=== PATIENT | female | born 1950 ===

== ENCOUNTER 2017-07-19 17:51 | Inpatient (IN) | payer MEDICAID, MEDICARE, OTHER ==
[2017-07-19 18:31] VITALS: BMI 41.1
--- NOTE | 2017-07-19 19:29 | ED PDOC ---
Addendum entered and electronically signed by Sami Cornell DO 01:00: ED Course And Treatment - Laboratory Results Result Diagrams: 07/19/17 19:00 07/19/17 19:00 O2 Sat by Pulse Oximetry: 97 Progress Note: NIH Stroke Scale: 9. Parameters were followed per work up and management advice: - Consulted Neurology. - tPA evaluation: Patient has had symptoms for 18 days, outside of the window for tPA intervention. - Further imaging was requested: CT Brain and MRI Brain. - Seizure activity was assessed - pt had no loss of bowel/bladder, no tongue biting, no post-ictal state, no history of seizure activity. Original Note: Arrival/HPI <Sami Cornell - Last Filed: 07/20/17 00:56> <Bruce Panchal - Last Filed: 07/20/17 19:34> - General Chief Complaint: Trauma Time Seen by Provider: 07/19/17 18:00 - History of Present Illness Narrative History of Present Illness (Text): 07/19/17 21:56 67 nepali speaking F with past medical history pertinent for HLD and uterine CA presents with 18 days of L sided weakness s/p 5 falls. Patient and her state that they noticed her getting progressively weaker over the past 18 days, and during that time span she has been falling out of her chair due to weakness in her left side. Patient denies hitting her head or loss of consciousness when she fell today. Patient further states that there is no aura before she falls and that she does not feel dizzy or light headed, just feels weak and feels like she is losing control of her left side. Patient does not remember when her last ECHO or her last Stress Test was, but admits to having a catheterization without stent placement recently. Patient denies f/ch/n/v/d/sob/cp. She further denies hematchezia, hematuria, hematemesis, urinary frequency, urinary retention, and loss of bowel/bladder. No further complaints. (Sami Cornell) Past Medical History - Provider Review Nursing Documentation Reviewed: Yes - Travel History Have you recently traveled outside [place] w/in the past 3 mons?: No - Infectious Disease Hx of Infectious Diseases: None - Reproductive Menopause: Yes - Cardiac Hx Hypertension: Yes - Endocrine/Metabolic Hx Diabetes Mellitus Type 1: Yes - Hematological/Oncological Hx Cancer: Yes Other/Comment: Uterus cancer- last cheml in february 2017 - Musculoskeletal/Rheumatological Hx Falls: Yes - Gastrointestinal Hx Gastrointestinal Disorders: No - Genitourinary/Gynecological Hx Genitourinary Disorders: No - Psychiatric Hx Psychophysiologic Disorder: No Hx Substance Use: No - Anesthesia Hx Anesthesia: No <Kraig,Sami Wilkinsremy - Last Filed: 07/20/17 00:56> Family/Social History - Physician Review Nursing Documentation Reviewed: Yes Family/Social History: No Known Family HX Smoking Status: Never Smoked Hx Alcohol Use: No Hx Substance Use: No <KraigSami diaz Frankyremy - Last Filed: 07/20/17 00:56> Allergies/Home Meds <Sami Cornell Frankyremy - Last Filed: 07/20/17 00:56> <Bruce Panchal - Last Filed: 07/20/17 19:34> Allergies/Adverse Reactions: Allergies Penicillins Allergy (Verified 07/19/17 18:41) ANGIOEDEMA Home Medications: Home Meds Medication Instructions Recorded Confirmed Aspirin [Aspirin Chewable] 81 mg PO DAILY 02/14/16 07/19/17 Atorvastatin Calcium [Lipitor] 40 mg PO DAILY 02/14/16 07/19/17 Gabapentin [Neurontin] 300 mg PO TID 02/14/16 07/19/17 Albuterol HFA [Ventolin HFA 90 2 puff IH Q6 PRN 07/19/17 07/19/17 mcg/actuation (8 g)] Cetirizine HCl [Zyrtec Allergy] 10 mg PO PRN 07/19/17 07/19/17 Cholecalciferol [Vitamin D] 50,000 iu PO QWK 07/19/17 07/19/17 Escitalopram [Lexapro] 10 mg PO DAILY 07/19/17 07/19/17 Fluticasone Nasal [Flonase] 2 spray ANNELISE DAILY 07/19/17 07/19/17 Glimepiride [amaRYL] 4 mg PO ACB 07/19/17 07/19/17 Icosapent Ethyl [Vascepa] 2 cap PO DAILY 07/19/17 07/19/17 Lisinopril [Prinivil] 5 mg PO DAILY 07/19/17 07/19/17 Omeprazole 40 mg PO DAILY 07/19/17 07/19/17 Ondansetron [Zofran] 4 mg PO PRN PRN 07/19/17 07/19/17 SITagliptin [Januvia] 100 mg PO DAILY 07/19/17 07/19/17 Review of Systems - Physician Review All systems were reviewed & negative as marked: Yes - Review of Systems Constitutional: Fatigue. absent: Weight Change, Fevers Eyes: Normal. absent: Vision Changes, Photophobia, Eye Pain ENT: Normal. absent: Hearing Changes, Tinnitus, Epistaxis Respiratory: Normal. absent: SOB, Cough, Sputum, Wheezing Cardiovascular: Normal. absent: Chest Pain, Palpitations, Calf Pain Gastrointestinal: Normal. absent: Abdominal Pain, Diarrhea, Nausea, Vomiting Genitourinary Female: Normal. absent: Dysuria, Frequency, Hematuria Musculoskeletal: Normal. absent: Arthralgias, Back Pain Skin: Normal. absent: Rash, Pruritis, Skin Lesions Neurological: Focal Weakness (See HPI). absent: Normal, Headache, Dizziness Endocrine: Normal. absent: Diaphoresis, Polyuria Hemo/Lymphatic: Normal. absent: Adenopathy, Easy Bleeding Psychiatric: Normal. absent: Anxiety, Depression, Suicidal Ideation <Sami Cornell - Last Filed: 07/20/17 00:56> Physical Exam Temperature: Afebrile Blood Pressure: Hypertensive Pulse: Regular Respiratory Rate: Normal Appearance: Positive for: Well-Appearing, Non-Toxic, Comfortable Pain Distress: None Mental Status: Positive for: Alert and Oriented X 3 Finger Stick Blood Glucose: 178 - Systems Exam Head: Present: Atraumatic, Normocephalic. No: Tenderness, Contusion, Swelling Pupils: Present: Other (L pupil sluggishly accomodating and sluggishly reactive to light) Extroacular Muscles: Present: Other (L eye has horizontal nystagmus when EOM tested. R eye EOMI) Conjunctiva: Present: Normal. No: Injected, Icteric Ears: Present: Normal. No: NORMAL TM, Erythema Mouth: Present: Moist Mucous Membranes. No: Dry, Drooling, Trismus Pharnyx: Present: Normal. No: ERYTHEMA, EXUDATE, TONSILS ENLARGED Nose (External): No: Atraumatic, Abrasion, Contusion Nose (Internal): Present: Normal Inspection. No: Engorged, Edematous Neck: Present: Normal Range of Motion. No: Meningeal Signs, MIDLINE TENDERNESS , Paraspinal Tenderness Respiratory/Chest: Present: Clear to Auscultation, Good Air Exchange. No: Respiratory Distress, Accessory Muscle Use Cardiovascular: Present: Regular Rate and Rhythm, Normal S1, S2. No: Murmurs, Rub Abdomen: Present: Normal Bowel Sounds. No: Tenderness, Distention, Peritoneal Signs, Rebound, Guarding Rectal: Present: Normal Rectal Tone. No: Occult Blood, Rectal Tenderness, Gross Blood, Melena, Hemorrhoids, Fissures, Nodule/Mass/Lesions Back: Present: Normal Inspection. No: CVA Tenderness, Midline Tenderness, Paraspinal Tenderness Upper Extremity: Present: Normal Inspection. No: Cyanosis, Edema, Normal ROM, Neurovascularly Intact (Patient's LUE has 3/5 muscle strength, loss of sensation more on UE than LE) Lower Extremity: Present: Normal Inspection, NORMAL PULSES. No: Edema, CALF TENDERNESS, Cyanosis, Normal ROM, Neurovascularly Intact (Pt's muscle strength in LLE is 2/5 and has almost complete loss of sensation.) Neurological: Present: GCS=15, CN II-XII Intact, Speech Normal, Normal 2Pt Descrimination. No: Motor Func Grossly Intact, Normal Sensory Function (See extremities exam), Normal Cerebellar Funct (Patient is not stable on her feet.) , Norm Deep Tendon Reflexes (1+ LUE and LLE) Skin: Present: Warm, Dry, Normal Color. No: Rashes, Laceration Lymphatic: No: Cervical Adenopathy, Axillary Adenopathy, Inguinal Adenopathy Psychiatric: Present: Alert, Oriented x 3, Normal Insight, Normal Concentration , Normal Affect, Normal Mood. No: Suicidal Ideation, Homicidal Ideation <Sami Cornell - Last Filed: 07/20/17 00:56> Medical Decision Making <Sami Cornell - Last Filed: 07/20/17 00:56> <Bruce Panchal - Last Filed: 07/20/17 19:34> ED Course and Treatment: Assessed: 07/19/17 19:20 Impression: 67 F PMHx of uterine ca with 18 days duration of L sided weakness. L sided facial droop and weakness on exam Plan: - CMP, CBC, Coags, UA U Cx, A1C - EKG - CT Head - Glucose FS Reassessed: 07/19/17 20:30 - CT shows old hemorrhagic stroke VS old stroke VS possible mass - CBC shows acute anemia, FOBT negative - ASA 325 - Dexamethasone - Order Brain MRI - Neuro/s C/s - Neuro C/s - Case d/w Dr. Stephens, who agrees to admission to Hospitalist service on Tele (Sami Cornell) Seen and examined with resident. 67 y/o F c PMHx uterine cancer p/w frequent falls x 1-2 weeks. On exam, L arm and leg motor weakness and L sided facial droop. (Bruce Panchal) - Lab Interpretations Lab Results: 07/19/17 19:00 07/19/17 19:00 Lab Results 07/19/17 19:30: Urine Color Yellow, Urine Appearance Clear, Urine pH 6.5, Ur Specific [place] 1.010, Urine Protein Negative, Urine Glucose (UA) Negative, Urine Ketones Negative, Urine Blood Negative, Urine Nitrate Negative, Urine Bilirubin Negative, Urine Urobilinogen 0.2, Ur Leukocyte Esterase Trace H, Urine RBC Negative, Urine WBC 2 - 5, Ur Epithelial Cells 3 - 4, Urine Bacteria Few 07/19/17 19:00: Hemoglobin A1c 6.8 H 07/19/17 19:00: Sodium 140, Potassium 3.8, Chloride 102, Carbon Dioxide 27, Anion Gap 15, BUN 20, Creatinine 0.9, Est GFR ( Amer) > 60, Est GFR (Non- Af Amer) > 60, Random Glucose 155 H, Calcium 9.5, Total Bilirubin 0.3, AST 28, ALT 39, Alkaline Phosphatase 88, Troponin I < 0.01, Total Protein 6.9, Albumin 3.9, Globulin 3.0, Albumin/Globulin Ratio 1.3, Triglycerides 415 H, Cholesterol 220 H, LDL Cholesterol Direct 123, HDL Cholesterol 38 07/19/17 19:00: PT 10.3, INR 0.95, APTT 27.0 07/19/17 19:00: WBC 5.9, RBC 2.93 L, Hgb 8.6 L, Hct 26.6 L, MCV 90.8, MCH 29.4, MCHC 32.3, RDW 13.3, Plt Count 216, MPV 9.0, Gran % 73.9 H, Lymph % (Auto) 16.9 L, [place] % (Auto) 6.6 H, Eos % (Auto) 2.4, Baso % (Auto) 0.2, Gran # 4.36, Lymph # 1.0 L, [place] # 0.4, Eos # 0.1, Baso # 0.01 - RAD Interpretation Radiology Orders: 07/19/17 19:13 CHEST PORTABLE [RAD] Stat 07/19/17 19:30 HEAD W/O CONTRAST [CT] Stat 07/20/17 05:00 BRAIN W & WO CONTRAST [MRI] Routine - Medication Orders Current Medication Orders: Albuterol/Ipratropium (Duoneb 3 Mg/0.5 Mg (3 Ml) Ud) 3 ml IH Q2H PRN PRN Reason: Shortness of Breath Atorvastatin Calcium (Lipitor) 40 mg PO DAILY [facility] Last Admin: 07/20/17 10:48 Dose: 40 mg Dexamethasone (Decadron Inj) 4 mg IVP Q6H [facility] Last Admin: 07/20/17 15:20 Dose: 4 mg Ergocalciferol (Drisdol 50,000 Intl Units Cap) 1 cap PO Q7D [facility] Escitalopram Oxalate (Lexapro) 10 mg PO DAILY [facility] Last Admin: 07/20/17 10:44 Dose: 10 mg Gabapentin (Neurontin) 300 mg PO TID [facility] PRN Reason: Protocol Last Admin: 07/20/17 17:47 Dose: 300 mg Insulin Human Lispro (Humalog Med) 0 units SC ACHS [facility] PRN Reason: Protocol Last Admin: 07/20/17 17:48 Dose: 5 units Lisinopril (Zestril) 5 mg PO DAILY [facility] Last Admin: 07/20/17 10:44 Dose: 5 mg Loratadine (Claritin) 10 mg PO DAILY PRN PRN Reason: ALLERGY SYMPTOMS Metoprolol Succinate (Toprol Xl) 25 mg PO BRK [facility] Last Admin: 07/20/17 10:47 Dose: 25 mg Non-Formulary Medication (Icosapent Ethyl [Vascepa]) 2 cap PO DAILY [facility] Last Admin: 07/20/17 10:48 Dose: Ondansetron HCl (Zofran Tab) 4 mg PO Q6 PRN PRN Reason: Nausea/Vomiting Pantoprazole Sodium (Protonix Ec Tab) 40 mg PO 0600,1600 [facility] Last Admin: 07/20/17 17:48 Dose: 40 mg Discontinued Medications Aspirin (Aspirin) 325 mg PO STAT STA Stop: 07/19/17 19:14 Last Admin: 07/19/17 20:44 Dose: 325 mg Gadodiamide (Omniscan No Safepak) Confirm Administered Dose 4,305 mg IV .STK- MED ONE Stop: 07/20/17 13:43 NIHSS Scale ([place]) Time Performed: 18:00 - How Severe is the Stoke Baseline Level of Consciousness: 0=Alert LOC to Questions: 0=Both comments correct LOC to commands: 0=Obeys both correctly Best Gaze: 0=Normal Visual: 0=No visual loss Facial: 2=Partial (lower face paralysis) Motor Arm - Left: 2=Falls before 10 sec Motor Arm - Right: 0=No drift Motor Leg - Left: 2=Falls before 5 sec Motor Leg - Right: 0=No drift Limb Ataxia: 0=Absent Sensory: 1=Mild to moderate loss Best Language: 0=No aphasia Dysarthia: 0=Normal articulation Extinction & Inattention (Neglect): 0=Normal, no object Score: 7 Risk Level: Mod Stroke Risk <Bruce Panchal - Last Filed: 07/20/17 19:34> rTPA Inclusion/Exclusion - Refusal of Treatment Patient Refused Treatment: No - Inclusion Criteria for Altepase Patient is 18 years or Older: Yes The Clinical Diagnosis of Ischemic Stroke That is Causing a Potentially Disabling Neurological Deficit: Yes Time of Onset is Well Established to be Less Than 270 Minute Before Treatment Would Begin: No Risk/Benefit Discussed With Patient/Family Member Present: Yes - Exclusion Criteria for Altepase History of: Intracranial hemorrhage, Brain Tumor <Bruce Panchal - Last Filed: 07/20/17 19:34> Disposition/Present on Arrival - Present on Arrival Any Indicators Present on Arrival: Yes History of DVT/PE: No History of Uncontrolled Diabetes: Yes Urinary Catheter: No History of Decub. Ulcer: No History Surgical Site Infection Following: None - Disposition Have Diagnosis and Disposition been Completed?: Yes Disposition Time: 21:45 Patient Plan: Admission <Sami Cornell - Last Filed: 07/20/17 00:56> <Imm,Bruce T - Last Filed: 07/20/17 19:34> - Disposition Diagnosis: CVA (cerebral vascular accident) Disposition: HOSPITALIZED Patient Problems: Current Active Problems Problem Status Onset CVA (cerebral vascular accident) Acute Condition: GUARDED
[2017-07-19 19:31] LABS: BASO # 0.01 K/mm3 (0.0-2.0); BASO % 0.2 % (0.0-3.0); EOS # 0.1 (0.0-0.7); EOS % 2.4 % (1.5-5.0); GRAN # 4.36 (1.4-6.5); GRAN % 73.9 % (50.0-68.0); HEMATOCRIT 26.6 % (36.0-48.0); LYMPH % 16.9 % (22.0-35.0); MEAN CELL VOLUME 90.8 fl (80.0-105.0); MEAN CORPUSCULAR HEMOGLOBIN 29.4 pg (25.0-35.0); MEAN CORPUSCULAR HGB CONC 32.3 g/dl (31.0-37.0); MONO # 0.4 (0.1-0.6); MONO % 6.6 % (1.0-6.0); RED CELL DISTRIBUTION WIDTH 13.3 % (11.5-14.5); WHITE BLOOD COUNT 5.9 10^3/ul (4.5-11.0)
[2017-07-19 19:40] LABS: PH,URINE 6.5 (4.7-8.0); URINE BILIRUBIN NEGATIVE (NEGATIVE); URINE BLOOD NEGATIVE (NEGATIVE); URINE GLUCOSE (UA) NEGATIVE (NEGATIVE); URINE KETONE NEGATIVE (NEGATIVE); URINE LEUKOCYTE ESTERASE TRACE Leu/uL (NEGATIVE); URINE PROTEIN NEGATIVE mg/dL (<30 mg/dL); URINE UROBILINOGEN 0.2 E.U./dL (<1 E.U./dL)
[2017-07-19 19:40] LABS: INR 0.95 (0.93-1.08)
[2017-07-19 19:42] LABS: URINE APPEARANCE CLEAR (CLEAR); URINE COLOR YELLOW (YELLOW)
[2017-07-19 19:45] LABS: ALB/GLOB RATIO 1.3 (1.1-1.8); ALKALINE PHOSPHATASE 88 U/L (38-126); ALT/SGPT 39 U/L (7-56); AST/SGOT 28 U/L (14-36); BILIRUBIN,TOTAL 0.3 mg/dL (0.2-1.3); BLOOD UREA NITROGEN 20 mg/dL (7-21); CALCIUM 9.5 mg/dL (8.4-10.5); CARBON DIOXIDE 27 mmol/L (21-33); CHLORIDE 102 mmol/L (98-107); CHOLESTEROL 220 mg/dL (130-200); GFR AFRICAN-AMERICAN > 60; GLUCOSE,RANDOM 155 mg/dL (70-110); POTASSIUM 3.8 mmol/L (3.6-5.0); SODIUM 140 mmol/L (132-148); TOTAL PROTEIN 6.9 g/dL (5.8-8.3)
[2017-07-19 19:59] LABS: URINE BACTERIA FEW (NEG); URINE RBC NEGATIVE /hpf (0-2)
[2017-07-19 20:04] LABS: TROPONIN I < 0.01 ng/mL
--- NOTE | 2017-07-19 20:48 | CT ---
EXAM: CT Head Without Intravenous Contrast EXAM DATE/TIME: 07/19/2017 7:30 PM CLINICAL HISTORY: The patient age is 67 years old and is female; Signs and symptoms; Other: [id number]; Additional info: R/O old CVA Facility exam id and description: Ct heads head w/o contrast TECHNIQUE: Axial computed tomography images of the head/brain without intravenous contrast. All CT scans at this facility use one or more dose reduction techniques, viz.: automated exposure control; ma/kV adjustment per patient size (including targeted exams where dose is matched to indication; i.e. head); or iterative reconstruction technique. COMPARISON: No relevant prior studies available. FINDINGS: Brain: Within the right parietal lobe, there is a hypodense fluid collection or mass measuring 5.1 x 3.5 cm. This causes mass effect upon the right lateral ventricle. Foci of high density are identified within this abnormality, consistent with calcification or hemorrhage. There is a surrounding zone of hypodense edema. There is effacement of the right parietal sulci overlying the mass. There is midline shift to the left of approximately 4 mm. There are scattered additional foci of hypodensity within the cerebral white matter, likely representing small vessel ischemic disease in a patient this age. The acuity of the white matter disease is indeterminate. The white-ariza differentiation is otherwise preserved demonstrating no acute territorial type infarct. Ventricles: See above. Bones/joints: The calvarium demonstrates no evidence for a depressed fracture. Soft tissues: No acute abnormality. Vasculature: There is atherosclerotic calcification of the cavernous internal carotid arteries and distal vertebral arteries. Sinuses: Unremarkable as visualized. No acute sinusitis. Mastoid air cells: No mastoid effusion. IMPRESSION: 1. Within the right parietal lobe, there is a hypodense fluid collection or mass measuring 5.1 x 3.5 cm. This causes mass effect upon the right lateral ventricle. Foci of high density are identified within this abnormality, consistent with calcification or hemorrhage. There is a surrounding zone of hypodense edema. Differential considerations include malignancy and abscess. MRI with/without contrast is recommended. 2. There is effacement of the right parietal sulci overlying the mass. There is midline shift to the left of approximately 4 mm. 3. There are scattered additional foci of hypodensity within the cerebral white matter, likely representing small vessel ischemic disease in a patient this age. 4. Incidental/non-acute findings are described above.
[2017-07-19] MEDS: Dexamethasone 4 mg/1 ml IVP SCH (21:30)
--- NOTE | 2017-07-19 23:18 | CP.PCM.HP ---
<JONE AIKEN - Last Filed: 07/20/17 02:26> History of Present Illness - History of Present Illness History of Present Illness: CC: left-sided weakness and falls Ms. Watson is a 67yo Armenian F with PMH Uterine CA (s/p hysterectomy, chemo and radiation), HTN, DM2, and HLD who presents c/o LUE and LLE weakness and falls that began 8 days ago. Translation was provided by an ED staff member as well as . Pt states on 06/29, she noticed that she was climbing 4 flights of stairs when she got unusually tired and felt like she was slurring her speech. Then, 8 days ago, she slipped and fell off her chair, and could not lift herself up for over 40mins. Over the span of the 8 days, the patient fell 5 times in total. Per , the patient has a walker but has not been able to use it due to the unilateral L-sided weakness that she's experienced. Pt also complaining of some back pain due to "hernia" in her back (not new), but denied losing bowel/urinary control. Pt denied LOC, head trauma, facial drooping , changes in vision or hearing, n/v/d/constipation, cp/palpitations, sob, dysuria, urinary frequency, fevers/chills, recent illness, recent travel or recent sick contacts. Pt states that she was diagnosed with CA 3 yrs ago but has not been able to see her oncologist since 3 months ago when she states she received last chemotherapy. 10-point ROS was reviewed and is pertinent as above , otherwise unremarkable. PMH: Uterine CA (s/p total abdominal hysterectomy w/ B/L salpingo-oophrectomy, radiation and chemotherapy), HTN, DM2, HLD, and ?herniated discs PSH: FITO w/ B/L salpingo-oophrectomy (3yrs ago), cholecystectomy Meds: as per [facility] Allergies: PCN (rash), and the cold SHx: denied tobacco/etoh/drug use FHx: Mom (breast CA) PMD: Dr. Edna Russell ([facility]) Onc: Dr. Sharon Gaona ([facility]) Present on Admission - Present on Admission Any Indicators Present on Admission: No History of DVT/PE: No History of Uncontrolled Diabetes: No Review of Systems - Review of Systems All systems: reviewed and no additional remarkable complaints except (as per HPI ) Past Patient History - Infectious Disease Hx of Infectious Diseases: None - Past Medical History & Family History Past Medical History?: Yes Pertinent Family History: Mother: Breast CA - Past Social History Smoking Status: Never Smoked Alcohol: None Drugs: Denies Home Situation {Lives}: With Family - CARDIAC Hx Cardiac Disorders: Yes Hx Atrial Fibrillation: No Hx Hypercholesterolemia: Yes Hx Hypertension: Yes - PULMONARY Hx Respiratory Disorders: No Hx Asthma: No (didn't mention) - NEUROLOGICAL Hx Neurological Disorder: No Hx Seizures: No Hx Syncope: No - HEENT Hx HEENT Problems: Yes Hx Cataracts: Yes - RENAL Hx Chronic Kidney Disease: No - ENDOCRINE/METABOLIC Hx Endocrine Disorders: Yes Hx Diabetes Mellitus Type 2: Yes - HEMATOLOGICAL/ONCOLOGICAL Hx Blood Disorders: Yes Hx Cancer: Yes (uterine ) Hx Chemotherapy: Yes Other/Comment: Uterus cancer- last cheml in february 2017 - INTEGUMENTARY Hx Dermatological Problems: No - MUSCULOSKELETAL/RHEUMATOLOGICAL Hx Musculoskeletal Disorders: Yes Hx Falls: Yes - GASTROINTESTINAL Hx Gastrointestinal Disorders: No - GENITOURINARY/GYNECOLOGICAL Hx Genitourinary Disorders: No - PSYCHIATRIC Hx Psychophysiologic Disorder: No Hx Substance Use: No - SURGICAL HISTORY Hx Surgeries: Yes Hx Cholecystectomy: Yes Hx Hysterectomy: Yes - ANESTHESIA Hx Anesthesia: Yes Hx Anesthesia Reactions: No Hx Malignant Hyperthermia: No Meds Allergies/Adverse Reactions: Allergies Allergy/AdvReac Type Severity Reaction Status Date / Time Penicillins Allergy ANGIOEDEMA Verified 07/19/17 18:41 Physical Exam - Constitutional Appears: Well, Non-toxic, No Acute Distress - Head Exam Head Exam: ATRAUMATIC, NORMAL INSPECTION, NORMOCEPHALIC - Eye Exam Eye Exam: EOMI, Nystagmus (w/ R lateral gaze), PERRL. absent: Conjunctival injection Pupil Exam: NORMAL ACCOMODATION - ENT Exam ENT Exam: Mucous Membranes Moist, Normal Exam - Neck Exam Neck exam: Positive for: Normal Inspection - Respiratory Exam Respiratory Exam: Wheezes, NORMAL BREATHING PATTERN. absent: Accessory Muscle Use, Chest Wall Tenderness, Rales, Rhonchi, Stridor - Cardiovascular Exam Cardiovascular Exam: RRR, +S1, +S2. absent: JVD - GI/Abdominal Exam GI & Abdominal Exam: Normal Bowel Sounds, Soft. absent: Distended, Guarding, Tenderness Additional comments: obese habitus - Extremities Exam Extremities exam: Negative for: calf tenderness, full ROM (limited LUE and LLE ROM ), pedal edema, tenderness - Back Exam Back exam: vertebral tenderness (lower thoracic spine). absent: CVA tenderness (L), CVA tenderness (R), paraspinal tenderness, rash noted Additional comments: not step-offs - Neurological Exam Neurological exam: Alert, Oriented x3 - Expanded Neurological Exam Expanded Patient oriented to: person, place, time Cranial nerves: EOM's Intact: Normal, Facial Palsey w/Forehead Movement: Normal , Facial Palsey w/o Forehead Movement: Normal, Facial Sensation: Normal, Nystagmus: Abnormal Right Cerebellar Function: Finger to Nose: Abnormal Left Upper motor neuron: Babinski Sign: Normal, Pronator Drift: Abnormal Left Sensory exam: Lower Extremity Light Touch: Normal, Upper Extremity Light Touch: Normal Neuro motor strength exam: Left Upper Extremity: 3, Right Upper Extremity: 4, Left Lower Extremity: 3, Right Lower Extremity: 4 - Psychiatric Exam Psychiatric exam: Normal Affect, Normal Mood - Skin Skin Exam: Normal Color, Warm - Additional Findings Additional findings: pt is obese L chest port in place Results - Vital Signs Recent Vital Signs: Last Vital Signs Temp 98.5 F 07/19/17 18:03 Pulse 86 07/19/17 22:58 Resp 18 07/19/17 22:58 BP 144/87 07/19/17 22:58 Pulse Ox 97 07/19/17 22:58 - Labs Result Diagrams: 07/19/17 19:00 07/19/17 19:00 Assessment & Plan - Assessment and Plan (Free Text) Assessment: 67 yo F with PMH Uterina CA s/p hysterectomy and chemo and radiation, DM2, HTN and HLD who p/w falls and L-sided weakness x8 days; CT head found have 5.1x3.5 cm fluid collection vs mass with L mass effect of 4mm. Plan: 1. Falls likely 2/2 sudden de-conditioning likely due to brain tumor w/ mass effect vs hemorrhagic vs ischemic CVA w/ hemorrhagic conversion - infectious causes ([employer] infection vs UTI) unlikely as pt is afebrile, with no leukocytosis or septic signs and due to history; will hold abx - high fall risk - L hip/L shoulder X-Ray to r/o fractures - bed side swallow eval - PT/OT eval - hold ASA due to uncertain nature of mass vs head bleed - Transfer to tele for monitoring; r/o AFib - anaya in due to high risk of falling 2. New brain mass vs fluid collection on Head CT - Decadron 4mg Q6H for cerebral edema - MRI Head AM, f/u results - seizure precaution - neur checks q3-4 - Neuro consult, recs appreciated - No Onc consult at this time; please consult after MRI if found to be a new mass 3. Wheezing on exam likely allergic cause vs asthma - Duonebs PRN 4. Hx uterine cancer - Contact Oncologist to find out dates of treatments 5. Hx HTN - cont home meds 6. DM - ISS - FS qACHS - A1C levle Full liquid diet (passed nurse swallow screen x2) SCDs/PTX Patient was seen, evaluated and d/w attending, Dr. Angelo Aiken PGY1 - Date & Time Date: 07/20/17 Time: 23:30 NIHSS Scale([place]) 2 Time Performed: 23:00 - How Severe is the Stoke 7-10 days Level of Consciousness: 0=Alert LOC to Questions: 0=Both comments correct LOC to commands: 0=Obeys both correctly Best Gaze: 0=Normal Visual: 0=No visual loss Facial: 0=Normal Motor Arm - Left: 2=Falls before 10 sec Motor Arm - Right: 0=No drift Motor Leg - Left: 3=No effort against gravity (falls immediately) Motor Leg - Right: 0=No drift Limb Ataxia: 0=Absent Sensory: 0=Normal Best Language: 0=No aphasia Dysarthia: 0=Normal articulation Extinction & Inattention (Neglect): 0=Normal, no object Score: 5 Risk Level: Mod Stroke Risk <Jovanny Stephens - Last Filed: 07/20/17 04:51> Results - Vital Signs Recent Vital Signs: Last Vital Signs Temp 98.0 F 07/20/17 00:25 Pulse 83 07/20/17 02:00 Resp 18 07/20/17 01:53 BP 156/77 H 07/20/17 01:53 Pulse Ox 97 07/20/17 01:00 - Labs Result Diagrams: 07/19/17 19:00 07/19/17 19:00 Attending/Attestation - Attestation I have personally seen and examined this patient.: Yes I have fully participated in the care of the patient.: Yes I have reviewed all pertinent clinical information: Yes
[2017-07-20] MEDS ORDERED: Albuterol-Ipratrop 3 mg / 0.5 (3 ml) UD IH PRN (01:20)
[2017-07-20] MEDS: Dexamethasone 4 mg/1 ml IVP SCH ×4 (03:44→20:47)
[2017-07-20] MEDS: Pantoprazole 40 mg EC Tab PO SCH ×2 (05:57→17:48)
[2017-07-20 06:27] LABS: HEMATOCRIT 26.7 % (36.0-48.0); MEAN CELL VOLUME 90.8 fl (80.0-105.0); MEAN CORPUSCULAR HEMOGLOBIN 29.3 pg (25.0-35.0); MEAN CORPUSCULAR HGB CONC 32.2 g/dl (31.0-37.0); RED CELL DISTRIBUTION WIDTH 13.2 % (11.5-14.5); WHITE BLOOD COUNT 7.1 10^3/ul (4.5-11.0)
[2017-07-20 06:39] LABS: ALB/GLOB RATIO 1.3 (1.1-1.8); ALKALINE PHOSPHATASE 97 U/L (38-126); ALT/SGPT 32 U/L (7-56); AST/SGOT 34 U/L (14-36); BILIRUBIN,TOTAL 0.5 mg/dL (0.2-1.3); BLOOD UREA NITROGEN 18 mg/dL (7-21); CALCIUM 9.4 mg/dL (8.4-10.5); CARBON DIOXIDE 30 mmol/L (21-33); CHLORIDE 102 mmol/L (98-107); GFR AFRICAN-AMERICAN > 60; GLUCOSE,RANDOM 183 mg/dL (70-110); SODIUM 142 mmol/L (132-148)
--- NOTE | 2017-07-20 07:54 | RAD ---
HISTORY: possible past cva COMPARISON: 02/14/2016 FINDINGS: LUNGS: No active pulmonary disease. PLEURA: No pleural effusion or pneumothorax. Nonspecific elevation of right hemidiaphragm. CARDIOVASCULAR: Central venous infusion port. Normal heart size. No congestive change. OSSEOUS STRUCTURES: No significant abnormalities. VISUALIZED UPPER ABDOMEN: Normal. OTHER FINDINGS: None. IMPRESSION: No active disease.
[2017-07-20] MEDS ORDERED: Ergocalciferol 50,000 Intl Units Cap PO SCH (10:00)
[2017-07-20] MEDS: Metoprolol Succinate 25 mg XL Tab PO SCH (10:47)
[2017-07-20] MEDS: ICOSAPENT ETHYL PO SCH (10:48)
[2017-07-20] MEDS: Insulin Lispro (humaLOG) MEDIUM Coverage SC SCH ×3 (10:48→17:48)
--- NOTE | 2017-07-20 13:02 | RAD ---
PROCEDURE: Radiographs of the Left Shoulder HISTORY: s/p fall COMPARISON: No prior. FINDINGS: BONES: Normal. No fracture. JOINTS: Normal. Glenohumeral and acromioclavicular joints preserved. No osteoarthritis. SOFT TISSUES: Normal. OTHER FINDINGS: None. IMPRESSION: Normal radiographs of the left shoulder.
--- NOTE | 2017-07-20 13:04 | RAD ---
PROCEDURE: Left Hip and pelvis X-ray Radiographs. HISTORY: s/p fall COMPARISON: None. FINDINGS: BONES: Normal. No fracture. JOINTS: The left hip is rotated making it difficult to exclude a subcapital or femoral neck fracture. There is no obvious displaced fracture seen. The right hip is unremarkable. The pelvis is unremarkable SOFT TISSUES: Normal. OTHER FINDINGS: None. IMPRESSION: The left hip is rotated making it difficult to exclude a subcapital or femoral neck fracture. There is no obvious displaced fracture seen. The right hip is unremarkable. The pelvis is unremarkable
[2017-07-20] MEDS ORDERED: Gadodiamide 287 MG/ML VIAL (15ML) IV ONE (13:42)
--- NOTE | 2017-07-20 13:49 | CARD ---
APPROVED REPORT EKG Measurement Heart [id number] <Conclusion> Sinus tachycardia Otherwise normal ECG
--- NOTE | 2017-07-20 14:40 | CT ---
PROCEDURE: CT left hip HISTORY: r/o fracture, s/p fall COMPARISON: Not available TECHNIQUE: 2.5 mm contiguous axial sections were acquired through the left hip. Sagittal and coronal images were reformatted from the axial scan. FINDINGS: There is no evidence fracture. There is no lytic or blastic osseous lesion. There is no dislocation. There is very mild superior osteoarthritis. There are no articular erosions. There is no soft tissue abnormality appreciated. There is no juxta-articular hematoma evident. Evaluation of the pelvic soft tissues demonstrates the patient to be status post hysterectomy. IMPRESSION: No acute fracture.
--- NOTE | 2017-07-20 14:54 | MRI ---
PROCEDURE: MRI BRAIN WITH AND WITHOUT CONTRAST HISTORY: brain mass, L sided weakness COMPARISON: CT of the head 07/19/2017. No prior MRI studies TECHNIQUE: Multiplanar, multisequence MR images of the brain were obtained with and without intravenous contrast enhancement. FINDINGS: HEMORRHAGE: On the gradient echo images there are some focal areas of hypo intensity consistent with chronic hemosiderin deposition at the margins of the mass. DWI: No evidence of an acute or early subacute infarction. BRAIN PARENCHYMA: There is a large cystic mass in the right parietal lobe measuring 5.7 cm AP x 3.7 cm wide by 5.7 cm height. This has an enhancing rim which is thicker medially and posteriorly. There is some diffusion abnormality in the thicker portions of the rim. The findings are most consistent with either a primary or solitary metastatic neoplastic lesion. The findings are not specific. There are no other lesions seen. There is some mass effect with effacement of the sulci. There is 6 mm of midline shift ENHANCEMENT: Enhancement in the rim of the mass VENTRICLES: Unremarkable. No hydrocephalus. CRANIUM: Unremarkable. ORBITS: Grossly unremarkable. PARANASAL SINUSES/MASTOIDS: Clear VASCULAR SYSTEM: Skull base flow voids intact. OTHER FINDINGS: None . IMPRESSION: Large cystic lesion with an enhancing rim in the right parietal lobe consistent with either a solitary cystic metastatic lesion or primary brain neoplasm.
--- NOTE | 2017-07-20 16:11 | CON ---
NEUROLOGY CONSULTATION REPORT REASON FOR CONSULTATION: Left-sided weakness. HISTORY OF PRESENT ILLNESS: The patient is a 67-year-old female who has been asked for evaluation of left-sided weakness. The patient was experiencing this left-sided weakness over the last 9 days. She was having difficulty with walking and was falling. The patient fell about 5 times over the last 9 days. She is also complaining of dizziness which is described as lightheaded feeling. She denies any loss of hearing or ringing in the ears. She has a history of uterine cancer and has been getting chemotherapy. REVIEW OF SYSTEMS: Denies any chest pain, shortness of breath, abdominal pain, constipation, diarrhea, dysuria, pyuria, cough, or sputum production. PAST MEDICAL HISTORY: Includes uterine cancer, status post total abdominal hysterectomy with bilateral salpingo-oophorectomy, radiation and chemotherapy; hypertension; diabetes mellitus; hypercholesteremia. MEDICATIONS AT HOME: Included Zofran, Vascepa, Zyrtec, Flonase, Januvia, Prinivil, Amaryl, vitamin D, omeprazole, Toprol XL, Neurontin, Lexapro, Lipitor and aspirin. ALLERGIES: TO PENICILLIN. SOCIAL HISTORY: The patient is a nonsmoker, nonalcoholic and does not use any illicit drugs. FAMILY HISTORY: Reviewed and noncontributory to the case. PHYSICAL EXAMINATION GENERAL: The patient is an middle age female, lying on the bed, in no acute distress. VITAL SIGNS: Her blood pressure is 142/81, heart rate is 88 per minute, breathing at a rate of 16, temperature is 98.1 degree Fahrenheit. HEENT EXAM: Head is normocephalic and atraumatic. NECK: Supple. There are no carotid bruits. LUNGS: Clear. CV EXAM: S1 and S2, audible. No murmurs. ABDOMEN: Soft and nontender. Bowel sounds are present. NEUROLOGY EXAMINATION: Mental status. The patient is awake, alert and oriented to time, place and person. Speech is fluent. Naming and repetition normal. Memory and cognition are intact. Cranial Nerve Examination: Pupils are 3 mm bilaterally, reactive to light. Visual carl are full. Extraocular movements are intact. There is decreased nasolabial fold on the left side. Palate is upgoing bilaterally and tongue is midline. Motor Examination: Tone is normal. There is left-sided hemiparesis with power on the left side about 3/5 and on the right side 5/5. Reflexes are absent. Plantars upgoing on the left side and downgoing on the right side. Gait is untestable at the moment because of the left hemiparesis. Sensory Examination: Intact to soft touch and pinprick bilaterally. LABORATORY DATA: Labs reviewed shows WBC of 7.1, hemoglobin 8.6, hematocrit of 26.7, and platelets of 192. Her sodium is 142, potassium 4, chloride 102, carbon dioxide 30, BUN of 18, creatinine of 0.9, and glucose of 183. She had a CT scan of the head done which showed right parietal lobe hypodensity fluid collection or mass measuring 5.1 x 3.5 cm. There is mass effect above the right lateral ventricle, foci of high density identified within the abnormal, consistent with calcification or hemorrhage. There is a effacement of the right parietal sulci overlying the mass. IMPRESSION: Right parietal mass causing the patient to have left-sided hemiparesis. This is possibly secondary to metastasis with her history of uterine cancer. RECOMMENDATION: 1. The patient will have MRI of the brain with and without contrast. 2. The patient is also to have an electrocochleogram. 3. The patient is to have neurosurgical evaluation. 4. The patient was started on dexamethasone which is to be continued. 5. If the patient's EEG shows any epileptogenic activity then consider starting antiseizure medications. 6. Please continue other treatment and supportive care. Thank you for the opportunity to participate in the care of this patient. Rachell Lambert MD
--- NOTE | 2017-07-20 16:20 | CON ---
SUBJECTIVE: This is a 67-year-old [place]inean-speaking woman who was interviewed today with her nurse, who speaks [place]inean, present. She has past medical history of uterine cancer, status post chemo, RT, and hysterectomy, hypertension, and diabetes. She presented with approximately 8-day history of weakness of the left upper and lower extremity. This occurred progressively and did not occur quickly. She has started to feel that she could not walk with her left leg, could not walk up stairs. She slipped and fell off her chair, and could not lift herself up. She had multiple falls over the last 8 days and she was unable to use a walker. She supposedly is in remission from her cancer which was diagnosed 3 years ago, but is questionable how long it has been since she has been worked up. OBJECTIVE: She currently is awake and alert, has 5/5 strength in the right upper and lower extremities, 4+/5 to 5 strength in the left upper extremity. She has approximately 2+ to 3- strength in the iliopsoas on the left, 4+ in the quad and EHL. In plantar flexion, I could not elicit any sensory deficit; however, she is lying in bed with her left leg externally rotated with the hip. On attempting to bring her leg back to initial position, she grimaces in pain, says it hurts upon elevating her left leg at the hip, she says her hip hurts. Pupils are equal. Her EOM's are full. It is impossible to determine whether or not she has full carl. Her tongue is midline. DIAGNOSTIC STUDIES: She presents with a CT of the head showing what appears to be a large fairly deep cystic mass with some evidence of hemorrhage into it. There was some mass effect and shift. She is scheduled for an MRI. ASSESSMENT AND PLAN: At this point, we need to evaluate the MRI. I also spoke to the [employer] Worker and asked them to get an x-ray of her left hip and pelvis to make certain that there is no pathologic fracture there which is causing her increased leg weakness and her hip pain. I also told them that it would be a good idea at this point to either find out when her last metastatic workup was and if was fairly recent, obtain the results, otherwise to repeat a CT of the chest, abdomen, and pelvis as well as a breast ultrasound or mammography whichever is most useful. I will see her after the MRI is done. We will need to decide in addition to whether or not she needs surgery as to whether we need to use the neuronavigation system. It is unfortunately is not available here and she would need to be transferred to another institution to have surgery done under [facility], but that decision will come after the MRI. If you have any further questions, do not hesitate to contact me. Errol Patino MD
[2017-07-21] MEDS: Insulin Lispro (humaLOG) MEDIUM Coverage SC SCH ×5 (00:48→22:28)
[2017-07-21] MEDS: Dexamethasone 4 mg/1 ml IVP SCH ×4 (02:27→22:39)
[2017-07-21] MEDS: Pantoprazole 40 mg EC Tab PO SCH ×2 (05:12→18:09)
[2017-07-21 05:53] LABS: MEAN CELL VOLUME 89.3 fl (80.0-105.0); MEAN CORPUSCULAR HEMOGLOBIN 29.6 pg (25.0-35.0); MEAN CORPUSCULAR HGB CONC 33.2 g/dl (31.0-37.0); MEAN PLATELET VOLUME 8.6 fl (7.0-11.0); WHITE BLOOD COUNT 7.1 10^3/ul (4.5-11.0)
[2017-07-21 06:03] LABS: ALB/GLOB RATIO 1.1 (1.1-1.8); ALKALINE PHOSPHATASE 78 U/L (38-126); ALT/SGPT 28 U/L (7-56); AST/SGOT 28 U/L (14-36); BILIRUBIN,TOTAL 0.6 mg/dL (0.2-1.3); BLOOD UREA NITROGEN 18 mg/dL (7-21); CALCIUM 8.4 mg/dL (8.4-10.5); CARBON DIOXIDE 26 mmol/L (21-33); CHLORIDE 106 mmol/L (95-110); GFR AFRICAN-AMERICAN > 60; GLUCOSE,RANDOM 204 mg/dL (70-110); POTASSIUM 3.4 mmol/L (3.6-5.0); SODIUM 140 mmol/L (132-148); TOTAL PROTEIN 6.2 g/dL (5.8-8.3)
[2017-07-21 06:07] LABS: HEMATOCRIT 22.6 % (36.0-48.0)
[2017-07-21 08:21] LABS: RETIC% 2.14 % (0.5-1.5)
[2017-07-21] MEDS: Metoprolol Succinate 25 mg XL Tab PO SCH (08:36)
[2017-07-21] MEDS: ICOSAPENT ETHYL PO SCH (12:54)
[2017-07-21 13:29] LABS: FOLATE > 20.0 ng/mL
--- NOTE | 2017-07-21 13:57 | PN ---
DATE: 07/21/2017 SUBJECTIVE: The patient is lying on the bed, in no acute distress. Denies having any headache or dizziness. PHYSICAL EXAMINATION: VITAL SIGNS: Her blood pressure is 133/78, heart rate is 98 per minute, breathing at a rate of 16 per minute, temperature is 98.2 degree Fahrenheit. HEENT: Head is normocephalic and atraumatic. NECK: Supple. There are no carotid bruits. LUNGS: Clear. CARDIOVASCULAR: S1 and S2, audible. No murmurs. ABDOMEN: Soft and nontender with bowel sounds are present. NEUROLOGY EXAMINATION: Mental status; the patient is awake, alert and oriented to time, place and person. Speech is fluent. She follows all simple commands. Cranial nerves; pupils are 3 mm bilaterally, reactive to light. Visual carl are full. Extraocular movements are intact. There is no facial asymmetry. She has left hemiparesis with power 3-4/5 and on the right side 5/5. Plantars downgoing on the right side and upgoing on the left side. LABORATORY DATA: Reviewed. MRI of the brain shows large cystic lesion with enhancing rim in the right parietal lobe consistent with either a solitary cystic metastatic lesion or primary brain neoplasm. IMPRESSION: Right parietal mass possible metastasis versus primary neoplasm. RECOMMENDATION: 1. The patient to be continued on Decadron. 2. The patient to have neurosurgical follow up for possible evacuation of the brain mass. 3. Please continue supportive care and other treatment. Thank you for the opportunity to participate in the care of this patient. Rachell Lambert MD
--- NOTE | 2017-07-21 15:56 | CP.PCM.PN ---
<VidalsallyKadedar - Last Filed: 07/21/17 15:55> Subjective - Date & Time of Evaluation Date of Evaluation: 07/21/17 Time of Evaluation: 07:00 - Subjective Subjective: Patient has been seen and examined. No overnight events reported. She still complains of right lateral head pain which resolved with Motrin administration. Patient still complains of left sided weakness. She denies any dizziness, changes in vision, new focal weakness or sensory loss, fever, chills, CP, SOB, N /V/D, constipation or changes in urination. Objective - Vital Signs/Intake and Output Vital Signs (last 24 hours): Temp Pulse Resp BP Pulse Ox 98.2 F 95 H 18 153/86 H 95 07/21/17 06:00 07/21/17 13:01 07/21/17 06:00 07/21/17 13:01 07/20/17 05:59 Intake and Output: 07/21/17 07/21/17 06:59 18:59 Intake Total 120 Output Total 650 Balance -530 - Medications Medications: Current Medications Albuterol/Ipratropium (Duoneb 3 Mg/0.5 Mg (3 Ml) Ud) 3 ml IH Q2H PRN PRN Reason: Shortness of Breath Atorvastatin Calcium (Lipitor) 40 mg PO DAILY [facility] Last Admin: 07/21/17 13:05 Dose: 40 mg Dexamethasone (Decadron Inj) 4 mg IVP Q6H [facility] Last Admin: 07/21/17 13:06 Dose: 4 mg Ergocalciferol (Drisdol 50,000 Intl Units Cap) 1 cap PO Q7D [facility] Escitalopram Oxalate (Lexapro) 10 mg PO DAILY [facility] Last Admin: 07/21/17 13:06 Dose: 10 mg Gabapentin (Neurontin) 300 mg PO TID [facility] PRN Reason: Protocol Last Admin: 07/21/17 13:08 Dose: 300 mg Ibuprofen (Motrin Tab) 400 mg PO Q6H PRN PRN Reason: Pain, moderate (4-7) Insulin Human Lispro (Humalog Med) 0 units SC ACHS [facility] PRN Reason: Protocol Last Admin: 07/21/17 13:07 Dose: 5 units Lisinopril (Zestril) 5 mg PO DAILY [facility] Last Admin: 07/21/17 13:01 Dose: 5 mg Loratadine (Claritin) 10 mg PO DAILY PRN PRN Reason: ALLERGY SYMPTOMS Metoprolol Succinate (Toprol Xl) 25 mg PO BRK [facility] Last Admin: 07/21/17 08:36 Dose: 25 mg Non-Formulary Medication (Icosapent Ethyl [Vascepa]) 2 cap PO DAILY [facility] Last Admin: 07/21/17 12:54 Dose: Not Given Ondansetron HCl (Zofran Tab) 4 mg PO Q6 PRN PRN Reason: Nausea/Vomiting Pantoprazole Sodium (Protonix Ec Tab) 40 mg PO 0600,1600 [facility] Last Admin: 07/21/17 05:12 Dose: 40 mg - Labs Labs: 07/21/17 05:40 07/21/17 05:40 PT 10.3 Seconds (9.9-11.8) 07/19/17 19:00 INR 0.95 (0.93-1.08) 07/19/17 19:00 APTT 27.0 Seconds (23.7-30.8) 07/19/17 19:00 Assessment and Plan - Assessment and Plan (Free Text) Assessment: 67 yo F with PMH Uterina CA s/p hysterectomy and chemo and radiation, DM2, HTN and HLD who p/w falls and L-sided weakness x8 days; CT head found have 5.1x3.5 cm fluid collection vs mass with L mass effect of 4mm. MRI revealed right sided parietal lobe lesion. Neurosurgery aware and will prepare patient for surgery next week Plan: 1. Falls likely 2/2 left sided weakness 2/2 right parietal lobe lesion. - High fall risk protocol - x-rays show no fractures - PT/OT eval - hold ASA due to uncertain nature of mass vs head bleed - EKG showed sinus tach. Otherwise normal EKG - EEG ordered - anaya in due to high risk of falling -Neuro consults, recs appreciated. -Decadron per Neuro. -MRI shows right parietal lobe lesion. Metastasis vs primary tumor. -Neurosurgery next week. F/U with Neurosurgery for plans and scheduling. 2. Wheezing on exam likely allergic cause vs asthma - Duonebs PRN 3. Hx HTN/HLD - cont home meds (lisonopril, Metoprolol) -Cont. Lipitor 4. DM - ISS -Continue GABApentin Full liquid diet (passed nurse swallow screen x2) SCDs/PTX Dispo: Further investigation reveals that patient suspended chemo 3 months ago due to insurance issues. We will continue home meds of Neurontin, Claritin, and Lexapro. Son of patient is Christian Akins Number is . Son will be updated about need for surgery. Patient was seen, evaluated and d/w attending, Everett Alva PGY1 <Marguerite Lambert - Last Filed: 07/21/17 16:57> Objective - Vital Signs/Intake and Output Vital Signs (last 24 hours): Temp Pulse Resp BP Pulse Ox 98.2 F 95 H 18 153/86 H 95 07/21/17 06:00 07/21/17 13:01 07/21/17 06:00 07/21/17 13:01 07/20/17 05:59 Intake and Output: 07/21/17 07/21/17 06:59 18:59 Intake Total 120 Output Total 650 Balance -530 - Medications Medications: Current Medications Albuterol/Ipratropium (Duoneb 3 Mg/0.5 Mg (3 Ml) Ud) 3 ml IH Q2H PRN PRN Reason: Shortness of Breath Atorvastatin Calcium (Lipitor) 40 mg PO DAILY [facility] Last Admin: 07/21/17 13:05 Dose: 40 mg Dexamethasone (Decadron Inj) 4 mg IVP Q6H [facility] Last Admin: 07/21/17 13:06 Dose: 4 mg Ergocalciferol (Drisdol 50,000 Intl Units Cap) 1 cap PO Q7D [facility] Escitalopram Oxalate (Lexapro) 10 mg PO DAILY [facility] Last Admin: 07/21/17 13:06 Dose: 10 mg Gabapentin (Neurontin) 300 mg PO TID [facility] PRN Reason: Protocol Last Admin: 07/21/17 13:08 Dose: 300 mg Ibuprofen (Motrin Tab) 400 mg PO Q6H PRN PRN Reason: Pain, moderate (4-7) Insulin Human Lispro (Humalog Med) 0 units SC ACHS [facility] PRN Reason: Protocol Last Admin: 07/21/17 13:07 Dose: 5 units Lisinopril (Zestril) 5 mg PO DAILY [facility] Last Admin: 07/21/17 13:01 Dose: 5 mg Loratadine (Claritin) 10 mg PO DAILY PRN PRN Reason: ALLERGY SYMPTOMS Metoprolol Succinate (Toprol Xl) 25 mg PO BRK [facility] Last Admin: 07/21/17 08:36 Dose: 25 mg Non-Formulary Medication (Icosapent Ethyl [Vascepa]) 2 cap PO DAILY [facility] Last Admin: 07/21/17 12:54 Dose: Not Given Ondansetron HCl (Zofran Tab) 4 mg PO Q6 PRN PRN Reason: Nausea/Vomiting Pantoprazole Sodium (Protonix Ec Tab) 40 mg PO 0600,1600 [facility] Last Admin: 07/21/17 05:12 Dose: 40 mg - Labs Labs: 07/21/17 05:40 07/21/17 05:40 PT 10.3 Seconds (9.9-11.8) 07/19/17 19:00 INR 0.95 (0.93-1.08) 07/19/17 19:00 APTT 27.0 Seconds (23.7-30.8) 07/19/17 19:00 Attending/Attestation - Attestation I have personally seen and examined this patient.: Yes I have fully participated in the care of the patient.: Yes I have reviewed all pertinent clinical information, including history, physical exam and plan: Yes Notes (Text): I have seen and examined the patient at bedside. Agree with the above note with the following additions/ exceptions: Briefly this is 67 year old female with history of uterine cancer s/p hysterectomy, chemotherapy, DM-2, HTN, dyslipidemia who presented s/p fall and found to have left sided weakness. MRI brain showed cystic mass which can be primary brain tumor vs metastatic. Neurologist and neurosurgeon on board. Continue decadron. EEG result is pending. I have discussed with Dr Lombardi who plans to do surgery early next week. Discussed in detail with the patient in [place] and also discussed with the patient's son. Will consult oncology as well. Patient reports that she stopped following the oncologist due to insurance reasons. Upon discharge patient will follow up with PMD Harinder Hercules. Dr Marguerite Lambert
[2017-07-21] MEDS: ICOSAPENT ETHYL 1 GM PO SCH (18:30)
--- NOTE | 2017-07-21 19:42 | CARD ---
APPROVED REPORT EXAM: Two-dimensional and M-mode echocardiogram with Doppler and color Doppler. INDICATION R/O CARDIOMYOPATHY 2D DIMENSIONS Left Atrium (2D)2.8 (1.6-4.0cm)IVSd1.1 (0.7-1.1cm) LVDd4.6 (3.9-5.9cm)PWd1.2 (0.7-1.1cm) LVDs3.3 (2.5-4.0cm)FS (%) 27.1 % LVEF (%)50.0 (>50%) M-Mode DIMENSIONS Aortic Root3.10 (2.2-3.7cm)Aortic Cusp Exc.1.90 (1.5-2.0cm) Aortic Valve AoV Peak Bjzplrpi268.0cm/Shahla Peak GR.10mmHg Mitral Valve MV E Tphxmitj24.7cm/sMV A Pewsczkf96.7cm/sE/A ratio1.1 TDI Lateral E' Peak V8.58cm/sMedial E' Peak V5.07cm/sE/Lateral E'11.5 E/Medial E'19.5 Pulmonary Valve PV Peak Rnlynarc450.0cm/sPV Peak Grad.5mmHg Tricuspid Valve TR Peak Kodsuzzs011ub/sRAP [id number] Peak Gr.43mmHg [id number] LEFT VENTRICLE The left ventricle is normal size. There is normal left ventricular wall thickness. Left ventricle systolic function is borderline. Mild Septal hypokinesis Transmitral Doppler flow pattern is Grade I-abnormal relaxation pattern. RIGHT VENTRICLE The right ventricle is normal size. There is normal right ventricular wall thickness. The right ventricular systolic function is normal. ATRIA The left atrium size is normal. The right atrium size is normal. AORTIC VALVE The aortic valve is not well visualized. No aortic regurgitation is present. There is no aortic valvular stenosis. MITRAL VALVE The mitral valve is mildly thickened. Mitral regurgitation is trace. TRICUSPID VALVE There is mild tricuspid regurgitation. There is mild to moderate pulmonary hypertension. GREAT VESSELS The aortic root is normal in size. PERICARDIAL EFFUSION There is a trace loculated anterior pericardial effusion. <Conclusion> The left ventricle is normal size. There is normal left ventricular wall thickness. Left ventricle systolic function is borderline. Mild Septal hypokinesis Transmitral Doppler flow pattern is Grade I-abnormal relaxation pattern. There is mild to moderate pulmonary hypertension.
--- NOTE | 2017-07-21 19:43 | CP.PCM.CON ---
History of Present Illness - History of Present Illness History of Present Illness: 67 year olf female with a history of uterine cancer, diagnosd 3 ears ago, s/p FITO-BSO, radiation and chemotherapy (last treated about 3 months ago), admitted with progressive left sided weakness, found to have a brain mass. She notes to progressive left sided weakness over 1 week which prompted her to come to the hospital. She notes to being on chemotherapy for at least 2 years. Per her last conversation with her oncologist, she believes she was doing well but may have had something in her lung. She is not clear if this was felt to be cancer related. Imagin done here, reveals a solitary near 6 cm right parietal mass. Past medical history: Uterine cancer Past surgical history: FITO-BSO Family history: Mother had breast cancer Social history: Denies tobacco, alcohol, and illicit drug use. Allergies: Penicillins Review of systems: All remaining review of systems including HEENT, cardiovascular, respiratory,gastrointestinal, genitourinary, musculoskeletal, dermatologic, neurologic, and psychiatric are negative unless mentioned in the HPI. Past Patient History - Infectious Disease Hx of Infectious Diseases: None - Past Medical History & Family History Past Medical History?: Yes - Past Social History Smoking Status: Never Smoked Alcohol: None Drugs: Denies Home Situation {Lives}: With Family - CARDIAC Hx Cardiac Disorders: Yes Hx Hypercholesterolemia: Yes Hx Hypertension: Yes - PULMONARY Hx Respiratory Disorders: No Hx Asthma: No (didn't mention) - NEUROLOGICAL Hx Neurological Disorder: No Hx Seizures: No Hx Syncope: No - HEENT Hx HEENT Problems: Yes Hx Cataracts: Yes - RENAL Hx Chronic Kidney Disease: No - ENDOCRINE/METABOLIC Hx Diabetes Mellitus Type 2: Yes - HEMATOLOGICAL/ONCOLOGICAL Hx Blood Disorders: Yes Hx Cancer: Yes (uterine ) Hx Chemotherapy: Yes Other/Comment: Uterus cancer- last cheml in february 2017 - INTEGUMENTARY Hx Dermatological Problems: No - MUSCULOSKELETAL/RHEUMATOLOGICAL Hx Musculoskeletal Disorders: Yes Hx Falls: Yes - GASTROINTESTINAL Hx Gastrointestinal Disorders: No - GENITOURINARY/GYNECOLOGICAL Hx Genitourinary Disorders: No - PSYCHIATRIC Hx Psychophysiologic Disorder: No Hx Substance Use: No - SURGICAL HISTORY Hx Surgeries: Yes Hx Cholecystectomy: Yes Hx Hysterectomy: Yes - ANESTHESIA Hx Anesthesia: Yes Hx Anesthesia Reactions: No Hx Malignant Hyperthermia: No Meds Allergies/Adverse Reactions: Allergies Allergy/AdvReac Type Severity Reaction Status Date / Time Penicillins Allergy ANGIOEDEMA Verified 07/19/17 18:41 - Medications Medications: Current Medications Albuterol/Ipratropium (Duoneb 3 Mg/0.5 Mg (3 Ml) Ud) 3 ml IH Q2H PRN PRN Reason: Shortness of Breath Atorvastatin Calcium (Lipitor) 40 mg PO DAILY [facility] Last Admin: 07/21/17 13:05 Dose: 40 mg Dexamethasone (Decadron Inj) 4 mg IVP Q6H [facility] Last Admin: 07/21/17 18:07 Dose: 4 mg Ergocalciferol (Drisdol 50,000 Intl Units Cap) 1 cap PO Q7D [facility] Escitalopram Oxalate (Lexapro) 10 mg PO DAILY [facility] Last Admin: 07/21/17 13:06 Dose: 10 mg Gabapentin (Neurontin) 300 mg PO TID [facility] PRN Reason: Protocol Last Admin: 07/21/17 18:09 Dose: 300 mg Home Med (Home Med) 2 unit PO DAILY [facility] Last Admin: 07/21/17 18:30 Dose: 2 unit Ibuprofen (Motrin Tab) 400 mg PO Q6H PRN PRN Reason: Pain, moderate (4-7) Last Admin: 07/21/17 18:07 Dose: 400 mg Insulin Human Lispro (Humalog Med) 0 units SC ACHS [facility] PRN Reason: Protocol Last Admin: 07/21/17 18:09 Dose: 3 units Lisinopril (Zestril) 5 mg PO DAILY [facility] Last Admin: 07/21/17 13:01 Dose: 5 mg Loratadine (Claritin) 10 mg PO DAILY [facility] PRN Reason: ALLERGY SYMPTOMS Metoprolol Succinate (Toprol Xl) 25 mg PO BRK [facility] Last Admin: 07/21/17 08:36 Dose: 25 mg Ondansetron HCl (Zofran Tab) 4 mg PO Q6 PRN PRN Reason: Nausea/Vomiting Pantoprazole Sodium (Protonix Ec Tab) 40 mg PO 0600,1600 [facility] Last Admin: 07/21/17 18:09 Dose: 40 mg Physical Exam - Head Exam Head Exam: ATRAUMATIC - Eye Exam Eye Exam: Normal appearance - ENT Exam ENT Exam: Mucous Membranes Dry - Respiratory Exam Respiratory Exam: NORMAL BREATHING PATTERN - Cardiovascular Exam Cardiovascular Exam: +S1, +S2 - GI/Abdominal Exam GI & Abdominal Exam: Normal Bowel Sounds - Extremities Exam Extremities exam: Positive for: normal inspection - Neurological Exam Neurological exam: Oriented x3 - Psychiatric Exam Psychiatric exam: Normal Affect, Normal Mood - Skin Skin Exam: Warm Results - Vital Signs Recent Vital Signs: Last Vital Signs Temp 97.6 F 07/21/17 17:38 Pulse 82 07/21/17 18:00 Resp 19 07/21/17 17:38 BP 127/61 07/21/17 17:38 Pulse Ox 95 07/20/17 05:59 - Labs Result Diagrams: 07/21/17 05:40 07/21/17 05:40 Labs: Laboratory Results - last 24 hr 07/20/17 07/20/17 07/20/17 11:44 16:30 21:19 WBC RBC Hgb Hct MCV MCH MCHC RDW Plt Count MPV Retic Count Sodium Potassium Chloride Carbon Dioxide Anion Gap BUN Creatinine Est GFR ( Amer) Est GFR (Non-Af Amer) POC Glucose (mg/dL) 316 H 268 H 218 H Random Glucose Calcium Ferritin Total Bilirubin AST ALT Alkaline Phosphatase Total Protein Albumin Globulin Albumin/Globulin Ratio Vitamin B12 Folate 07/21/17 07/21/17 07/21/17 05:30 05:40 05:40 WBC 7.1 RBC 2.53 L Hgb 7.5 L Hct 22.6 L MCV 89.3 MCH 29.6 MCHC 33.2 RDW 13.0 Plt Count 197 MPV 8.6 Retic Count 2.14 H Sodium 140 Potassium 3.4 L Chloride 106 Carbon Dioxide 26 Anion Gap 11 BUN 18 Creatinine 0.8 Est GFR ( Amer) > 60 Est GFR (Non-Af Amer) > 60 POC Glucose (mg/dL) Random Glucose 204 H Calcium 8.4 Ferritin Total Bilirubin 0.6 AST 28 ALT 28 Alkaline Phosphatase 78 Total Protein 6.2 Albumin 3.3 Globulin 2.9 Albumin/Globulin Ratio 1.1 Vitamin B12 Folate 07/21/17 07/21/17 07/21/17 05:40 07:26 12:54 WBC RBC Hgb Hct MCV MCH MCHC RDW Plt Count MPV Retic Count Sodium Potassium Chloride Carbon Dioxide Anion Gap BUN Creatinine Est GFR ( Amer) Est GFR (Non-Af Amer) POC Glucose (mg/dL) 245 H 266 H Random Glucose Calcium Ferritin 237.0 Total Bilirubin AST ALT Alkaline Phosphatase Total Protein Albumin Globulin Albumin/Globulin Ratio Vitamin B12 508 Folate > 20.0 Assessment & Plan (1) Brain mass Assessment and Plan: on steroids will check CT C/A/P uterine cancer does not commonly metastasize to the brain will add breast cancer tumor marker; last mammogram 4 years ago further treatment recommendations based on imaging Status: Acute (2) Anemia Assessment and Plan: will check ferritin, retic count, b12, folate, FOBT to further characterize transfusion support PRN Thank you for this interesting consult. Status: Acute
[2017-07-22] MEDS: Dexamethasone 4 mg/1 ml IVP SCH ×4 (00:24→21:29)
[2017-07-22] MEDS: Pantoprazole 40 mg EC Tab PO SCH ×2 (05:20→19:49)
[2017-07-22 07:26] LABS: HEMATOCRIT 28.8 % (36.0-48.0); MEAN CORPUSCULAR HEMOGLOBIN 28.8 pg (25.0-35.0); MEAN CORPUSCULAR HGB CONC 31.9 g/dl (31.0-37.0); MEAN PLATELET VOLUME 8.8 fl (7.0-11.0); RETIC% 2.59 % (0.5-1.5); WHITE BLOOD COUNT 8.2 10^3/ul (4.5-11.0)
[2017-07-22 07:52] LABS: IRON 106 ug/dL (45-180)
[2017-07-22 07:55] LABS: ALB/GLOB RATIO 1.3 (1.1-1.8); ALKALINE PHOSPHATASE 85 U/L (38-126); ALT/SGPT 40 U/L (7-56); AST/SGOT 26 U/L (14-36); BILIRUBIN,TOTAL 0.5 mg/dL (0.2-1.3); BLOOD UREA NITROGEN 28 mg/dL (7-21); CALCIUM 9.6 mg/dL (8.4-10.5); CARBON DIOXIDE 29 mmol/L (21-33); CHLORIDE 102 mmol/L (98-107); GFR AFRICAN-AMERICAN > 60; GLUCOSE,RANDOM 249 mg/dL (70-110); POTASSIUM 4.7 mmol/L (3.6-5.0); SODIUM 140 mmol/L (132-148); TOTAL PROTEIN 7.1 g/dL (5.8-8.3)
[2017-07-22] MEDS: Insulin Lispro (humaLOG) MEDIUM Coverage SC SCH ×4 (09:40→21:25)
[2017-07-22] MEDS: ICOSAPENT ETHYL 1 GM PO SCH (09:43)
[2017-07-22] MEDS: Metoprolol Succinate 25 mg XL Tab PO SCH (09:50)
--- NOTE | 2017-07-22 10:46 | CP.PCM.PN ---
Subjective - Date & Time of Evaluation Date of Evaluation: 07/22/17 Time of Evaluation: 09:30 - Subjective Subjective: Patient was seen and examined with medical sales associate. Patient is still c/o leg sided weakness, denies headache or dizzines. There is no chest pain or palpitation. Objective - Vital Signs/Intake and Output Vital Signs (last 24 hours): Temp Pulse Resp BP Pulse Ox 98.3 F 95 H 19 141/62 93 L 07/22/17 06:00 07/22/17 09:50 07/22/17 06:00 07/22/17 09:50 07/22/17 06:00 Intake and Output: 07/22/17 07/22/17 06:59 18:59 Intake Total 720 Output Total 0 Balance 720 - Medications Medications: Current Medications Albuterol/Ipratropium (Duoneb 3 Mg/0.5 Mg (3 Ml) Ud) 3 ml IH Q2H PRN PRN Reason: Shortness of Breath Atorvastatin Calcium (Lipitor) 40 mg PO DAILY [facility] Last Admin: 07/22/17 09:37 Dose: 40 mg Dexamethasone (Decadron Inj) 4 mg IVP Q6 [facility] Last Admin: 07/22/17 05:20 Dose: 4 mg Ergocalciferol (Drisdol 50,000 Intl Units Cap) 1 cap PO Q7D [facility] Escitalopram Oxalate (Lexapro) 10 mg PO DAILY [facility] Last Admin: 07/22/17 09:37 Dose: 10 mg Gabapentin (Neurontin) 300 mg PO TID [facility] PRN Reason: Protocol Last Admin: 07/22/17 09:37 Dose: 300 mg Home Med (Home Med) 2 unit PO DAILY [facility] Last Admin: 07/22/17 09:43 Dose: 2 unit Ibuprofen (Motrin Tab) 400 mg PO Q6H PRN PRN Reason: Pain, moderate (4-7) Last Admin: 07/21/17 18:07 Dose: 400 mg Insulin Human Lispro (Humalog Med) 0 units SC ACHS [facility] PRN Reason: Protocol Last Admin: 07/22/17 09:40 Dose: 5 units Lisinopril (Zestril) 5 mg PO DAILY [facility] Last Admin: 07/22/17 09:44 Dose: 5 mg Loratadine (Claritin) 10 mg PO DAILY [facility] PRN Reason: ALLERGY SYMPTOMS Metoprolol Succinate (Toprol Xl) 25 mg PO BRK [facility] Last Admin: 07/22/17 09:50 Dose: 25 mg Ondansetron HCl (Zofran Tab) 4 mg PO Q6 PRN PRN Reason: Nausea/Vomiting Pantoprazole Sodium (Protonix Ec Tab) 40 mg PO 0600,1600 [facility] Last Admin: 07/22/17 05:20 Dose: 40 mg - Labs Labs: 07/22/17 07:00 07/22/17 07:00 PT 10.3 Seconds (9.9-11.8) 07/19/17 19:00 INR 0.95 (0.93-1.08) 07/19/17 19:00 APTT 27.0 Seconds (23.7-30.8) 07/19/17 19:00 - Constitutional Appears: Non-toxic, No Acute Distress - Head Exam Head Exam: NORMOCEPHALIC - Eye Exam Pupil Exam: NORMAL ACCOMODATION - Respiratory Exam Respiratory Exam: Clear to Ausculation Bilateral - Cardiovascular Exam Cardiovascular Exam: REGULAR RHYTHM Additional comments: no rub or gallop - GI/Abdominal Exam GI & Abdominal Exam: Soft, Normal Bowel Sounds - Extremities Exam Additional comments: no edema, - Neurological Exam Neurological Exam: Alert, Awake, CN II-XII Intact, Oriented x3 Neuro motor strength exam: Left Upper Extremity: 3, Right Upper Extremity: 5, Left Lower Extremity: 3, Right Lower Extremity: 5 Additional comments: Plantar are non specific. Assessment and Plan - Assessment and Plan (Free Text) Plan: 67 F with PMH of uterine cancer s/p hysterectomy, chemotherapy, DM-2, HTN, dyslipidemia who presented s/p fall and found to have left sided weakness. MRI brain showed cystic mass which can be primary brain tumor vs metastatic. 1. 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 Monitor Neuro check Seizure precaution on IV Decadron as Per Neurology. Plan for surgery next week. Neurology, neuro surgery and Oncology evaluation is appreciated. 2.HTN Stable, on Lisinopril and Metoprolol will monitor blood pressure and adjust medications. 3. DM Blood sugars are running high, oral hypoglycemic are on hold, patient is on Decadron Continue sliding scale coverage will add low dose of Levemir will monitor blood sugars and adjust medications. 4.DVT Prophylaxis with SCD Management plan was discussed in detail with patient Education was provided.
--- NOTE | 2017-07-22 11:11 | EEG ---
DATE: INTRODUCTION: This is a digitally recorded EEG monitoring using standard EEG montages. BACKGROUND RHYTHM: The EEG shows a background activity of 9 Hertz alpha activity in parieto-occipital region. The EEG activity is bilaterally symmetrical and synchronous. There is attenuation of the background activity on eye opening. No sleep recording was noted. ABNORMAL POTENTIALS: No spike, sharp waves or focal slowing was seen. Photic stimulation and hyperventilation. Photic stimulation did not reveal any abnormality, hyperventilation was not performed. IMPRESSION: Normal EEG. No epileptiform activity seen in this EEG recording. Rachell Lambert MD
[2017-07-22 12:51] LABS: FOLATE > 20.0 ng/mL
--- NOTE | 2017-07-22 13:14 | PN ---
NEUROLOGY PROGRESS NOTE DATE: SUBJECTIVE: The patient is lying in the bed, in no acute distress. Denies having any headache or dizziness. Her left-sided weakness is better. PHYSICAL EXAMINATION: VITAL SIGNS: Blood pressure is 141/62, heart rate is 95 per minute, breathing at the rate of 16 per minute, and temperature is 98.3 degrees Fahrenheit. HEENT: Head is normocephalic and atraumatic. NECK: Supple. There are no carotid bruits. LUNGS: Clear. CARDIOVASCULAR: S1 and S2 audible. No murmurs. ABDOMEN: Soft and nontender with bowel sounds. NEUROLOGIC: Mental status; the patient is awake, alert, and oriented to place, person, and years. Speech is fluent. Naming and repetition is normal. Memory and cognition are intact. Cranial nerve examination: Pupils are 3 mm, bilaterally reactive to light. Visual carl are full. Extraocular movements are intact. There is no facial asymmetry. Motor Examination: Tone is normal. Power on the right side is 5/5 and power on the left side is 4/5. Plantars downgoing bilaterally. LABORATORY DATA: Reviewed. Electroencephalogram is normal. IMPRESSION: Right parietal mass, possible metastasis versus primary neoplasm. RECOMMENDATIONS: 1. The patient was evaluated by oncology yesterday and recommended some tumor markers. 2. We will decrease the dose of Decadron to 4 mg every 8 hours. 3. Please continue other treatment and supportive care as well as physical therapy. Thank you for the opportunity to participate in the care of this patient. Rachell Lambert MD
[2017-07-22] MEDS ORDERED: Iohexol 240 (50 ml) ONE (15:00)
[2017-07-22] MEDS ORDERED: Iohexol 350 MG/100 ML VIAL ONE (15:00)
--- NOTE | 2017-07-22 19:14 | CT ---
EXAM: CT Chest With Intravenous Contrast CLINICAL HISTORY: 67 years old, female; Condition or disease; Other: Brain mass, HX of uterine cancer ? new primary TECHNIQUE: Axial computed tomography images of the chest with intravenous contrast. All CT scans at this facility use one or more dose reduction techniques, viz.: automated exposure control; ma/kV adjustment per patient size (including targeted exams where dose is matched to indication; i.e. head); or iterative reconstruction technique. Coronal and sagittal reformatted images were created and reviewed. CONTRAST: 100 mL of administered intravenously. COMPARISON: CT - ANGIO CHEST PE PROTOCOL 02/14/2016 8:28:43 AM FINDINGS: Artifacts: Motion artifact degrades image quality. Tubes and catheters: There is a Port-A-Cath in the left chest wall. Catheter tip projects in the proximal superior vena cava. Lungs and pleural spaces: Trachea and main bronchi are patent. There is patchy right apical pleural thickening, unchanged. There is a calcified right upper lobe granuloma, unchanged. There is left apical pleural thickening slightly greater than on the prior study. There is subsegmental atelectasis in both lower lobes left greater than right. There is minimal patchy airspace disease in the right costophrenic sulcus. There are no effusions. Heart: The heart is enlarged. There are coronary calcifications. Aorta and main pulmonary artery are normal in caliber.There are vascular calcifications. Mediastinum: The esophagus is unremarkable. There is a small hiatal hernia. There are no pathologically enlarged mediastinal or hilar nodes. Thyroid: Thyroid is unremarkable Bones/joints: There are degenerative changes in the osseus structures. Soft tissues: unremarkable Upper abdomen: There is elevation of the right diaphragm Refer to following report for abdominal findings IMPRESSION: Subsegmental atelectasis/scarring at both lung bases; right upper lobe granuloma; cardiomegaly and atherosclerotic disease No CT findings to suggest metastatic or new malignant disease EXAM: CT Abdomen and Pelvis With Intravenous Contrast EXAM DATE/TIME: 07/21/2017 8:10 PM CLINICAL HISTORY: 67 years old, female; Condition or disease; Other: Brain mass, HX of uterine cancer ? new primary TECHNIQUE: Axial computed tomography images of the abdomen and pelvis with intravenous contrast. All CT scans at this facility use one or more dose reduction techniques, viz.: automated exposure control; ma/kV adjustment per patient size (including targeted exams where dose is matched to indication; i.e. head); or iterative reconstruction technique. Oral contrast was administered. Coronal and sagittal reformatted images were created and reviewed. CONTRAST: 100 mL of [id number] administered intravenously. COMPARISON: There are are no prior studies for comparison. FINDINGS: Artifacts: Motion artifact degrades image quality. Lower thorax: Refer to a report for chest findings There is elevation of right diaphragm. ABDOMEN: Liver: There is fatty infiltration of the liver. Gallbladder and bile ducts: Gallbladder is absent. Common duct is unremarkable. Pancreas: Pancreas is mildly atrophic. Spleen: unremarkable Adrenals: unremarkable Kidneys and ureters: There is a left renal Kidneys and ureters are otherwise unremarkable. Stomach and bowel: Stomach is almost completely empty. Rotation is normal. Small bowel is mildly distended. There is contrast fluid and air in the small bowel. Small bowel extends into a nonobstructing left lower quadrant spigelian hernia. Appendix and terminal ileum are unremarkable. Colon is incompletely distended which limits evaluation. Appendix: See above. PELVIS: Bladder: Urinary bladder is unremarkable. Reproductive: Uterus is absent. There are no adnexal masses. ABDOMEN and PELVIS: Intraperitoneal space: There is no free air or free fluid. Bones/joints: There are degenerative changes in the osseus structures. Soft tissues: There is a left lower quadrant spigelian hernia. Vasculature: There are vascular calcifications. Lymph nodes: There is no pathologic adenopathy. IMPRESSION: Fatty liver, no acute solid visceral abnormality, no bowel obstruction; nonobstructing left lower quadrant spigelian hernia containing small bowel; prior hysterectomy Additional findings as described above.
[2017-07-22] MEDS ORDERED: Insulin Detemir 100 units/ml Vial (Levemir) SC SCH (22:00)
[2017-07-23] MEDS: Dexamethasone 4 mg/1 ml IVP SCH ×3 (05:42→22:57)
[2017-07-23] MEDS: Pantoprazole 40 mg EC Tab PO SCH (05:42)
[2017-07-23 06:00] LABS: HEMATOCRIT 28.2 % (36.0-48.0); MEAN CELL VOLUME 89.2 fl (80.0-105.0); MEAN CORPUSCULAR HEMOGLOBIN 29.4 pg (25.0-35.0); MEAN PLATELET VOLUME 8.8 fl (7.0-11.0); RED CELL DISTRIBUTION WIDTH 12.7 % (11.5-14.5); WHITE BLOOD COUNT 7.9 10^3/ul (4.5-11.0)
[2017-07-23 06:21] LABS: ALB/GLOB RATIO 1.3 (1.1-1.8); ALKALINE PHOSPHATASE 79 U/L (38-126); ALT/SGPT 38 U/L (7-56); AST/SGOT 31 U/L (14-36); BILIRUBIN,TOTAL 0.6 mg/dL (0.2-1.3); BLOOD UREA NITROGEN 30 mg/dL (7-21); CALCIUM 9.2 mg/dL (8.4-10.5); CARBON DIOXIDE 30 mmol/L (21-33); CHLORIDE 102 mmol/L (98-107); GFR AFRICAN-AMERICAN > 60; GLUCOSE,RANDOM 223 mg/dL (70-110); POTASSIUM 4.3 mmol/L (3.6-5.0); SODIUM 140 mmol/L (132-148); TOTAL PROTEIN 6.8 g/dL (5.8-8.3)
[2017-07-23] MEDS: Insulin Lispro (humaLOG) MEDIUM Coverage SC SCH ×4 (08:43→23:00)
[2017-07-23] MEDS: Metoprolol Succinate 25 mg XL Tab PO SCH (08:43)
[2017-07-23] MEDS: Alum-Mag Hydrox-Simethicone Susp (30 mL) PO SCH ×3 (08:43→22:56)
[2017-07-23] MEDS: ICOSAPENT ETHYL 1 GM PO SCH (09:40)
--- NOTE | 2017-07-23 11:07 | CP.PCM.PN ---
<Mode Loera - Last Filed: 07/23/17 11:50> Subjective - Date & Time of Evaluation Date of Evaluation: 07/23/17 Time of Evaluation: 09:03 - Subjective Subjective: Patient was seen and examined at bedside. The patient reports a slight improvement in left sided weakness. Patient is also reporting a phlegm production. Patient denies any chest pain, shortness of breath, nausea, vomiting, lightheadedness, dizziness, changes in vision, bowel incontinence, urinary incontinence or any other complaints. Objective - Vital Signs/Intake and Output Vital Signs (last 24 hours): Temp Pulse Resp BP Pulse Ox 98.9 F 80 19 142/69 95 07/23/17 06:00 07/23/17 09:39 07/23/17 06:00 07/23/17 09:39 07/23/17 06:00 Intake and Output: 07/23/17 07/23/17 06:59 18:59 Intake Total 660 Output Total 1600 Balance -940 - Medications Medications: Current Medications Al Hydrox/Mg Hydrox/Simethicone (Maalox Plus 30 Ml) 30 ml PO Q8 [facility] Last Admin: 07/23/17 08:43 Dose: 30 ml Albuterol/Ipratropium (Duoneb 3 Mg/0.5 Mg (3 Ml) Ud) 3 ml IH Q2H PRN PRN Reason: Shortness of Breath Atorvastatin Calcium (Lipitor) 40 mg PO DAILY [facility] Last Admin: 07/23/17 09:39 Dose: 40 mg Dexamethasone (Decadron Inj) 4 mg IVP Q8 [facility] Last Admin: 07/23/17 05:42 Dose: 4 mg Ergocalciferol (Drisdol 50,000 Intl Units Cap) 1 cap PO Q7D [facility] Escitalopram Oxalate (Lexapro) 10 mg PO DAILY [facility] Last Admin: 07/23/17 09:39 Dose: 10 mg Gabapentin (Neurontin) 300 mg PO TID [facility] PRN Reason: Protocol Last Admin: 07/23/17 09:39 Dose: 300 mg Home Med (Home Med) 2 unit PO DAILY [facility] Last Admin: 07/23/17 09:40 Dose: 2 unit Ibuprofen (Motrin Tab) 400 mg PO Q6H PRN PRN Reason: Pain, moderate (4-7) Last Admin: 07/23/17 10:58 Dose: 400 mg Insulin Detemir (Levemir) 10 unit SC HS [facility] Insulin Human Lispro (Humalog Med) 0 units SC ACHS [facility] PRN Reason: Protocol Last Admin: 07/23/17 08:43 Dose: 3 units Lisinopril (Zestril) 5 mg PO DAILY [facility] Last Admin: 07/23/17 09:39 Dose: 5 mg Loratadine (Claritin) 10 mg PO DAILY PRN PRN Reason: ALLERGY SYMPTOMS Metoprolol Succinate (Toprol Xl) 25 mg PO BRK [facility] Last Admin: 07/23/17 08:43 Dose: 25 mg Ondansetron HCl (Zofran Tab) 4 mg PO Q6 PRN PRN Reason: Nausea/Vomiting Pantoprazole Sodium (Protonix Ec Tab) 40 mg PO 0600,1600 [facility] Last Admin: 07/23/17 05:42 Dose: 40 mg - Labs Labs: 07/23/17 05:46 07/23/17 05:46 PT 10.3 Seconds (9.9-11.8) 07/19/17 19:00 INR 0.95 (0.93-1.08) 07/19/17 19:00 APTT 27.0 Seconds (23.7-30.8) 07/19/17 19:00 - Head Exam Head Exam: ATRAUMATIC, NORMAL INSPECTION, NORMOCEPHALIC - Eye Exam Eye Exam: EOMI, Normal appearance, PERRL. absent: Periorbital tenderness Pupil Exam: NORMAL ACCOMODATION, PERRL. absent: Irregular, Unequal - ENT Exam ENT Exam: Mucous Membranes Moist - Neck Exam Neck Exam: Full ROM. absent: Thyromegaly - Respiratory Exam Respiratory Exam: Clear to Ausculation Bilateral, NORMAL BREATHING PATTERN. absent: Chest Wall Tenderness, Respiratory Distress - Cardiovascular Exam Cardiovascular Exam: REGULAR RHYTHM, RRR, +S1, +S2. absent: Gallop, Rubs - GI/Abdominal Exam GI & Abdominal Exam: Soft, Normal Bowel Sounds. absent: Guarding, Rigid, Tenderness - Extremities Exam Additional comments: Left sided muscle strength 4/5. Right side muscle strength 5/5 appreciated. - Back Exam Back Exam: NORMAL INSPECTION. absent: paraspinal tenderness - Neurological Exam Neurological Exam: Alert, Awake, CN II-XII Intact, Oriented x3 - Psychiatric Exam Psychiatric exam: Normal Affect, Normal Mood - Skin Skin Exam: Dry, Intact, Normal Color Assessment and Plan - Assessment and Plan (Free Text) Assessment: 67 F with PMH of uterine cancer s/p hysterectomy, chemotherapy, DM-2, HTN, dyslipidemia who presented s/p fall and found to have left sided weakness. MRI brain showed cystic mass which can be primary brain tumor vs metastatic. Plan: 1. 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 -Continue Neuro check -Continue seizure precautions -Continue IV Decadron as Per Neurology. -Plan for surgery next week( Proposed date 07/26). Neurology, Neuro-surgery and Oncology evaluation is appreciated. 2.HTN -BP 142/69 (down from 151/79) -Continue Lisinopril and Metoprolol -Will monitor blood pressure and adjust medications as needed. 3. DM -Blood sugars are trending down since yesterday (Currently Blood glucose-222) -Ordered Insulin Detemir 10 Units SC HS. Will continue to monitor blood glucose levels. -Patient is on Decadron -Continue sliding scale coverage -Will reassess blood glucose medications in the morning and modify accordingly. 4.DVT Prophylaxis -continue SCD's <Phyllis Jonas - Last Filed: 07/24/17 14:44> Objective - Vital Signs/Intake and Output Vital Signs (last 24 hours): Temp Pulse Resp BP Pulse Ox 97.5 F L 115 H 20 128/92 H 95 07/24/17 06:00 07/24/17 08:59 07/24/17 06:00 07/24/17 08:59 07/24/17 06:00 Intake and Output: 07/24/17 07/24/17 06:59 18:59 Intake Total 300 Output Total 650 Balance -350 - Medications Medications: Current Medications Al Hydrox/Mg Hydrox/Simethicone (Maalox Plus 30 Ml) 30 ml PO Q8 [facility] Last Admin: 07/24/17 13:35 Dose: 30 ml Albuterol/Ipratropium (Duoneb 3 Mg/0.5 Mg (3 Ml) Ud) 3 ml IH Q2H PRN PRN Reason: Shortness of Breath Atorvastatin Calcium (Lipitor) 40 mg PO DAILY [facility] Last Admin: 07/24/17 09:00 Dose: 40 mg Dexamethasone (Decadron Inj) 4 mg IVP Q8 [facility] Last Admin: 07/24/17 13:35 Dose: 4 mg Ergocalciferol (Drisdol 50,000 Intl Units Cap) 1 cap PO Q7D [facility] Escitalopram Oxalate (Lexapro) 10 mg PO DAILY [facility] Last Admin: 07/24/17 09:00 Dose: 10 mg Gabapentin (Neurontin) 300 mg PO TID [facility] PRN Reason: Protocol Last Admin: 07/24/17 10:20 Dose: 300 mg Home Med (Home Med) 2 unit PO DAILY [facility] Last Admin: 07/24/17 09:04 Dose: 2 unit Ibuprofen (Motrin Tab) 400 mg PO Q6H PRN PRN Reason: Pain, moderate (4-7) Last Admin: 07/24/17 09:01 Dose: 400 mg Insulin Detemir (Levemir) 10 unit SC HS [facility] Last Admin: 07/23/17 23:00 Dose: 10 unit Insulin Human Lispro (Humalog Med) 0 units SC ACHS [facility] PRN Reason: Protocol Last Admin: 07/24/17 12:53 Dose: 5 units Lactulose (Enulose) 10 gm PO Q6 [facility] Last Admin: 07/24/17 12:53 Dose: 10 gm Lisinopril (Zestril) 5 mg PO DAILY [facility] Last Admin: 07/24/17 08:59 Dose: 5 mg Loratadine (Claritin) 10 mg PO DAILY PRN PRN Reason: ALLERGY SYMPTOMS Metoprolol Succinate (Toprol Xl) 25 mg PO BRK [facility] Last Admin: 07/24/17 08:54 Dose: 25 mg Ondansetron HCl (Zofran Tab) 4 mg PO Q6 PRN PRN Reason: Nausea/Vomiting Pantoprazole Sodium (Protonix Inj) 40 mg IVP Q12 [facility] Last Admin: 07/24/17 09:03 Dose: 40 mg Polyethylene Glycol (Miralax) 17 gm PO DAILY [facility] Last Admin: 07/24/17 09:06 Dose: 17 gm - Labs Labs: 07/24/17 06:00 07/24/17 06:00 PT 10.3 Seconds (9.9-11.8) 07/19/17 19:00 INR 0.95 (0.93-1.08) 07/19/17 19:00 APTT 27.0 Seconds (23.7-30.8) 07/19/17 19:00 Attending/Attestation - Attestation I have personally seen and examined this patient.: Yes I have fully participated in the care of the patient.: Yes I have reviewed all pertinent clinical information, including history, physical exam and plan: Yes Notes (Text): 07/24/17 14:40 Attending note; Patient seen and examined with resident. Patient is a 67 year old female with history of uterine cancer s/p hysterectomy , chemotherapy, DM-2, HTN, dyslipidemia who presented s/p fall and found to have left sided weakness. MRI brain showed cystic mass which can be primary brain tumor vs metastatic. Neurologist and neurosurgeon evaluation appreciated. Continue IV decadron. EEG is normal. Plan for surgery next week. Case discussed with oncologist Dr. Chávez in detail. Anemia; stable. Monitor closely. We will do type and screen for surgery. Hypertension/diabetes; continue Levemir. Blood pressure is Acceptable. Abdominal discomfort; secondary to constipation. Started on Colace. Max citrate one dose given. Possible history of GERD; continue IV Protonix since the patient is on IV Decadron. GI evaluation appreciated. Patient's family is aware of the plan. Upon discharge patient will follow up with [facility]. Harinder Hercules. 07/24/17 14:44
[2017-07-23] MEDS ORDERED: Magnesium Citrate Oral SOL (300 ml) PO ONE (13:55)
[2017-07-23] MEDS: POLYETHYLENE GLYCOL 3350 17 GM/Dose PACKET PO SCH (15:01)
--- NOTE | 2017-07-23 15:19 | PN ---
DATE: 07/23/2017 SUBJECTIVE: The patient is lying in the bed in no acute distress. Denies having any headache or dizziness. Continues to have weakness on the left side. PHYSICAL EXAMINATION VITAL SIGNS: Her blood pressure is 142/69, heart rate is 80 per minute, breathing at the rate of 16 minute, temperature 98.9 degrees Fahrenheit. HEENT: Head is normocephalic and atraumatic. NECK: Supple. There are no carotid bruits. LUNGS: Clear. CARDIOVASCULAR: S1 and S2 audible. No murmurs. ABDOMEN: Soft and nontender. Bowel sounds are present. NEUROLOGIC: Mental Status: Patient is awake, alert, and oriented to time, place, and person. Speech is fluent. Naming and repetition is normal. Memory and cognition are intact. Cranial nerve examination; pupils are 3 mm bilaterally reactive to light. Visual carl are full. Extraocular movements are intact. There is no facial asymmetry. Motor examination: Tone is normal. There is left-sided hemiparesis. Power in the upper extremity is 3-4/5; power in the left lower extremity is 2-3/5. Plantar's downgoing bilaterally. IMPRESSION: Right parietal mass, possible metastasis versus primary neoplasm. RECOMMENDATIONS: 1. The patient to be continued on Decadron 4 mg every 8 hours. 2. The patient is primarily on liquid diet because of abdominal pain. The patient has been on Protonix and Maalox. They would consider obtain gastroenterology evaluation. 3. The patient is being followed up by oncology. 4. The patient to have physical therapy. 5. Please continue supportive care and the treatment. Thank you for the opportunity to participate in the care of this patient. Rachell Lambert MD
--- NOTE | 2017-07-23 21:14 | CP.PCM.PN ---
Subjective - Date & Time of Evaluation Date of Evaluation: 07/23/17 Time of Evaluation: 17:00 - Subjective Subjective: Left arm weakness improved Objective - Vital Signs/Intake and Output Vital Signs (last 24 hours): Temp Pulse Resp BP Pulse Ox 98.3 F 78 18 152/86 H 95 07/23/17 18:00 07/23/17 18:00 07/23/17 18:00 07/23/17 18:00 07/23/17 06:00 - Medications Medications: Current Medications Al Hydrox/Mg Hydrox/Simethicone (Maalox Plus 30 Ml) 30 ml PO Q8 [facility] Last Admin: 07/23/17 15:00 Dose: 30 ml Albuterol/Ipratropium (Duoneb 3 Mg/0.5 Mg (3 Ml) Ud) 3 ml IH Q2H PRN PRN Reason: Shortness of Breath Atorvastatin Calcium (Lipitor) 40 mg PO DAILY [facility] Last Admin: 07/23/17 09:39 Dose: 40 mg Dexamethasone (Decadron Inj) 4 mg IVP Q8 [facility] Last Admin: 07/23/17 15:00 Dose: 4 mg Ergocalciferol (Drisdol 50,000 Intl Units Cap) 1 cap PO Q7D [facility] Escitalopram Oxalate (Lexapro) 10 mg PO DAILY [facility] Last Admin: 07/23/17 09:39 Dose: 10 mg Gabapentin (Neurontin) 300 mg PO TID [facility] PRN Reason: Protocol Last Admin: 07/23/17 18:34 Dose: 300 mg Home Med (Home Med) 2 unit PO DAILY [facility] Last Admin: 07/23/17 09:40 Dose: 2 unit Ibuprofen (Motrin Tab) 400 mg PO Q6H PRN PRN Reason: Pain, moderate (4-7) Last Admin: 07/23/17 10:58 Dose: 400 mg Insulin Detemir (Levemir) 10 unit SC HS [facility] Insulin Human Lispro (Humalog Med) 0 units SC ACHS [facility] PRN Reason: Protocol Last Admin: 07/23/17 17:36 Dose: 3 units Lactulose (Enulose) 10 gm PO Q6 [facility] Last Admin: 07/23/17 18:34 Dose: 10 gm Lisinopril (Zestril) 5 mg PO DAILY [facility] Last Admin: 07/23/17 09:39 Dose: 5 mg Loratadine (Claritin) 10 mg PO DAILY PRN PRN Reason: ALLERGY SYMPTOMS Metoprolol Succinate (Toprol Xl) 25 mg PO BRK [facility] Last Admin: 07/23/17 08:43 Dose: 25 mg Ondansetron HCl (Zofran Tab) 4 mg PO Q6 PRN PRN Reason: Nausea/Vomiting Pantoprazole Sodium (Protonix Inj) 40 mg IVP Q12 [facility] Polyethylene Glycol (Miralax) 17 gm PO DAILY [facility] Last Admin: 07/23/17 15:01 Dose: 17 gm - Labs Labs: 07/23/17 05:46 07/23/17 05:46 PT 10.3 Seconds (9.9-11.8) 07/19/17 19:00 INR 0.95 (0.93-1.08) 07/19/17 19:00 APTT 27.0 Seconds (23.7-30.8) 07/19/17 19:00 - Head Exam Head Exam: ATRAUMATIC - Eye Exam Eye Exam: Normal appearance - ENT Exam ENT Exam: Mucous Membranes Dry - Respiratory Exam Respiratory Exam: NORMAL BREATHING PATTERN - Cardiovascular Exam Cardiovascular Exam: +S1, +S2 - GI/Abdominal Exam GI & Abdominal Exam: Normal Bowel Sounds - Extremities Exam Extremities Exam: Normal Inspection Assessment and Plan (1) Brain mass Assessment & Plan: CT C/A/P negative for primary or metastatic disease neurosurgical evaluation for resection ?primary brain malignancy Status: Acute (2) Anemia Assessment & Plan: anemia of chronic disease Status: Acute
[2017-07-23] MEDS: Insulin Detemir 100 units/ml Vial (Levemir) SC SCH (23:00)
--- NOTE | 2017-07-23 23:04 | CON ---
DATE: 07/23/2017 REASON FOR CONSULTATION: Constipation. HISTORY OF PRESENT ILLNESS: This 67-year-old patient with past medical history of uterine carcinoma status post radiation, chemo, and total hysterectomy noticed some left-sided weakness with history of fall noticed it about nearly more than two weeks prior to the admission. She was in the hospital. Upon admission, she was found to have cystic mass in the brain. Primary versus metastatic tumor. The patient is planned to have surgery. The patient mentioned no bowel movements since Monday. Consult was requested for that. No complaints of any abdominal pain. The patient did complain of some heartburn, occasional some difficulty in swallowing food going down. Presently on a liquid diet. The patient is also on steroid IV Decadron as per the neurology. No history of any bleeding per rectum. The patient is also found to be anemic. OTHER PAST MEDICAL HISTORY: Include hypertension, diabetes mellitus. The patient could not remember about the previous endoscopy or colonoscopy evaluation. FAMILY HISTORY: Mother had a breast cancer. SOCIAL HISTORY: Denies smoking. No alcohol. ALLERGIES: ALLERGIC TO PENICILLIN. REVIEW OF SYSTEMS: Positive as above. Other systems reviewed and negative. PHYSICAL EXAMINATION GENERAL: The patient is lying on the bed, not in acute distress. Obese lady. VITAL SIGNS: Temperature 98.9, blood pressure 151/79, pulse 68, respirations 19, O2 saturation 95%. HEENT: Atraumatic. Anicteric. NECK: Supple. HEART: S1 and S2, heard. LUNGS: Bilateral air entry present. ABDOMEN: Soft. There is a ventral hernia present. EXTREMITIES: No cyanosis, no clubbing. LABORATORY DATA: Hemoglobin 9.3, hematocrit 28.8, WBC 7.9, platelets 250. Chemistry is essentially unremarkable except blood glucose is 223. The CT scan of the abdomen and pelvis done on 07/21/2017, was reviewed, had a fatty liver, and a large ventral hernia. No obvious fecal impaction noticed. There are small to moderate amount of stool present in the colon. There is no obvious mass lesion otherwise noticed. IMPRESSION: 1. This 67-year-old patient with history of uterine cancer status post chemoradiation status post total hysterectomy, admitted with left-sided weakness and found to have a large brain mass. Primary versus secondary on IV Decadron. The patient complains of constipation. The CT scan reviewed has a moderate amount of stool present, no obvious fecal impaction or obstruction. 2. History of intermittent episodes of dysphagia, heartburn, and the patient is on high dose steroid and on clear liquid diet. 3. History of normocytic anemia. Details of the previous GI work was unclear. We will discuss with oncologist and get more details. 4. Brain mass. Planned to have the surgery done, on high dose steroid. 5. Other comorbidities include hypertension and dyslipidemia. RECOMMENDATIONS: 1. We will slowly advance the diet to puree diet. 2. We will request for the high dose PPI as the patient is already on steroid. 3. The patient has already received one dose of milk of magnesia. We will followup on that before ordering further laxative. 4. We will continue to closely follow up his care and suggest further management. 5. Close follow up of the hemoglobin, hematocrit, GI prophylaxis especially the patient is on steroid and anemia. We will add probably even Carafate in addition to the PPI for GI prophylaxis. Thank you very much for allowing us to participate in the care of the patient. We will continue closely follow up her care and suggest further management based on the clinical course. Irma Coto MD
[2017-07-24] MEDS: Insulin Lispro (humaLOG) MEDIUM Coverage SC SCH ×5 (00:09→21:49)
[2017-07-24] MEDS: Dexamethasone 4 mg/1 ml IVP SCH ×3 (05:46→21:50)
[2017-07-24] MEDS: Alum-Mag Hydrox-Simethicone Susp (30 mL) PO SCH ×3 (05:47→21:50)
[2017-07-24 06:27] LABS: HEMATOCRIT 29.3 % (36.0-48.0); MEAN CELL VOLUME 89.1 fl (80.0-105.0); MEAN CORPUSCULAR HEMOGLOBIN 29.2 pg (25.0-35.0); MEAN CORPUSCULAR HGB CONC 32.8 g/dl (31.0-37.0); MEAN PLATELET VOLUME 9.1 fl (7.0-11.0); RED CELL DISTRIBUTION WIDTH 12.7 % (11.5-14.5); WHITE BLOOD COUNT 7.8 10^3/ul (4.5-11.0)
[2017-07-24 06:43] LABS: ALB/GLOB RATIO 1.3 (1.1-1.8); ALKALINE PHOSPHATASE 84 U/L (38-126); ALT/SGPT 41 U/L (7-56); AST/SGOT 25 U/L (14-36); BILIRUBIN,TOTAL 0.5 mg/dL (0.2-1.3); BLOOD UREA NITROGEN 33 mg/dL (7-21); CARBON DIOXIDE 30 mmol/L (21-33); CHLORIDE 100 mmol/L (98-107); GFR AFRICAN-AMERICAN > 60; GLUCOSE,RANDOM 241 mg/dL (70-110); POTASSIUM 4.4 mmol/L (3.6-5.0); SODIUM 139 mmol/L (132-148); TOTAL PROTEIN 6.8 g/dL (5.8-8.3)
[2017-07-24] MEDS: Metoprolol Succinate 25 mg XL Tab PO SCH (08:54)
[2017-07-24] MEDS: ICOSAPENT ETHYL 1 GM PO SCH (09:04)
[2017-07-24] MEDS: POLYETHYLENE GLYCOL 3350 17 GM/Dose PACKET PO SCH (09:06)
--- NOTE | 2017-07-24 09:50 | PN ---
DATE: 07/21/2017 The patient's MRI basically showed one large cystic lesion in the right parietooccipital region. I had a long discussion with the patient's family including her and her son. Basically, delineating the recommendation for craniotomy and excisional biopsy of this lesion. The rationale behind this recommendation, nature of the surgery, potential risk and complication were discussed. They were agreeable, and we will schedule her hopefully in the beginning of the week or as soon as possible. Tyler Lombardi MD
--- NOTE | 2017-07-24 11:37 | CP.PCM.PN ---
Subjective - Date & Time of Evaluation Date of Evaluation: 07/24/17 Time of Evaluation: 11:36 - Subjective Subjective: spoke to pt via professional services manager about surgery st seems to have improved on steroids pt agreed to craniotomy exc of tumor will do it tomorrow Objective - Vital Signs/Intake and Output Vital Signs (last 24 hours): Temp Pulse Resp BP Pulse Ox 97.5 F L 115 H 20 128/92 H 95 07/24/17 06:00 07/24/17 08:59 07/24/17 06:00 07/24/17 08:59 07/24/17 06:00 Intake and Output: 07/24/17 07/24/17 06:59 18:59 Intake Total 300 Output Total 650 Balance -350 - Medications Medications: Current Medications Al Hydrox/Mg Hydrox/Simethicone (Maalox Plus 30 Ml) 30 ml PO Q8 [facility] Last Admin: 07/24/17 05:47 Dose: 30 ml Albuterol/Ipratropium (Duoneb 3 Mg/0.5 Mg (3 Ml) Ud) 3 ml IH Q2H PRN PRN Reason: Shortness of Breath Atorvastatin Calcium (Lipitor) 40 mg PO DAILY [facility] Last Admin: 07/24/17 09:00 Dose: 40 mg Dexamethasone (Decadron Inj) 4 mg IVP Q8 [facility] Last Admin: 07/24/17 05:46 Dose: 4 mg Ergocalciferol (Drisdol 50,000 Intl Units Cap) 1 cap PO Q7D [facility] Escitalopram Oxalate (Lexapro) 10 mg PO DAILY [facility] Last Admin: 07/24/17 09:00 Dose: 10 mg Gabapentin (Neurontin) 300 mg PO TID [facility] PRN Reason: Protocol Last Admin: 07/23/17 18:34 Dose: 300 mg Home Med (Home Med) 2 unit PO DAILY [facility] Last Admin: 07/24/17 09:04 Dose: 2 unit Ibuprofen (Motrin Tab) 400 mg PO Q6H PRN PRN Reason: Pain, moderate (4-7) Last Admin: 07/24/17 09:01 Dose: 400 mg Insulin Detemir (Levemir) 10 unit SC HS [facility] Last Admin: 07/23/17 23:00 Dose: 10 unit Insulin Human Lispro (Humalog Med) 0 units SC ACHS [facility] PRN Reason: Protocol Last Admin: 07/24/17 08:52 Dose: 5 units Lactulose (Enulose) 10 gm PO Q6 [facility] Last Admin: 07/24/17 05:47 Dose: 10 gm Lisinopril (Zestril) 5 mg PO DAILY [facility] Last Admin: 07/24/17 08:59 Dose: 5 mg Loratadine (Claritin) 10 mg PO DAILY PRN PRN Reason: ALLERGY SYMPTOMS Metoprolol Succinate (Toprol Xl) 25 mg PO BRK [facility] Last Admin: 07/24/17 08:54 Dose: 25 mg Ondansetron HCl (Zofran Tab) 4 mg PO Q6 PRN PRN Reason: Nausea/Vomiting Pantoprazole Sodium (Protonix Inj) 40 mg IVP Q12 [facility] Last Admin: 07/24/17 09:03 Dose: 40 mg Polyethylene Glycol (Miralax) 17 gm PO DAILY [facility] Last Admin: 07/24/17 09:06 Dose: 17 gm - Labs Labs: 07/24/17 06:00 07/24/17 06:00 PT 10.3 Seconds (9.9-11.8) 07/19/17 19:00 INR 0.95 (0.93-1.08) 07/19/17 19:00 APTT 27.0 Seconds (23.7-30.8) 07/19/17 19:00
--- NOTE | 2017-07-24 12:28 | CP.PCM.PN ---
<Caitlin Malhotra - Last Filed: 07/24/17 12:27> Subjective - Date & Time of Evaluation Date of Evaluation: 07/24/17 Time of Evaluation: 10:00 - Subjective Subjective: Seen and examined at the bedside earlier, at the bedside. Patient abdominal pain slightly better, no reports of acute overnight events. Patient had bowel movement, stool guaiac negative. Objective - Vital Signs/Intake and Output Vital Signs (last 24 hours): Temp Pulse Resp BP Pulse Ox 97.5 F L 115 H 20 128/92 H 95 07/24/17 06:00 07/24/17 08:59 07/24/17 06:00 07/24/17 08:59 07/24/17 06:00 Intake and Output: 07/24/17 07/24/17 06:59 18:59 Intake Total 300 Output Total 650 Balance -350 - Medications Medications: Current Medications Al Hydrox/Mg Hydrox/Simethicone (Maalox Plus 30 Ml) 30 ml PO Q8 [facility] Last Admin: 07/24/17 05:47 Dose: 30 ml Albuterol/Ipratropium (Duoneb 3 Mg/0.5 Mg (3 Ml) Ud) 3 ml IH Q2H PRN PRN Reason: Shortness of Breath Atorvastatin Calcium (Lipitor) 40 mg PO DAILY [facility] Last Admin: 07/24/17 09:00 Dose: 40 mg Dexamethasone (Decadron Inj) 4 mg IVP Q8 [facility] Last Admin: 07/24/17 05:46 Dose: 4 mg Ergocalciferol (Drisdol 50,000 Intl Units Cap) 1 cap PO Q7D [facility] Escitalopram Oxalate (Lexapro) 10 mg PO DAILY [facility] Last Admin: 07/24/17 09:00 Dose: 10 mg Gabapentin (Neurontin) 300 mg PO TID [facility] PRN Reason: Protocol Last Admin: 07/23/17 18:34 Dose: 300 mg Home Med (Home Med) 2 unit PO DAILY [facility] Last Admin: 07/24/17 09:04 Dose: 2 unit Ibuprofen (Motrin Tab) 400 mg PO Q6H PRN PRN Reason: Pain, moderate (4-7) Last Admin: 07/24/17 09:01 Dose: 400 mg Insulin Detemir (Levemir) 10 unit SC [facility] Last Admin: 07/23/17 23:00 Dose: 10 unit Insulin Human Lispro (Humalog Med) 0 units SC ACHS [facility] PRN Reason: Protocol Last Admin: 07/24/17 08:52 Dose: 5 units Lactulose (Enulose) 10 gm PO Q6 [facility] Last Admin: 07/24/17 05:47 Dose: 10 gm Lisinopril (Zestril) 5 mg PO DAILY [facility] Last Admin: 07/24/17 08:59 Dose: 5 mg Loratadine (Claritin) 10 mg PO DAILY PRN PRN Reason: ALLERGY SYMPTOMS Metoprolol Succinate (Toprol Xl) 25 mg PO BRK [facility] Last Admin: 07/24/17 08:54 Dose: 25 mg Ondansetron HCl (Zofran Tab) 4 mg PO Q6 PRN PRN Reason: Nausea/Vomiting Pantoprazole Sodium (Protonix Inj) 40 mg IVP Q12 [facility] Last Admin: 07/24/17 09:03 Dose: 40 mg Polyethylene Glycol (Miralax) 17 gm PO DAILY [facility] Last Admin: 07/24/17 09:06 Dose: 17 gm - Labs Labs: 07/24/17 06:00 07/24/17 06:00 PT 10.3 Seconds (9.9-11.8) 07/19/17 19:00 INR 0.95 (0.93-1.08) 07/19/17 19:00 APTT 27.0 Seconds (23.7-30.8) 07/19/17 19:00 - Constitutional Appears: No Acute Distress - Head Exam Head Exam: NORMOCEPHALIC - Eye Exam Eye Exam: Normal appearance. absent: Scleral icterus - ENT Exam ENT Exam: Mucous Membranes Moist - Neck Exam Neck Exam: Normal Inspection - Respiratory Exam Respiratory Exam: NORMAL BREATHING PATTERN. absent: Respiratory Distress - Cardiovascular Exam Cardiovascular Exam: +S1, +S2 - GI/Abdominal Exam GI & Abdominal Exam: Soft, Normal Bowel Sounds. absent: Guarding, Tenderness, Rebound - Extremities Exam Extremities Exam: Normal Capillary Refill. absent: Calf Tenderness - Neurological Exam Neurological Exam: Alert, Awake, Oriented x3 - Skin Skin Exam: Dry, Warm Assessment and Plan - Assessment and Plan (Free Text) Assessment: Assessment: 67-year-old female with history of uterine cancer status post chemoradiation and hysterectomy, admitted with left-sided weakness and found to have large brain mass Constipation Intermittent episodes of dysphagia, heartburn Anemia Hypertension Dyslipidemia Plan: Slowly advance diet to pure Continue PPI as patient is on steroids Spoke to patient and at bedside they state that the patient had a endoscopy recently at [facility], request copies of these recent study for review Monitor H&H on bowel regimen of MiraLAX and lactulose, monitor output Seen and discussed with Dr. Coto <Irma Coto V - Last Filed: 07/24/17 22:49> Objective - Vital Signs/Intake and Output Vital Signs (last 24 hours): Temp Pulse Resp BP Pulse Ox 98.2 F 77 18 144/83 95 07/24/17 18:00 07/24/17 18:00 07/24/17 18:00 07/24/17 18:00 07/24/17 06:00 - Medications Medications: Current Medications Al Hydrox/Mg Hydrox/Simethicone (Maalox Plus 30 Ml) 30 ml PO Q8 [facility] Last Admin: 07/24/17 21:50 Dose: 30 ml Albuterol/Ipratropium (Duoneb 3 Mg/0.5 Mg (3 Ml) Ud) 3 ml IH Q2H PRN PRN Reason: Shortness of Breath Atorvastatin Calcium (Lipitor) 40 mg PO DAILY [facility] Last Admin: 07/24/17 09:00 Dose: 40 mg Dexamethasone (Decadron Inj) 4 mg IVP Q8 [facility] Last Admin: 07/24/17 21:50 Dose: 4 mg Ergocalciferol (Drisdol 50,000 Intl Units Cap) 1 cap PO Q7D [facility] Escitalopram Oxalate (Lexapro) 10 mg PO DAILY [facility] Last Admin: 07/24/17 09:00 Dose: 10 mg Gabapentin (Neurontin) 300 mg PO TID [facility] PRN Reason: Protocol Last Admin: 07/24/17 19:02 Dose: 300 mg Home Med (Home Med) 2 unit PO DAILY [facility] Last Admin: 07/24/17 09:04 Dose: 2 unit Ibuprofen (Motrin Tab) 800 mg PO TID PRN PRN Reason: Pain, moderate (4-7) Last Admin: 07/24/17 19:02 Dose: 800 mg Insulin Detemir (Levemir) 10 unit SC HS [facility] Last Admin: 07/24/17 21:49 Dose: 10 unit Insulin Human Lispro (Humalog Med) 0 units SC ACHS [facility] PRN Reason: Protocol Last Admin: 07/24/17 21:49 Dose: 2 units Lisinopril (Zestril) 5 mg PO DAILY [facility] Last Admin: 07/24/17 08:59 Dose: 5 mg Loratadine (Claritin) 10 mg PO DAILY PRN PRN Reason: ALLERGY SYMPTOMS Metoprolol Succinate (Toprol Xl) 25 mg PO BRK [facility] Last Admin: 07/24/17 08:54 Dose: 25 mg Ondansetron HCl (Zofran Tab) 4 mg PO Q6 PRN PRN Reason: Nausea/Vomiting Pantoprazole Sodium (Protonix Inj) 40 mg IVP Q12 [facility] Last Admin: 07/24/17 21:50 Dose: 40 mg Polyethylene Glycol (Miralax) 17 gm PO DAILY [facility] Last Admin: 07/24/17 09:06 Dose: 17 gm - Labs Labs: 07/24/17 06:00 07/24/17 06:00 PT 10.3 Seconds (9.9-11.8) 07/19/17 19:00 INR 0.95 (0.93-1.08) 07/19/17 19:00 APTT 27.0 Seconds (23.7-30.8) 07/19/17 19:00 Attending/Attestation - Attestation I have personally seen and examined this patient.: Yes I have fully participated in the care of the patient.: Yes I have reviewed all pertinent clinical information, including history, physical exam and plan: Yes Notes (Text): This patient was seen and evaluated earlier this is an addendum to the GI progress report dictated by Caitlin Malhotra APN. Patient he is on MiraLAX. History of heartburn and intermittent dysphagia, anemia Patient is on Protonix 40 mg every 12 hourly Discussed with patient's he mentioned that patient did have endoscopy evaluation done in [facility]. We'll continue copy of the report for us to review. Patient is scheduled to have brain surgery on steroid. It's reasonable to continue empiric therapy with high-dose PPI in view of the history of anemia and dyspeptic symptoms 07/24/17 22:46
--- NOTE | 2017-07-24 15:18 | CP.PCM.PN ---
<Everett Alva - Last Filed: 07/24/17 15:27> Subjective - Date & Time of Evaluation Date of Evaluation: 07/24/17 Time of Evaluation: 15:17 - Subjective Subjective: Patient has been seen and examined at bedside. Reports decrease of upper extremity weakness. Denies any headache, changes in vision, SOB, CP, changes in urination, N/V/D or constipation. Objective - Vital Signs/Intake and Output Vital Signs (last 24 hours): Temp Pulse Resp BP Pulse Ox 97.5 F L 115 H 20 128/92 H 95 07/24/17 06:00 07/24/17 08:59 07/24/17 06:00 07/24/17 08:59 07/24/17 06:00 Intake and Output: 07/24/17 07/24/17 06:59 18:59 Intake Total 300 Output Total 650 Balance -350 - Medications Medications: Current Medications Al Hydrox/Mg Hydrox/Simethicone (Maalox Plus 30 Ml) 30 ml PO Q8 [facility] Last Admin: 07/24/17 13:35 Dose: 30 ml Albuterol/Ipratropium (Duoneb 3 Mg/0.5 Mg (3 Ml) Ud) 3 ml IH Q2H PRN PRN Reason: Shortness of Breath Atorvastatin Calcium (Lipitor) 40 mg PO DAILY [facility] Last Admin: 07/24/17 09:00 Dose: 40 mg Dexamethasone (Decadron Inj) 4 mg IVP Q8 [facility] Last Admin: 07/24/17 13:35 Dose: 4 mg Ergocalciferol (Drisdol 50,000 Intl Units Cap) 1 cap PO Q7D [facility] Escitalopram Oxalate (Lexapro) 10 mg PO DAILY [facility] Last Admin: 07/24/17 09:00 Dose: 10 mg Gabapentin (Neurontin) 300 mg PO TID [facility] PRN Reason: Protocol Last Admin: 07/24/17 10:20 Dose: 300 mg Home Med (Home Med) 2 unit PO DAILY [facility] Last Admin: 07/24/17 09:04 Dose: 2 unit Insulin Detemir (Levemir) 10 unit SC HS [facility] Last Admin: 07/23/17 23:00 Dose: 10 unit Insulin Human Lispro (Humalog Med) 0 units SC ACHS [facility] PRN Reason: Protocol Last Admin: 09/11/17 12:53 Dose: 5 units Lactulose (Enulose) 10 gm PO Q6 [facility] Last Admin: 07/24/17 12:53 Dose: 10 gm Lisinopril (Zestril) 5 mg PO DAILY [facility] Last Admin: 07/24/17 08:59 Dose: 5 mg Loratadine (Claritin) 10 mg PO DAILY PRN PRN Reason: ALLERGY SYMPTOMS Metoprolol Succinate (Toprol Xl) 25 mg PO BRK [facility] Last Admin: 07/24/17 08:54 Dose: 25 mg Ondansetron HCl (Zofran Tab) 4 mg PO Q6 PRN PRN Reason: Nausea/Vomiting Pantoprazole Sodium (Protonix Inj) 40 mg IVP Q12 [facility] Last Admin: 07/24/17 09:03 Dose: 40 mg Polyethylene Glycol (Miralax) 17 gm PO DAILY [facility] Last Admin: 07/24/17 09:06 Dose: 17 gm - Labs Labs: 07/24/17 06:00 07/24/17 06:00 PT 10.3 Seconds (9.9-11.8) 07/19/17 19:00 INR 0.95 (0.93-1.08) 07/19/17 19:00 APTT 27.0 Seconds (23.7-30.8) 07/19/17 19:00 - Constitutional Appears: No Acute Distress - Head Exam Head Exam: ATRAUMATIC, NORMAL INSPECTION, NORMOCEPHALIC - Eye Exam Eye Exam: EOMI, Normal appearance - ENT Exam ENT Exam: Mucous Membranes Moist - Respiratory Exam Respiratory Exam: Clear to Ausculation Bilateral, NORMAL BREATHING PATTERN. absent: Rales, Rhonchi, Wheezes - Cardiovascular Exam Cardiovascular Exam: RRR, +S1, +S2 - GI/Abdominal Exam GI & Abdominal Exam: Soft. absent: Tenderness, Organomegaly - Extremities Exam Extremities Exam: absent: Pedal Edema Additional comments: L Upper Extremity 4/5 Avg; Left lower extremity Avg. 3/5 strength - Neurological Exam Neurological Exam: Alert, Awake, Oriented x3 - Psychiatric Exam Psychiatric exam: Normal Affect, Normal Mood Assessment and Plan - Assessment and Plan (Free Text) Assessment: 67 F with PMH of uterine cancer s/p hysterectomy, chemotherapy (stopped due to insurance), DM-2, HTN, dyslipidemia who presented s/p fall and found to have left sided weakness. MRI brain showed cystic mass which can be primary brain tumor vs metastatic. Plan: 1. 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 -Continue Neuro check -Continue seizure precautions -Continue IV Decadron as Per Neurology. -Plan for surgery tomorrow afternoon (craniotomy/excisional biopsy) . Neurology, Neuro-surgery and Oncology evaluation is appreciated. 2.HTN -BP 142/69 (down from 151/79) -Continue Lisinopril and Metoprolol -Will monitor blood pressure and adjust medications as needed. 3. DM - Insulin Detemir 10 Units SC HS. Will continue to monitor blood glucose levels. -Patient is on Decadron -Continue sliding scale coverage -Will reassess blood glucose medications in the morning and modify accordingly. 4.DVT Prophylaxis -continue SCD's Patient seen, examined, and reviewed with Attending Everett Alva PGY-1 <Phyllis Jonas - Last Filed: 07/25/17 07:50> Objective - Vital Signs/Intake and Output Vital Signs (last 24 hours): Temp Pulse Resp BP Pulse Ox 98.0 F 68 19 163/80 H 95 07/25/17 06:00 07/25/17 06:00 07/25/17 06:00 07/25/17 06:00 07/25/17 06:00 Intake and Output: 07/25/17 07/25/17 06:59 18:59 Intake Total 0 Output Total 1000 Balance -1000 - Medications Medications: Current Medications Al Hydrox/Mg Hydrox/Simethicone (Maalox Plus 30 Ml) 30 ml PO Q8 [facility] Last Admin: 07/25/17 06:04 Dose: Not Given Albuterol/Ipratropium (Duoneb 3 Mg/0.5 Mg (3 Ml) Ud) 3 ml IH Q2H PRN PRN Reason: Shortness of Breath Atorvastatin Calcium (Lipitor) 40 mg PO DAILY [facility] Last Admin: 07/24/17 09:00 Dose: 40 mg Dexamethasone (Decadron Inj) 4 mg IVP Q8 [facility] Last Admin: 07/25/17 06:04 Dose: 4 mg Ergocalciferol (Drisdol 50,000 Intl Units Cap) 1 cap PO Q7D [facility] Escitalopram Oxalate (Lexapro) 10 mg PO DAILY [facility] Last Admin: 07/24/17 09:00 Dose: 10 mg Gabapentin (Neurontin) 300 mg PO TID [facility] PRN Reason: Protocol Last Admin: 07/24/17 19:02 Dose: 300 mg Home Med (Home Med) 2 unit PO DAILY [facility] Last Admin: 07/24/17 09:04 Dose: 2 unit Dextrose/Sodium Chloride (Dextrose 5%/0.9% Ns 1000 Ml) 1,000 mls @ 75 mls/hr IV .[id number] [facility] Ibuprofen (Motrin Tab) 800 mg PO TID PRN PRN Reason: Pain, moderate (4-7) Last Admin: 07/24/17 19:02 Dose: 800 mg Insulin Detemir (Levemir) 10 unit SC HS [facility] Last Admin: 07/24/17 21:49 Dose: 10 unit Insulin Human Lispro (Humalog Med) 0 units SC ACHS [facility] PRN Reason: Protocol Last Admin: 07/24/17 21:49 Dose: 2 units Lisinopril (Zestril) 5 mg PO DAILY [facility] Last Admin: 07/24/17 08:59 Dose: 5 mg Loratadine (Claritin) 10 mg PO DAILY PRN PRN Reason: ALLERGY SYMPTOMS Metoprolol Succinate (Toprol Xl) 25 mg PO BRK [facility] Last Admin: 07/24/17 08:54 Dose: 25 mg Ondansetron HCl (Zofran Tab) 4 mg PO Q6 PRN PRN Reason: Nausea/Vomiting Pantoprazole Sodium (Protonix Inj) 40 mg IVP Q12 [facility] Last Admin: 07/24/17 21:50 Dose: 40 mg Polyethylene Glycol (Miralax) 17 gm PO DAILY [facility] Last Admin: 07/24/17 09:06 Dose: 17 gm - Labs Labs: 07/24/17 06:00 07/25/17 06:19 PT 10.3 Seconds (9.9-11.8) 07/19/17 19:00 INR 0.95 (0.93-1.08) 07/19/17 19:00 APTT 27.0 Seconds (23.7-30.8) 07/19/17 19:00 Attending/Attestation - Attestation I have personally seen and examined this patient.: Yes I have fully participated in the care of the patient.: Yes I have reviewed all pertinent clinical information, including history, physical exam and plan: Yes Notes (Text): 07/25/17 07:48 Attending note; Patient seen and examined with resident. Patient is a 67 year old female with history of uterine cancer s/p hysterectomy , chemotherapy, DM-2, HTN, dyslipidemia who presented s/p fall and found to have left sided weakness. MRI brain showed cystic mass which can be primary brain tumor vs metastatic. Neurologist and neurosurgeon evaluation appreciated. Continue IV decadron. EEG is normal. Plan for surgery tomorrow. seen by Dr. Ruffin today. Anemia; stable. Monitor closely. We will do type and crossmatch for surgery. Hypertension/diabetes; continue Levemir. Blood pressure is Acceptable. Abdominal discomfort; secondary to constipation. Started on Colace. Max citrate one dose given. Possible history of GERD; continue IV Protonix since the patient is on IV Decadron. GI evaluation appreciated. Patient's family is aware of the plan. Upon discharge patient will follow up with PMD. Harinder Hercules.
--- NOTE | 2017-07-24 18:37 | PN ---
NEUROLOGY PROGRESS NOTE SUBJECTIVE: The patient is lying on the bed, in no acute distress. Denies having any headache or dizziness. PHYSICAL EXAMINATION VITAL SIGNS: Her blood pressure is 128/92, heart rate is 115 per minute, breathing at the rate of 16 per minute, temperature 97.5 degree Fahrenheit. HEENT: Normocephalic, atraumatic. NECK: Supple. There are no carotid bruits. LUNGS: Clear. CARDIOVASCULAR: S1, S2 audible. No murmurs. ABDOMEN: Soft and nontender. Bowel sounds are present. NEUROLOGICAL EXAMINATION: Mini Mental Status: The patient is awake, alert, and oriented to time, place, and person. Speech is fluent. Memory and cognition are intact. Cranial Nerve Examination: Pupils are 4 mm bilaterally, reactive to light. Visual carl are full. Extraocular movements are intact. There is no facial asymmetry. Motor Examination: Tone is normal. Power in the upper extremities on the right is 5/5, on the left is 4/5. Power in the right lower extremity is 5/5. Power in the left lower extremity is 2 to 3/5. Plantars equivocal bilaterally. Her gait is untestable. IMPRESSION: Brain mass, possible primary neoplasm versus metastasis causing left hemiparesis. RECOMMENDATIONS: 1. The patient to be continued on Decadron. 2. The patient to have reevaluation by neurosurgery for possible resection of her brain mass. 3. The patient to have physical therapy. 4. The patient is being evaluated by a gastroenterology for abdominal pain. 5. Please continue supportive care and other treatment. Thank you for the opportunity to participate in the care of this patient. Rachell Lambert MD
[2017-07-24] MEDS: Insulin Detemir 100 units/ml Vial (Levemir) SC SCH (21:49)
[2017-07-25] MEDS: Dexamethasone 4 mg/1 ml IVP SCH ×3 (06:04→21:20)
[2017-07-25] MEDS: Alum-Mag Hydrox-Simethicone Susp (30 mL) PO SCH ×3 (06:04→21:17)
[2017-07-25 06:44] LABS: ALB/GLOB RATIO 1.3 (1.1-1.8); ALKALINE PHOSPHATASE 83 U/L (38-126); ALT/SGPT 35 U/L (7-56); AST/SGOT 25 U/L (14-36); BILIRUBIN,TOTAL 0.7 mg/dL (0.2-1.3); BLOOD UREA NITROGEN 38 mg/dL (7-21); CALCIUM 9.3 mg/dL (8.4-10.5); CARBON DIOXIDE 30 mmol/L (21-33); CHLORIDE 97 mmol/L (95-110); GFR AFRICAN-AMERICAN > 60; GLUCOSE,RANDOM 241 mg/dL (70-110); POTASSIUM 4.5 mmol/L (3.6-5.0); SODIUM 136 mmol/L (132-148); TOTAL PROTEIN 6.9 g/dL (5.8-8.3)
[2017-07-25] MEDS: Insulin Lispro (humaLOG) MEDIUM Coverage SC SCH ×4 (08:16→22:51)
[2017-07-25] MEDS: Metoprolol Succinate 25 mg XL Tab PO SCH ×2 (08:16→09:47)
[2017-07-25] MEDS: Dextrose 5%/0.9% NS 1,000 ML IV SCH ×3 (08:25→20:44)
[2017-07-25] MEDS ORDERED: Metoprolol 1 mg/ml Inj IVP PRN (09:01)
[2017-07-25] MEDS: ICOSAPENT ETHYL 1 GM PO SCH (09:28)
[2017-07-25] MEDS: POLYETHYLENE GLYCOL 3350 17 GM/Dose PACKET PO SCH (09:29)
[2017-07-25 10:06] LABS: HEMATOCRIT 30.6 % (36.0-48.0); MEAN CELL VOLUME 89.7 fl (80.0-105.0); MEAN CORPUSCULAR HEMOGLOBIN 29.6 pg (25.0-35.0); MEAN PLATELET VOLUME 9.2 fl (7.0-11.0); RED CELL DISTRIBUTION WIDTH 12.4 % (11.5-14.5); WHITE BLOOD COUNT 8.9 10^3/ul (4.5-11.0)
[2017-07-25] MEDS ORDERED: Absorbable Gelatin Sponge Size 100 ONE ×2 (13:37→15:08)
[2017-07-25] MEDS ORDERED: Liquid Adhesive TOP ONE (13:37)
--- NOTE | 2017-07-25 13:37 | CP.PCM.PN ---
<Caitlin Malhotra - Last Filed: 07/25/17 13:35> Subjective - Date & Time of Evaluation Date of Evaluation: 07/25/17 Time of Evaluation: 08:30 - Subjective Subjective: Seen and examined at the bedside earlier today. Chart was reviewed. Patient is nothing by mouth for surgery today. Patient reported to have positive BM, it was liquid brown, no reports of bleeding. Denies nausea, vomiting, or abdominal pain. Objective - Vital Signs/Intake and Output Vital Signs (last 24 hours): Temp Pulse Resp BP Pulse Ox 98.0 F 68 19 163/80 H 95 07/25/17 06:00 07/25/17 06:00 07/25/17 06:00 07/25/17 06:00 07/25/17 06:00 Intake and Output: 07/25/17 07/25/17 06:59 18:59 Intake Total 0 Output Total 1000 Balance -1000 - Medications Medications: Current Medications Al Hydrox/Mg Hydrox/Simethicone (Maalox Plus 30 Ml) 30 ml PO Q8 [facility] Last Admin: 07/25/17 06:04 Dose: Not Given Albuterol/Ipratropium (Duoneb 3 Mg/0.5 Mg (3 Ml) Ud) 3 ml IH Q2H PRN PRN Reason: Shortness of Breath Atorvastatin Calcium (Lipitor) 40 mg PO DAILY [facility] Last Admin: 07/25/17 09:28 Dose: Not Given Dexamethasone (Decadron Inj) 4 mg IVP Q8 [facility] Last Admin: 07/25/17 06:04 Dose: 4 mg Ergocalciferol (Drisdol 50,000 Intl Units Cap) 1 cap PO Q7D [facility] Escitalopram Oxalate (Lexapro) 10 mg PO DAILY [facility] Last Admin: 07/25/17 09:47 Dose: 10 mg Gabapentin (Neurontin) 300 mg PO TID [facility] PRN Reason: Protocol Last Admin: 07/25/17 09:47 Dose: 300 mg Home Med (Home Med) 2 unit PO DAILY [facility] Last Admin: 07/25/17 09:28 Dose: Not Given Dextrose/Sodium Chloride (Dextrose 5%/0.9% Ns 1000 Ml) 1,000 mls @ 75 mls/hr IV .[id number] [facility] Last Admin: 07/25/17 08:25 Dose: 75 mls/hr Ibuprofen (Motrin Tab) 800 mg PO TID PRN PRN Reason: Pain, moderate (4-7) Last Admin: 07/24/17 19:02 Dose: 800 mg Insulin Detemir (Levemir) 10 unit SC HS [facility] Last Admin: 07/24/17 21:49 Dose: 10 unit Insulin Human Lispro (Humalog Med) 0 units SC ACHS [facility] PRN Reason: Protocol Last Admin: 07/25/17 12:00 Dose: Not Given Lisinopril (Zestril) 5 mg PO DAILY [facility] Last Admin: 07/25/17 09:47 Dose: 5 mg Loratadine (Claritin) 10 mg PO DAILY PRN PRN Reason: ALLERGY SYMPTOMS Metoprolol Succinate (Toprol Xl) 25 mg PO BRK [facility] Last Admin: 07/25/17 09:47 Dose: 25 mg Metoprolol Tartrate (Lopressor) 5 mg IVP Q6 PRN PRN Reason: Systolic Blood Pressure Ondansetron HCl (Zofran Tab) 4 mg PO Q6 PRN PRN Reason: Nausea/Vomiting Pantoprazole Sodium (Protonix Inj) 40 mg IVP Q12 [facility] Last Admin: 07/25/17 09:38 Dose: 40 mg Polyethylene Glycol (Miralax) 17 gm PO DAILY [facility] Last Admin: 07/25/17 09:29 Dose: Not Given - Labs Labs: 07/25/17 09:10 07/25/17 06:19 PT 10.3 Seconds (9.9-11.8) 07/19/17 19:00 INR 0.95 (0.93-1.08) 07/19/17 19:00 APTT 27.0 Seconds (23.7-30.8) 07/19/17 19:00 - Constitutional Appears: No Acute Distress - Eye Exam Eye Exam: Normal appearance. absent: Scleral icterus - ENT Exam ENT Exam: Mucous Membranes Moist - Neck Exam Neck Exam: Normal Inspection - Respiratory Exam Respiratory Exam: NORMAL BREATHING PATTERN. absent: Respiratory Distress - Cardiovascular Exam Cardiovascular Exam: +S1, +S2 - GI/Abdominal Exam GI & Abdominal Exam: Soft, Normal Bowel Sounds. absent: Guarding, Tenderness, Organomegaly, Rebound - Neurological Exam Neurological Exam: Alert, Awake, Oriented x3 - Skin Skin Exam: Dry, Warm Assessment and Plan - Assessment and Plan (Free Text) Assessment: Assessment: 67-year-old female with history of uterine cancer status post chemoradiation and hysterectomy, admitted with left-sided weakness and found to have large brain mass Constipation Intermittent episodes of dysphagia, heartburn Anemia Hypertension Dyslipidemia Plan: nothing by mouth at this time for brain surgery today Continue PPI as patient is on steroids Monitor H&H on bowel regimen of MiraLAX and lactulose, monitor output nursing staff yesterday attempted to get [place] reports [place] [facility] they do not have the patient on record, discussed with patient this morning and she insists that she had an endoscopy and colonoscopy at [facility]. Seen and discussed with Dr. Coto <Irma Coto V - Last Filed: 07/25/17 22:08> Objective - Vital Signs/Intake and Output Vital Signs (last 24 hours): Temp Pulse Resp BP Pulse Ox 98.1 F 95 H 21 185/98 H 99 07/25/17 16:45 07/25/17 18:00 07/25/17 16:45 07/25/17 16:45 07/25/17 16:45 Intake and Output: 07/25/17 07/26/17 18:59 06:59 Output Total 850 150 Balance -850 -150 - Medications Medications: Current Medications Al Hydrox/Mg Hydrox/Simethicone (Maalox Plus 30 Ml) 30 ml PO Q8 [facility] Last Admin: 07/25/17 21:17 Dose: 30 ml Albuterol/Ipratropium (Duoneb 3 Mg/0.5 Mg (3 Ml) Ud) 3 ml IH Q2H PRN PRN Reason: Shortness of Breath Atorvastatin Calcium (Lipitor) 40 mg PO DAILY [facility] Last Admin: 07/25/17 09:28 Dose: Not Given Dexamethasone (Decadron Inj) 4 mg IVP Q8 [facility] Last Admin: 07/25/17 21:20 Dose: 4 mg Escitalopram Oxalate (Lexapro) 10 mg PO DAILY [facility] Last Admin: 07/25/17 09:47 Dose: 10 mg Gabapentin (Neurontin) 300 mg PO TID [facility] PRN Reason: Protocol Last Admin: 07/25/17 18:47 Dose: 300 mg Dextrose/Sodium Chloride (Dextrose 5%/0.9% Ns 1000 Ml) 1,000 mls @ 75 mls/hr IV .[id number] [facility] Last Admin: 07/25/17 20:44 Dose: 75 mls/hr Insulin Detemir (Levemir) 10 unit SC HS [facility] Last Admin: 07/24/17 21:49 Dose: 10 unit Insulin Human Lispro (Humalog Med) 0 units SC ACHS [facility] PRN Reason: Protocol Last Admin: 07/25/17 18:50 Dose: 5 units Lisinopril (Zestril) 5 mg PO DAILY [facility] Last Admin: 07/25/17 09:47 Dose: 5 mg Metoclopramide HCl (Reglan) 10 mg IV ONCE PRN PRN Reason: Nausea/Vomiting Stop: 07/25/17 23:59 Metoprolol Succinate (Toprol Xl) 25 mg PO BRK [facility] Last Admin: 07/25/17 09:47 Dose: 25 mg Metoprolol Tartrate (Lopressor) 5 mg IVP Q6 PRN PRN Reason: Systolic Blood Pressure Morphine Sulfate (Morphine) 2 mg IVP Q15M PRN PRN Reason: Pain, moderate (4-7) Ondansetron HCl (Zofran Tab) 4 mg PO Q6 PRN PRN Reason: Nausea/Vomiting Ondansetron HCl (Zofran Inj) 4 mg IVP ONCE PRN PRN Reason: Nausea/Vomiting Stop: 07/25/17 23:59 Pantoprazole Sodium (Protonix Inj) 40 mg IVP Q12 [facility] Last Admin: 07/25/17 21:21 Dose: 40 mg Polyethylene Glycol (Miralax) 17 gm PO DAILY [facility] Last Admin: 07/25/17 09:29 Dose: Not Given - Labs Labs: 07/25/17 09:10 07/25/17 06:19 PT 10.3 Seconds (9.9-11.8) 07/19/17 19:00 INR 0.95 (0.93-1.08) 07/19/17 19:00 APTT 27.0 Seconds (23.7-30.8) 07/19/17 19:00 Attending/Attestation - Attestation I have personally seen and examined this patient.: Yes I have fully participated in the care of the patient.: Yes I have reviewed all pertinent clinical information, including history, physical exam and plan: Yes Notes (Text): this patient was seen and evaluated here earlier. Is an addendum to the G progress report dictated by Caitlin Malhotra APN. Hemoglobin stable on IV Protonix patient is on dexamethasone patient did have loose bowel movements We'll try to get the endo report from [facility] in [place] 07/25/17 22:08
[2017-07-25] MEDS ORDERED: LIDOCAIN/EPI 1-0.001% 10ML INJ SOL IJ ONE ×2 (13:38→13:48)
[2017-07-25] MEDS ORDERED: Thrombin Topical 20,000 Intl Units Spray Kit TOP ONE ×2 (13:38→13:59)
[2017-07-25] MEDS ORDERED: Propofol 10 mg/ml Inj (20 ML) ONE (13:46)
[2017-07-25] MEDS ORDERED: Midazolam 2 MG/2 ML VIAL ONE (13:47)
[2017-07-25] MEDS ORDERED: Etomidate 20 mg/10ml Inj IV ONE (13:49)
[2017-07-25] MEDS ORDERED: Rocuronium 10 mg/ml (5 ml) ONE ×2 (13:49→15:00)
[2017-07-25] MEDS ORDERED: Vancomycin 1 g Inj ONE (14:29)
[2017-07-25] MEDS ORDERED: ePHEDrine 50 mg/ml Inj ONE (14:48)
[2017-07-25] MEDS ORDERED: Morphine 2 mg/ml ISec IVP PRN (15:23)
[2017-07-25] MEDS ORDERED: Neostigmine Methylsulfate 3mg/3ml Syringe IV ONE (15:23)
[2017-07-25] MEDS ORDERED: Glycopyrrolate 0.2 mg/ml (2ml vial) ONE (15:23)
[2017-07-25] MEDS ORDERED: Lactated Ringer's 1,000 ML IV SCH (15:23)
[2017-07-25] MEDS ORDERED: Bacitracin Ointment 30 GM TUBE ONE (15:30)
--- NOTE | 2017-07-25 16:54 | CP.PCM.PN ---
Subjective - Date & Time of Evaluation Date of Evaluation: 07/25/17 Time of Evaluation: 16:36 - Subjective Subjective: CRITICAL CARE PROGRESS NOTE Patient is 67yo Female with PMH of uterine cancer s/p hysterectomy, chemotherapy (stopped due to insurance), DM-2, HTN, dyslipidemia who presented s /p fall and found to have left sided weakness. 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 Patient reports sore throat. Denies fever, chills , cough, chest pain, sob, palpitations, TY, dizziness. PMHx: as above PSHx: Hysterectomy Allergies: NKDA Meds: As per EMR Objective - Vital Signs/Intake and Output Vital Signs (last 24 hours): Temp Pulse Resp BP Pulse Ox 98.1 F 95 H 21 191/86 H 99 07/25/17 16:30 07/25/17 16:30 07/25/17 16:30 07/25/17 16:30 07/25/17 16:30 Intake and Output: 07/25/17 07/25/17 06:59 18:59 Intake Total 0 Output Total 1000 850 Balance -1000 -850 - Medications Medications: Current Medications Al Hydrox/Mg Hydrox/Simethicone (Maalox Plus 30 Ml) 30 ml PO Q8 [facility] Last Admin: 07/25/17 06:04 Dose: Not Given Albuterol/Ipratropium (Duoneb 3 Mg/0.5 Mg (3 Ml) Ud) 3 ml IH Q2H PRN PRN Reason: Shortness of Breath Atorvastatin Calcium (Lipitor) 40 mg PO DAILY [facility] Last Admin: 07/25/17 09:28 Dose: Not Given Dexamethasone (Decadron Inj) 4 mg IVP Q8 [facility] Last Admin: 07/25/17 06:04 Dose: 4 mg Ergocalciferol (Drisdol 50,000 Intl Units Cap) 1 cap PO Q7D [facility] Escitalopram Oxalate (Lexapro) 10 mg PO DAILY [facility] Last Admin: 07/25/17 09:47 Dose: 10 mg Gabapentin (Neurontin) 300 mg PO TID [facility] PRN Reason: Protocol Last Admin: 07/25/17 09:47 Dose: 300 mg Home Med (Home Med) 2 unit PO DAILY [facility] Last Admin: 07/25/17 09:28 Dose: Not Given Dextrose/Sodium Chloride (Dextrose 5%/0.9% Ns 1000 Ml) 1,000 mls @ 75 mls/hr IV .[id number] [facility] Last Admin: 07/25/17 08:25 Dose: 75 mls/hr Lactated Ringer's (Lactated Ringer's) 1,000 mls @ 75 mls/hr IV .[id number] [facility] Stop: 07/25/17 17:24 Ibuprofen (Motrin Tab) 800 mg PO TID PRN PRN Reason: Pain, moderate (4-7) Last Admin: 07/24/17 19:02 Dose: 800 mg Insulin Detemir (Levemir) 10 unit SC HS [facility] Last Admin: 07/24/17 21:49 Dose: 10 unit Insulin Human Lispro (Humalog Med) 0 units SC ACHS [facility] PRN Reason: Protocol Last Admin: 07/25/17 12:00 Dose: Not Given Lisinopril (Zestril) 5 mg PO DAILY [facility] Last Admin: 07/25/17 09:47 Dose: 5 mg Loratadine (Claritin) 10 mg PO DAILY PRN PRN Reason: ALLERGY SYMPTOMS Metoclopramide HCl (Reglan) 10 mg IV ONCE PRN PRN Reason: Nausea/Vomiting Metoprolol Succinate (Toprol Xl) 25 mg PO K [facility] Last Admin: 07/25/17 09:47 Dose: 25 mg Metoprolol Tartrate (Lopressor) 5 mg IVP Q6 PRN PRN Reason: Systolic Blood Pressure Morphine Sulfate (Morphine) 2 mg IVP Q15M PRN PRN Reason: Pain, moderate (4-7) Ondansetron HCl (Zofran Tab) 4 mg PO Q6 PRN PRN Reason: Nausea/Vomiting Ondansetron HCl (Zofran Inj) 4 mg IVP ONCE PRN PRN Reason: Nausea/Vomiting Pantoprazole Sodium (Protonix Inj) 40 mg IVP Q12 [facility] Last Admin: 07/25/17 09:38 Dose: 40 mg Polyethylene Glycol (Miralax) 17 gm PO DAILY [facility] Last Admin: 07/25/17 09:29 Dose: Not Given - Labs Labs: 07/25/17 09:10 07/25/17 06:19 PT 10.3 Seconds (9.9-11.8) 07/19/17 19:00 INR 0.95 (0.93-1.08) 07/19/17 19:00 APTT 27.0 Seconds (23.7-30.8) 07/19/17 19:00 - Constitutional Appears: Well, Non-toxic, No Acute Distress - Head Exam Additional comments: R parietal dressing - Eye Exam Eye Exam: EOMI - Neck Exam Neck Exam: Full ROM - Respiratory Exam Respiratory Exam: Clear to Ausculation Bilateral, NORMAL BREATHING PATTERN - Cardiovascular Exam Cardiovascular Exam: RRR, +S1, +S2 - GI/Abdominal Exam GI & Abdominal Exam: Soft, Normal Bowel Sounds - Extremities Exam Extremities Exam: Normal Inspection - Neurological Exam Neurological Exam: Alert, Awake, Oriented x3 Neuro motor strength exam: Left Upper Extremity: 3, Right Upper Extremity: 5, Left Lower Extremity: 3, Right Lower Extremity: 5 - Psychiatric Exam Psychiatric exam: Normal Affect - Skin Skin Exam: Warm Assessment and Plan - Assessment and Plan (Free Text) Assessment: 67 F with PMH of uterine cancer s/p hysterectomy, chemotherapy (stopped due to insurance), DM-2, HTN, dyslipidemia who presented s/p fall and found to have left sided weakness with R parietal mass s/p resection - currently afebrile, HD stable, comfortable on 2LNC, sat 100% - tolerated the procedure well - neuro exam unchanged Intracranial Mass s/p resection Left sided weakness HTN DM Recommend: - supp o2 via NC - no ID issues - cont with Lisinopril, Lopressor for BP control - q1hr neuro checks - seizure precautions - follow up Neurology regarding IV decadron - NSG follow up - monitor FS - hold Levemir while NPO - DVT ppx, SCDs - GI ppx, Pepcid - PT eval - monitor in MICU
--- NOTE | 2017-07-25 21:05 | CP.PCM.PN ---
<Everett Alva - Last Filed: 07/25/17 21:06> Subjective - Date & Time of Evaluation Date of Evaluation: 07/25/17 Time of Evaluation: 08:00 - Subjective Subjective: Patient has been seen and examined at bedside. Reports decrease of upper extremity weakness. Denies any headache, neck pain, changes in vision, SOB, CP, changes in urination, N/V/D or constipation. Objective - Vital Signs/Intake and Output Vital Signs (last 24 hours): Temp Pulse Resp BP Pulse Ox 98.1 F 95 H 21 185/98 H 99 07/25/17 16:45 07/25/17 18:00 07/25/17 16:45 07/25/17 16:45 07/25/17 16:45 Intake and Output: 07/25/17 07/26/17 18:59 06:59 Output Total 850 150 Balance -850 -150 - Medications Medications: Current Medications Al Hydrox/Mg Hydrox/Simethicone (Maalox Plus 30 Ml) 30 ml PO Q8 [facility] Last Admin: 07/25/17 17:13 Dose: Not Given Albuterol/Ipratropium (Duoneb 3 Mg/0.5 Mg (3 Ml) Ud) 3 ml IH Q2H PRN PRN Reason: Shortness of Breath Atorvastatin Calcium (Lipitor) 40 mg PO DAILY [facility] Last Admin: 07/25/17 09:28 Dose: Not Given Dexamethasone (Decadron Inj) 4 mg IVP Q8 [facility] Last Admin: 07/25/17 17:13 Dose: Not Given Escitalopram Oxalate (Lexapro) 10 mg PO DAILY [facility] Last Admin: 07/25/17 09:47 Dose: 10 mg Gabapentin (Neurontin) 300 mg PO TID [facility] PRN Reason: Protocol Last Admin: 07/25/17 18:47 Dose: 300 mg Dextrose/Sodium Chloride (Dextrose 5%/0.9% Ns 1000 Ml) 1,000 mls @ 75 mls/hr IV .[id number] [facility] Last Admin: 07/25/17 20:44 Dose: 75 mls/hr Insulin Detemir (Levemir) 10 unit SC HS [facility] Last Admin: 07/24/17 21:49 Dose: 10 unit Insulin Human Lispro (Humalog Med) 0 units SC ACHS [facility] PRN Reason: Protocol Last Admin: 07/25/17 18:50 Dose: 5 units Lisinopril (Zestril) 5 mg PO DAILY [facility] Last Admin: 07/25/17 09:47 Dose: 5 mg Metoclopramide HCl (Reglan) 10 mg IV ONCE PRN PRN Reason: Nausea/Vomiting Stop: 07/25/17 23:59 Metoprolol Succinate (Toprol Xl) 25 mg PO BRK [facility] Last Admin: 07/25/17 09:47 Dose: 25 mg Metoprolol Tartrate (Lopressor) 5 mg IVP Q6 PRN PRN Reason: Systolic Blood Pressure Morphine Sulfate (Morphine) 2 mg IVP Q15M PRN PRN Reason: Pain, moderate (4-7) Ondansetron HCl (Zofran Tab) 4 mg PO Q6 PRN PRN Reason: Nausea/Vomiting Ondansetron HCl (Zofran Inj) 4 mg IVP ONCE PRN PRN Reason: Nausea/Vomiting Stop: 07/25/17 23:59 Pantoprazole Sodium (Protonix Inj) 40 mg IVP Q12 [facility] Last Admin: 07/25/17 09:38 Dose: 40 mg Polyethylene Glycol (Miralax) 17 gm PO DAILY [facility] Last Admin: 07/25/17 09:29 Dose: Not Given - Labs Labs: 07/25/17 09:10 07/25/17 06:19 PT 10.3 Seconds (9.9-11.8) 07/19/17 19:00 INR 0.95 (0.93-1.08) 07/19/17 19:00 APTT 27.0 Seconds (23.7-30.8) 07/19/17 19:00 - Constitutional Appears: Well, No Acute Distress - Head Exam Head Exam: ATRAUMATIC, NORMAL INSPECTION, NORMOCEPHALIC - Eye Exam Eye Exam: Normal appearance - ENT Exam ENT Exam: Mucous Membranes Moist - Respiratory Exam Respiratory Exam: Clear to Ausculation Bilateral, Rales, Rhonchi - Cardiovascular Exam Cardiovascular Exam: RRR, +S1, +S2 - GI/Abdominal Exam GI & Abdominal Exam: Soft, Tenderness, Hypoactive Bowel Sounds - Neurological Exam Neurological Exam: Alert, Awake, Oriented x3 Additional comments: left sided hemiplegia, unchanged from yesterday - Psychiatric Exam Psychiatric exam: Normal Affect, Normal Mood Assessment and Plan - Assessment and Plan (Free Text) Assessment: 67 F with PMH of uterine cancer s/p hysterectomy, chemotherapy (stopped due to insurance), DM-2, HTN, dyslipidemia who presented s/p fall and found to have left sided weakness. MRI brain showed cystic mass which can be primary brain tumor vs metastatic. Plan: 1. 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 -Continue Neuro check -Continue seizure precautions -Continue IV Decadron as Per Neurology. -Surgery today (craniotomy/excisional biopsy) . Neurology, Neuro-surgery and Oncology evaluation is appreciated. 2.HTN -BP 142/69 (down from 151/79) -Continue Lisinopril and Metoprolol -Will monitor blood pressure and adjust medications as needed. 3. DM - Insulin Detemir 10 Units SC HS. Will continue to monitor blood glucose levels. -Patient is on Decadron -Continue sliding scale coverage -Will reassess blood glucose medications in the morning and modify accordingly. 4.DVT Prophylaxis -continue SCD's Dispo: Surgery today. Will follow up in CCU tomorrow morning. Patient seen, examined, and reviewed with Attending Everett Alva PGY-1 <Phyllis Jonas - Last Filed: 07/26/17 18:20> Objective - Vital Signs/Intake and Output Vital Signs (last 24 hours): Temp Pulse Resp BP Pulse Ox 97.5 F L 75 19 99/58 L 96 07/26/17 12:00 07/26/17 17:10 07/26/17 17:10 07/26/17 14:01 07/26/17 17:10 Intake and Output: 07/26/17 07/26/17 06:59 18:59 Intake Total 900 Output Total 1150 Balance -250 - Medications Medications: Current Medications Al Hydrox/Mg Hydrox/Simethicone (Maalox Plus 30 Ml) 30 ml PO Q8 [facility] Last Admin: 07/26/17 05:17 Dose: 30 ml Albuterol/Ipratropium (Duoneb 3 Mg/0.5 Mg (3 Ml) Ud) 3 ml IH Q2H PRN PRN Reason: Shortness of Breath Atorvastatin Calcium (Lipitor) 40 mg PO DAILY [facility] Last Admin: 07/26/17 10:45 Dose: 40 mg Benzocaine/Menthol (Cepacol Sore Throat) 1 ryann MT Q2H PRN PRN Reason: Sore Throat Dexamethasone (Decadron Inj) 4 mg IVP Q8 [facility] Last Admin: 07/26/17 15:54 Dose: 4 mg Escitalopram Oxalate (Lexapro) 10 mg PO DAILY [facility] Last Admin: 07/26/17 10:40 Dose: 10 mg Gabapentin (Neurontin) 300 mg PO TID [facility] PRN Reason: Protocol Last Admin: 07/26/17 10:15 Dose: 300 mg Dextrose/Sodium Chloride (Dextrose 5%/0.9% Ns 1000 Ml) 1,000 mls @ 75 mls/hr IV .[id number] [facility] Last Admin: 07/26/17 12:22 Dose: 75 mls/hr Acetaminophen (Ofirmev) 1,000 mg in 100 mls @ 400 mls/hr IVPB Q6H PRN PRN Reason: Pain, moderate (4-7) Stop: 07/28/17 09:16 Last Admin: 07/26/17 11:14 Dose: 400 mls/hr Insulin Detemir (Levemir) 10 unit SC HS [facility] Last Admin: 07/24/17 21:49 Dose: 10 unit Insulin Human Lispro (Humalog Med) 0 units SC ACHS [facility] PRN Reason: Protocol Last Admin: 07/26/17 12:25 Dose: 1 units Lisinopril (Zestril) 5 mg PO DAILY [facility] Last Admin: 07/26/17 11:16 Dose: 5 mg Metoprolol Succinate (Toprol Xl) 25 mg PO BRK [facility] Last Admin: 07/26/17 08:07 Dose: Not Given Metoprolol Tartrate (Lopressor) 5 mg IVP Q6 PRN PRN Reason: Systolic Blood Pressure Morphine Sulfate (Morphine) 2 mg IVP Q15M PRN PRN Reason: Pain, moderate (4-7) Nystatin (Nystop Topical Powder) 1 gm TOP Q8H [facility] Last Admin: 07/26/17 12:28 Dose: 1 mg Nystatin/Triamcinolone Acetonide (Nystatin/Triamcinolone Cream) 1 ea TOP BID [facility] Last Admin: 07/26/17 12:27 Dose: 1 mg Ondansetron HCl (Zofran Tab) 4 mg PO Q6 PRN PRN Reason: Nausea/Vomiting Pantoprazole Sodium (Protonix Inj) 40 mg IVP Q12 [facility] Last Admin: 07/26/17 10:40 Dose: 40 mg Polyethylene Glycol (Miralax) 17 gm PO DAILY [facility] Last Admin: 07/26/17 10:30 Dose: 17 gm - Labs Labs: 07/26/17 08:28 07/26/17 08:28 PT 10.3 Seconds (9.9-11.8) 07/19/17 19:00 INR 0.95 (0.93-1.08) 07/19/17 19:00 APTT 27.0 Seconds (23.7-30.8) 07/19/17 19:00 Attending/Attestation - Attestation I have personally seen and examined this patient.: Yes I have fully participated in the care of the patient.: Yes I have reviewed all pertinent clinical information, including history, physical exam and plan: Yes Notes (Text): 07/26/17 18:17 Attending note; Patient seen and examined with resident. Patient is a 67 year old female with history of uterine cancer s/p hysterectomy , chemotherapy, DM-2, HTN, dyslipidemia who presented s/p fall and found to have left sided weakness. MRI brain showed cystic mass which can be primary brain tumor vs metastatic. Neurologist and neurosurgeon evaluation appreciated. Continue IV decadron. EEG is normal. NPO for surgery today. Anemia; stable. Monitor closely. Hypertension/diabetes; continue Levemir. Blood pressure is Acceptable. Abdominal discomfort; resolved. Possible history of GERD; continue IV Protonix since the patient is on IV Decadron. GI evaluation appreciated. Patient's family is aware of the plan. Upon discharge patient will follow up with [facility]. Harinder Hercules. 07/26/17 18:19
[2017-07-26] MEDS: Alum-Mag Hydrox-Simethicone Susp (30 mL) PO SCH ×3 (02:54→22:00)
--- NOTE | 2017-07-26 03:51 | OP ---
PROCEDURE DATE: 07/25/2017 SURGEON: Errol Patino MD EDGING CATCHER: Tyler Lombardi MD PREOPERATIVE DIAGNOSIS: Right parietal cystic lesion, possible tumor. POSTOPERATIVE DIAGNOSIS: Right parietal cystic lesion, possible tumor. OPERATIVE PROCEDURE: Right parietal craniotomy and extension of cyst. DESCRIPTION OF PROCEDURE: The patient was brought to the operating room, intubated appropriately. Her head was turned to the left. The right parietal area hair was clipped and the area was prepped and draped in the usual manner. A lazy S incision was made out in the parietal region just above the parietal fossa, approximately 2 fingerbreadths off midline, this was instilled with lidocaine with epinephrine after draping, and this was incised sharply. As of note, the scalp was very fatty, the scalp was retracted back with 2 Gelpi and 2 iza holes were placed at the extents of the anterior and posterior aspects of the wound. They were connected with a craniotome and bone plate was removed. Underneath we saw the dura. The most cranial portion appeared normal in appearance; however, the inferior portion of the exposed dura was dark as though it was evident that there was cyst underlying that. The dura was then opened in a C-shaped manner and retracted back toward the midline, and at this point in the inferior aspect of the craniotomy site, a corticectomy was made using the bipolar cautery and with 0.5 cm deep, we came upon a cyst that had old bloody fluid in it, slightly xanthochromic, this was collected and sent for cytology. After evacuating and irrigating the wound, we took a close inspection of the cyst ware, the ware appeared normal throughout, there was no evidence of any abnormality or gliotic-like tissue in any of the aspects of the wound. We then took several specimens of the wall with the pituitary rongeur, obtained hemostasis using combination of bipolar cautery and hemostatic agents. We then irrigated the wound to make certain that hemostasis was meticulous and then, we reapproximated the dural floor with Nurolon, placed a piece of Gelfoam over the exposed dura and then replaced the cranial flap with two 16 mm RapidFix plates and then reapproximated the scalp using combination of 2-0 Vicryl subgaleal sutures and skin sahara. In the posterior aspect of the wound where the scalp was extremely fatty, we put in several simple 3-0 nylon sutures. Sterile dressing was applied. The patient was then woken up from the anesthesia, found to be moving all limbs in preop manner. All counts were correct. SPECIMEN: Cystic fluid and biopsy of the ware of the cyst. BLOOD LOSS: Approximately 50 to 75 mL, no transfusion was given. The patient was taken to recovery room in stable, hemodynamic condition. Errol Patino MD
[2017-07-26] MEDS: Dexamethasone 4 mg/1 ml IVP SCH ×3 (05:17→22:09)
--- NOTE | 2017-07-26 07:29 | CP.CCUPN ---
<Wendy Beck - Last Filed: 07/26/17 11:19> CCU Subjective - Physician Review Events Since Last Encounter (Free Text): 07/26/17 07:26 No acute events overnight Subjective (Free Text): 07/26/17 07:26 Critical care progress note for Dr. Davis-Wendy Beck, PGY-1 Pt S & E at bedside. Pt reports some pain over surgical site on right parietal area of head, is a little cold, hungry. Denies N/V/F, SOB, CP, ab pain. Critical Care Time Spent (in minutes): 35 CCU Objective - Vital Signs / Intake & Output Vital Signs (Last 4 hours): Vital Signs Temp Pulse Resp BP Pulse Ox 07/26/17 05:10 73 15 100 07/26/17 05:01 69 23 143/62 99 07/26/17 05:00 73 26 H 100 07/26/17 04:50 75 27 H 100 07/26/17 04:40 76 14 100 07/26/17 04:30 77 19 99 07/26/17 04:20 76 19 99 07/26/17 04:10 85 22 99 07/26/17 04:01 80 18 139/38 L 99 07/26/17 04:00 98 F 80 19 100 07/26/17 03:50 80 21 100 07/26/17 03:40 76 19 100 07/26/17 03:30 79 23 100 Intake and Output (Last 8hrs): Intake & Output 07/25/17 07/26/17 07/26/17 22:59 06:59 14:59 Intake Total 900 Output Total 1000 1000 Balance -1000 -100 Intake: IV 900 Left Distal Port 900 Output: Urine 1000 1000 Urethral (Huerta) 1000 Urine, Voided 1000 Other: # Voids Urine, Voided 1 # Bowel Movements 1 - Physical Exam Head: Positive for: Normocephalic, Other (Right parietal area with large dressing in place- C/D/I). Negative for: Atraumatic, Tenderness, Contusion, Swelling Pupils: Positive for: PERRL Extroacular Muscles: Positive for: EOMI Conjunctiva: Positive for: Normal. Negative for: Injected, Icteric Ears: Positive for: Normal. Negative for: NORMAL TM, Erythema Mouth: Positive for: Dry. Negative for: Moist Mucous Membranes, Drooling, Trismus, Normal Teeth (dentures - upper and lower) Pharnyx: Positive for: Normal. Negative for: ERYTHEMA, EXUDATE, TONSILS ENLARGED Nose (External): Negative for: Atraumatic, Abrasion, Contusion Nose (Internal): Positive for: Normal Inspection. Negative for: Engorged, Edematous Neck: Positive for: Normal Range of Motion. Negative for: Meningeal Signs, MIDLINE TENDERNESS, Paraspinal Tenderness Respiratory/Chest: Positive for: Clear to Auscultation, Good Air Exchange. Negative for: Respiratory Distress, Accessory Muscle Use Cardiovascular: Positive for: Regular Rate and Rhythm, Normal S1, S2. Negative for: Murmurs, Rub Abdomen: Positive for: Normal Bowel Sounds, Other (large pannus, moisture, foul smell, erythema with small amount of thick yellow plaques). Negative for: Tenderness, Distention (obese), Peritoneal Signs, Rebound, Guarding Upper Extremity: Positive for: Normal Inspection. Negative for: Cyanosis, Edema , Normal ROM Lower Extremity: Positive for: Normal Inspection, NORMAL PULSES. Negative for: Edema, CALF TENDERNESS, Cyanosis, Normal ROM, Neurovascularly Intact (Pt's muscle strength in LLE is 2/5 and has almost complete loss of sensation.) Neurological: Positive for: GCS=15, CN II-XII Intact, Speech Normal, Motor Func Grossly Intact (4/5 motor strength RUE, 3/5 motor strength LUE, 5/5 motor strength RLE, 3/5 motor strength LLE) Skin: Positive for: Warm, Dry, Normal Color. Negative for: Rashes, Laceration Psychiatric: Positive for: Alert, Oriented x 3, Normal Affect, Normal Mood - Medications Active Medications: Active Medications Generic Name Dose Route Start Last Admin Trade Name Freq PRN Reason Stop Dose Admin Al Hydrox/Mg Hydrox/Simethicone 30 ml 07/23/17 08:30 07/26/17 05:17 Maalox Plus 30 Ml PO 30 ml Q8 VANIA Administration Albuterol/Ipratropium 3 ml 07/20/17 01:20 Duoneb 3 Mg/0.5 Mg (3 Ml) Ud IH Q2H PRN Shortness of Breath Atorvastatin Calcium 40 mg 07/20/17 10:00 07/25/17 09:28 Lipitor PO Not Given DAILY VANIA Dexamethasone 4 mg 07/22/17 14:00 07/26/17 05:17 Decadron Inj IVP 4 mg Q8 VANIA Administration Escitalopram Oxalate 10 mg 07/20/17 10:00 07/25/17 09:47 Lexapro PO 10 mg DAILY VANIA Administration Gabapentin 300 mg 07/20/17 10:00 07/25/17 18:47 Neurontin PO 300 mg TID VANIA Administration Protocol Dextrose/Sodium Chloride 1,000 mls @ 75 mls/hr 07/25/17 07:00 07/25/17 20:44 Dextrose 5%/0.9% Ns 1000 Ml IV 75 mls/hr .[id number] VANIA Administration Insulin Detemir 10 unit 07/23/17 08:01 07/24/17 21:49 Levemir SC 10 unit HS VANIA Administration Insulin Human Lispro 0 units 07/20/17 07:30 07/25/17 22:51 Humalog Med SC Not Given ACHS [facility] Protocol Lisinopril 5 mg 07/20/17 10:00 07/25/17 09:47 Zestril PO 5 mg DAILY VANIA Administration Metoprolol Succinate 25 mg 07/20/17 08:00 07/25/17 09:47 Toprol Xl PO 25 mg BRK VANIA Administration Metoprolol Tartrate 5 mg 07/25/17 09:01 Lopressor IVP Q6 PRN Systolic Blood Pressure Morphine Sulfate 2 mg 07/25/17 15:23 Morphine IVP Q15M PRN Pain, moderate (4-7) Ondansetron HCl 4 mg 07/20/17 02:31 Zofran Tab PO Q6 PRN Nausea/Vomiting Pantoprazole Sodium 40 mg 07/23/17 22:00 07/25/17 21:21 Protonix Inj IVP 40 mg Q12 [facility]ANIA Administration Polyethylene Glycol 17 gm 07/23/17 14:00 07/25/17 09:29 Miralax PO Not Given DAILY VANIA - Patient Studies Lab Studies: Lab Studies 07/25/17 07/25/17 07/25/17 Range/Units 22:27 17:48 11:41 WBC (4.5-11.0) 10^3/ul RBC (3.5-6.1) 10^6/uL Hgb (12.0-16.0) g/dL Hct (36.0-48.0) % MCV (80.0-105.0) fl MCH (25.0-35.0) pg MCHC (31.0-37.0) g/dl RDW (11.5-14.5) % Plt Count (120.0-450.0) 10^3/uL MPV (7.0-11.0) fl POC Glucose (mg/dL) 258 H 273 H 274 H (65-110) mg/dL 07/25/17 Range/Units 09:10 WBC 8.9 (4.5-11.0) 10^3/ul RBC 3.41 L (3.5-6.1) 10^6/uL Hgb 10.1 L (12.0-16.0) g/dL Hct 30.6 L (36.0-48.0) % MCV 89.7 (80.0-105.0) fl MCH 29.6 (25.0-35.0) pg MCHC 33.0 (31.0-37.0) g/dl RDW 12.4 (11.5-14.5) % Plt Count 274 (120.0-450.0) 10^3/uL MPV 9.2 (7.0-11.0) fl POC Glucose (mg/dL) (65-110) mg/dL Laboratory Results - last 24 hr 07/25/17 07/25/17 07/25/17 09:10 11:41 17:48 WBC 8.9 RBC 3.41 L Hgb 10.1 L Hct 30.6 L MCV 89.7 MCH 29.6 MCHC 33.0 RDW 12.4 Plt Count 274 MPV 9.2 POC Glucose (mg/dL) 274 H 273 H 07/25/17 22:27 WBC RBC Hgb Hct MCV MCH MCHC RDW Plt Count MPV POC Glucose (mg/dL) 258 H Fingerstick Blood Sugar Results: 258 Review of Systems - Review of Systems All systems: reviewed and no additional remarkable complaints except - Constitutional Constitutional: absent: Fever, Chills - EENT Eyes: UNREMARKABLE Ears: UNREMARKABLE Nose/Mouth/Throat: Dry Mouth, Sore Throat - Cardiovascular Cardiovascular: UNREMARKABLE. absent: Chest Pain - Gastrointestinal Gastrointestinal: Constipation. absent: Abdominal Pain, Nausea, Vomiting - Genitourinary Genitourinary: UNREMARKABLE - Musculoskeletal Musculoskeletal: Back Pain - Integumentary Integumentary: Rash - Neurological Neurological: absent: Abnormal Speech Critical Care Progress Note - Extremities/Vascular Does the Patient have a Central Venous Catheter?: No Does the Patient need a Central Venous Catheter?: No Does the Patient have a Huerta Catheter?: No Does the Patient need a Huerta Catheter?: No - Prophylaxis GI Prophylaxis GI: PPI - Prophylaxis DVT Prophylaxis DVT: SCDs Assessment/Plan - Assessment and Plan (Free Text) Assessment: 67F POD#1 s/p craniotomy w/cystic lesion resection, stable overnight Plan: Neuro POD#1 s/p craniotomy excision of tumor AOx3 Pain in surgical site Tylenol PRN Decadron Stable FU EEG neuro check Q1H Seizure precautions Aspiration precautions Neurosurgery following Neuro following CVS HTN, HLD BP mostly WNL Normotensive Lipitor Lisinopril Lopressor PRN Toprol XL Monitor Pulm Stable on O2 via NC Duonebs PRN Monitor GI Cepacol PRN sore throat Maalox Zofran Miralax Diabetic diet Uterine CA s/p FITO w/B/L salpingo-oophrectomy s/p Radiation and chemo Huerta in place Monitor UOP Nephro Electroltyes WNL D5, 1/2 NS@75 Monitor ID Afebrile No leukocytosis Urine cx neg Monitor Endo DM Levemir ISS Accuchecks Diabetic diet Heme Hgb 9.7 from 10.1 Hct 29.0 from 30.6 No signs of bleeding Monitor MSK Possible candidiasis of pannus Nystatin cream Herniated discs Neurontin High risk fall protocol Monitor for skin break down PT OOBTC Psych Lexapro GI/DVT ppx Protonix SCDs Dispo Stable Transfer to tele OOB PT/OT DW attending Ebony, PGY-1 - Date & Time Date: 07/26/17 Time: 07:14 <Ramiro Davis - Last Filed: 07/26/17 15:23> CCU Objective - Vital Signs / Intake & Output Vital Signs (Last 4 hours): Vital Signs Temp Pulse Resp BP Pulse Ox 07/26/17 13:40 78 19 95 07/26/17 13:30 76 20 95 07/26/17 13:20 78 23 96 07/26/17 13:10 81 21 96 07/26/17 13:01 80 28 H 113/57 L 97 07/26/17 13:00 81 10 L 96 07/26/17 12:50 76 17 96 07/26/17 12:40 75 18 96 07/26/17 12:30 82 27 H 99 07/26/17 12:20 67 16 99 07/26/17 12:10 72 21 99 07/26/17 12:02 71 20 134/95 H 98 07/26/17 12:00 97.5 F L 70 18 99 07/26/17 11:50 75 23 98 07/26/17 11:40 72 98 07/26/17 11:30 69 17 98 Intake and Output (Last 8hrs): Intake & Output 07/26/17 07/26/17 07/26/17 06:59 14:59 22:59 Intake Total 900 Output Total 1000 Balance -100 Intake: IV 900 Left Distal Port 900 Output: Urine 1000 Urethral (Huerta) 1000 - Medications Active Medications: Active Medications Generic Name Dose Route Start Last Admin Trade Name Freq PRN Reason Stop Dose Admin Al Hydrox/Mg Hydrox/Simethicone 30 ml 07/23/17 08:30 07/26/17 05:17 Maalox Plus 30 Ml PO 30 ml Q8 VANIA Administration Albuterol/Ipratropium 3 ml 07/20/17 01:20 Duoneb 3 Mg/0.5 Mg (3 Ml) Ud IH Q2H PRN Shortness of Breath Atorvastatin Calcium 40 mg 07/20/17 10:00 07/26/17 10:45 Lipitor PO 40 mg DAILY VANIA Administration Benzocaine/Menthol 1 ryann 07/26/17 09:25 Cepacol Sore Throat MT Q2H PRN Sore Throat Dexamethasone 4 mg 07/22/17 14:00 07/26/17 05:17 Decadron Inj IVP 4 mg Q8 VANIA Administration Escitalopram Oxalate 10 mg 07/20/17 10:00 07/26/17 10:40 Lexapro PO 10 mg DAILY VANIA Administration Gabapentin 300 mg 07/20/17 10:00 07/26/17 10:15 Neurontin PO 300 mg TID VANIA Administration Protocol Dextrose/Sodium Chloride 1,000 mls @ 75 mls/hr 07/25/17 07:00 07/26/17 12:22 Dextrose 5%/0.9% Ns 1000 Ml IV 75 mls/hr .[id number] [facility]ANIA Administration Acetaminophen 1,000 mg in 100 mls @ 400 mls/hr 07/26/17 09:15 07/26/17 11:14 Ofirmev IVPB 07/28/17 09:16 400 mls/hr Q6H PRN Administration Pain, moderate (4-7) Insulin Detemir 10 unit 07/23/17 08:01 07/24/17 21:49 Levemir SC 10 unit HS VANIA Administration Insulin Human Lispro 0 units 07/20/17 07:30 07/26/17 12:25 Humalog Med SC 1 units ACHS [facility]ANIA Administration Protocol Lisinopril 5 mg 07/20/17 10:00 07/26/17 11:16 Zestril PO 5 mg DAILY VANIA Administration Metoprolol Succinate 25 mg 07/20/17 08:00 07/26/17 08:07 Toprol Xl PO Not Given BRK VANIA Metoprolol Tartrate 5 mg 07/25/17 09:01 Lopressor IVP Q6 PRN Systolic Blood Pressure Morphine Sulfate 2 mg 07/25/17 15:23 Morphine IVP Q15M PRN Pain, moderate (4-7) Nystatin 1 gm 07/26/17 11:30 07/26/17 12:28 Nystop Topical Powder TOP 1 mg Q8H VANIA Administration Nystatin/Triamcinolone Acetonide 1 ea 07/26/17 11:30 07/26/17 12:27 Nystatin/Triamcinolone Cream TOP 1 mg BID VANIA Administration Ondansetron HCl 4 mg 07/20/17 02:31 Zofran Tab PO Q6 PRN Nausea/Vomiting Pantoprazole Sodium 40 mg 07/23/17 22:00 07/26/17 10:40 Protonix Inj IVP 40 mg Q12 VANIA Administration Polyethylene Glycol 17 gm 07/23/17 14:00 07/26/17 10:30 Miralax PO 17 gm DAILY VANIA Administration - Patient Studies Lab Studies: Lab Studies 07/26/17 07/26/17 07/26/17 Range/Units 12:08 08:28 08:28 WBC 13.7 H D (4.5-11.0) 10^3/ul RBC 3.27 L (3.5-6.1) 10^6/uL Hgb 9.7 L (12.0-16.0) g/dL Hct 29.0 L (36.0-48.0) % MCV 88.7 (80.0-105.0) fl MCH 29.7 (25.0-35.0) pg MCHC 33.4 (31.0-37.0) g/dl RDW 12.8 (11.5-14.5) % Plt Count 229 (120.0-450.0) 10^3/uL MPV 8.8 (7.0-11.0) fl Gran % 92.4 H (50.0-68.0) % Lymph % (Auto) 3.6 L (22.0-35.0) % Monona % (Auto) 4.0 (1.0-6.0) % Eos % (Auto) 0.0 L (1.5-5.0) % Baso % (Auto) 0.0 (0.0-3.0) % Gran # 12.70 H (1.4-6.5) Lymph # 0.5 L (1.2-3.4) Monona # 0.6 (0.1-0.6) Eos # 0.0 (0.0-0.7) Baso # 0.00 (0.0-2.0) K/mm3 Neutrophils % (Manual) 93 H (50.0-70.0) % Lymphocytes % (Manual) 4 L (22.0-35.0) % Monocytes % (Manual) 3 (1.0-6.0) % Platelet Evaluation Normal (NORMAL) Polychromasia Slight Hypochromasia 1+ Anisocytosis (manual) 1+ Ovalocytes Slight Sodium 137 (132-148) mmol/L Potassium 4.8 (3.6-5.0) mmol/L Chloride 103 (98-107) mmol/L Carbon Dioxide 26 (21-33) mmol/L Anion Gap 13 (10-20) BUN 34 H (7-21) mg/dL Creatinine 1.0 (0.5-1.4) mg/dL Est GFR ( Amer) > 60 Est GFR (Non-Af Amer) 56 POC Glucose (mg/dL) 265 H (65-110) mg/dL Random Glucose 294 H (70-110) mg/dL Calcium 9.0 (8.4-10.5) mg/dL Phosphorus 4.4 (2.5-4.5) mg/dL Magnesium 2.3 H (1.7-2.2) mg/dL Total Bilirubin 0.5 (0.2-1.3) mg/dL AST 25 (14-36) U/L ALT 35 (7-56) U/L Alkaline Phosphatase 80 (38-126) U/L Total Protein 6.5 (5.8-8.3) g/dL Albumin 3.7 (3.0-4.8) g/dL Globulin 2.8 gm/dL Albumin/Globulin Ratio 1.3 (1.1-1.8) 07/26/17 07/25/17 07/25/17 Range/Units 08:20 22:27 17:48 WBC (4.5-11.0) 10^3/ul RBC (3.5-6.1) 10^6/uL Hgb (12.0-16.0) g/dL Hct (36.0-48.0) % MCV (80.0-105.0) fl MCH (25.0-35.0) pg MCHC (31.0-37.0) g/dl RDW (11.5-14.5) % Plt Count (120.0-450.0) 10^3/uL MPV (7.0-11.0) fl Gran % (50.0-68.0) % Lymph % (Auto) (22.0-35.0) % Mon[place] % (Auto) (1.0-6.0) % Eos % (Auto) (1.5-5.0) % Baso % (Auto) (0.0-3.0) % Gran # (1.4-6.5) Lymph # (1.2-3.4) Monona # (0.1-0.6) Eos # (0.0-0.7) Baso # (0.0-2.0) K/mm3 Neutrophils % (Manual) (50.0-70.0) % Lymphocytes % (Manual) (22.0-35.0) % Monocytes % (Manual) (1.0-6.0) % Platelet Evaluation (NORMAL) Polychromasia Hypochromasia Anisocytosis (manual) Ovalocytes Sodium (132-148) mmol/L Potassium (3.6-5.0) mmol/L Chloride (98-107) mmol/L Carbon Dioxide (21-33) mmol/L Anion Gap (10-20) BUN (7-21) mg/dL Creatinine (0.5-1.4) mg/dL Est GFR ( Amer) Est GFR (Non-Af Amer) POC Glucose (mg/dL) 353 H 258 H 273 H (65-110) mg/dL Random Glucose (70-110) mg/dL Calcium (8.4-10.5) mg/dL Phosphorus (2.5-4.5) mg/dL Magnesium (1.7-2.2) mg/dL Total Bilirubin (0.2-1.3) mg/dL AST (14-36) U/L ALT (7-56) U/L Alkaline Phosphatase (38-126) U/L Total Protein (5.8-8.3) g/dL Albumin (3.0-4.8) g/dL Globulin gm/dL Albumin/Globulin Ratio (1.1-1.8) Laboratory Results - last 24 hr 07/25/17 07/25/17 07/26/17 17:48 22:27 08:20 WBC RBC Hgb Hct MCV MCH MCHC RDW Plt Count MPV Gran % Lymph % (Auto) Monona % (Auto) Eos % (Auto) Baso % (Auto) Gran # Lymph # [place] # Eos # Baso # Neutrophils % (Manual) Lymphocytes % (Manual) Monocytes % (Manual) Platelet Evaluation Polychromasia Hypochromasia Anisocytosis (manual) Ovalocytes Sodium Potassium Chloride Carbon Dioxide Anion Gap BUN Creatinine Est GFR ( Amer) Est GFR (Non-Af Amer) POC Glucose (mg/dL) 273 H 258 H 353 H Random Glucose Calcium Phosphorus Magnesium Total Bilirubin AST ALT Alkaline Phosphatase Total Protein Albumin Globulin Albumin/Globulin Ratio 07/26/17 07/26/17 07/26/17 08:28 08:28 12:08 WBC 13.7 H D RBC 3.27 L Hgb 9.7 L Hct 29.0 L MCV 88.7 MCH 29.7 MCHC 33.4 RDW 12.8 Plt Count 229 MPV 8.8 Gran % 92.4 H Lymph % (Auto) 3.6 L [place] % (Auto) 4.0 Eos % (Auto) 0.0 L Baso % (Auto) 0.0 Gran # 12.70 H Lymph # 0.5 L Mon[place] # 0.6 Eos # 0.0 Baso # 0.00 Neutrophils % (Manual) 93 H Lymphocytes % (Manual) 4 L Monocytes % (Manual) 3 Platelet Evaluation Normal Polychromasia Slight Hypochromasia 1+ Anisocytosis (manual) 1+ Ovalocytes Slight Sodium 137 Potassium 4.8 Chloride 103 Carbon Dioxide 26 Anion Gap 13 BUN 34 H Creatinine 1.0 Est GFR ( Amer) > 60 Est GFR (Non-Af Amer) 56 POC Glucose (mg/dL) 265 H Random Glucose 294 H Calcium 9.0 Phosphorus 4.4 Magnesium 2.3 H Total Bilirubin 0.5 AST 25 ALT 35 Alkaline Phosphatase 80 Total Protein 6.5 Albumin 3.7 Globulin 2.8 Albumin/Globulin Ratio 1.3 Critical Care Progress Note - Nutrition Nutrition: Nutrition Category Date Time Status Diabetic [Consistent Carbohydrate] [DIET] Diets 07/26/17 Lunch Ordered Attending/Attestation - Attestation I have personally seen and examined this patient.: Yes I have fully participated in the care of the patient.: Yes I have reviewed all pertinent clinical information: Yes Notes (Text): 07/26/17 15:21 67 yo female in the ICU for overnight observation after neurosurgical scheduled intervention. Pain control, pulmonary toilet, OOB to chair, PT/OT, neuro and nsx follow up, IS, chest PT, dvt/gi prophylaxis ccm time 40 min
[2017-07-26] MEDS: Insulin Lispro (humaLOG) MEDIUM Coverage SC SCH ×4 (07:50→22:05)
[2017-07-26] MEDS: Metoprolol Succinate 25 mg XL Tab PO SCH (08:07)
[2017-07-26 08:36] LABS: GRAN % 92.4 % (50.0-68.0); LYMPH # 0.5 (1.2-3.4); LYMPH % 3.6 % (22.0-35.0); MEAN CELL VOLUME 88.7 fl (80.0-105.0); MEAN CORPUSCULAR HEMOGLOBIN 29.7 pg (25.0-35.0); MEAN CORPUSCULAR HGB CONC 33.4 g/dl (31.0-37.0); MEAN PLATELET VOLUME 8.8 fl (7.0-11.0); MONO # 0.6 (0.1-0.6); PLATELET COUNT 229 10^3/uL (120.0-450.0); RED CELL DISTRIBUTION WIDTH 12.8 % (11.5-14.5); WHITE BLOOD COUNT 13.7 10^3/ul (4.5-11.0)
[2017-07-26 08:48] LABS: ALB/GLOB RATIO 1.3 (1.1-1.8); ALKALINE PHOSPHATASE 80 U/L (38-126); ALT/SGPT 35 U/L (7-56); AST/SGOT 25 U/L (14-36); BILIRUBIN,TOTAL 0.5 mg/dL (0.2-1.3); BLOOD UREA NITROGEN 34 mg/dL (7-21); CARBON DIOXIDE 26 mmol/L (21-33); CHLORIDE 103 mmol/L (98-107); GFR AFRICAN-AMERICAN > 60; GLUCOSE,RANDOM 294 mg/dL (70-110); MAGNESIUM 2.3 mg/dL (1.7-2.2); PHOSPHOROUS 4.4 mg/dL (2.5-4.5); POTASSIUM 4.8 mmol/L (3.6-5.0); SODIUM 137 mmol/L (132-148); TOTAL PROTEIN 6.5 g/dL (5.8-8.3)
[2017-07-26 09:14] LABS: NEUTROPHIL 93 % (50.0-70.0)
[2017-07-26 09:15] LABS: ANISOCYTOSIS 1+; HYPOCHROMIA 1+; OVALOCYTES SLIGHT; PLATELET ESTIMATE NORMAL (NORMAL); POLYCHROMASIA SLIGHT
--- NOTE | 2017-07-26 09:22 | CP.PCM.PN ---
Subjective - Date & Time of Evaluation Date of Evaluation: 07/25/17 Time of Evaluation: 12:00 - Subjective Subjective: left upper extremity weakness improved Objective - Vital Signs/Intake and Output Vital Signs (last 24 hours): Temp Pulse Resp BP Pulse Ox 98 F 66 17 124/59 L 97 07/26/17 08:00 07/26/17 09:01 07/26/17 09:01 07/26/17 09:01 07/26/17 09:01 Intake and Output: 07/26/17 07/26/17 06:59 18:59 Intake Total 900 Output Total 1150 Balance -250 - Medications Medications: Current Medications Al Hydrox/Mg Hydrox/Simethicone (Maalox Plus 30 Ml) 30 ml PO Q8 [facility] Last Admin: 07/26/17 05:17 Dose: 30 ml Albuterol/Ipratropium (Duoneb 3 Mg/0.5 Mg (3 Ml) Ud) 3 ml IH Q2H PRN PRN Reason: Shortness of Breath Atorvastatin Calcium (Lipitor) 40 mg PO DAILY [facility] Last Admin: 07/25/17 09:28 Dose: Not Given Dexamethasone (Decadron Inj) 4 mg IVP Q8 [facility] Last Admin: 07/26/17 05:17 Dose: 4 mg Escitalopram Oxalate (Lexapro) 10 mg PO DAILY [facility] Last Admin: 07/25/17 09:47 Dose: 10 mg Gabapentin (Neurontin) 300 mg PO TID [facility]ANIA PRN Reason: Protocol Last Admin: 07/25/17 18:47 Dose: 300 mg Dextrose/Sodium Chloride (Dextrose 5%/0.9% Ns 1000 Ml) 1,000 mls @ 75 mls/hr IV .[id number] [facility] Last Admin: 07/25/17 20:44 Dose: 75 mls/hr Acetaminophen (Ofirmev) 1,000 mg in 100 mls @ 400 mls/hr IVPB Q6H PRN PRN Reason: Pain, moderate (4-7) Stop: 07/28/17 09:16 Insulin Detemir (Levemir) 10 unit SC HS [facility] Last Admin: 07/24/17 21:49 Dose: 10 unit Insulin Human Lispro (Humalog Med) 0 units SC ACHS [facility] PRN Reason: Protocol Last Admin: 07/26/17 07:50 Dose: 8 units Lisinopril (Zestril) 5 mg PO DAILY [facility] Last Admin: 07/25/17 09:47 Dose: 5 mg Metoprolol Succinate (Toprol Xl) 25 mg PO BRK [facility] Last Admin: 07/26/17 08:07 Dose: Not Given Metoprolol Tartrate (Lopressor) 5 mg IVP Q6 PRN PRN Reason: Systolic Blood Pressure Morphine Sulfate (Morphine) 2 mg IVP Q15M PRN PRN Reason: Pain, moderate (4-7) Ondansetron HCl (Zofran Tab) 4 mg PO Q6 PRN PRN Reason: Nausea/Vomiting Pantoprazole Sodium (Protonix Inj) 40 mg IVP Q12 [facility] Last Admin: 07/25/17 21:21 Dose: 40 mg Polyethylene Glycol (Miralax) 17 gm PO DAILY [facility] Last Admin: 07/25/17 09:29 Dose: Not Given - Labs Labs: 07/26/17 08:28 07/26/17 08:28 PT 10.3 Seconds (9.9-11.8) 07/19/17 19:00 INR 0.95 (0.93-1.08) 07/19/17 19:00 APTT 27.0 Seconds (23.7-30.8) 07/19/17 19:00 - Head Exam Head Exam: ATRAUMATIC - Eye Exam Eye Exam: Normal appearance - ENT Exam ENT Exam: Mucous Membranes Dry - Respiratory Exam Respiratory Exam: NORMAL BREATHING PATTERN - Cardiovascular Exam Cardiovascular Exam: +S1, +S2 - GI/Abdominal Exam GI & Abdominal Exam: Normal Bowel Sounds Assessment and Plan (1) Brain mass Assessment & Plan: for excisional biopsy ?malignancy hx of uterine cancer but no evidence of disease by CT C/A/P Status: Acute (2) Anemia Assessment & Plan: chronic disease Status: Acute
[2017-07-26] MEDS ORDERED: Benzocaine/Menthol (Cepacol) Lozenge MT PRN (09:25)
[2017-07-26] MEDS: POLYETHYLENE GLYCOL 3350 17 GM/Dose PACKET PO SCH (10:30)
--- NOTE | 2017-07-26 12:18 | CP.PCM.PN ---
Subjective - Date & Time of Evaluation Date of Evaluation: 07/26/17 Time of Evaluation: 12:16 - Subjective Subjective: POD 1 doing well a,a,o x 3 commands perrl eomi hendricks well dsg c and d plan t to floor OOB PT diet Objective - Vital Signs/Intake and Output Vital Signs (last 24 hours): Temp Pulse Resp BP Pulse Ox 98 F 70 17 108/65 97 07/26/17 08:00 07/26/17 12:00 07/26/17 09:01 07/26/17 11:16 07/26/17 09:01 Intake and Output: 07/26/17 07/26/17 06:59 18:59 Intake Total 900 Output Total 1150 Balance -250 - Medications Medications: Current Medications Al Hydrox/Mg Hydrox/Simethicone (Maalox Plus 30 Ml) 30 ml PO Q8 [facility] Last Admin: 07/26/17 05:17 Dose: 30 ml Albuterol/Ipratropium (Duoneb 3 Mg/0.5 Mg (3 Ml) Ud) 3 ml IH Q2H PRN PRN Reason: Shortness of Breath Atorvastatin Calcium (Lipitor) 40 mg PO DAILY [facility] Last Admin: 07/26/17 10:45 Dose: 40 mg Benzocaine/Menthol (Cepacol Sore Throat) 1 ryann MT Q2H PRN PRN Reason: Sore Throat Dexamethasone (Decadron Inj) 4 mg IVP Q8 [facility] Last Admin: 07/26/17 05:17 Dose: 4 mg Escitalopram Oxalate (Lexapro) 10 mg PO DAILY [facility] Last Admin: 07/26/17 10:40 Dose: 10 mg Gabapentin (Neurontin) 300 mg PO TID [facility] PRN Reason: Protocol Last Admin: 07/26/17 10:15 Dose: 300 mg Dextrose/Sodium Chloride (Dextrose 5%/0.9% Ns 1000 Ml) 1,000 mls @ 75 mls/hr IV .[id number] [facility] Last Admin: 07/25/17 20:44 Dose: 75 mls/hr Acetaminophen (Ofirmev) 1,000 mg in 100 mls @ 400 mls/hr IVPB Q6H PRN PRN Reason: Pain, moderate (4-7) Stop: 07/28/17 09:16 Last Admin: 07/26/17 11:14 Dose: 400 mls/hr Insulin Detemir (Levemir) 10 unit SC HS [facility] Last Admin: 07/24/17 21:49 Dose: 10 unit Insulin Human Lispro (Humalog Med) 0 units SC ACHS [facility] PRN Reason: Protocol Last Admin: 07/26/17 07:50 Dose: 8 units Lisinopril (Zestril) 5 mg PO DAILY [facility] Last Admin: 07/26/17 11:16 Dose: 5 mg Metoprolol Succinate (Toprol Xl) 25 mg PO BRK [facility] Last Admin: 07/26/17 08:07 Dose: Not Given Metoprolol Tartrate (Lopressor) 5 mg IVP Q6 PRN PRN Reason: Systolic Blood Pressure Morphine Sulfate (Morphine) 2 mg IVP Q15M PRN PRN Reason: Pain, moderate (4-7) Nystatin (Nystop Topical Powder) 1 gm TOP Q8H [facility] Nystatin/Triamcinolone Acetonide (Nystatin/Triamcinolone Cream) 1 ea TOP BID [facility] Ondansetron HCl (Zofran Tab) 4 mg PO Q6 PRN PRN Reason: Nausea/Vomiting Pantoprazole Sodium (Protonix Inj) 40 mg IVP Q12 [facility] Last Admin: 07/26/17 10:40 Dose: 40 mg Polyethylene Glycol (Miralax) 17 gm PO DAILY [facility] Last Admin: 07/26/17 10:30 Dose: 17 gm - Labs Labs: 07/26/17 08:28 07/26/17 08:28 PT 10.3 Seconds (9.9-11.8) 07/19/17 19:00 INR 0.95 (0.93-1.08) 07/19/17 19:00 APTT 27.0 Seconds (23.7-30.8) 07/19/17 19:00
[2017-07-26] MEDS: Dextrose 5%/0.9% NS 1,000 ML IV SCH (12:22)
[2017-07-26] MEDS: Nystatin-Triamcinolone Cream(30 gm) TOP SCH (12:27)
[2017-07-26] MEDS: Nystatin 100,000 Units/gm Topical Pow(15 gm) TOP SCH ×2 (12:28→19:30)
--- NOTE | 2017-07-26 13:12 | CP.PCM.PN ---
<Caitlin Malhotra - Last Filed: 07/26/17 13:11> Subjective - Date & Time of Evaluation Date of Evaluation: 07/26/17 Time of Evaluation: 09:35 - Subjective Subjective: Seen and examined at the bedside earlier today. The chart was reviewed. Patient denies nausea, vomiting, headache, fever or chills. No acute overnights events reported. Objective - Vital Signs/Intake and Output Vital Signs (last 24 hours): Temp Pulse Resp BP Pulse Ox 98 F 70 17 108/65 97 07/26/17 08:00 07/26/17 12:00 07/26/17 09:01 07/26/17 11:16 07/26/17 09:01 Intake and Output: 07/26/17 07/26/17 06:59 18:59 Intake Total 900 Output Total 1150 Balance -250 - Medications Medications: Current Medications Al Hydrox/Mg Hydrox/Simethicone (Maalox Plus 30 Ml) 30 ml PO Q8 [facility] Last Admin: 07/26/17 05:17 Dose: 30 ml Albuterol/Ipratropium (Duoneb 3 Mg/0.5 Mg (3 Ml) Ud) 3 ml IH Q2H PRN PRN Reason: Shortness of Breath Atorvastatin Calcium (Lipitor) 40 mg PO DAILY [facility] Last Admin: 07/26/17 10:45 Dose: 40 mg Benzocaine/Menthol (Cepacol Sore Throat) 1 ryann MT Q2H PRN PRN Reason: Sore Throat Dexamethasone (Decadron Inj) 4 mg IVP Q8 [facility] Last Admin: 07/26/17 05:17 Dose: 4 mg Escitalopram Oxalate (Lexapro) 10 mg PO DAILY [facility] Last Admin: 07/26/17 10:40 Dose: 10 mg Gabapentin (Neurontin) 300 mg PO TID [facility] PRN Reason: Protocol Last Admin: 07/26/17 10:15 Dose: 300 mg Dextrose/Sodium Chloride (Dextrose 5%/0.9% Ns 1000 Ml) 1,000 mls @ 75 mls/hr IV .[id number] [facility] Last Admin: 07/26/17 12:22 Dose: 75 mls/hr Acetaminophen (Ofirmev) 1,000 mg in 100 mls @ 400 mls/hr IVPB Q6H PRN PRN Reason: Pain, moderate (4-7) Stop: 07/28/17 09:16 Last Admin: 07/26/17 11:14 Dose: 400 mls/hr Insulin Detemir (Levemir) 10 unit SC HS [facility] Last Admin: 07/24/17 21:49 Dose: 10 unit Insulin Human Lispro (Humalog Med) 0 units SC ACHS [facility] PRN Reason: Protocol Last Admin: 07/26/17 12:25 Dose: 1 units Lisinopril (Zestril) 5 mg PO DAILY [facility] Last Admin: 07/26/17 11:16 Dose: 5 mg Metoprolol Succinate (Toprol Xl) 25 mg PO BRK [facility] Last Admin: 07/26/17 08:07 Dose: Not Given Metoprolol Tartrate (Lopressor) 5 mg IVP Q6 PRN PRN Reason: Systolic Blood Pressure Morphine Sulfate (Morphine) 2 mg IVP Q15M PRN PRN Reason: Pain, moderate (4-7) Nystatin (Nystop Topical Powder) 1 gm TOP Q8H [facility] Last Admin: 07/26/17 12:28 Dose: 1 mg Nystatin/Triamcinolone Acetonide (Nystatin/Triamcinolone Cream) 1 ea TOP BID [facility] Last Admin: 07/26/17 12:27 Dose: 1 mg Ondansetron HCl (Zofran Tab) 4 mg PO Q6 PRN PRN Reason: Nausea/Vomiting Pantoprazole Sodium (Protonix Inj) 40 mg IVP Q12 [facility] Last Admin: 07/26/17 10:40 Dose: 40 mg Polyethylene Glycol (Miralax) 17 gm PO DAILY [facility] Last Admin: 07/26/17 10:30 Dose: 17 gm - Labs Labs: 07/26/17 08:28 07/26/17 08:28 PT 10.3 Seconds (9.9-11.8) 07/19/17 19:00 INR 0.95 (0.93-1.08) 07/19/17 19:00 APTT 27.0 Seconds (23.7-30.8) 07/19/17 19:00 - Constitutional Appears: No Acute Distress - Head Exam Additional comments: S/P craniotomy, dressing dry and intact - Eye Exam Eye Exam: absent: Scleral icterus - ENT Exam ENT Exam: Mucous Membranes Moist - Respiratory Exam Respiratory Exam: NORMAL BREATHING PATTERN. absent: Respiratory Distress - Cardiovascular Exam Cardiovascular Exam: +S1, +S2 - GI/Abdominal Exam GI & Abdominal Exam: Soft, Normal Bowel Sounds. absent: Guarding, Tenderness, Rebound - Extremities Exam Extremities Exam: Normal Capillary Refill. absent: Calf Tenderness, Pedal Edema - Neurological Exam Neurological Exam: Alert, Awake, Oriented x3 Additional comments: left upper/lower extremity weakness - Psychiatric Exam Psychiatric exam: Normal Affect, Normal Mood - Skin Skin Exam: Dry, Warm Assessment and Plan - Assessment and Plan (Free Text) Assessment: Assessment: 67-year-old female with history of uterine cancer status post chemoradiation and hysterectomy, admitted with left-sided weakness and found to have large brain mass Status post craniotomy with evacuation of cystic mass Constipation Intermittent episodes of dysphagia, heartburn Anemia Hypertension Dyslipidemia Plan: NPO, diet as per surgery Continue PPI as patient is on steroids Monitor H&H on Decadron on bowel regimen of MiraLAX and lactulose, monitor output Seen and discussed with Dr. Coto <Irma Coto V - Last Filed: 07/26/17 23:13> Objective - Vital Signs/Intake and Output Vital Signs (last 24 hours): Temp Pulse Resp BP Pulse Ox 97.9 F 79 18 106/38 L 95 07/26/17 18:00 07/26/17 18:20 07/26/17 18:20 07/26/17 18:01 07/26/17 18:20 Intake and Output: 07/26/17 07/27/17 18:59 06:59 Intake Total 1500 Output Total 1200 Balance 300 - Medications Medications: Current Medications Al Hydrox/Mg Hydrox/Simethicone (Maalox Plus 30 Ml) 30 ml PO Q8 [facility] Last Admin: 07/26/17 22:00 Dose: 30 ml Albuterol/Ipratropium (Duoneb 3 Mg/0.5 Mg (3 Ml) Ud) 3 ml IH Q2H PRN PRN Reason: Shortness of Breath Atorvastatin Calcium (Lipitor) 40 mg PO DAILY [facility] Last Admin: 07/26/17 10:45 Dose: 40 mg Benzocaine/Menthol (Cepacol Sore Throat) 1 ryann MT Q2H PRN PRN Reason: Sore Throat Dexamethasone (Decadron Inj) 4 mg IVP Q12 [facility] Last Admin: 07/26/17 22:09 Dose: 4 mg Escitalopram Oxalate (Lexapro) 10 mg PO DAILY [facility] Last Admin: 07/26/17 10:40 Dose: 10 mg Gabapentin (Neurontin) 300 mg PO TID [facility] PRN Reason: Protocol Last Admin: 07/26/17 10:15 Dose: 300 mg Dextrose/Sodium Chloride (Dextrose 5%/0.9% Ns 1000 Ml) 1,000 mls @ 75 mls/hr IV .[id number] [facility] Last Admin: 07/26/17 12:22 Dose: 75 mls/hr Acetaminophen (Ofirmev) 1,000 mg in 100 mls @ 400 mls/hr IVPB Q6H PRN PRN Reason: Pain, moderate (4-7) Stop: 07/28/17 09:16 Last Admin: 07/26/17 22:07 Dose: 400 mls/hr Insulin Detemir (Levemir) 10 unit SC HS [facility] Last Admin: 07/26/17 22:01 Dose: 10 unit Insulin Human Lispro (Humalog Med) 0 units SC ACHS [facility] PRN Reason: Protocol Last Admin: 07/26/17 21:57 Dose: 3 units Lisinopril (Zestril) 5 mg PO DAILY [facility] Last Admin: 07/26/17 11:16 Dose: 5 mg Metoprolol Succinate (Toprol Xl) 25 mg PO BRK [facility] Last Admin: 07/26/17 08:07 Dose: Not Given Metoprolol Tartrate (Lopressor) 5 mg IVP Q6 PRN PRN Reason: Systolic Blood Pressure Morphine Sulfate (Morphine) 2 mg IVP Q15M PRN PRN Reason: Pain, moderate (4-7) Nystatin (Nystop Topical Powder) 1 gm TOP Q8H [facility] Last Admin: 07/26/17 19:30 Dose: 1 mg Nystatin/Triamcinolone Acetonide (Nystatin/Triamcinolone Cream) 1 ea TOP BID [facility] Last Admin: 07/26/17 12:27 Dose: 1 mg Ondansetron HCl (Zofran Tab) 4 mg PO Q6 PRN PRN Reason: Nausea/Vomiting Pantoprazole Sodium (Protonix Inj) 40 mg IVP Q12 [facility] Last Admin: 07/26/17 22:08 Dose: 40 mg Polyethylene Glycol (Miralax) 17 gm PO DAILY [facility] Last Admin: 07/26/17 10:30 Dose: 17 gm - Labs Labs: 07/26/17 08:28 07/26/17 08:28 PT 10.3 Seconds (9.9-11.8) 07/19/17 19:00 INR 0.95 (0.93-1.08) 07/19/17 19:00 APTT 27.0 Seconds (23.7-30.8) 07/19/17 19:00 Attending/Attestation - Attestation I have personally seen and examined this patient.: Yes I have fully participated in the care of the patient.: Yes I have reviewed all pertinent clinical information, including history, physical exam and plan: Yes Notes (Text): This patient was seen and evaluated here earlier. This is an addendum to the GE progress report dictated by Caitlin oleary examination abdomen soft there was no tenderness hemoglobin remained stable. On miralax on high-dose PPI and follow up on the hemoglobin and hematocrit
--- NOTE | 2017-07-26 13:54 | CP.PCM.PN ---
<BulmarojeanaEverett - Last Filed: 07/26/17 13:50> Subjective - Date & Time of Evaluation Date of Evaluation: 07/26/17 Time of Evaluation: 13:51 - Subjective Subjective: Patient has been seen and examined at bedside in CCU. She is status post craniotomy with excisional biopsy. Reports weakness is unchanged. Denies any headache, neck pain, changes in vision, SOB, CP, changes in urination, N/V/D. Complains of pain at surgical site. Objective - Vital Signs/Intake and Output Vital Signs (last 24 hours): Temp Pulse Resp BP Pulse Ox 97.5 F L 78 19 113/57 L 95 07/26/17 12:00 07/26/17 13:40 07/26/17 13:40 07/26/17 13:01 07/26/17 13:40 Intake and Output: 07/26/17 07/26/17 06:59 18:59 Intake Total 900 Output Total 1150 Balance -250 - Medications Medications: Current Medications Al Hydrox/Mg Hydrox/Simethicone (Maalox Plus 30 Ml) 30 ml PO Q8 [facility] Last Admin: 07/26/17 05:17 Dose: 30 ml Albuterol/Ipratropium (Duoneb 3 Mg/0.5 Mg (3 Ml) Ud) 3 ml IH Q2H PRN PRN Reason: Shortness of Breath Atorvastatin Calcium (Lipitor) 40 mg PO DAILY [facility] Last Admin: 07/26/17 10:45 Dose: 40 mg Benzocaine/Menthol (Cepacol Sore Throat) 1 ryann MT Q2H PRN PRN Reason: Sore Throat Dexamethasone (Decadron Inj) 4 mg IVP Q8 [facility] Last Admin: 07/26/17 05:17 Dose: 4 mg Escitalopram Oxalate (Lexapro) 10 mg PO DAILY [facility] Last Admin: 07/26/17 10:40 Dose: 10 mg Gabapentin (Neurontin) 300 mg PO TID [facility] PRN Reason: Protocol Last Admin: 07/26/17 10:15 Dose: 300 mg Dextrose/Sodium Chloride (Dextrose 5%/0.9% Ns 1000 Ml) 1,000 mls @ 75 mls/hr IV .[id number] [facility] Last Admin: 07/26/17 12:22 Dose: 75 mls/hr Acetaminophen (Ofirmev) 1,000 mg in 100 mls @ 400 mls/hr IVPB Q6H PRN PRN Reason: Pain, moderate (4-7) Stop: 07/28/17 09:16 Last Admin: 07/26/17 11:14 Dose: 400 mls/hr Insulin Detemir (Levemir) 10 unit SC HS [facility] Last Admin: 07/24/17 21:49 Dose: 10 unit Insulin Human Lispro (Humalog Med) 0 units SC ACHS [facility] PRN Reason: Protocol Last Admin: 07/26/17 12:25 Dose: 1 units Lisinopril (Zestril) 5 mg PO DAILY [facility] Last Admin: 07/26/17 11:16 Dose: 5 mg Metoprolol Succinate (Toprol Xl) 25 mg PO BRK [facility] Last Admin: 07/26/17 08:07 Dose: Not Given Metoprolol Tartrate (Lopressor) 5 mg IVP Q6 PRN PRN Reason: Systolic Blood Pressure Morphine Sulfate (Morphine) 2 mg IVP Q15M PRN PRN Reason: Pain, moderate (4-7) Nystatin (Nystop Topical Powder) 1 gm TOP Q8H [facility] Last Admin: 07/26/17 12:28 Dose: 1 mg Nystatin/Triamcinolone Acetonide (Nystatin/Triamcinolone Cream) 1 ea TOP BID [facility] Last Admin: 07/26/17 12:27 Dose: 1 mg Ondansetron HCl (Zofran Tab) 4 mg PO Q6 PRN PRN Reason: Nausea/Vomiting Pantoprazole Sodium (Protonix Inj) 40 mg IVP Q12 [facility] Last Admin: 07/26/17 10:40 Dose: 40 mg Polyethylene Glycol (Miralax) 17 gm PO DAILY [facility] Last Admin: 07/26/17 10:30 Dose: 17 gm - Labs Labs: 07/26/17 08:28 07/26/17 08:28 PT 10.3 Seconds (9.9-11.8) 07/19/17 19:00 INR 0.95 (0.93-1.08) 07/19/17 19:00 APTT 27.0 Seconds (23.7-30.8) 07/19/17 19:00 Assessment and Plan - Assessment and Plan (Free Text) Assessment: 67 F with PMH of uterine cancer s/p hysterectomy, chemotherapy (stopped due to insurance), DM-2, HTN, dyslipidemia who presented s/p fall and found to have left sided weakness. MRI brain showed cystic mass which can be primary brain tumor vs metastatic. 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 S/P craniotomy with excisional biopsy. -Continue Neuro check -Continue seizure precautions -Continue IV Decadron as Per Neurology. -Transfer to Tele per CCU -F/U on Neurosurgery recommendations. Neurology, Neuro-surgery and Oncology evaluation is appreciated. Leukocytosis. -likely 2/2 to steroids. Patient is afebrile -will cont. to monitor. Constipation -Miralax and Lactulose HTN -BP 108/65 -Continue Lisinopril and Metoprolol -Will monitor blood pressure and adjust medications as needed. DM - Insulin Detemir 10 Units SC HS. Will continue to monitor blood glucose levels. -Patient is on Decadron -Continue sliding scale coverage -Will reassess blood glucose medications in the morning and modify accordingly. DVT Prophylaxis -continue SCD's Dispo: Keep NPO per surgery. Will keep miralax and lactulose for constipation. Patient seen, examined, and reviewed with Attending Everett Alva PGY-1 <Phyllis Jonas - Last Filed: 07/26/17 18:22> Objective - Vital Signs/Intake and Output Vital Signs (last 24 hours): Temp Pulse Resp BP Pulse Ox 97.5 F L 75 19 99/58 L 96 07/26/17 12:00 07/26/17 17:10 07/26/17 17:10 07/26/17 14:01 07/26/17 17:10 Intake and Output: 07/26/17 07/26/17 06:59 18:59 Intake Total 900 Output Total 1150 Balance -250 - Medications Medications: Current Medications Al Hydrox/Mg Hydrox/Simethicone (Maalox Plus 30 Ml) 30 ml PO Q8 [facility] Last Admin: 07/26/17 05:17 Dose: 30 ml Albuterol/Ipratropium (Duoneb 3 Mg/0.5 Mg (3 Ml) Ud) 3 ml IH Q2H PRN PRN Reason: Shortness of Breath Atorvastatin Calcium (Lipitor) 40 mg PO DAILY [facility] Last Admin: 07/26/17 10:45 Dose: 40 mg Benzocaine/Menthol (Cepacol Sore Throat) 1 ryann MT Q2H PRN PRN Reason: Sore Throat Dexamethasone (Decadron Inj) 4 mg IVP Q8 [facility] Last Admin: 07/26/17 15:54 Dose: 4 mg Escitalopram Oxalate (Lexapro) 10 mg PO DAILY [facility] Last Admin: 07/26/17 10:40 Dose: 10 mg Gabapentin (Neurontin) 300 mg PO TID [facility] PRN Reason: Protocol Last Admin: 07/26/17 10:15 Dose: 300 mg Dextrose/Sodium Chloride (Dextrose 5%/0.9% Ns 1000 Ml) 1,000 mls @ 75 mls/hr IV .[id number] [facility] Last Admin: 07/26/17 12:22 Dose: 75 mls/hr Acetaminophen (Ofirmev) 1,000 mg in 100 mls @ 400 mls/hr IVPB Q6H PRN PRN Reason: Pain, moderate (4-7) Stop: 07/28/17 09:16 Last Admin: 07/26/17 11:14 Dose: 400 mls/hr Insulin Detemir (Levemir) 10 unit SC HS [facility] Last Admin: 07/24/17 21:49 Dose: 10 unit Insulin Human Lispro (Humalog Med) 0 units SC ACHS [facility] PRN Reason: Protocol Last Admin: 07/26/17 12:25 Dose: 1 units Lisinopril (Zestril) 5 mg PO DAILY [facility] Last Admin: 07/26/17 11:16 Dose: 5 mg Metoprolol Succinate (Toprol Xl) 25 mg PO BRK [facility] Last Admin: 07/26/17 08:07 Dose: Not Given Metoprolol Tartrate (Lopressor) 5 mg IVP Q6 PRN PRN Reason: Systolic Blood Pressure Morphine Sulfate (Morphine) 2 mg IVP Q15M PRN PRN Reason: Pain, moderate (4-7) Nystatin (Nystop Topical Powder) 1 gm TOP Q8H [facility] Last Admin: 07/26/17 12:28 Dose: 1 mg Nystatin/Triamcinolone Acetonide (Nystatin/Triamcinolone Cream) 1 ea TOP BID [facility] Last Admin: 07/26/17 12:27 Dose: 1 mg Ondansetron HCl (Zofran Tab) 4 mg PO Q6 PRN PRN Reason: Nausea/Vomiting Pantoprazole Sodium (Protonix Inj) 40 mg IVP Q12 [facility] Last Admin: 07/26/17 10:40 Dose: 40 mg Polyethylene Glycol (Miralax) 17 gm PO DAILY [facility] Last Admin: 07/26/17 10:30 Dose: 17 gm - Labs Labs: 07/26/17 08:28 07/26/17 08:28 PT 10.3 Seconds (9.9-11.8) 07/19/17 19:00 INR 0.95 (0.93-1.08) 07/19/17 19:00 APTT 27.0 Seconds (23.7-30.8) 07/19/17 19:00 Attending/Attestation - Attestation I have personally seen and examined this patient.: Yes I have fully participated in the care of the patient.: Yes I have reviewed all pertinent clinical information, including history, physical exam and plan: Yes Notes (Text): 07/26/17 18:20 Attending note; Patient seen and examined with resident in CCU. Patient is a 67 year old female with history of uterine cancer s/p hysterectomy , chemotherapy, DM-2, HTN, dyslipidemia who presented s/p fall and found to have left sided weakness. MRI brain showed cystic mass which can be primary brain tumor vs metastatic. Neurologist and neurosurgeon evaluation appreciated. Status post craniotomy and tumor removal; postop day #1. Neurologically stable. Will start regular diet. PT evaluation requested. Anemia; stable. Monitor closely. Hypertension/diabetes; continue Levemir. Blood pressure is Acceptable. Upon discharge patient will follow up with PMD. Harinder Hercules. Transfer out of ICU.
[2017-07-26] MEDS: Insulin Detemir 100 units/ml Vial (Levemir) SC SCH (22:01)
[2017-07-27] MEDS: Nystatin 100,000 Units/gm Topical Pow(15 gm) TOP SCH ×2 (04:22→18:34)
[2017-07-27 06:56] LABS: ALB/GLOB RATIO 1.3 (1.1-1.8); ALKALINE PHOSPHATASE 81 U/L (38-126); ALT/SGPT 40 U/L (7-56); AST/SGOT 17 U/L (14-36); BILIRUBIN,TOTAL 0.5 mg/dL (0.2-1.3); BLOOD UREA NITROGEN 33 mg/dL (7-21); CALCIUM 8.9 mg/dL (8.4-10.5); CARBON DIOXIDE 27 mmol/L (21-33); CHLORIDE 102 mmol/L (98-107); GFR AFRICAN-AMERICAN > 60; GLUCOSE,RANDOM 279 mg/dL (70-110); MAGNESIUM 2.3 mg/dL (1.7-2.2); PHOSPHOROUS 3.5 mg/dL (2.5-4.5); POTASSIUM 4.6 mmol/L (3.6-5.0); SODIUM 137 mmol/L (132-148); TOTAL PROTEIN 6.2 g/dL (5.8-8.3)
[2017-07-27 07:20] LABS: GRAN # 10.18 (1.4-6.5); HEMATOCRIT 27.8 % (36.0-48.0); LYMPH # 0.6 (1.2-3.4); MEAN CELL VOLUME 88.3 fl (80.0-105.0); MEAN CORPUSCULAR HEMOGLOBIN 29.2 pg (25.0-35.0); MEAN CORPUSCULAR HGB CONC 33.1 g/dl (31.0-37.0); MEAN PLATELET VOLUME 9.1 fl (7.0-11.0); MONO # 0.5 (0.1-0.6); RED CELL DISTRIBUTION WIDTH 13.1 % (11.5-14.5); WHITE BLOOD COUNT 11.2 10^3/ul (4.5-11.0)
[2017-07-27] MEDS: Insulin Lispro (humaLOG) MEDIUM Coverage SC SCH ×4 (09:24→22:27)
--- NOTE | 2017-07-27 09:50 | CP.PCM.PN ---
Subjective - Date & Time of Evaluation Date of Evaluation: 07/27/17 Time of Evaluation: 09:49 - Subjective Subjective: fully a a ox3 good strength in left arm and leg needs rehab awaiting path ok to transfer to floor the subacute at any time Objective - Vital Signs/Intake and Output Vital Signs (last 24 hours): Temp Pulse Resp BP Pulse Ox 99.2 F 70 18 138/66 94 L 07/26/17 22:00 07/27/17 01:00 07/27/17 01:00 07/27/17 01:00 07/26/17 20:30 Intake and Output: 07/27/17 07/27/17 06:59 18:59 Intake Total 900 Output Total 1000 Balance -100 - Medications Medications: Current Medications Al Hydrox/Mg Hydrox/Simethicone (Maalox Plus 30 Ml) 30 ml PO Q8 [facility] Last Admin: 07/26/17 22:00 Dose: 30 ml Albuterol/Ipratropium (Duoneb 3 Mg/0.5 Mg (3 Ml) Ud) 3 ml IH Q2H PRN PRN Reason: Shortness of Breath Atorvastatin Calcium (Lipitor) 40 mg PO DAILY [facility] Last Admin: 07/26/17 10:45 Dose: 40 mg Benzocaine/Menthol (Cepacol Sore Throat) 1 ryann MT Q2H PRN PRN Reason: Sore Throat Dexamethasone (Decadron Inj) 4 mg IVP Q12 [facility] Last Admin: 07/26/17 22:09 Dose: 4 mg Escitalopram Oxalate (Lexapro) 10 mg PO DAILY [facility] Last Admin: 07/26/17 10:40 Dose: 10 mg Gabapentin (Neurontin) 300 mg PO TID [facility] PRN Reason: Protocol Last Admin: 07/27/17 04:21 Dose: 300 mg Dextrose/Sodium Chloride (Dextrose 5%/0.9% Ns 1000 Ml) 1,000 mls @ 75 mls/hr IV .[id number] [facility] Last Admin: 07/26/17 12:22 Dose: 75 mls/hr Acetaminophen (Ofirmev) 1,000 mg in 100 mls @ 400 mls/hr IVPB Q6H PRN PRN Reason: Pain, moderate (4-7) Stop: 07/28/17 09:16 Last Admin: 07/26/17 22:07 Dose: 400 mls/hr Insulin Detemir (Levemir) 10 unit SC HS [facility] Last Admin: 07/26/17 22:01 Dose: 10 unit Insulin Human Lispro (Humalog Med) 0 units SC ACHS [facility] PRN Reason: Protocol Last Admin: 07/27/17 09:24 Dose: 7 units Lisinopril (Zestril) 5 mg PO DAILY [facility] Last Admin: 07/26/17 11:16 Dose: 5 mg Metoprolol Succinate (Toprol Xl) 25 mg PO BRK [facility] Last Admin: 07/26/17 08:07 Dose: Not Given Metoprolol Tartrate (Lopressor) 5 mg IVP Q6 PRN PRN Reason: Systolic Blood Pressure Morphine Sulfate (Morphine) 2 mg IVP Q15M PRN PRN Reason: Pain, moderate (4-7) Nystatin (Nystop Topical Powder) 1 gm TOP Q8H [facility] Last Admin: 07/27/17 04:22 Dose: 1 mg Nystatin/Triamcinolone Acetonide (Nystatin/Triamcinolone Cream) 1 ea TOP BID [facility] Last Admin: 07/26/17 12:27 Dose: 1 mg Ondansetron HCl (Zofran Tab) 4 mg PO Q6 PRN PRN Reason: Nausea/Vomiting Pantoprazole Sodium (Protonix Inj) 40 mg IVP Q12 [facility] Last Admin: 07/26/17 22:08 Dose: 40 mg Polyethylene Glycol (Miralax) 17 gm PO DAILY [facility] Last Admin: 07/26/17 10:30 Dose: 17 gm - Labs Labs: 07/27/17 06:15 07/27/17 06:15 PT 10.3 Seconds (9.9-11.8) 07/19/17 19:00 INR 0.95 (0.93-1.08) 07/19/17 19:00 APTT 27.0 Seconds (23.7-30.8) 07/19/17 19:00
[2017-07-27] MEDS: Metoprolol Succinate 25 mg XL Tab PO SCH (09:59)
[2017-07-27] MEDS: Dexamethasone 4 mg/1 ml IVP SCH ×2 (10:00→22:27)
[2017-07-27] MEDS: POLYETHYLENE GLYCOL 3350 17 GM/Dose PACKET PO SCH ×2 (10:03→17:55)
[2017-07-27] MEDS: Nystatin 100,000 Units/ml Oral Susp 5 ml UD PO SCH ×2 (14:13→17:55)
[2017-07-27] MEDS: Alum-Mag Hydrox-Simethicone Susp (30 mL) PO SCH ×2 (14:14→22:28)
--- NOTE | 2017-07-27 14:20 | PN ---
DATE: NEUROLOGY PROGRESS NOTE SUBJECTIVE: The patient is lying on the bed, in no acute distress. She is status post craniotomy for excision of the brain mass. The patient denies having any headaches. Denies any dizziness. PHYSICAL EXAMINATION VITAL SIGNS: Her blood pressure is 140/73, heart rate is 83 per minute, breathing at the rate of 16 per minute, and temperature is 99.2 degrees Fahrenheit. HEENT: Head is normocephalic and atraumatic. NECK: Supple. There are no carotid bruits. LUNGS: Clear. CARDIOVASCULAR: S1 and S2 audible. No murmurs. ABDOMEN: Soft, nontender. Bowel sounds present. NEUROLOGICAL: Mental status: The patient is awake, alert and oriented to time, place, and person. Speech is fluent. Naming and repetition is normal. Memory and cognition appears intact. Cranial nerve examination: Pupils are 4 mm bilaterally reactive to light. Visual carl are full. Extraocular movements are intact. There is slight decreased nasolabial fold on the left side. Motor examination: Tone is normal. Power in the right side is 5/5, power in the left upper extremity is 4/5, power in the left lower extremity is 3-4/5. Plantars are upgoing on the left side. Gait is deferred at the moment. LABORATORY DATA: Labs reviewed show a WBC of 11.2, hemoglobin of 9.2, hematocrit of 27.8, and platelets of . Sodium is 137, potassium 4.6, chloride 102, carbon dioxide content of 27, BUN of 33, creatinine 0.9, and glucose of . IMPRESSION: 1. Right parietal mass, status post craniotomy and resection. 2. Left-sided weakness secondary to above. RECOMMENDATIONS: 1. The patient to be continued on Decadron for a few more days. I have discussed with the attending physician yesterday and decreased the Decadron to 4 mg every 12 hours. 2. The patient to be continued on physical therapy. 3. Please continue other treatment and supportive care. Thank you for the opportunity to participate in the care of this patient. Rachell Lambert MD [facility] # [id number]
[2017-07-27] MEDS: Dextrose 5%/0.9% NS 1,000 ML IV SCH (15:20)
--- NOTE | 2017-07-27 16:14 | CP.PCM.PN ---
<Caitlin Malhotra - Last Filed: 07/27/17 16:13> Subjective - Date & Time of Evaluation Date of Evaluation: 07/27/17 Time of Evaluation: 10:50 - Subjective Subjective: Seen and examined earlier today, the chart is reviewed, denies nausea, vomiting , fever, chills. patient endorses epigastric discomfort, no acute distress. Patient with left-sided weakness. Status post craniotomy postop day #2 Objective - Vital Signs/Intake and Output Vital Signs (last 24 hours): Temp Pulse Resp BP Pulse Ox 97 F L 76 19 119/63 100 07/27/17 09:00 07/27/17 10:52 07/27/17 09:00 07/27/17 10:52 07/27/17 09:00 Intake and Output: 07/27/17 07/27/17 06:59 18:59 Intake Total 900 Output Total 1000 Balance -100 - Medications Medications: Current Medications Al Hydrox/Mg Hydrox/Simethicone (Maalox Plus 30 Ml) 30 ml PO Q8 [facility] Last Admin: 07/27/17 14:14 Dose: 30 ml Albuterol/Ipratropium (Duoneb 3 Mg/0.5 Mg (3 Ml) Ud) 3 ml IH Q2H PRN PRN Reason: Shortness of Breath Atorvastatin Calcium (Lipitor) 40 mg PO DAILY [facility] Last Admin: 07/26/17 10:45 Dose: 40 mg Benzocaine/Menthol (Cepacol Sore Throat) 1 rynan MT Q2H PRN PRN Reason: Sore Throat Dexamethasone (Decadron Inj) 4 mg IVP Q12 [facility] Last Admin: 07/27/17 10:00 Dose: 4 mg Escitalopram Oxalate (Lexapro) 10 mg PO DAILY [facility] Last Admin: 07/27/17 09:59 Dose: 10 mg Gabapentin (Neurontin) 300 mg PO TID [facility] PRN Reason: Protocol Last Admin: 07/27/17 14:12 Dose: 300 mg Dextrose/Sodium Chloride (Dextrose 5%/0.9% Ns 1000 Ml) 1,000 mls @ 75 mls/hr IV .[id number] [facility] Last Admin: 07/27/17 15:20 Dose: 75 mls/hr Acetaminophen (Ofirmev) 1,000 mg in 100 mls @ 400 mls/hr IVPB Q6H PRN PRN Reason: Pain, moderate (4-7) Stop: 07/28/17 09:16 Last Admin: 07/26/17 22:07 Dose: 400 mls/hr Insulin Detemir (Levemir) 10 unit SC HS [facility] Last Admin: 07/26/17 22:01 Dose: 10 unit Insulin Human Lispro (Humalog Med) 0 units SC ACHS [facility] PRN Reason: Protocol Last Admin: 07/27/17 12:25 Dose: 5 units Lisinopril (Zestril) 5 mg PO DAILY [facility] Last Admin: 07/27/17 09:58 Dose: 5 mg Metoprolol Succinate (Toprol Xl) 25 mg PO BRK [facility] Last Admin: 07/27/17 09:59 Dose: 25 mg Metoprolol Tartrate (Lopressor) 5 mg IVP Q6 PRN PRN Reason: Systolic Blood Pressure Morphine Sulfate (Morphine) 2 mg IVP Q15M PRN PRN Reason: Pain, moderate (4-7) Last Admin: 07/27/17 10:00 Dose: 2 mg Nystatin (Nystop Topical Powder) 1 gm TOP Q8H [facility] Last Admin: 07/27/17 04:22 Dose: 1 mg Nystatin (Nystatin Oral Susp) 5 ml PO TID [facility] Last Admin: 07/27/17 14:13 Dose: 5 ml Nystatin/Triamcinolone Acetonide (Nystatin/Triamcinolone Cream) 1 ea TOP BID [facility] Last Admin: 07/26/17 12:27 Dose: 1 mg Ondansetron HCl (Zofran Tab) 4 mg PO Q6 PRN PRN Reason: Nausea/Vomiting Pantoprazole Sodium (Protonix Ec Tab) 40 mg PO Q12 [facility] Polyethylene Glycol (Miralax) 17 gm PO BID [facility] - Labs Labs: 07/27/17 06:15 07/27/17 06:15 PT 10.3 Seconds (9.9-11.8) 07/19/17 19:00 INR 0.95 (0.93-1.08) 07/19/17 19:00 APTT 27.0 Seconds (23.7-30.8) 07/19/17 19:00 - Constitutional Appears: No Acute Distress - Head Exam Additional comments: craniotomy dressing dry and intact - Eye Exam Eye Exam: Normal appearance. absent: Scleral icterus - ENT Exam ENT Exam: Mucous Membranes Moist - Respiratory Exam Respiratory Exam: NORMAL BREATHING PATTERN. absent: Respiratory Distress - Cardiovascular Exam Cardiovascular Exam: +S1, +S2 - GI/Abdominal Exam GI & Abdominal Exam: Soft, Tenderness (epigastric), Normal Bowel Sounds. absent : Guarding, Organomegaly, Rebound - Extremities Exam Extremities Exam: Normal Capillary Refill. absent: Calf Tenderness, Pedal Edema - Neurological Exam Neurological Exam: Alert, Awake, Oriented x3 - Skin Skin Exam: Dry, Warm Assessment and Plan - Assessment and Plan (Free Text) Assessment: Assessment: 67-year-old female with history of uterine cancer status post chemoradiation and hysterectomy, admitted with left-sided weakness and found to have large brain mass Status post craniotomy with evacuation of cystic mass Constipation Intermittent episodes of dysphagia, heartburn, consider oral thrush Anemia Hypertension Dyslipidemia Plan: diet as tolerated Continue PPI as patient is on steroids Monitor H&H on Decadron on bowel regimen of MiraLAX and lactulose, monitor output start nystatin, spoke to medical team Seen and discussed with Dr. Coto <Irma Coto V - Last Filed: 07/27/17 22:45> Objective - Vital Signs/Intake and Output Vital Signs (last 24 hours): Temp Pulse Resp BP Pulse Ox 98 F 68 22 158/74 H 97 07/27/17 16:00 07/27/17 16:00 07/27/17 16:00 07/27/17 16:00 07/27/17 16:00 Intake and Output: 07/27/17 07/28/17 18:59 06:59 Intake Total 900 Output Total 1000 Balance -100 - Medications Medications: Current Medications Al Hydrox/Mg Hydrox/Simethicone (Maalox Plus 30 Ml) 30 ml PO Q8 [facility] Last Admin: 07/27/17 14:14 Dose: 30 ml Albuterol/Ipratropium (Duoneb 3 Mg/0.5 Mg (3 Ml) Ud) 3 ml IH Q2H PRN PRN Reason: Shortness of Breath Atorvastatin Calcium (Lipitor) 40 mg PO DAILY [facility] Last Admin: 07/26/17 10:45 Dose: 40 mg Benzocaine/Menthol (Cepacol Sore Throat) 1 ryann MT Q2H PRN PRN Reason: Sore Throat Dexamethasone (Decadron Inj) 4 mg IVP Q12 [facility] Last Admin: 07/27/17 10:00 Dose: 4 mg Escitalopram Oxalate (Lexapro) 10 mg PO DAILY [facility] Last Admin: 07/27/17 09:59 Dose: 10 mg Gabapentin (Neurontin) 300 mg PO TID [facility] PRN Reason: Protocol Last Admin: 07/27/17 17:57 Dose: 300 mg Dextrose/Sodium Chloride (Dextrose 5%/0.9% Ns 1000 Ml) 1,000 mls @ 75 mls/hr IV .[id number] [facility] Last Admin: 07/27/17 15:20 Dose: 75 mls/hr Acetaminophen (Ofirmev) 1,000 mg in 100 mls @ 400 mls/hr IVPB Q6H PRN PRN Reason: Pain, moderate (4-7) Stop: 07/28/17 09:16 Last Admin: 07/26/17 22:07 Dose: 400 mls/hr Insulin Detemir (Levemir) 10 unit SC HS [facility] Last Admin: 07/26/17 22:01 Dose: 10 unit Insulin Human Lispro (Humalog Med) 0 units SC ACHS [facility] PRN Reason: Protocol Last Admin: 07/27/17 17:13 Dose: 7 units Lisinopril (Zestril) 5 mg PO DAILY [facility] Last Admin: 07/27/17 09:58 Dose: 5 mg Metoprolol Succinate (Toprol Xl) 25 mg PO BRK [facility] Last Admin: 07/27/17 09:59 Dose: 25 mg Metoprolol Tartrate (Lopressor) 5 mg IVP Q6 PRN PRN Reason: Systolic Blood Pressure Morphine Sulfate (Morphine) 2 mg IVP Q15M PRN PRN Reason: Pain, moderate (4-7) Last Admin: 07/27/17 10:00 Dose: 2 mg Nystatin (Nystop Topical Powder) 1 gm TOP Q8H [facility] Last Admin: 07/27/17 18:34 Dose: 1 applic Nystatin (Nystatin Oral Susp) 5 ml PO TID [facility] Last Admin: 07/27/17 17:55 Dose: 5 ml Nystatin/Triamcinolone Acetonide (Nystatin/Triamcinolone Cream) 1 ea TOP BID [facility] Last Admin: 07/27/17 17:55 Dose: 1 applic Ondansetron HCl (Zofran Tab) 4 mg PO Q6 PRN PRN Reason: Nausea/Vomiting Pantoprazole Sodium (Protonix Ec Tab) 40 mg PO Q12 [facility] Polyethylene Glycol (Miralax) 17 gm PO BID [facility] Last Admin: 07/27/17 17:55 Dose: 17 gm - Labs Labs: 07/27/17 06:15 07/27/17 06:15 PT 10.3 Seconds (9.9-11.8) 07/19/17 19:00 INR 0.95 (0.93-1.08) 07/19/17 19:00 APTT 27.0 Seconds (23.7-30.8) 07/19/17 19:00 Attending/Attestation - Attestation I have personally seen and examined this patient.: Yes I have fully participated in the care of the patient.: Yes I have reviewed all pertinent clinical information, including history, physical exam and plan: Yes Notes (Text): This is an addendum to GI progress report dictated by Caitlin Malhotra APN.The patient was seen and examined earlier. Medical records, lab studies, imagings were reviewed. Last 24 hours events reviewed. Agreed with the above treatment plan as outlined in Caitlin Malhotra NP's notes the with the addition of the following abdomen soft no tenderness nno bowel movements for the last 2 days Increase MiraLAX to twice a day Continue high-dose PPI as the patient is on steroid history of anemia and dysphagia Follow-up hemoglobin and hematocrit 07/27/17 22:30
--- NOTE | 2017-07-27 16:15 | CP.PCM.PN ---
<Everett Alva - Last Filed: 07/27/17 16:12> Subjective - Date & Time of Evaluation Date of Evaluation: 07/27/17 Time of Evaluation: 10:00 - Subjective Subjective: Patient seen and examined. Complains of head pain at surgical site and constipation x 4 days. Denies fevers, chills, CP, SOB, or abdominal pain. Objective - Vital Signs/Intake and Output Vital Signs (last 24 hours): Temp Pulse Resp BP Pulse Ox 97 F L 76 19 119/63 100 07/27/17 09:00 07/27/17 10:52 07/27/17 09:00 07/27/17 10:52 07/27/17 09:00 Intake and Output: 07/27/17 07/27/17 06:59 18:59 Intake Total 900 Output Total 1000 Balance -100 - Medications Medications: Current Medications Al Hydrox/Mg Hydrox/Simethicone (Maalox Plus 30 Ml) 30 ml PO Q8 [facility] Last Admin: 07/27/17 14:14 Dose: 30 ml Albuterol/Ipratropium (Duoneb 3 Mg/0.5 Mg (3 Ml) Ud) 3 ml IH Q2H PRN PRN Reason: Shortness of Breath Atorvastatin Calcium (Lipitor) 40 mg PO DAILY [facility] Last Admin: 07/26/17 10:45 Dose: 40 mg Benzocaine/Menthol (Cepacol Sore Throat) 1 ryann MT Q2H PRN PRN Reason: Sore Throat Dexamethasone (Decadron Inj) 4 mg IVP Q12 [facility] Last Admin: 07/27/17 10:00 Dose: 4 mg Escitalopram Oxalate (Lexapro) 10 mg PO DAILY [facility] Last Admin: 07/27/17 09:59 Dose: 10 mg Gabapentin (Neurontin) 300 mg PO TID [facility] PRN Reason: Protocol Last Admin: 07/27/17 14:12 Dose: 300 mg Dextrose/Sodium Chloride (Dextrose 5%/0.9% Ns 1000 Ml) 1,000 mls @ 75 mls/hr IV .[id number] [facility] Last Admin: 07/27/17 15:20 Dose: 75 mls/hr Acetaminophen (Ofirmev) 1,000 mg in 100 mls @ 400 mls/hr IVPB Q6H PRN PRN Reason: Pain, moderate (4-7) Stop: 07/28/17 09:16 Last Admin: 07/26/17 22:07 Dose: 400 mls/hr Insulin Detemir (Levemir) 10 unit SC HS [facility] Last Admin: 07/26/17 22:01 Dose: 10 unit Insulin Human Lispro (Humalog Med) 0 units SC ACHS [facility] PRN Reason: Protocol Last Admin: 07/27/17 12:25 Dose: 5 units Lisinopril (Zestril) 5 mg PO DAILY [facility] Last Admin: 07/27/17 09:58 Dose: 5 mg Metoprolol Succinate (Toprol Xl) 25 mg PO BRK [facility] Last Admin: 07/27/17 09:59 Dose: 25 mg Metoprolol Tartrate (Lopressor) 5 mg IVP Q6 PRN PRN Reason: Systolic Blood Pressure Morphine Sulfate (Morphine) 2 mg IVP Q15M PRN PRN Reason: Pain, moderate (4-7) Last Admin: 07/27/17 10:00 Dose: 2 mg Nystatin (Nystop Topical Powder) 1 gm TOP Q8H [facility] Last Admin: 07/27/17 04:22 Dose: 1 mg Nystatin (Nystatin Oral Susp) 5 ml PO TID [facility] Last Admin: 07/27/17 14:13 Dose: 5 ml Nystatin/Triamcinolone Acetonide (Nystatin/Triamcinolone Cream) 1 ea TOP BID [facility] Last Admin: 07/26/17 12:27 Dose: 1 mg Ondansetron HCl (Zofran Tab) 4 mg PO Q6 PRN PRN Reason: Nausea/Vomiting Pantoprazole Sodium (Protonix Ec Tab) 40 mg PO Q12 [facility] Polyethylene Glycol (Miralax) 17 gm PO BID [facility] - Labs Labs: 07/27/17 06:15 07/27/17 06:15 PT 10.3 Seconds (9.9-11.8) 07/19/17 19:00 INR 0.95 (0.93-1.08) 07/19/17 19:00 APTT 27.0 Seconds (23.7-30.8) 07/19/17 19:00 - Constitutional Appears: Well, Non-toxic - Head Exam Head Exam: NORMOCEPHALIC Additional comments: S/p craniotomy, dressings C/D/I - ENT Exam ENT Exam: Mucous Membranes Moist - Respiratory Exam Respiratory Exam: Clear to Ausculation Bilateral. absent: Rales, Rhonchi, Wheezes, Stridor - Cardiovascular Exam Cardiovascular Exam: +S1, +S2 - GI/Abdominal Exam GI & Abdominal Exam: Soft, Normal Bowel Sounds. absent: Distended, Tenderness - Extremities Exam Extremities Exam: Normal Capillary Refill, Normal Inspection. absent: Full ROM , Pedal Edema - Neurological Exam Neurological Exam: Alert, Awake, Oriented x3 Neuro motor strength exam: Left Upper Extremity: 3, Right Upper Extremity: 5, Left Lower Extremity: 2/1, Right Lower Extremity: 5 - Psychiatric Exam Psychiatric exam: Normal Affect, Normal Mood Assessment and Plan - Assessment and Plan (Free Text) Assessment: 67F with PMHx of uterine cancer s/p hysterectomy, chemotherapy (stopped due to insurance), DM-2, HTN, dyslipidemia, who presented s/p fall and found to have left sided weakness. MRI showed cystic mass which can be primary tumor vs metastatic, which was resected by neurosurgical team. Plan: 1. 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 Leukocytosis, improved - 11.2 today, decreased from 13.7 yesterday - likely 2/2 steroids, patient remains afebrile - trend WBCs - Nystatin swish & swallow given for thrush prophylaxis 3. Constipation - Seen by GI team, requests increase in Miralax dosage, BID 4. H/O HTN - BP 140/73 - continue Lisinopril and Metoprolol - Will monitor BP and adjust medications as needed 5. H/O DM - POC glucose = 312 - Pt is on Insulin Detemir 10 units SC HS. Will continue to monitor blood glucose levels. - Patient is on decadron - Continue sliding scale coverage - Will reassess blood glucose medications in the morning and modify accordingly DVT and GI prophylaxis - continue SCD's - Protonix Dispo: Patient is pending transfer to medical floor. Patient will need to go to rehab following d/c. We will follow up up PT/OT recs. Patient seen, reviewed, and examined with Attending Everett Alva PGY-1 <Davon DIETRICH,Roly - Last Filed: 07/28/17 18:11> Objective - Vital Signs/Intake and Output Vital Signs (last 24 hours): Temp Pulse Resp BP Pulse Ox 98.9 F 72 18 131/65 98 07/28/17 16:00 07/28/17 16:00 07/28/17 16:00 07/28/17 16:00 07/28/17 16:00 Intake and Output: 07/28/17 07/28/17 06:59 18:59 Intake Total 945 725 Balance 945 725 - Medications Medications: Current Medications Al Hydrox/Mg Hydrox/Simethicone (Maalox Plus 30 Ml) 30 ml PO Q8 [facility] Last Admin: 07/28/17 14:20 Dose: 30 ml Albuterol/Ipratropium (Duoneb 3 Mg/0.5 Mg (3 Ml) Ud) 3 ml IH Q2H PRN PRN Reason: Shortness of Breath Atorvastatin Calcium (Lipitor) 40 mg PO DAILY [facility] Last Admin: 07/28/17 09:24 Dose: 40 mg Benzocaine/Menthol (Cepacol Sore Throat) 1 ryann MT Q2H PRN PRN Reason: Sore Throat Escitalopram Oxalate (Lexapro) 10 mg PO DAILY [facility] Last Admin: 07/28/17 09:23 Dose: 10 mg Gabapentin (Neurontin) 300 mg PO TID [facility] PRN Reason: Protocol Last Admin: 07/28/17 17:08 Dose: 300 mg Dextrose/Sodium Chloride (Dextrose 5%/0.9% Ns 1000 Ml) 1,000 mls @ 75 mls/hr IV .[id number] [facility] Last Admin: 07/28/17 17:03 Dose: 75 mls/hr Insulin Detemir (Levemir) 10 unit SC HS [facility] Last Admin: 07/27/17 22:29 Dose: 10 unit Insulin Human Lispro (Humalog Med) 0 units SC ACHS [facility] PRN Reason: Protocol Last Admin: 07/28/17 17:04 Dose: 5 units Lisinopril (Zestril) 5 mg PO DAILY [facility] Last Admin: 07/28/17 09:27 Dose: 5 mg Metoprolol Succinate (Toprol Xl) 25 mg PO BRK [facility] Last Admin: 07/28/17 09:27 Dose: 25 mg Metoprolol Tartrate (Lopressor) 5 mg IVP Q6 PRN PRN Reason: Systolic Blood Pressure Morphine Sulfate (Morphine) 2 mg IVP Q15M PRN PRN Reason: Pain, moderate (4-7) Last Admin: 07/27/17 10:00 Dose: 2 mg Nystatin (Nystop Topical Powder) 1 gm TOP Q8H [facility] Last Admin: 07/28/17 11:30 Dose: 1 applic Nystatin (Nystatin Oral Susp) 5 ml PO TID [facility] Last Admin: 07/28/17 17:09 Dose: 5 ml Nystatin/Triamcinolone Acetonide (Nystatin/Triamcinolone Cream) 1 ea TOP BID [facility] Last Admin: 07/28/17 17:09 Dose: 1 applic Ondansetron HCl (Zofran Tab) 4 mg PO Q6 PRN PRN Reason: Nausea/Vomiting Pantoprazole Sodium (Protonix Ec Tab) 40 mg PO Q12 [facility] Last Admin: 07/28/17 09:26 Dose: 40 mg Polyethylene Glycol (Miralax) 17 gm PO BID [facility] Last Admin: 07/28/17 17:08 Dose: 17 gm - Labs Labs: 07/28/17 08:49 07/28/17 08:49 PT 10.3 Seconds (9.9-11.8) 07/19/17 19:00 INR 0.95 (0.93-1.08) 07/19/17 19:00 APTT 27.0 Seconds (23.7-30.8) 07/19/17 19:00 Attending/Attestation - Attestation I have personally seen and examined this patient.: Yes I have fully participated in the care of the patient.: Yes I have reviewed all pertinent clinical information, including history, physical exam and plan: Yes Notes (Text): 07/28/17 18:09 Patient seen and examined with resident. 67 year old female with history of uterine cancer s/p hysterectomy, chemotherapy , DM-2, HTN, dyslipidemia who was admitted with fall and found to have left sided weakness. MRI brain showed cystic mass which can be primary brain tumor vs metastatic. Patient underwent surgery .She remain stable after surgery. Continue IV decadron. EEG is normal. Neurologist and neurosurgeon evaluation appreciated. We will get PT/OT evaluation. Anemia is stable. Upon discharge patient will follow up with PMMickey. Harinder Hercules.
[2017-07-27] MEDS: Nystatin-Triamcinolone Cream(30 gm) TOP SCH (17:55)
[2017-07-27] MEDS: Pantoprazole 40 mg EC Tab PO SCH (22:28)
[2017-07-27] MEDS: Insulin Detemir 100 units/ml Vial (Levemir) SC SCH (22:29)
--- NOTE | 2017-07-28 01:39 | CP.PCM.PN ---
Subjective - Date & Time of Evaluation Date of Evaluation: 07/27/17 Time of Evaluation: 17:00 - Subjective Subjective: Has mild headache post op Objective - Vital Signs/Intake and Output Vital Signs (last 24 hours): Temp Pulse Resp BP Pulse Ox 98 F 68 22 158/74 H 97 07/27/17 16:00 07/27/17 16:00 07/27/17 16:00 07/27/17 16:00 07/27/17 16:00 Intake and Output: 07/27/17 07/28/17 18:59 06:59 Intake Total 900 Output Total 1000 Balance -100 - Medications Medications: Current Medications Al Hydrox/Mg Hydrox/Simethicone (Maalox Plus 30 Ml) 30 ml PO Q8 [facility] Last Admin: 07/27/17 22:28 Dose: 30 ml Albuterol/Ipratropium (Duoneb 3 Mg/0.5 Mg (3 Ml) Ud) 3 ml IH Q2H PRN PRN Reason: Shortness of Breath Atorvastatin Calcium (Lipitor) 40 mg PO DAILY [facility] Last Admin: 07/26/17 10:45 Dose: 40 mg Benzocaine/Menthol (Cepacol Sore Throat) 1 ryann MT Q2H PRN PRN Reason: Sore Throat Dexamethasone (Decadron Inj) 4 mg IVP Q12 [facility] Last Admin: 07/27/17 22:27 Dose: 4 mg Escitalopram Oxalate (Lexapro) 10 mg PO DAILY [facility] Last Admin: 07/27/17 09:59 Dose: 10 mg Gabapentin (Neurontin) 300 mg PO TID [facility] PRN Reason: Protocol Last Admin: 07/27/17 17:57 Dose: 300 mg Dextrose/Sodium Chloride (Dextrose 5%/0.9% Ns 1000 Ml) 1,000 mls @ 75 mls/hr IV .[id number] [facility] Last Admin: 07/27/17 15:20 Dose: 75 mls/hr Acetaminophen (Ofirmev) 1,000 mg in 100 mls @ 400 mls/hr IVPB Q6H PRN PRN Reason: Pain, moderate (4-7) Stop: 07/28/17 09:16 Last Admin: 07/26/17 22:07 Dose: 400 mls/hr Insulin Detemir (Levemir) 10 unit SC HS [facility] Last Admin: 07/27/17 22:29 Dose: 10 unit Insulin Human Lispro (Humalog Med) 0 units SC ACHS [facility] PRN Reason: Protocol Last Admin: 07/27/17 22:27 Dose: Not Given Lisinopril (Zestril) 5 mg PO DAILY [facility] Last Admin: 07/27/17 09:58 Dose: 5 mg Metoprolol Succinate (Toprol Xl) 25 mg PO BRK [facility] Last Admin: 07/27/17 09:59 Dose: 25 mg Metoprolol Tartrate (Lopressor) 5 mg IVP Q6 PRN PRN Reason: Systolic Blood Pressure Morphine Sulfate (Morphine) 2 mg IVP Q15M PRN PRN Reason: Pain, moderate (4-7) Last Admin: 07/27/17 10:00 Dose: 2 mg Nystatin (Nystop Topical Powder) 1 gm TOP Q8H [facility] Last Admin: 07/27/17 18:34 Dose: 1 applic Nystatin (Nystatin Oral Susp) 5 ml PO TID [facility] Last Admin: 07/27/17 17:55 Dose: 5 ml Nystatin/Triamcinolone Acetonide (Nystatin/Triamcinolone Cream) 1 ea TOP BID [facility] Last Admin: 07/27/17 17:55 Dose: 1 applic Ondansetron HCl (Zofran Tab) 4 mg PO Q6 PRN PRN Reason: Nausea/Vomiting Pantoprazole Sodium (Protonix Ec Tab) 40 mg PO Q12 [facility] Last Admin: 07/27/17 22:28 Dose: 40 mg Polyethylene Glycol (Miralax) 17 gm PO BID [facility] Last Admin: 07/27/17 17:55 Dose: 17 gm - Labs Labs: 07/27/17 06:15 07/27/17 06:15 PT 10.3 Seconds (9.9-11.8) 07/19/17 19:00 INR 0.95 (0.93-1.08) 07/19/17 19:00 APTT 27.0 Seconds (23.7-30.8) 07/19/17 19:00 - Head Exam Head Exam: ATRAUMATIC - Eye Exam Eye Exam: Normal appearance - ENT Exam ENT Exam: Mucous Membranes Dry - Respiratory Exam Respiratory Exam: NORMAL BREATHING PATTERN - Cardiovascular Exam Cardiovascular Exam: +S1, +S2 - GI/Abdominal Exam GI & Abdominal Exam: Normal Bowel Sounds Assessment and Plan (1) Brain mass Assessment & Plan: s/p excision f/u path Status: Acute (2) Anemia Assessment & Plan: chronic disease Status: Acute
--- NOTE | 2017-07-28 01:41 | CP.PCM.PN ---
Subjective - Date & Time of Evaluation Date of Evaluation: 07/26/17 Time of Evaluation: 13:00 - Subjective Subjective: Has some post op pain. Objective - Vital Signs/Intake and Output Vital Signs (last 24 hours): Temp Pulse Resp BP Pulse Ox 98 F 68 22 158/74 H 97 07/27/17 16:00 07/27/17 16:00 07/27/17 16:00 07/27/17 16:00 07/27/17 16:00 Intake and Output: 07/27/17 07/28/17 18:59 06:59 Intake Total 900 Output Total 1000 Balance -100 - Medications Medications: Current Medications Al Hydrox/Mg Hydrox/Simethicone (Maalox Plus 30 Ml) 30 ml PO Q8 [facility] Last Admin: 07/27/17 22:28 Dose: 30 ml Albuterol/Ipratropium (Duoneb 3 Mg/0.5 Mg (3 Ml) Ud) 3 ml IH Q2H PRN PRN Reason: Shortness of Breath Atorvastatin Calcium (Lipitor) 40 mg PO DAILY [facility] Last Admin: 07/26/17 10:45 Dose: 40 mg Benzocaine/Menthol (Cepacol Sore Throat) 1 ryann MT Q2H PRN PRN Reason: Sore Throat Dexamethasone (Decadron Inj) 4 mg IVP Q12 [facility] Last Admin: 07/27/17 22:27 Dose: 4 mg Escitalopram Oxalate (Lexapro) 10 mg PO DAILY [facility] Last Admin: 07/27/17 09:59 Dose: 10 mg Gabapentin (Neurontin) 300 mg PO TID [facility] PRN Reason: Protocol Last Admin: 07/27/17 17:57 Dose: 300 mg Dextrose/Sodium Chloride (Dextrose 5%/0.9% Ns 1000 Ml) 1,000 mls @ 75 mls/hr IV .[id number] [facility] Last Admin: 07/27/17 15:20 Dose: 75 mls/hr Acetaminophen (Ofirmev) 1,000 mg in 100 mls @ 400 mls/hr IVPB Q6H PRN PRN Reason: Pain, moderate (4-7) Stop: 07/28/17 09:16 Last Admin: 07/26/17 22:07 Dose: 400 mls/hr Insulin Detemir (Levemir) 10 unit SC HS [facility] Last Admin: 07/27/17 22:29 Dose: 10 unit Insulin Human Lispro (Humalog Med) 0 units SC ACHS [facility] PRN Reason: Protocol Last Admin: 07/27/17 22:27 Dose: Not Given Lisinopril (Zestril) 5 mg PO DAILY [facility] Last Admin: 07/27/17 09:58 Dose: 5 mg Metoprolol Succinate (Toprol Xl) 25 mg PO BRK [facility] Last Admin: 07/27/17 09:59 Dose: 25 mg Metoprolol Tartrate (Lopressor) 5 mg IVP Q6 PRN PRN Reason: Systolic Blood Pressure Morphine Sulfate (Morphine) 2 mg IVP Q15M PRN PRN Reason: Pain, moderate (4-7) Last Admin: 07/27/17 10:00 Dose: 2 mg Nystatin (Nystop Topical Powder) 1 gm TOP Q8H [facility] Last Admin: 07/27/17 18:34 Dose: 1 applic Nystatin (Nystatin Oral Susp) 5 ml PO TID [facility] Last Admin: 07/27/17 17:55 Dose: 5 ml Nystatin/Triamcinolone Acetonide (Nystatin/Triamcinolone Cream) 1 ea TOP BID [facility] Last Admin: 07/27/17 17:55 Dose: 1 applic Ondansetron HCl (Zofran Tab) 4 mg PO Q6 PRN PRN Reason: Nausea/Vomiting Pantoprazole Sodium (Protonix Ec Tab) 40 mg PO Q12 [facility] Last Admin: 07/27/17 22:28 Dose: 40 mg Polyethylene Glycol (Miralax) 17 gm PO BID [facility] Last Admin: 07/27/17 17:55 Dose: 17 gm - Labs Labs: 07/27/17 06:15 07/27/17 06:15 PT 10.3 Seconds (9.9-11.8) 07/19/17 19:00 INR 0.95 (0.93-1.08) 07/19/17 19:00 APTT 27.0 Seconds (23.7-30.8) 07/19/17 19:00 - Eye Exam Eye Exam: Normal appearance - ENT Exam ENT Exam: Mucous Membranes Dry - Respiratory Exam Respiratory Exam: NORMAL BREATHING PATTERN - Cardiovascular Exam Cardiovascular Exam: +S1, +S2 - GI/Abdominal Exam GI & Abdominal Exam: Normal Bowel Sounds Assessment and Plan (1) Brain mass Assessment & Plan: s/p excision f/u path Status: Acute (2) Anemia Assessment & Plan: chronic disease Status: Acute
[2017-07-28] MEDS: Alum-Mag Hydrox-Simethicone Susp (30 mL) PO SCH ×3 (05:44→22:21)
[2017-07-28] MEDS: Dextrose 5%/0.9% NS 1,000 ML IV SCH ×2 (05:46→17:03)
[2017-07-28] MEDS: Insulin Lispro (humaLOG) MEDIUM Coverage SC SCH ×4 (07:47→22:00)
[2017-07-28 09:01] LABS: GRAN # 8.96 (1.4-6.5); GRAN % 89.7 % (50.0-68.0); HEMATOCRIT 27.8 % (36.0-48.0); LYMPH # 0.6 (1.2-3.4); LYMPH % 6.2 % (22.0-35.0); MEAN CORPUSCULAR HEMOGLOBIN 29.1 pg (25.0-35.0); MEAN CORPUSCULAR HGB CONC 33.1 g/dl (31.0-37.0); MEAN PLATELET VOLUME 8.9 fl (7.0-11.0); MONO # 0.4 (0.1-0.6); MONO % 4.1 % (1.0-6.0); RED CELL DISTRIBUTION WIDTH 12.7 % (11.5-14.5)
[2017-07-28 09:09] LABS: ALB/GLOB RATIO 1.2 (1.1-1.8); ALKALINE PHOSPHATASE 73 U/L (38-126); ALT/SGPT 35 U/L (7-56); AST/SGOT 19 U/L (14-36); BILIRUBIN,TOTAL 0.5 mg/dL (0.2-1.3); BLOOD UREA NITROGEN 32 mg/dL (7-21); CARBON DIOXIDE 28 mmol/L (21-33); CHLORIDE 101 mmol/L (98-107); GFR AFRICAN-AMERICAN > 60; GLUCOSE,RANDOM 260 mg/dL (70-110); PHOSPHOROUS 3.6 mg/dL (2.5-4.5); POTASSIUM 4.6 mmol/L (3.6-5.0); SODIUM 136 mmol/L (132-148); TOTAL PROTEIN 6.2 g/dL (5.8-8.3)
[2017-07-28] MEDS: Dexamethasone 4 mg/1 ml IVP SCH (09:21)
[2017-07-28] MEDS: POLYETHYLENE GLYCOL 3350 17 GM/Dose PACKET PO SCH ×2 (09:24→17:08)
[2017-07-28] MEDS: Nystatin 100,000 Units/ml Oral Susp 5 ml UD PO SCH ×3 (09:25→17:09)
[2017-07-28] MEDS: Pantoprazole 40 mg EC Tab PO SCH ×2 (09:26→22:21)
[2017-07-28] MEDS: Nystatin-Triamcinolone Cream(30 gm) TOP SCH ×2 (09:26→17:09)
[2017-07-28] MEDS: Metoprolol Succinate 25 mg XL Tab PO SCH (09:27)
[2017-07-28] MEDS: Nystatin 100,000 Units/gm Topical Pow(15 gm) TOP SCH ×2 (09:30→11:30)
--- NOTE | 2017-07-28 13:21 | PN ---
NEUROLOGY PROGRESS NOTE DATE: SUBJECTIVE: The patient is lying on the bed, in no acute distress. Denies having any headache or dizziness. PHYSICAL EXAMINATION: VITAL SIGNS: Her blood pressure is 152/78, heart rate is 63 per minute, breathing at the rate of 16 per minute, and temperature is 98 degrees Fahrenheit. HEENT: Normocephalic and atraumatic. NECK: Supple. There are no carotid bruits. LUNGS: Clear. CARDIOVASCULAR: S1 and S2 audible. No murmurs. ABDOMEN: Soft and nontender. Bowel sounds are present. NEUROLOGIC: Mental status; the patient is awake, alert, and oriented to time, place, and person. Speech is fluent. Naming and repetition normal. Memory and cognition are intact. Cranial nerve examination; pupils are 3 mm bilaterally reactive to light. Visual carl are full. Extraocular movements are intact. There is mild decrease nasolabial fold on the left side. Tongue is midline. Motor examination: Tone is normal. There is left-sided hemiparesis with power in the left upper extremity is 3-4/5, but in the lower extremity is 2-3/5. Plantars are upgoing on the left side and downgoing on the right side. Gait is deferred at the moment. LABORATORY DATA: Labs reviewed shows WBC of 10.0, hemoglobin 9.2, hematocrit 27.8, and platelets of 196. Sodium is 136, potassium 4.6, chloride of 101, carbon dioxide content of 28, BUN of 32, creatinine 0.8, and glucose of 260. IMPRESSION: 1. Right parietal mass, status post craniotomy resection. 2. Left-sided weakness secondary to above. RECOMMENDATIONS: 1. The patient to have Decadron this morning and after that the Decadron needs to be discontinued. 2. The patient to continue to have physical therapy. 3. The patient had craniotomy resection of the parietal mass done. Pathology is awaited. 4. Oncology is following the patient. 5. Please continue other treatment and supportive care. Thank you for the opportunity to participate in the care of this patient. Rachell Lambert MD
--- NOTE | 2017-07-28 16:03 | CP.PCM.PN ---
<Caitlin Malhotra - Last Filed: 07/28/17 16:01> Subjective - Date & Time of Evaluation Date of Evaluation: 07/28/17 Time of Evaluation: 10:45 - Subjective Subjective: Seen and examined at the bedside this morning, denies nausea, vomiting or overt GI bleed. Occasional epigastric discomfortNo BM 2 days. Patient tolerating oral intake, denies dysphagia. Objective - Vital Signs/Intake and Output Vital Signs (last 24 hours): Temp Pulse Resp BP Pulse Ox 98 F 63 20 152/78 H 100 07/28/17 08:24 07/28/17 09:27 07/28/17 08:24 07/28/17 09:27 07/28/17 08:24 Intake and Output: 07/28/17 07/28/17 06:59 18:59 Intake Total 945 725 Balance 945 725 - Medications Medications: Current Medications Al Hydrox/Mg Hydrox/Simethicone (Maalox Plus 30 Ml) 30 ml PO Q8 [facility] Last Admin: 07/28/17 14:20 Dose: 30 ml Albuterol/Ipratropium (Duoneb 3 Mg/0.5 Mg (3 Ml) Ud) 3 ml IH Q2H PRN PRN Reason: Shortness of Breath Atorvastatin Calcium (Lipitor) 40 mg PO DAILY [facility] Last Admin: 07/28/17 09:24 Dose: 40 mg Benzocaine/Menthol (Cepacol Sore Throat) 1 ryann MT Q2H PRN PRN Reason: Sore Throat Escitalopram Oxalate (Lexapro) 10 mg PO DAILY [facility] Last Admin: 07/28/17 09:23 Dose: 10 mg Gabapentin (Neurontin) 300 mg PO TID [facility] PRN Reason: Protocol Last Admin: 07/28/17 14:20 Dose: 300 mg Dextrose/Sodium Chloride (Dextrose 5%/0.9% Ns 1000 Ml) 1,000 mls @ 75 mls/hr IV .[id number] [facility] Last Admin: 07/28/17 05:46 Dose: 75 mls/hr Insulin Detemir (Levemir) 10 unit SC HS [facility] Last Admin: 07/27/17 22:29 Dose: 10 unit Insulin Human Lispro (Humalog Med) 0 units SC ACHS [facility] PRN Reason: Protocol Last Admin: 07/28/17 12:32 Dose: 5 units Lisinopril (Zestril) 5 mg PO DAILY [facility] Last Admin: 07/28/17 09:27 Dose: 5 mg Metoprolol Succinate (Toprol Xl) 25 mg PO BRK [facility] Last Admin: 07/28/17 09:27 Dose: 25 mg Metoprolol Tartrate (Lopressor) 5 mg IVP Q6 PRN PRN Reason: Systolic Blood Pressure Morphine Sulfate (Morphine) 2 mg IVP Q15M PRN PRN Reason: Pain, moderate (4-7) Last Admin: 07/27/17 10:00 Dose: 2 mg Nystatin (Nystop Topical Powder) 1 gm TOP Q8H [facility] Last Admin: 07/28/17 11:30 Dose: 1 applic Nystatin (Nystatin Oral Susp) 5 ml PO TID [facility] Last Admin: 07/28/17 14:20 Dose: 5 ml Nystatin/Triamcinolone Acetonide (Nystatin/Triamcinolone Cream) 1 ea TOP BID [facility] Last Admin: 07/28/17 09:26 Dose: 1 applic Ondansetron HCl (Zofran Tab) 4 mg PO Q6 PRN PRN Reason: Nausea/Vomiting Pantoprazole Sodium (Protonix Ec Tab) 40 mg PO Q12 [facility] Last Admin: 07/28/17 09:26 Dose: 40 mg Polyethylene Glycol (Miralax) 17 gm PO BID [facility] Last Admin: 07/28/17 09:24 Dose: 17 gm - Labs Labs: 07/28/17 08:49 07/28/17 08:49 PT 10.3 Seconds (9.9-11.8) 07/19/17 19:00 INR 0.95 (0.93-1.08) 07/19/17 19:00 APTT 27.0 Seconds (23.7-30.8) 07/19/17 19:00 - Constitutional Appears: No Acute Distress - Eye Exam Eye Exam: Normal appearance. absent: Scleral icterus - ENT Exam ENT Exam: Mucous Membranes Moist - Respiratory Exam Respiratory Exam: Clear to Ausculation Bilateral, NORMAL BREATHING PATTERN. absent: Respiratory Distress - Cardiovascular Exam Cardiovascular Exam: +S1, +S2 - GI/Abdominal Exam GI & Abdominal Exam: Soft, Normal Bowel Sounds. absent: Guarding, Tenderness, Rebound - Extremities Exam Extremities Exam: Normal Capillary Refill. absent: Calf Tenderness, Pedal Edema - Neurological Exam Neurological Exam: Alert, Awake, Oriented x3 Additional comments: left-sided weakness remains - Skin Skin Exam: Dry (ileum done), Warm Assessment and Plan - Assessment and Plan (Free Text) Assessment: Assessment: 67-year-old female with history of uterine cancer status post chemoradiation and hysterectomy, admitted with left-sided weakness and found to have large brain mass Status post craniotomy with evacuation of cystic mass Constipation Intermittent episodes of dysphagia, heartburn, consider oral thrush Anemia Hypertension Dyslipidemia Plan: diet as tolerated Continue PPI as patient is on steroids Monitor H&H on Decadron continue bowel regimen of MiraLAX and lactulose, monitor output continue nystatin Seen and discussed with Dr. Coto <Irma Coto V - Last Filed: 07/28/17 20:03> Objective - Vital Signs/Intake and Output Vital Signs (last 24 hours): Temp Pulse Resp BP Pulse Ox 98.9 F 72 18 131/65 98 07/28/17 16:00 07/28/17 16:00 07/28/17 16:00 07/28/17 16:00 07/28/17 16:00 Intake and Output: 07/28/17 07/29/17 18:59 06:59 Intake Total 725 Balance 725 - Medications Medications: Current Medications Al Hydrox/Mg Hydrox/Simethicone (Maalox Plus 30 Ml) 30 ml PO Q8 [facility] Last Admin: 07/28/17 14:20 Dose: 30 ml Albuterol/Ipratropium (Duoneb 3 Mg/0.5 Mg (3 Ml) Ud) 3 ml IH Q2H PRN PRN Reason: Shortness of Breath Atorvastatin Calcium (Lipitor) 40 mg PO DAILY [facility] Last Admin: 07/28/17 09:24 Dose: 40 mg Benzocaine/Menthol (Cepacol Sore Throat) 1 ryann MT Q2H PRN PRN Reason: Sore Throat Escitalopram Oxalate (Lexapro) 10 mg PO DAILY [facility] Last Admin: 07/28/17 09:23 Dose: 10 mg Gabapentin (Neurontin) 300 mg PO TID [facility] PRN Reason: Protocol Last Admin: 07/28/17 17:08 Dose: 300 mg Dextrose/Sodium Chloride (Dextrose 5%/0.9% Ns 1000 Ml) 1,000 mls @ 75 mls/hr IV .[id number] [facility] Last Admin: 07/28/17 17:03 Dose: 75 mls/hr Insulin Detemir (Levemir) 10 unit SC HS [facility] Last Admin: 07/27/17 22:29 Dose: 10 unit Insulin Human Lispro (Humalog Med) 0 units SC ACHS [facility] PRN Reason: Protocol Last Admin: 07/28/17 17:04 Dose: 5 units Lisinopril (Zestril) 5 mg PO DAILY [facility] Last Admin: 07/28/17 09:27 Dose: 5 mg Metoprolol Succinate (Toprol Xl) 25 mg PO BRK [facility] Last Admin: 07/28/17 09:27 Dose: 25 mg Metoprolol Tartrate (Lopressor) 5 mg IVP Q6 PRN PRN Reason: Systolic Blood Pressure Morphine Sulfate (Morphine) 2 mg IVP Q15M PRN PRN Reason: Pain, moderate (4-7) Last Admin: 07/27/17 10:00 Dose: 2 mg Nystatin (Nystop Topical Powder) 1 gm TOP Q8H [facility] Last Admin: 07/28/17 11:30 Dose: 1 applic Nystatin (Nystatin Oral Susp) 5 ml PO TID [facility] Last Admin: 07/28/17 17:09 Dose: 5 ml Nystatin/Triamcinolone Acetonide (Nystatin/Triamcinolone Cream) 1 ea TOP BID [facility] Last Admin: 07/28/17 17:09 Dose: 1 applic Ondansetron HCl (Zofran Tab) 4 mg PO Q6 PRN PRN Reason: Nausea/Vomiting Pantoprazole Sodium (Protonix Ec Tab) 40 mg PO Q12 [facility] Last Admin: 07/28/17 09:26 Dose: 40 mg Polyethylene Glycol (Miralax) 17 gm PO BID [facility] Last Admin: 07/28/17 17:08 Dose: 17 gm - Labs Labs: 07/28/17 08:49 07/28/17 08:49 PT 10.3 Seconds (9.9-11.8) 07/19/17 19:00 INR 0.95 (0.93-1.08) 07/19/17 19:00 APTT 27.0 Seconds (23.7-30.8) 07/19/17 19:00 Attending/Attestation - Attestation I have personally seen and examined this patient.: Yes I have fully participated in the care of the patient.: Yes I have reviewed all pertinent clinical information, including history, physical exam and plan: Yes Notes (Text): 07/28/17 20:03 p
--- NOTE | 2017-07-28 21:39 | CP.PCM.PN ---
<BulmarojeanaKadedar - Last Filed: 07/28/17 21:52> Subjective - Date & Time of Evaluation Date of Evaluation: 07/28/17 Time of Evaluation: 12:00 - Subjective Subjective: Patient has been seen and examined. No overnight events reported. She complains of constipation, itching, and pain at surgical site. Denies fever, cp , sob, n/v/d, and changes in urination. Objective - Vital Signs/Intake and Output Vital Signs (last 24 hours): Temp Pulse Resp BP Pulse Ox 98.9 F 72 18 131/65 98 07/28/17 16:00 07/28/17 16:00 07/28/17 16:00 07/28/17 16:00 07/28/17 16:00 Intake and Output: 07/28/17 07/29/17 18:59 06:59 Intake Total 725 Balance 725 - Medications Medications: Current Medications Al Hydrox/Mg Hydrox/Simethicone (Maalox Plus 30 Ml) 30 ml PO Q8 [facility] Last Admin: 07/28/17 14:20 Dose: 30 ml Albuterol/Ipratropium (Duoneb 3 Mg/0.5 Mg (3 Ml) Ud) 3 ml IH Q2H PRN PRN Reason: Shortness of Breath Atorvastatin Calcium (Lipitor) 40 mg PO DAILY [facility] Last Admin: 07/28/17 09:24 Dose: 40 mg Benzocaine/Menthol (Cepacol Sore Throat) 1 ryann MT Q2H PRN PRN Reason: Sore Throat Escitalopram Oxalate (Lexapro) 10 mg PO DAILY [facility] Last Admin: 07/28/17 09:23 Dose: 10 mg Gabapentin (Neurontin) 300 mg PO TID [facility] PRN Reason: Protocol Last Admin: 07/28/17 17:08 Dose: 300 mg Dextrose/Sodium Chloride (Dextrose 5%/0.9% Ns 1000 Ml) 1,000 mls @ 75 mls/hr IV .[id number] [facility] Last Admin: 07/28/17 17:03 Dose: 75 mls/hr Insulin Detemir (Levemir) 10 unit SC HS [facility] Last Admin: 07/27/17 22:29 Dose: 10 unit Insulin Human Lispro (Humalog Med) 0 units SC ACHS [facility] PRN Reason: Protocol Last Admin: 07/28/17 17:04 Dose: 5 units Lisinopril (Zestril) 5 mg PO DAILY [facility] Last Admin: 07/28/17 09:27 Dose: 5 mg Metoprolol Succinate (Toprol Xl) 25 mg PO BRK [facility] Last Admin: 07/28/17 09:27 Dose: 25 mg Metoprolol Tartrate (Lopressor) 5 mg IVP Q6 PRN PRN Reason: Systolic Blood Pressure Morphine Sulfate (Morphine) 2 mg IVP Q15M PRN PRN Reason: Pain, moderate (4-7) Last Admin: 07/27/17 10:00 Dose: 2 mg Nystatin (Nystop Topical Powder) 1 gm TOP Q8H [facility] Last Admin: 07/28/17 11:30 Dose: 1 applic Nystatin (Nystatin Oral Susp) 5 ml PO TID [facility] Last Admin: 07/28/17 17:09 Dose: 5 ml Nystatin/Triamcinolone Acetonide (Nystatin/Triamcinolone Cream) 1 ea TOP BID [facility] Last Admin: 07/28/17 17:09 Dose: 1 applic Ondansetron HCl (Zofran Tab) 4 mg PO Q6 PRN PRN Reason: Nausea/Vomiting Pantoprazole Sodium (Protonix Ec Tab) 40 mg PO Q12 [facility] Last Admin: 07/28/17 09:26 Dose: 40 mg Polyethylene Glycol (Miralax) 17 gm PO BID [facility] Last Admin: 07/28/17 17:08 Dose: 17 gm - Labs Labs: 07/28/17 08:49 07/28/17 08:49 PT 10.3 Seconds (9.9-11.8) 07/19/17 19:00 INR 0.95 (0.93-1.08) 07/19/17 19:00 APTT 27.0 Seconds (23.7-30.8) 07/19/17 19:00 - Constitutional Appears: No Acute Distress - Head Exam Head Exam: NORMAL INSPECTION, NORMOCEPHALIC. absent: ATRAUMATIC Additional comments: surgical site on right parietal region. Wound clean and dry. - Eye Exam Eye Exam: EOMI, Normal appearance - ENT Exam ENT Exam: Mucous Membranes Moist - Respiratory Exam Respiratory Exam: Clear to Ausculation Bilateral, Rhonchi - Cardiovascular Exam Cardiovascular Exam: RRR, +S1, +S2 - GI/Abdominal Exam GI & Abdominal Exam: Soft, Tenderness, Normal Bowel Sounds - Extremities Exam Extremities Exam: absent: Pedal Edema - Neurological Exam Neurological Exam: Alert, Awake, Oriented x3 - Psychiatric Exam Psychiatric exam: Normal Affect, Normal Mood - Skin Skin Exam: Dry, Intact, Normal Color, Warm Assessment and Plan - Assessment and Plan (Free Text) Assessment: 67F with PMHx of uterine cancer s/p hysterectomy, chemotherapy (stopped due to insurance), DM-2, HTN, dyslipidemia, who presented s/p fall and found to have left sided weakness. MRI showed cystic mass which can be primary tumor vs metastatic, which was resected by neurosurgical team. Plan: 1. Left hemiplegia due to right parietal lobe lesion s/p craniotomy with excisional biopsy - continue neuro check - continue seizure precautions - continue IV decadron today per neuro and d/c tomorrow Neurology, neuro-surgery, and oncology evaluation is appreciation 2. Leukocytosis (resolved) - likely 2/2 steroids, patient remains afebrile - trend WBCs - Nystatin swish & swallow given for thrush prophylaxis 3. Constipation - Miralax per GI 4. H/O HTN - BP 131/65 - continue Lisinopril and Metoprolol - Will monitor BP and adjust medications as needed 5. H/O DM - POC glucose = 260 - Pt is on Insulin Detemir 10 units SC HS. Will continue to monitor blood glucose levels. - Patient is on decadron - Continue sliding scale coverage - Will reassess blood glucose medications in the morning and modify accordingly DVT and GI prophylaxis - continue SCD's - Protonix Dispo: PT recommends rehab. Awaiting acute rehab placement. Patient seen, reviewed, and examined with Attending Everett Alva PGY-1 <Davon DIETRICH,[facility] - Last Filed: 07/31/17 16:05> Objective - Vital Signs/Intake and Output Vital Signs (last 24 hours): Temp Pulse Resp BP Pulse Ox 98.1 F 74 20 125/60 95 07/31/17 08:57 07/31/17 09:14 07/31/17 08:57 07/31/17 09:14 07/31/17 08:57 Intake and Output: 07/31/17 07/31/17 06:59 18:59 Intake Total 480 480 Output Total 1 600 Balance 479 -120 - Medications Medications: Current Medications Acetaminophen (Tylenol 325mg Tab) 650 mg PO Q4H PRN PRN Reason: Pain, moderate (4-7) Al Hydrox/Mg Hydrox/Simethicone (Maalox Plus 30 Ml) 30 ml PO Q8 [facility] Last Admin: 07/31/17 13:37 Dose: 30 ml Albuterol/Ipratropium (Duoneb 3 Mg/0.5 Mg (3 Ml) Ud) 3 ml IH Q2H PRN PRN Reason: Shortness of Breath Atorvastatin Calcium (Lipitor) 40 mg PO DAILY [facility] Last Admin: 07/31/17 09:13 Dose: 40 mg Benzocaine/Menthol (Cepacol Sore Throat) 1 ryann MT Q2H PRN PRN Reason: Sore Throat Diphenhydramine HCl (Benadryl) 25 mg PO Q6 PRN PRN Reason: Pruritis Last Admin: 07/30/17 14:15 Dose: 25 mg Escitalopram Oxalate (Lexapro) 10 mg PO DAILY [facility] Last Admin: 07/31/17 09:12 Dose: 10 mg Gabapentin (Neurontin) 300 mg PO TID [facility] PRN Reason: Protocol Last Admin: 07/31/17 13:37 Dose: 300 mg Dextrose/Sodium Chloride (Dextrose 5%/0.9% Ns 1000 Ml) 1,000 mls @ 75 mls/hr IV .[id number] [facility] Last Admin: 07/30/17 14:55 Dose: 75 mls/hr Insulin Detemir (Levemir) 10 unit SC HS [facility] Last Admin: 07/30/17 22:23 Dose: 10 unit Insulin Human Lispro (Humalog Med) 0 units SC ACHS [facility] PRN Reason: Protocol Last Admin: 07/31/17 11:50 Dose: 3 units Lisinopril (Zestril) 5 mg PO DAILY [facility] Last Admin: 07/31/17 09:14 Dose: 5 mg Metoprolol Succinate (Toprol Xl) 25 mg PO BRK [facility] Last Admin: 07/31/17 09:14 Dose: 25 mg Metoprolol Tartrate (Lopressor) 5 mg IVP Q6 PRN PRN Reason: Systolic Blood Pressure Nystatin (Nystop Topical Powder) 1 gm TOP Q8H [facility] Last Admin: 07/31/17 13:38 Dose: 1 applic Nystatin (Nystatin Oral Susp) 5 ml PO TID [facility] Last Admin: 07/31/17 13:37 Dose: 5 ml Nystatin/Triamcinolone Acetonide (Nystatin/Triamcinolone Cream) 1 ea TOP BID [facility] Last Admin: 07/31/17 09:13 Dose: 1 applic Ondansetron HCl (Zofran Tab) 4 mg PO Q6 PRN PRN Reason: Nausea/Vomiting Pantoprazole Sodium (Protonix Ec Tab) 40 mg PO Q12 [facility] Last Admin: 07/31/17 09:14 Dose: 40 mg Polyethylene Glycol (Miralax) 17 gm PO BID [facility] Last Admin: 07/31/17 09:13 Dose: 17 gm - Labs Labs: 07/31/17 06:55 07/31/17 06:55 PT 10.3 Seconds (9.9-11.8) 07/19/17 19:00 INR 0.95 (0.93-1.08) 07/19/17 19:00 APTT 27.0 Seconds (23.7-30.8) 07/19/17 19:00 Attending/Attestation - Attestation I have personally seen and examined this patient.: Yes I have fully participated in the care of the patient.: Yes I have reviewed all pertinent clinical information, including history, physical exam and plan: Yes Notes (Text): 07/31/17 16:02 Patient was seen and examined with medical sales representative. Agreed with resident assessment and plan. 67 yrs old female s/p craniotomy for right Parietal mass,still has left sided weakness improving, Pathology report is not back yet. Patient is off steroid, Physical therapy has recommended [facility], She is awaiting placement. Management plan was discussed in detail with patient Education was provided.
[2017-07-28] MEDS: Insulin Detemir 100 units/ml Vial (Levemir) SC SCH (22:21)
[2017-07-29 07:22] LABS: EOS # 0.2 (0.0-0.7); GRAN # 6.41 (1.4-6.5); GRAN % 80.2 % (50.0-68.0); HEMATOCRIT 28.3 % (36.0-48.0); LYMPH % 12.5 % (22.0-35.0); MEAN CORPUSCULAR HEMOGLOBIN 29.2 pg (25.0-35.0); MEAN CORPUSCULAR HGB CONC 32.9 g/dl (31.0-37.0); MEAN PLATELET VOLUME 8.8 fl (7.0-11.0); MONO # 0.4 (0.1-0.6); MONO % 5.3 % (1.0-6.0); RED CELL DISTRIBUTION WIDTH 12.9 % (11.5-14.5)
[2017-07-29 07:25] LABS: ALB/GLOB RATIO 1.1 (1.1-1.8); ALKALINE PHOSPHATASE 80 U/L (38-126); ALT/SGPT 39 U/L (7-56); AST/SGOT 22 U/L (14-36); BILIRUBIN,TOTAL 0.5 mg/dL (0.2-1.3); BLOOD UREA NITROGEN 27 mg/dL (7-21); CALCIUM 8.9 mg/dL (8.4-10.5); CARBON DIOXIDE 30 mmol/L (21-33); CHLORIDE 101 mmol/L (98-107); GFR AFRICAN-AMERICAN > 60; GLUCOSE,RANDOM 177 mg/dL (70-110); MAGNESIUM 1.9 mg/dL (1.7-2.2); PHOSPHOROUS 3.5 mg/dL (2.5-4.5); SODIUM 138 mmol/L (132-148)
[2017-07-29] MEDS: Insulin Lispro (humaLOG) MEDIUM Coverage SC SCH ×4 (08:37→22:02)
[2017-07-29] MEDS: Metoprolol Succinate 25 mg XL Tab PO SCH (08:42)
[2017-07-29] MEDS: Alum-Mag Hydrox-Simethicone Susp (30 mL) PO SCH ×4 (08:44→22:08)
[2017-07-29] MEDS: Pantoprazole 40 mg EC Tab PO SCH ×2 (10:07→22:08)
[2017-07-29] MEDS: POLYETHYLENE GLYCOL 3350 17 GM/Dose PACKET PO SCH ×2 (10:09→18:19)
[2017-07-29] MEDS: Nystatin-Triamcinolone Cream(30 gm) TOP SCH ×2 (10:09→18:19)
[2017-07-29] MEDS: Nystatin 100,000 Units/ml Oral Susp 5 ml UD PO SCH ×3 (10:09→18:19)
[2017-07-29] MEDS: Nystatin 100,000 Units/gm Topical Pow(15 gm) TOP SCH ×2 (11:41→19:30)
[2017-07-29] MEDS: Insulin Detemir 100 units/ml Vial (Levemir) SC SCH (22:03)
--- NOTE | 2017-07-29 23:12 | CP.PCM.PN ---
<Everett Alva - Last Filed: 07/29/17 23:09> Subjective - Date & Time of Evaluation Date of Evaluation: 07/29/17 Time of Evaluation: 23:09 - Subjective Subjective: Patient has been seen and examined. No overnight events reported. She complains of constipation, itching, and pain at surgical site. Denies fever, cp , sob, n/v/d, and changes in urination. Objective - Vital Signs/Intake and Output Vital Signs (last 24 hours): Temp Pulse Resp BP Pulse Ox 97.6 F 87 20 129/63 95 07/29/17 18:46 07/29/17 18:46 07/29/17 18:46 07/29/17 18:46 07/29/17 18:46 Intake and Output: 07/29/17 07/30/17 18:59 06:59 Intake Total 540 Balance 540 - Medications Medications: Current Medications Acetaminophen (Tylenol 325mg Tab) 650 mg PO Q4H PRN PRN Reason: Pain, moderate (4-7) Al Hydrox/Mg Hydrox/Simethicone (Maalox Plus 30 Ml) 30 ml PO Q8 [facility] Last Admin: 07/29/17 22:08 Dose: 30 ml Albuterol/Ipratropium (Duoneb 3 Mg/0.5 Mg (3 Ml) Ud) 3 ml IH Q2H PRN PRN Reason: Shortness of Breath Atorvastatin Calcium (Lipitor) 40 mg PO DAILY [facility] Last Admin: 07/29/17 10:07 Dose: 40 mg Benzocaine/Menthol (Cepacol Sore Throat) 1 ryann MT Q2H PRN PRN Reason: Sore Throat Diphenhydramine HCl (Benadryl) 25 mg PO Q6 PRN PRN Reason: Pruritis Last Admin: 07/29/17 14:40 Dose: 25 mg Escitalopram Oxalate (Lexapro) 10 mg PO DAILY [facility] Last Admin: 07/29/17 10:07 Dose: 10 mg Gabapentin (Neurontin) 300 mg PO TID [facility] PRN Reason: Protocol Last Admin: 07/29/17 18:19 Dose: 300 mg Dextrose/Sodium Chloride (Dextrose 5%/0.9% Ns 1000 Ml) 1,000 mls @ 75 mls/hr IV .[id number] [facility] Last Admin: 07/28/17 17:03 Dose: 75 mls/hr Insulin Detemir (Levemir) 10 unit SC HS [facility] Last Admin: 07/29/17 22:03 Dose: 10 unit Insulin Human Lispro (Humalog Med) 0 units SC ACHS [facility] PRN Reason: Protocol Last Admin: 07/29/17 22:02 Dose: 2 units Lisinopril (Zestril) 5 mg PO DAILY [facility] Last Admin: 07/29/17 10:07 Dose: 5 mg Metoprolol Succinate (Toprol Xl) 25 mg PO BRK [facility] Last Admin: 07/29/17 08:42 Dose: 25 mg Metoprolol Tartrate (Lopressor) 5 mg IVP Q6 PRN PRN Reason: Systolic Blood Pressure Nystatin (Nystop Topical Powder) 1 gm TOP Q8H [facility] Last Admin: 07/29/17 19:30 Dose: 1 applic Nystatin (Nystatin Oral Susp) 5 ml PO TID [facility] Last Admin: 07/29/17 18:19 Dose: 5 ml Nystatin/Triamcinolone Acetonide (Nystatin/Triamcinolone Cream) 1 ea TOP BID [facility] Last Admin: 07/29/17 18:19 Dose: 1 applic Ondansetron HCl (Zofran Tab) 4 mg PO Q6 PRN PRN Reason: Nausea/Vomiting Pantoprazole Sodium (Protonix Ec Tab) 40 mg PO Q12 [facility] Last Admin: 07/29/17 22:08 Dose: 40 mg Polyethylene Glycol (Miralax) 17 gm PO BID [facility] Last Admin: 07/29/17 18:19 Dose: 17 gm - Labs Labs: 07/29/17 06:58 07/29/17 06:58 PT 10.3 Seconds (9.9-11.8) 07/19/17 19:00 INR 0.95 (0.93-1.08) 07/19/17 19:00 APTT 27.0 Seconds (23.7-30.8) 07/19/17 19:00 - Constitutional Appears: Well, No Acute Distress - Head Exam Head Exam: NORMOCEPHALIC Additional comments: surgical wound at right parietal region of head. Clean, dry with dressing on it. - Eye Exam Eye Exam: EOMI, Normal appearance - ENT Exam ENT Exam: Mucous Membranes Moist - Respiratory Exam Respiratory Exam: absent: Clear to Ausculation Bilateral, Rhonchi, Wheezes - Cardiovascular Exam Cardiovascular Exam: RRR, +S1, +S2. absent: +S4 - GI/Abdominal Exam GI & Abdominal Exam: Soft, Normal Bowel Sounds. absent: Tenderness, Organomegaly - Extremities Exam Extremities Exam: absent: Pedal Edema - Neurological Exam Neurological Exam: Alert, Awake, Oriented x3 Neuro motor strength exam: Left Upper Extremity: 3, Right Upper Extremity: 5, Left Lower Extremity: 3, Right Lower Extremity: 5 - Psychiatric Exam Psychiatric exam: Normal Affect, Normal Mood - Skin Skin Exam: Dry, Warm Assessment and Plan - Assessment and Plan (Free Text) Assessment: 67F with PMHx of uterine cancer s/p hysterectomy, chemotherapy (stopped due to insurance), DM-2, HTN, dyslipidemia, who presented s/p fall and found to have left sided weakness. MRI showed cystic mass which can be primary tumor vs metastatic, which was resected by neurosurgical team. Plan: 1. Left hemiplegia due to right parietal lobe lesion s/p craniotomy with excisional biopsy - continue neuro check - continue seizure precautions - decadron DCd Neurology, neuro-surgery, and oncology evaluation is appreciation -Tylenol 2. Leukocytosis (resolved) - likely 2/2 steroids, patient remains afebrile - trend WBCs - Nystatin swish & swallow given for thrush prophylaxis 3. Constipation - Miralax per GI 4. H/O HTN - BP 129/63 - continue Lisinopril and Metoprolol - Will monitor BP and adjust medications as needed 5. H/O DM - POC glucose = 303 - Pt is on Insulin Detemir 10 units SC HS. Will continue to monitor blood glucose levels. - Continue sliding scale coverage - Will reassess blood glucose medications in the morning and modify accordingly DVT and GI prophylaxis - continue SCD's - Protonix Dispo: PT recommends rehab. Awaiting acute rehab placement. Added Benadryl for pruritic Patient seen, reviewed, and examined with Attending Everett Alva PGY-1 <Nik Nichols - Last Filed: 07/30/17 07:09> Objective - Vital Signs/Intake and Output Vital Signs (last 24 hours): Temp Pulse Resp BP Pulse Ox 97.6 F 87 20 129/63 95 07/29/17 18:46 07/29/17 18:46 07/29/17 18:46 07/29/17 18:46 07/29/17 18:46 Intake and Output: 07/30/17 07/30/17 06:59 18:59 Intake Total 600 Balance 600 - Medications Medications: Current Medications Acetaminophen (Tylenol 325mg Tab) 650 mg PO Q4H PRN PRN Reason: Pain, moderate (4-7) Al Hydrox/Mg Hydrox/Simethicone (Maalox Plus 30 Ml) 30 ml PO Q8 [facility] Last Admin: 07/29/17 22:08 Dose: 30 ml Albuterol/Ipratropium (Duoneb 3 Mg/0.5 Mg (3 Ml) Ud) 3 ml IH Q2H PRN PRN Reason: Shortness of Breath Atorvastatin Calcium (Lipitor) 40 mg PO DAILY [facility] Last Admin: 07/29/17 10:07 Dose: 40 mg Benzocaine/Menthol (Cepacol Sore Throat) 1 ryann MT Q2H PRN PRN Reason: Sore Throat Diphenhydramine HCl (Benadryl) 25 mg PO Q6 PRN PRN Reason: Pruritis Last Admin: 07/30/17 01:56 Dose: 25 mg Escitalopram Oxalate (Lexapro) 10 mg PO DAILY [facility] Last Admin: 07/29/17 10:07 Dose: 10 mg Gabapentin (Neurontin) 300 mg PO TID [facility] PRN Reason: Protocol Last Admin: 07/29/17 18:19 Dose: 300 mg Dextrose/Sodium Chloride (Dextrose 5%/0.9% Ns 1000 Ml) 1,000 mls @ 75 mls/hr IV .[id number] [facility] Last Admin: 07/28/17 17:03 Dose: 75 mls/hr Insulin Detemir (Levemir) 10 unit SC HS [facility] Last Admin: 07/29/17 22:03 Dose: 10 unit Insulin Human Lispro (Humalog Med) 0 units SC ACHS [facility] PRN Reason: Protocol Last Admin: 07/29/17 22:02 Dose: 2 units Lisinopril (Zestril) 5 mg PO DAILY [facility] Last Admin: 07/29/17 10:07 Dose: 5 mg Metoprolol Succinate (Toprol Xl) 25 mg PO BRK [facility] Last Admin: 07/29/17 08:42 Dose: 25 mg Metoprolol Tartrate (Lopressor) 5 mg IVP Q6 PRN PRN Reason: Systolic Blood Pressure Nystatin (Nystop Topical Powder) 1 gm TOP Q8H [facility] Last Admin: 07/29/17 19:30 Dose: 1 applic Nystatin (Nystatin Oral Susp) 5 ml PO TID [facility] Last Admin: 07/29/17 18:19 Dose: 5 ml Nystatin/Triamcinolone Acetonide (Nystatin/Triamcinolone Cream) 1 ea TOP BID [facility] Last Admin: 07/29/17 18:19 Dose: 1 applic Ondansetron HCl (Zofran Tab) 4 mg PO Q6 PRN PRN Reason: Nausea/Vomiting Pantoprazole Sodium (Protonix Ec Tab) 40 mg PO Q12 [facility] Last Admin: 07/29/17 22:08 Dose: 40 mg Polyethylene Glycol (Miralax) 17 gm PO BID [facility] Last Admin: 07/29/17 18:19 Dose: 17 gm - Labs Labs: 07/30/17 06:00 07/30/17 06:00 PT 10.3 Seconds (9.9-11.8) 07/19/17 19:00 INR 0.95 (0.93-1.08) 07/19/17 19:00 APTT 27.0 Seconds (23.7-30.8) 07/19/17 19:00 Attending/Attestation - Attestation I have personally seen and examined this patient.: Yes I have fully participated in the care of the patient.: Yes I have reviewed all pertinent clinical information, including history, physical exam and plan: Yes Notes (Text): 07/29/17 67 year old female with past medical history of uterine cancer s/p hysterectomy and chemotherapy, diabetes, hypertension and dyslipidemia who presented s/p fall with left sided weakness. MRI showed cystic mass. She was seen by neurology and neurosurgery. She is s/p craniotomy with excisional biopsy. Her decadron has been discontinued. She is on lisinopril and metoprolol for diabetes. She is on levemir for diabetes and statin for dyslipidemia. She is pending placement to rehab. Nik Nichols MD Hospitalist.
[2017-07-30 06:25] LABS: ALB/GLOB RATIO 1.1 (1.1-1.8); ALKALINE PHOSPHATASE 81 U/L (38-126); ALT/SGPT 34 U/L (7-56); AST/SGOT 22 U/L (14-36); BILIRUBIN,TOTAL 0.7 mg/dL (0.2-1.3); BLOOD UREA NITROGEN 23 mg/dL (7-21); CALCIUM 8.7 mg/dL (8.4-10.5); CARBON DIOXIDE 30 mmol/L (21-33); CHLORIDE 101 mmol/L (95-110); GFR AFRICAN-AMERICAN > 60; GLUCOSE,RANDOM 205 mg/dL (70-110); MAGNESIUM 1.8 mg/dL (1.7-2.2); PHOSPHOROUS 3.5 mg/dL (2.5-4.5); POTASSIUM 4.3 mmol/L (3.6-5.0); SODIUM 137 mmol/L (132-148); TOTAL PROTEIN 5.9 g/dL (5.8-8.3)
[2017-07-30 06:30] LABS: EOS # 0.2 (0.0-0.7); EOS % 1.9 % (1.5-5.0); GRAN # 6.54 (1.4-6.5); GRAN % 80.9 % (50.0-68.0); HEMATOCRIT 28.3 % (36.0-48.0); LYMPH # 1.1 (1.2-3.4); LYMPH % 13.1 % (22.0-35.0); MEAN CELL VOLUME 89.6 fl (80.0-105.0); MEAN CORPUSCULAR HEMOGLOBIN 29.1 pg (25.0-35.0); MEAN CORPUSCULAR HGB CONC 32.5 g/dl (31.0-37.0); MEAN PLATELET VOLUME 9.1 fl (7.0-11.0); MONO # 0.3 (0.1-0.6); MONO % 4.1 % (1.0-6.0); WHITE BLOOD COUNT 8.1 10^3/ul (4.5-11.0)
[2017-07-30] MEDS: Insulin Lispro (humaLOG) MEDIUM Coverage SC SCH ×4 (08:30→22:22)
[2017-07-30] MEDS: Metoprolol Succinate 25 mg XL Tab PO SCH (09:21)
[2017-07-30] MEDS: POLYETHYLENE GLYCOL 3350 17 GM/Dose PACKET PO SCH ×2 (09:21→17:49)
[2017-07-30] MEDS: Pantoprazole 40 mg EC Tab PO SCH ×2 (09:21→22:25)
[2017-07-30] MEDS: Nystatin 100,000 Units/ml Oral Susp 5 ml UD PO SCH ×3 (09:21→17:49)
[2017-07-30] MEDS: Nystatin-Triamcinolone Cream(30 gm) TOP SCH (09:22)
--- NOTE | 2017-07-30 10:49 | CP.PCM.PN ---
Subjective - Date & Time of Evaluation Date of Evaluation: 07/30/17 Time of Evaluation: 08:45 - Subjective Subjective: Patient seen and examined at bedside. No acute events reported overnight. No acute events reported overnight. Appears comfortable this morning without any new complaints. Review of Systems - Review of Systems All systems: reviewed and no additional remarkable complaints except - Constitutional Constitutional: Weakness (left side; improved) - EENT Eyes: absent: Blurred Vision Ears: absent: Dizziness - Cardiovascular Cardiovascular: absent: Chest Pain, Dyspnea - Respiratory Respiratory: absent: Cough, Dyspnea - Gastrointestinal Gastrointestinal: absent: Abdominal Pain, Nausea, Vomiting - Genitourinary Genitourinary: absent: Dysuria - Musculoskeletal Musculoskeletal: As Par HPI - Neurological Neurological: As Per HPI - Psychiatric Psychiatric: absent: Anxiety Objective - Vital Signs/Intake and Output Vital Signs (last 24 hours): Temp Pulse Resp BP Pulse Ox 97.6 F 87 20 129/62 95 07/29/17 18:46 07/29/17 18:46 07/29/17 18:46 07/30/17 09:21 07/29/17 18:46 Intake and Output: 07/30/17 07/30/17 06:59 18:59 Intake Total 600 Balance 600 - Medications Medications: Current Medications Acetaminophen (Tylenol 325mg Tab) 650 mg PO Q4H PRN PRN Reason: Pain, moderate (4-7) Al Hydrox/Mg Hydrox/Simethicone (Maalox Plus 30 Ml) 30 ml PO Q8 [facility] Last Admin: 07/29/17 22:08 Dose: 30 ml Albuterol/Ipratropium (Duoneb 3 Mg/0.5 Mg (3 Ml) Ud) 3 ml IH Q2H PRN PRN Reason: Shortness of Breath Atorvastatin Calcium (Lipitor) 40 mg PO DAILY [facility] Last Admin: 07/30/17 09:20 Dose: 40 mg Benzocaine/Menthol (Cepacol Sore Throat) 1 ryann MT Q2H PRN PRN Reason: Sore Throat Diphenhydramine HCl (Benadryl) 25 mg PO Q6 PRN PRN Reason: Pruritis Last Admin: 07/30/17 01:56 Dose: 25 mg Escitalopram Oxalate (Lexapro) 10 mg PO DAILY [facility] Last Admin: 07/30/17 09:21 Dose: 10 mg Gabapentin (Neurontin) 300 mg PO TID [facility] PRN Reason: Protocol Last Admin: 07/30/17 09:20 Dose: 300 mg Dextrose/Sodium Chloride (Dextrose 5%/0.9% Ns 1000 Ml) 1,000 mls @ 75 mls/hr IV .[id number] [facility] Last Admin: 07/28/17 17:03 Dose: 75 mls/hr Insulin Detemir (Levemir) 10 unit SC HS [facility] Last Admin: 07/29/17 22:03 Dose: 10 unit Insulin Human Lispro (Humalog Med) 0 units SC ACHS [facility] PRN Reason: Protocol Last Admin: 07/30/17 08:30 Dose: 1 units Lisinopril (Zestril) 5 mg PO DAILY [facility] Last Admin: 07/30/17 09:21 Dose: 5 mg Metoprolol Succinate (Toprol Xl) 25 mg PO BRK [facility] Last Admin: 07/30/17 09:21 Dose: 25 mg Metoprolol Tartrate (Lopressor) 5 mg IVP Q6 PRN PRN Reason: Systolic Blood Pressure Nystatin (Nystop Topical Powder) 1 gm TOP Q8H [facility] Last Admin: 07/29/17 19:30 Dose: 1 applic Nystatin (Nystatin Oral Susp) 5 ml PO TID [facility] Last Admin: 07/30/17 09:21 Dose: 5 ml Nystatin/Triamcinolone Acetonide (Nystatin/Triamcinolone Cream) 1 ea TOP BID [facility] Last Admin: 07/30/17 09:22 Dose: 1 applic Ondansetron HCl (Zofran Tab) 4 mg PO Q6 PRN PRN Reason: Nausea/Vomiting Pantoprazole Sodium (Protonix Ec Tab) 40 mg PO Q12 [facility] Last Admin: 07/30/17 09:21 Dose: 40 mg Polyethylene Glycol (Miralax) 17 gm PO BID [facility] Last Admin: 07/30/17 09:21 Dose: 17 gm - Labs Labs: 07/30/17 06:00 07/30/17 06:00 PT 10.3 Seconds (9.9-11.8) 07/19/17 19:00 INR 0.95 (0.93-1.08) 07/19/17 19:00 APTT 27.0 Seconds (23.7-30.8) 07/19/17 19:00 - Constitutional Appears: Well, No Acute Distress - Head Exam Additional comments: left sided parietal scalp dressing - Eye Exam Eye Exam: EOMI - ENT Exam ENT Exam: Normal Exam - Respiratory Exam Respiratory Exam: Clear to Ausculation Bilateral. absent: Rales, Wheezes - Cardiovascular Exam Cardiovascular Exam: REGULAR RHYTHM, +S1, +S2 - GI/Abdominal Exam GI & Abdominal Exam: Soft, Normal Bowel Sounds. absent: Tenderness, Organomegaly - Extremities Exam Extremities Exam: Normal Inspection - Neurological Exam Neurological Exam: Alert, Awake, Oriented x3 Neuro motor strength exam: Left Upper Extremity: 3, Right Upper Extremity: 5, Left Lower Extremity: 3, Right Lower Extremity: 5 - Psychiatric Exam Psychiatric exam: Normal Affect, Normal Mood Assessment and Plan - Assessment and Plan (Free Text) Plan: This is a 67 year old female with past medical history of uterine cancer s/p hysterectomy and chemotherapy, diabetes, hypertension and dyslipidemia who presented s/p fall with left sided weakness. MRI showed cystic mass which was resected by neurosurgery. 1. Left hemiplegia secondary to right parietal lobe lesion - S/p craniotomy with excisional biopsy. She was followed by neurology, neurosurgery and oncology. Continue with physical therapy. She is now off decadron. 2. Hypertension - Continue with lisinopril and metoprolol. 3. Diabetes - Continue with levemir and insulin ss. 4. Dyslipidemia - Continue with statin. Continue with protonix for GI prophylaxis and SCDs for DVT prophylaxis. Continue with physical therapy. Patient is currently pending rehab placement.
[2017-07-30] MEDS: Nystatin 100,000 Units/gm Topical Pow(15 gm) TOP SCH ×2 (11:53→22:25)
[2017-07-30] MEDS: Alum-Mag Hydrox-Simethicone Susp (30 mL) PO SCH ×2 (14:16→22:24)
[2017-07-30] MEDS: Dextrose 5%/0.9% NS 1,000 ML IV SCH (14:55)
[2017-07-30] MEDS: Insulin Detemir 100 units/ml Vial (Levemir) SC SCH (22:23)
--- NOTE | 2017-07-31 01:31 | CP.PCM.PN ---
Subjective - Date & Time of Evaluation Date of Evaluation: 07/28/17 Time of Evaluation: 19:00 - Subjective Subjective: Has mild post op scalp pain. Objective - Vital Signs/Intake and Output Vital Signs (last 24 hours): Temp Pulse Resp BP Pulse Ox 98.6 F 75 20 131/67 95 07/30/17 17:14 07/30/17 17:14 07/30/17 17:14 07/30/17 17:14 07/30/17 17:14 Intake and Output: 07/30/17 07/31/17 18:59 06:59 Intake Total 420 Output Total 1 Balance 419 - Medications Medications: Current Medications Acetaminophen (Tylenol 325mg Tab) 650 mg PO Q4H PRN PRN Reason: Pain, moderate (4-7) Al Hydrox/Mg Hydrox/Simethicone (Maalox Plus 30 Ml) 30 ml PO Q8 [facility] Last Admin: 07/30/17 22:24 Dose: 30 ml Albuterol/Ipratropium (Duoneb 3 Mg/0.5 Mg (3 Ml) Ud) 3 ml IH Q2H PRN PRN Reason: Shortness of Breath Atorvastatin Calcium (Lipitor) 40 mg PO DAILY [facility] Last Admin: 07/30/17 09:20 Dose: 40 mg Benzocaine/Menthol (Cepacol Sore Throat) 1 ryann MT Q2H PRN PRN Reason: Sore Throat Diphenhydramine HCl (Benadryl) 25 mg PO Q6 PRN PRN Reason: Pruritis Last Admin: 07/30/17 14:15 Dose: 25 mg Escitalopram Oxalate (Lexapro) 10 mg PO DAILY [facility] Last Admin: 07/30/17 09:21 Dose: 10 mg Gabapentin (Neurontin) 300 mg PO TID [facility] PRN Reason: Protocol Last Admin: 07/30/17 17:49 Dose: 300 mg Dextrose/Sodium Chloride (Dextrose 5%/0.9% Ns 1000 Ml) 1,000 mls @ 75 mls/hr IV .[id number] [facility] Last Admin: 07/30/17 14:55 Dose: 75 mls/hr Insulin Detemir (Levemir) 10 unit SC HS [facility] Last Admin: 07/30/17 22:23 Dose: 10 unit Insulin Human Lispro (Humalog Med) 0 units SC ACHS [facility] PRN Reason: Protocol Last Admin: 07/30/17 22:22 Dose: 3 units Lisinopril (Zestril) 5 mg PO DAILY [facility] Last Admin: 07/30/17 09:21 Dose: 5 mg Metoprolol Succinate (Toprol Xl) 25 mg PO BRK [facility] Last Admin: 07/30/17 09:21 Dose: 25 mg Metoprolol Tartrate (Lopressor) 5 mg IVP Q6 PRN PRN Reason: Systolic Blood Pressure Nystatin (Nystop Topical Powder) 1 gm TOP Q8H [facility] Last Admin: 07/30/17 22:25 Dose: 1 applic Nystatin (Nystatin Oral Susp) 5 ml PO TID [facility] Last Admin: 07/30/17 17:49 Dose: 5 ml Nystatin/Triamcinolone Acetonide (Nystatin/Triamcinolone Cream) 1 ea TOP BID [facility] Last Admin: 07/30/17 09:22 Dose: 1 applic Ondansetron HCl (Zofran Tab) 4 mg PO Q6 PRN PRN Reason: Nausea/Vomiting Pantoprazole Sodium (Protonix Ec Tab) 40 mg PO Q12 [facility] Last Admin: 07/30/17 22:25 Dose: 40 mg Polyethylene Glycol (Miralax) 17 gm PO BID [facility] Last Admin: 07/30/17 17:49 Dose: 17 gm - Labs Labs: 07/30/17 06:00 07/30/17 06:00 PT 10.3 Seconds (9.9-11.8) 07/19/17 19:00 INR 0.95 (0.93-1.08) 07/19/17 19:00 APTT 27.0 Seconds (23.7-30.8) 07/19/17 19:00 - Eye Exam Eye Exam: Normal appearance - ENT Exam ENT Exam: Mucous Membranes Dry - Respiratory Exam Respiratory Exam: NORMAL BREATHING PATTERN - Cardiovascular Exam Cardiovascular Exam: +S1, +S2 - GI/Abdominal Exam GI & Abdominal Exam: Normal Bowel Sounds - Extremities Exam Extremities Exam: Pedal Edema Assessment and Plan (1) Brain mass Assessment & Plan: s/p excisional biopsy f/u path Status: Acute (2) Anemia Status: Acute
[2017-07-31] MEDS: Alum-Mag Hydrox-Simethicone Susp (30 mL) PO SCH ×2 (05:50→13:37)
[2017-07-31] MEDS: Nystatin 100,000 Units/gm Topical Pow(15 gm) TOP SCH ×2 (05:51→13:38)
[2017-07-31 07:05] LABS: EOS # 0.1 (0.0-0.7); EOS % 1.6 % (1.5-5.0); GRAN # 6.44 (1.4-6.5); GRAN % 81.2 % (50.0-68.0); HEMATOCRIT 27.3 % (36.0-48.0); LYMPH % 12.9 % (22.0-35.0); MEAN CELL VOLUME 90.1 fl (80.0-105.0); MEAN CORPUSCULAR HEMOGLOBIN 28.7 pg (25.0-35.0); MEAN CORPUSCULAR HGB CONC 31.9 g/dl (31.0-37.0); MEAN PLATELET VOLUME 8.9 fl (7.0-11.0); MONO # 0.3 (0.1-0.6); MONO % 4.3 % (1.0-6.0); RED CELL DISTRIBUTION WIDTH 13.3 % (11.5-14.5); WHITE BLOOD COUNT 7.9 10^3/ul (4.5-11.0)
[2017-07-31 07:37] LABS: ALB/GLOB RATIO 1.1 (1.1-1.8); ALKALINE PHOSPHATASE 81 U/L (38-126); ALT/SGPT 34 U/L (7-56); AST/SGOT 25 U/L (14-36); BILIRUBIN,TOTAL 0.5 mg/dL (0.2-1.3); BLOOD UREA NITROGEN 22 mg/dL (7-21); CALCIUM 8.8 mg/dL (8.4-10.5); CARBON DIOXIDE 30 mmol/L (21-33); CHLORIDE 103 mmol/L (98-107); GFR AFRICAN-AMERICAN > 60; GLUCOSE,RANDOM 203 mg/dL (70-110); MAGNESIUM 1.7 mg/dL (1.7-2.2); PHOSPHOROUS 3.4 mg/dL (2.5-4.5); POTASSIUM 4.2 mmol/L (3.6-5.0); SODIUM 139 mmol/L (132-148); TOTAL PROTEIN 5.7 g/dL (5.8-8.3)
[2017-07-31] MEDS: Insulin Lispro (humaLOG) MEDIUM Coverage SC SCH ×3 (07:51→16:53)
[2017-07-31] MEDS: POLYETHYLENE GLYCOL 3350 17 GM/Dose PACKET PO SCH (09:13)
[2017-07-31] MEDS: Nystatin-Triamcinolone Cream(30 gm) TOP SCH (09:13)
[2017-07-31] MEDS: Nystatin 100,000 Units/ml Oral Susp 5 ml UD PO SCH ×2 (09:13→13:37)
[2017-07-31] MEDS: Pantoprazole 40 mg EC Tab PO SCH (09:14)
[2017-07-31] MEDS: Metoprolol Succinate 25 mg XL Tab PO SCH (09:14)
--- NOTE | 2017-07-31 11:17 | PN ---
SUBJECTIVE: This patient was seen and evaluated earlier today. The patient has been tolerating the diet, moving her bowel movements okay. No complaints of any abdominal pain. PHYSICAL EXAMINATION VITAL SIGNS: Temperature 98.6, pulse 75, blood pressure 131/67, and respirations 20. O2 saturation 95%. HEENT: The patient has a craniotomy wound present. NECK: Supple. HEART: S1, S2 heard. LUNGS: Bilateral air entry present. ABDOMEN: Soft. LABORATORY DATA: Hemoglobin is stable 9.2. 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 The patient is anemic. Hemoglobin has been stable. On PPI, continue. Constipation has improved. The patient does have dysphagia, improving, on pureed diet. Irma Coto MD
--- NOTE | 2017-07-31 12:32 | CP.PCM.PN ---
<Caitlin Ayon - Last Filed: 07/31/17 12:30> Subjective - Date & Time of Evaluation Date of Evaluation: 07/31/17 Time of Evaluation: 10:30 - Subjective Subjective: S&E at bedside, chart reviewed, Reports no BM X3 days. No c/o N/V or abdominal pain. Tolerating oral intake,no acute overnight events. Objective - Vital Signs/Intake and Output Vital Signs (last 24 hours): Temp Pulse Resp BP Pulse Ox 98.1 F 74 20 125/60 95 07/31/17 08:57 07/31/17 09:14 07/31/17 08:57 07/31/17 09:14 07/31/17 08:57 Intake and Output: 07/31/17 07/31/17 06:59 18:59 Intake Total 480 Output Total 1 Balance 479 - Medications Medications: Current Medications Acetaminophen (Tylenol 325mg Tab) 650 mg PO Q4H PRN PRN Reason: Pain, moderate (4-7) Al Hydrox/Mg Hydrox/Simethicone (Maalox Plus 30 Ml) 30 ml PO Q8 [facility] Last Admin: 07/31/17 05:50 Dose: 30 ml Albuterol/Ipratropium (Duoneb 3 Mg/0.5 Mg (3 Ml) Ud) 3 ml IH Q2H PRN PRN Reason: Shortness of Breath Atorvastatin Calcium (Lipitor) 40 mg PO DAILY [facility] Last Admin: 07/31/17 09:13 Dose: 40 mg Benzocaine/Menthol (Cepacol Sore Throat) 1 ryann MT Q2H PRN PRN Reason: Sore Throat Diphenhydramine HCl (Benadryl) 25 mg PO Q6 PRN PRN Reason: Pruritis Last Admin: 07/30/17 14:15 Dose: 25 mg Escitalopram Oxalate (Lexapro) 10 mg PO DAILY [facility] Last Admin: 07/31/17 09:12 Dose: 10 mg Gabapentin (Neurontin) 300 mg PO TID [facility] PRN Reason: Protocol Last Admin: 07/31/17 09:13 Dose: 300 mg Dextrose/Sodium Chloride (Dextrose 5%/0.9% Ns 1000 Ml) 1,000 mls @ 75 mls/hr IV .[id number] [facility] Last Admin: 07/30/17 14:55 Dose: 75 mls/hr Insulin Detemir (Levemir) 10 unit SC HS [facility] Last Admin: 07/30/17 22:23 Dose: 10 unit Insulin Human Lispro (Humalog Med) 0 units SC ACHS [facility] PRN Reason: Protocol Last Admin: 07/31/17 11:50 Dose: 3 units Lisinopril (Zestril) 5 mg PO DAILY [facility] Last Admin: 07/31/17 09:14 Dose: 5 mg Metoprolol Succinate (Toprol Xl) 25 mg PO BRK [facility] Last Admin: 07/31/17 09:14 Dose: 25 mg Metoprolol Tartrate (Lopressor) 5 mg IVP Q6 PRN PRN Reason: Systolic Blood Pressure Nystatin (Nystop Topical Powder) 1 gm TOP Q8H [facility] Last Admin: 07/31/17 05:51 Dose: 1 applic Nystatin (Nystatin Oral Susp) 5 ml PO TID [facility] Last Admin: 07/31/17 09:13 Dose: 5 ml Nystatin/Triamcinolone Acetonide (Nystatin/Triamcinolone Cream) 1 ea TOP BID [facility] Last Admin: 07/31/17 09:13 Dose: 1 applic Ondansetron HCl (Zofran Tab) 4 mg PO Q6 PRN PRN Reason: Nausea/Vomiting Pantoprazole Sodium (Protonix Ec Tab) 40 mg PO Q12 [facility] Last Admin: 07/31/17 09:14 Dose: 40 mg Polyethylene Glycol (Miralax) 17 gm PO BID [facility] Last Admin: 07/31/17 09:13 Dose: 17 gm - Labs Labs: 07/31/17 06:55 07/31/17 06:55 PT 10.3 Seconds (9.9-11.8) 07/19/17 19:00 INR 0.95 (0.93-1.08) 07/19/17 19:00 APTT 27.0 Seconds (23.7-30.8) 07/19/17 19:00 - Constitutional Appears: No Acute Distress - Head Exam Head Exam: NORMOCEPHALIC Additional comments: head dressing D&I - Eye Exam Eye Exam: Normal appearance. absent: Scleral icterus - ENT Exam ENT Exam: Mucous Membranes Moist - Neck Exam Neck Exam: Normal Inspection - Respiratory Exam Respiratory Exam: NORMAL BREATHING PATTERN. absent: Respiratory Distress - Cardiovascular Exam Cardiovascular Exam: +S1, +S2 - GI/Abdominal Exam GI & Abdominal Exam: Soft, Normal Bowel Sounds. absent: Guarding, Tenderness, Rebound - Extremities Exam Extremities Exam: Normal Capillary Refill. absent: Calf Tenderness, Pedal Edema - Neurological Exam Neurological Exam: Alert, Awake, Oriented x3 - Skin Skin Exam: Dry, Warm Assessment and Plan - Assessment and Plan (Free Text) Assessment: Assessment: 67-year-old female with history of uterine cancer status post chemoradiation and hysterectomy, admitted with left-sided weakness and found to have large brain mass Status post craniotomy with evacuation of cystic mass Constipation Intermittent episodes of dysphagia, heartburn, consider oral thrush Anemia Hypertension Dyslipidemia Plan: diet as tolerated Continue PPI as patient is on steroids Monitor H&H on Decadron continue bowel regimen of MiraLAX give dulcolax supp X1 today continue nystatin Seen and discussed with Dr. Coto <Irma Coto V - Last Filed: 07/31/17 23:35> Objective - Vital Signs/Intake and Output Vital Signs (last 24 hours): Temp Pulse Resp BP Pulse Ox 99.9 F H 75 22 126/61 96 07/31/17 16:00 07/31/17 16:00 07/31/17 16:00 07/31/17 16:00 07/31/17 16:00 Intake and Output: 07/31/17 08/01/17 18:59 06:59 Intake Total 480 Output Total 600 Balance -120 - Labs Labs: 07/31/17 06:55 07/31/17 06:55 PT 10.3 Seconds (9.9-11.8) 07/19/17 19:00 INR 0.95 (0.93-1.08) 07/19/17 19:00 APTT 27.0 Seconds (23.7-30.8) 07/19/17 19:00 Attending/Attestation - Attestation I have personally seen and examined this patient.: Yes I have fully participated in the care of the patient.: Yes I have reviewed all pertinent clinical information, including history, physical exam and plan: Yes Notes (Text): 07/31/17 23:31 The patient was seen and evaluated earlier. This is an addendum to GI progress report dicted by Caitlin ayon APN. o/e Abdomen soft . no tenderness Hct stable. tolerating diet. continue PPI followup hb/hct continue stool softners Thanks
[2017-07-31 17:23] VITALS: BP 126/61; PULSE 75; RESP 22; TEMP 99.9; O2SAT 96
--- NOTE | 2017-07-31 19:28 | CP.PCM.DIS ---
<Everett Alva - Last Filed: 07/31/17 19:25> Provider - Provider Date of Admission: 07/19/17 21:31 Attending physician: Nik Nichols MD Primary care physician: Edna Shaffer MD Consults: Neuro: Fausto Neurosurg: Sukumar GI: Nnamdi Onc: Saira Time Spent in preparation of Discharge (in minutes): 60 Diagnosis - Discharge Diagnosis (1) Brain mass Status: Acute Hospital Course - Lab Results Lab Results: Micro Results 07/25/17 23:00 Nose MRSA Culture (Admit) - Final MRSA NOT DETECTED Most Recent Lab Values WBC 7.9 10^3/ul (4.5-11.0) 07/31/17 06:55 RBC 3.03 10^6/uL (3.5-6.1) L 07/31/17 06:55 Hgb 8.7 g/dL (12.0-16.0) L 07/31/17 06:55 Hct 27.3 % (36.0-48.0) L 07/31/17 06:55 MCV 90.1 fl (80.0-105.0) 07/31/17 06:55 MCH 28.7 pg (25.0-35.0) 07/31/17 06:55 MCHC 31.9 g/dl (31.0-37.0) 07/31/17 06:55 RDW 13.3 % (11.5-14.5) 07/31/17 06:55 Plt Count 167 10^3/uL (120.0-450.0) 07/31/17 06:55 MPV 8.9 fl (7.0-11.0) 07/31/17 06:55 Gran % 81.2 % (50.0-68.0) H 07/31/17 06:55 Lymph % (Auto) 12.9 % (22.0-35.0) L 07/31/17 06:55 Barren % (Auto) 4.3 % (1.0-6.0) 07/31/17 06:55 Eos % (Auto) 1.6 % (1.5-5.0) 07/31/17 06:55 Baso % (Auto) 0.0 % (0.0-3.0) 07/31/17 06:55 Gran # 6.44 (1.4-6.5) 07/31/17 06:55 Lymph # 1.0 (1.2-3.4) L 07/31/17 06:55 Barren # 0.3 (0.1-0.6) 07/31/17 06:55 Eos # 0.1 (0.0-0.7) 07/31/17 06:55 Baso # 0.00 K/mm3 (0.0-2.0) 07/31/17 06:55 Neutrophils % (Manual) 93 % (50.0-70.0) H 07/26/17 08:28 Lymphocytes % (Manual) 4 % (22.0-35.0) L 07/26/17 08:28 Monocytes % (Manual) 3 % (1.0-6.0) 07/26/17 08:28 Platelet Evaluation Normal (NORMAL) 07/26/17 08:28 Polychromasia Slight 07/26/17 08:28 Hypochromasia 1+ 07/26/17 08:28 Anisocytosis (manual) 1+ 07/26/17 08:28 Ovalocytes Slight 07/26/17 08:28 Retic Count 2.59 % (0.5-1.5) H 07/22/17 07:00 PT 10.3 Seconds (9.9-11.8) 07/19/17 19:00 INR 0.95 (0.93-1.08) 07/19/17 19:00 APTT 27.0 Seconds (23.7-30.8) 07/19/17 19:00 Sodium 139 mmol/L (132-148) 07/31/17 06:55 Potassium 4.2 mmol/L (3.6-5.0) 07/31/17 06:55 Chloride 103 mmol/L (98-107) 07/31/17 06:55 Carbon Dioxide 30 mmol/L (21-33) 07/31/17 06:55 Anion Gap 10 (10-20) 07/31/17 06:55 BUN 22 mg/dL (7-21) H 07/31/17 06:55 Creatinine 0.8 mg/dL (0.5-1.4) 07/31/17 06:55 Est GFR ( Amer) > 60 07/31/17 06:55 Est GFR (Non-Af Amer) > 60 07/31/17 06:55 POC Glucose (mg/dL) 238 mg/dL (65-110) H 07/31/17 16:14 Random Glucose 203 mg/dL (70-110) H 07/31/17 06:55 Hemoglobin A1c 6.8 % (4.2-6.5) H 07/22/17 08:20 Calcium 8.8 mg/dL (8.4-10.5) 07/31/17 06:55 Phosphorus 3.4 mg/dL (2.5-4.5) 07/31/17 06:55 Magnesium 1.7 mg/dL (1.7-2.2) 07/31/17 06:55 Iron 106 ug/dL (45-180) 07/22/17 07:00 TIBC 288 ug/dL (265-497) 07/22/17 07:00 % Saturation 37 % (20-55) 07/22/17 07:00 Ferritin 350.0 ng/mL 07/22/17 07:00 Total Bilirubin 0.5 mg/dL (0.2-1.3) 07/31/17 06:55 AST 25 U/L (14-36) 07/31/17 06:55 ALT 34 U/L (7-56) 07/31/17 06:55 Alkaline Phosphatase 81 U/L (38-126) 07/31/17 06:55 Troponin I < 0.01 ng/mL 07/19/17 19:00 Total Protein 5.7 g/dL (5.8-8.3) L 07/31/17 06:55 Albumin 3.0 g/dL (3.0-4.8) 07/31/17 06:55 Globulin 2.7 gm/dL 07/31/17 06:55 Albumin/Globulin Ratio 1.1 (1.1-1.8) 07/31/17 06:55 Triglycerides 415 mg/dL (35-160) H 07/19/17 19:00 Cholesterol 220 mg/dL (130-200) H 07/19/17 19:00 LDL Cholesterol Direct 123 mg/dL (0-129) 07/19/17 19:00 HDL Cholesterol 38 mg/dL (29-60) 07/19/17 19:00 Vitamin B12 666 pg/mL (239-931) 07/22/17 07:00 Folate > 20.0 ng/mL 07/22/17 07:00 Urine Color Yellow (YELLOW) 07/19/17 19:30 Urine Appearance Clear (CLEAR) 07/19/17 19:30 Urine pH 6.5 (4.7-8.0) 07/19/17 19:30 Ur Specific Hardaway 1.010 (1.005-1.035) 07/19/17 19:30 Urine Protein Negative mg/dL (<30 mg/dL) 07/19/17 19:30 Urine Glucose (UA) Negative mg/dL (NEGATIVE) 07/19/17 19:30 Urine Ketones Negative mg/dL (NEGATIVE) 07/19/17 19:30 Urine Blood Negative (NEGATIVE) 07/19/17 19:30 Urine Nitrate Negative (NEGATIVE) 07/19/17 19:30 Urine Bilirubin Negative (NEGATIVE) 07/19/17 19:30 Urine Urobilinogen 0.2 E.U./dL (<1 E.U./dL) 07/19/17 19:30 Ur Leukocyte Esterase Trace Pavel/uL (NEGATIVE) H 07/19/17 19:30 Urine RBC Negative /hpf (0-2) 07/19/17 19:30 Urine WBC 2 - 5 /hpf (0-6) 07/19/17 19:30 Ur Epithelial Cells 3 - 4 /hpf (0-5) 07/19/17 19:30 Urine Bacteria Few (NEG) 07/19/17 19:30 Stool Occult Blood Negative (NEGATIVE) 07/23/17 19:00 Blood Type O POSITIVE 07/24/17 19:29 Blood Type Confirm O POSITIVE 07/24/17 21:33 Antibody Screen Negative 07/24/17 19:29 Crossmatch See Detail 07/24/17 19:29 BBK History Checked No verified bt 07/24/17 19:29 - Hospital Course Hospital Course: 67 yo F with 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 Of note, pt last received chemo 3 months ago for uternine CA but stopped due to insurance reasons. CXR (-) Neuro consulted on the case. Patient was placed on decadron. Weakness slightly improved. 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 Hip CT (-). Neurosurgery(Sukumar) consult was placed. Patient went for craniotomy w/ excisional biopsy. Path results are pending. Patient ill follow up with Onc for results. Strength slight improved post procedure. PT/OT recommend rehab. Patient will be transferred to [facility] for rehabilitation. Patient will follow up with PMD or Onc for path results. She will follow up neuro and neurosurgery within 1 week. Hospital course complicated by constipation. Patient put on bowel regiment per GI. Patient agreeable to plan. Relevant studies below. Retic=2.14, Ferritin 237, VitB12 508, Folate>20. Hip/Pelvis CT and X-ray negative. Shoulder x-ray negative. CT Abd/Pelvis only positive for LLQ non-obstructing spigellian hernia and fatty liver Patient seen, examined, and discussed with Attending. Everett Alva PGY-1 - Date & Time of H&P Date of H&P: 07/31/17 Time of H&P: 19:26 Discharge Exam - Head Exam Head Exam: NORMAL INSPECTION, NORMOCEPHALIC Additional comments: surgical wound on R parietal region. Dressed. No drainage. - Eye Exam Eye Exam: EOMI, Normal appearance - ENT Exam ENT Exam: Mucous Membranes Moist - Respiratory Exam Respiratory Exam: Clear to PA & Lateral - Cardiovascular Exam Cardiovascular Exam: RRR, +S1, +S2 - GI/Abdominal Exam GI & Abdominal Exam: Normal Bowel Sounds, Unremarkable. absent: Tenderness - Extremities Exam Extremities exam: normal inspection - Neurological Exam Neurological exam: Alert, Oriented x3 Additional comments: 3-4/5 muscle strength in upper ext. 2-3/5 in iliopsoas flexion. Dorsi/Plantar flexion is 5/5. Left sided Values - Psychiatric Exam Psychiatric exam: Normal Affect, Normal Mood - Skin Skin Exam: Normal Color, Warm Discharge Plan - Follow Up Plan Condition: GUARDED Disposition: REHAB FACILITY/REHAB UNIT Instructions: Craniotomy for Tumor Resection (DC), Fall Prevention (DC) Additional Instructions: follow up with Primary care doctor in 3-5 day for pathology report. follow up with [facility]/onc, Dr. Chávez, in 1 week follow up with neurosurgery, Dr. Ruffin, in 1 week follow up with neurology in 1 week FOLLOW FACILITY PROTOCOL IN REHAB. STAFF TO FOLLOW. CONTINUE WITH MEDICATION INSTRUCTED el seguimiento con el mdico de atencin primaria en 3-5 coburn para el informe de patologa. seguimiento con heme / onc, Dr. Chávez, en 1 semana seguimiento con neurociruga, Dr. Ruffin, en 1 semana seguimiento con neurologa en 1 semana SEGUIR EL PROTOCOLO FACILITY EN REHAB. PERSONAL A SEGUIR. CONTINE CON EL MEDICAMENTO SEGN LO INDICADO Referrals: Jessee Chávez MD [Staff Provider] - Errol Patino MD [Staff Provider] - Rachell Lambert MD [Staff Provider] - Edna Shaffer MD [Primary Care Provider] - Follow up with primary <Davon DIETRICH,[facility] - Last Filed: 08/02/17 13:55> Provider - Provider Date of Admission: 07/19/17 21:31 Attending physician: Nik Nichols MD Primary care physician: Edna Shaffer MD Hospital Course - Lab Results Lab Results: Micro Results 07/25/17 23:00 Nose MRSA Culture (Admit) - Final MRSA NOT DETECTED Most Recent Lab Values WBC 7.9 10^3/ul (4.5-11.0) 07/31/17 06:55 RBC 3.03 10^6/uL (3.5-6.1) L 07/31/17 06:55 Hgb 8.7 g/dL (12.0-16.0) L 07/31/17 06:55 Hct 27.3 % (36.0-48.0) L 07/31/17 06:55 MCV 90.1 fl (80.0-105.0) 07/31/17 06:55 MCH 28.7 pg (25.0-35.0) 07/31/17 06:55 MCHC 31.9 g/dl (31.0-37.0) 07/31/17 06:55 RDW 13.3 % (11.5-14.5) 07/31/17 06:55 Plt Count 167 10^3/uL (120.0-450.0) 07/31/17 06:55 MPV 8.9 fl (7.0-11.0) 07/31/17 06:55 Gran % 81.2 % (50.0-68.0) H 07/31/17 06:55 Lymph % (Auto) 12.9 % (22.0-35.0) L 07/31/17 06:55 Barren % (Auto) 4.3 % (1.0-6.0) 07/31/17 06:55 Eos % (Auto) 1.6 % (1.5-5.0) 07/31/17 06:55 Baso % (Auto) 0.0 % (0.0-3.0) 07/31/17 06:55 Gran # 6.44 (1.4-6.5) 07/31/17 06:55 Lymph # 1.0 (1.2-3.4) L 07/31/17 06:55 Barren # 0.3 (0.1-0.6) 07/31/17 06:55 Eos # 0.1 (0.0-0.7) 07/31/17 06:55 Baso # 0.00 K/mm3 (0.0-2.0) 07/31/17 06:55 Neutrophils % (Manual) 93 % (50.0-70.0) H 07/26/17 08:28 Lymphocytes % (Manual) 4 % (22.0-35.0) L 07/26/17 08:28 Monocytes % (Manual) 3 % (1.0-6.0) 07/26/17 08:28 Platelet Evaluation Normal (NORMAL) 07/26/17 08:28 Polychromasia Slight 07/26/17 08:28 Hypochromasia 1+ 07/26/17 08:28 Anisocytosis (manual) 1+ 07/26/17 08:28 Ovalocytes Slight 07/26/17 08:28 Retic Count 2.59 % (0.5-1.5) H 07/22/17 07:00 PT 10.3 Seconds (9.9-11.8) 07/19/17 19:00 INR 0.95 (0.93-1.08) 07/19/17 19:00 APTT 27.0 Seconds (23.7-30.8) 07/19/17 19:00 Sodium 139 mmol/L (132-148) 07/31/17 06:55 Potassium 4.2 mmol/L (3.6-5.0) 07/31/17 06:55 Chloride 103 mmol/L (98-107) 07/31/17 06:55 Carbon Dioxide 30 mmol/L (21-33) 07/31/17 06:55 Anion Gap 10 (10-20) 07/31/17 06:55 BUN 22 mg/dL (7-21) H 07/31/17 06:55 Creatinine 0.8 mg/dL (0.5-1.4) 07/31/17 06:55 Est GFR ( Amer) > 60 07/31/17 06:55 Est GFR (Non-Af Amer) > 60 07/31/17 06:55 POC Glucose (mg/dL) 238 mg/dL (65-110) H 07/31/17 16:14 Random Glucose 203 mg/dL (70-110) H 07/31/17 06:55 Hemoglobin A1c 6.8 % (4.2-6.5) H 07/22/17 08:20 Calcium 8.8 mg/dL (8.4-10.5) 07/31/17 06:55 Phosphorus 3.4 mg/dL (2.5-4.5) 07/31/17 06:55 Magnesium 1.7 mg/dL (1.7-2.2) 07/31/17 06:55 Iron 106 ug/dL (45-180) 07/22/17 07:00 TIBC 288 ug/dL (265-497) 07/22/17 07:00 % Saturation 37 % (20-55) 07/22/17 07:00 Ferritin 350.0 ng/mL 07/22/17 07:00 Total Bilirubin 0.5 mg/dL (0.2-1.3) 07/31/17 06:55 AST 25 U/L (14-36) 07/31/17 06:55 ALT 34 U/L (7-56) 07/31/17 06:55 Alkaline Phosphatase 81 U/L (38-126) 07/31/17 06:55 Troponin I < 0.01 ng/mL 07/19/17 19:00 Total Protein 5.7 g/dL (5.8-8.3) L 07/31/17 06:55 Albumin 3.0 g/dL (3.0-4.8) 07/31/17 06:55 Globulin 2.7 gm/dL 07/31/17 06:55 Albumin/Globulin Ratio 1.1 (1.1-1.8) 07/31/17 06:55 Triglycerides 415 mg/dL (35-160) H 07/19/17 19:00 Cholesterol 220 mg/dL (130-200) H 07/19/17 19:00 LDL Cholesterol Direct 123 mg/dL (0-129) 07/19/17 19:00 HDL Cholesterol 38 mg/dL (29-60) 07/19/17 19:00 Vitamin B12 666 pg/mL (239-931) 07/22/17 07:00 Folate > 20.0 ng/mL 07/22/17 07:00 Urine Color Yellow (YELLOW) 07/19/17 19:30 Urine Appearance Clear (CLEAR) 07/19/17 19:30 Urine pH 6.5 (4.7-8.0) 07/19/17 19:30 Ur Specific Hardaway 1.010 (1.005-1.035) 07/19/17 19:30 Urine Protein Negative mg/dL (<30 mg/dL) 07/19/17 19:30 Urine Glucose (UA) Negative mg/dL (NEGATIVE) 07/19/17 19:30 Urine Ketones Negative mg/dL (NEGATIVE) 07/19/17 19:30 Urine Blood Negative (NEGATIVE) 07/19/17 19:30 Urine Nitrate Negative (NEGATIVE) 07/19/17 19:30 Urine Bilirubin Negative (NEGATIVE) 07/19/17 19:30 Urine Urobilinogen 0.2 E.U./dL (<1 E.U./dL) 07/19/17 19:30 Ur Leukocyte Esterase Trace Pavel/uL (NEGATIVE) H 07/19/17 19:30 Urine RBC Negative /hpf (0-2) 07/19/17 19:30 Urine WBC 2 - 5 /hpf (0-6) 07/19/17 19:30 Ur Epithelial Cells 3 - 4 /hpf (0-5) 07/19/17 19:30 Urine Bacteria Few (NEG) 07/19/17 19:30 Stool Occult Blood Negative (NEGATIVE) 07/23/17 19:00 Blood Type O POSITIVE 07/24/17 19:29 Blood Type Confirm O POSITIVE 07/24/17 21:33 Antibody Screen Negative 07/24/17 19:29 Crossmatch See Detail 07/24/17 19:29 BBK History Checked No verified bt 07/24/17 19:29 Attending/Attestation - Attestation I have personally seen and examined this patient.: Yes I have fully participated in the care of the patient.: Yes I have reviewed all pertinent clinical information, including history, physical exam and plan: Yes Notes (Text): 08/02/17 13:51 Patient was seen and examined with regional medical director. Agreed with resident assessment and plan. 67 yrs old female s/p craniotomy for right Parietal mass,still has left sided weakness improving,she has 4/5 power in left upper and 3/5 in left leg.She is alert and awake and tolerating food. Patient is off steroid, Physical therapy has recommended [facility], Pathology report is not back yet. Patient will be discharged to [facility] and will follow up pathology results with Neuro surgery and her Oncologist.This was discussed in detail with her Management plan was discussed in detail with patient Education was provided.
== END 2017-07-31 18:21 | DRG 26 ==
LOC: ED 17:51 → ERH 21:31 → 2RNO 07-20 00:56 → CCU 07-25 17:44 → 3RSO 07-27 12:31
PROVIDERS: ADMIT Internal Medicine; ATTEND Internal Medicine
PROC: 00B70ZX Excision of Cerebral Hemisphere, Open Approach, Diagnostic (ICD-10-PCS; principal; 2017-07-25 14:00)
DX: C79.31 Secondary malignant neoplasm of brain (principal); G81.94 Hemiplegia, unspecified affecting left nondominant side; R13.10 Dysphagia, unspecified; I10 Essential (primary) hypertension; E11.9 Type 2 diabetes mellitus without complications; D64.9 Anemia, unspecified; E78.5 Hyperlipidemia, unspecified; E78.00 Pure hypercholesterolemia, unspecified; R29.6 Repeated falls; K59.00 Constipation, unspecified; K21.9 Gastro-esophageal reflux disease without esophagitis; J02.9 Acute pharyngitis, unspecified; Z85.42 Personal history of malignant neoplasm of other parts of uterus; Z90.710 Acquired absence of both cervix and uterus; Z90.722 Acquired absence of ovaries, bilateral; Z92.21 Personal history of antineoplastic chemotherapy; Z92.3 Personal history of irradiation; Z90.49 Acquired absence of other specified parts of digestive tract

== ENCOUNTER 2017-08-01 05:27 | Inpatient (IN) | payer MEDICARE, OTHER ==
--- NOTE | 2017-08-01 06:52 | ED PDOC ---
Arrival/HPI - General Time Seen by Provider: 08/01/17 06:46 Historian: Patient - History of Present Illness Narrative History of Present Illness (Text): 08/01/17 06:52 A 67 year old female, whose past medical history includes hypertension, diabetes , and uterine CA, was transferred from [facility] to the emergency department for head CT. Patient reported to [facility] this evening s/p craniotomy. Patient is complaining of headache, nausea and vomiting. Patient is less responsive and unable to obtain more history. Symptom Onset: Sudden Symptom Course: Unchanged Activities at Onset: Rest Modifying Factors (Text): none Past Medical History - Provider Review Nursing Documentation Reviewed: Yes - Infectious Disease Hx of Infectious Diseases: None - Cardiac Hx Cardiac Disorders: Yes Hx Hypertension: Yes - Pulmonary Hx Respiratory Disorders: No Hx Asthma: No (didn't mention) - Neurological Hx Neurological Disorder: No Hx Seizures: No Hx Syncope: No - HEENT Hx HEENT Disorder: Yes Hx Cataracts: Yes - Renal Hx Renal Disorder: No - Endocrine/Metabolic Hx Diabetes Mellitus Type 2: Yes - Hematological/Oncological Hx Blood Disorders: Yes Hx Cancer: Yes (uterine ) Hx Chemotherapy: Yes Other/Comment: Uterus cancer- last cheml in february 2017 - Integumentary Hx Dermatological Disorder: No - Musculoskeletal/Rheumatological Hx Musculoskeletal Disorders: Yes Hx Falls: Yes - Gastrointestinal Hx Gastrointestinal Disorders: No - Genitourinary/Gynecological Hx Genitourinary Disorders: No - Psychiatric Hx Psychophysiologic Disorder: No Hx Substance Use: No - Surgical History Hx Cholecystectomy: Yes Hx Hysterectomy: Yes - Anesthesia Hx Anesthesia: Yes Hx Anesthesia Reactions: No Hx Malignant Hyperthermia: No Family/Social History - Physician Review Nursing Documentation Reviewed: Yes Family/Social History: No Known Family HX Smoking Status: Never Smoked Hx Alcohol Use: No Hx Substance Use: No Allergies/Home Meds Allergies/Adverse Reactions: Allergies Penicillins Allergy (Verified 07/19/17 18:41) ANGIOEDEMA Home Medications: Home Meds Medication Instructions Recorded Confirmed Aspirin [Aspirin Chewable] 81 mg PO DAILY 02/14/16 07/19/17 Atorvastatin Calcium [Lipitor] 40 mg PO DAILY 02/14/16 07/19/17 Gabapentin [Neurontin] 300 mg PO TID 02/14/16 07/19/17 Albuterol HFA [Ventolin HFA 90 2 puff IH Q6 PRN 07/19/17 07/19/17 mcg/actuation (8 g)] Cetirizine HCl [Zyrtec] 10 mg PO PRN 07/19/17 07/19/17 Cholecalciferol [Vitamin D 1000 IU] 50,000 iu PO QWK 07/19/17 07/19/17 Escitalopram [Lexapro] 10 mg PO DAILY 07/19/17 07/19/17 Fluticasone Nasal [Flonase] 2 spray ANNELISE DAILY 07/19/17 07/19/17 Glimepiride [amaRYL] 4 mg PO ACB 07/19/17 07/19/17 Icosapent Ethyl [Vascepa] 2 cap PO DAILY 07/19/17 07/19/17 Lisinopril [Prinivil] 5 mg PO DAILY 07/19/17 07/19/17 Ondansetron [Zofran Tab] 4 mg PO PRN PRN 07/19/17 07/19/17 SITagliptin [Januvia] 100 mg PO DAILY 07/19/17 07/19/17 Review of Systems - Physician Review All systems were reviewed & negative as marked: Yes - Review of Systems Gastrointestinal: Nausea, Vomiting Neurological: Headache Physical Exam Vital Signs Reviewed: Yes Vital Signs Pulse Resp BP Pulse Ox 08/01/17 07:10 90 15 155/61 H 100 Appearance: Positive for: Well-Appearing, Non-Toxic, Comfortable Pain Distress: None Mental Status: Positive for: Alert and Oriented X 3 - Systems Exam Head: Present: Other (sahara to R hemicranium with subcu edema) Pupils: Present: PERRL Extroacular Muscles: Present: EOMI Conjunctiva: Present: Normal Mouth: Present: Moist Mucous Membranes Neck: Present: Normal Range of Motion Respiratory/Chest: Present: Clear to Auscultation, Good Air Exchange. No: Respiratory Distress, Accessory Muscle Use Cardiovascular: Present: Regular Rate and Rhythm, Normal S1, S2. No: Murmurs Abdomen: Present: Normal Bowel Sounds. No: Tenderness, Distention, Peritoneal Signs Back: Present: Normal Inspection Upper Extremity: Present: Normal Inspection. No: Cyanosis, Edema Lower Extremity: Present: Normal Inspection. No: Edema Neurological: Present: GCS=15, CN II-XII Intact, Speech Normal Skin: Present: Warm, Dry, Normal Color. No: Rashes Psychiatric: Present: Alert, Oriented x 3, Normal Insight, Normal Concentration Medical Decision Making ED Course and Treatment: 08/01/17 06:49 Impression: A 67 year old female with headache, nausea and vomiting. Plan: -- EKG -- labs -- Reassess and disposition Prior Visits: Notes and results from previous visits were reviewed. Patient last reported to the emergency department on 07/19/17 for evaluation of left sided weakness s/p multiple falls. Patient was admitted to Hospitalist service on Tele. Patient was discharged on 07/31/17. Progress Notes: EKG: Ordered, reviewed, and independently interpreted the EKG. Rate : 85 BPM Rhythm : NSR Interpretation : Nonspecific ST segment changes, normal intervals, normal axis Dr. Patino called, who advised patient transfer to [facility] and to be admitted to ICU. case d./w dr reyes will accept to icu 08/03/17 08:32 - Lab Interpretations Lab Results: 08/01/17 05:50 08/01/17 05:50 Lab Results 08/01/17 05:50: pO2 41, VBG pH 7.43, VBG pCO2 44.0, VBG HCO3 29.2 H, VBG Total CO2 30.6 H, VBG O2 Sat (Calc) 84.2 H, VBG Base Excess 4.3 H, VBG Potassium 4.6, Sodium 133.0, Chloride 98.0, Glucose 350 H, Lactate 1.9, FiO2 21, Venous Blood Potassium 4.6 08/01/17 05:50: PT 10.2, INR 0.94, APTT 24.9 08/01/17 05:50: Sodium 134, Chloride 95 L, Potassium 4.8, Carbon Dioxide 30, Anion Gap 14, BUN 19, Creatinine 0.9, Est GFR ( Amer) > 60, Est GFR (Non- Af Amer) > 60, Random Glucose 324 H* D, Calcium 9.5, Total Bilirubin 0.9, AST 35 , ALT 41, Alkaline Phosphatase 125, Troponin I 0.04 D, Total Protein 7.2, Albumin 3.8, Globulin 1.1, Albumin/Globulin Ratio 3.5 H 08/01/17 05:50: WBC 19.5 H D, RBC 3.53, Hgb 10.4 L, Hct 31.2 L, MCV 88.4, MCH 29.5, MCHC 33.3, RDW 13.1, Plt Count 187, MPV 9.3 I have reviewed the lab results: Yes - EKG Interpretation Interpreted by ED Physician: Yes Type: 12 lead EKG - Medication Orders Current Medication Orders: Dexamethasone (Decadron Inj) 10 mg IVP Q6 VANIA Last Admin: 08/03/17 05:18 Dose: 10 mg IVP Administration Document 08/03/17 05:18 CHRIS (Rec: 08/03/17 05:19 CHRIS [id number]) Charges for Administration # of IVP Administrations 1 Levetiracetam (Keppra 500mg Ivpb) 500 mg in 100 mls @ 460 mls/hr IVPB Q12 VANIA Last Admin: 08/02/17 21:33 Dose: 460 mls/hr eMAR Start Stop Document 08/02/17 21:33 CHRIS (Rec: 08/02/17 21:34 CHRIS [id number]) Intravenous Solution Start Date 08/02/17 Start Time 21:34 End Date 08/02/17 End time 22:30 Total Infusion Time 56 Insulin Human Regular 100 (units/ Sodium Chloride) 100 mls @ 5 mls/hr IV .Q20H PRN; Protocol; 5 UNITS/HR PRN Reason: TITRATE PER MD ORDER Last Titration: 08/03/17 07:00 Dose: 7 units/hr, 7 mls/hr Titration Intervention Document 08/03/17 07:00 CHRIS (Rec: 08/03/17 07:38 CHRIS [id number]) Titration Intake Titration Intake 1.5 Cumulative Intake 20 Cumulative Intake (Rx) 320 Waste Amount 0 Container Volume 80 Titration Dosing Titration Dose 7 IV Rate 7 Intake/Decrease Increased Cumulative Dose 320 Propofol (Diprivan) 1,000 mg in 100 mls @ 3.239 mls/hr IV .Q24H PRN; Protocol; 5 MCG/KG/MIN PRN Reason: Agitation Last Admin: 08/03/17 01:11 Dose: 9.3 mcg/kg/min, 6.024 mls/hr eMAR Start Stop Document 08/03/17 01:11 CHRIS (Rec: 08/03/17 01:12 CHRIS [id number]) Intravenous Solution Start Date 08/03/17 Start Time 01:11 End Date 09/21/17 Titration Intervention Document 08/03/17 01:11 CHRIS (Rec: 08/03/17 01:12 CHRIS [id number]) Titration Intake Cumulative Intake (Rx) 200 Waste Amount 0 Container Volume 100 Titration Dosing Titration Dose 9.3 IV Rate 6.024 Intake/Decrease Started/Running Cumulative Dose 2000 Sodium Chloride (Hypertonic Saline 3%) 500 mls @ 50 mls/hr IV .Q10H VANIA Last Admin: 08/03/17 01:56 Dose: 50 mls/hr eMAR Start Stop Document 08/03/17 01:56 CHRIS (Rec: 08/03/17 01:57 CHRIS [id number]) Intravenous Solution Start Date 08/03/17 Start Time 01:57 End Date 08/03/17 End time 00:00 Total Infusion Time -117 Vancomycin HCl (Vancomycin 1gm) 1 gm in 250 mls @ 167 mls/hr IVPB Q12H VANIA PRN Reason: Protocol Last Admin: 08/03/17 00:00 Dose: 167 mls/hr eMAR Start Stop Document 08/03/17 00:00 CHRIS (Rec: 08/03/17 01:10 CHRIS [id number]) Intravenous Solution Start Date 08/03/17 Start Time 00:00 End Date 08/03/17 End time 01:35 Total Infusion Time 95 Aztreonam (Azactam 1 Gm) 100 mls @ 100 mls/hr IVPB Q8 VANIA PRN Reason: Protocol Last Admin: 08/03/17 05:17 Dose: 100 mls/hr eMAR Start Stop Document 08/03/17 05:17 CHRIS (Rec: 08/03/17 05:17 CHRIS [id number]) Intravenous Solution Start Date 08/03/17 Start Time 05:17 End Date 08/03/17 End time 06:10 Total Infusion Time 53 Insulin Human Regular (Humulin R Med) 0 units SC Q4H VANIA PRN Reason: Protocol Last Admin: 08/01/17 09:33 Dose: 8 units MAR Blood Glucose Document 08/01/17 09:33 MMA (Rec: 08/01/17 09:33 MMA [id number]) Blood Glucose Finger Stick Blood Glucose (70-120) 354 Subcutaneous Administrations Document 08/01/17 09:33 MMA (Rec: 08/01/17 09:33 MMA [id number]) Injection Site MAR Injection Site Left Abdomen Charges for Administration # of Subcutaneous Administrations 1 Nystatin/Triamcinolone Acetonide (Nystatin/Triamcinolone Cream) 1 ea TOP BID PRN PRN Reason: Excoriation Pantoprazole Sodium (Protonix Inj) 40 mg IVP DAILY [facility] Last Admin: 08/02/17 09:36 Dose: 40 mg IVP Administration Document 08/02/17 09:36 MMA (Rec: 08/02/17 09:37 MMA [id number]) Charges for Administration # of IVP Administrations 1 Discontinued Medications Vancomycin HCl (Vancomycin 1gm) 1 gm in 250 mls @ 166.667 mls/hr IVPB ONCE STA Stop: 08/01/17 09:27 Last Admin: 08/01/17 09:16 Dose: Aztreonam (Azactam 1 Gm) 100 mls @ 100 mls/hr IVPB ONCE ONE Stop: 08/01/17 09:14 Last Admin: 08/01/17 09:22 Dose: Sodium Chloride (Sodium Chloride 0.9%) 1,000 mls @ 100 mls/hr IV .Q10H [facility] Last Admin: 08/01/17 09:45 Dose: 100 mls/hr eMAR Start Stop Document 08/01/17 09:45 MMA (Rec: 08/01/17 09:45 MMA [id number]) Intravenous Solution Start Date 08/01/17 Start Time 09:45 End Date 08/01/17 Acetaminophen (Ofirmev) 1,000 mg in 100 mls @ 400 mls/hr IVPB Q6H PRN PRN Reason: T>99.8 Stop: 08/03/17 08:06 Sodium Chloride (Hypertonic Saline 3%) 500 mls @ 100 mls/hr IV .Q5H VANIA Stop: 08/01/17 11:59 Last Admin: 08/01/17 11:11 Dose: 100 mls/hr eMAR Start Stop Document 08/01/17 11:11 MMA (Rec: 08/01/17 11:12 MMA [id number]) Intravenous Solution Start Date 08/01/17 Start Time 11:11 End Date 08/01/17 End time 16:15 Total Infusion Time 304 - Scribe Statement The provider has reviewed the documentation as recorded by the Evelyne Rehman Provider Scribe Attestation: All medical record entries made by the Jieibjeana were at my direction and personally dictated by me. I have reviewed the chart and agree that the record accurately reflects my personal performance of the history, physical exam, medical decision making, and the department course for this patient. I have also personally directed, reviewed, and agree with the discharge instructions and disposition. Disposition/Present on Arrival - Present on Arrival Any Indicators Present on Arrival: No History of DVT/PE: No History of Uncontrolled Diabetes: No Urinary Catheter: No History Surgical Site Infection Following: None - Disposition Have Diagnosis and Disposition been Completed?: Yes Diagnosis: CVA (cerebral vascular accident), Brain mass Disposition: HOSPITALIZED Disposition Time: 07:15 Condition: CRITICAL
[2017-08-01] MEDS ORDERED: Vancomycin 1gm in NS 250ml 1 GM/250 ML BAG IVPB STA (07:58)
[2017-08-01] MEDS ORDERED: Insulin Reg-MEDIUM-Coverage SC SCH (08:00)
[2017-08-01] MEDS ORDERED: Nicardipine 20 MG/200 ML 20 MG/200 ML BAG IV ONE (08:00)
[2017-08-01] MEDS ORDERED: Sodium Chloride 0.9% 1,000 ML IV SCH (08:15)
[2017-08-01] MEDS ORDERED: Aztreonam 1 Gm in NS 100mL 100 ML IVPB ONE (08:15)
[2017-08-01 08:29] LABS: GRAN % 95.8 % (50.0-68.0); HEMATOCRIT 29.1 % (36.0-48.0); LYMPH # 0.6 (1.2-3.4); LYMPH % 3.1 % (22.0-35.0); MEAN CELL VOLUME 87.9 fl (80.0-105.0); MEAN CORPUSCULAR HEMOGLOBIN 29.6 pg (25.0-35.0); MEAN CORPUSCULAR HGB CONC 33.7 g/dl (31.0-37.0); MONO # 0.2 (0.1-0.6); MONO % 1.1 % (1.0-6.0); PLATELET COUNT 179 10^3/uL (120.0-450.0); RED CELL DISTRIBUTION WIDTH 12.8 % (11.5-14.5); WHITE BLOOD COUNT 17.9 10^3/ul (4.5-11.0)
[2017-08-01 08:30] LABS: VENOUS BLOOD PH 7.42 (7.32-7.43)
[2017-08-01 08:40] LABS: INR 0.97 (0.93-1.08); PARTIAL THROMBOPLASTIN TIME 27.3 Seconds (23.7-30.8)
[2017-08-01 08:41] LABS: ALB/GLOB RATIO 1.2 (1.1-1.8); ALKALINE PHOSPHATASE 124 U/L (38-126); ALT/SGPT 46 U/L (7-56); AST/SGOT 26 U/L (14-36); BILIRUBIN,TOTAL 0.8 mg/dL (0.2-1.3); BLOOD UREA NITROGEN 18 mg/dL (7-21); CALCIUM 9.4 mg/dL (8.4-10.5); CARBON DIOXIDE 27 mmol/L (21-33); CHLORIDE 97 mmol/L (98-107); GFR AFRICAN-AMERICAN > 60; POTASSIUM 4.1 mmol/L (3.6-5.0); SODIUM 136 mmol/L (132-148); TOTAL PROTEIN 6.9 g/dL (5.8-8.3)
[2017-08-01 08:48] LABS: NEUTROPHIL 95 % (50.0-70.0)
[2017-08-01 08:49] LABS: ANISOCYTOSIS SLIGHT; HYPOCHROMIA SLIGHT; PLATELET ESTIMATE NORMAL (NORMAL)
[2017-08-01 08:54] LABS: GLUCOSE,RANDOM 384 mg/dL (70-110)
[2017-08-01 09:32] LABS: ARTERIAL BLOOD GAS PH 7.48 (7.35-7.45); ATERIAL BLOOD GAS PEEP 5
--- NOTE | 2017-08-01 09:37 | CT ---
CT scan of the brain dated 08/01/2017 HISTORY: COMPARISON: No prior studies available comparison TECHNIQUE: Contiguous helical/transaxial computed tomography images were obtained through the head/brain without intravenous contrast. Radiation dose: Total exam DLP = 770.52 mGy-cm. This CT exam was performed using one or more of the following dose reduction techniques: Automated exposure control, adjustment of the mA and/or kV according to patient size, and/or use of iterative reconstruction technique. . FINDINGS: HEMORRHAGE: Large somewhat elliptical shaped hematoma in the right parasagittal posterior frontoparietal deep white matter measuring approximately 6.4 x 0.4 cm in AP and transverse dimensions. Additionally, there appears multi focal areas of hemorrhage more posterolaterally located in the subcortical white matter of the right posterior frontoparietal region. . This hemorrhage is surrounded by a wide margin of edema. . In addition, there are appears to be a discrete area of low attenuation that could represent some combination of post biopsy air and packing material subjacent to a right posterior parietal craniotomy defect. Five there is significant mass effect with compression of the overlying sulci as well as anterolateral compression of the right lateral ventricle which is shifted across midline. Septum pellucidum is shifted from right to left buttock approximately 12.4 mm. Underlying tumor to be at excluded. . There is mild dilatation of the left lateral ventricle possibly due to compressive effects at the level of the foramen of Monro. IMPRESSION: Large elliptical shaped hemorrhage within the right posterior frontoparietal lobe with surrounding edema and significant mass effect. . Rule out underlying tumor. Right posterior parietal craniotomy defect. Clinic correlation with surgical history the pathology recommended. . There may be some post biopsy sequela (small amount of air and packing material) along the right posterolateral of peripheral margin of the main body of the hemorrhage
[2017-08-01] MEDS: levETIRAcetam 500mg IVPB 500 MG/100 ML BAG IVPB SCH ×2 (09:41→21:56)
[2017-08-01] MEDS ORDERED: Nicardipine 20 MG/200 ML 20 MG/200 ML BAG IV PRN (09:46)
--- NOTE | 2017-08-01 09:52 | CP.PCM.CON ---
History of Present Illness - History of Present Illness History of Present Illness: dictated R posterior MCA hemorrhagic infarct no indication for surgical intervention mgmt per Dr Giang (consider wean/extubation am) Past Patient History - Infectious Disease Hx of Infectious Diseases: None - Past Medical History & Family History Past Medical History?: Yes - Past Social History Smoking Status: Never Smoked - CARDIAC Hx Cardiac Disorders: Yes Hx Hypertension: Yes - PULMONARY Hx Respiratory Disorders: No Hx Asthma: No (didn't mention) - NEUROLOGICAL Hx Neurological Disorder: No Hx Seizures: No Hx Syncope: No - HEENT Hx HEENT Problems: Yes Hx Cataracts: Yes - RENAL Hx Chronic Kidney Disease: No - ENDOCRINE/METABOLIC Hx Diabetes Mellitus Type 2: Yes - HEMATOLOGICAL/ONCOLOGICAL Hx Blood Disorders: Yes Hx Cancer: Yes (uterine ) Hx Chemotherapy: Yes Other/Comment: Uterus cancer- last cheml in february 2017 - INTEGUMENTARY Hx Dermatological Problems: No - MUSCULOSKELETAL/RHEUMATOLOGICAL Hx Musculoskeletal Disorders: Yes Hx Falls: Yes - GASTROINTESTINAL Hx Gastrointestinal Disorders: No - GENITOURINARY/GYNECOLOGICAL Hx Genitourinary Disorders: No - PSYCHIATRIC Hx Psychophysiologic Disorder: No Hx Substance Use: No - SURGICAL HISTORY Hx Cholecystectomy: Yes Hx Hysterectomy: Yes - ANESTHESIA Hx Anesthesia: Yes Hx Anesthesia Reactions: No Hx Malignant Hyperthermia: No Meds Allergies/Adverse Reactions: Allergies Allergy/AdvReac Type Severity Reaction Status Date / Time Penicillins Allergy ANGIOEDEMA Verified 07/19/17 18:41 - Medications Medications: Current Medications Sodium Chloride (Sodium Chloride 0.9%) 1,000 mls @ 100 mls/hr IV .Q10H VANIA Acetaminophen (Ofirmev) 1,000 mg in 100 mls @ 400 mls/hr IVPB Q6H PRN PRN Reason: T>99.8 Stop: 08/03/17 08:06 Levetiracetam (Keppra 500mg Ivpb) 500 mg in 100 mls @ 460 mls/hr IVPB Q12 VANIA Insulin Human Regular 100 (units/ Sodium Chloride) 100 mls @ 5 mls/hr IV .Q20H PRN; Protocol; 5 UNITS/HR PRN Reason: TITRATE PER MD ORDER Insulin Human Regular (Humulin R Med) 0 units SC Q4H VANIA PRN Reason: Protocol Last Admin: 08/01/17 09:33 Dose: 8 units Pantoprazole Sodium (Protonix Inj) 40 mg IVP DAILY [facility] Last Admin: 08/01/17 09:34 Dose: 40 mg Sodium Chloride (Hypertonic Saline 3%) 100 ml IV ONCE ONE Stop: 08/01/17 09:46 Results - Vital Signs Recent Vital Signs: Last Vital Signs Temp 100.6 F H 08/01/17 08:34 Pulse 84 08/01/17 08:34 Resp 15 08/01/17 07:10 BP 155/61 H 08/01/17 07:10 Pulse Ox 100 08/01/17 07:10 - Labs Result Diagrams: 08/01/17 08:20 08/01/17 08:20 Labs: Laboratory Results - last 24 hr 08/01/17 08/01/17 08/01/17 08:20 08:20 08:20 WBC 17.9 H D RBC 3.31 L Hgb 9.8 L Hct 29.1 L MCV 87.9 MCH 29.6 MCHC 33.7 RDW 12.8 Plt Count 179 MPV 9.0 Gran % 95.8 H Lymph % (Auto) 3.1 L [place] % (Auto) 1.1 Eos % (Auto) 0.0 L Baso % (Auto) 0.0 Gran # 17.20 H Lymph # 0.6 L [place] # 0.2 Eos # 0.0 Baso # 0.00 Neutrophils % (Manual) 95 H Lymphocytes % (Manual) 4 L Monocytes % (Manual) 1 Platelet Evaluation Normal Hypochromasia Slight Anisocytosis (manual) Slight PT 10.5 INR 0.97 APTT 27.3 pO2 VBG pH VBG pCO2 VBG HCO3 VBG Total CO2 VBG O2 Sat (Calc) VBG Base Excess VBG Potassium Sodium 136 Chloride 97 L Glucose Lactate FiO2 Potassium 4.1 Carbon Dioxide 27 Anion Gap 16 BUN 18 Creatinine 0.9 Est GFR ( Amer) > 60 Est GFR (Non-Af Amer) > 60 POC Glucose (mg/dL) Random Glucose 384 H* D Calcium 9.4 Total Bilirubin 0.8 AST 26 ALT 46 Alkaline Phosphatase 124 Total Protein 6.9 Albumin 3.8 Globulin 3.1 Albumin/Globulin Ratio 1.2 Venous Blood Potassium 08/01/17 08/01/17 08:20 09:07 WBC RBC Hgb Hct MCV MCH MCHC RDW Plt Count MPV Gran % Lymph % (Auto) [place] % (Auto) Eos % (Auto) Baso % (Auto) Gran # Lymph # [place] # Eos # Baso # Neutrophils % (Manual) Lymphocytes % (Manual) Monocytes % (Manual) Platelet Evaluation Hypochromasia Anisocytosis (manual) PT INR APTT pO2 42 VBG pH 7.42 VBG pCO2 45.0 VBG HCO3 29.2 H VBG Total CO2 30.6 H VBG O2 Sat (Calc) 82.7 H VBG Base Excess 4.0 H VBG Potassium 4.1 Sodium 135.0 Chloride 99.0 Glucose 407 H* Lactate 1.4 FiO2 21.0 Potassium Carbon Dioxide Anion Gap BUN Creatinine Est GFR ( Amer) Est GFR (Non-Af Amer) POC Glucose (mg/dL) 354 H Random Glucose Calcium Total Bilirubin AST ALT Alkaline Phosphatase Total Protein Albumin Globulin Albumin/Globulin Ratio Venous Blood Potassium 4.1
[2017-08-01] MEDS ORDERED: Sodium Chloride 3% 500 ML IV SCH (11:00)
[2017-08-01] MEDS: Propofol 10 mg/ml 1,000 MG/100 ML VIAL IV PRN (11:33)
--- NOTE | 2017-08-01 12:35 | RAD ---
HISTORY: fever COMPARISON: Comparison chest 07/19/2017 FINDINGS: In situ ETT, tip of which lies approximately 1.7 cm above kerri. NGT is present, tip of which has not been included on this film though distal aspect does lie well below EG junction. No change left IJ MediPort. LUNGS: Mild bibasilar atelectasis with what appears represent small left and possibly tiny right effusion. . PLEURA: No significant pleural effusion identified, no pneumothorax apparent. CARDIOVASCULAR: Cardiomegaly. OSSEOUS STRUCTURES: No significant abnormalities. VISUALIZED UPPER ABDOMEN: Normal. OTHER FINDINGS: None. IMPRESSION: ETT and NGT as above. Mild bibasilar atelectasis with what appears represent small left and possibly tiny right effusion. .
[2017-08-01] MEDS: Insulin Regular 100 UNITS in Sodium Chloride 0.9% 99 ML IV PRN ×2 (13:08→16:40)
--- NOTE | 2017-08-01 14:32 | CP.PCM.CON ---
<Kenan Thurman - Last Filed: 08/01/17 22:11> History of Present Illness - History of Present Illness History of Present Illness: Neurology Consult Note for Dr. Giang Service Consulted for: ICH This is a 67 yo F with PMH of Uterine Ca (s/p chemo/rads, total hysterectomy, and b/l salpingo-oophrectomy), DM2, HTN, HLD, and disc disease who [place] [facility] [place] nausea, emesis, headache, and increasingly obtunded state. HPI and ROS limited as patient is intubated and largely unresponsive at time of exam. She was discharged [place] [facility] [place] admission for L- sided weakness and falls, in which she was found to have a 5.1x3.5cm cystic mass in the R parietal lobe, for which she underwent craniotomy and excisional biopsy (07/25/17). At time of discharge yesterday, as per primary team, she was AAOx3, with some residual but improving L-sided weakness. As per charting by ED , patient became rapidly less responsive, complaining of headache, and had episodes of emesis. Neurosurgery was called by the rehab center, who instructed that the patient be sent to [facility] [place] and admission to the ICU. CT head was obtained and notable for new onset large elliptical-shaped hemorrhage in right frontoparietal lobe with surrounding edema and mass effect. Neurosurgery examined the patient in the ICU, and stated no surgical intervention indicated, medical management as per Neurology. At time of exam, patient is intubated, not on sedation, minimally responsive ( opens eyes to loud verbal stimuli/noxious physical stimuli, tracks staff in room briefly before closing eyes, retracts from pain). On Cardene drip for BP control. SBPs initially 170's-180's in the ICU, 160's at time of exam. PMH: as above PSH: total hysterectomy, b/l salpingo-oophrectomy, cholecystectomy SHx: denied tobacco/etoh/drug use, as per prior charting FHx: Breast CA (mother), as per prior charting PMD: Dr. Russell ([facility]) Review of Systems - Review of Systems Systems not reviewed;Unavailable: Intubated Past Patient History - Infectious Disease Hx of Infectious Diseases: None - Past Medical History & Family History Past Medical History?: Yes - Past Social History Smoking Status: Never Smoked - CARDIAC Hx Cardiac Disorders: Yes Hx Hypertension: Yes - PULMONARY Hx Respiratory Disorders: No Hx Asthma: No (didn't mention) - NEUROLOGICAL Hx Neurological Disorder: No Hx Seizures: No Hx Syncope: No - HEENT Hx HEENT Problems: Yes Hx Cataracts: Yes - RENAL Hx Chronic Kidney Disease: No - ENDOCRINE/METABOLIC Hx Diabetes Mellitus Type 2: Yes - HEMATOLOGICAL/ONCOLOGICAL Hx Blood Disorders: Yes Hx Cancer: Yes (uterine ) Hx Chemotherapy: Yes Other/Comment: Uterus cancer- last cheml in february 2017 - INTEGUMENTARY Hx Dermatological Problems: No - MUSCULOSKELETAL/RHEUMATOLOGICAL Hx Musculoskeletal Disorders: Yes Hx Falls: Yes - GASTROINTESTINAL Hx Gastrointestinal Disorders: No - GENITOURINARY/GYNECOLOGICAL Hx Genitourinary Disorders: No - PSYCHIATRIC Hx Psychophysiologic Disorder: No Hx Substance Use: No - SURGICAL HISTORY Hx Cholecystectomy: Yes Hx Hysterectomy: Yes - ANESTHESIA Hx Anesthesia: Yes Hx Anesthesia Reactions: No Hx Malignant Hyperthermia: No Meds Allergies/Adverse Reactions: Allergies Allergy/AdvReac Type Severity Reaction Status Date / Time Penicillins Allergy ANGIOEDEMA Verified 07/19/17 18:41 - Medications Medications: Current Medications Sodium Chloride (Sodium Chloride 0.9%) 1,000 mls @ 100 mls/hr IV .Q10H VANIA Last Admin: 08/01/17 09:45 Dose: 100 mls/hr Acetaminophen (Ofirmev) 1,000 mg in 100 mls @ 400 mls/hr IVPB Q6H PRN PRN Reason: T>99.8 Stop: 08/03/17 08:06 Levetiracetam (Keppra 500mg Ivpb) 500 mg in 100 mls @ 460 mls/hr IVPB Q12 VANIA Last Admin: 08/01/17 09:41 Dose: 460 mls/hr Insulin Human Regular 100 (units/ Sodium Chloride) 100 mls @ 5 mls/hr IV .Q20H PRN; Protocol; 5 UNITS/HR PRN Reason: TITRATE PER MD ORDER Last Titration: 08/01/17 13:10 Dose: 24 units/hr, 24 mls/hr Propofol (Diprivan) 1,000 mg in 100 mls @ 3.239 mls/hr IV .Q24H PRN; Protocol; 5 MCG/KG/MIN PRN Reason: Agitation Last Admin: 08/01/17 11:33 Dose: 5 mcg/kg/min, 3.239 mls/hr Insulin Human Regular (Humulin R Med) 0 units SC Q4H VANIA PRN Reason: Protocol Last Admin: 08/01/17 09:33 Dose: 8 units Pantoprazole Sodium (Protonix Inj) 40 mg IVP DAILY [facility] Last Admin: 08/01/17 09:34 Dose: 40 mg Physical Exam - Constitutional Appears: No Acute Distress, Chronically Ill, Other (minimally responsive, lethargic) - Head Exam Head Exam: ATRAUMATIC, NORMAL INSPECTION, NORMOCEPHALIC - Eye Exam Eye Exam: Normal appearance. absent: Conjunctival injection, Scleral icterus Pupil Exam: absent: Irregular, Unequal Additional comments: Opens eyes to loud verbal or noxious physical stimuli, tracks staff in room briefly, then closes eyes again - ENT Exam ENT Exam: absent: Mucous Membranes Dry Additional comments: Intubated - Neck Exam Neck exam: Negative for: Lymphadenopathy, Thyromegaly Additional comments: no spontaneous movement - Respiratory Exam Respiratory Exam: Rales (faint rales in all carl). absent: Accessory Muscle Use, Chest Wall Tenderness, Clear to Auscultation Bilateral, Rhonchi, Wheezes Additional comments: intubated and ventilated, on PS trial at time of exam - Cardiovascular Exam Cardiovascular Exam: REGULAR RHYTHM, RRR, +S1, +S2. absent: Bradycardia, Tachycardia, Irregular Rhythm, JVD, +S4 - GI/Abdominal Exam GI & Abdominal Exam: Normal Bowel Sounds, Soft. absent: Distended, Firm, Rigid - Extremities Exam Extremities exam: Positive for: pedal pulses present. Negative for: joint swelling, pedal edema - Neurological Exam Additional comments: intubated but not sedated, minimally responsive, not following commands opens eyes to loud verbal or noxious physical stimuli, briefly tracks staff in room then closes again minimal spontaneous movement of any of extremities GCS 8 (E3, V1(intubated), M4) - Psychiatric Exam Additional comments: unable to assess as non-verbal - Skin Skin Exam: Dry, Intact, Normal Color, Warm Results - Vital Signs Recent Vital Signs: Last Vital Signs Temp 100.6 F H 08/01/17 08:34 Pulse 89 08/01/17 10:00 Resp 15 08/01/17 07:10 BP 155/61 H 08/01/17 07:10 Pulse Ox 100 08/01/17 07:10 - Labs Result Diagrams: 08/01/17 08:20 08/01/17 14:00 Labs: Laboratory Results - last 24 hr 08/01/17 08/01/17 08/01/17 08:20 08:20 08:20 WBC 17.9 H D RBC 3.31 L Hgb 9.8 L Hct 29.1 L MCV 87.9 MCH 29.6 MCHC 33.7 RDW 12.8 Plt Count 179 MPV 9.0 Gran % 95.8 H Lymph % (Auto) 3.1 L Power % (Auto) 1.1 Eos % (Auto) 0.0 L Baso % (Auto) 0.0 Gran # 17.20 H Lymph # 0.6 L Power # 0.2 Eos # 0.0 Baso # 0.00 Neutrophils % (Manual) 95 H Lymphocytes % (Manual) 4 L Monocytes % (Manual) 1 Platelet Evaluation Normal Hypochromasia Slight Anisocytosis (manual) Slight PT 10.5 INR 0.97 APTT 27.3 pCO2 pO2 HCO3 ABG pH ABG Total CO2 ABG O2 Saturation ABG Base Excess ABG Potassium VBG pH VBG pCO2 VBG HCO3 VBG Total CO2 VBG O2 Sat (Calc) VBG Base Excess VBG Potassium Sodium 136 Chloride 97 L Glucose Lactate FiO2 PEEP Pressure Support Potassium 4.1 Carbon Dioxide 27 Anion Gap 16 BUN 18 Creatinine 0.9 Est GFR ( Amer) > 60 Est GFR (Non-Af Amer) > 60 POC Glucose (mg/dL) Random Glucose 384 H* D Serum Osmolality Calcium 9.4 Total Bilirubin 0.8 AST 26 ALT 46 Alkaline Phosphatase 124 Total Protein 6.9 Albumin 3.8 Globulin 3.1 Albumin/Globulin Ratio 1.2 Arterial Blood Potassium Venous Blood Potassium 08/01/17 08/01/17 08/01/17 08:20 09:07 09:25 WBC RBC Hgb Hct MCV MCH MCHC RDW Plt Count MPV Gran % Lymph % (Auto) Power % (Auto) Eos % (Auto) Baso % (Auto) Gran # Lymph # Power # Eos # Baso # Neutrophils % (Manual) Lymphocytes % (Manual) Monocytes % (Manual) Platelet Evaluation Hypochromasia Anisocytosis (manual) PT INR APTT pCO2 39 pO2 42 101.0 H HCO3 29.0 H ABG pH 7.48 H ABG Total CO2 30.2 H ABG O2 Saturation 99.4 H ABG Base Excess 5.2 H ABG Potassium 3.9 VBG pH 7.42 VBG pCO2 45.0 VBG HCO3 29.2 H VBG Total CO2 30.6 H VBG O2 Sat (Calc) 82.7 H VBG Base Excess 4.0 H VBG Potassium 4.1 Sodium 135.0 135.0 Chloride 99.0 102.0 Glucose 407 H* 399 H Lactate 1.4 1.1 FiO2 21.0 40.0 PEEP 5 Pressure Support 5 Potassium Carbon Dioxide Anion Gap BUN Creatinine Est GFR ( Amer) Est GFR (Non-Af Amer) POC Glucose (mg/dL) 354 H Random Glucose Serum Osmolality Calcium Total Bilirubin AST ALT Alkaline Phosphatase Total Protein Albumin Globulin Albumin/Globulin Ratio Arterial Blood Potassium 3.9 Venous Blood Potassium 4.1 08/01/17 08/01/17 08/01/17 11:13 11:32 12:17 WBC RBC Hgb Hct MCV MCH MCHC RDW Plt Count MPV Gran % Lymph % (Auto) Power % (Auto) Eos % (Auto) Baso % (Auto) Gran # Lymph # Power # Eos # Baso # Neutrophils % (Manual) Lymphocytes % (Manual) Monocytes % (Manual) Platelet Evaluation Hypochromasia Anisocytosis (manual) PT INR APTT pCO2 pO2 HCO3 ABG pH ABG Total CO2 ABG O2 Saturation ABG Base Excess ABG Potassium VBG pH VBG pCO2 VBG HCO3 VBG Total CO2 VBG O2 Sat (Calc) VBG Base Excess VBG Potassium Sodium Chloride Glucose Lactate FiO2 PEEP Pressure Support Potassium Carbon Dioxide Anion Gap BUN Creatinine Est GFR ( Amer) Est GFR (Non-Af Amer) POC Glucose (mg/dL) 378 H 404 H* Random Glucose Serum Osmolality 303 H Calcium Total Bilirubin AST ALT Alkaline Phosphatase Total Protein Albumin Globulin Albumin/Globulin Ratio Arterial Blood Potassium Venous Blood Potassium Assessment & Plan - Assessment and Plan (Free Text) Assessment: This is a 67 yo F with PMH of Uterine Ca (s/p chemo/rads, total hysterectomy, and b/l salpingo-oophrectomy), DM2, HTN, HLD, and disc disease who [place] [facility] [place], emesis, headache, and increasingly obtunded state. 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 As per Neurosurgery, no acute surgical intervention at this time, defers to Neuro for management. Will control BP to prevent worsening, patient on Cardene drip for BP, goal is 120's-130's systolic. CT head notable for new onset large elliptical-shaped hemorrhage in right frontoparietal lobe with surrounding edema and mass effect. Brain MRI notable for interval appearance of foci of acute hemorrhage at the right posterior frontal/parietal lobe (consistent with hemorrhage seen on CT), and moderate to large edema surrounding the foci of hemorrhage resulting in mass effect on the lateral ventricle and approximately 14 millimeter [id number] midline shift. In additional discussion with Neurosurg, notes that this is malignant metastatic mass with poor prognosis, and surgery would not likely be helpful, as patient is at high risk for immediate morbidity. Continue medical management for now. Plan: 1) Started on Hypertonic saline, goal is Na >= 150 2) Maintain Blood glucose 140-180 3) Maintain normothermia 4) Head of bed to 30 degrees for aspiration precaution 5) Additional medical management as per ICU Patient reviewed and discussed with attending, Dr. Giang. <Jovani Giang - Last Filed: 08/02/17 09:19> Meds - Medications Medications: Current Medications Dexamethasone (Decadron Inj) 10 mg IVP Q6 VANIA Last Admin: 08/02/17 05:04 Dose: 10 mg Acetaminophen (Ofirmev) 1,000 mg in 100 mls @ 400 mls/hr IVPB Q6H PRN PRN Reason: T>99.8 Stop: 08/03/17 08:06 Levetiracetam (Keppra 500mg Ivpb) 500 mg in 100 mls @ 460 mls/hr IVPB Q12 VANIA Last Admin: 08/01/17 21:56 Dose: 460 mls/hr Insulin Human Regular 100 (units/ Sodium Chloride) 100 mls @ 5 mls/hr IV .Q20H PRN; Protocol; 5 UNITS/HR PRN Reason: TITRATE PER MD ORDER Last Titration: 08/02/17 08:24 Dose: 7 units/hr, 7 mls/hr Propofol (Diprivan) 1,000 mg in 100 mls @ 3.239 mls/hr IV .Q24H PRN; Protocol; 5 MCG/KG/MIN PRN Reason: Agitation Last Titration: 08/02/17 02:32 Dose: 1.5 mcg/kg/min, 0.972 mls/hr Sodium Chloride (Hypertonic Saline 3%) 500 mls @ 50 mls/hr IV .Q10H VANIA Last Admin: 08/02/17 05:12 Dose: 50 mls/hr Insulin Human Regular (Humulin R Med) 0 units SC Q4H VANIA PRN Reason: Protocol Last Admin: 08/01/17 09:33 Dose: 8 units Nystatin/Triamcinolone Acetonide (Nystatin/Triamcinolone Cream) 1 ea TOP BID PRN PRN Reason: Excoriation Pantoprazole Sodium (Protonix Inj) 40 mg IVP DAILY VANIA Last Admin: 08/01/17 09:34 Dose: 40 mg Results - Vital Signs Recent Vital Signs: Last Vital Signs Temp 99.7 F H 08/01/17 22:00 Pulse 80 08/02/17 06:00 Resp 18 08/01/17 22:00 BP 151/71 H 08/01/17 22:00 Pulse Ox 100 08/01/17 22:00 - Labs Result Diagrams: 08/02/17 04:30 08/02/17 04:30 Labs: Laboratory Results - last 24 hr 08/01/17 08/01/17 08/01/17 08:20 08:20 09:25 WBC 17.9 H RBC 3.31 L Hgb 9.8 L Hct 29.1 L MCV 87.9 MCH 29.6 MCHC 33.7 RDW 12.8 Plt Count 179 MPV 9.0 Gran % 95.8 H Lymph % (Auto) 3.1 L Power % (Auto) 1.1 Eos % (Auto) 0.0 L Baso % (Auto) 0.0 Gran # 17.20 H Lymph # 0.6 L Power # 0.2 Eos # 0.0 Baso # 0.00 Neutrophils % (Manual) 95 H Lymphocytes % (Manual) 4 L Monocytes % (Manual) 1 Platelet Evaluation Normal Hypochromasia Slight Anisocytosis (manual) Slight pCO2 39 pO2 101.0 H HCO3 29.0 H ABG pH 7.48 H ABG Total CO2 30.2 H ABG O2 Saturation 99.4 H ABG O2 Content ABG Base Excess 5.2 H ABG Hemoglobin ABG Carboxyhemoglobin POC ABG HHb (Measured) ABG Methemoglobin ABG O2 Capacity ABG Potassium 3.9 VBG pH VBG pCO2 VBG HCO3 VBG Total CO2 VBG O2 Sat (Calc) VBG Base Excess VBG Potassium Hgb O2 Saturation Glucose 399 H Lactate 1.1 FiO2 40.0 PEEP 5 Pressure Support 5 Sodium 136 135.0 Potassium 4.1 Chloride 97 L 102.0 Carbon Dioxide 27 Anion Gap 16 BUN 18 Creatinine 0.9 Est GFR ( Amer) > 60 Est GFR (Non-Af Amer) > 60 POC Glucose (mg/dL) Random Glucose 384 H* Serum Osmolality Calcium 9.4 Phosphorus Magnesium Total Bilirubin 0.8 AST 26 ALT 46 Alkaline Phosphatase 124 Total Protein 6.9 Albumin 3.8 Globulin 3.1 Albumin/Globulin Ratio 1.2 Procalcitonin Arterial Blood Potassium 3.9 Venous Blood Potassium 08/01/17 08/01/17 08/01/17 11:13 11:32 12:17 WBC RBC Hgb Hct MCV MCH MCHC RDW Plt Count MPV Gran % Lymph % (Auto) Power % (Auto) Eos % (Auto) Baso % (Auto) Gran # Lymph # Power # Eos # Baso # Neutrophils % (Manual) Lymphocytes % (Manual) Monocytes % (Manual) Platelet Evaluation Hypochromasia Anisocytosis (manual) pCO2 pO2 HCO3 ABG pH ABG Total CO2 ABG O2 Saturation ABG O2 Content ABG Base Excess ABG Hemoglobin ABG Carboxyhemoglobin POC ABG HHb (Measured) ABG Methemoglobin ABG O2 Capacity ABG Potassium VBG pH VBG pCO2 VBG HCO3 VBG Total CO2 VBG O2 Sat (Calc) VBG Base Excess VBG Potassium Hgb O2 Saturation Glucose Lactate FiO2 PEEP Pressure Support Sodium Potassium Chloride Carbon Dioxide Anion Gap BUN Creatinine Est GFR ( Amer) Est GFR (Non-Af Amer) POC Glucose (mg/dL) 378 H 404 H* Random Glucose Serum Osmolality 303 H Calcium Phosphorus Magnesium Total Bilirubin AST ALT Alkaline Phosphatase Total Protein Albumin Globulin Albumin/Globulin Ratio Procalcitonin Arterial Blood Potassium Venous Blood Potassium 08/01/17 08/01/17 08/01/17 13:06 13:36 13:59 WBC RBC Hgb Hct MCV MCH MCHC RDW Plt Count MPV Gran % Lymph % (Auto) Power % (Auto) Eos % (Auto) Baso % (Auto) Gran # Lymph # Power # Eos # Baso # Neutrophils % (Manual) Lymphocytes % (Manual) Monocytes % (Manual) Platelet Evaluation Hypochromasia Anisocytosis (manual) pCO2 pO2 HCO3 ABG pH ABG Total CO2 ABG O2 Saturation ABG O2 Content ABG Base Excess ABG Hemoglobin ABG Carboxyhemoglobin POC ABG HHb (Measured) ABG Methemoglobin ABG O2 Capacity ABG Potassium VBG pH VBG pCO2 VBG HCO3 VBG Total CO2 VBG O2 Sat (Calc) VBG Base Excess VBG Potassium Hgb O2 Saturation Glucose Lactate FiO2 PEEP Pressure Support Sodium Potassium Chloride Carbon Dioxide Anion Gap BUN Creatinine Est GFR ( Amer) Est GFR (Non-Af Amer) POC Glucose (mg/dL) 315 H 268 H Random Glucose Serum Osmolality Calcium Phosphorus Magnesium Total Bilirubin AST ALT Alkaline Phosphatase Total Protein Albumin Globulin Albumin/Globulin Ratio Procalcitonin 0.16 L Arterial Blood Potassium Venous Blood Potassium 08/01/17 08/01/17 08/01/17 14:00 14:00 15:01 WBC RBC Hgb Hct MCV MCH MCHC RDW Plt Count MPV Gran % Lymph % (Auto) Power % (Auto) Eos % (Auto) Baso % (Auto) Gran # Lymph # Power # Eos # Baso # Neutrophils % (Manual) Lymphocytes % (Manual) Monocytes % (Manual) Platelet Evaluation Hypochromasia Anisocytosis (manual) pCO2 pO2 56 H HCO3 ABG pH ABG Total CO2 ABG O2 Saturation ABG O2 Content ABG Base Excess ABG Hemoglobin ABG Carboxyhemoglobin POC ABG HHb (Measured) ABG Methemoglobin ABG O2 Capacity ABG Potassium VBG pH 7.38 VBG pCO2 47.0 VBG HCO3 27.8 VBG Total CO2 29.2 H VBG O2 Sat (Calc) 93.4 H VBG Base Excess 2.0 VBG Potassium 3.4 L Hgb O2 Saturation Glucose 208 H Lactate 4.7 H* FiO2 21.0 PEEP Pressure Support Sodium 140.0 142 Potassium 3.4 L Chloride 105.0 100 Carbon Dioxide 26 Anion Gap 19 BUN 17 Creatinine 0.8 Est GFR ( Amer) > 60 Est GFR (Non-Af Amer) > 60 POC Glucose (mg/dL) 202 H Random Glucose 197 H Serum Osmolality Calcium 9.5 Phosphorus Magnesium Total Bilirubin AST ALT Alkaline Phosphatase Total Protein Albumin Globulin Albumin/Globulin Ratio Procalcitonin Arterial Blood Potassium Venous Blood Potassium 3.4 L 08/01/17 08/01/17 08/01/17 16:05 18:38 19:56 WBC RBC Hgb Hct MCV MCH MCHC RDW Plt Count MPV Gran % Lymph % (Auto) Power % (Auto) Eos % (Auto) Baso % (Auto) Gran # Lymph # Power # Eos # Baso # Neutrophils % (Manual) Lymphocytes % (Manual) Monocytes % (Manual) Platelet Evaluation Hypochromasia Anisocytosis (manual) pCO2 pO2 HCO3 ABG pH ABG Total CO2 ABG O2 Saturation ABG O2 Content ABG Base Excess ABG Hemoglobin ABG Carboxyhemoglobin POC ABG HHb (Measured) ABG Methemoglobin ABG O2 Capacity ABG Potassium VBG pH VBG pCO2 VBG HCO3 VBG Total CO2 VBG O2 Sat (Calc) VBG Base Excess VBG Potassium Hgb O2 Saturation Glucose Lactate FiO2 PEEP Pressure Support Sodium Potassium Chloride Carbon Dioxide Anion Gap BUN Creatinine Est GFR ( Amer) Est GFR (Non-Af Amer) POC Glucose (mg/dL) 165 H 121 H 96 Random Glucose Serum Osmolality Calcium Phosphorus Magnesium Total Bilirubin AST ALT Alkaline Phosphatase Total Protein Albumin Globulin Albumin/Globulin Ratio Procalcitonin Arterial Blood Potassium Venous Blood Potassium 08/01/17 08/01/17 08/01/17 21:21 22:35 23:04 WBC RBC Hgb Hct MCV MCH MCHC RDW Plt Count MPV Gran % Lymph % (Auto) Power % (Auto) Eos % (Auto) Baso % (Auto) Gran # Lymph # Power # Eos # Baso # Neutrophils % (Manual) Lymphocytes % (Manual) Monocytes % (Manual) Platelet Evaluation Hypochromasia Anisocytosis (manual) pCO2 pO2 36 HCO3 ABG pH ABG Total CO2 ABG O2 Saturation ABG O2 Content ABG Base Excess ABG Hemoglobin ABG Carboxyhemoglobin POC ABG HHb (Measured) ABG Methemoglobin ABG O2 Capacity ABG Potassium VBG pH 7.42 VBG pCO2 50.0 VBG HCO3 32.4 H VBG Total CO2 33.9 H VBG O2 Sat (Calc) 76.3 H VBG Base Excess 6.6 H VBG Potassium 4.3 Hgb O2 Saturation Glucose 153 H Lactate 2.0 FiO2 21.0 PEEP Pressure Support Sodium 142.0 Potassium Chloride 108.0 H Carbon Dioxide Anion Gap BUN Creatinine Est GFR ( Amer) Est GFR (Non-Af Amer) POC Glucose (mg/dL) 136 H 160 H Random Glucose Serum Osmolality Calcium Phosphorus Magnesium Total Bilirubin AST ALT Alkaline Phosphatase Total Protein Albumin Globulin Albumin/Globulin Ratio Procalcitonin Arterial Blood Potassium Venous Blood Potassium 4.3 08/01/17 08/01/17 08/02/17 23:04 23:16 00:31 WBC RBC Hgb Hct MCV MCH MCHC RDW Plt Count MPV Gran % Lymph % (Auto) Power % (Auto) Eos % (Auto) Baso % (Auto) Gran # Lymph # Power # Eos # Baso # Neutrophils % (Manual) Lymphocytes % (Manual) Monocytes % (Manual) Platelet Evaluation Hypochromasia Anisocytosis (manual) pCO2 pO2 HCO3 ABG pH ABG Total CO2 ABG O2 Saturation ABG O2 Content ABG Base Excess ABG Hemoglobin ABG Carboxyhemoglobin POC ABG HHb (Measured) ABG Methemoglobin ABG O2 Capacity ABG Potassium VBG pH VBG pCO2 VBG HCO3 VBG Total CO2 VBG O2 Sat (Calc) VBG Base Excess VBG Potassium Hgb O2 Saturation Glucose Lactate FiO2 PEEP Pressure Support Sodium 142 Potassium 4.1 Chloride 103 Carbon Dioxide 30 Anion Gap 13 BUN 21 Creatinine 0.9 Est GFR ( Amer) > 60 Est GFR (Non-Af Amer) > 60 POC Glucose (mg/dL) 166 H 152 H Random Glucose 145 H Serum Osmolality Calcium 9.4 Phosphorus Magnesium Total Bilirubin AST ALT Alkaline Phosphatase Total Protein Albumin Globulin Albumin/Globulin Ratio Procalcitonin Arterial Blood Potassium Venous Blood Potassium 08/02/17 08/02/17 08/02/17 01:46 02:26 02:35 WBC RBC Hgb Hct MCV MCH MCHC RDW Plt Count MPV Gran % Lymph % (Auto) Power % (Auto) Eos % (Auto) Baso % (Auto) Gran # Lymph # Power # Eos # Baso # Neutrophils % (Manual) Lymphocytes % (Manual) Monocytes % (Manual) Platelet Evaluation Hypochromasia Anisocytosis (manual) pCO2 pO2 31 HCO3 ABG pH ABG Total CO2 ABG O2 Saturation ABG O2 Content ABG Base Excess ABG Hemoglobin ABG Carboxyhemoglobin POC ABG HHb (Measured) ABG Methemoglobin ABG O2 Capacity ABG Potassium VBG pH 7.38 VBG pCO2 52.0 VBG HCO3 30.8 H VBG Total CO2 32.4 H VBG O2 Sat (Calc) 62.2 VBG Base Excess 4.4 H VBG Potassium 3.6 Hgb O2 Saturation Glucose 107 H Lactate 1.8 FiO2 21.0 PEEP Pressure Support Sodium 145.0 Potassium Chloride 112.0 H Carbon Dioxide Anion Gap BUN Creatinine Est GFR ( Amer) Est GFR (Non-Af Amer) POC Glucose (mg/dL) 130 H 104 Random Glucose Serum Osmolality Calcium Phosphorus Magnesium Total Bilirubin AST ALT Alkaline Phosphatase Total Protein Albumin Globulin Albumin/Globulin Ratio Procalcitonin Arterial Blood Potassium Venous Blood Potassium 3.6 08/02/17 08/02/17 08/02/17 03:11 04:30 04:30 WBC 18.0 H RBC 3.27 L Hgb 9.6 L Hct 29.9 L MCV 91.4 D MCH 29.4 MCHC 32.1 RDW 13.3 Plt Count 223 MPV 9.6 Gran % 93.9 H Lymph % (Auto) 4.3 L Power % (Auto) 1.8 Eos % (Auto) 0.0 L Baso % (Auto) 0.0 Gran # 16.90 H Lymph # 0.8 L Power # 0.3 Eos # 0.0 Baso # 0.00 Neutrophils % (Manual) Lymphocytes % (Manual) Monocytes % (Manual) Platelet Evaluation Hypochromasia Anisocytosis (manual) pCO2 pO2 HCO3 ABG pH ABG Total CO2 ABG O2 Saturation ABG O2 Content ABG Base Excess ABG Hemoglobin ABG Carboxyhemoglobin POC ABG HHb (Measured) ABG Methemoglobin ABG O2 Capacity ABG Potassium VBG pH VBG pCO2 VBG HCO3 VBG Total CO2 VBG O2 Sat (Calc) VBG Base Excess VBG Potassium Hgb O2 Saturation Glucose Lactate FiO2 PEEP Pressure Support Sodium 149 H Potassium 3.7 Chloride 107 Carbon Dioxide 30 Anion Gap 16 BUN 24 H Creatinine 1.0 Est GFR ( Amer) > 60 Est GFR (Non-Af Amer) 56 POC Glucose (mg/dL) 136 H Random Glucose 96 Serum Osmolality Calcium 9.8 Phosphorus 3.2 Magnesium 1.9 Total Bilirubin 0.6 AST 25 ALT 35 Alkaline Phosphatase 111 Total Protein 7.2 Albumin 3.7 Globulin 3.5 Albumin/Globulin Ratio 1.0 L Procalcitonin Arterial Blood Potassium Venous Blood Potassium 08/02/17 08/02/17 08/02/17 04:42 05:30 05:47 WBC RBC Hgb Hct MCV MCH MCHC RDW Plt Count MPV Gran % Lymph % (Auto) Power % (Auto) Eos % (Auto) Baso % (Auto) Gran # Lymph # Power # Eos # Baso # Neutrophils % (Manual) Lymphocytes % (Manual) Monocytes % (Manual) Platelet Evaluation Hypochromasia Anisocytosis (manual) pCO2 38 pO2 72.0 L HCO3 26.4 ABG pH 7.45 ABG Total CO2 27.6 ABG O2 Saturation 98.0 ABG O2 Content 11.9 L ABG Base Excess 2.3 ABG Hemoglobin 8.9 L ABG Carboxyhemoglobin 2.5 H POC ABG HHb (Measured) 1.9 ABG Methemoglobin 1.2 ABG O2 Capacity 12.1 L ABG Potassium VBG pH VBG pCO2 VBG HCO3 VBG Total CO2 VBG O2 Sat (Calc) VBG Base Excess VBG Potassium Hgb O2 Saturation 94.5 L Glucose Lactate FiO2 40.0 PEEP Pressure Support Sodium Potassium Chloride Carbon Dioxide Anion Gap BUN Creatinine Est GFR ( Amer) Est GFR (Non-Af Amer) POC Glucose (mg/dL) 158 H 147 H Random Glucose Serum Osmolality Calcium Phosphorus Magnesium Total Bilirubin AST ALT Alkaline Phosphatase Total Protein Albumin Globulin Albumin/Globulin Ratio Procalcitonin Arterial Blood Potassium Venous Blood Potassium 08/02/17 07:49 WBC RBC Hgb Hct MCV MCH MCHC RDW Plt Count MPV Gran % Lymph % (Auto) Power % (Auto) Eos % (Auto) Baso % (Auto) Gran # Lymph # Power # Eos # Baso # Neutrophils % (Manual) Lymphocytes % (Manual) Monocytes % (Manual) Platelet Evaluation Hypochromasia Anisocytosis (manual) pCO2 pO2 HCO3 ABG pH ABG Total CO2 ABG O2 Saturation ABG O2 Content ABG Base Excess ABG Hemoglobin ABG Carboxyhemoglobin POC ABG HHb (Measured) ABG Methemoglobin ABG O2 Capacity ABG Potassium VBG pH VBG pCO2 VBG HCO3 VBG Total CO2 VBG O2 Sat (Calc) VBG Base Excess VBG Potassium Hgb O2 Saturation Glucose Lactate FiO2 PEEP Pressure Support Sodium Potassium Chloride Carbon Dioxide Anion Gap BUN Creatinine Est GFR ( Amer) Est GFR (Non-Af Amer) POC Glucose (mg/dL) 159 H Random Glucose Serum Osmolality Calcium Phosphorus Magnesium Total Bilirubin AST ALT Alkaline Phosphatase Total Protein Albumin Globulin Albumin/Globulin Ratio Procalcitonin Arterial Blood Potassium Venous Blood Potassium Attending/Attestation - Attestation I have personally seen and examined this patient.: Yes I have fully participated in the care of the patient.: Yes I have reviewed all pertinent clinical information: Yes
[2017-08-01 14:52] LABS: VENOUS BLOOD PH 7.38 (7.32-7.43)
[2017-08-01 14:59] LABS: BLOOD UREA NITROGEN 17 mg/dL (7-21); CALCIUM 9.5 mg/dL (8.4-10.5); CARBON DIOXIDE 26 mmol/L (21-33); CHLORIDE 100 mmol/L (98-107); GFR AFRICAN-AMERICAN > 60; GLUCOSE,RANDOM 197 mg/dL (70-110); POTASSIUM 3.4 mmol/L (3.6-5.0); SODIUM 142 mmol/L (132-148)
--- NOTE | 2017-08-01 15:57 | CON ---
DATE: 08/01/2017 HISTORY OF PRESENT ILLNESS: This is a 67-year-old lady with history of hypertension, recent craniotomy for cyst removal who was discharged recently from [facility] and admitted to [facility] for further rehab. Today; however, she had a nausea, vomiting, headache. Reportedly, she reported she was in [facility] for Center for further management and care. The patient was intubated for airway protection and currently she is on pressure support 5/5 with a FIO2 of 40%. She is not on any sedation. CAT scan report is pending and CT scan is in process. No reported chills, sweats, diarrhea or constipation. PAST MEDICAL HISTORY: Hypertension, diabetes, uterine cancer. FAMILY HISTORY: Noncontributory. ALLERGIES: ALLERGIC TO PENICILLIN. HOME MEDICATIONS: Januvia, Zofran, metoprolol, omeprazole, lisinopril, Amaryl, gabapentin, Flonase, Lexapro, Lipitor and aspirin. REVIEW OF SYSTEMS: Review of 12-point review of systems other than mentioned in history of present illness is negative. PHYSICAL EXAMINATION: GENERAL: The patient is on pressure support 5/5 with a FIO2 of 40%, tidal volumes varies between 290 and 330, rapid shallow breathing index is 73. VITAL SIGNS: Blood pressure 175/64, heart rate 92, oxygen saturation is 99%, end-tidal CO2 on the monitor reported, temperature 100.8. HEENT: Head and neck, status post recent craniotomy. LUNGS: Clear to auscultation bilaterally. HEART: Regular rate and rhythm, S1S2 normal. ABDOMEN: Soft, nontender, nondistended, obese. MUSCULOSKELETAL: Trace bilateral pedal and ankle edema. NEUROLOGIC: The patient was noted to move her right upper extremity. SKIN: Color is moist. PSYCH: The patient responded to painful stimuli. LABORATORY DATA: Labs are pending. EKG, CAT scan, EEG are pending. ASSESSMENT AND PLAN: This is a 67-year-old lady who presented with hypertension, nausea, vomiting, altered mental status, intubated for airway protection. Initially evaluated in [facility] and was found to have hemorrhagic infarct. Dr. Patino accepted the patient to [facility] on the hospitalist service. Repeat CAT scan is pending. We will check all labs including CBC, CMP, ABG, coags, ventilator adjustments will be made but based on ABG. Chest x-ray will be checked and EKG is ordered. The patient has low-grade fever of 100.8, which most likely is central in origin, however, toxic cytology cannot be ruled out. The patient is ALLERGIC TO PENICILLIN AND SULFA, started on aztreonam by ER physician. Septic workup is initiated, chest x-ray is pending, aggressive fever control will be instituted with Tylenol IV p.r.n. and cooling blankets. Urine drug screen will be checked as well. We will continue to target euvolemia, euglycemia, normothermia, and oxygen saturation of more than 90%. We will continue with deep venous thrombosis and gastrointestinal prophylaxis (mechanical deep venous thrombosis prophylaxis until intracranial bleed ruled out), I will avoid over and under ventilation and maintain pH between 7.35 and 7.45. Addendum: CTH reviewed--significant edema and mass effect-->3%NS given, propofol started, HOB>35 in neutral position. initially slightly hyperventilated to ph 7.48, then vent setting adjusted-->ph 7.38. Spoke with Dr. 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 Giang-->recommended MRI of the brain to differentiate between ischemic stroke with hemorrhagic conversion vs primary ICH/bleed. EEG done prelim-no seziure. Addendum: spoke with Dr. Deras--prelim path report indicate malignant brain tumor, MRI brain (as per Dr. Giang) likely primary hemorrhage, but in light of poor prognosis in the setting of malignant brain tumor, no Nsx intervention as per Nsx service ccm time 40 min Ramiro Davis MD [facility]
--- NOTE | 2017-08-01 17:55 | MRI ---
PROCEDURE: MRI BRAIN WITHOUT CONTRAST HISTORY: ICH vs stroke COMPARISON: Comparison is made to 07/20/[address] dated 08/01/2017 TECHNIQUE: Multiplanar, multisequence MR images of the brain were obtained without intravenous contrast enhancement. FINDINGS: HEMORRHAGE: There are foci of hyperintense T1 and hypointense T2 GRE at the right posterior frontal and parietal lobe at the region of previously described cystic mass. Findings suspicious for hemorrhage. Given the adjacent craniectomy the possibility of postsurgical hemorrhage should be considered. DWI: There are also foci of diffusion restriction at the right posterior frontal and parietal lobe. There are also foci of edema including vasogenic edema surrounding the heterogeneous signal at the right parietal lobe. BRAIN PARENCHYMA: There is interval worsening of mass effect and [id number] midline shift since the previous exam. Findings likely due to new hemorrhage and edema surrounding the hemorrhage or lesion at the right parietal lobe. The current study demonstrate approximately 40 millimeter [id number] midline shift. There are also foci of hypo intense T1 and T2 signal at the surgical bed may represent postsurgical changes versus foci of air or packing material. VENTRICLES: Significant compressed thin on the right lateral ventricle. The possibility of subfalcine herniation should be considered. CRANIUM: Status post right posterior frontal/parietal craniotomy since the previous exam. ORBITS: Grossly unremarkable. PARANASAL SINUSES/MASTOIDS: Clear VASCULAR SYSTEM: Skull base flow voids intact. OTHER FINDINGS: None. IMPRESSION: Interval appearance of foci of acute hemorrhage at the right posterior frontal/parietal lobe corresponding to foci of hemorrhage seen in the previous same-day CT. Interval appearance of moderate to large edema surrounding the foci of hemorrhage which resulting in mass effect on the lateral ventricle and approximately 14 millimeter [id number] midline shift. The possibility of subfalcine herniation also should be considered. Postsurgical changes and right parietal craniotomy are again noted. Small amount of extra-axial fluid seen.
[2017-08-01] MEDS: Sodium Chloride 3% 500 ML IV SCH (19:01)
--- NOTE | 2017-08-01 19:25 | US ---
PROCEDURE: Bilateral carotid artery duplex ultrasound HISTORY: Carotid stenosis CVA PHYSICIAN(S): Hemant Snowden MD. TECHNIQUE: Duplex sonography and color-flow Doppler were used to evaluate the carotid bifurcations and limited segments of the vertebral arteries bilaterally. FINDINGS: There is mild smooth hypoechoic plaque noted at the carotid bifurcations bilaterally. The peak systolic velocity in the proximal right internal carotid artery is 61 cm/sec. This corresponds to a 20 to 39% proximal right ICA stenosis. Normal systolic velocities are noted in the proximal right external carotid artery. There is antegrade flow in the right vertebral artery. The peak systolic velocity in the proximal left internal carotid artery is 69 cm/sec. This corresponds to a 20 to 39% proximal left ICA stenosis. Normal systolic velocities are noted in the proximal left external carotid artery. There is antegrade flow in the left vertebral artery. IMPRESSION: 1. Bilateral 20-39% proximal ICA stenoses. 2. Antegrade flow in both vertebral arteries.
--- NOTE | 2017-08-01 20:30 | CP.PCM.HP ---
<BulmarojeanaEverett - Last Filed: 08/01/17 21:01> History of Present Illness - History of Present Illness History of Present Illness: A 67 year old spansh speaking female, whose past medical history includes hypertension, diabetes, and uterine CA, [facility] for head CT. Patient reported to [facility] this evening s /p craniotomy here at [facility]. On exam patient was intubated and sedated. ROS could not be obtained. History acquired from prior charts. PMH: Uterine CA (s/p total abdominal hysterectomy w/ B/L salpingo-oophrectomy, radiation and chemotherapy), HTN, DM2, HLD, and ?herniated discs PSH: FITO w/ B/L salpingo-oophrectomy (3yrs ago), cholecystectomy, craniotomy w/ excisional biopsy (07/20/17-) Meds: as per [facility] Pharmacy: [facility] Allergies: PCN (rash), and the cold SHx: denied tobacco/etoh/drug use FHx: Mom (breast CA) PMD: Dr. Edna Russell ([facility]) Onc: Dr. Sharon Gaona ([facility]) Present on Admission - Present on Admission Any Indicators Present on Admission: Yes Review of Systems - Review of Systems All systems: reviewed and no additional remarkable complaints except Review of Systems: As per HPI Past Patient History - Infectious Disease Hx of Infectious Diseases: None - Past Medical History & Family History Past Medical History?: Yes - Past Social History Smoking Status: Never Smoked - CARDIAC Hx Cardiac Disorders: Yes Hx Hypertension: Yes - PULMONARY Hx Respiratory Disorders: No Hx Asthma: No (didn't mention) - NEUROLOGICAL Hx Neurological Disorder: No Hx Seizures: No - HEENT Hx HEENT Problems: Yes Hx Cataracts: Yes - RENAL Hx Chronic Kidney Disease: No - ENDOCRINE/METABOLIC Hx Diabetes Mellitus Type 2: Yes - HEMATOLOGICAL/ONCOLOGICAL Hx Blood Disorders: Yes Hx Cancer: Yes (uterine ) Hx Chemotherapy: Yes Other/Comment: Uterus cancer- last cheml in february 2017 - INTEGUMENTARY Hx Dermatological Problems: No - MUSCULOSKELETAL/RHEUMATOLOGICAL Hx Musculoskeletal Disorders: Yes Hx Falls: Yes - GASTROINTESTINAL Hx Gastrointestinal Disorders: No - GENITOURINARY/GYNECOLOGICAL Hx Genitourinary Disorders: No - PSYCHIATRIC Hx Psychophysiologic Disorder: No - SURGICAL HISTORY Hx Cholecystectomy: Yes Hx Hysterectomy: Yes - ANESTHESIA Hx Anesthesia: Yes Hx Anesthesia Reactions: No Hx Malignant Hyperthermia: No Meds Allergies/Adverse Reactions: Allergies Allergy/AdvReac Type Severity Reaction Status Date / Time Penicillins Allergy ANGIOEDEMA Verified 07/19/17 18:41 Physical Exam - Head Exam Additional comments: Right sided surgical wound in parietal region. Dried blood in area. - Eye Exam Eye Exam: Normal appearance - Respiratory Exam Respiratory Exam: Clear to Auscultation Bilateral - Cardiovascular Exam Cardiovascular Exam: +S1, +S2 - GI/Abdominal Exam GI & Abdominal Exam: Normal Bowel Sounds, Soft. absent: Tenderness - Extremities Exam Extremities exam: Positive for: normal capillary refill, normal inspection, pedal pulses present. Negative for: pedal edema - Neurological Exam Additional comments: sedated - Skin Skin Exam: Normal Color, Warm Results - Vital Signs Recent Vital Signs: Last Vital Signs Temp 97.9 F 08/01/17 19:03 Pulse 85 08/01/17 19:03 Resp 18 08/01/17 19:03 BP 155/61 H 08/01/17 07:10 Pulse Ox 100 08/01/17 07:10 - Labs Result Diagrams: 08/01/17 08:20 08/01/17 14:00 Labs: Laboratory Results - last 24 hr 08/01/17 08/01/17 08/01/17 08:20 08:20 08:20 WBC 17.9 H D RBC 3.31 L Hgb 9.8 L Hct 29.1 L MCV 87.9 MCH 29.6 MCHC 33.7 RDW 12.8 Plt Count 179 MPV 9.0 Gran % 95.8 H Lymph % (Auto) 3.1 L [place] % (Auto) 1.1 Eos % (Auto) 0.0 L Baso % (Auto) 0.0 Gran # 17.20 H Lymph # 0.6 L [place] # 0.2 Eos # 0.0 Baso # 0.00 Neutrophils % (Manual) 95 H Lymphocytes % (Manual) 4 L Monocytes % (Manual) 1 Platelet Evaluation Normal Hypochromasia Slight Anisocytosis (manual) Slight PT 10.5 INR 0.97 APTT 27.3 pCO2 pO2 HCO3 ABG pH ABG Total CO2 ABG O2 Saturation ABG Base Excess ABG Potassium VBG pH VBG pCO2 VBG HCO3 VBG Total CO2 VBG O2 Sat (Calc) VBG Base Excess VBG Potassium Sodium 136 Chloride 97 L Glucose Lactate FiO2 PEEP Pressure Support Potassium 4.1 Carbon Dioxide 27 Anion Gap 16 BUN 18 Creatinine 0.9 Est GFR ( Amer) > 60 Est GFR (Non-Af Amer) > 60 POC Glucose (mg/dL) Random Glucose 384 H* D Serum Osmolality Calcium 9.4 Total Bilirubin 0.8 AST 26 ALT 46 Alkaline Phosphatase 124 Total Protein 6.9 Albumin 3.8 Globulin 3.1 Albumin/Globulin Ratio 1.2 Procalcitonin Arterial Blood Potassium Venous Blood Potassium 08/01/17 08/01/17 08/01/17 08:20 09:07 09:25 WBC RBC Hgb Hct MCV MCH MCHC RDW Plt Count MPV Gran % Lymph % (Auto) [place] % (Auto) Eos % (Auto) Baso % (Auto) Gran # Lymph # [place] # Eos # Baso # Neutrophils % (Manual) Lymphocytes % (Manual) Monocytes % (Manual) Platelet Evaluation Hypochromasia Anisocytosis (manual) PT INR APTT pCO2 39 pO2 42 101.0 H HCO3 29.0 H ABG pH 7.48 H ABG Total CO2 30.2 H ABG O2 Saturation 99.4 H ABG Base Excess 5.2 H ABG Potassium 3.9 VBG pH 7.42 VBG pCO2 45.0 VBG HCO3 29.2 H VBG Total CO2 30.6 H VBG O2 Sat (Calc) 82.7 H VBG Base Excess 4.0 H VBG Potassium 4.1 Sodium 135.0 135.0 Chloride 99.0 102.0 Glucose 407 H* 399 H Lactate 1.4 1.1 FiO2 21.0 40.0 PEEP 5 Pressure Support 5 Potassium Carbon Dioxide Anion Gap BUN Creatinine Est GFR ( Amer) Est GFR (Non-Af Amer) POC Glucose (mg/dL) 354 H Random Glucose Serum Osmolality Calcium Total Bilirubin AST ALT Alkaline Phosphatase Total Protein Albumin Globulin Albumin/Globulin Ratio Procalcitonin Arterial Blood Potassium 3.9 Venous Blood Potassium 4.1 08/01/17 08/01/17 08/01/17 11:13 11:32 12:17 WBC RBC Hgb Hct MCV MCH MCHC RDW Plt Count MPV Gran % Lymph % (Auto) [place] % (Auto) Eos % (Auto) Baso % (Auto) Gran # Lymph # [place] # Eos # Baso # Neutrophils % (Manual) Lymphocytes % (Manual) Monocytes % (Manual) Platelet Evaluation Hypochromasia Anisocytosis (manual) PT INR APTT pCO2 pO2 HCO3 ABG pH ABG Total CO2 ABG O2 Saturation ABG Base Excess ABG Potassium VBG pH VBG pCO2 VBG HCO3 VBG Total CO2 VBG O2 Sat (Calc) VBG Base Excess VBG Potassium Sodium Chloride Glucose Lactate FiO2 PEEP Pressure Support Potassium Carbon Dioxide Anion Gap BUN Creatinine Est GFR ( Amer) Est GFR (Non-Af Amer) POC Glucose (mg/dL) 378 H 404 H* Random Glucose Serum Osmolality 303 H Calcium Total Bilirubin AST ALT Alkaline Phosphatase Total Protein Albumin Globulin Albumin/Globulin Ratio Procalcitonin Arterial Blood Potassium Venous Blood Potassium 08/01/17 08/01/17 08/01/17 13:06 13:36 13:59 WBC RBC Hgb Hct MCV MCH MCHC RDW Plt Count MPV Gran % Lymph % (Auto) [place] % (Auto) Eos % (Auto) Baso % (Auto) Gran # Lymph # [place] # Eos # Baso # Neutrophils % (Manual) Lymphocytes % (Manual) Monocytes % (Manual) Platelet Evaluation Hypochromasia Anisocytosis (manual) PT INR APTT pCO2 pO2 HCO3 ABG pH ABG Total CO2 ABG O2 Saturation ABG Base Excess ABG Potassium VBG pH VBG pCO2 VBG HCO3 VBG Total CO2 VBG O2 Sat (Calc) VBG Base Excess VBG Potassium Sodium Chloride Glucose Lactate FiO2 PEEP Pressure Support Potassium Carbon Dioxide Anion Gap BUN Creatinine Est GFR ( Amer) Est GFR (Non-Af Amer) POC Glucose (mg/dL) 315 H 268 H Random Glucose Serum Osmolality Calcium Total Bilirubin AST ALT Alkaline Phosphatase Total Protein Albumin Globulin Albumin/Globulin Ratio Procalcitonin 0.16 L Arterial Blood Potassium Venous Blood Potassium 08/01/17 08/01/17 08/01/17 14:00 14:00 15:01 WBC RBC Hgb Hct MCV MCH MCHC RDW Plt Count MPV Gran % Lymph % (Auto) [place] % (Auto) Eos % (Auto) Baso % (Auto) Gran # Lymph # [place] # Eos # Baso # Neutrophils % (Manual) Lymphocytes % (Manual) Monocytes % (Manual) Platelet Evaluation Hypochromasia Anisocytosis (manual) PT INR APTT pCO2 pO2 56 H HCO3 ABG pH ABG Total CO2 ABG O2 Saturation ABG Base Excess ABG Potassium VBG pH 7.38 VBG pCO2 47.0 VBG HCO3 27.8 VBG Total CO2 29.2 H VBG O2 Sat (Calc) 93.4 H VBG Base Excess 2.0 VBG Potassium 3.4 L Sodium 140.0 142 Chloride 105.0 100 Glucose 208 H Lactate 4.7 H* FiO2 21.0 PEEP Pressure Support Potassium 3.4 L Carbon Dioxide 26 Anion Gap 19 BUN 17 Creatinine 0.8 Est GFR ( Amer) > 60 Est GFR (Non-Af Amer) > 60 POC Glucose (mg/dL) 202 H Random Glucose 197 H Serum Osmolality Calcium 9.5 Total Bilirubin AST ALT Alkaline Phosphatase Total Protein Albumin Globulin Albumin/Globulin Ratio Procalcitonin Arterial Blood Potassium Venous Blood Potassium 3.4 L 08/01/17 08/01/17 08/01/17 16:05 18:38 19:56 WBC RBC Hgb Hct MCV MCH MCHC RDW Plt Count MPV Gran % Lymph % (Auto) [place] % (Auto) Eos % (Auto) Baso % (Auto) Gran # Lymph # [place] # Eos # Baso # Neutrophils % (Manual) Lymphocytes % (Manual) Monocytes % (Manual) Platelet Evaluation Hypochromasia Anisocytosis (manual) PT INR APTT pCO2 pO2 HCO3 ABG pH ABG Total CO2 ABG O2 Saturation ABG Base Excess ABG Potassium VBG pH VBG pCO2 VBG HCO3 VBG Total CO2 VBG O2 Sat (Calc) VBG Base Excess VBG Potassium Sodium Chloride Glucose Lactate FiO2 PEEP Pressure Support Potassium Carbon Dioxide Anion Gap BUN Creatinine Est GFR ( Amer) Est GFR (Non-Af Amer) POC Glucose (mg/dL) 165 H 121 H 96 Random Glucose Serum Osmolality Calcium Total Bilirubin AST ALT Alkaline Phosphatase Total Protein Albumin Globulin Albumin/Globulin Ratio Procalcitonin Arterial Blood Potassium Venous Blood Potassium Assessment & Plan - Assessment and Plan (Free Text) Assessment: This is a 67 yo F with PMH of Uterine Ca (s/p chemo/rads, total hysterectomy, and b/l salpingo-oophrectomy), DM2, HTN, HLD, and disc disease who represents to [facility] with nausea, emesis, headache, and increasingly obtunded state. 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 She was intubated for airway protection. Plan: Hemorrhagic CVA with midline Shift - CT head notable for new onset large elliptical-shaped hemorrhage in right frontoparietal lobe with surrounding edema and mass effect. Brain MRI notable for interval appearance of foci of acute hemorrhage at the right posterior frontal/parietal lobe (consistent with hemorrhage seen on CT), and moderate to large edema surrounding the foci of hemorrhage resulting in mass effect on the lateral ventricle and approximately 14 millimeter [id number] midline shift. -Admission CXR shows ETT and NGT placmement. Reads Mild babasillar atelectasis with what appears to represent small left and possibly tiny right effusion. -Consulted Neurology and Neurosurgery. -Neurosurgery says no acute indication for surgery at this time. -PT/OT SIRS Patient meets SIRS criteria with Tachycardia, leukocytosis, and fever Patient got dose of Vanc and Aztreonam in ED Admitted to ICU Started on Fluids and Insulin per ICU Patient Afebrile by 19:03 WALLER Cultures, UDS, Tylenol PRN, Cartoid US showed B/L 20-39% proximal ICA stenosis and anterograde flow in both cerebral arteries. We will follow up with Neurology and Neurosurgery recs in the morning. Will hold patients home medications until she is extubated. Patient seen and examined with Attending Everett Alva PGY1 - Date & Time Date: 08/01/17 Time: 10:00 <Roly Mays MD - Last Filed: 08/02/17 15:21> Results - Vital Signs Recent Vital Signs: Last Vital Signs Temp 99.7 F H 08/01/17 22:00 Pulse 86 08/02/17 14:00 Resp 18 08/01/17 22:00 BP 151/71 H 08/01/17 22:00 Pulse Ox 100 08/01/17 22:00 - Labs Result Diagrams: 08/02/17 04:30 08/02/17 04:30 Labs: Laboratory Results - last 24 hr 08/01/17 08/01/17 08/01/17 08:20 08:20 13:36 WBC 17.9 H RBC 3.31 L Hgb 9.8 L Hct 29.1 L MCV 87.9 MCH 29.6 MCHC 33.7 RDW 12.8 Plt Count 179 MPV 9.0 Gran % 95.8 H Lymph % (Auto) 3.1 L [place] % (Auto) 1.1 Eos % (Auto) 0.0 L Baso % (Auto) 0.0 Gran # 17.20 H Lymph # 0.6 L [place] # 0.2 Eos # 0.0 Baso # 0.00 Neutrophils % (Manual) 95 H Lymphocytes % (Manual) 4 L Monocytes % (Manual) 1 Platelet Evaluation Normal Hypochromasia Slight Anisocytosis (manual) Slight pCO2 pO2 HCO3 ABG pH ABG Total CO2 ABG O2 Saturation ABG O2 Content ABG Base Excess ABG Hemoglobin ABG Carboxyhemoglobin POC ABG HHb (Measured) ABG Methemoglobin ABG O2 Capacity VBG pH VBG pCO2 VBG HCO3 VBG Total CO2 VBG O2 Sat (Calc) VBG Base Excess VBG Potassium Hgb O2 Saturation Glucose Lactate FiO2 Sodium 136 Potassium 4.1 Chloride 97 L Carbon Dioxide 27 Anion Gap 16 BUN 18 Creatinine 0.9 Est GFR ( Amer) > 60 Est GFR (Non-Af Amer) > 60 POC Glucose (mg/dL) Random Glucose 384 H* Calcium 9.4 Phosphorus Magnesium Total Bilirubin 0.8 AST 26 ALT 46 Alkaline Phosphatase 124 Total Protein 6.9 Albumin 3.8 Globulin 3.1 Albumin/Globulin Ratio 1.2 Procalcitonin 0.16 L Venous Blood Potassium 08/01/17 08/01/17 08/01/17 13:59 16:05 18:38 WBC RBC Hgb Hct MCV MCH MCHC RDW Plt Count MPV Gran % Lymph % (Auto) [place] % (Auto) Eos % (Auto) Baso % (Auto) Gran # Lymph # [place] # Eos # Baso # Neutrophils % (Manual) Lymphocytes % (Manual) Monocytes % (Manual) Platelet Evaluation Hypochromasia Anisocytosis (manual) pCO2 pO2 HCO3 ABG pH ABG Total CO2 ABG O2 Saturation ABG O2 Content ABG Base Excess ABG Hemoglobin ABG Carboxyhemoglobin POC ABG HHb (Measured) ABG Methemoglobin ABG O2 Capacity VBG pH VBG pCO2 VBG HCO3 VBG Total CO2 VBG O2 Sat (Calc) VBG Base Excess VBG Potassium Hgb O2 Saturation Glucose Lactate FiO2 Sodium Potassium Chloride Carbon Dioxide Anion Gap BUN Creatinine Est GFR ( Amer) Est GFR (Non-Af Amer) POC Glucose (mg/dL) 268 H 165 H 121 H Random Glucose Calcium Phosphorus Magnesium Total Bilirubin AST ALT Alkaline Phosphatase Total Protein Albumin Globulin Albumin/Globulin Ratio Procalcitonin Venous Blood Potassium 08/01/17 08/01/17 08/01/17 19:56 21:21 22:35 WBC RBC Hgb Hct MCV MCH MCHC RDW Plt Count MPV Gran % Lymph % (Auto) [place] % (Auto) Eos % (Auto) Baso % (Auto) Gran # Lymph # [place] # Eos # Baso # Neutrophils % (Manual) Lymphocytes % (Manual) Monocytes % (Manual) Platelet Evaluation Hypochromasia Anisocytosis (manual) pCO2 pO2 HCO3 ABG pH ABG Total CO2 ABG O2 Saturation ABG O2 Content ABG Base Excess ABG Hemoglobin ABG Carboxyhemoglobin POC ABG HHb (Measured) ABG Methemoglobin ABG O2 Capacity VBG pH VBG pCO2 VBG HCO3 VBG Total CO2 VBG O2 Sat (Calc) VBG Base Excess VBG Potassium Hgb O2 Saturation Glucose Lactate FiO2 Sodium Potassium Chloride Carbon Dioxide Anion Gap BUN Creatinine Est GFR ( Amer) Est GFR (Non-Af Amer) POC Glucose (mg/dL) 96 136 H 160 H Random Glucose Calcium Phosphorus Magnesium Total Bilirubin AST ALT Alkaline Phosphatase Total Protein Albumin Globulin Albumin/Globulin Ratio Procalcitonin Venous Blood Potassium 08/01/17 08/01/17 08/01/17 23:04 23:04 23:16 WBC RBC Hgb Hct MCV MCH MCHC RDW Plt Count MPV Gran % Lymph % (Auto) [place] % (Auto) Eos % (Auto) Baso % (Auto) Gran # Lymph # [place] # Eos # Baso # Neutrophils % (Manual) Lymphocytes % (Manual) Monocytes % (Manual) Platelet Evaluation Hypochromasia Anisocytosis (manual) pCO2 pO2 36 HCO3 ABG pH ABG Total CO2 ABG O2 Saturation ABG O2 Content ABG Base Excess ABG Hemoglobin ABG Carboxyhemoglobin POC ABG HHb (Measured) ABG Methemoglobin ABG O2 Capacity VBG pH 7.42 VBG pCO2 50.0 VBG HCO3 32.4 H VBG Total CO2 33.9 H VBG O2 Sat (Calc) 76.3 H VBG Base Excess 6.6 H VBG Potassium 4.3 Hgb O2 Saturation Glucose 153 H Lactate 2.0 FiO2 21.0 Sodium 142.0 142 Potassium 4.1 Chloride 108.0 H 103 Carbon Dioxide 30 Anion Gap 13 BUN 21 Creatinine 0.9 Est GFR ( Amer) > 60 Est GFR (Non-Af Amer) > 60 POC Glucose (mg/dL) 166 H Random Glucose 145 H Calcium 9.4 Phosphorus Magnesium Total Bilirubin AST ALT Alkaline Phosphatase Total Protein Albumin Globulin Albumin/Globulin Ratio Procalcitonin Venous Blood Potassium 4.3 08/02/17 08/02/17 08/02/17 00:31 01:46 02:26 WBC RBC Hgb Hct MCV MCH MCHC RDW Plt Count MPV Gran % Lymph % (Auto) [place] % (Auto) Eos % (Auto) Baso % (Auto) Gran # Lymph # [place] # Eos # Baso # Neutrophils % (Manual) Lymphocytes % (Manual) Monocytes % (Manual) Platelet Evaluation Hypochromasia Anisocytosis (manual) pCO2 pO2 HCO3 ABG pH ABG Total CO2 ABG O2 Saturation ABG O2 Content ABG Base Excess ABG Hemoglobin ABG Carboxyhemoglobin POC ABG HHb (Measured) ABG Methemoglobin ABG O2 Capacity VBG pH VBG pCO2 VBG HCO3 VBG Total CO2 VBG O2 Sat (Calc) VBG Base Excess VBG Potassium Hgb O2 Saturation Glucose Lactate FiO2 Sodium Potassium Chloride Carbon Dioxide Anion Gap BUN Creatinine Est GFR ( Amer) Est GFR (Non-Af Amer) POC Glucose (mg/dL) 152 H 130 H 104 Random Glucose Calcium Phosphorus Magnesium Total Bilirubin AST ALT Alkaline Phosphatase Total Protein Albumin Globulin Albumin/Globulin Ratio Procalcitonin Venous Blood Potassium 08/02/17 08/02/17 08/02/17 02:35 03:11 04:30 WBC 18.0 H RBC 3.27 L Hgb 9.6 L Hct 29.9 L MCV 91.4 D MCH 29.4 MCHC 32.1 RDW 13.3 Plt Count 223 MPV 9.6 Gran % 93.9 H Lymph % (Auto) 4.3 L [place] % (Auto) 1.8 Eos % (Auto) 0.0 L Baso % (Auto) 0.0 Gran # 16.90 H Lymph # 0.8 L [place] # 0.3 Eos # 0.0 Baso # 0.00 Neutrophils % (Manual) Lymphocytes % (Manual) Monocytes % (Manual) Platelet Evaluation Hypochromasia Anisocytosis (manual) pCO2 pO2 31 HCO3 ABG pH ABG Total CO2 ABG O2 Saturation ABG O2 Content ABG Base Excess ABG Hemoglobin ABG Carboxyhemoglobin POC ABG HHb (Measured) ABG Methemoglobin ABG O2 Capacity VBG pH 7.38 VBG pCO2 52.0 VBG HCO3 30.8 H VBG Total CO2 32.4 H VBG O2 Sat (Calc) 62.2 VBG Base Excess 4.4 H VBG Potassium 3.6 Hgb O2 Saturation Glucose 107 H Lactate 1.8 FiO2 21.0 Sodium 145.0 Potassium Chloride 112.0 H Carbon Dioxide Anion Gap BUN Creatinine Est GFR ( Amer) Est GFR (Non-Af Amer) POC Glucose (mg/dL) 136 H Random Glucose Calcium Phosphorus Magnesium Total Bilirubin AST ALT Alkaline Phosphatase Total Protein Albumin Globulin Albumin/Globulin Ratio Procalcitonin Venous Blood Potassium 3.6 08/02/17 08/02/17 08/02/17 04:30 04:42 05:30 WBC RBC Hgb Hct MCV MCH MCHC RDW Plt Count MPV Gran % Lymph % (Auto) [place] % (Auto) Eos % (Auto) Baso % (Auto) Gran # Lymph # [place] # Eos # Baso # Neutrophils % (Manual) Lymphocytes % (Manual) Monocytes % (Manual) Platelet Evaluation Hypochromasia Anisocytosis (manual) pCO2 38 pO2 72.0 L HCO3 26.4 ABG pH 7.45 ABG Total CO2 27.6 ABG O2 Saturation 98.0 ABG O2 Content 11.9 L ABG Base Excess 2.3 ABG Hemoglobin 8.9 L ABG Carboxyhemoglobin 2.5 H POC ABG HHb (Measured) 1.9 ABG Methemoglobin 1.2 ABG O2 Capacity 12.1 L VBG pH VBG pCO2 VBG HCO3 VBG Total CO2 VBG O2 Sat (Calc) VBG Base Excess VBG Potassium Hgb O2 Saturation 94.5 L Glucose Lactate FiO2 40.0 Sodium 149 H Potassium 3.7 Chloride 107 Carbon Dioxide 30 Anion Gap 16 BUN 24 H Creatinine 1.0 Est GFR ( Amer) > 60 Est GFR (Non-Af Amer) 56 POC Glucose (mg/dL) 158 H Random Glucose 96 Calcium 9.8 Phosphorus 3.2 Magnesium 1.9 Total Bilirubin 0.6 AST 25 ALT 35 Alkaline Phosphatase 111 Total Protein 7.2 Albumin 3.7 Globulin 3.5 Albumin/Globulin Ratio 1.0 L Procalcitonin Venous Blood Potassium 08/02/17 08/02/17 08/02/17 05:47 07:49 10:01 WBC RBC Hgb Hct MCV MCH MCHC RDW Plt Count MPV Gran % Lymph % (Auto) [place] % (Auto) Eos % (Auto) Baso % (Auto) Gran # Lymph # [place] # Eos # Baso # Neutrophils % (Manual) Lymphocytes % (Manual) Monocytes % (Manual) Platelet Evaluation Hypochromasia Anisocytosis (manual) pCO2 pO2 HCO3 ABG pH ABG Total CO2 ABG O2 Saturation ABG O2 Content ABG Base Excess ABG Hemoglobin ABG Carboxyhemoglobin POC ABG HHb (Measured) ABG Methemoglobin ABG O2 Capacity VBG pH VBG pCO2 VBG HCO3 VBG Total CO2 VBG O2 Sat (Calc) VBG Base Excess VBG Potassium Hgb O2 Saturation Glucose Lactate FiO2 Sodium Potassium Chloride Carbon Dioxide Anion Gap BUN Creatinine Est GFR ( Amer) Est GFR (Non-Af Amer) POC Glucose (mg/dL) 147 H 159 H 167 H Random Glucose Calcium Phosphorus Magnesium Total Bilirubin AST ALT Alkaline Phosphatase Total Protein Albumin Globulin Albumin/Globulin Ratio Procalcitonin Venous Blood Potassium 08/02/17 08/02/17 10:57 13:00 WBC RBC Hgb Hct MCV MCH MCHC RDW Plt Count MPV Gran % Lymph % (Auto) [place] % (Auto) Eos % (Auto) Baso % (Auto) Gran # Lymph # [place] # Eos # Baso # Neutrophils % (Manual) Lymphocytes % (Manual) Monocytes % (Manual) Platelet Evaluation Hypochromasia Anisocytosis (manual) pCO2 pO2 HCO3 ABG pH ABG Total CO2 ABG O2 Saturation ABG O2 Content ABG Base Excess ABG Hemoglobin ABG Carboxyhemoglobin POC ABG HHb (Measured) ABG Methemoglobin ABG O2 Capacity VBG pH VBG pCO2 VBG HCO3 VBG Total CO2 VBG O2 Sat (Calc) VBG Base Excess VBG Potassium Hgb O2 Saturation Glucose Lactate FiO2 Sodium Potassium Chloride Carbon Dioxide Anion Gap BUN Creatinine Est GFR ( Amer) Est GFR (Non-Af Amer) POC Glucose (mg/dL) 120 H 110 Random Glucose Calcium Phosphorus Magnesium Total Bilirubin AST ALT Alkaline Phosphatase Total Protein Albumin Globulin Albumin/Globulin Ratio Procalcitonin Venous Blood Potassium Attending/Attestation - Attestation I have personally seen and examined this patient.: Yes I have fully participated in the care of the patient.: Yes I have reviewed all pertinent clinical information: Yes Notes (Text): 08/02/17 15:16 Patient was seen and examined with bio medical technician. 67 yo F with PMH of Uterine Ca (s/p chemo/rads, total hysterectomy, and b/l salpingo-oophrectomy), DM2, HTN, HLD, and disc disease, underwent surgery for right Parietal mass causing left hemipegia last week and was discharged yesterday to rehab for PT and rehabilitation, her power was improving at the time of discharge was admitted with change of mental status and was found to have hemorrhagic CVA at the site of prior surgery with significant midline shift, patient was evaluated by Neuro surgery, no plan for intervention.Patient is intubated, on hypertonic saline. steroid and Keppra.Patient case was discussed with ICU attending. Prognosis is guarded.
--- NOTE | 2017-08-01 22:48 | CARD ---
APPROVED REPORT EKG Measurement Heart [id number] DE [id number] <Conclusion> Sinus rhythm with marked sinus arrhythmia Otherwise normal ECG
--- NOTE | 2017-08-01 22:55 | CARD ---
APPROVED REPORT EKG Measurement Heart [id number] OR [id number] [id number] <Conclusion> Normal sinus rhythm Normal ECG
[2017-08-01 23:09] LABS: VENOUS BLOOD GAS BASE EXCESS 6.6 mmol/L (0.0-2.0); VENOUS BLOOD PH 7.42 (7.32-7.43)
[2017-08-01 23:21] LABS: BLOOD UREA NITROGEN 21 mg/dL (7-21); CALCIUM 9.4 mg/dL (8.4-10.5); CARBON DIOXIDE 30 mmol/L (21-33); CHLORIDE 103 mmol/L (98-107); GFR AFRICAN-AMERICAN > 60; GLUCOSE,RANDOM 145 mg/dL (70-110); POTASSIUM 4.1 mmol/L (3.6-5.0); SODIUM 142 mmol/L (132-148)
[2017-08-01 23:46] LABS: VENOUS BLOOD GAS BASE EXCESS 4.3 mmol/L (0.0-2.0); VENOUS BLOOD PH 7.43 (7.32-7.43)
[2017-08-01 23:48] LABS: ALB/GLOB RATIO 3.5 (1.1-1.8); AST/SGOT 35 U/L (14-36); BILIRUBIN,TOTAL 0.9 mg/dL (0.2-1.3); BLOOD UREA NITROGEN 19 mg/dL (7-21); CALCIUM 9.5 mg/dL (8.4-10.5); CARBON DIOXIDE 30 mmol/L (21-33); CHLORIDE 95 mmol/L (98-107); GFR AFRICAN-AMERICAN > 60; POTASSIUM 4.8 mmol/L (3.6-5.0); SODIUM 134 mmol/L (132-148); TOTAL PROTEIN 7.2 g/dL (5.8-8.3)
[2017-08-01 23:49] LABS: ALKALINE PHOSPHATASE 125 U/L (38-126); ALT/SGPT 41 U/L (7-56)
[2017-08-01 23:50] LABS: TROPONIN I 0.04 ng/mL
[2017-08-01 23:51] LABS: GLUCOSE,RANDOM 324 mg/dL (70-110); INR 0.94 (0.93-1.08); PARTIAL THROMBOPLASTIN TIME 24.9 Seconds (23.7-30.8)
[2017-08-01 23:52] LABS: HEMATOCRIT 31.2 % (36.0-48.0); MEAN CELL VOLUME 88.4 fl (80.0-105.0); MEAN CORPUSCULAR HEMOGLOBIN 29.5 pg (25.0-35.0); MEAN CORPUSCULAR HGB CONC 33.3 g/dl (31.0-37.0); WHITE BLOOD COUNT 19.5 10^3/ul (4.5-11.0)
[2017-08-01 23:53] LABS: MEAN PLATELET VOLUME 9.3 fl (7.0-11.0); RED CELL DISTRIBUTION WIDTH 13.1 % (11.5-14.5)
[2017-08-02] MEDS: Propofol 10 mg/ml 1,000 MG/100 ML VIAL IV PRN (01:02)
[2017-08-02 02:59] LABS: VENOUS BLOOD GAS BASE EXCESS 4.4 mmol/L (0.0-2.0); VENOUS BLOOD PH 7.38 (7.32-7.43)
[2017-08-02] MEDS: Insulin Regular 100 UNITS in Sodium Chloride 0.9% 99 ML IV PRN (05:04)
[2017-08-02] MEDS: Sodium Chloride 3% 500 ML IV SCH ×2 (05:12→16:14)
[2017-08-02 05:29] LABS: GRAN # 16.9 (1.4-6.5); GRAN % 93.9 % (50.0-68.0); HEMATOCRIT 29.9 % (36.0-48.0); LYMPH # 0.8 (1.2-3.4); LYMPH % 4.3 % (22.0-35.0); MEAN CELL VOLUME 91.4 fl (80.0-105.0); MEAN CORPUSCULAR HEMOGLOBIN 29.4 pg (25.0-35.0); MEAN CORPUSCULAR HGB CONC 32.1 g/dl (31.0-37.0); MEAN PLATELET VOLUME 9.6 fl (7.0-11.0); MONO # 0.3 (0.1-0.6); MONO % 1.8 % (1.0-6.0); RED CELL DISTRIBUTION WIDTH 13.3 % (11.5-14.5)
[2017-08-02 06:02] LABS: ALKALINE PHOSPHATASE 111 U/L (38-126); ALT/SGPT 35 U/L (7-56); AST/SGOT 25 U/L (14-36); BILIRUBIN,TOTAL 0.6 mg/dL (0.2-1.3); BLOOD UREA NITROGEN 24 mg/dL (7-21); CALCIUM 9.8 mg/dL (8.4-10.5); CARBON DIOXIDE 30 mmol/L (21-33); CHLORIDE 107 mmol/L (95-110); GFR AFRICAN-AMERICAN > 60; GLUCOSE,RANDOM 96 mg/dL (70-110); MAGNESIUM 1.9 mg/dL (1.7-2.2); PHOSPHOROUS 3.2 mg/dL (2.5-4.5); POTASSIUM 3.7 mmol/L (3.6-5.0); SODIUM 149 mmol/L (132-148); TOTAL PROTEIN 7.2 g/dL (5.8-8.3)
[2017-08-02 06:03] LABS: ARTERIAL BLOOD GAS HCO3 26.4 mmol/L (21-28); ARTERIAL BLOOD GAS O2 CAPACITY 12.1 mL/dl (16-24); ARTERIAL BLOOD GAS O2 CONTENT 11.9 ML/dl (15-23); ARTERIAL BLOOD GAS PH 7.45 (7.35-7.45); ARTERIAL BLOOD HGB O2 SAT 94.5 % (95.0-98.0); CARBOXYHEMOGLOBIN 2.5 % (0.5-1.5); HHB 1.9 % (0-5); METHEMOGLOBIN 1.2 % (0.0-3.0)
--- NOTE | 2017-08-02 07:42 | RAD ---
HISTORY: [facility] vent COMPARISON: Portable chest 08/01/2017. FINDINGS: Endotracheal and nasogastric tubes in not appear significantly changed in position. Left chest port unchanged as well. LUNGS: Stable limited left basilar atelectasis or infiltrate remains with none identified at the right once. PLEURA: Trace of pleural effusion is not excluded. None is seen at the right. No pneumothorax bilaterally. CARDIOVASCULAR: Cardiac silhouette remains prominent appearing. No pulmonary vascular derangement identified nevertheless. OSSEOUS STRUCTURES: No significant abnormalities. VISUALIZED UPPER ABDOMEN: Normal. OTHER FINDINGS: None. IMPRESSION: Stable limited left basilar atelectasis or infiltrate with none seen the right. A small left pleural effusion is not excluded.
--- NOTE | 2017-08-02 08:30 | CON ---
HISTORY OF PRESENT ILLNESS: Unfortunately, the patient is known to have secondary tumor biopsy and drainage of a large cystic lesion approximately a week ago. She was discharged to rehabilitation. Apparently, in rehab was noted be very lethargic, confused with a left hemiparesis. She was sent to local ER at [facility] where she was found to have a hemorrhagic lesion in the right hemisphere, was then transferred to [facility]. She was in the course of this intubated, which she is now on; further complaints or history not elicited otherwise at this time. Of significance is that she has known metastatic urinary carcinoma, her biopsy did in fact return, pathology consistent with that, i.e., poorly-differentiated carcinoma. PHYSICAL EXAMINATION: At this time, she opens her eyes to vigorous chest rub. Pupils are briskly reactive. Face is symmetric. She is vigorously moving her right side, minimal drop left arm and leg. 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 It does to seem to respect the territory of the anterior cerebral infarct. There is old air-filled , there is some minimal midline shift. IMPRESSION AND PLAN: Unfortunately, I do not believe that much can be done to help this patient as she has a dire situation to begin with which is now obviously worse. On the other hand, she may now really require an intubation at this stage; perhaps, in 24- to 48-hour, consideration could be given to possible wean and extubation. Tyler Lombardi MD
[2017-08-02] MEDS: levETIRAcetam 500mg IVPB 500 MG/100 ML BAG IVPB SCH ×2 (09:36→21:33)
--- NOTE | 2017-08-02 10:59 | CP.PCM.PN ---
Subjective - Date & Time of Evaluation Date of Evaluation: 08/02/17 Time of Evaluation: 10:57 - Subjective Subjective: Pt eval again today bilat F&D minimal corneals Pos resp nonspecific moption with arms r>l Given neuro condition and diagnosis of agressive metastatic disease no intervention is indicated recommed cont supportive care only Objective - Vital Signs/Intake and Output Vital Signs (last 24 hours): Temp Pulse Resp BP Pulse Ox 99.7 F H 80 18 151/71 H 100 08/01/17 22:00 08/02/17 06:00 08/01/17 22:00 08/01/17 22:00 08/01/17 22:00 Intake and Output: 08/02/17 08/02/17 06:59 18:59 Intake Total 1916 14.9 Output Total 1950 Balance -34 14.9 - Medications Medications: Current Medications Dexamethasone (Decadron Inj) 10 mg IVP Q6 [facility] Last Admin: 08/02/17 05:04 Dose: 10 mg Acetaminophen (Ofirmev) 1,000 mg in 100 mls @ 400 mls/hr IVPB Q6H PRN PRN Reason: T>99.8 Stop: 08/03/17 08:06 Levetiracetam (Keppra 500mg Ivpb) 500 mg in 100 mls @ 460 mls/hr IVPB Q12 [facility] Last Admin: 08/02/17 09:36 Dose: 460 mls/hr Insulin Human Regular 100 (units/ Sodium Chloride) 100 mls @ 5 mls/hr IV .Q20H PRN; Protocol; 5 UNITS/HR PRN Reason: TITRATE PER MD ORDER Last Titration: 08/02/17 08:24 Dose: 7 units/hr, 7 mls/hr Propofol (Diprivan) 1,000 mg in 100 mls @ 3.239 mls/hr IV .Q24H PRN; Protocol; 5 MCG/KG/MIN PRN Reason: Agitation Last Titration: 08/02/17 02:32 Dose: 1.5 mcg/kg/min, 0.972 mls/hr Sodium Chloride (Hypertonic Saline 3%) 500 mls @ 50 mls/hr IV .Q10H [facility] Last Admin: 08/02/17 05:12 Dose: 50 mls/hr Insulin Human Regular (Humulin R Med) 0 units SC Q4H [facility] PRN Reason: Protocol Last Admin: 08/01/17 09:33 Dose: 8 units Nystatin/Triamcinolone Acetonide (Nystatin/Triamcinolone Cream) 1 ea TOP BID PRN PRN Reason: Excoriation Pantoprazole Sodium (Protonix Inj) 40 mg IVP DAILY [facility] Last Admin: 08/02/17 09:36 Dose: 40 mg - Labs Labs: 08/02/17 04:30 08/02/17 04:30 PT 10.5 Seconds (9.9-11.8) 08/01/17 08:20 INR 0.97 (0.93-1.08) 08/01/17 08:20 APTT 27.3 Seconds (23.7-30.8) 08/01/17 08:20
--- NOTE | 2017-08-02 13:08 | CP.CCUPN ---
<NGUYEN CARREON - Last Filed: 08/02/17 13:05> CCU Subjective - Physician Review Subjective (Free Text): 08/02/17 13:05 Patient seen and assessed at bedside. Patient currently intubated and on sedation. No acute events overnight per nursing and chart review. ROS unobtainable due to patients clinical condition. CCU Objective - Vital Signs / Intake & Output Intake and Output (Last 8hrs): Intake & Output 08/01/17 08/02/17 08/02/17 22:59 06:59 14:59 Intake Total 1103.0 855 14.9 Output Total 1200 750 Balance -97.0 105 14.9 Intake: IV 1103.0 855 14.9 Left Antecubital 950 600 Left Subclavian 36 38 Output: Urine 1200 750 2-way Urethral 1200 750 - Physical Exam Head: Positive for: Other (sahara to R hemicranium with subcutaneous edema) Pupils: Positive for: PERRL Conjunctiva: Positive for: Normal Mouth: Positive for: Moist Mucous Membranes, Other (ET tube stable in place in oropharynx) Neck: Positive for: Normal Range of Motion, Trachea Midline. Negative for: JVD Respiratory/Chest: Positive for: Clear to Auscultation, Good Air Exchange. Negative for: Respiratory Distress, Accessory Muscle Use Cardiovascular: Positive for: Regular Rate and Rhythm, Normal S1, S2, Other ( left chest wall port stable with dressing clean dry and intact). Negative for: Murmurs Abdomen: Positive for: Normal Bowel Sounds. Negative for: Tenderness, Distention, Peritoneal Signs Upper Extremity: Positive for: NORMAL PULSES, Capillary Refill < 2s. Negative for: Cyanosis, Edema Lower Extremity: Positive for: NORMAL PULSES, Capillary Refill < 2 s. Negative for: Edema Neurological: Negative for: GCS=15, CN II-XII Intact, Speech Normal Skin: Positive for: Warm, Dry, Normal Color. Negative for: Rashes Psychiatric: Negative for: Alert, Oriented x 3 - Medications Active Medications: Active Medications Generic Name Dose Route Start Last Admin Trade Name Freq PRN Reason Stop Dose Admin Dexamethasone 10 mg 08/01/17 22:01 08/02/17 05:04 Decadron Inj IVP 10 mg Q6 VANIA Administration Acetaminophen 1,000 mg in 100 mls @ 400 mls/hr 08/01/17 08:05 Ofirmev IVPB 08/03/17 08:06 Q6H PRN T>99.8 Levetiracetam 500 mg in 100 mls @ 460 mls/hr 08/01/17 10:00 08/02/17 09:36 Keppra 500mg Ivpb IVPB 460 mls/hr Q12 VANIA Administration Insulin Human Regular 100 100 mls @ 5 mls/hr 08/01/17 09:44 08/02/17 08:24 units/ Sodium Chloride IV 7 units/hr .Q20H PRN 7 mls/hr TITRATE PER MD ORDER Titration Protocol 5 UNITS/HR Propofol 1,000 mg in 100 mls @ 3.239 mls/hr 08/01/17 09:50 08/02/17 02:32 Diprivan IV 1.5 mcg/kg/min .Q24H PRN 0.972 mls/hr Agitation Titration Protocol 5 MCG/KG/MIN Sodium Chloride 500 mls @ 50 mls/hr 08/01/17 18:45 08/02/17 05:12 Hypertonic Saline 3% IV 50 mls/hr .Q10H VANIA Administration Vancomycin HCl 1 gm in 250 mls @ 167 mls/hr 08/02/17 12:15 Vancomycin 1gm IVPB Q12H VANIA Protocol Insulin Human Regular 0 units 08/01/17 08:00 08/01/17 09:33 Humulin R Med SC 8 units Q4H VANIA Administration Protocol Nystatin/Triamcinolone Acetonide 1 ea 08/01/17 20:55 Nystatin/Triamcinolone Cream TOP BID PRN Excoriation Pantoprazole Sodium 40 mg 08/01/17 10:00 08/02/17 09:36 Protonix Inj IVP 40 mg DAILY VANIA Administration - Patient Studies Lab Studies: Microbiology Studies 08/01/17 07:30 Blood Culture - Preliminary Blood-Venous Gram Positive Cocci Gram Stain - Final 08/01/17 08:07 Blood Culture - Preliminary Blood-Venous Gram Positive Cocci Gram Stain - Final Lab Studies 08/02/17 08/02/17 08/02/17 Range/Units 13:00 10:57 10:01 WBC (4.5-11.0) 10^3/ul RBC (3.5-6.1) 10^6/uL Hgb (12.0-16.0) g/dL Hct (36.0-48.0) % MCV (80.0-105.0) fl MCH (25.0-35.0) pg MCHC (31.0-37.0) g/dl RDW (11.5-14.5) % Plt Count (120.0-450.0) 10^3/uL MPV (7.0-11.0) fl Gran % (50.0-68.0) % Lymph % (Auto) (22.0-35.0) % [place] % (Auto) (1.0-6.0) % Eos % (Auto) (1.5-5.0) % Baso % (Auto) (0.0-3.0) % Gran # (1.4-6.5) Lymph # (1.2-3.4) [place] # (0.1-0.6) Eos # (0.0-0.7) Baso # (0.0-2.0) K/mm3 Neutrophils % (Manual) (50.0-70.0) % Lymphocytes % (Manual) (22.0-35.0) % Monocytes % (Manual) (1.0-6.0) % Platelet Evaluation (NORMAL) Hypochromasia Anisocytosis (manual) pCO2 (35-45) mm/Hg pO2 (30-55) mm/Hg HCO3 (21-28) mmol/L ABG pH (7.35-7.45) ABG Total CO2 (22-28) mmol.L ABG O2 Saturation (95-98) % ABG O2 Content (15-23) ML/dl ABG Base Excess (-2.0-3.0) mmol/L ABG Hemoglobin (11.7-17.4) g/dL ABG Carboxyhemoglobin (0.5-1.5) % POC ABG HHb (Measured) (0-5) % ABG Methemoglobin (0.0-3.0) % ABG O2 Capacity (16-24) mL/dl VBG pH (7.32-7.43) VBG pCO2 (40-60) VBG HCO3 (21-28) mmol/l VBG Total CO2 (22-28) mmol.L VBG O2 Sat (Calc) (40-65) % VBG Base Excess (0.0-2.0) mmol/L VBG Potassium (3.6-5.2) mmol/L Hgb O2 Saturation (95.0-98.0) % Glucose (65-105) mg/dl Lactate (0.7-2.1) mmol/L FiO2 % Sodium (132-148) mmol/L Potassium (3.6-5.0) mmol/L Chloride (98-107) mmol/L Carbon Dioxide (21-33) mmol/L Anion Gap (10-20) BUN (7-21) mg/dL Creatinine (0.5-1.4) mg/dL Est GFR ( Amer) Est GFR (Non-Af Amer) POC Glucose (mg/dL) 110 120 H 167 H (65-110) mg/dL Random Glucose (70-110) mg/dL Calcium (8.4-10.5) mg/dL Phosphorus (2.5-4.5) mg/dL Magnesium (1.7-2.2) mg/dL Total Bilirubin (0.2-1.3) mg/dL AST (14-36) U/L ALT (7-56) U/L Alkaline Phosphatase (38-126) U/L Total Protein (5.8-8.3) g/dL Albumin (3.0-4.8) g/dL Globulin gm/dL Albumin/Globulin Ratio (1.1-1.8) Procalcitonin (0.19-0.49) NG/ML Venous Blood Potassium (3.6-5.2) mmol/L 08/02/17 08/02/17 08/02/17 Range/Units 07:49 05:47 05:30 WBC (4.5-11.0) 10^3/ul RBC (3.5-6.1) 10^6/uL Hgb (12.0-16.0) g/dL Hct (36.0-48.0) % MCV (80.0-105.0) fl MCH (25.0-35.0) pg MCHC (31.0-37.0) g/dl RDW (11.5-14.5) % Plt Count (120.0-450.0) 10^3/uL MPV (7.0-11.0) fl Gran % (50.0-68.0) % Lymph % (Auto) (22.0-35.0) % [place] % (Auto) (1.0-6.0) % Eos % (Auto) (1.5-5.0) % Baso % (Auto) (0.0-3.0) % Gran # (1.4-6.5) Lymph # (1.2-3.4) [place] # (0.1-0.6) Eos # (0.0-0.7) Baso # (0.0-2.0) K/mm3 Neutrophils % (Manual) (50.0-70.0) % Lymphocytes % (Manual) (22.0-35.0) % Monocytes % (Manual) (1.0-6.0) % Platelet Evaluation (NORMAL) Hypochromasia Anisocytosis (manual) pCO2 38 (35-45) mm/Hg pO2 72.0 L (30-55) mm/Hg HCO3 26.4 (21-28) mmol/L ABG pH 7.45 (7.35-7.45) ABG Total CO2 27.6 (22-28) mmol.L ABG O2 Saturation 98.0 (95-98) % ABG O2 Content 11.9 L (15-23) ML/dl ABG Base Excess 2.3 (-2.0-3.0) mmol/L ABG Hemoglobin 8.9 L (11.7-17.4) g/dL ABG Carboxyhemoglobin 2.5 H (0.5-1.5) % POC ABG HHb (Measured) 1.9 (0-5) % ABG Methemoglobin 1.2 (0.0-3.0) % ABG O2 Capacity 12.1 L (16-24) mL/dl VBG pH (7.32-7.43) VBG pCO2 (40-60) VBG HCO3 (21-28) mmol/l VBG Total CO2 (22-28) mmol.L VBG O2 Sat (Calc) (40-65) % VBG Base Excess (0.0-2.0) mmol/L VBG Potassium (3.6-5.2) mmol/L Hgb O2 Saturation 94.5 L (95.0-98.0) % Glucose (65-105) mg/dl Lactate (0.7-2.1) mmol/L FiO2 40.0 % Sodium (132-148) mmol/L Potassium (3.6-5.0) mmol/L Chloride (98-107) mmol/L Carbon Dioxide (21-33) mmol/L Anion Gap (10-20) BUN (7-21) mg/dL Creatinine (0.5-1.4) mg/dL Est GFR ( Amer) Est GFR (Non-Af Amer) POC Glucose (mg/dL) 159 H 147 H (65-110) mg/dL Random Glucose (70-110) mg/dL Calcium (8.4-10.5) mg/dL Phosphorus (2.5-4.5) mg/dL Magnesium (1.7-2.2) mg/dL Total Bilirubin (0.2-1.3) mg/dL AST (14-36) U/L ALT (7-56) U/L Alkaline Phosphatase (38-126) U/L Total Protein (5.8-8.3) g/dL Albumin (3.0-4.8) g/dL Globulin gm/dL Albumin/Globulin Ratio (1.1-1.8) Procalcitonin (0.19-0.49) NG/ML Venous Blood Potassium (3.6-5.2) mmol/L 08/02/17 08/02/17 08/02/17 Range/Units 04:42 04:30 04:30 WBC 18.0 H (4.5-11.0) 10^3/ul RBC 3.27 L (3.5-6.1) 10^6/uL Hgb 9.6 L (12.0-16.0) g/dL Hct 29.9 L (36.0-48.0) % MCV 91.4 D (80.0-105.0) fl MCH 29.4 (25.0-35.0) pg MCHC 32.1 (31.0-37.0) g/dl RDW 13.3 (11.5-14.5) % Plt Count 223 (120.0-450.0) 10^3/uL MPV 9.6 (7.0-11.0) fl Gran % 93.9 H (50.0-68.0) % Lymph % (Auto) 4.3 L (22.0-35.0) % [place] % (Auto) 1.8 (1.0-6.0) % Eos % (Auto) 0.0 L (1.5-5.0) % Baso % (Auto) 0.0 (0.0-3.0) % Gran # 16.90 H (1.4-6.5) Lymph # 0.8 L (1.2-3.4) [place] # 0.3 (0.1-0.6) Eos # 0.0 (0.0-0.7) Baso # 0.00 (0.0-2.0) K/mm3 Neutrophils % (Manual) (50.0-70.0) % Lymphocytes % (Manual) (22.0-35.0) % Monocytes % (Manual) (1.0-6.0) % Platelet Evaluation (NORMAL) Hypochromasia Anisocytosis (manual) pCO2 (35-45) mm/Hg pO2 (30-55) mm/Hg HCO3 (21-28) mmol/L ABG pH (7.35-7.45) ABG Total CO2 (22-28) mmol.L ABG O2 Saturation (95-98) % ABG O2 Content (15-23) ML/dl ABG Base Excess (-2.0-3.0) mmol/L ABG Hemoglobin (11.7-17.4) g/dL ABG Carboxyhemoglobin (0.5-1.5) % POC ABG HHb (Measured) (0-5) % ABG Methemoglobin (0.0-3.0) % ABG O2 Capacity (16-24) mL/dl VBG pH (7.32-7.43) VBG pCO2 (40-60) VBG HCO3 (21-28) mmol/l VBG Total CO2 (22-28) mmol.L VBG O2 Sat (Calc) (40-65) % VBG Base Excess (0.0-2.0) mmol/L VBG Potassium (3.6-5.2) mmol/L Hgb O2 Saturation (95.0-98.0) % Glucose (65-105) mg/dl Lactate (0.7-2.1) mmol/L FiO2 % Sodium 149 H (132-148) mmol/L Potassium 3.7 (3.6-5.0) mmol/L Chloride 107 (98-107) mmol/L Carbon Dioxide 30 (21-33) mmol/L Anion Gap 16 (10-20) BUN 24 H (7-21) mg/dL Creatinine 1.0 (0.5-1.4) mg/dL Est GFR ( Amer) > 60 Est GFR (Non-Af Amer) 56 POC Glucose (mg/dL) 158 H (65-110) mg/dL Random Glucose 96 (70-110) mg/dL Calcium 9.8 (8.4-10.5) mg/dL Phosphorus 3.2 (2.5-4.5) mg/dL Magnesium 1.9 (1.7-2.2) mg/dL Total Bilirubin 0.6 (0.2-1.3) mg/dL AST 25 (14-36) U/L ALT 35 (7-56) U/L Alkaline Phosphatase 111 (38-126) U/L Total Protein 7.2 (5.8-8.3) g/dL Albumin 3.7 (3.0-4.8) g/dL Globulin 3.5 gm/dL Albumin/Globulin Ratio 1.0 L (1.1-1.8) Procalcitonin (0.19-0.49) NG/ML Venous Blood Potassium (3.6-5.2) mmol/L 08/02/17 08/02/17 08/02/17 Range/Units 03:11 02:35 02:26 WBC (4.5-11.0) 10^3/ul RBC (3.5-6.1) 10^6/uL Hgb (12.0-16.0) g/dL Hct (36.0-48.0) % MCV (80.0-105.0) fl MCH (25.0-35.0) pg MCHC (31.0-37.0) g/dl RDW (11.5-14.5) % Plt Count (120.0-450.0) 10^3/uL MPV (7.0-11.0) fl Gran % (50.0-68.0) % Lymph % (Auto) (22.0-35.0) % [place] % (Auto) (1.0-6.0) % Eos % (Auto) (1.5-5.0) % Baso % (Auto) (0.0-3.0) % Gran # (1.4-6.5) Lymph # (1.2-3.4) [place] # (0.1-0.6) Eos # (0.0-0.7) Baso # (0.0-2.0) K/mm3 Neutrophils % (Manual) (50.0-70.0) % Lymphocytes % (Manual) (22.0-35.0) % Monocytes % (Manual) (1.0-6.0) % Platelet Evaluation (NORMAL) Hypochromasia Anisocytosis (manual) pCO2 (35-45) mm/Hg pO2 31 (30-55) mm/Hg HCO3 (21-28) mmol/L ABG pH (7.35-7.45) ABG Total CO2 (22-28) mmol.L ABG O2 Saturation (95-98) % ABG O2 Content (15-23) ML/dl ABG Base Excess (-2.0-3.0) mmol/L ABG Hemoglobin (11.7-17.4) g/dL ABG Carboxyhemoglobin (0.5-1.5) % POC ABG HHb (Measured) (0-5) % ABG Methemoglobin (0.0-3.0) % ABG O2 Capacity (16-24) mL/dl VBG pH 7.38 (7.32-7.43) VBG pCO2 52.0 (40-60) VBG HCO3 30.8 H (21-28) mmol/l VBG Total CO2 32.4 H (22-28) mmol.L VBG O2 Sat (Calc) 62.2 (40-65) % VBG Base Excess 4.4 H (0.0-2.0) mmol/L VBG Potassium 3.6 (3.6-5.2) mmol/L Hgb O2 Saturation (95.0-98.0) % Glucose 107 H (65-105) mg/dl Lactate 1.8 (0.7-2.1) mmol/L FiO2 21.0 % Sodium 145.0 (132-148) mmol/L Potassium (3.6-5.0) mmol/L Chloride 112.0 H (98-107) mmol/L Carbon Dioxide (21-33) mmol/L Anion Gap (10-20) BUN (7-21) mg/dL Creatinine (0.5-1.4) mg/dL Est GFR ( Amer) Est GFR (Non-Af Amer) POC Glucose (mg/dL) 136 H 104 (65-110) mg/dL Random Glucose (70-110) mg/dL Calcium (8.4-10.5) mg/dL Phosphorus (2.5-4.5) mg/dL Magnesium (1.7-2.2) mg/dL Total Bilirubin (0.2-1.3) mg/dL AST (14-36) U/L ALT (7-56) U/L Alkaline Phosphatase (38-126) U/L Total Protein (5.8-8.3) g/dL Albumin (3.0-4.8) g/dL Globulin gm/dL Albumin/Globulin Ratio (1.1-1.8) Procalcitonin (0.19-0.49) NG/ML Venous Blood Potassium 3.6 (3.6-5.2) mmol/L 08/02/17 08/02/17 08/01/17 Range/Units 01:46 00:31 23:16 WBC (4.5-11.0) 10^3/ul RBC (3.5-6.1) 10^6/uL Hgb (12.0-16.0) g/dL Hct (36.0-48.0) % MCV (80.0-105.0) fl MCH (25.0-35.0) pg MCHC (31.0-37.0) g/dl RDW (11.5-14.5) % Plt Count (120.0-450.0) 10^3/uL MPV (7.0-11.0) fl Gran % (50.0-68.0) % Lymph % (Auto) (22.0-35.0) % [place] % (Auto) (1.0-6.0) % Eos % (Auto) (1.5-5.0) % Baso % (Auto) (0.0-3.0) % Gran # (1.4-6.5) Lymph # (1.2-3.4) [place] # (0.1-0.6) Eos # (0.0-0.7) Baso # (0.0-2.0) K/mm3 Neutrophils % (Manual) (50.0-70.0) % Lymphocytes % (Manual) (22.0-35.0) % Monocytes % (Manual) (1.0-6.0) % Platelet Evaluation (NORMAL) Hypochromasia Anisocytosis (manual) pCO2 (35-45) mm/Hg pO2 (30-55) mm/Hg HCO3 (21-28) mmol/L ABG pH (7.35-7.45) ABG Total CO2 (22-28) mmol.L ABG O2 Saturation (95-98) % ABG O2 Content (15-23) ML/dl ABG Base Excess (-2.0-3.0) mmol/L ABG Hemoglobin (11.7-17.4) g/dL ABG Carboxyhemoglobin (0.5-1.5) % POC ABG HHb (Measured) (0-5) % ABG Methemoglobin (0.0-3.0) % ABG O2 Capacity (16-24) mL/dl VBG pH (7.32-7.43) VBG pCO2 (40-60) VBG HCO3 (21-28) mmol/l VBG Total CO2 (22-28) mmol.L VBG O2 Sat (Calc) (40-65) % VBG Base Excess (0.0-2.0) mmol/L VBG Potassium (3.6-5.2) mmol/L Hgb O2 Saturation (95.0-98.0) % Glucose (65-105) mg/dl Lactate (0.7-2.1) mmol/L FiO2 % Sodium (132-148) mmol/L Potassium (3.6-5.0) mmol/L Chloride (98-107) mmol/L Carbon Dioxide (21-33) mmol/L Anion Gap (10-20) BUN (7-21) mg/dL Creatinine (0.5-1.4) mg/dL Est GFR ( Amer) Est GFR (Non-Af Amer) POC Glucose (mg/dL) 130 H 152 H 166 H (65-110) mg/dL Random Glucose (70-110) mg/dL Calcium (8.4-10.5) mg/dL Phosphorus (2.5-4.5) mg/dL Magnesium (1.7-2.2) mg/dL Total Bilirubin (0.2-1.3) mg/dL AST (14-36) U/L ALT (7-56) U/L Alkaline Phosphatase (38-126) U/L Total Protein (5.8-8.3) g/dL Albumin (3.0-4.8) g/dL Globulin gm/dL Albumin/Globulin Ratio (1.1-1.8) Procalcitonin (0.19-0.49) NG/ML Venous Blood Potassium (3.6-5.2) mmol/L 08/01/17 08/01/17 08/01/17 Range/Units 23:04 23:04 22:35 WBC (4.5-11.0) 10^3/ul RBC (3.5-6.1) 10^6/uL Hgb (12.0-16.0) g/dL Hct (36.0-48.0) % MCV (80.0-105.0) fl MCH (25.0-35.0) pg MCHC (31.0-37.0) g/dl RDW (11.5-14.5) % Plt Count (120.0-450.0) 10^3/uL MPV (7.0-11.0) fl Gran % (50.0-68.0) % Lymph % (Auto) (22.0-35.0) % [place] % (Auto) (1.0-6.0) % Eos % (Auto) (1.5-5.0) % Baso % (Auto) (0.0-3.0) % Gran # (1.4-6.5) Lymph # (1.2-3.4) [place] # (0.1-0.6) Eos # (0.0-0.7) Baso # (0.0-2.0) K/mm3 Neutrophils % (Manual) (50.0-70.0) % Lymphocytes % (Manual) (22.0-35.0) % Monocytes % (Manual) (1.0-6.0) % Platelet Evaluation (NORMAL) Hypochromasia Anisocytosis (manual) pCO2 (35-45) mm/Hg pO2 36 (30-55) mm/Hg HCO3 (21-28) mmol/L ABG pH (7.35-7.45) ABG Total CO2 (22-28) mmol.L ABG O2 Saturation (95-98) % ABG O2 Content (15-23) ML/dl ABG Base Excess (-2.0-3.0) mmol/L ABG Hemoglobin (11.7-17.4) g/dL ABG Carboxyhemoglobin (0.5-1.5) % POC ABG HHb (Measured) (0-5) % ABG Methemoglobin (0.0-3.0) % ABG O2 Capacity (16-24) mL/dl VBG pH 7.42 (7.32-7.43) VBG pCO2 50.0 (40-60) VBG HCO3 32.4 H (21-28) mmol/l VBG Total CO2 33.9 H (22-28) mmol.L VBG O2 Sat (Calc) 76.3 H (40-65) % VBG Base Excess 6.6 H (0.0-2.0) mmol/L VBG Potassium 4.3 (3.6-5.2) mmol/L Hgb O2 Saturation (95.0-98.0) % Glucose 153 H (65-105) mg/dl Lactate 2.0 (0.7-2.1) mmol/L FiO2 21.0 % Sodium 142 142.0 (132-148) mmol/L Potassium 4.1 (3.6-5.0) mmol/L Chloride 103 108.0 H (98-107) mmol/L Carbon Dioxide 30 (21-33) mmol/L Anion Gap 13 (10-20) BUN 21 (7-21) mg/dL Creatinine 0.9 (0.5-1.4) mg/dL Est GFR ( Amer) > 60 Est GFR (Non-Af Amer) > 60 POC Glucose (mg/dL) 160 H (65-110) mg/dL Random Glucose 145 H (70-110) mg/dL Calcium 9.4 (8.4-10.5) mg/dL Phosphorus (2.5-4.5) mg/dL Magnesium (1.7-2.2) mg/dL Total Bilirubin (0.2-1.3) mg/dL AST (14-36) U/L ALT (7-56) U/L Alkaline Phosphatase (38-126) U/L Total Protein (5.8-8.3) g/dL Albumin (3.0-4.8) g/dL Globulin gm/dL Albumin/Globulin Ratio (1.1-1.8) Procalcitonin (0.19-0.49) NG/ML Venous Blood Potassium 4.3 (3.6-5.2) mmol/L 08/01/17 08/01/17 08/01/17 Range/Units 21:21 19:56 18:38 WBC (4.5-11.0) 10^3/ul RBC (3.5-6.1) 10^6/uL Hgb (12.0-16.0) g/dL Hct (36.0-48.0) % MCV (80.0-105.0) fl MCH (25.0-35.0) pg MCHC (31.0-37.0) g/dl RDW (11.5-14.5) % Plt Count (120.0-450.0) 10^3/uL MPV (7.0-11.0) fl Gran % (50.0-68.0) % Lymph % (Auto) (22.0-35.0) % [place] % (Auto) (1.0-6.0) % Eos % (Auto) (1.5-5.0) % Baso % (Auto) (0.0-3.0) % Gran # (1.4-6.5) Lymph # (1.2-3.4) [place] # (0.1-0.6) Eos # (0.0-0.7) Baso # (0.0-2.0) K/mm3 Neutrophils % (Manual) (50.0-70.0) % Lymphocytes % (Manual) (22.0-35.0) % Monocytes % (Manual) (1.0-6.0) % Platelet Evaluation (NORMAL) Hypochromasia Anisocytosis (manual) pCO2 (35-45) mm/Hg pO2 (30-55) mm/Hg HCO3 (21-28) mmol/L ABG pH (7.35-7.45) ABG Total CO2 (22-28) mmol.L ABG O2 Saturation (95-98) % ABG O2 Content (15-23) ML/dl ABG Base Excess (-2.0-3.0) mmol/L ABG Hemoglobin (11.7-17.4) g/dL ABG Carboxyhemoglobin (0.5-1.5) % POC ABG HHb (Measured) (0-5) % ABG Methemoglobin (0.0-3.0) % ABG O2 Capacity (16-24) mL/dl VBG pH (7.32-7.43) VBG pCO2 (40-60) VBG HCO3 (21-28) mmol/l VBG Total CO2 (22-28) mmol.L VBG O2 Sat (Calc) (40-65) % VBG Base Excess (0.0-2.0) mmol/L VBG Potassium (3.6-5.2) mmol/L Hgb O2 Saturation (95.0-98.0) % Glucose (65-105) mg/dl Lactate (0.7-2.1) mmol/L FiO2 % Sodium (132-148) mmol/L Potassium (3.6-5.0) mmol/L Chloride (98-107) mmol/L Carbon Dioxide (21-33) mmol/L Anion Gap (10-20) BUN (7-21) mg/dL Creatinine (0.5-1.4) mg/dL Est GFR ( Amer) Est GFR (Non-Af Amer) POC Glucose (mg/dL) 136 H 96 121 H (65-110) mg/dL Random Glucose (70-110) mg/dL Calcium (8.4-10.5) mg/dL Phosphorus (2.5-4.5) mg/dL Magnesium (1.7-2.2) mg/dL Total Bilirubin (0.2-1.3) mg/dL AST (14-36) U/L ALT (7-56) U/L Alkaline Phosphatase (38-126) U/L Total Protein (5.8-8.3) g/dL Albumin (3.0-4.8) g/dL Globulin gm/dL Albumin/Globulin Ratio (1.1-1.8) Procalcitonin (0.19-0.49) NG/ML Venous Blood Potassium (3.6-5.2) mmol/L 08/01/17 08/01/17 08/01/17 Range/Units 16:05 15:01 14:00 WBC (4.5-11.0) 10^3/ul RBC (3.5-6.1) 10^6/uL Hgb (12.0-16.0) g/dL Hct (36.0-48.0) % MCV (80.0-105.0) fl MCH (25.0-35.0) pg MCHC (31.0-37.0) g/dl RDW (11.5-14.5) % Plt Count (120.0-450.0) 10^3/uL MPV (7.0-11.0) fl Gran % (50.0-68.0) % Lymph % (Auto) (22.0-35.0) % [place] % (Auto) (1.0-6.0) % Eos % (Auto) (1.5-5.0) % Baso % (Auto) (0.0-3.0) % Gran # (1.4-6.5) Lymph # (1.2-3.4) [place] # (0.1-0.6) Eos # (0.0-0.7) Baso # (0.0-2.0) K/mm3 Neutrophils % (Manual) (50.0-70.0) % Lymphocytes % (Manual) (22.0-35.0) % Monocytes % (Manual) (1.0-6.0) % Platelet Evaluation (NORMAL) Hypochromasia Anisocytosis (manual) pCO2 (35-45) mm/Hg pO2 (30-55) mm/Hg HCO3 (21-28) mmol/L ABG pH (7.35-7.45) ABG Total CO2 (22-28) mmol.L ABG O2 Saturation (95-98) % ABG O2 Content (15-23) ML/dl ABG Base Excess (-2.0-3.0) mmol/L ABG Hemoglobin (11.7-17.4) g/dL ABG Carboxyhemoglobin (0.5-1.5) % POC ABG HHb (Measured) (0-5) % ABG Methemoglobin (0.0-3.0) % ABG O2 Capacity (16-24) mL/dl VBG pH (7.32-7.43) VBG pCO2 (40-60) VBG HCO3 (21-28) mmol/l VBG Total CO2 (22-28) mmol.L VBG O2 Sat (Calc) (40-65) % VBG Base Excess (0.0-2.0) mmol/L VBG Potassium (3.6-5.2) mmol/L Hgb O2 Saturation (95.0-98.0) % Glucose (65-105) mg/dl Lactate (0.7-2.1) mmol/L FiO2 % Sodium 142 (132-148) mmol/L Potassium 3.4 L (3.6-5.0) mmol/L Chloride 100 (98-107) mmol/L Carbon Dioxide 26 (21-33) mmol/L Anion Gap 19 (10-20) BUN 17 (7-21) mg/dL Creatinine 0.8 (0.5-1.4) mg/dL Est GFR ( Amer) > 60 Est GFR (Non-Af Amer) > 60 POC Glucose (mg/dL) 165 H 202 H (65-110) mg/dL Random Glucose 197 H (70-110) mg/dL Calcium 9.5 (8.4-10.5) mg/dL Phosphorus (2.5-4.5) mg/dL Magnesium (1.7-2.2) mg/dL Total Bilirubin (0.2-1.3) mg/dL AST (14-36) U/L ALT (7-56) U/L Alkaline Phosphatase (38-126) U/L Total Protein (5.8-8.3) g/dL Albumin (3.0-4.8) g/dL Globulin gm/dL Albumin/Globulin Ratio (1.1-1.8) Procalcitonin (0.19-0.49) NG/ML Venous Blood Potassium (3.6-5.2) mmol/L 08/01/17 08/01/17 08/01/17 Range/Units 14:00 13:59 13:36 WBC (4.5-11.0) 10^3/ul RBC (3.5-6.1) 10^6/uL Hgb (12.0-16.0) g/dL Hct (36.0-48.0) % MCV (80.0-105.0) fl MCH (25.0-35.0) pg MCHC (31.0-37.0) g/dl RDW (11.5-14.5) % Plt Count (120.0-450.0) 10^3/uL MPV (7.0-11.0) fl Gran % (50.0-68.0) % Lymph % (Auto) (22.0-35.0) % [place] % (Auto) (1.0-6.0) % Eos % (Auto) (1.5-5.0) % Baso % (Auto) (0.0-3.0) % Gran # (1.4-6.5) Lymph # (1.2-3.4) [place] # (0.1-0.6) Eos # (0.0-0.7) Baso # (0.0-2.0) K/mm3 Neutrophils % (Manual) (50.0-70.0) % Lymphocytes % (Manual) (22.0-35.0) % Monocytes % (Manual) (1.0-6.0) % Platelet Evaluation (NORMAL) Hypochromasia Anisocytosis (manual) pCO2 (35-45) mm/Hg pO2 56 H (30-55) mm/Hg HCO3 (21-28) mmol/L ABG pH (7.35-7.45) ABG Total CO2 (22-28) mmol.L ABG O2 Saturation (95-98) % ABG O2 Content (15-23) ML/dl ABG Base Excess (-2.0-3.0) mmol/L ABG Hemoglobin (11.7-17.4) g/dL ABG Carboxyhemoglobin (0.5-1.5) % POC ABG HHb (Measured) (0-5) % ABG Methemoglobin (0.0-3.0) % ABG O2 Capacity (16-24) mL/dl VBG pH 7.38 (7.32-7.43) VBG pCO2 47.0 (40-60) VBG HCO3 27.8 (21-28) mmol/l VBG Total CO2 29.2 H (22-28) mmol.L VBG O2 Sat (Calc) 93.4 H (40-65) % VBG Base Excess 2.0 (0.0-2.0) mmol/L VBG Potassium 3.4 L (3.6-5.2) mmol/L Hgb O2 Saturation (95.0-98.0) % Glucose 208 H (65-105) mg/dl Lactate 4.7 H* (0.7-2.1) mmol/L FiO2 21.0 % Sodium 140.0 (132-148) mmol/L Potassium (3.6-5.0) mmol/L Chloride 105.0 (98-107) mmol/L Carbon Dioxide (21-33) mmol/L Anion Gap (10-20) BUN (7-21) mg/dL Creatinine (0.5-1.4) mg/dL Est GFR ( Amer) Est GFR (Non-Af Amer) POC Glucose (mg/dL) 268 H (65-110) mg/dL Random Glucose (70-110) mg/dL Calcium (8.4-10.5) mg/dL Phosphorus (2.5-4.5) mg/dL Magnesium (1.7-2.2) mg/dL Total Bilirubin (0.2-1.3) mg/dL AST (14-36) U/L ALT (7-56) U/L Alkaline Phosphatase (38-126) U/L Total Protein (5.8-8.3) g/dL Albumin (3.0-4.8) g/dL Globulin gm/dL Albumin/Globulin Ratio (1.1-1.8) Procalcitonin 0.16 L (0.19-0.49) NG/ML Venous Blood Potassium 3.4 L (3.6-5.2) mmol/L 08/01/17 08/01/17 08/01/17 Range/Units 13:06 08:20 08:20 WBC 17.9 H (4.5-11.0) 10^3/ul RBC 3.31 L (3.5-6.1) 10^6/uL Hgb 9.8 L (12.0-16.0) g/dL Hct 29.1 L (36.0-48.0) % MCV 87.9 (80.0-105.0) fl MCH 29.6 (25.0-35.0) pg MCHC 33.7 (31.0-37.0) g/dl RDW 12.8 (11.5-14.5) % Plt Count 179 (120.0-450.0) 10^3/uL MPV 9.0 (7.0-11.0) fl Gran % 95.8 H (50.0-68.0) % Lymph % (Auto) 3.1 L (22.0-35.0) % [place] % (Auto) 1.1 (1.0-6.0) % Eos % (Auto) 0.0 L (1.5-5.0) % Baso % (Auto) 0.0 (0.0-3.0) % Gran # 17.20 H (1.4-6.5) Lymph # 0.6 L (1.2-3.4) [place] # 0.2 (0.1-0.6) Eos # 0.0 (0.0-0.7) Baso # 0.00 (0.0-2.0) K/mm3 Neutrophils % (Manual) 95 H (50.0-70.0) % Lymphocytes % (Manual) 4 L (22.0-35.0) % Monocytes % (Manual) 1 (1.0-6.0) % Platelet Evaluation Normal (NORMAL) Hypochromasia Slight Anisocytosis (manual) Slight pCO2 (35-45) mm/Hg pO2 (30-55) mm/Hg HCO3 (21-28) mmol/L ABG pH (7.35-7.45) ABG Total CO2 (22-28) mmol.L ABG O2 Saturation (95-98) % ABG O2 Content (15-23) ML/dl ABG Base Excess (-2.0-3.0) mmol/L ABG Hemoglobin (11.7-17.4) g/dL ABG Carboxyhemoglobin (0.5-1.5) % POC ABG HHb (Measured) (0-5) % ABG Methemoglobin (0.0-3.0) % ABG O2 Capacity (16-24) mL/dl VBG pH (7.32-7.43) VBG pCO2 (40-60) VBG HCO3 (21-28) mmol/l VBG Total CO2 (22-28) mmol.L VBG O2 Sat (Calc) (40-65) % VBG Base Excess (0.0-2.0) mmol/L VBG Potassium (3.6-5.2) mmol/L Hgb O2 Saturation (95.0-98.0) % Glucose (65-105) mg/dl Lactate (0.7-2.1) mmol/L FiO2 % Sodium 136 (132-148) mmol/L Potassium 4.1 (3.6-5.0) mmol/L Chloride 97 L (98-107) mmol/L Carbon Dioxide 27 (21-33) mmol/L Anion Gap 16 (10-20) BUN 18 (7-21) mg/dL Creatinine 0.9 (0.5-1.4) mg/dL Est GFR ( Amer) > 60 Est GFR (Non-Af Amer) > 60 POC Glucose (mg/dL) 315 H (65-110) mg/dL Random Glucose 384 H* (70-110) mg/dL Calcium 9.4 (8.4-10.5) mg/dL Phosphorus (2.5-4.5) mg/dL Magnesium (1.7-2.2) mg/dL Total Bilirubin 0.8 (0.2-1.3) mg/dL AST 26 (14-36) U/L ALT 46 (7-56) U/L Alkaline Phosphatase 124 (38-126) U/L Total Protein 6.9 (5.8-8.3) g/dL Albumin 3.8 (3.0-4.8) g/dL Globulin 3.1 gm/dL Albumin/Globulin Ratio 1.2 (1.1-1.8) Procalcitonin (0.19-0.49) NG/ML Venous Blood Potassium (3.6-5.2) mmol/L Laboratory Results - last 24 hr 08/01/17 08/01/17 08/01/17 08:20 08:20 13:06 WBC 17.9 H RBC 3.31 L Hgb 9.8 L Hct 29.1 L MCV 87.9 MCH 29.6 MCHC 33.7 RDW 12.8 Plt Count 179 MPV 9.0 Gran % 95.8 H Lymph % (Auto) 3.1 L [place] % (Auto) 1.1 Eos % (Auto) 0.0 L Baso % (Auto) 0.0 Gran # 17.20 H Lymph # 0.6 L [place] # 0.2 Eos # 0.0 Baso # 0.00 Neutrophils % (Manual) 95 H Lymphocytes % (Manual) 4 L Monocytes % (Manual) 1 Platelet Evaluation Normal Hypochromasia Slight Anisocytosis (manual) Slight pCO2 pO2 HCO3 ABG pH ABG Total CO2 ABG O2 Saturation ABG O2 Content ABG Base Excess ABG Hemoglobin ABG Carboxyhemoglobin POC ABG HHb (Measured) ABG Methemoglobin ABG O2 Capacity VBG pH VBG pCO2 VBG HCO3 VBG Total CO2 VBG O2 Sat (Calc) VBG Base Excess VBG Potassium Hgb O2 Saturation Glucose Lactate FiO2 Sodium 136 Potassium 4.1 Chloride 97 L Carbon Dioxide 27 Anion Gap 16 BUN 18 Creatinine 0.9 Est GFR ( Amer) > 60 Est GFR (Non-Af Amer) > 60 POC Glucose (mg/dL) 315 H Random Glucose 384 H* Calcium 9.4 Phosphorus Magnesium Total Bilirubin 0.8 AST 26 ALT 46 Alkaline Phosphatase 124 Total Protein 6.9 Albumin 3.8 Globulin 3.1 Albumin/Globulin Ratio 1.2 Procalcitonin Venous Blood Potassium 08/01/17 08/01/17 08/01/17 13:36 13:59 14:00 WBC RBC Hgb Hct MCV MCH MCHC RDW Plt Count MPV Gran % Lymph % (Auto) [place] % (Auto) Eos % (Auto) Baso % (Auto) Gran # Lymph # [place] # Eos # Baso # Neutrophils % (Manual) Lymphocytes % (Manual) Monocytes % (Manual) Platelet Evaluation Hypochromasia Anisocytosis (manual) pCO2 pO2 56 H HCO3 ABG pH ABG Total CO2 ABG O2 Saturation ABG O2 Content ABG Base Excess ABG Hemoglobin ABG Carboxyhemoglobin POC ABG HHb (Measured) ABG Methemoglobin ABG O2 Capacity VBG pH 7.38 VBG pCO2 47.0 VBG HCO3 27.8 VBG Total CO2 29.2 H VBG O2 Sat (Calc) 93.4 H VBG Base Excess 2.0 VBG Potassium 3.4 L Hgb O2 Saturation Glucose 208 H Lactate 4.7 H* FiO2 21.0 Sodium 140.0 Potassium Chloride 105.0 Carbon Dioxide Anion Gap BUN Creatinine Est GFR ( Amer) Est GFR (Non-Af Amer) POC Glucose (mg/dL) 268 H Random Glucose Calcium Phosphorus Magnesium Total Bilirubin AST ALT Alkaline Phosphatase Total Protein Albumin Globulin Albumin/Globulin Ratio Procalcitonin 0.16 L Venous Blood Potassium 3.4 L 08/01/17 08/01/17 08/01/17 14:00 15:01 16:05 WBC RBC Hgb Hct MCV MCH MCHC RDW Plt Count MPV Gran % Lymph % (Auto) [place] % (Auto) Eos % (Auto) Baso % (Auto) Gran # Lymph # [place] # Eos # Baso # Neutrophils % (Manual) Lymphocytes % (Manual) Monocytes % (Manual) Platelet Evaluation Hypochromasia Anisocytosis (manual) pCO2 pO2 HCO3 ABG pH ABG Total CO2 ABG O2 Saturation ABG O2 Content ABG Base Excess ABG Hemoglobin ABG Carboxyhemoglobin POC ABG HHb (Measured) ABG Methemoglobin ABG O2 Capacity VBG pH VBG pCO2 VBG HCO3 VBG Total CO2 VBG O2 Sat (Calc) VBG Base Excess VBG Potassium Hgb O2 Saturation Glucose Lactate FiO2 Sodium 142 Potassium 3.4 L Chloride 100 Carbon Dioxide 26 Anion Gap 19 BUN 17 Creatinine 0.8 Est GFR ( Amer) > 60 Est GFR (Non-Af Amer) > 60 POC Glucose (mg/dL) 202 H 165 H Random Glucose 197 H Calcium 9.5 Phosphorus Magnesium Total Bilirubin AST ALT Alkaline Phosphatase Total Protein Albumin Globulin Albumin/Globulin Ratio Procalcitonin Venous Blood Potassium 08/01/17 08/01/17 08/01/17 18:38 19:56 21:21 WBC RBC Hgb Hct MCV MCH MCHC RDW Plt Count MPV Gran % Lymph % (Auto) [place] % (Auto) Eos % (Auto) Baso % (Auto) Gran # Lymph # [place] # Eos # Baso # Neutrophils % (Manual) Lymphocytes % (Manual) Monocytes % (Manual) Platelet Evaluation Hypochromasia Anisocytosis (manual) pCO2 pO2 HCO3 ABG pH ABG Total CO2 ABG O2 Saturation ABG O2 Content ABG Base Excess ABG Hemoglobin ABG Carboxyhemoglobin POC ABG HHb (Measured) ABG Methemoglobin ABG O2 Capacity VBG pH VBG pCO2 VBG HCO3 VBG Total CO2 VBG O2 Sat (Calc) VBG Base Excess VBG Potassium Hgb O2 Saturation Glucose Lactate FiO2 Sodium Potassium Chloride Carbon Dioxide Anion Gap BUN Creatinine Est GFR ( Amer) Est GFR (Non-Af Amer) POC Glucose (mg/dL) 121 H 96 136 H Random Glucose Calcium Phosphorus Magnesium Total Bilirubin AST ALT Alkaline Phosphatase Total Protein Albumin Globulin Albumin/Globulin Ratio Procalcitonin Venous Blood Potassium 08/01/17 08/01/17 08/01/17 22:35 23:04 23:04 WBC RBC Hgb Hct MCV MCH MCHC RDW Plt Count MPV Gran % Lymph % (Auto) [place] % (Auto) Eos % (Auto) Baso % (Auto) Gran # Lymph # [place] # Eos # Baso # Neutrophils % (Manual) Lymphocytes % (Manual) Monocytes % (Manual) Platelet Evaluation Hypochromasia Anisocytosis (manual) pCO2 pO2 36 HCO3 ABG pH ABG Total CO2 ABG O2 Saturation ABG O2 Content ABG Base Excess ABG Hemoglobin ABG Carboxyhemoglobin POC ABG HHb (Measured) ABG Methemoglobin ABG O2 Capacity VBG pH 7.42 VBG pCO2 50.0 VBG HCO3 32.4 H VBG Total CO2 33.9 H VBG O2 Sat (Calc) 76.3 H VBG Base Excess 6.6 H VBG Potassium 4.3 Hgb O2 Saturation Glucose 153 H Lactate 2.0 FiO2 21.0 Sodium 142.0 142 Potassium 4.1 Chloride 108.0 H 103 Carbon Dioxide 30 Anion Gap 13 BUN 21 Creatinine 0.9 Est GFR ( Amer) > 60 Est GFR (Non-Af Amer) > 60 POC Glucose (mg/dL) 160 H Random Glucose 145 H Calcium 9.4 Phosphorus Magnesium Total Bilirubin AST ALT Alkaline Phosphatase Total Protein Albumin Globulin Albumin/Globulin Ratio Procalcitonin Venous Blood Potassium 4.3 08/01/17 08/02/17 08/02/17 23:16 00:31 01:46 WBC RBC Hgb Hct MCV MCH MCHC RDW Plt Count MPV Gran % Lymph % (Auto) [place] % (Auto) Eos % (Auto) Baso % (Auto) Gran # Lymph # [place] # Eos # Baso # Neutrophils % (Manual) Lymphocytes % (Manual) Monocytes % (Manual) Platelet Evaluation Hypochromasia Anisocytosis (manual) pCO2 pO2 HCO3 ABG pH ABG Total CO2 ABG O2 Saturation ABG O2 Content ABG Base Excess ABG Hemoglobin ABG Carboxyhemoglobin POC ABG HHb (Measured) ABG Methemoglobin ABG O2 Capacity VBG pH VBG pCO2 VBG HCO3 VBG Total CO2 VBG O2 Sat (Calc) VBG Base Excess VBG Potassium Hgb O2 Saturation Glucose Lactate FiO2 Sodium Potassium Chloride Carbon Dioxide Anion Gap BUN Creatinine Est GFR ( Amer) Est GFR (Non-Af Amer) POC Glucose (mg/dL) 166 H 152 H 130 H Random Glucose Calcium Phosphorus Magnesium Total Bilirubin AST ALT Alkaline Phosphatase Total Protein Albumin Globulin Albumin/Globulin Ratio Procalcitonin Venous Blood Potassium 08/02/17 08/02/17 08/02/17 02:26 02:35 03:11 WBC RBC Hgb Hct MCV MCH MCHC RDW Plt Count MPV Gran % Lymph % (Auto) [place] % (Auto) Eos % (Auto) Baso % (Auto) Gran # Lymph # [place] # Eos # Baso # Neutrophils % (Manual) Lymphocytes % (Manual) Monocytes % (Manual) Platelet Evaluation Hypochromasia Anisocytosis (manual) pCO2 pO2 31 HCO3 ABG pH ABG Total CO2 ABG O2 Saturation ABG O2 Content ABG Base Excess ABG Hemoglobin ABG Carboxyhemoglobin POC ABG HHb (Measured) ABG Methemoglobin ABG O2 Capacity VBG pH 7.38 VBG pCO2 52.0 VBG HCO3 30.8 H VBG Total CO2 32.4 H VBG O2 Sat (Calc) 62.2 VBG Base Excess 4.4 H VBG Potassium 3.6 Hgb O2 Saturation Glucose 107 H Lactate 1.8 FiO2 21.0 Sodium 145.0 Potassium Chloride 112.0 H Carbon Dioxide Anion Gap BUN Creatinine Est GFR ( Amer) Est GFR (Non-Af Amer) POC Glucose (mg/dL) 104 136 H Random Glucose Calcium Phosphorus Magnesium Total Bilirubin AST ALT Alkaline Phosphatase Total Protein Albumin Globulin Albumin/Globulin Ratio Procalcitonin Venous Blood Potassium 3.6 08/02/17 08/02/17 08/02/17 04:30 04:30 04:42 WBC 18.0 H RBC 3.27 L Hgb 9.6 L Hct 29.9 L MCV 91.4 D MCH 29.4 MCHC 32.1 RDW 13.3 Plt Count 223 MPV 9.6 Gran % 93.9 H Lymph % (Auto) 4.3 L [place] % (Auto) 1.8 Eos % (Auto) 0.0 L Baso % (Auto) 0.0 Gran # 16.90 H Lymph # 0.8 L [place] # 0.3 Eos # 0.0 Baso # 0.00 Neutrophils % (Manual) Lymphocytes % (Manual) Monocytes % (Manual) Platelet Evaluation Hypochromasia Anisocytosis (manual) pCO2 pO2 HCO3 ABG pH ABG Total CO2 ABG O2 Saturation ABG O2 Content ABG Base Excess ABG Hemoglobin ABG Carboxyhemoglobin POC ABG HHb (Measured) ABG Methemoglobin ABG O2 Capacity VBG pH VBG pCO2 VBG HCO3 VBG Total CO2 VBG O2 Sat (Calc) VBG Base Excess VBG Potassium Hgb O2 Saturation Glucose Lactate FiO2 Sodium 149 H Potassium 3.7 Chloride 107 Carbon Dioxide 30 Anion Gap 16 BUN 24 H Creatinine 1.0 Est GFR ( Amer) > 60 Est GFR (Non-Af Amer) 56 POC Glucose (mg/dL) 158 H Random Glucose 96 Calcium 9.8 Phosphorus 3.2 Magnesium 1.9 Total Bilirubin 0.6 AST 25 ALT 35 Alkaline Phosphatase 111 Total Protein 7.2 Albumin 3.7 Globulin 3.5 Albumin/Globulin Ratio 1.0 L Procalcitonin Venous Blood Potassium 08/02/17 08/02/17 08/02/17 05:30 05:47 07:49 WBC RBC Hgb Hct MCV MCH MCHC RDW Plt Count MPV Gran % Lymph % (Auto) [place] % (Auto) Eos % (Auto) Baso % (Auto) Gran # Lymph # [place] # Eos # Baso # Neutrophils % (Manual) Lymphocytes % (Manual) Monocytes % (Manual) Platelet Evaluation Hypochromasia Anisocytosis (manual) pCO2 38 pO2 72.0 L HCO3 26.4 ABG pH 7.45 ABG Total CO2 27.6 ABG O2 Saturation 98.0 ABG O2 Content 11.9 L ABG Base Excess 2.3 ABG Hemoglobin 8.9 L ABG Carboxyhemoglobin 2.5 H POC ABG HHb (Measured) 1.9 ABG Methemoglobin 1.2 ABG O2 Capacity 12.1 L VBG pH VBG pCO2 VBG HCO3 VBG Total CO2 VBG O2 Sat (Calc) VBG Base Excess VBG Potassium Hgb O2 Saturation 94.5 L Glucose Lactate FiO2 40.0 Sodium Potassium Chloride Carbon Dioxide Anion Gap BUN Creatinine Est GFR ( Amer) Est GFR (Non-Af Amer) POC Glucose (mg/dL) 147 H 159 H Random Glucose Calcium Phosphorus Magnesium Total Bilirubin AST ALT Alkaline Phosphatase Total Protein Albumin Globulin Albumin/Globulin Ratio Procalcitonin Venous Blood Potassium 08/02/17 08/02/17 08/02/17 10:01 10:57 13:00 WBC RBC Hgb Hct MCV MCH MCHC RDW Plt Count MPV Gran % Lymph % (Auto) [place] % (Auto) Eos % (Auto) Baso % (Auto) Gran # Lymph # [place] # Eos # Baso # Neutrophils % (Manual) Lymphocytes % (Manual) Monocytes % (Manual) Platelet Evaluation Hypochromasia Anisocytosis (manual) pCO2 pO2 HCO3 ABG pH ABG Total CO2 ABG O2 Saturation ABG O2 Content ABG Base Excess ABG Hemoglobin ABG Carboxyhemoglobin POC ABG HHb (Measured) ABG Methemoglobin ABG O2 Capacity VBG pH VBG pCO2 VBG HCO3 VBG Total CO2 VBG O2 Sat (Calc) VBG Base Excess VBG Potassium Hgb O2 Saturation Glucose Lactate FiO2 Sodium Potassium Chloride Carbon Dioxide Anion Gap BUN Creatinine Est GFR ( Amer) Est GFR (Non-Af Amer) POC Glucose (mg/dL) 167 H 120 H 110 Random Glucose Calcium Phosphorus Magnesium Total Bilirubin AST ALT Alkaline Phosphatase Total Protein Albumin Globulin Albumin/Globulin Ratio Procalcitonin Venous Blood Potassium Fingerstick Blood Sugar Results: 354 Review of Systems - Review of Systems Review of Systems: Please refer to [facility] Critical Care Progress Note - Ventilator Checklist Head of Bed 30 Degrees: Yes Daily Sedation Vacation: Yes Daily Assessment of Readiness to Wean: Yes PUD Prophalyxis: Yes DVT Prophylaxis: Yes - Vent Settings MODE:: CPAP - Prophylaxis GI Prophylaxis GI: PPI - Prophylaxis DVT Prophylaxis DVT: SCDs - Nutrition Nutrition: Nutrition Category Date Time Status NPO Diet [DIET] Diets 08/01/17 Lunch Ordered Assessment/Plan - Assessment and Plan (Free Text) Assessment: 67 year old female with a past medical history of endometrial carcinoma, DM2, HTN and HLD who presented with nausea, emesis, headache, and increasingly obtunded state. She was found to have intracranial hemorrhage at previous site of craniotomy with significant midline shift. She was intubated for airway protection. Biopsies revealed that the mass removed was metastatic disease. Patient was also found to have blood cultures positive for gram positive cocci. Surgery is consulted for removal and possible replacement of left chest wall port. 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, 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 -Continue Decadron -Continue Keppra for seizure prophylaxis with EEG read pending -Continue hypertonic saline, with a goal of >150 serum sodium -Continue Ofirmev PRN for temperature precautions -Continue to maintain euglycemia, normothermia and aspiration precautions with HOB above 30 degrees -Neurosurgery recommending no intervention and conservative management -Neurosurgery and Neurology consulted, all recommendations appreciated Pulm: -Continue mechanical ventilation on PRVC setting with daily weaning trials of PS /CPAP -Chest X-Ray notable for stable limited left basilar atelectasis or infiltrate with none seen the right -Continue Propofol -ABG showing improvement of previous alkalosis due to hyperventilation -Maintain oxygen saturation above 92% Cardio: -EKG showing normal sinus rhythm -Previous ECHO done in June showed LVEF of 50% GI: -Continue Protonix -NPO diet Renal: -BUN/Creatinine stable at 24/1.0 -Continue to monitor and replenish electrolytes as clinically indicated with daily CMP's Endo: -Continue Insulin drip to maintain euglycemia -Continue Accucheck Q1H Heme/Onc: -See path report above -Last chemo treatment was three months ago -Patient not a candidate for pharmacotherapy for DVT prophylaxis with ICH -H/H and platelets stable -Continue to monitor with daily CBC's ID: -Blood cultures showing gram positive cocci -Port in left chest wall to be removed and possibly replaced by surgery, pending families wishes -Currently with improving leukocytosis of 18, afebrile, normotensive and with no tachycardia -Started IV Vancomycin -Surgery consulted, all recommendations appreciated GI Prophylaxis: Protonix DVT Prophylaxis: SCD's Disposition: Family to discuss DNR/DNI and further goals of care. Poor prognosis overall. Patient seen and case discussed with attending, Dr. Lambert. - Date & Time Date: 08/02/17 Time: 13:51 <Fausto DIETRICH,Yariel H - Last Filed: 08/02/17 16:26> CCU Objective - Vital Signs / Intake & Output Vital Signs (Last 4 hours): Vital Signs Pulse 08/02/17 14:00 86 Intake and Output (Last 8hrs): Intake & Output 08/02/17 08/02/17 08/02/17 06:59 14:59 22:59 Intake Total 855 48.3 0 Output Total 750 Balance 105 48.3 0 Weight 106 lb Intake: IV 855 48.3 0 Left Antecubital 600 Left Subclavian 38 Output: Urine 750 2-way Urethral 750 - Medications Active Medications: Active Medications Generic Name Dose Route Start Last Admin Trade Name Freq PRN Reason Stop Dose Admin Dexamethasone 10 mg 08/01/17 22:01 08/02/17 14:35 Decadron Inj IVP 10 mg Q6 VANIA Administration Acetaminophen 1,000 mg in 100 mls @ 400 mls/hr 08/01/17 08:05 Ofirmev IVPB 08/03/17 08:06 Q6H PRN T>99.8 Levetiracetam 500 mg in 100 mls @ 460 mls/hr 08/01/17 10:00 08/02/17 09:36 Keppra 500mg Ivpb IVPB 460 mls/hr Q12 VANIA Administration Insulin Human Regular 100 100 mls @ 5 mls/hr 08/01/17 09:44 08/02/17 13:11 units/ Sodium Chloride IV 3 units/hr .Q20H PRN 3 mls/hr TITRATE PER MD ORDER Titration Protocol 5 UNITS/HR Propofol 1,000 mg in 100 mls @ 3.239 mls/hr 08/01/17 09:50 08/02/17 16:12 Diprivan IV 0 mcg/kg/min .Q24H PRN 0 mls/hr Agitation Titration Protocol 5 MCG/KG/MIN Sodium Chloride 500 mls @ 50 mls/hr 08/01/17 18:45 08/02/17 16:14 Hypertonic Saline 3% IV 50 mls/hr .Q10H VANIA Administration Vancomycin HCl 1 gm in 250 mls @ 167 mls/hr 08/02/17 12:15 08/02/17 13:17 Vancomycin 1gm IVPB 167 mls/hr Q12H VANIA Administration Protocol Aztreonam 100 mls @ 100 mls/hr 08/02/17 15:15 08/02/17 16:13 Azactam 1 Gm IVPB 100 mls/hr Q8 VANIA Administration Protocol Insulin Human Regular 0 units 08/01/17 08:00 08/01/17 09:33 Humulin R Med SC 8 units Q4H VANIA Administration Protocol Nystatin/Triamcinolone Acetonide 1 ea 08/01/17 20:55 Nystatin/Triamcinolone Cream TOP BID PRN Excoriation Pantoprazole Sodium 40 mg 08/01/17 10:00 08/02/17 09:36 Protonix Inj IVP 40 mg DAILY VANIA Administration - Patient Studies Lab Studies: Microbiology Studies 08/01/17 08:09 MRSA Culture (Admit) - Final Nose MRSA NOT DETECTED 08/01/17 07:30 Blood Culture - Preliminary Blood-Venous Gram Positive Cocci Gram Stain - Final 08/01/17 08:07 Blood Culture - Preliminary Blood-Venous Gram Positive Cocci Gram Stain - Final Lab Studies 08/02/17 08/02/17 08/02/17 Range/Units 15:21 13:00 10:57 WBC (4.5-11.0) 10^3/ul RBC (3.5-6.1) 10^6/uL Hgb (12.0-16.0) g/dL Hct (36.0-48.0) % MCV (80.0-105.0) fl MCH (25.0-35.0) pg MCHC (31.0-37.0) g/dl RDW (11.5-14.5) % Plt Count (120.0-450.0) 10^3/uL MPV (7.0-11.0) fl Gran % (50.0-68.0) % Lymph % (Auto) (22.0-35.0) % [place] % (Auto) (1.0-6.0) % Eos % (Auto) (1.5-5.0) % Baso % (Auto) (0.0-3.0) % Gran # (1.4-6.5) Lymph # (1.2-3.4) [place] # (0.1-0.6) Eos # (0.0-0.7) Baso # (0.0-2.0) K/mm3 Neutrophils % (Manual) (50.0-70.0) % Lymphocytes % (Manual) (22.0-35.0) % Monocytes % (Manual) (1.0-6.0) % Platelet Evaluation (NORMAL) Hypochromasia Anisocytosis (manual) pCO2 (35-45) mm/Hg pO2 (30-55) mm/Hg HCO3 (21-28) mmol/L ABG pH (7.35-7.45) ABG Total CO2 (22-28) mmol.L ABG O2 Saturation (95-98) % ABG O2 Content (15-23) ML/dl ABG Base Excess (-2.0-3.0) mmol/L ABG Hemoglobin (11.7-17.4) g/dL ABG Carboxyhemoglobin (0.5-1.5) % POC ABG HHb (Measured) (0-5) % ABG Methemoglobin (0.0-3.0) % ABG O2 Capacity (16-24) mL/dl VBG pH (7.32-7.43) VBG pCO2 (40-60) VBG HCO3 (21-28) mmol/l VBG Total CO2 (22-28) mmol.L VBG O2 Sat (Calc) (40-65) % VBG Base Excess (0.0-2.0) mmol/L VBG Potassium (3.6-5.2) mmol/L Hgb O2 Saturation (95.0-98.0) % Glucose (65-105) mg/dl Lactate (0.7-2.1) mmol/L FiO2 % Sodium (132-148) mmol/L Potassium (3.6-5.0) mmol/L Chloride (98-107) mmol/L Carbon Dioxide (21-33) mmol/L Anion Gap (10-20) BUN (7-21) mg/dL Creatinine (0.5-1.4) mg/dL Est GFR ( Amer) Est GFR (Non-Af Amer) POC Glucose (mg/dL) 134 H 110 120 H (65-110) mg/dL Random Glucose (70-110) mg/dL Calcium (8.4-10.5) mg/dL Phosphorus (2.5-4.5) mg/dL Magnesium (1.7-2.2) mg/dL Total Bilirubin (0.2-1.3) mg/dL AST (14-36) U/L ALT (7-56) U/L Alkaline Phosphatase (38-126) U/L Total Protein (5.8-8.3) g/dL Albumin (3.0-4.8) g/dL Globulin gm/dL Albumin/Globulin Ratio (1.1-1.8) Procalcitonin (0.19-0.49) NG/ML Venous Blood Potassium (3.6-5.2) mmol/L 08/02/17 08/02/17 08/02/17 Range/Units 10:01 07:49 05:47 WBC (4.5-11.0) 10^3/ul RBC (3.5-6.1) 10^6/uL Hgb (12.0-16.0) g/dL Hct (36.0-48.0) % MCV (80.0-105.0) fl MCH (25.0-35.0) pg MCHC (31.0-37.0) g/dl RDW (11.5-14.5) % Plt Count (120.0-450.0) 10^3/uL MPV (7.0-11.0) fl Gran % (50.0-68.0) % Lymph % (Auto) (22.0-35.0) % [place] % (Auto) (1.0-6.0) % Eos % (Auto) (1.5-5.0) % Baso % (Auto) (0.0-3.0) % Gran # (1.4-6.5) Lymph # (1.2-3.4) [place] # (0.1-0.6) Eos # (0.0-0.7) Baso # (0.0-2.0) K/mm3 Neutrophils % (Manual) (50.0-70.0) % Lymphocytes % (Manual) (22.0-35.0) % Monocytes % (Manual) (1.0-6.0) % Platelet Evaluation (NORMAL) Hypochromasia Anisocytosis (manual) pCO2 (35-45) mm/Hg pO2 (30-55) mm/Hg HCO3 (21-28) mmol/L ABG pH (7.35-7.45) ABG Total CO2 (22-28) mmol.L ABG O2 Saturation (95-98) % ABG O2 Content (15-23) ML/dl ABG Base Excess (-2.0-3.0) mmol/L ABG Hemoglobin (11.7-17.4) g/dL ABG Carboxyhemoglobin (0.5-1.5) % POC ABG HHb (Measured) (0-5) % ABG Methemoglobin (0.0-3.0) % ABG O2 Capacity (16-24) mL/dl VBG pH (7.32-7.43) VBG pCO2 (40-60) VBG HCO3 (21-28) mmol/l VBG Total CO2 (22-28) mmol.L VBG O2 Sat (Calc) (40-65) % VBG Base Excess (0.0-2.0) mmol/L VBG Potassium (3.6-5.2) mmol/L Hgb O2 Saturation (95.0-98.0) % Glucose (65-105) mg/dl Lactate (0.7-2.1) mmol/L FiO2 % Sodium (132-148) mmol/L Potassium (3.6-5.0) mmol/L Chloride (98-107) mmol/L Carbon Dioxide (21-33) mmol/L Anion Gap (10-20) BUN (7-21) mg/dL Creatinine (0.5-1.4) mg/dL Est GFR ( Amer) Est GFR (Non-Af Amer) POC Glucose (mg/dL) 167 H 159 H 147 H (65-110) mg/dL Random Glucose (70-110) mg/dL Calcium (8.4-10.5) mg/dL Phosphorus (2.5-4.5) mg/dL Magnesium (1.7-2.2) mg/dL Total Bilirubin (0.2-1.3) mg/dL AST (14-36) U/L ALT (7-56) U/L Alkaline Phosphatase (38-126) U/L Total Protein (5.8-8.3) g/dL Albumin (3.0-4.8) g/dL Globulin gm/dL Albumin/Globulin Ratio (1.1-1.8) Procalcitonin (0.19-0.49) NG/ML Venous Blood Potassium (3.6-5.2) mmol/L 08/02/17 08/02/17 08/02/17 Range/Units 05:30 04:42 04:30 WBC (4.5-11.0) 10^3/ul RBC (3.5-6.1) 10^6/uL Hgb (12.0-16.0) g/dL Hct (36.0-48.0) % MCV (80.0-105.0) fl MCH (25.0-35.0) pg MCHC (31.0-37.0) g/dl RDW (11.5-14.5) % Plt Count (120.0-450.0) 10^3/uL MPV (7.0-11.0) fl Gran % (50.0-68.0) % Lymph % (Auto) (22.0-35.0) % [place] % (Auto) (1.0-6.0) % Eos % (Auto) (1.5-5.0) % Baso % (Auto) (0.0-3.0) % Gran # (1.4-6.5) Lymph # (1.2-3.4) [place] # (0.1-0.6) Eos # (0.0-0.7) Baso # (0.0-2.0) K/mm3 Neutrophils % (Manual) (50.0-70.0) % Lymphocytes % (Manual) (22.0-35.0) % Monocytes % (Manual) (1.0-6.0) % Platelet Evaluation (NORMAL) Hypochromasia Anisocytosis (manual) pCO2 38 (35-45) mm/Hg pO2 72.0 L (30-55) mm/Hg HCO3 26.4 (21-28) mmol/L ABG pH 7.45 (7.35-7.45) ABG Total CO2 27.6 (22-28) mmol.L ABG O2 Saturation 98.0 (95-98) % ABG O2 Content 11.9 L (15-23) ML/dl ABG Base Excess 2.3 (-2.0-3.0) mmol/L ABG Hemoglobin 8.9 L (11.7-17.4) g/dL ABG Carboxyhemoglobin 2.5 H (0.5-1.5) % POC ABG HHb (Measured) 1.9 (0-5) % ABG Methemoglobin 1.2 (0.0-3.0) % ABG O2 Capacity 12.1 L (16-24) mL/dl VBG pH (7.32-7.43) VBG pCO2 (40-60) VBG HCO3 (21-28) mmol/l VBG Total CO2 (22-28) mmol.L VBG O2 Sat (Calc) (40-65) % VBG Base Excess (0.0-2.0) mmol/L VBG Potassium (3.6-5.2) mmol/L Hgb O2 Saturation 94.5 L (95.0-98.0) % Glucose (65-105) mg/dl Lactate (0.7-2.1) mmol/L FiO2 40.0 % Sodium 149 H (132-148) mmol/L Potassium 3.7 (3.6-5.0) mmol/L Chloride 107 (98-107) mmol/L Carbon Dioxide 30 (21-33) mmol/L Anion Gap 16 (10-20) BUN 24 H (7-21) mg/dL Creatinine 1.0 (0.5-1.4) mg/dL Est GFR ( Amer) > 60 Est GFR (Non-Af Amer) 56 POC Glucose (mg/dL) 158 H (65-110) mg/dL Random Glucose 96 (70-110) mg/dL Calcium 9.8 (8.4-10.5) mg/dL Phosphorus 3.2 (2.5-4.5) mg/dL Magnesium 1.9 (1.7-2.2) mg/dL Total Bilirubin 0.6 (0.2-1.3) mg/dL AST 25 (14-36) U/L ALT 35 (7-56) U/L Alkaline Phosphatase 111 (38-126) U/L Total Protein 7.2 (5.8-8.3) g/dL Albumin 3.7 (3.0-4.8) g/dL Globulin 3.5 gm/dL Albumin/Globulin Ratio 1.0 L (1.1-1.8) Procalcitonin (0.19-0.49) NG/ML Venous Blood Potassium (3.6-5.2) mmol/L 08/02/17 08/02/17 08/02/17 Range/Units 04:30 03:11 02:35 WBC 18.0 H (4.5-11.0) 10^3/ul RBC 3.27 L (3.5-6.1) 10^6/uL Hgb 9.6 L (12.0-16.0) g/dL Hct 29.9 L (36.0-48.0) % MCV 91.4 D (80.0-105.0) fl MCH 29.4 (25.0-35.0) pg MCHC 32.1 (31.0-37.0) g/dl RDW 13.3 (11.5-14.5) % Plt Count 223 (120.0-450.0) 10^3/uL MPV 9.6 (7.0-11.0) fl Gran % 93.9 H (50.0-68.0) % Lymph % (Auto) 4.3 L (22.0-35.0) % [place] % (Auto) 1.8 (1.0-6.0) % Eos % (Auto) 0.0 L (1.5-5.0) % Baso % (Auto) 0.0 (0.0-3.0) % Gran # 16.90 H (1.4-6.5) Lymph # 0.8 L (1.2-3.4) [place] # 0.3 (0.1-0.6) Eos # 0.0 (0.0-0.7) Baso # 0.00 (0.0-2.0) K/mm3 Neutrophils % (Manual) (50.0-70.0) % Lymphocytes % (Manual) (22.0-35.0) % Monocytes % (Manual) (1.0-6.0) % Platelet Evaluation (NORMAL) Hypochromasia Anisocytosis (manual) pCO2 (35-45) mm/Hg pO2 31 (30-55) mm/Hg HCO3 (21-28) mmol/L ABG pH (7.35-7.45) ABG Total CO2 (22-28) mmol.L ABG O2 Saturation (95-98) % ABG O2 Content (15-23) ML/dl ABG Base Excess (-2.0-3.0) mmol/L ABG Hemoglobin (11.7-17.4) g/dL ABG Carboxyhemoglobin (0.5-1.5) % POC ABG HHb (Measured) (0-5) % ABG Methemoglobin (0.0-3.0) % ABG O2 Capacity (16-24) mL/dl VBG pH 7.38 (7.32-7.43) VBG pCO2 52.0 (40-60) VBG HCO3 30.8 H (21-28) mmol/l VBG Total CO2 32.4 H (22-28) mmol.L VBG O2 Sat (Calc) 62.2 (40-65) % VBG Base Excess 4.4 H (0.0-2.0) mmol/L VBG Potassium 3.6 (3.6-5.2) mmol/L Hgb O2 Saturation (95.0-98.0) % Glucose 107 H (65-105) mg/dl Lactate 1.8 (0.7-2.1) mmol/L FiO2 21.0 % Sodium 145.0 (132-148) mmol/L Potassium (3.6-5.0) mmol/L Chloride 112.0 H (98-107) mmol/L Carbon Dioxide (21-33) mmol/L Anion Gap (10-20) BUN (7-21) mg/dL Creatinine (0.5-1.4) mg/dL Est GFR ( Amer) Est GFR (Non-Af Amer) POC Glucose (mg/dL) 136 H (65-110) mg/dL Random Glucose (70-110) mg/dL Calcium (8.4-10.5) mg/dL Phosphorus (2.5-4.5) mg/dL Magnesium (1.7-2.2) mg/dL Total Bilirubin (0.2-1.3) mg/dL AST (14-36) U/L ALT (7-56) U/L Alkaline Phosphatase (38-126) U/L Total Protein (5.8-8.3) g/dL Albumin (3.0-4.8) g/dL Globulin gm/dL Albumin/Globulin Ratio (1.1-1.8) Procalcitonin (0.19-0.49) NG/ML Venous Blood Potassium 3.6 (3.6-5.2) mmol/L 08/02/17 08/02/17 08/02/17 Range/Units 02:26 01:46 00:31 WBC (4.5-11.0) 10^3/ul RBC (3.5-6.1) 10^6/uL Hgb (12.0-16.0) g/dL Hct (36.0-48.0) % MCV (80.0-105.0) fl MCH (25.0-35.0) pg MCHC (31.0-37.0) g/dl RDW (11.5-14.5) % Plt Count (120.0-450.0) 10^3/uL MPV (7.0-11.0) fl Gran % (50.0-68.0) % Lymph % (Auto) (22.0-35.0) % [place] % (Auto) (1.0-6.0) % Eos % (Auto) (1.5-5.0) % Baso % (Auto) (0.0-3.0) % Gran # (1.4-6.5) Lymph # (1.2-3.4) [place] # (0.1-0.6) Eos # (0.0-0.7) Baso # (0.0-2.0) K/mm3 Neutrophils % (Manual) (50.0-70.0) % Lymphocytes % (Manual) (22.0-35.0) % Monocytes % (Manual) (1.0-6.0) % Platelet Evaluation (NORMAL) Hypochromasia Anisocytosis (manual) pCO2 (35-45) mm/Hg pO2 (30-55) mm/Hg HCO3 (21-28) mmol/L ABG pH (7.35-7.45) ABG Total CO2 (22-28) mmol.L ABG O2 Saturation (95-98) % ABG O2 Content (15-23) ML/dl ABG Base Excess (-2.0-3.0) mmol/L ABG Hemoglobin (11.7-17.4) g/dL ABG Carboxyhemoglobin (0.5-1.5) % POC ABG HHb (Measured) (0-5) % ABG Methemoglobin (0.0-3.0) % ABG O2 Capacity (16-24) mL/dl VBG pH (7.32-7.43) VBG pCO2 (40-60) VBG HCO3 (21-28) mmol/l VBG Total CO2 (22-28) mmol.L VBG O2 Sat (Calc) (40-65) % VBG Base Excess (0.0-2.0) mmol/L VBG Potassium (3.6-5.2) mmol/L Hgb O2 Saturation (95.0-98.0) % Glucose (65-105) mg/dl Lactate (0.7-2.1) mmol/L FiO2 % Sodium (132-148) mmol/L Potassium (3.6-5.0) mmol/L Chloride (98-107) mmol/L Carbon Dioxide (21-33) mmol/L Anion Gap (10-20) BUN (7-21) mg/dL Creatinine (0.5-1.4) mg/dL Est GFR ( Amer) Est GFR (Non-Af Amer) POC Glucose (mg/dL) 104 130 H 152 H (65-110) mg/dL Random Glucose (70-110) mg/dL Calcium (8.4-10.5) mg/dL Phosphorus (2.5-4.5) mg/dL Magnesium (1.7-2.2) mg/dL Total Bilirubin (0.2-1.3) mg/dL AST (14-36) U/L ALT (7-56) U/L Alkaline Phosphatase (38-126) U/L Total Protein (5.8-8.3) g/dL Albumin (3.0-4.8) g/dL Globulin gm/dL Albumin/Globulin Ratio (1.1-1.8) Procalcitonin (0.19-0.49) NG/ML Venous Blood Potassium (3.6-5.2) mmol/L 08/01/17 08/01/17 08/01/17 Range/Units 23:16 23:04 23:04 WBC (4.5-11.0) 10^3/ul RBC (3.5-6.1) 10^6/uL Hgb (12.0-16.0) g/dL Hct (36.0-48.0) % MCV (80.0-105.0) fl MCH (25.0-35.0) pg MCHC (31.0-37.0) g/dl RDW (11.5-14.5) % Plt Count (120.0-450.0) 10^3/uL MPV (7.0-11.0) fl Gran % (50.0-68.0) % Lymph % (Auto) (22.0-35.0) % [place] % (Auto) (1.0-6.0) % Eos % (Auto) (1.5-5.0) % Baso % (Auto) (0.0-3.0) % Gran # (1.4-6.5) Lymph # (1.2-3.4) [place] # (0.1-0.6) Eos # (0.0-0.7) Baso # (0.0-2.0) K/mm3 Neutrophils % (Manual) (50.0-70.0) % Lymphocytes % (Manual) (22.0-35.0) % Monocytes % (Manual) (1.0-6.0) % Platelet Evaluation (NORMAL) Hypochromasia Anisocytosis (manual) pCO2 (35-45) mm/Hg pO2 36 (30-55) mm/Hg HCO3 (21-28) mmol/L ABG pH (7.35-7.45) ABG Total CO2 (22-28) mmol.L ABG O2 Saturation (95-98) % ABG O2 Content (15-23) ML/dl ABG Base Excess (-2.0-3.0) mmol/L ABG Hemoglobin (11.7-17.4) g/dL ABG Carboxyhemoglobin (0.5-1.5) % POC ABG HHb (Measured) (0-5) % ABG Methemoglobin (0.0-3.0) % ABG O2 Capacity (16-24) mL/dl VBG pH 7.42 (7.32-7.43) VBG pCO2 50.0 (40-60) VBG HCO3 32.4 H (21-28) mmol/l VBG Total CO2 33.9 H (22-28) mmol.L VBG O2 Sat (Calc) 76.3 H (40-65) % VBG Base Excess 6.6 H (0.0-2.0) mmol/L VBG Potassium 4.3 (3.6-5.2) mmol/L Hgb O2 Saturation (95.0-98.0) % Glucose 153 H (65-105) mg/dl Lactate 2.0 (0.7-2.1) mmol/L FiO2 21.0 % Sodium 142 142.0 (132-148) mmol/L Potassium 4.1 (3.6-5.0) mmol/L Chloride 103 108.0 H (98-107) mmol/L Carbon Dioxide 30 (21-33) mmol/L Anion Gap 13 (10-20) BUN 21 (7-21) mg/dL Creatinine 0.9 (0.5-1.4) mg/dL Est GFR ( Amer) > 60 Est GFR (Non-Af Amer) > 60 POC Glucose (mg/dL) 166 H (65-110) mg/dL Random Glucose 145 H (70-110) mg/dL Calcium 9.4 (8.4-10.5) mg/dL Phosphorus (2.5-4.5) mg/dL Magnesium (1.7-2.2) mg/dL Total Bilirubin (0.2-1.3) mg/dL AST (14-36) U/L ALT (7-56) U/L Alkaline Phosphatase (38-126) U/L Total Protein (5.8-8.3) g/dL Albumin (3.0-4.8) g/dL Globulin gm/dL Albumin/Globulin Ratio (1.1-1.8) Procalcitonin (0.19-0.49) NG/ML Venous Blood Potassium 4.3 (3.6-5.2) mmol/L 08/01/17 08/01/17 08/01/17 Range/Units 22:35 21:21 19:56 WBC (4.5-11.0) 10^3/ul RBC (3.5-6.1) 10^6/uL Hgb (12.0-16.0) g/dL Hct (36.0-48.0) % MCV (80.0-105.0) fl MCH (25.0-35.0) pg MCHC (31.0-37.0) g/dl RDW (11.5-14.5) % Plt Count (120.0-450.0) 10^3/uL MPV (7.0-11.0) fl Gran % (50.0-68.0) % Lymph % (Auto) (22.0-35.0) % [place] % (Auto) (1.0-6.0) % Eos % (Auto) (1.5-5.0) % Baso % (Auto) (0.0-3.0) % Gran # (1.4-6.5) Lymph # (1.2-3.4) [place] # (0.1-0.6) Eos # (0.0-0.7) Baso # (0.0-2.0) K/mm3 Neutrophils % (Manual) (50.0-70.0) % Lymphocytes % (Manual) (22.0-35.0) % Monocytes % (Manual) (1.0-6.0) % Platelet Evaluation (NORMAL) Hypochromasia Anisocytosis (manual) pCO2 (35-45) mm/Hg pO2 (30-55) mm/Hg HCO3 (21-28) mmol/L ABG pH (7.35-7.45) ABG Total CO2 (22-28) mmol.L ABG O2 Saturation (95-98) % ABG O2 Content (15-23) ML/dl ABG Base Excess (-2.0-3.0) mmol/L ABG Hemoglobin (11.7-17.4) g/dL ABG Carboxyhemoglobin (0.5-1.5) % POC ABG HHb (Measured) (0-5) % ABG Methemoglobin (0.0-3.0) % ABG O2 Capacity (16-24) mL/dl VBG pH (7.32-7.43) VBG pCO2 (40-60) VBG HCO3 (21-28) mmol/l VBG Total CO2 (22-28) mmol.L VBG O2 Sat (Calc) (40-65) % VBG Base Excess (0.0-2.0) mmol/L VBG Potassium (3.6-5.2) mmol/L Hgb O2 Saturation (95.0-98.0) % Glucose (65-105) mg/dl Lactate (0.7-2.1) mmol/L FiO2 % Sodium (132-148) mmol/L Potassium (3.6-5.0) mmol/L Chloride (98-107) mmol/L Carbon Dioxide (21-33) mmol/L Anion Gap (10-20) BUN (7-21) mg/dL Creatinine (0.5-1.4) mg/dL Est GFR ( Amer) Est GFR (Non-Af Amer) POC Glucose (mg/dL) 160 H 136 H 96 (65-110) mg/dL Random Glucose (70-110) mg/dL Calcium (8.4-10.5) mg/dL Phosphorus (2.5-4.5) mg/dL Magnesium (1.7-2.2) mg/dL Total Bilirubin (0.2-1.3) mg/dL AST (14-36) U/L ALT (7-56) U/L Alkaline Phosphatase (38-126) U/L Total Protein (5.8-8.3) g/dL Albumin (3.0-4.8) g/dL Globulin gm/dL Albumin/Globulin Ratio (1.1-1.8) Procalcitonin (0.19-0.49) NG/ML Venous Blood Potassium (3.6-5.2) mmol/L 08/01/17 08/01/17 08/01/17 Range/Units 18:38 13:36 08:20 WBC (4.5-11.0) 10^3/ul RBC (3.5-6.1) 10^6/uL Hgb (12.0-16.0) g/dL Hct (36.0-48.0) % MCV (80.0-105.0) fl MCH (25.0-35.0) pg MCHC (31.0-37.0) g/dl RDW (11.5-14.5) % Plt Count (120.0-450.0) 10^3/uL MPV (7.0-11.0) fl Gran % (50.0-68.0) % Lymph % (Auto) (22.0-35.0) % [place] % (Auto) (1.0-6.0) % Eos % (Auto) (1.5-5.0) % Baso % (Auto) (0.0-3.0) % Gran # (1.4-6.5) Lymph # (1.2-3.4) [place] # (0.1-0.6) Eos # (0.0-0.7) Baso # (0.0-2.0) K/mm3 Neutrophils % (Manual) (50.0-70.0) % Lymphocytes % (Manual) (22.0-35.0) % Monocytes % (Manual) (1.0-6.0) % Platelet Evaluation (NORMAL) Hypochromasia Anisocytosis (manual) pCO2 (35-45) mm/Hg pO2 (30-55) mm/Hg HCO3 (21-28) mmol/L ABG pH (7.35-7.45) ABG Total CO2 (22-28) mmol.L ABG O2 Saturation (95-98) % ABG O2 Content (15-23) ML/dl ABG Base Excess (-2.0-3.0) mmol/L ABG Hemoglobin (11.7-17.4) g/dL ABG Carboxyhemoglobin (0.5-1.5) % POC ABG HHb (Measured) (0-5) % ABG Methemoglobin (0.0-3.0) % ABG O2 Capacity (16-24) mL/dl VBG pH (7.32-7.43) VBG pCO2 (40-60) VBG HCO3 (21-28) mmol/l VBG Total CO2 (22-28) mmol.L VBG O2 Sat (Calc) (40-65) % VBG Base Excess (0.0-2.0) mmol/L VBG Potassium (3.6-5.2) mmol/L Hgb O2 Saturation (95.0-98.0) % Glucose (65-105) mg/dl Lactate (0.7-2.1) mmol/L FiO2 % Sodium 136 (132-148) mmol/L Potassium 4.1 (3.6-5.0) mmol/L Chloride 97 L (98-107) mmol/L Carbon Dioxide 27 (21-33) mmol/L Anion Gap 16 (10-20) BUN 18 (7-21) mg/dL Creatinine 0.9 (0.5-1.4) mg/dL Est GFR ( Amer) > 60 Est GFR (Non-Af Amer) > 60 POC Glucose (mg/dL) 121 H (65-110) mg/dL Random Glucose 384 H* (70-110) mg/dL Calcium 9.4 (8.4-10.5) mg/dL Phosphorus (2.5-4.5) mg/dL Magnesium (1.7-2.2) mg/dL Total Bilirubin 0.8 (0.2-1.3) mg/dL AST 26 (14-36) U/L ALT 46 (7-56) U/L Alkaline Phosphatase 124 (38-126) U/L Total Protein 6.9 (5.8-8.3) g/dL Albumin 3.8 (3.0-4.8) g/dL Globulin 3.1 gm/dL Albumin/Globulin Ratio 1.2 (1.1-1.8) Procalcitonin 0.16 L (0.19-0.49) NG/ML Venous Blood Potassium (3.6-5.2) mmol/L 08/01/17 Range/Units 08:20 WBC 17.9 H (4.5-11.0) 10^3/ul RBC 3.31 L (3.5-6.1) 10^6/uL Hgb 9.8 L (12.0-16.0) g/dL Hct 29.1 L (36.0-48.0) % MCV 87.9 (80.0-105.0) fl MCH 29.6 (25.0-35.0) pg MCHC 33.7 (31.0-37.0) g/dl RDW 12.8 (11.5-14.5) % Plt Count 179 (120.0-450.0) 10^3/uL MPV 9.0 (7.0-11.0) fl Gran % 95.8 H (50.0-68.0) % Lymph % (Auto) 3.1 L (22.0-35.0) % [place] % (Auto) 1.1 (1.0-6.0) % Eos % (Auto) 0.0 L (1.5-5.0) % Baso % (Auto) 0.0 (0.0-3.0) % Gran # 17.20 H (1.4-6.5) Lymph # 0.6 L (1.2-3.4) [place] # 0.2 (0.1-0.6) Eos # 0.0 (0.0-0.7) Baso # 0.00 (0.0-2.0) K/mm3 Neutrophils % (Manual) 95 H (50.0-70.0) % Lymphocytes % (Manual) 4 L (22.0-35.0) % Monocytes % (Manual) 1 (1.0-6.0) % Platelet Evaluation Normal (NORMAL) Hypochromasia Slight Anisocytosis (manual) Slight pCO2 (35-45) mm/Hg pO2 (30-55) mm/Hg HCO3 (21-28) mmol/L ABG pH (7.35-7.45) ABG Total CO2 (22-28) mmol.L ABG O2 Saturation (95-98) % ABG O2 Content (15-23) ML/dl ABG Base Excess (-2.0-3.0) mmol/L ABG Hemoglobin (11.7-17.4) g/dL ABG Carboxyhemoglobin (0.5-1.5) % POC ABG HHb (Measured) (0-5) % ABG Methemoglobin (0.0-3.0) % ABG O2 Capacity (16-24) mL/dl VBG pH (7.32-7.43) VBG pCO2 (40-60) VBG HCO3 (21-28) mmol/l VBG Total CO2 (22-28) mmol.L VBG O2 Sat (Calc) (40-65) % VBG Base Excess (0.0-2.0) mmol/L VBG Potassium (3.6-5.2) mmol/L Hgb O2 Saturation (95.0-98.0) % Glucose (65-105) mg/dl Lactate (0.7-2.1) mmol/L FiO2 % Sodium (132-148) mmol/L Potassium (3.6-5.0) mmol/L Chloride (98-107) mmol/L Carbon Dioxide (21-33) mmol/L Anion Gap (10-20) BUN (7-21) mg/dL Creatinine (0.5-1.4) mg/dL Est GFR ( Amer) Est GFR (Non-Af Amer) POC Glucose (mg/dL) (65-110) mg/dL Random Glucose (70-110) mg/dL Calcium (8.4-10.5) mg/dL Phosphorus (2.5-4.5) mg/dL Magnesium (1.7-2.2) mg/dL Total Bilirubin (0.2-1.3) mg/dL AST (14-36) U/L ALT (7-56) U/L Alkaline Phosphatase (38-126) U/L Total Protein (5.8-8.3) g/dL Albumin (3.0-4.8) g/dL Globulin gm/dL Albumin/Globulin Ratio (1.1-1.8) Procalcitonin (0.19-0.49) NG/ML Venous Blood Potassium (3.6-5.2) mmol/L Laboratory Results - last 24 hr 08/01/17 08/01/17 08/01/17 08:20 08:20 13:36 WBC 17.9 H RBC 3.31 L Hgb 9.8 L Hct 29.1 L MCV 87.9 MCH 29.6 MCHC 33.7 RDW 12.8 Plt Count 179 MPV 9.0 Gran % 95.8 H Lymph % (Auto) 3.1 L [place] % (Auto) 1.1 Eos % (Auto) 0.0 L Baso % (Auto) 0.0 Gran # 17.20 H Lymph # 0.6 L [place] # 0.2 Eos # 0.0 Baso # 0.00 Neutrophils % (Manual) 95 H Lymphocytes % (Manual) 4 L Monocytes % (Manual) 1 Platelet Evaluation Normal Hypochromasia Slight Anisocytosis (manual) Slight pCO2 pO2 HCO3 ABG pH ABG Total CO2 ABG O2 Saturation ABG O2 Content ABG Base Excess ABG Hemoglobin ABG Carboxyhemoglobin POC ABG HHb (Measured) ABG Methemoglobin ABG O2 Capacity VBG pH VBG pCO2 VBG HCO3 VBG Total CO2 VBG O2 Sat (Calc) VBG Base Excess VBG Potassium Hgb O2 Saturation Glucose Lactate FiO2 Sodium 136 Potassium 4.1 Chloride 97 L Carbon Dioxide 27 Anion Gap 16 BUN 18 Creatinine 0.9 Est GFR ( Amer) > 60 Est GFR (Non-Af Amer) > 60 POC Glucose (mg/dL) Random Glucose 384 H* Calcium 9.4 Phosphorus Magnesium Total Bilirubin 0.8 AST 26 ALT 46 Alkaline Phosphatase 124 Total Protein 6.9 Albumin 3.8 Globulin 3.1 Albumin/Globulin Ratio 1.2 Procalcitonin 0.16 L Venous Blood Potassium 08/01/17 08/01/17 08/01/17 18:38 19:56 21:21 WBC RBC Hgb Hct MCV MCH MCHC RDW Plt Count MPV Gran % Lymph % (Auto) [place] % (Auto) Eos % (Auto) Baso % (Auto) Gran # Lymph # [place] # Eos # Baso # Neutrophils % (Manual) Lymphocytes % (Manual) Monocytes % (Manual) Platelet Evaluation Hypochromasia Anisocytosis (manual) pCO2 pO2 HCO3 ABG pH ABG Total CO2 ABG O2 Saturation ABG O2 Content ABG Base Excess ABG Hemoglobin ABG Carboxyhemoglobin POC ABG HHb (Measured) ABG Methemoglobin ABG O2 Capacity VBG pH VBG pCO2 VBG HCO3 VBG Total CO2 VBG O2 Sat (Calc) VBG Base Excess VBG Potassium Hgb O2 Saturation Glucose Lactate FiO2 Sodium Potassium Chloride Carbon Dioxide Anion Gap BUN Creatinine Est GFR ( Amer) Est GFR (Non-Af Amer) POC Glucose (mg/dL) 121 H 96 136 H Random Glucose Calcium Phosphorus Magnesium Total Bilirubin AST ALT Alkaline Phosphatase Total Protein Albumin Globulin Albumin/Globulin Ratio Procalcitonin Venous Blood Potassium 08/01/17 08/01/17 08/01/17 22:35 23:04 23:04 WBC RBC Hgb Hct MCV MCH MCHC RDW Plt Count MPV Gran % Lymph % (Auto) [place] % (Auto) Eos % (Auto) Baso % (Auto) Gran # Lymph # [place] # Eos # Baso # Neutrophils % (Manual) Lymphocytes % (Manual) Monocytes % (Manual) Platelet Evaluation Hypochromasia Anisocytosis (manual) pCO2 pO2 36 HCO3 ABG pH ABG Total CO2 ABG O2 Saturation ABG O2 Content ABG Base Excess ABG Hemoglobin ABG Carboxyhemoglobin POC ABG HHb (Measured) ABG Methemoglobin ABG O2 Capacity VBG pH 7.42 VBG pCO2 50.0 VBG HCO3 32.4 H VBG Total CO2 33.9 H VBG O2 Sat (Calc) 76.3 H VBG Base Excess 6.6 H VBG Potassium 4.3 Hgb O2 Saturation Glucose 153 H Lactate 2.0 FiO2 21.0 Sodium 142.0 142 Potassium 4.1 Chloride 108.0 H 103 Carbon Dioxide 30 Anion Gap 13 BUN 21 Creatinine 0.9 Est GFR ( Amer) > 60 Est GFR (Non-Af Amer) > 60 POC Glucose (mg/dL) 160 H Random Glucose 145 H Calcium 9.4 Phosphorus Magnesium Total Bilirubin AST ALT Alkaline Phosphatase Total Protein Albumin Globulin Albumin/Globulin Ratio Procalcitonin Venous Blood Potassium 4.3 08/01/17 08/02/17 08/02/17 23:16 00:31 01:46 WBC RBC Hgb Hct MCV MCH MCHC RDW Plt Count MPV Gran % Lymph % (Auto) [place] % (Auto) Eos % (Auto) Baso % (Auto) Gran # Lymph # [place] # Eos # Baso # Neutrophils % (Manual) Lymphocytes % (Manual) Monocytes % (Manual) Platelet Evaluation Hypochromasia Anisocytosis (manual) pCO2 pO2 HCO3 ABG pH ABG Total CO2 ABG O2 Saturation ABG O2 Content ABG Base Excess ABG Hemoglobin ABG Carboxyhemoglobin POC ABG HHb (Measured) ABG Methemoglobin ABG O2 Capacity VBG pH VBG pCO2 VBG HCO3 VBG Total CO2 VBG O2 Sat (Calc) VBG Base Excess VBG Potassium Hgb O2 Saturation Glucose Lactate FiO2 Sodium Potassium Chloride Carbon Dioxide Anion Gap BUN Creatinine Est GFR ( Amer) Est GFR (Non-Af Amer) POC Glucose (mg/dL) 166 H 152 H 130 H Random Glucose Calcium Phosphorus Magnesium Total Bilirubin AST ALT Alkaline Phosphatase Total Protein Albumin Globulin Albumin/Globulin Ratio Procalcitonin Venous Blood Potassium 08/02/17 08/02/17 08/02/17 02:26 02:35 03:11 WBC RBC Hgb Hct MCV MCH MCHC RDW Plt Count MPV Gran % Lymph % (Auto) [place] % (Auto) Eos % (Auto) Baso % (Auto) Gran # Lymph # [place] # Eos # Baso # Neutrophils % (Manual) Lymphocytes % (Manual) Monocytes % (Manual) Platelet Evaluation Hypochromasia Anisocytosis (manual) pCO2 pO2 31 HCO3 ABG pH ABG Total CO2 ABG O2 Saturation ABG O2 Content ABG Base Excess ABG Hemoglobin ABG Carboxyhemoglobin POC ABG HHb (Measured) ABG Methemoglobin ABG O2 Capacity VBG pH 7.38 VBG pCO2 52.0 VBG HCO3 30.8 H VBG Total CO2 32.4 H VBG O2 Sat (Calc) 62.2 VBG Base Excess 4.4 H VBG Potassium 3.6 Hgb O2 Saturation Glucose 107 H Lactate 1.8 FiO2 21.0 Sodium 145.0 Potassium Chloride 112.0 H Carbon Dioxide Anion Gap BUN Creatinine Est GFR ( Amer) Est GFR (Non-Af Amer) POC Glucose (mg/dL) 104 136 H Random Glucose Calcium Phosphorus Magnesium Total Bilirubin AST ALT Alkaline Phosphatase Total Protein Albumin Globulin Albumin/Globulin Ratio Procalcitonin Venous Blood Potassium 3.6 08/02/17 08/02/17 08/02/17 04:30 04:30 04:42 WBC 18.0 H RBC 3.27 L Hgb 9.6 L Hct 29.9 L MCV 91.4 D MCH 29.4 MCHC 32.1 RDW 13.3 Plt Count 223 MPV 9.6 Gran % 93.9 H Lymph % (Auto) 4.3 L [place] % (Auto) 1.8 Eos % (Auto) 0.0 L Baso % (Auto) 0.0 Gran # 16.90 H Lymph # 0.8 L [place] # 0.3 Eos # 0.0 Baso # 0.00 Neutrophils % (Manual) Lymphocytes % (Manual) Monocytes % (Manual) Platelet Evaluation Hypochromasia Anisocytosis (manual) pCO2 pO2 HCO3 ABG pH ABG Total CO2 ABG O2 Saturation ABG O2 Content ABG Base Excess ABG Hemoglobin ABG Carboxyhemoglobin POC ABG HHb (Measured) ABG Methemoglobin ABG O2 Capacity VBG pH VBG pCO2 VBG HCO3 VBG Total CO2 VBG O2 Sat (Calc) VBG Base Excess VBG Potassium Hgb O2 Saturation Glucose Lactate FiO2 Sodium 149 H Potassium 3.7 Chloride 107 Carbon Dioxide 30 Anion Gap 16 BUN 24 H Creatinine 1.0 Est GFR ( Amer) > 60 Est GFR (Non-Af Amer) 56 POC Glucose (mg/dL) 158 H Random Glucose 96 Calcium 9.8 Phosphorus 3.2 Magnesium 1.9 Total Bilirubin 0.6 AST 25 ALT 35 Alkaline Phosphatase 111 Total Protein 7.2 Albumin 3.7 Globulin 3.5 Albumin/Globulin Ratio 1.0 L Procalcitonin Venous Blood Potassium 08/02/17 08/02/17 08/02/17 05:30 05:47 07:49 WBC RBC Hgb Hct MCV MCH MCHC RDW Plt Count MPV Gran % Lymph % (Auto) [place] % (Auto) Eos % (Auto) Baso % (Auto) Gran # Lymph # [place] # Eos # Baso # Neutrophils % (Manual) Lymphocytes % (Manual) Monocytes % (Manual) Platelet Evaluation Hypochromasia Anisocytosis (manual) pCO2 38 pO2 72.0 L HCO3 26.4 ABG pH 7.45 ABG Total CO2 27.6 ABG O2 Saturation 98.0 ABG O2 Content 11.9 L ABG Base Excess 2.3 ABG Hemoglobin 8.9 L ABG Carboxyhemoglobin 2.5 H POC ABG HHb (Measured) 1.9 ABG Methemoglobin 1.2 ABG O2 Capacity 12.1 L VBG pH VBG pCO2 VBG HCO3 VBG Total CO2 VBG O2 Sat (Calc) VBG Base Excess VBG Potassium Hgb O2 Saturation 94.5 L Glucose Lactate FiO2 40.0 Sodium Potassium Chloride Carbon Dioxide Anion Gap BUN Creatinine Est GFR ( Amer) Est GFR (Non-Af Amer) POC Glucose (mg/dL) 147 H 159 H Random Glucose Calcium Phosphorus Magnesium Total Bilirubin AST ALT Alkaline Phosphatase Total Protein Albumin Globulin Albumin/Globulin Ratio Procalcitonin Venous Blood Potassium 08/02/17 08/02/17 08/02/17 10:01 10:57 13:00 WBC RBC Hgb Hct MCV MCH MCHC RDW Plt Count MPV Gran % Lymph % (Auto) [place] % (Auto) Eos % (Auto) Baso % (Auto) Gran # Lymph # [place] # Eos # Baso # Neutrophils % (Manual) Lymphocytes % (Manual) Monocytes % (Manual) Platelet Evaluation Hypochromasia Anisocytosis (manual) pCO2 pO2 HCO3 ABG pH ABG Total CO2 ABG O2 Saturation ABG O2 Content ABG Base Excess ABG Hemoglobin ABG Carboxyhemoglobin POC ABG HHb (Measured) ABG Methemoglobin ABG O2 Capacity VBG pH VBG pCO2 VBG HCO3 VBG Total CO2 VBG O2 Sat (Calc) VBG Base Excess VBG Potassium Hgb O2 Saturation Glucose Lactate FiO2 Sodium Potassium Chloride Carbon Dioxide Anion Gap BUN Creatinine Est GFR ( Amer) Est GFR (Non-Af Amer) POC Glucose (mg/dL) 167 H 120 H 110 Random Glucose Calcium Phosphorus Magnesium Total Bilirubin AST ALT Alkaline Phosphatase Total Protein Albumin Globulin Albumin/Globulin Ratio Procalcitonin Venous Blood Potassium 08/02/17 15:21 WBC RBC Hgb Hct MCV MCH MCHC RDW Plt Count MPV Gran % Lymph % (Auto) [place] % (Auto) Eos % (Auto) Baso % (Auto) Gran # Lymph # [place] # Eos # Baso # Neutrophils % (Manual) Lymphocytes % (Manual) Monocytes % (Manual) Platelet Evaluation Hypochromasia Anisocytosis (manual) pCO2 pO2 HCO3 ABG pH ABG Total CO2 ABG O2 Saturation ABG O2 Content ABG Base Excess ABG Hemoglobin ABG Carboxyhemoglobin POC ABG HHb (Measured) ABG Methemoglobin ABG O2 Capacity VBG pH VBG pCO2 VBG HCO3 VBG Total CO2 VBG O2 Sat (Calc) VBG Base Excess VBG Potassium Hgb O2 Saturation Glucose Lactate FiO2 Sodium Potassium Chloride Carbon Dioxide Anion Gap BUN Creatinine Est GFR ( Amer) Est GFR (Non-Af Amer) POC Glucose (mg/dL) 134 H Random Glucose Calcium Phosphorus Magnesium Total Bilirubin AST ALT Alkaline Phosphatase Total Protein Albumin Globulin Albumin/Globulin Ratio Procalcitonin Venous Blood Potassium Critical Care Progress Note - Nutrition Nutrition: Nutrition Category Date Time Status NPO Diet [DIET] Diets 08/01/17 Lunch Ordered Attending/Attestation - Attestation I have personally seen and examined this patient.: Yes I have fully participated in the care of the patient.: Yes I have reviewed all pertinent clinical information: Yes Notes (Text): 08/02/17 16:23 67 y/o F s/p R tumor evacuation post hemmoragic conversion. Intubated for airway protection and was given Decadron and 3% NS. Seen waving her R arm and following some simple comands. The patient 's family is at bedside and we had a long conversation about end of life care. I explained the Path results, prognosis etc. The family including the understood the information and agreed to make his DNR/DNI. New + blood cx Gram + cocci. 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 Continued on Vancomycin . BY control SBp 140's. Poor prognosis w. Metastatic Uterine ca. Will need oncology consult as well. cc time 65 min
[2017-08-02] MEDS: Vancomycin 1gm in NS 250ml 1 GM/250 ML BAG IVPB SCH (13:17)
--- NOTE | 2017-08-02 13:47 | CP.PCM.PN ---
<Everett Alva - Last Filed: 08/02/17 13:44> Subjective - Date & Time of Evaluation Date of Evaluation: 08/02/17 Time of Evaluation: 11:00 - Subjective Subjective: Patient has been seen and examined. Currently intubated and sedated. Is responsive to verbal and tactile stimulation. Objective - Vital Signs/Intake and Output Vital Signs (last 24 hours): Temp Pulse Resp BP Pulse Ox 99.7 F H 80 18 151/71 H 100 08/01/17 22:00 08/02/17 06:00 08/01/17 22:00 08/01/17 22:00 08/01/17 22:00 Intake and Output: 08/02/17 08/02/17 06:59 18:59 Intake Total 1916 48.3 Output Total 1950 Balance -34 48.3 - Medications Medications: Current Medications Dexamethasone (Decadron Inj) 10 mg IVP Q6 [facility] Last Admin: 08/02/17 05:04 Dose: 10 mg Acetaminophen (Ofirmev) 1,000 mg in 100 mls @ 400 mls/hr IVPB Q6H PRN PRN Reason: T>99.8 Stop: 08/03/17 08:06 Levetiracetam (Keppra 500mg Ivpb) 500 mg in 100 mls @ 460 mls/hr IVPB Q12 [facility] Last Admin: 08/02/17 09:36 Dose: 460 mls/hr Insulin Human Regular 100 (units/ Sodium Chloride) 100 mls @ 5 mls/hr IV .Q20H PRN; Protocol; 5 UNITS/HR PRN Reason: TITRATE PER MD ORDER Last Titration: 08/02/17 13:11 Dose: 3 units/hr, 3 mls/hr Propofol (Diprivan) 1,000 mg in 100 mls @ 3.239 mls/hr IV .Q24H PRN; Protocol; 5 MCG/KG/MIN PRN Reason: Agitation Last Titration: 08/02/17 02:32 Dose: 1.5 mcg/kg/min, 0.972 mls/hr Sodium Chloride (Hypertonic Saline 3%) 500 mls @ 50 mls/hr IV .Q10H [facility] Last Admin: 08/02/17 05:12 Dose: 50 mls/hr Vancomycin HCl (Vancomycin 1gm) 1 gm in 250 mls @ 167 mls/hr IVPB Q12H [facility] PRN Reason: Protocol Last Admin: 08/02/17 13:17 Dose: 167 mls/hr Insulin Human Regular (Humulin R Med) 0 units SC Q4H [facility] PRN Reason: Protocol Last Admin: 08/01/17 09:33 Dose: 8 units Nystatin/Triamcinolone Acetonide (Nystatin/Triamcinolone Cream) 1 ea TOP BID PRN PRN Reason: Excoriation Pantoprazole Sodium (Protonix Inj) 40 mg IVP DAILY [facility] Last Admin: 08/02/17 09:36 Dose: 40 mg - Labs Labs: 08/02/17 04:30 08/02/17 04:30 PT 10.5 Seconds (9.9-11.8) 08/01/17 08:20 INR 0.97 (0.93-1.08) 08/01/17 08:20 APTT 27.3 Seconds (23.7-30.8) 08/01/17 08:20 - Constitutional Appears: Other (Intubated and Sedated. ) - Head Exam Additional comments: surgical wound in right parietal region. - Eye Exam Eye Exam: Normal appearance - Respiratory Exam Respiratory Exam: Clear to Ausculation Bilateral. absent: Rales, Rhonchi - Cardiovascular Exam Cardiovascular Exam: +S1, +S2. absent: Murmur - GI/Abdominal Exam GI & Abdominal Exam: Soft, Hypoactive Bowel Sounds. absent: Tenderness - Extremities Exam Extremities Exam: Normal Capillary Refill. absent: Pedal Edema - Neurological Exam Neurological Exam: absent: Alert, Awake, Oriented x3 - Skin Skin Exam: Intact, Normal Color, Warm Assessment and Plan - Assessment and Plan (Free Text) Assessment: This is a 67 yo F with PMH of Uterine Ca (s/p chemo/rads, total hysterectomy, and b/l salpingo-oophrectomy), DM2, HTN, HLD, and disc disease who [place] [facility] with nausea, emesis, headache, and increasingly obtunded state. 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 She was intubated for airway protection. Plan: Hemorrhagic CVA with midline Shift - CT head notable for new onset large elliptical-shaped hemorrhage in right frontoparietal lobe with surrounding edema and mass effect. Brain MRI notable for interval appearance of foci of acute hemorrhage at the right posterior frontal/parietal lobe (consistent with hemorrhage seen on CT), and moderate to large edema surrounding the foci of hemorrhage resulting in mass effect on the lateral ventricle and approximately 14 millimeter [id number] midline shift. -Admission CXR shows ETT and NGT placmement. Reads Mild babasillar atelectasis with what appears to represent small left and possibly tiny right effusion. -Consulted Neurology and Neurosurgery. -Neurosurgery says no acute indication for surgery at this time. Cont. with supportive care. -PT/OT SIRS Patient meets SIRS criteria with Tachycardia, leukocytosis, and fever Cultures are positive for gram positive Cocci. Started on Vanc. ID (Go) consulted. Admitted to ICU Started on Fluids and Insulin per ICU Patient Afebrile by 19:03 WALLER Cultures, UDS, Tylenol PRN, Cartoid US showed B/L 20-39% proximal ICA stenosis and anterograde flow in both cerebral arteries. We will follow up with Neurology and Neurosurgery recs. Will hold patients home medications until she is extubated. Patient seen and examined with Attending Everett Alva PGY1 <Davon DIETRICH,[facility] - Last Filed: 08/02/17 15:31> Objective - Vital Signs/Intake and Output Vital Signs (last 24 hours): Temp Pulse Resp BP Pulse Ox 99.7 F H 86 18 151/71 H 100 08/01/17 22:00 08/02/17 14:00 08/01/17 22:00 08/01/17 22:00 08/01/17 22:00 Intake and Output: 08/02/17 08/02/17 06:59 18:59 Intake Total 1916 48.3 Output Total 1950 Balance -34 48.3 - Medications Medications: Current Medications Dexamethasone (Decadron Inj) 10 mg IVP Q6 [facility] Last Admin: 08/02/17 14:35 Dose: 10 mg Acetaminophen (Ofirmev) 1,000 mg in 100 mls @ 400 mls/hr IVPB Q6H PRN PRN Reason: T>99.8 Stop: 08/03/17 08:06 Levetiracetam (Keppra 500mg Ivpb) 500 mg in 100 mls @ 460 mls/hr IVPB Q12 [facility] Last Admin: 08/02/17 09:36 Dose: 460 mls/hr Insulin Human Regular 100 (units/ Sodium Chloride) 100 mls @ 5 mls/hr IV .Q20H PRN; Protocol; 5 UNITS/HR PRN Reason: TITRATE PER MD ORDER Last Titration: 08/02/17 13:11 Dose: 3 units/hr, 3 mls/hr Propofol (Diprivan) 1,000 mg in 100 mls @ 3.239 mls/hr IV .Q24H PRN; Protocol; 5 MCG/KG/MIN PRN Reason: Agitation Last Titration: 08/02/17 02:32 Dose: 1.5 mcg/kg/min, 0.972 mls/hr Sodium Chloride (Hypertonic Saline 3%) 500 mls @ 50 mls/hr IV .Q10H [facility] Last Admin: 08/02/17 05:12 Dose: 50 mls/hr Vancomycin HCl (Vancomycin 1gm) 1 gm in 250 mls @ 167 mls/hr IVPB Q12H [facility] PRN Reason: Protocol Last Admin: 08/02/17 13:17 Dose: 167 mls/hr Aztreonam (Azactam 1 Gm) 100 mls @ 100 mls/hr IVPB Q8 [facility] PRN Reason: Protocol Insulin Human Regular (Humulin R Med) 0 units SC Q4H [facility] PRN Reason: Protocol Last Admin: 08/01/17 09:33 Dose: 8 units Nystatin/Triamcinolone Acetonide (Nystatin/Triamcinolone Cream) 1 ea TOP BID PRN PRN Reason: Excoriation Pantoprazole Sodium (Protonix Inj) 40 mg IVP DAILY [facility] Last Admin: 08/02/17 09:36 Dose: 40 mg - Labs Labs: 08/02/17 04:30 08/02/17 04:30 PT 10.5 Seconds (9.9-11.8) 08/01/17 08:20 INR 0.97 (0.93-1.08) 08/01/17 08:20 APTT 27.3 Seconds (23.7-30.8) 08/01/17 08:20 Attending/Attestation - Attestation I have personally seen and examined this patient.: Yes I have fully participated in the care of the patient.: Yes I have reviewed all pertinent clinical information, including history, physical exam and plan: Yes Notes (Text): 08/02/17 15:22 Patient was seen and examined with medical detail representative. 67 yo F with PMH of Uterine Ca (s/p chemo/rads, total hysterectomy, and b/l salpingo-oophrectomy), DM2, HTN, HLD, and disc disease, underwent surgery for right Parietal mass causing left hemipegia last week and was discharged yesterday to rehab for rehabilitation, her power was improving at the time of discharge .She was admitted with change of mental status yesterday morning , was intubated, she was found to have hemorrhagic CVA at the site of prior surgery with significant midline shift, patient was evaluated by Neuro surgery, no plan for intervention.Neurology evaluation is appreciated.Patient mental status is still poor.Patient pathology report showed metastatic uterine cancer. Patient case was discussed with ICU attending. Management plan was discussed with patient and family over the phone. Prognosis is guarded.
--- NOTE | 2017-08-02 14:31 | CP.PCM.CON ---
History of Present Illness - History of Present Illness History of Present Illness: SURGERY CONSULT NOTE FOR DR. KELLEY 67F with history of endometrial cancer w/ metastatic disease presents to [facility] with AMS. Pt has had chemotherapy for 2 years but no chemotherapy in last 3 months. Family states oncologist told them she would not need chemotherapy anymore. Blood cultures positive for Gram positive cocci and therefore surgery was consulted for portacath removal and possible replacement. PMH: Uterine CA (s/p total abdominal hysterectomy w/ B/L salpingo-oophrectomy, radiation and chemotherapy), HTN, DM2, HLD, and ?herniated discs PSH: FITO w/ B/L salpingo-oophrectomy (3yrs ago), cholecystectomy, craniotomy w/ excisional biopsy (07/20/17-) Allergies: PCN (rash) SHx: denied tobacco/etoh/drug use FHx: Mom (breast CA) PMD: Dr. Edna Russell ([facility]) Onc: Dr. Sharon Gaona ([facility]) Past Patient History - Infectious Disease Hx of Infectious Diseases: None - Past Medical History & Family History Past Medical History?: Yes - Past Social History Smoking Status: Never Smoked - CARDIAC Hx Cardiac Disorders: Yes Hx Hypertension: Yes - PULMONARY Hx Respiratory Disorders: No Hx Asthma: No (didn't mention) - NEUROLOGICAL Hx Neurological Disorder: No Hx Seizures: No Hx Syncope: No - HEENT Hx HEENT Problems: Yes Hx Cataracts: Yes - RENAL Hx Chronic Kidney Disease: No - ENDOCRINE/METABOLIC Hx Diabetes Mellitus Type 2: Yes - HEMATOLOGICAL/ONCOLOGICAL Hx Blood Disorders: Yes Hx Cancer: Yes (uterine ) Hx Chemotherapy: Yes Other/Comment: Uterus cancer- last cheml in february 2017 - INTEGUMENTARY Hx Dermatological Problems: No - MUSCULOSKELETAL/RHEUMATOLOGICAL Hx Musculoskeletal Disorders: Yes Hx Falls: Yes - GASTROINTESTINAL Hx Gastrointestinal Disorders: No - GENITOURINARY/GYNECOLOGICAL Hx Genitourinary Disorders: No - PSYCHIATRIC Hx Psychophysiologic Disorder: No Hx Substance Use: No - SURGICAL HISTORY Hx Cholecystectomy: Yes Hx Hysterectomy: Yes - ANESTHESIA Hx Anesthesia: Yes Hx Anesthesia Reactions: No Hx Malignant Hyperthermia: No Meds Allergies/Adverse Reactions: Allergies Allergy/AdvReac Type Severity Reaction Status Date / Time Penicillins Allergy ANGIOEDEMA Verified 07/19/17 18:41 - Medications Medications: Current Medications Dexamethasone (Decadron Inj) 10 mg IVP Q6 [facility] Last Admin: 08/02/17 05:04 Dose: 10 mg Acetaminophen (Ofirmev) 1,000 mg in 100 mls @ 400 mls/hr IVPB Q6H PRN PRN Reason: T>99.8 Stop: 08/03/17 08:06 Levetiracetam (Keppra 500mg Ivpb) 500 mg in 100 mls @ 460 mls/hr IVPB Q12 [facility] Last Admin: 08/02/17 09:36 Dose: 460 mls/hr Insulin Human Regular 100 (units/ Sodium Chloride) 100 mls @ 5 mls/hr IV .Q20H PRN; Protocol; 5 UNITS/HR PRN Reason: TITRATE PER MD ORDER Last Titration: 08/02/17 13:11 Dose: 3 units/hr, 3 mls/hr Propofol (Diprivan) 1,000 mg in 100 mls @ 3.239 mls/hr IV .Q24H PRN; Protocol; 5 MCG/KG/MIN PRN Reason: Agitation Last Titration: 08/02/17 02:32 Dose: 1.5 mcg/kg/min, 0.972 mls/hr Sodium Chloride (Hypertonic Saline 3%) 500 mls @ 50 mls/hr IV .Q10H [facility] Last Admin: 08/02/17 05:12 Dose: 50 mls/hr Vancomycin HCl (Vancomycin 1gm) 1 gm in 250 mls @ 167 mls/hr IVPB Q12H [facility] PRN Reason: Protocol Last Admin: 08/02/17 13:17 Dose: 167 mls/hr Insulin Human Regular (Humulin R Med) 0 units SC Q4H [facility] PRN Reason: Protocol Last Admin: 08/01/17 09:33 Dose: 8 units Nystatin/Triamcinolone Acetonide (Nystatin/Triamcinolone Cream) 1 ea TOP BID PRN PRN Reason: Excoriation Pantoprazole Sodium (Protonix Inj) 40 mg IVP DAILY [facility] Last Admin: 08/02/17 09:36 Dose: 40 mg Physical Exam - Constitutional Additional comments: Currently sedated on propofol and intubated. - ENT Exam ENT Exam: Mucous Membranes Moist - Respiratory Exam Additional comments: Intubated on 40% oxygen, 5 PEEP - Cardiovascular Exam Cardiovascular Exam: REGULAR RHYTHM, +S1, +S2 Additional comments: Left sided portacath in place, no sign of erythema, no sign of infection - Extremities Exam Extremities exam: Negative for: pedal edema - Neurological Exam Additional comments: Sedated on propofol - Skin Skin Exam: Dry, Intact, Normal Color, Warm Results - Vital Signs Recent Vital Signs: Last Vital Signs Temp 99.7 F H 08/01/17 22:00 Pulse 90 08/02/17 10:00 Resp 18 08/01/17 22:00 BP 151/71 H 08/01/17 22:00 Pulse Ox 100 08/01/17 22:00 - Labs Result Diagrams: 08/02/17 04:30 08/02/17 04:30 Labs: Laboratory Results - last 24 hr 08/01/17 08/01/17 08/01/17 08:20 08:20 13:06 WBC 17.9 H RBC 3.31 L Hgb 9.8 L Hct 29.1 L MCV 87.9 MCH 29.6 MCHC 33.7 RDW 12.8 Plt Count 179 MPV 9.0 Gran % 95.8 H Lymph % (Auto) 3.1 L [place] % (Auto) 1.1 Eos % (Auto) 0.0 L Baso % (Auto) 0.0 Gran # 17.20 H Lymph # 0.6 L [place] # 0.2 Eos # 0.0 Baso # 0.00 Neutrophils % (Manual) 95 H Lymphocytes % (Manual) 4 L Monocytes % (Manual) 1 Platelet Evaluation Normal Hypochromasia Slight Anisocytosis (manual) Slight pCO2 pO2 HCO3 ABG pH ABG Total CO2 ABG O2 Saturation ABG O2 Content ABG Base Excess ABG Hemoglobin ABG Carboxyhemoglobin POC ABG HHb (Measured) ABG Methemoglobin ABG O2 Capacity VBG pH VBG pCO2 VBG HCO3 VBG Total CO2 VBG O2 Sat (Calc) VBG Base Excess VBG Potassium Hgb O2 Saturation Glucose Lactate FiO2 Sodium 136 Potassium 4.1 Chloride 97 L Carbon Dioxide 27 Anion Gap 16 BUN 18 Creatinine 0.9 Est GFR ( Amer) > 60 Est GFR (Non-Af Amer) > 60 POC Glucose (mg/dL) 315 H Random Glucose 384 H* Calcium 9.4 Phosphorus Magnesium Total Bilirubin 0.8 AST 26 ALT 46 Alkaline Phosphatase 124 Total Protein 6.9 Albumin 3.8 Globulin 3.1 Albumin/Globulin Ratio 1.2 Procalcitonin Venous Blood Potassium 08/01/17 08/01/17 08/01/17 13:36 13:59 14:00 WBC RBC Hgb Hct MCV MCH MCHC RDW Plt Count MPV Gran % Lymph % (Auto) [place] % (Auto) Eos % (Auto) Baso % (Auto) Gran # Lymph # [place] # Eos # Baso # Neutrophils % (Manual) Lymphocytes % (Manual) Monocytes % (Manual) Platelet Evaluation Hypochromasia Anisocytosis (manual) pCO2 pO2 56 H HCO3 ABG pH ABG Total CO2 ABG O2 Saturation ABG O2 Content ABG Base Excess ABG Hemoglobin ABG Carboxyhemoglobin POC ABG HHb (Measured) ABG Methemoglobin ABG O2 Capacity VBG pH 7.38 VBG pCO2 47.0 VBG HCO3 27.8 VBG Total CO2 29.2 H VBG O2 Sat (Calc) 93.4 H VBG Base Excess 2.0 VBG Potassium 3.4 L Hgb O2 Saturation Glucose 208 H Lactate 4.7 H* FiO2 21.0 Sodium 140.0 Potassium Chloride 105.0 Carbon Dioxide Anion Gap BUN Creatinine Est GFR ( Amer) Est GFR (Non-Af Amer) POC Glucose (mg/dL) 268 H Random Glucose Calcium Phosphorus Magnesium Total Bilirubin AST ALT Alkaline Phosphatase Total Protein Albumin Globulin Albumin/Globulin Ratio Procalcitonin 0.16 L Venous Blood Potassium 3.4 L 08/01/17 08/01/17 08/01/17 14:00 15:01 16:05 WBC RBC Hgb Hct MCV MCH MCHC RDW Plt Count MPV Gran % Lymph % (Auto) [place] % (Auto) Eos % (Auto) Baso % (Auto) Gran # Lymph # [place] # Eos # Baso # Neutrophils % (Manual) Lymphocytes % (Manual) Monocytes % (Manual) Platelet Evaluation Hypochromasia Anisocytosis (manual) pCO2 pO2 HCO3 ABG pH ABG Total CO2 ABG O2 Saturation ABG O2 Content ABG Base Excess ABG Hemoglobin ABG Carboxyhemoglobin POC ABG HHb (Measured) ABG Methemoglobin ABG O2 Capacity VBG pH VBG pCO2 VBG HCO3 VBG Total CO2 VBG O2 Sat (Calc) VBG Base Excess VBG Potassium Hgb O2 Saturation Glucose Lactate FiO2 Sodium 142 Potassium 3.4 L Chloride 100 Carbon Dioxide 26 Anion Gap 19 BUN 17 Creatinine 0.8 Est GFR ( Amer) > 60 Est GFR (Non-Af Amer) > 60 POC Glucose (mg/dL) 202 H 165 H Random Glucose 197 H Calcium 9.5 Phosphorus Magnesium Total Bilirubin AST ALT Alkaline Phosphatase Total Protein Albumin Globulin Albumin/Globulin Ratio Procalcitonin Venous Blood Potassium 08/01/17 08/01/17 08/01/17 18:38 19:56 21:21 WBC RBC Hgb Hct MCV MCH MCHC RDW Plt Count MPV Gran % Lymph % (Auto) [place] % (Auto) Eos % (Auto) Baso % (Auto) Gran # Lymph # [place] # Eos # Baso # Neutrophils % (Manual) Lymphocytes % (Manual) Monocytes % (Manual) Platelet Evaluation Hypochromasia Anisocytosis (manual) pCO2 pO2 HCO3 ABG pH ABG Total CO2 ABG O2 Saturation ABG O2 Content ABG Base Excess ABG Hemoglobin ABG Carboxyhemoglobin POC ABG HHb (Measured) ABG Methemoglobin ABG O2 Capacity VBG pH VBG pCO2 VBG HCO3 VBG Total CO2 VBG O2 Sat (Calc) VBG Base Excess VBG Potassium Hgb O2 Saturation Glucose Lactate FiO2 Sodium Potassium Chloride Carbon Dioxide Anion Gap BUN Creatinine Est GFR ( Amer) Est GFR (Non-Af Amer) POC Glucose (mg/dL) 121 H 96 136 H Random Glucose Calcium Phosphorus Magnesium Total Bilirubin AST ALT Alkaline Phosphatase Total Protein Albumin Globulin Albumin/Globulin Ratio Procalcitonin Venous Blood Potassium 08/01/17 08/01/17 08/01/17 22:35 23:04 23:04 WBC RBC Hgb Hct MCV MCH MCHC RDW Plt Count MPV Gran % Lymph % (Auto) [place] % (Auto) Eos % (Auto) Baso % (Auto) Gran # Lymph # [place] # Eos # Baso # Neutrophils % (Manual) Lymphocytes % (Manual) Monocytes % (Manual) Platelet Evaluation Hypochromasia Anisocytosis (manual) pCO2 pO2 36 HCO3 ABG pH ABG Total CO2 ABG O2 Saturation ABG O2 Content ABG Base Excess ABG Hemoglobin ABG Carboxyhemoglobin POC ABG HHb (Measured) ABG Methemoglobin ABG O2 Capacity VBG pH 7.42 VBG pCO2 50.0 VBG HCO3 32.4 H VBG Total CO2 33.9 H VBG O2 Sat (Calc) 76.3 H VBG Base Excess 6.6 H VBG Potassium 4.3 Hgb O2 Saturation Glucose 153 H Lactate 2.0 FiO2 21.0 Sodium 142.0 142 Potassium 4.1 Chloride 108.0 H 103 Carbon Dioxide 30 Anion Gap 13 BUN 21 Creatinine 0.9 Est GFR ( Amer) > 60 Est GFR (Non-Af Amer) > 60 POC Glucose (mg/dL) 160 H Random Glucose 145 H Calcium 9.4 Phosphorus Magnesium Total Bilirubin AST ALT Alkaline Phosphatase Total Protein Albumin Globulin Albumin/Globulin Ratio Procalcitonin Venous Blood Potassium 4.3 08/01/17 08/02/17 08/02/17 23:16 00:31 01:46 WBC RBC Hgb Hct MCV MCH MCHC RDW Plt Count MPV Gran % Lymph % (Auto) [place] % (Auto) Eos % (Auto) Baso % (Auto) Gran # Lymph # [place] # Eos # Baso # Neutrophils % (Manual) Lymphocytes % (Manual) Monocytes % (Manual) Platelet Evaluation Hypochromasia Anisocytosis (manual) pCO2 pO2 HCO3 ABG pH ABG Total CO2 ABG O2 Saturation ABG O2 Content ABG Base Excess ABG Hemoglobin ABG Carboxyhemoglobin POC ABG HHb (Measured) ABG Methemoglobin ABG O2 Capacity VBG pH VBG pCO2 VBG HCO3 VBG Total CO2 VBG O2 Sat (Calc) VBG Base Excess VBG Potassium Hgb O2 Saturation Glucose Lactate FiO2 Sodium Potassium Chloride Carbon Dioxide Anion Gap BUN Creatinine Est GFR ( Amer) Est GFR (Non-Af Amer) POC Glucose (mg/dL) 166 H 152 H 130 H Random Glucose Calcium Phosphorus Magnesium Total Bilirubin AST ALT Alkaline Phosphatase Total Protein Albumin Globulin Albumin/Globulin Ratio Procalcitonin Venous Blood Potassium 08/02/17 08/02/17 08/02/17 02:26 02:35 03:11 WBC RBC Hgb Hct MCV MCH MCHC RDW Plt Count MPV Gran % Lymph % (Auto) [place] % (Auto) Eos % (Auto) Baso % (Auto) Gran # Lymph # [place] # Eos # Baso # Neutrophils % (Manual) Lymphocytes % (Manual) Monocytes % (Manual) Platelet Evaluation Hypochromasia Anisocytosis (manual) pCO2 pO2 31 HCO3 ABG pH ABG Total CO2 ABG O2 Saturation ABG O2 Content ABG Base Excess ABG Hemoglobin ABG Carboxyhemoglobin POC ABG HHb (Measured) ABG Methemoglobin ABG O2 Capacity VBG pH 7.38 VBG pCO2 52.0 VBG HCO3 30.8 H VBG Total CO2 32.4 H VBG O2 Sat (Calc) 62.2 VBG Base Excess 4.4 H VBG Potassium 3.6 Hgb O2 Saturation Glucose 107 H Lactate 1.8 FiO2 21.0 Sodium 145.0 Potassium Chloride 112.0 H Carbon Dioxide Anion Gap BUN Creatinine Est GFR ( Amer) Est GFR (Non-Af Amer) POC Glucose (mg/dL) 104 136 H Random Glucose Calcium Phosphorus Magnesium Total Bilirubin AST ALT Alkaline Phosphatase Total Protein Albumin Globulin Albumin/Globulin Ratio Procalcitonin Venous Blood Potassium 3.6 08/02/17 08/02/17 08/02/17 04:30 04:30 04:42 WBC 18.0 H RBC 3.27 L Hgb 9.6 L Hct 29.9 L MCV 91.4 D MCH 29.4 MCHC 32.1 RDW 13.3 Plt Count 223 MPV 9.6 Gran % 93.9 H Lymph % (Auto) 4.3 L [place] % (Auto) 1.8 Eos % (Auto) 0.0 L Baso % (Auto) 0.0 Gran # 16.90 H Lymph # 0.8 L [place] # 0.3 Eos # 0.0 Baso # 0.00 Neutrophils % (Manual) Lymphocytes % (Manual) Monocytes % (Manual) Platelet Evaluation Hypochromasia Anisocytosis (manual) pCO2 pO2 HCO3 ABG pH ABG Total CO2 ABG O2 Saturation ABG O2 Content ABG Base Excess ABG Hemoglobin ABG Carboxyhemoglobin POC ABG HHb (Measured) ABG Methemoglobin ABG O2 Capacity VBG pH VBG pCO2 VBG HCO3 VBG Total CO2 VBG O2 Sat (Calc) VBG Base Excess VBG Potassium Hgb O2 Saturation Glucose Lactate FiO2 Sodium 149 H Potassium 3.7 Chloride 107 Carbon Dioxide 30 Anion Gap 16 BUN 24 H Creatinine 1.0 Est GFR ( Amer) > 60 Est GFR (Non-Af Amer) 56 POC Glucose (mg/dL) 158 H Random Glucose 96 Calcium 9.8 Phosphorus 3.2 Magnesium 1.9 Total Bilirubin 0.6 AST 25 ALT 35 Alkaline Phosphatase 111 Total Protein 7.2 Albumin 3.7 Globulin 3.5 Albumin/Globulin Ratio 1.0 L Procalcitonin Venous Blood Potassium 08/02/17 08/02/17 08/02/17 05:30 05:47 07:49 WBC RBC Hgb Hct MCV MCH MCHC RDW Plt Count MPV Gran % Lymph % (Auto) [place] % (Auto) Eos % (Auto) Baso % (Auto) Gran # Lymph # [place] # Eos # Baso # Neutrophils % (Manual) Lymphocytes % (Manual) Monocytes % (Manual) Platelet Evaluation Hypochromasia Anisocytosis (manual) pCO2 38 pO2 72.0 L HCO3 26.4 ABG pH 7.45 ABG Total CO2 27.6 ABG O2 Saturation 98.0 ABG O2 Content 11.9 L ABG Base Excess 2.3 ABG Hemoglobin 8.9 L ABG Carboxyhemoglobin 2.5 H POC ABG HHb (Measured) 1.9 ABG Methemoglobin 1.2 ABG O2 Capacity 12.1 L VBG pH VBG pCO2 VBG HCO3 VBG Total CO2 VBG O2 Sat (Calc) VBG Base Excess VBG Potassium Hgb O2 Saturation 94.5 L Glucose Lactate FiO2 40.0 Sodium Potassium Chloride Carbon Dioxide Anion Gap BUN Creatinine Est GFR ( Amer) Est GFR (Non-Af Amer) POC Glucose (mg/dL) 147 H 159 H Random Glucose Calcium Phosphorus Magnesium Total Bilirubin AST ALT Alkaline Phosphatase Total Protein Albumin Globulin Albumin/Globulin Ratio Procalcitonin Venous Blood Potassium 08/02/17 08/02/17 08/02/17 10:01 10:57 13:00 WBC RBC Hgb Hct MCV MCH MCHC RDW Plt Count MPV Gran % Lymph % (Auto) [place] % (Auto) Eos % (Auto) Baso % (Auto) Gran # Lymph # [place] # Eos # Baso # Neutrophils % (Manual) Lymphocytes % (Manual) Monocytes % (Manual) Platelet Evaluation Hypochromasia Anisocytosis (manual) pCO2 pO2 HCO3 ABG pH ABG Total CO2 ABG O2 Saturation ABG O2 Content ABG Base Excess ABG Hemoglobin ABG Carboxyhemoglobin POC ABG HHb (Measured) ABG Methemoglobin ABG O2 Capacity VBG pH VBG pCO2 VBG HCO3 VBG Total CO2 VBG O2 Sat (Calc) VBG Base Excess VBG Potassium Hgb O2 Saturation Glucose Lactate FiO2 Sodium Potassium Chloride Carbon Dioxide Anion Gap BUN Creatinine Est GFR ( Amer) Est GFR (Non-Af Amer) POC Glucose (mg/dL) 167 H 120 H 110 Random Glucose Calcium Phosphorus Magnesium Total Bilirubin AST ALT Alkaline Phosphatase Total Protein Albumin Globulin Albumin/Globulin Ratio Procalcitonin Venous Blood Potassium Assessment & Plan - Assessment and Plan (Free Text) Assessment: 67F with history of endometrial cancer and metastatic disease presents with altered mental status and positive blood cultures for Gram positive cocci. Plan: Plan is to contact oncologist to determine need for further chemotherapy. Family to decide full code vs. DNR/DNI. Surgical intervention based on above. Further recs discuss with Dr. Kelley. Kirill Akers, PGY2
--- NOTE | 2017-08-02 15:11 | CP.PCM.CON ---
History of Present Illness - History of Present Illness History of Present Illness: Infectious Disease Consultation: August 02, 2017 67 yo female brought to [facility] for a CT scan. The patient had symptoms of nausea, vomiting, headaches, emesis, and increasing obtunded state. She was discharged from [facility] 07/31/2017 after admission for L-sided weakness and falls, in which she was found to have a 5.1x3.5cm cystic mass in the R parietal lobe, for which she underwent craniotomy and excisional biopsy (07/25/17). CT head was obtained and notable for new onset large elliptical-shaped hemorrhage in right frontoparietal lobe with surrounding edema and mass effect. Neurosurgery evaluated the patient and stated no surgical intervention at this time. The patient is intubated and ventilated. She is on Propofol as well. PMHx: Uterine Ca (s/p chemo/rads, total hysterectomy, and b/l salpingo-oophrectomy), DM2, HTN, HLD, and disc disease PSHx: total hysterectomy, b/l salpindo-oophorectomy, cholecystectomy Allergies: PCN Social Hx: No reported tobacco, EtOH, or illicit drug use Active Medications Dexamethasone (Decadron Inj) 10 mg IVP Q6 VANIA Last Admin: 08/02/17 14:35 Dose: 10 mg Acetaminophen (Ofirmev) 1,000 mg in 100 mls @ 400 mls/hr IVPB Q6H PRN PRN Reason: T>99.8 Stop: 08/03/17 08:06 Levetiracetam (Keppra 500mg Ivpb) 500 mg in 100 mls @ 460 mls/hr IVPB Q12 VANIA Last Admin: 08/02/17 09:36 Dose: 460 mls/hr Insulin Human Regular 100 (units/ Sodium Chloride) 100 mls @ 5 mls/hr IV .Q20H PRN; Protocol; 5 UNITS/HR PRN Reason: TITRATE PER MD ORDER Last Titration: 08/02/17 13:11 Dose: 3 units/hr, 3 mls/hr Propofol (Diprivan) 1,000 mg in 100 mls @ 3.239 mls/hr IV .Q24H PRN; Protocol; 5 MCG/KG/MIN PRN Reason: Agitation Last Titration: 08/02/17 02:32 Dose: 1.5 mcg/kg/min, 0.972 mls/hr Sodium Chloride (Hypertonic Saline 3%) 500 mls @ 50 mls/hr IV .Q10H VANIA Last Admin: 08/02/17 05:12 Dose: 50 mls/hr Vancomycin HCl (Vancomycin 1gm) 1 gm in 250 mls @ 167 mls/hr IVPB Q12H VANIA PRN Reason: Protocol Last Admin: 08/02/17 13:17 Dose: 167 mls/hr Insulin Human Regular (Humulin R Med) 0 units SC Q4H VANIA PRN Reason: Protocol Last Admin: 08/01/17 09:33 Dose: 8 units Nystatin/Triamcinolone Acetonide (Nystatin/Triamcinolone Cream) 1 ea TOP BID PRN PRN Reason: Excoriation Pantoprazole Sodium (Protonix Inj) 40 mg IVP DAILY [facility] Last Admin: 08/02/17 09:36 Dose: 40 mg Family Hx: Breast Ca in mother ROS: Unable to obtain from the patient. Past Patient History - Infectious Disease Hx of Infectious Diseases: None - Past Medical History & Family History Past Medical History?: Yes - Past Social History Smoking Status: Never Smoked - CARDIAC Hx Cardiac Disorders: Yes Hx Hypertension: Yes - PULMONARY Hx Respiratory Disorders: No Hx Asthma: No (didn't mention) - NEUROLOGICAL Hx Neurological Disorder: No Hx Seizures: No Hx Syncope: No - HEENT Hx HEENT Problems: Yes Hx Cataracts: Yes - RENAL Hx Chronic Kidney Disease: No - ENDOCRINE/METABOLIC Hx Diabetes Mellitus Type 2: Yes - HEMATOLOGICAL/ONCOLOGICAL Hx Blood Disorders: Yes Hx Cancer: Yes (uterine ) Hx Chemotherapy: Yes Other/Comment: Uterus cancer- last cheml in february 2017 - INTEGUMENTARY Hx Dermatological Problems: No - MUSCULOSKELETAL/RHEUMATOLOGICAL Hx Musculoskeletal Disorders: Yes Hx Falls: Yes - GASTROINTESTINAL Hx Gastrointestinal Disorders: No - GENITOURINARY/GYNECOLOGICAL Hx Genitourinary Disorders: No - PSYCHIATRIC Hx Psychophysiologic Disorder: No Hx Substance Use: No - SURGICAL HISTORY Hx Cholecystectomy: Yes Hx Hysterectomy: Yes - ANESTHESIA Hx Anesthesia: Yes Hx Anesthesia Reactions: No Hx Malignant Hyperthermia: No Meds Allergies/Adverse Reactions: Allergies Allergy/AdvReac Type Severity Reaction Status Date / Time Penicillins Allergy ANGIOEDEMA Verified 07/19/17 18:41 - Medications Medications: Current Medications Dexamethasone (Decadron Inj) 10 mg IVP Q6 [facility] Last Admin: 08/02/17 14:35 Dose: 10 mg Acetaminophen (Ofirmev) 1,000 mg in 100 mls @ 400 mls/hr IVPB Q6H PRN PRN Reason: T>99.8 Stop: 08/03/17 08:06 Levetiracetam (Keppra 500mg Ivpb) 500 mg in 100 mls @ 460 mls/hr IVPB Q12 [facility] Last Admin: 08/02/17 09:36 Dose: 460 mls/hr Insulin Human Regular 100 (units/ Sodium Chloride) 100 mls @ 5 mls/hr IV .Q20H PRN; Protocol; 5 UNITS/HR PRN Reason: TITRATE PER MD ORDER Last Titration: 08/02/17 13:11 Dose: 3 units/hr, 3 mls/hr Propofol (Diprivan) 1,000 mg in 100 mls @ 3.239 mls/hr IV .Q24H PRN; Protocol; 5 MCG/KG/MIN PRN Reason: Agitation Last Titration: 08/02/17 02:32 Dose: 1.5 mcg/kg/min, 0.972 mls/hr Sodium Chloride (Hypertonic Saline 3%) 500 mls @ 50 mls/hr IV .Q10H [facility] Last Admin: 08/02/17 05:12 Dose: 50 mls/hr Vancomycin HCl (Vancomycin 1gm) 1 gm in 250 mls @ 167 mls/hr IVPB Q12H [facility]ANIA PRN Reason: Protocol Last Admin: 08/02/17 13:17 Dose: 167 mls/hr Insulin Human Regular (Humulin R Med) 0 units SC Q4H VANIA PRN Reason: Protocol Last Admin: 08/01/17 09:33 Dose: 8 units Nystatin/Triamcinolone Acetonide (Nystatin/Triamcinolone Cream) 1 ea TOP BID PRN PRN Reason: Excoriation Pantoprazole Sodium (Protonix Inj) 40 mg IVP DAILY [facility] Last Admin: 08/02/17 09:36 Dose: 40 mg Physical Exam - Constitutional Appears: Chronically Ill Additional comments: Intubated, Ventilated, and Sedated - Head Exam Additional comments: recent craniotomy. - Eye Exam Pupil Exam: Irregular Additional comments: pinpoint pupils - ENT Exam Additional comments: intubated and ventilated. - Neck Exam Neck exam: Negative for: Lymphadenopathy, Thyromegaly - Respiratory Exam Respiratory Exam: Decreased Breath Sounds, Rales. absent: Rhonchi, Wheezes - Cardiovascular Exam Cardiovascular Exam: REGULAR RHYTHM, RRR, +S1, +S2 - GI/Abdominal Exam GI & Abdominal Exam: Normal Bowel Sounds, Soft. absent: Distended, Tenderness - Extremities Exam Extremities exam: Positive for: joint swelling, pedal edema - Neurological Exam Additional comments: intubated, ventilated, sedated, poorly responsive. - Psychiatric Exam Additional comments: Unable to Access due to the patient's current medical condition. - Skin Skin Exam: Dry, Intact, Normal Color Results - Vital Signs Recent Vital Signs: Last Vital Signs Temp 99.7 F H 08/01/17 22:00 Pulse 86 08/02/17 14:00 Resp 18 08/01/17 22:00 BP 151/71 H 08/01/17 22:00 Pulse Ox 100 08/01/17 22:00 - Labs Result Diagrams: 08/02/17 04:30 08/02/17 04:30 Labs: Laboratory Results - last 24 hr 08/01/17 08/01/17 08/01/17 08:20 08:20 13:36 WBC 17.9 H RBC 3.31 L Hgb 9.8 L Hct 29.1 L MCV 87.9 MCH 29.6 MCHC 33.7 RDW 12.8 Plt Count 179 MPV 9.0 Gran % 95.8 H Lymph % (Auto) 3.1 L [place] % (Auto) 1.1 Eos % (Auto) 0.0 L Baso % (Auto) 0.0 Gran # 17.20 H Lymph # 0.6 L [place] # 0.2 Eos # 0.0 Baso # 0.00 Neutrophils % (Manual) 95 H Lymphocytes % (Manual) 4 L Monocytes % (Manual) 1 Platelet Evaluation Normal Hypochromasia Slight Anisocytosis (manual) Slight pCO2 pO2 HCO3 ABG pH ABG Total CO2 ABG O2 Saturation ABG O2 Content ABG Base Excess ABG Hemoglobin ABG Carboxyhemoglobin POC ABG HHb (Measured) ABG Methemoglobin ABG O2 Capacity VBG pH VBG pCO2 VBG HCO3 VBG Total CO2 VBG O2 Sat (Calc) VBG Base Excess VBG Potassium Hgb O2 Saturation Glucose Lactate FiO2 Sodium 136 Potassium 4.1 Chloride 97 L Carbon Dioxide 27 Anion Gap 16 BUN 18 Creatinine 0.9 Est GFR ( Amer) > 60 Est GFR (Non-Af Amer) > 60 POC Glucose (mg/dL) Random Glucose 384 H* Calcium 9.4 Phosphorus Magnesium Total Bilirubin 0.8 AST 26 ALT 46 Alkaline Phosphatase 124 Total Protein 6.9 Albumin 3.8 Globulin 3.1 Albumin/Globulin Ratio 1.2 Procalcitonin 0.16 L Venous Blood Potassium 08/01/17 08/01/17 08/01/17 13:59 14:00 14:00 WBC RBC Hgb Hct MCV MCH MCHC RDW Plt Count MPV Gran % Lymph % (Auto) [place] % (Auto) Eos % (Auto) Baso % (Auto) Gran # Lymph # [place] # Eos # Baso # Neutrophils % (Manual) Lymphocytes % (Manual) Monocytes % (Manual) Platelet Evaluation Hypochromasia Anisocytosis (manual) pCO2 pO2 56 H HCO3 ABG pH ABG Total CO2 ABG O2 Saturation ABG O2 Content ABG Base Excess ABG Hemoglobin ABG Carboxyhemoglobin POC ABG HHb (Measured) ABG Methemoglobin ABG O2 Capacity VBG pH 7.38 VBG pCO2 47.0 VBG HCO3 27.8 VBG Total CO2 29.2 H VBG O2 Sat (Calc) 93.4 H VBG Base Excess 2.0 VBG Potassium 3.4 L Hgb O2 Saturation Glucose 208 H Lactate 4.7 H* FiO2 21.0 Sodium 140.0 142 Potassium 3.4 L Chloride 105.0 100 Carbon Dioxide 26 Anion Gap 19 BUN 17 Creatinine 0.8 Est GFR ( Amer) > 60 Est GFR (Non-Af Amer) > 60 POC Glucose (mg/dL) 268 H Random Glucose 197 H Calcium 9.5 Phosphorus Magnesium Total Bilirubin AST ALT Alkaline Phosphatase Total Protein Albumin Globulin Albumin/Globulin Ratio Procalcitonin Venous Blood Potassium 3.4 L 08/01/17 08/01/17 08/01/17 15:01 16:05 18:38 WBC RBC Hgb Hct MCV MCH MCHC RDW Plt Count MPV Gran % Lymph % (Auto) [place] % (Auto) Eos % (Auto) Baso % (Auto) Gran # Lymph # [place] # Eos # Baso # Neutrophils % (Manual) Lymphocytes % (Manual) Monocytes % (Manual) Platelet Evaluation Hypochromasia Anisocytosis (manual) pCO2 pO2 HCO3 ABG pH ABG Total CO2 ABG O2 Saturation ABG O2 Content ABG Base Excess ABG Hemoglobin ABG Carboxyhemoglobin POC ABG HHb (Measured) ABG Methemoglobin ABG O2 Capacity VBG pH VBG pCO2 VBG HCO3 VBG Total CO2 VBG O2 Sat (Calc) VBG Base Excess VBG Potassium Hgb O2 Saturation Glucose Lactate FiO2 Sodium Potassium Chloride Carbon Dioxide Anion Gap BUN Creatinine Est GFR ( Amer) Est GFR (Non-Af Amer) POC Glucose (mg/dL) 202 H 165 H 121 H Random Glucose Calcium Phosphorus Magnesium Total Bilirubin AST ALT Alkaline Phosphatase Total Protein Albumin Globulin Albumin/Globulin Ratio Procalcitonin Venous Blood Potassium 08/01/17 08/01/17 08/01/17 19:56 21:21 22:35 WBC RBC Hgb Hct MCV MCH MCHC RDW Plt Count MPV Gran % Lymph % (Auto) [place] % (Auto) Eos % (Auto) Baso % (Auto) Gran # Lymph # [place] # Eos # Baso # Neutrophils % (Manual) Lymphocytes % (Manual) Monocytes % (Manual) Platelet Evaluation Hypochromasia Anisocytosis (manual) pCO2 pO2 HCO3 ABG pH ABG Total CO2 ABG O2 Saturation ABG O2 Content ABG Base Excess ABG Hemoglobin ABG Carboxyhemoglobin POC ABG HHb (Measured) ABG Methemoglobin ABG O2 Capacity VBG pH VBG pCO2 VBG HCO3 VBG Total CO2 VBG O2 Sat (Calc) VBG Base Excess VBG Potassium Hgb O2 Saturation Glucose Lactate FiO2 Sodium Potassium Chloride Carbon Dioxide Anion Gap BUN Creatinine Est GFR ( Amer) Est GFR (Non-Af Amer) POC Glucose (mg/dL) 96 136 H 160 H Random Glucose Calcium Phosphorus Magnesium Total Bilirubin AST ALT Alkaline Phosphatase Total Protein Albumin Globulin Albumin/Globulin Ratio Procalcitonin Venous Blood Potassium 08/01/17 08/01/17 08/01/17 23:04 23:04 23:16 WBC RBC Hgb Hct MCV MCH MCHC RDW Plt Count MPV Gran % Lymph % (Auto) [place] % (Auto) Eos % (Auto) Baso % (Auto) Gran # Lymph # [place] # Eos # Baso # Neutrophils % (Manual) Lymphocytes % (Manual) Monocytes % (Manual) Platelet Evaluation Hypochromasia Anisocytosis (manual) pCO2 pO2 36 HCO3 ABG pH ABG Total CO2 ABG O2 Saturation ABG O2 Content ABG Base Excess ABG Hemoglobin ABG Carboxyhemoglobin POC ABG HHb (Measured) ABG Methemoglobin ABG O2 Capacity VBG pH 7.42 VBG pCO2 50.0 VBG HCO3 32.4 H VBG Total CO2 33.9 H VBG O2 Sat (Calc) 76.3 H VBG Base Excess 6.6 H VBG Potassium 4.3 Hgb O2 Saturation Glucose 153 H Lactate 2.0 FiO2 21.0 Sodium 142.0 142 Potassium 4.1 Chloride 108.0 H 103 Carbon Dioxide 30 Anion Gap 13 BUN 21 Creatinine 0.9 Est GFR ( Amer) > 60 Est GFR (Non-Af Amer) > 60 POC Glucose (mg/dL) 166 H Random Glucose 145 H Calcium 9.4 Phosphorus Magnesium Total Bilirubin AST ALT Alkaline Phosphatase Total Protein Albumin Globulin Albumin/Globulin Ratio Procalcitonin Venous Blood Potassium 4.3 08/02/17 08/02/17 08/02/17 00:31 01:46 02:26 WBC RBC Hgb Hct MCV MCH MCHC RDW Plt Count MPV Gran % Lymph % (Auto) [place] % (Auto) Eos % (Auto) Baso % (Auto) Gran # Lymph # [place] # Eos # Baso # Neutrophils % (Manual) Lymphocytes % (Manual) Monocytes % (Manual) Platelet Evaluation Hypochromasia Anisocytosis (manual) pCO2 pO2 HCO3 ABG pH ABG Total CO2 ABG O2 Saturation ABG O2 Content ABG Base Excess ABG Hemoglobin ABG Carboxyhemoglobin POC ABG HHb (Measured) ABG Methemoglobin ABG O2 Capacity VBG pH VBG pCO2 VBG HCO3 VBG Total CO2 VBG O2 Sat (Calc) VBG Base Excess VBG Potassium Hgb O2 Saturation Glucose Lactate FiO2 Sodium Potassium Chloride Carbon Dioxide Anion Gap BUN Creatinine Est GFR ( Amer) Est GFR (Non-Af Amer) POC Glucose (mg/dL) 152 H 130 H 104 Random Glucose Calcium Phosphorus Magnesium Total Bilirubin AST ALT Alkaline Phosphatase Total Protein Albumin Globulin Albumin/Globulin Ratio Procalcitonin Venous Blood Potassium 08/02/17 08/02/17 08/02/17 02:35 03:11 04:30 WBC 18.0 H RBC 3.27 L Hgb 9.6 L Hct 29.9 L MCV 91.4 D MCH 29.4 MCHC 32.1 RDW 13.3 Plt Count 223 MPV 9.6 Gran % 93.9 H Lymph % (Auto) 4.3 L [place] % (Auto) 1.8 Eos % (Auto) 0.0 L Baso % (Auto) 0.0 Gran # 16.90 H Lymph # 0.8 L [place] # 0.3 Eos # 0.0 Baso # 0.00 Neutrophils % (Manual) Lymphocytes % (Manual) Monocytes % (Manual) Platelet Evaluation Hypochromasia Anisocytosis (manual) pCO2 pO2 31 HCO3 ABG pH ABG Total CO2 ABG O2 Saturation ABG O2 Content ABG Base Excess ABG Hemoglobin ABG Carboxyhemoglobin POC ABG HHb (Measured) ABG Methemoglobin ABG O2 Capacity VBG pH 7.38 VBG pCO2 52.0 VBG HCO3 30.8 H VBG Total CO2 32.4 H VBG O2 Sat (Calc) 62.2 VBG Base Excess 4.4 H VBG Potassium 3.6 Hgb O2 Saturation Glucose 107 H Lactate 1.8 FiO2 21.0 Sodium 145.0 Potassium Chloride 112.0 H Carbon Dioxide Anion Gap BUN Creatinine Est GFR ( Amer) Est GFR (Non-Af Amer) POC Glucose (mg/dL) 136 H Random Glucose Calcium Phosphorus Magnesium Total Bilirubin AST ALT Alkaline Phosphatase Total Protein Albumin Globulin Albumin/Globulin Ratio Procalcitonin Venous Blood Potassium 3.6 08/02/17 08/02/17 08/02/17 04:30 04:42 05:30 WBC RBC Hgb Hct MCV MCH MCHC RDW Plt Count MPV Gran % Lymph % (Auto) [place] % (Auto) Eos % (Auto) Baso % (Auto) Gran # Lymph # [place] # Eos # Baso # Neutrophils % (Manual) Lymphocytes % (Manual) Monocytes % (Manual) Platelet Evaluation Hypochromasia Anisocytosis (manual) pCO2 38 pO2 72.0 L HCO3 26.4 ABG pH 7.45 ABG Total CO2 27.6 ABG O2 Saturation 98.0 ABG O2 Content 11.9 L ABG Base Excess 2.3 ABG Hemoglobin 8.9 L ABG Carboxyhemoglobin 2.5 H POC ABG HHb (Measured) 1.9 ABG Methemoglobin 1.2 ABG O2 Capacity 12.1 L VBG pH VBG pCO2 VBG HCO3 VBG Total CO2 VBG O2 Sat (Calc) VBG Base Excess VBG Potassium Hgb O2 Saturation 94.5 L Glucose Lactate FiO2 40.0 Sodium 149 H Potassium 3.7 Chloride 107 Carbon Dioxide 30 Anion Gap 16 BUN 24 H Creatinine 1.0 Est GFR ( Amer) > 60 Est GFR (Non-Af Amer) 56 POC Glucose (mg/dL) 158 H Random Glucose 96 Calcium 9.8 Phosphorus 3.2 Magnesium 1.9 Total Bilirubin 0.6 AST 25 ALT 35 Alkaline Phosphatase 111 Total Protein 7.2 Albumin 3.7 Globulin 3.5 Albumin/Globulin Ratio 1.0 L Procalcitonin Venous Blood Potassium 08/02/17 08/02/17 08/02/17 05:47 07:49 10:01 WBC RBC Hgb Hct MCV MCH MCHC RDW Plt Count MPV Gran % Lymph % (Auto) [place] % (Auto) Eos % (Auto) Baso % (Auto) Gran # Lymph # [place] # Eos # Baso # Neutrophils % (Manual) Lymphocytes % (Manual) Monocytes % (Manual) Platelet Evaluation Hypochromasia Anisocytosis (manual) pCO2 pO2 HCO3 ABG pH ABG Total CO2 ABG O2 Saturation ABG O2 Content ABG Base Excess ABG Hemoglobin ABG Carboxyhemoglobin POC ABG HHb (Measured) ABG Methemoglobin ABG O2 Capacity VBG pH VBG pCO2 VBG HCO3 VBG Total CO2 VBG O2 Sat (Calc) VBG Base Excess VBG Potassium Hgb O2 Saturation Glucose Lactate FiO2 Sodium Potassium Chloride Carbon Dioxide Anion Gap BUN Creatinine Est GFR ( Amer) Est GFR (Non-Af Amer) POC Glucose (mg/dL) 147 H 159 H 167 H Random Glucose Calcium Phosphorus Magnesium Total Bilirubin AST ALT Alkaline Phosphatase Total Protein Albumin Globulin Albumin/Globulin Ratio Procalcitonin Venous Blood Potassium 08/02/17 08/02/17 10:57 13:00 WBC RBC Hgb Hct MCV MCH MCHC RDW Plt Count MPV Gran % Lymph % (Auto) [place] % (Auto) Eos % (Auto) Baso % (Auto) Gran # Lymph # [place] # Eos # Baso # Neutrophils % (Manual) Lymphocytes % (Manual) Monocytes % (Manual) Platelet Evaluation Hypochromasia Anisocytosis (manual) pCO2 pO2 HCO3 ABG pH ABG Total CO2 ABG O2 Saturation ABG O2 Content ABG Base Excess ABG Hemoglobin ABG Carboxyhemoglobin POC ABG HHb (Measured) ABG Methemoglobin ABG O2 Capacity VBG pH VBG pCO2 VBG HCO3 VBG Total CO2 VBG O2 Sat (Calc) VBG Base Excess VBG Potassium Hgb O2 Saturation Glucose Lactate FiO2 Sodium Potassium Chloride Carbon Dioxide Anion Gap BUN Creatinine Est GFR ( Amer) Est GFR (Non-Af Amer) POC Glucose (mg/dL) 120 H 110 Random Glucose Calcium Phosphorus Magnesium Total Bilirubin AST ALT Alkaline Phosphatase Total Protein Albumin Globulin Albumin/Globulin Ratio Procalcitonin Venous Blood Potassium Assessment & Plan - Assessment and Plan (Free Text) Assessment: 67 yo female with extensive past medical history that includes Uterine Cancer with recent craniotomy 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 CT head notable for new onset large elliptical- shaped hemorrhage in right frontoparietal lobe with surrounding edema and mass effect. Brain MRI notable for interval appearance of foci of acute hemorrhage at the right posterior frontal/parietal lobe (consistent with hemorrhage seen on CT), and moderate to large edema surrounding the foci of hemorrhage resulting in mass effect on the lateral ventricle and approximately 14 millimeter [id number] midline shift. Neurosurgery feels this is malignant metastatic mass with poor prognosis, and surgery would not likely be helpful, as patient is at high risk for immediate morbidity There is leukocytosis although this is likely due to the large CVA. Blood cultures were noted to be showing gram positive cocci in clusters. The could be Staph Aureus but can be other potential skin organisms. Started on Vancomycin and Aztreonam for now. Supportive care. The patient has a dismal prognosis at this time. Thank you for allowing me to participate in the care of the panient, we will follow with you.
[2017-08-02] MEDS: Aztreonam 1 Gm in NS 100mL 100 ML IVPB SCH ×2 (16:13→21:33)
[2017-08-03] MEDS: Insulin Regular 100 UNITS in Sodium Chloride 0.9% 99 ML IV PRN ×3 (01:08→18:55)
[2017-08-03] MEDS: Propofol 10 mg/ml 1,000 MG/100 ML VIAL IV PRN (01:11)
[2017-08-03] MEDS: Sodium Chloride 3% 500 ML IV SCH ×2 (01:56→18:38)
[2017-08-03] MEDS: Aztreonam 1 Gm in NS 100mL 100 ML IVPB SCH ×2 (05:17→18:04)
[2017-08-03 05:31] LABS: ARTERIAL BLOOD GAS HCO3 23.1 mmol/L (21-28); ARTERIAL BLOOD GAS O2 CAPACITY 10.8 mL/dl (16-24); ARTERIAL BLOOD GAS O2 CONTENT 10.8 ML/dl (15-23); ARTERIAL BLOOD GAS PH 7.44 (7.35-7.45); CARBOXYHEMOGLOBIN 2.4 % (0.5-1.5); HHB -0.3 % (0-5)
--- NOTE | 2017-08-03 07:24 | RAD ---
HISTORY: [facility] vent COMPARISON: Portable chest 08/02/2017. FINDINGS: Patient is rotated towards the right. Endotracheal and nasogastric tubes do not appear significantly changed in position with left chest port again identified placed. LUNGS: No definitive infiltrate is appreciated bilaterally. Linear atelectasis is seen at the medial right base. PLEURA: No significant pleural effusion identified, no pneumothorax apparent. Elevated right hemidiaphragm again noted. CARDIOVASCULAR: Cardiomediastinal silhouette appears stable but is limited evaluation due to rotation. . OSSEOUS STRUCTURES: No significant abnormalities. VISUALIZED UPPER ABDOMEN: Normal. OTHER FINDINGS: None. IMPRESSION: No acute infiltrate or pleural effusion identified in the interval. Elevated right hemidiaphragm again evident with limited linear atelectasis identified in the medial right base.
[2017-08-03 07:25] LABS: GRAN # 13.95 (1.4-6.5); GRAN % 92.3 % (50.0-68.0); LYMPH # 0.6 (1.2-3.4); MEAN CELL VOLUME 92.5 fl (80.0-105.0); MEAN CORPUSCULAR HEMOGLOBIN 28.4 pg (25.0-35.0); MEAN CORPUSCULAR HGB CONC 30.7 g/dl (31.0-37.0); MEAN PLATELET VOLUME 9.5 fl (7.0-11.0); MONO # 0.6 (0.1-0.6); MONO % 3.7 % (1.0-6.0); RED CELL DISTRIBUTION WIDTH 13.5 % (11.5-14.5); WHITE BLOOD COUNT 15.1 10^3/ul (4.5-11.0)
[2017-08-03 07:54] LABS: ALB/GLOB RATIO 1.1 (1.1-1.8); ALKALINE PHOSPHATASE 90 U/L (38-126); ALT/SGPT 35 U/L (7-56); AST/SGOT 22 U/L (14-36); BILIRUBIN,TOTAL 0.3 mg/dL (0.2-1.3); BLOOD UREA NITROGEN 31 mg/dL (7-21); CALCIUM 9.1 mg/dL (8.4-10.5); CARBON DIOXIDE 24 mmol/L (21-33); CHLORIDE 125 mmol/L (98-107); GFR AFRICAN-AMERICAN > 60; GLUCOSE,RANDOM 98 mg/dL (70-110); MAGNESIUM 2.1 mg/dL (1.7-2.2); PHOSPHOROUS 3.4 mg/dL (2.5-4.5); POTASSIUM 3.7 mmol/L (3.6-5.0); TOTAL PROTEIN 6.4 g/dL (5.8-8.3)
[2017-08-03 08:05] LABS: SODIUM 160 mmol/L (132-148)
[2017-08-03] MEDS: levETIRAcetam 500mg IVPB 500 MG/100 ML BAG IVPB SCH (11:07)
[2017-08-03] MEDS: Vancomycin 1gm in NS 250ml 1 GM/250 ML BAG IVPB SCH ×2 (12:19)
--- NOTE | 2017-08-03 13:33 | CP.PCM.PN ---
<Everett Alva - Last Filed: 08/03/17 13:36> Subjective - Date & Time of Evaluation Date of Evaluation: 08/03/17 Time of Evaluation: 10:00 - Subjective Subjective: Patient has been seen and examined. She is currently sedated and intubated. Patient was responding to verbal and tactile stimuli around 7:40 and was moving her right upper and lower extremeties. During attending rounds (about 10:00am) , patient was less responsive. , 2 sons, and daughter in law were at bedside. Discussed with family options of DNR/DNI and that her prognosis is poor given her uterine cancer with brain metastasis. Objective - Vital Signs/Intake and Output Vital Signs (last 24 hours): Temp Pulse Resp BP Pulse Ox 99.0 F 61 18 150/57 L 99 08/03/17 13:01 08/03/17 13:01 08/01/17 22:00 08/03/17 13:01 08/03/17 13:01 Intake and Output: 08/03/17 08/03/17 06:59 18:59 Intake Total 2362.5 81.5 Output Total 1900 Balance 462.5 81.5 - Medications Medications: Current Medications Dexamethasone (Decadron Inj) 10 mg IVP Q6 [facility] Last Admin: 08/03/17 12:25 Dose: 10 mg Levetiracetam (Keppra 500mg Ivpb) 500 mg in 100 mls @ 460 mls/hr IVPB Q12 [facility] Last Admin: 08/03/17 11:07 Dose: 460 mls/hr Insulin Human Regular 100 (units/ Sodium Chloride) 100 mls @ 5 mls/hr IV .Q20H PRN; Protocol; 5 UNITS/HR PRN Reason: TITRATE PER MD ORDER Last Admin: 08/03/17 11:29 Dose: 1.5 units/hr, 1.5 mls/hr Propofol (Diprivan) 1,000 mg in 100 mls @ 3.239 mls/hr IV .Q24H PRN; Protocol; 5 MCG/KG/MIN PRN Reason: Agitation Last Admin: 08/03/17 01:11 Dose: 9.3 mcg/kg/min, 6.024 mls/hr Sodium Chloride (Hypertonic Saline 3%) 500 mls @ 50 mls/hr IV .Q10H [facility] Last Admin: 08/03/17 01:56 Dose: 50 mls/hr Vancomycin HCl (Vancomycin 1gm) 1 gm in 250 mls @ 167 mls/hr IVPB Q12H [facility] PRN Reason: Protocol Last Admin: 08/03/17 12:19 Dose: 167 mls/hr Aztreonam (Azactam 1 Gm) 100 mls @ 100 mls/hr IVPB Q8 [facility] PRN Reason: Protocol Last Admin: 08/03/17 05:17 Dose: 100 mls/hr Insulin Human Regular (Humulin R Med) 0 units SC Q4H [facility] PRN Reason: Protocol Last Admin: 08/01/17 09:33 Dose: 8 units Nystatin/Triamcinolone Acetonide (Nystatin/Triamcinolone Cream) 1 ea TOP BID PRN PRN Reason: Excoriation Pantoprazole Sodium (Protonix Inj) 40 mg IVP DAILY [facility] Last Admin: 08/03/17 11:15 Dose: 40 mg - Labs Labs: 08/03/17 06:30 08/03/17 06:30 PT 10.5 Seconds (9.9-11.8) 08/01/17 08:20 INR 0.97 (0.93-1.08) 08/01/17 08:20 APTT 27.3 Seconds (23.7-30.8) 08/01/17 08:20 - Constitutional Appears: Toxic, Chronically Ill - Head Exam Additional comments: surgical wound at right parietal region. - Eye Exam Eye Exam: Normal appearance - ENT Exam ENT Exam: Mucous Membranes Moist - Respiratory Exam Respiratory Exam: Clear to Ausculation Bilateral, NORMAL BREATHING PATTERN. absent: Rales, Rhonchi, Wheezes - Cardiovascular Exam Cardiovascular Exam: RRR, +S1, +S2 - GI/Abdominal Exam GI & Abdominal Exam: Soft. absent: Tenderness - Extremities Exam Extremities Exam: absent: Pedal Edema Additional comments: Cool upper extremities - Neurological Exam Neurological Exam: Altered. absent: Alert, Awake, Oriented x3 Assessment and Plan - Assessment and Plan (Free Text) Assessment: This is a 67 yo F with PMH of Uterine Ca (s/p chemo/rads, total hysterectomy, and b/l salpingo-oophrectomy), DM2, HTN, HLD, and disc disease who represents to [facility] with nausea, emesis, headache, and increasingly obtunded state. 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 She was intubated for airway protection. Plan: Hemorrhagic CVA with midline Shift - CT head notable for new onset large elliptical-shaped hemorrhage in right frontoparietal lobe with surrounding edema and mass effect. Brain MRI notable for interval appearance of foci of acute hemorrhage at the right posterior frontal/parietal lobe (consistent with hemorrhage seen on CT), and moderate to large edema surrounding the foci of hemorrhage resulting in mass effect on the lateral ventricle and approximately 14 millimeter [id number] midline shift. -Admission CXR shows ETT and NGT placement. Reads Mild bibasilar atelectasis with what appears to represent small left and possibly tiny right effusion. -Consulted Neurology and Neurosurgery. -Neurosurgery says no acute indication for surgery at this time. Cont. with supportive care. -ICU may attempt extubation -PT/OT -Cont. Decadron per neuro SIRS Patient meets SIRS criteria with Tachycardia, leukocytosis, and fever Started on Fluids and Insulin per ICU Patient Afebrile by 19:03 White count trending down. Blood cultures show Staphylococcus Sp Coag Neg. MRSA of nares negative. Urine cultures are pending. Cartoid US showed B/L 20-39% proximal ICA stenosis and anterograde flow in both cerebral arteries. Continue Vanc. Dispo: , 2 sons, and daughter in law were at bedside. Daughter was on speaker phone. Discussed with family options of DNR/DNI due to her poor prognosis given her uterine cancer with brain metastasis. Family will discuss and make a decision. Will F/U with oncology for any recommendations. Patient seen, discussed and reviewed with attending Everett Alva PGY-1 <Davon [facility]ETRICH,[facility] - Last Filed: 08/04/17 15:15> Objective - Vital Signs/Intake and Output Vital Signs (last 24 hours): Temp Pulse Resp BP Pulse Ox 99.1 F 72 19 139/74 97 08/04/17 14:01 08/04/17 14:01 08/04/17 14:01 08/04/17 14:01 08/04/17 14:01 Intake and Output: 08/04/17 08/04/17 06:59 18:59 Intake Total 9 73.9 Balance 9 73.9 - Medications Medications: Current Medications Levetiracetam (Keppra 500mg Ivpb) 500 mg in 100 mls @ 460 mls/hr IVPB Q12 [facility] Last Admin: 08/04/17 10:14 Dose: 460 mls/hr Insulin Human Regular 100 (units/ Sodium Chloride) 100 mls @ 5 mls/hr IV .Q20H PRN; Protocol; 5 UNITS/HR PRN Reason: TITRATE PER MD ORDER Last Titration: 08/04/17 11:32 Dose: 16 units/hr, 16 mls/hr Sodium Chloride (Hypertonic Saline 3%) 500 mls @ 50 mls/hr IV .Q10H [facility] Last Admin: 08/03/17 18:38 Dose: Not Given Vancomycin HCl (Vancomycin 1gm) 1 gm in 250 mls @ 167 mls/hr IVPB Q12H [facility] PRN Reason: Protocol Last Admin: 08/04/17 13:12 Dose: 167 mls/hr Aztreonam (Azactam 1 Gm) 100 mls @ 100 mls/hr IVPB Q8 [facility] PRN Reason: Protocol Last Admin: 08/04/17 13:00 Dose: 100 mls/hr Acetaminophen (Ofirmev) 1,000 mg in 100 mls @ 400 mls/hr IVPB Q6H PRN PRN Reason: Pain, moderate (4-7) Stop: 08/05/17 17:42 Last Admin: 08/03/17 18:07 Dose: 400 mls/hr Insulin Human Regular (Humulin R Low) 0 units SC Q6H [facility] PRN Reason: Protocol Last Admin: 08/04/17 08:14 Dose: 3 units Nystatin/Triamcinolone Acetonide (Nystatin/Triamcinolone Cream) 1 ea TOP BID PRN PRN Reason: Excoriation Pantoprazole Sodium (Protonix Inj) 40 mg IVP DAILY [facility] Last Admin: 08/04/17 10:13 Dose: 40 mg - Labs Labs: 08/04/17 05:30 08/04/17 05:30 PT 10.5 Seconds (9.9-11.8) 08/01/17 08:20 INR 0.97 (0.93-1.08) 08/01/17 08:20 APTT 27.3 Seconds (23.7-30.8) 08/01/17 08:20 Attending/Attestation - Attestation I have personally seen and examined this patient.: Yes I have fully participated in the care of the patient.: Yes I have reviewed all pertinent clinical information, including history, physical exam and plan: Yes Notes (Text): 08/04/17 15:13 Patient was seen and examined with medical device assembler. 67 yo F with PMH of Uterine Ca (s/p chemo/rads, total hysterectomy, and b/l salpingo-oophrectomy), DM2, HTN, HLD, and disc disease, underwent surgery for right Parietal mass causing left hemipegia last week and was discharged yesterday to rehab for rehabilitation, her power was improving at the time of discharge .She was admitted with change of mental status yesterday morning , was intubated, she was found to have hemorrhagic CVA at the site of prior surgery with significant midline shift, patient was evaluated by Neuro surgery, no plan for intervention.Patient pathology report showed metastatic uterine cancer.Patient is still intubated, blood pressure is in acceptable range.Hypertonic saline has been discontinued due to hypernatremia.Blood culturs are growing coagulase negative stap likely contaminated.Patient case was discussed with ICU attending, plan for possible extubation today. Management plan was discussed with patient and family over the phone. Prognosis is guarded.
--- NOTE | 2017-08-03 13:37 | CP.CCUPN ---
<NGUYEN CARREON - Last Filed: 08/03/17 13:31> CCU Subjective - Physician Review Subjective (Free Text): 08/03/17 13:52 Patient seen and assessed at bedside. Patient currently intubated on PS/CPAP mode and on sedation. No acute events overnight per nursing and chart review. ROS unobtainable due to patients clinical condition. CCU Objective - Vital Signs / Intake & Output Vital Signs (Last 4 hours): Vital Signs Temp Pulse BP Pulse Ox 08/03/17 13:01 99.0 F 61 150/57 L 99 08/03/17 13:00 99.0 F 55 L 98 08/03/17 12:02 99.0 F 86 135/67 99 08/03/17 12:00 99.0 F 82 99 08/03/17 11:07 99.0 F 64 161/67 H 96 08/03/17 11:00 99.0 F 59 L 96 08/03/17 10:00 98.8 F 57 L 94 L 08/03/17 09:58 98.8 F 60 93 L Intake and Output (Last 8hrs): Intake & Output 08/02/17 08/03/17 08/03/17 22:59 06:59 14:59 Intake Total 1100.7 1277.5 81.5 Output Total 1000 900 Balance 100.7 377.5 81.5 Weight 235 lb Intake: IV 1100.7 1277.5 81.5 Left Subclavian 1050 1250 Output: Urine 1000 900 2-way Urethral 1000 900 Other: # Bowel Movements 0 - Physical Exam Head: Positive for: Other (sahara to R hemicranium with subcu edema) Pupils: Positive for: PERRL Conjunctiva: Positive for: Normal Mouth: Positive for: Moist Mucous Membranes Neck: Positive for: Normal Range of Motion Respiratory/Chest: Positive for: Clear to Auscultation, Good Air Exchange. Negative for: Respiratory Distress, Accessory Muscle Use Cardiovascular: Positive for: Regular Rate and Rhythm, Normal S1, S2. Negative for: Murmurs Abdomen: Positive for: Normal Bowel Sounds. Negative for: Tenderness, Distention, Peritoneal Signs Upper Extremity: Positive for: Normal Inspection. Negative for: Cyanosis, Edema Lower Extremity: Positive for: Normal Inspection. Negative for: Edema Neurological: Negative for: GCS=15 Skin: Positive for: Warm, Dry, Normal Color. Negative for: Rashes - Medications Active Medications: Active Medications Generic Name Dose Route Start Last Admin Trade Name Freq PRN Reason Stop Dose Admin Dexamethasone 10 mg 08/01/17 22:01 08/03/17 12:25 Decadron Inj IVP 10 mg Q6 VANIA Administration Levetiracetam 500 mg in 100 mls @ 460 mls/hr 08/01/17 10:00 08/03/17 11:07 Keppra 500mg Ivpb IVPB 460 mls/hr Q12 VANIA Administration Insulin Human Regular 100 100 mls @ 5 mls/hr 08/01/17 09:44 08/03/17 11:29 units/ Sodium Chloride IV 1.5 units/hr .Q20H PRN 1.5 mls/hr TITRATE PER MD ORDER Administration Protocol 5 UNITS/HR Propofol 1,000 mg in 100 mls @ 3.239 mls/hr 08/01/17 09:50 08/03/17 01:11 Diprivan IV 9.3 mcg/kg/min .Q24H PRN 6.024 mls/hr Agitation Administration Protocol 5 MCG/KG/MIN Sodium Chloride 500 mls @ 50 mls/hr 08/01/17 18:45 08/03/17 01:56 Hypertonic Saline 3% IV 50 mls/hr .Q10H VANIA Administration Vancomycin HCl 1 gm in 250 mls @ 167 mls/hr 08/02/17 12:15 08/03/17 12:19 Vancomycin 1gm IVPB 167 mls/hr Q12H VANIA Administration Protocol Aztreonam 100 mls @ 100 mls/hr 08/02/17 15:15 08/03/17 05:17 Azactam 1 Gm IVPB 100 mls/hr Q8 VANIA Administration Protocol Insulin Human Regular 0 units 08/01/17 08:00 08/01/17 09:33 Humulin R Med SC 8 units Q4H VANIA Administration Protocol Nystatin/Triamcinolone Acetonide 1 ea 08/01/17 20:55 Nystatin/Triamcinolone Cream TOP BID PRN Excoriation Pantoprazole Sodium 40 mg 08/01/17 10:00 08/03/17 11:15 Protonix Inj IVP 40 mg DAILY VANIA Administration - Patient Studies Lab Studies: Microbiology Studies 08/01/17 08:07 Blood Culture - Preliminary Blood-Venous Gram Positive Cocci Gram Stain - Final 08/01/17 07:30 S.aureus & Coag-Neg Staph PNA FISH - Final Blood-Venous Blood Culture - Preliminary Staphylococcus Sp Coag Neg Gram Stain - Final 08/01/17 08:09 MRSA Culture (Admit) - Final Nose MRSA NOT DETECTED Lab Studies 08/03/17 08/03/17 08/03/17 Range/Units 12:39 11:28 09:54 WBC (4.5-11.0) 10^3/ul RBC (3.5-6.1) 10^6/uL Hgb (12.0-16.0) g/dL Hct (36.0-48.0) % MCV (80.0-105.0) fl MCH (25.0-35.0) pg MCHC (31.0-37.0) g/dl RDW (11.5-14.5) % Plt Count (120.0-450.0) 10^3/uL MPV (7.0-11.0) fl Gran % (50.0-68.0) % Lymph % (Auto) (22.0-35.0) % Carbon % (Auto) (1.0-6.0) % Eos % (Auto) (1.5-5.0) % Baso % (Auto) (0.0-3.0) % Gran # (1.4-6.5) Lymph # (1.2-3.4) Carbon # (0.1-0.6) Eos # (0.0-0.7) Baso # (0.0-2.0) K/mm3 pCO2 (35-45) mm/Hg pO2 (80-100) mm/Hg HCO3 (21-28) mmol/L ABG pH (7.35-7.45) ABG Total CO2 (22-28) mmol.L ABG O2 Saturation (95-98) % ABG O2 Content (15-23) ML/dl ABG Base Excess (-2.0-3.0) mmol/L ABG Hemoglobin (11.7-17.4) g/dL ABG Carboxyhemoglobin (0.5-1.5) % POC ABG HHb (Measured) (0-5) % ABG Methemoglobin (0.0-3.0) % ABG O2 Capacity (16-24) mL/dl Hgb O2 Saturation (95.0-98.0) % FiO2 % Sodium (132-148) mmol/L Potassium (3.6-5.0) mmol/L Chloride (98-107) mmol/L Carbon Dioxide (21-33) mmol/L Anion Gap (10-20) BUN (7-21) mg/dL Creatinine (0.5-1.4) mg/dL Est GFR ( Amer) Est GFR (Non-Af Amer) POC Glucose (mg/dL) 92 85 122 H (65-110) mg/dL Random Glucose (70-110) mg/dL Calcium (8.4-10.5) mg/dL Phosphorus (2.5-4.5) mg/dL Magnesium (1.7-2.2) mg/dL Total Bilirubin (0.2-1.3) mg/dL AST (14-36) U/L ALT (7-56) U/L Alkaline Phosphatase (38-126) U/L Total Protein (5.8-8.3) g/dL Albumin (3.0-4.8) g/dL Globulin gm/dL Albumin/Globulin Ratio (1.1-1.8) 08/03/17 08/03/17 08/03/17 Range/Units 09:22 08:19 07:09 WBC (4.5-11.0) 10^3/ul RBC (3.5-6.1) 10^6/uL Hgb (12.0-16.0) g/dL Hct (36.0-48.0) % MCV (80.0-105.0) fl MCH (25.0-35.0) pg MCHC (31.0-37.0) g/dl RDW (11.5-14.5) % Plt Count (120.0-450.0) 10^3/uL MPV (7.0-11.0) fl Gran % (50.0-68.0) % Lymph % (Auto) (22.0-35.0) % Carbon % (Auto) (1.0-6.0) % Eos % (Auto) (1.5-5.0) % Baso % (Auto) (0.0-3.0) % Gran # (1.4-6.5) Lymph # (1.2-3.4) Carbon # (0.1-0.6) Eos # (0.0-0.7) Baso # (0.0-2.0) K/mm3 pCO2 (35-45) mm/Hg pO2 (80-100) mm/Hg HCO3 (21-28) mmol/L ABG pH (7.35-7.45) ABG Total CO2 (22-28) mmol.L ABG O2 Saturation (95-98) % ABG O2 Content (15-23) ML/dl ABG Base Excess (-2.0-3.0) mmol/L ABG Hemoglobin (11.7-17.4) g/dL ABG Carboxyhemoglobin (0.5-1.5) % POC ABG HHb (Measured) (0-5) % ABG Methemoglobin (0.0-3.0) % ABG O2 Capacity (16-24) mL/dl Hgb O2 Saturation (95.0-98.0) % FiO2 % Sodium (132-148) mmol/L Potassium (3.6-5.0) mmol/L Chloride (98-107) mmol/L Carbon Dioxide (21-33) mmol/L Anion Gap (10-20) BUN (7-21) mg/dL Creatinine (0.5-1.4) mg/dL Est GFR ( Amer) Est GFR (Non-Af Amer) POC Glucose (mg/dL) 135 H 145 H 152 H (65-110) mg/dL Random Glucose (70-110) mg/dL Calcium (8.4-10.5) mg/dL Phosphorus (2.5-4.5) mg/dL Magnesium (1.7-2.2) mg/dL Total Bilirubin (0.2-1.3) mg/dL AST (14-36) U/L ALT (7-56) U/L Alkaline Phosphatase (38-126) U/L Total Protein (5.8-8.3) g/dL Albumin (3.0-4.8) g/dL Globulin gm/dL Albumin/Globulin Ratio (1.1-1.8) 08/03/17 08/03/17 08/03/17 Range/Units 06:30 06:30 06:01 WBC 15.1 H (4.5-11.0) 10^3/ul RBC 2.92 L (3.5-6.1) 10^6/uL Hgb 8.3 L (12.0-16.0) g/dL Hct 27.0 L (36.0-48.0) % MCV 92.5 (80.0-105.0) fl MCH 28.4 (25.0-35.0) pg MCHC 30.7 L (31.0-37.0) g/dl RDW 13.5 (11.5-14.5) % Plt Count 197 (120.0-450.0) 10^3/uL MPV 9.5 (7.0-11.0) fl Gran % 92.3 H (50.0-68.0) % Lymph % (Auto) 4.0 L (22.0-35.0) % Carbon % (Auto) 3.7 (1.0-6.0) % Eos % (Auto) 0.0 L (1.5-5.0) % Baso % (Auto) 0.0 (0.0-3.0) % Gran # 13.95 H (1.4-6.5) Lymph # 0.6 L (1.2-3.4) Carbon # 0.6 (0.1-0.6) Eos # 0.0 (0.0-0.7) Baso # 0.00 (0.0-2.0) K/mm3 pCO2 (35-45) mm/Hg pO2 (80-100) mm/Hg HCO3 (21-28) mmol/L ABG pH (7.35-7.45) ABG Total CO2 (22-28) mmol.L ABG O2 Saturation (95-98) % ABG O2 Content (15-23) ML/dl ABG Base Excess (-2.0-3.0) mmol/L ABG Hemoglobin (11.7-17.4) g/dL ABG Carboxyhemoglobin (0.5-1.5) % POC ABG HHb (Measured) (0-5) % ABG Methemoglobin (0.0-3.0) % ABG O2 Capacity (16-24) mL/dl Hgb O2 Saturation (95.0-98.0) % FiO2 % Sodium 160 H* (132-148) mmol/L Potassium 3.7 (3.6-5.0) mmol/L Chloride 125 H D (98-107) mmol/L Carbon Dioxide 24 (21-33) mmol/L Anion Gap 15 (10-20) BUN 31 H (7-21) mg/dL Creatinine 0.9 (0.5-1.4) mg/dL Est GFR ( Amer) > 60 Est GFR (Non-Af Amer) > 60 POC Glucose (mg/dL) 114 H (65-110) mg/dL Random Glucose 98 (70-110) mg/dL Calcium 9.1 (8.4-10.5) mg/dL Phosphorus 3.4 (2.5-4.5) mg/dL Magnesium 2.1 (1.7-2.2) mg/dL Total Bilirubin 0.3 (0.2-1.3) mg/dL AST 22 (14-36) U/L ALT 35 (7-56) U/L Alkaline Phosphatase 90 (38-126) U/L Total Protein 6.4 (5.8-8.3) g/dL Albumin 3.3 (3.0-4.8) g/dL Globulin 3.1 gm/dL Albumin/Globulin Ratio 1.1 (1.1-1.8) 08/03/17 08/03/17 08/03/17 Range/Units 05:16 05:12 04:15 WBC (4.5-11.0) 10^3/ul RBC (3.5-6.1) 10^6/uL Hgb (12.0-16.0) g/dL Hct (36.0-48.0) % MCV (80.0-105.0) fl MCH (25.0-35.0) pg MCHC (31.0-37.0) g/dl RDW (11.5-14.5) % Plt Count (120.0-450.0) 10^3/uL MPV (7.0-11.0) fl Gran % (50.0-68.0) % Lymph % (Auto) (22.0-35.0) % Carbon % (Auto) (1.0-6.0) % Eos % (Auto) (1.5-5.0) % Baso % (Auto) (0.0-3.0) % Gran # (1.4-6.5) Lymph # (1.2-3.4) Carbon # (0.1-0.6) Eos # (0.0-0.7) Baso # (0.0-2.0) K/mm3 pCO2 34 L (35-45) mm/Hg pO2 141.0 H (80-100) mm/Hg HCO3 23.1 (21-28) mmol/L ABG pH 7.44 (7.35-7.45) ABG Total CO2 24.1 (22-28) mmol.L ABG O2 Saturation 100.3 H (95-98) % ABG O2 Content 10.8 L (15-23) ML/dl ABG Base Excess -0.8 (-2.0-3.0) mmol/L ABG Hemoglobin 7.7 L (11.7-17.4) g/dL ABG Carboxyhemoglobin 2.4 H (0.5-1.5) % POC ABG HHb (Measured) -0.3 L (0-5) % ABG Methemoglobin 1.0 (0.0-3.0) % ABG O2 Capacity 10.8 L (16-24) mL/dl Hgb O2 Saturation 97.0 (95.0-98.0) % FiO2 40.0 % Sodium (132-148) mmol/L Potassium (3.6-5.0) mmol/L Chloride (98-107) mmol/L Carbon Dioxide (21-33) mmol/L Anion Gap (10-20) BUN (7-21) mg/dL Creatinine (0.5-1.4) mg/dL Est GFR ( Amer) Est GFR (Non-Af Amer) POC Glucose (mg/dL) 103 119 H (65-110) mg/dL Random Glucose (70-110) mg/dL Calcium (8.4-10.5) mg/dL Phosphorus (2.5-4.5) mg/dL Magnesium (1.7-2.2) mg/dL Total Bilirubin (0.2-1.3) mg/dL AST (14-36) U/L ALT (7-56) U/L Alkaline Phosphatase (38-126) U/L Total Protein (5.8-8.3) g/dL Albumin (3.0-4.8) g/dL Globulin gm/dL Albumin/Globulin Ratio (1.1-1.8) 08/03/17 08/03/17 08/03/17 Range/Units 03:08 01:53 00:58 WBC (4.5-11.0) 10^3/ul RBC (3.5-6.1) 10^6/uL Hgb (12.0-16.0) g/dL Hct (36.0-48.0) % MCV (80.0-105.0) fl MCH (25.0-35.0) pg MCHC (31.0-37.0) g/dl RDW (11.5-14.5) % Plt Count (120.0-450.0) 10^3/uL MPV (7.0-11.0) fl Gran % (50.0-68.0) % Lymph % (Auto) (22.0-35.0) % Carbon % (Auto) (1.0-6.0) % Eos % (Auto) (1.5-5.0) % Baso % (Auto) (0.0-3.0) % Gran # (1.4-6.5) Lymph # (1.2-3.4) Carbon # (0.1-0.6) Eos # (0.0-0.7) Baso # (0.0-2.0) K/mm3 pCO2 (35-45) mm/Hg pO2 (80-100) mm/Hg HCO3 (21-28) mmol/L ABG pH (7.35-7.45) ABG Total CO2 (22-28) mmol.L ABG O2 Saturation (95-98) % ABG O2 Content (15-23) ML/dl ABG Base Excess (-2.0-3.0) mmol/L ABG Hemoglobin (11.7-17.4) g/dL ABG Carboxyhemoglobin (0.5-1.5) % POC ABG HHb (Measured) (0-5) % ABG Methemoglobin (0.0-3.0) % ABG O2 Capacity (16-24) mL/dl Hgb O2 Saturation (95.0-98.0) % FiO2 % Sodium (132-148) mmol/L Potassium (3.6-5.0) mmol/L Chloride (98-107) mmol/L Carbon Dioxide (21-33) mmol/L Anion Gap (10-20) BUN (7-21) mg/dL Creatinine (0.5-1.4) mg/dL Est GFR ( Amer) Est GFR (Non-Af Amer) POC Glucose (mg/dL) 158 H 176 H 109 (65-110) mg/dL Random Glucose (70-110) mg/dL Calcium (8.4-10.5) mg/dL Phosphorus (2.5-4.5) mg/dL Magnesium (1.7-2.2) mg/dL Total Bilirubin (0.2-1.3) mg/dL AST (14-36) U/L ALT (7-56) U/L Alkaline Phosphatase (38-126) U/L Total Protein (5.8-8.3) g/dL Albumin (3.0-4.8) g/dL Globulin gm/dL Albumin/Globulin Ratio (1.1-1.8) 08/03/17 08/02/17 08/02/17 Range/Units 00:05 23:05 22:04 WBC (4.5-11.0) 10^3/ul RBC (3.5-6.1) 10^6/uL Hgb (12.0-16.0) g/dL Hct (36.0-48.0) % MCV (80.0-105.0) fl MCH (25.0-35.0) pg MCHC (31.0-37.0) g/dl RDW (11.5-14.5) % Plt Count (120.0-450.0) 10^3/uL MPV (7.0-11.0) fl Gran % (50.0-68.0) % Lymph % (Auto) (22.0-35.0) % Carbon % (Auto) (1.0-6.0) % Eos % (Auto) (1.5-5.0) % Baso % (Auto) (0.0-3.0) % Gran # (1.4-6.5) Lymph # (1.2-3.4) Carbon # (0.1-0.6) Eos # (0.0-0.7) Baso # (0.0-2.0) K/mm3 pCO2 (35-45) mm/Hg pO2 (80-100) mm/Hg HCO3 (21-28) mmol/L ABG pH (7.35-7.45) ABG Total CO2 (22-28) mmol.L ABG O2 Saturation (95-98) % ABG O2 Content (15-23) ML/dl ABG Base Excess (-2.0-3.0) mmol/L ABG Hemoglobin (11.7-17.4) g/dL ABG Carboxyhemoglobin (0.5-1.5) % POC ABG HHb (Measured) (0-5) % ABG Methemoglobin (0.0-3.0) % ABG O2 Capacity (16-24) mL/dl Hgb O2 Saturation (95.0-98.0) % FiO2 % Sodium (132-148) mmol/L Potassium (3.6-5.0) mmol/L Chloride (98-107) mmol/L Carbon Dioxide (21-33) mmol/L Anion Gap (10-20) BUN (7-21) mg/dL Creatinine (0.5-1.4) mg/dL Est GFR ( Amer) Est GFR (Non-Af Amer) POC Glucose (mg/dL) 94 116 H 122 H (65-110) mg/dL Random Glucose (70-110) mg/dL Calcium (8.4-10.5) mg/dL Phosphorus (2.5-4.5) mg/dL Magnesium (1.7-2.2) mg/dL Total Bilirubin (0.2-1.3) mg/dL AST (14-36) U/L ALT (7-56) U/L Alkaline Phosphatase (38-126) U/L Total Protein (5.8-8.3) g/dL Albumin (3.0-4.8) g/dL Globulin gm/dL Albumin/Globulin Ratio (1.1-1.8) 08/02/17 08/02/17 08/02/17 Range/Units 21:13 19:52 19:05 WBC (4.5-11.0) 10^3/ul RBC (3.5-6.1) 10^6/uL Hgb (12.0-16.0) g/dL Hct (36.0-48.0) % MCV (80.0-105.0) fl MCH (25.0-35.0) pg MCHC (31.0-37.0) g/dl RDW (11.5-14.5) % Plt Count (120.0-450.0) 10^3/uL MPV (7.0-11.0) fl Gran % (50.0-68.0) % Lymph % (Auto) (22.0-35.0) % Carbon % (Auto) (1.0-6.0) % Eos % (Auto) (1.5-5.0) % Baso % (Auto) (0.0-3.0) % Gran # (1.4-6.5) Lymph # (1.2-3.4) Carbon # (0.1-0.6) Eos # (0.0-0.7) Baso # (0.0-2.0) K/mm3 pCO2 (35-45) mm/Hg pO2 (80-100) mm/Hg HCO3 (21-28) mmol/L ABG pH (7.35-7.45) ABG Total CO2 (22-28) mmol.L ABG O2 Saturation (95-98) % ABG O2 Content (15-23) ML/dl ABG Base Excess (-2.0-3.0) mmol/L ABG Hemoglobin (11.7-17.4) g/dL ABG Carboxyhemoglobin (0.5-1.5) % POC ABG HHb (Measured) (0-5) % ABG Methemoglobin (0.0-3.0) % ABG O2 Capacity (16-24) mL/dl Hgb O2 Saturation (95.0-98.0) % FiO2 % Sodium (132-148) mmol/L Potassium (3.6-5.0) mmol/L Chloride (98-107) mmol/L Carbon Dioxide (21-33) mmol/L Anion Gap (10-20) BUN (7-21) mg/dL Creatinine (0.5-1.4) mg/dL Est GFR ( Amer) Est GFR (Non-Af Amer) POC Glucose (mg/dL) 124 H 139 H 146 H (65-110) mg/dL Random Glucose (70-110) mg/dL Calcium (8.4-10.5) mg/dL Phosphorus (2.5-4.5) mg/dL Magnesium (1.7-2.2) mg/dL Total Bilirubin (0.2-1.3) mg/dL AST (14-36) U/L ALT (7-56) U/L Alkaline Phosphatase (38-126) U/L Total Protein (5.8-8.3) g/dL Albumin (3.0-4.8) g/dL Globulin gm/dL Albumin/Globulin Ratio (1.1-1.8) 08/02/17 08/02/17 08/02/17 Range/Units 18:14 17:29 17:22 WBC (4.5-11.0) 10^3/ul RBC (3.5-6.1) 10^6/uL Hgb (12.0-16.0) g/dL Hct (36.0-48.0) % MCV (80.0-105.0) fl MCH (25.0-35.0) pg MCHC (31.0-37.0) g/dl RDW (11.5-14.5) % Plt Count (120.0-450.0) 10^3/uL MPV (7.0-11.0) fl Gran % (50.0-68.0) % Lymph % (Auto) (22.0-35.0) % Carbon % (Auto) (1.0-6.0) % Eos % (Auto) (1.5-5.0) % Baso % (Auto) (0.0-3.0) % Gran # (1.4-6.5) Lymph # (1.2-3.4) Carbon # (0.1-0.6) Eos # (0.0-0.7) Baso # (0.0-2.0) K/mm3 pCO2 (35-45) mm/Hg pO2 (80-100) mm/Hg HCO3 (21-28) mmol/L ABG pH (7.35-7.45) ABG Total CO2 (22-28) mmol.L ABG O2 Saturation (95-98) % ABG O2 Content (15-23) ML/dl ABG Base Excess (-2.0-3.0) mmol/L ABG Hemoglobin (11.7-17.4) g/dL ABG Carboxyhemoglobin (0.5-1.5) % POC ABG HHb (Measured) (0-5) % ABG Methemoglobin (0.0-3.0) % ABG O2 Capacity (16-24) mL/dl Hgb O2 Saturation (95.0-98.0) % FiO2 % Sodium (132-148) mmol/L Potassium (3.6-5.0) mmol/L Chloride (98-107) mmol/L Carbon Dioxide (21-33) mmol/L Anion Gap (10-20) BUN (7-21) mg/dL Creatinine (0.5-1.4) mg/dL Est GFR ( Amer) Est GFR (Non-Af Amer) POC Glucose (mg/dL) 158 H 150 H 141 H (65-110) mg/dL Random Glucose (70-110) mg/dL Calcium (8.4-10.5) mg/dL Phosphorus (2.5-4.5) mg/dL Magnesium (1.7-2.2) mg/dL Total Bilirubin (0.2-1.3) mg/dL AST (14-36) U/L ALT (7-56) U/L Alkaline Phosphatase (38-126) U/L Total Protein (5.8-8.3) g/dL Albumin (3.0-4.8) g/dL Globulin gm/dL Albumin/Globulin Ratio (1.1-1.8) 08/02/17 Range/Units 15:21 WBC (4.5-11.0) 10^3/ul RBC (3.5-6.1) 10^6/uL Hgb (12.0-16.0) g/dL Hct (36.0-48.0) % MCV (80.0-105.0) fl MCH (25.0-35.0) pg MCHC (31.0-37.0) g/dl RDW (11.5-14.5) % Plt Count (120.0-450.0) 10^3/uL MPV (7.0-11.0) fl Gran % (50.0-68.0) % Lymph % (Auto) (22.0-35.0) % Carbon % (Auto) (1.0-6.0) % Eos % (Auto) (1.5-5.0) % Baso % (Auto) (0.0-3.0) % Gran # (1.4-6.5) Lymph # (1.2-3.4) Carbon # (0.1-0.6) Eos # (0.0-0.7) Baso # (0.0-2.0) K/mm3 pCO2 (35-45) mm/Hg pO2 (80-100) mm/Hg HCO3 (21-28) mmol/L ABG pH (7.35-7.45) ABG Total CO2 (22-28) mmol.L ABG O2 Saturation (95-98) % ABG O2 Content (15-23) ML/dl ABG Base Excess (-2.0-3.0) mmol/L ABG Hemoglobin (11.7-17.4) g/dL ABG Carboxyhemoglobin (0.5-1.5) % POC ABG HHb (Measured) (0-5) % ABG Methemoglobin (0.0-3.0) % ABG O2 Capacity (16-24) mL/dl Hgb O2 Saturation (95.0-98.0) % FiO2 % Sodium (132-148) mmol/L Potassium (3.6-5.0) mmol/L Chloride (98-107) mmol/L Carbon Dioxide (21-33) mmol/L Anion Gap (10-20) BUN (7-21) mg/dL Creatinine (0.5-1.4) mg/dL Est GFR ( Amer) Est GFR (Non-Af Amer) POC Glucose (mg/dL) 134 H (65-110) mg/dL Random Glucose (70-110) mg/dL Calcium (8.4-10.5) mg/dL Phosphorus (2.5-4.5) mg/dL Magnesium (1.7-2.2) mg/dL Total Bilirubin (0.2-1.3) mg/dL AST (14-36) U/L ALT (7-56) U/L Alkaline Phosphatase (38-126) U/L Total Protein (5.8-8.3) g/dL Albumin (3.0-4.8) g/dL Globulin gm/dL Albumin/Globulin Ratio (1.1-1.8) Laboratory Results - last 24 hr 08/02/17 08/02/17 08/02/17 15:21 17:22 17:29 WBC RBC Hgb Hct MCV MCH MCHC RDW Plt Count MPV Gran % Lymph % (Auto) Carbon % (Auto) Eos % (Auto) Baso % (Auto) Gran # Lymph # Carbon # Eos # Baso # pCO2 pO2 HCO3 ABG pH ABG Total CO2 ABG O2 Saturation ABG O2 Content ABG Base Excess ABG Hemoglobin ABG Carboxyhemoglobin POC ABG HHb (Measured) ABG Methemoglobin ABG O2 Capacity Hgb O2 Saturation FiO2 Sodium Potassium Chloride Carbon Dioxide Anion Gap BUN Creatinine Est GFR ( Amer) Est GFR (Non-Af Amer) POC Glucose (mg/dL) 134 H 141 H 150 H Random Glucose Calcium Phosphorus Magnesium Total Bilirubin AST ALT Alkaline Phosphatase Total Protein Albumin Globulin Albumin/Globulin Ratio 08/02/17 08/02/17 08/02/17 18:14 19:05 19:52 WBC RBC Hgb Hct MCV MCH MCHC RDW Plt Count MPV Gran % Lymph % (Auto) Carbon % (Auto) Eos % (Auto) Baso % (Auto) Gran # Lymph # Carbon # Eos # Baso # pCO2 pO2 HCO3 ABG pH ABG Total CO2 ABG O2 Saturation ABG O2 Content ABG Base Excess ABG Hemoglobin ABG Carboxyhemoglobin POC ABG HHb (Measured) ABG Methemoglobin ABG O2 Capacity Hgb O2 Saturation FiO2 Sodium Potassium Chloride Carbon Dioxide Anion Gap BUN Creatinine Est GFR ( Amer) Est GFR (Non-Af Amer) POC Glucose (mg/dL) 158 H 146 H 139 H Random Glucose Calcium Phosphorus Magnesium Total Bilirubin AST ALT Alkaline Phosphatase Total Protein Albumin Globulin Albumin/Globulin Ratio 08/02/17 08/02/17 08/02/17 21:13 22:04 23:05 WBC RBC Hgb Hct MCV MCH MCHC RDW Plt Count MPV Gran % Lymph % (Auto) Carbon % (Auto) Eos % (Auto) Baso % (Auto) Gran # Lymph # Carbon # Eos # Baso # pCO2 pO2 HCO3 ABG pH ABG Total CO2 ABG O2 Saturation ABG O2 Content ABG Base Excess ABG Hemoglobin ABG Carboxyhemoglobin POC ABG HHb (Measured) ABG Methemoglobin ABG O2 Capacity Hgb O2 Saturation FiO2 Sodium Potassium Chloride Carbon Dioxide Anion Gap BUN Creatinine Est GFR ( Amer) Est GFR (Non-Af Amer) POC Glucose (mg/dL) 124 H 122 H 116 H Random Glucose Calcium Phosphorus Magnesium Total Bilirubin AST ALT Alkaline Phosphatase Total Protein Albumin Globulin Albumin/Globulin Ratio 08/03/17 08/03/17 08/03/17 00:05 00:58 01:53 WBC RBC Hgb Hct MCV MCH MCHC RDW Plt Count MPV Gran % Lymph % (Auto) Carbon % (Auto) Eos % (Auto) Baso % (Auto) Gran # Lymph # Carbon # Eos # Baso # pCO2 pO2 HCO3 ABG pH ABG Total CO2 ABG O2 Saturation ABG O2 Content ABG Base Excess ABG Hemoglobin ABG Carboxyhemoglobin POC ABG HHb (Measured) ABG Methemoglobin ABG O2 Capacity Hgb O2 Saturation FiO2 Sodium Potassium Chloride Carbon Dioxide Anion Gap BUN Creatinine Est GFR ( Amer) Est GFR (Non-Af Amer) POC Glucose (mg/dL) 94 109 176 H Random Glucose Calcium Phosphorus Magnesium Total Bilirubin AST ALT Alkaline Phosphatase Total Protein Albumin Globulin Albumin/Globulin Ratio 08/03/17 08/03/17 08/03/17 03:08 04:15 05:12 WBC RBC Hgb Hct MCV MCH MCHC RDW Plt Count MPV Gran % Lymph % (Auto) Carbon % (Auto) Eos % (Auto) Baso % (Auto) Gran # Lymph # Carbon # Eos # Baso # pCO2 34 L pO2 141.0 H HCO3 23.1 ABG pH 7.44 ABG Total CO2 24.1 ABG O2 Saturation 100.3 H ABG O2 Content 10.8 L ABG Base Excess -0.8 ABG Hemoglobin 7.7 L ABG Carboxyhemoglobin 2.4 H POC ABG HHb (Measured) -0.3 L ABG Methemoglobin 1.0 ABG O2 Capacity 10.8 L Hgb O2 Saturation 97.0 FiO2 40.0 Sodium Potassium Chloride Carbon Dioxide Anion Gap BUN Creatinine Est GFR ( Amer) Est GFR (Non-Af Amer) POC Glucose (mg/dL) 158 H 119 H Random Glucose Calcium Phosphorus Magnesium Total Bilirubin AST ALT Alkaline Phosphatase Total Protein Albumin Globulin Albumin/Globulin Ratio 08/03/17 08/03/17 08/03/17 05:16 06:01 06:30 WBC 15.1 H RBC 2.92 L Hgb 8.3 L Hct 27.0 L MCV 92.5 MCH 28.4 MCHC 30.7 L RDW 13.5 Plt Count 197 MPV 9.5 Gran % 92.3 H Lymph % (Auto) 4.0 L Carbon % (Auto) 3.7 Eos % (Auto) 0.0 L Baso % (Auto) 0.0 Gran # 13.95 H Lymph # 0.6 L Carbon # 0.6 Eos # 0.0 Baso # 0.00 pCO2 pO2 HCO3 ABG pH ABG Total CO2 ABG O2 Saturation ABG O2 Content ABG Base Excess ABG Hemoglobin ABG Carboxyhemoglobin POC ABG HHb (Measured) ABG Methemoglobin ABG O2 Capacity Hgb O2 Saturation FiO2 Sodium Potassium Chloride Carbon Dioxide Anion Gap BUN Creatinine Est GFR ( Amer) Est GFR (Non-Af Amer) POC Glucose (mg/dL) 103 114 H Random Glucose Calcium Phosphorus Magnesium Total Bilirubin AST ALT Alkaline Phosphatase Total Protein Albumin Globulin Albumin/Globulin Ratio 08/03/17 08/03/17 08/03/17 06:30 07:09 08:19 WBC RBC Hgb Hct MCV MCH MCHC RDW Plt Count MPV Gran % Lymph % (Auto) Carbon % (Auto) Eos % (Auto) Baso % (Auto) Gran # Lymph # Carbon # Eos # Baso # pCO2 pO2 HCO3 ABG pH ABG Total CO2 ABG O2 Saturation ABG O2 Content ABG Base Excess ABG Hemoglobin ABG Carboxyhemoglobin POC ABG HHb (Measured) ABG Methemoglobin ABG O2 Capacity Hgb O2 Saturation FiO2 Sodium 160 H* Potassium 3.7 Chloride 125 H D Carbon Dioxide 24 Anion Gap 15 BUN 31 H Creatinine 0.9 Est GFR ( Amer) > 60 Est GFR (Non-Af Amer) > 60 POC Glucose (mg/dL) 152 H 145 H Random Glucose 98 Calcium 9.1 Phosphorus 3.4 Magnesium 2.1 Total Bilirubin 0.3 AST 22 ALT 35 Alkaline Phosphatase 90 Total Protein 6.4 Albumin 3.3 Globulin 3.1 Albumin/Globulin Ratio 1.1 08/03/17 08/03/17 08/03/17 09:22 09:54 11:28 WBC RBC Hgb Hct MCV MCH MCHC RDW Plt Count MPV Gran % Lymph % (Auto) Carbon % (Auto) Eos % (Auto) Baso % (Auto) Gran # Lymph # Carbon # Eos # Baso # pCO2 pO2 HCO3 ABG pH ABG Total CO2 ABG O2 Saturation ABG O2 Content ABG Base Excess ABG Hemoglobin ABG Carboxyhemoglobin POC ABG HHb (Measured) ABG Methemoglobin ABG O2 Capacity Hgb O2 Saturation FiO2 Sodium Potassium Chloride Carbon Dioxide Anion Gap BUN Creatinine Est GFR ( Amer) Est GFR (Non-Af Amer) POC Glucose (mg/dL) 135 H 122 H 85 Random Glucose Calcium Phosphorus Magnesium Total Bilirubin AST ALT Alkaline Phosphatase Total Protein Albumin Globulin Albumin/Globulin Ratio 08/03/17 12:39 WBC RBC Hgb Hct MCV MCH MCHC RDW Plt Count MPV Gran % Lymph % (Auto) Carbon % (Auto) Eos % (Auto) Baso % (Auto) Gran # Lymph # Carbon # Eos # Baso # pCO2 pO2 HCO3 ABG pH ABG Total CO2 ABG O2 Saturation ABG O2 Content ABG Base Excess ABG Hemoglobin ABG Carboxyhemoglobin POC ABG HHb (Measured) ABG Methemoglobin ABG O2 Capacity Hgb O2 Saturation FiO2 Sodium Potassium Chloride Carbon Dioxide Anion Gap BUN Creatinine Est GFR ( Amer) Est GFR (Non-Af Amer) POC Glucose (mg/dL) 92 Random Glucose Calcium Phosphorus Magnesium Total Bilirubin AST ALT Alkaline Phosphatase Total Protein Albumin Globulin Albumin/Globulin Ratio Fingerstick Blood Sugar Results: 85 Review of Systems - Review of Systems Review of Systems: Please refer to [facility] Critical Care Progress Note - Ventilator Checklist Head of Bed 30 Degrees: Yes Daily Sedation Vacation: Yes Daily Assessment of Readiness to Wean: Yes PUD Prophalyxis: Yes DVT Prophylaxis: Yes - Extremities/Vascular Does the Patient have a [place] Catheter?: Yes Does the Patient need a [place] Catheter?: Yes - Prophylaxis GI Prophylaxis GI: PPI - Prophylaxis DVT Prophylaxis DVT: SCDs - Nutrition Nutrition: Nutrition Category Date Time Status NPO Diet [DIET] Diets 08/01/17 Lunch Ordered Assessment/Plan - Assessment and Plan (Free Text) Assessment: 67 year old female with a past medical history of endometrial carcinoma, DM2, HTN and HLD who presented with nausea, emesis, headache, and increasingly obtunded state. She was found to have intracranial hemorrhage at previous site of craniotomy with significant midline shift. She was intubated for airway protection. Biopsies revealed that the mass removed was metastatic disease. Patient was also found to have blood cultures positive for gram positive cocci. Surgery is consulted for removal and possible replacement of left chest wall port. Patient was made DNR/DNI by her on 08/03 and palliative care was consulted. 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, 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 -Continue Decadron and Keppra -Discontinued hypertonic saline -Continue Ofirmev PRN -Continue to maintain euglycemia, normothermia and aspiration precautions with HOB above 30 degrees -Neurosurgery recommending no intervention and conservative management -Neurosurgery and Neurology consulted, all recommendations appreciated Pulm: -Chest X-Ray notable for stable limited left basilar atelectasis with no infiltrates or effusions -Continue mechanical ventilation on PRVC setting with daily weaning trials of PS /CPAP -Plans to extubate patient -Will only use Propofol as needed until extubation -ABG showing normal pH in setting of increased pO2 and decreased pCO2 -Maintain oxygen saturation above 92% Cardio: -EKG showing normal sinus rhythm -Previous ECHO done in June showed LVEF of 50% GI: -Continue Protonix -NPO diet -[employer] will reevaluate when patient is extubated for swallow evaluation Renal: -BUN/Creatinine stable at 31/0.9 -Continue to monitor and replenish electrolytes as clinically indicated with daily CMP's -Continue [place], with 1900cc of UOP over the past 24 hours Endo: -Continue Insulin drip to maintain euglycemia -Has received 100u of insulin with drip over the past 24 hours -Continue Accucheck Q1H Heme/Onc: -See path report above -Last chemo treatment was three months ago -Patient not a candidate for pharmacotherapy for DVT prophylaxis with ICH -H/H and platelets stable -Continue to monitor with daily CBC's -Heme/Onc and palliative care consulted, all recommendations appreciated ID: -Blood cultures showing gram positive cocci -Port in left chest wall to be removed today (08/03) -Currently with improving leukocytosis of 15.1, afebrile, normotensive and with no tachycardia -Continue IV Vancomycin and IV Aztreonam -ID and Surgery consulted, all recommendations appreciated Lines: -Continue all new peripheral lines -Port in left chest wall to be removed today (08/03) GI Prophylaxis: Protonix DVT Prophylaxis: SCD's Disposition: Patient made DNR/DNI, per . Palliative care to meet with family and discuss goals of care going forward. Poor prognosis overall with metastatic cancer. Patient seen and case discussed with attending, Dr. Lambert. - Date & Time Date: 08/03/17 Time: 13:53 <Fausto DIETRICH,[facility] H - Last Filed: 08/03/17 16:32> CCU Objective - Vital Signs / Intake & Output Vital Signs (Last 4 hours): Vital Signs Temp Pulse Resp BP Pulse Ox 08/03/17 14:52 94 H 08/03/17 14:00 98.8 F 97 H 31 H 96 08/03/17 13:01 99.0 F 61 150/57 L 99 08/03/17 13:00 99.0 F 55 L 98 Intake and Output (Last 8hrs): Intake & Output 08/03/17 08/03/17 08/03/17 06:59 14:59 22:59 Intake Total 1277.5 81.5 Output Total 900 Balance 377.5 81.5 Weight 235 lb Intake: IV 1277.5 81.5 Left Subclavian 1250 Output: Urine 900 2-way Urethral 900 Other: # Bowel Movements 0 - Medications Active Medications: Active Medications Generic Name Dose Route Start Last Admin Trade Name Freq PRN Reason Stop Dose Admin Dexamethasone 10 mg 08/01/17 22:01 08/03/17 12:25 Decadron Inj IVP 10 mg Q6 VANIA Administration Levetiracetam 500 mg in 100 mls @ 460 mls/hr 08/01/17 10:00 08/03/17 11:07 Keppra 500mg Ivpb IVPB 460 mls/hr Q12 VANIA Administration Insulin Human Regular 100 100 mls @ 5 mls/hr 08/01/17 09:44 08/03/17 11:29 units/ Sodium Chloride IV 1.5 units/hr .Q20H PRN 1.5 mls/hr TITRATE PER MD ORDER Administration Protocol 5 UNITS/HR Propofol 1,000 mg in 100 mls @ 3.239 mls/hr 08/01/17 09:50 08/03/17 01:11 Diprivan IV 9.3 mcg/kg/min .Q24H PRN 6.024 mls/hr Agitation Administration Protocol 5 MCG/KG/MIN Sodium Chloride 500 mls @ 50 mls/hr 08/01/17 18:45 08/03/17 01:56 Hypertonic Saline 3% IV 50 mls/hr .Q10H VANIA Administration Vancomycin HCl 1 gm in 250 mls @ 167 mls/hr 08/02/17 12:15 08/03/17 12:19 Vancomycin 1gm IVPB 167 mls/hr Q12H VANIA Administration Protocol Aztreonam 100 mls @ 100 mls/hr 08/02/17 15:15 08/03/17 05:17 Azactam 1 Gm IVPB 100 mls/hr Q8 VANIA Administration Protocol Insulin Human Regular 0 units 08/01/17 08:00 08/01/17 09:33 Humulin R Med SC 8 units Q4H VANIA Administration Protocol Nystatin/Triamcinolone Acetonide 1 ea 08/01/17 20:55 Nystatin/Triamcinolone Cream TOP BID PRN Excoriation Pantoprazole Sodium 40 mg 08/01/17 10:00 08/03/17 11:15 Protonix Inj IVP 40 mg DAILY VANIA Administration - Patient Studies Lab Studies: Microbiology Studies 08/01/17 08:07 Blood Culture - Preliminary Blood-Venous Gram Positive Cocci Gram Stain - Final 08/01/17 07:30 S.aureus & Coag-Neg Staph PNA FISH - Final Blood-Venous Blood Culture - Preliminary Staphylococcus Sp Coag Neg Gram Stain - Final 08/01/17 08:09 MRSA Culture (Admit) - Final Nose MRSA NOT DETECTED Lab Studies 08/03/17 08/03/17 08/03/17 Range/Units 14:51 14:17 12:39 WBC (4.5-11.0) 10^3/ul RBC (3.5-6.1) 10^6/uL Hgb (12.0-16.0) g/dL Hct (36.0-48.0) % MCV (80.0-105.0) fl MCH (25.0-35.0) pg MCHC (31.0-37.0) g/dl RDW (11.5-14.5) % Plt Count (120.0-450.0) 10^3/uL MPV (7.0-11.0) fl Gran % (50.0-68.0) % Lymph % (Auto) (22.0-35.0) % Carbon % (Auto) (1.0-6.0) % Eos % (Auto) (1.5-5.0) % Baso % (Auto) (0.0-3.0) % Gran # (1.4-6.5) Lymph # (1.2-3.4) Carbon # (0.1-0.6) Eos # (0.0-0.7) Baso # (0.0-2.0) K/mm3 pCO2 (35-45) mm/Hg pO2 (80-100) mm/Hg HCO3 (21-28) mmol/L ABG pH (7.35-7.45) ABG Total CO2 (22-28) mmol.L ABG O2 Saturation (95-98) % ABG O2 Content (15-23) ML/dl ABG Base Excess (-2.0-3.0) mmol/L ABG Hemoglobin (11.7-17.4) g/dL ABG Carboxyhemoglobin (0.5-1.5) % POC ABG HHb (Measured) (0-5) % ABG Methemoglobin (0.0-3.0) % ABG O2 Capacity (16-24) mL/dl Hgb O2 Saturation (95.0-98.0) % FiO2 % Sodium (132-148) mmol/L Potassium (3.6-5.0) mmol/L Chloride (98-107) mmol/L Carbon Dioxide (21-33) mmol/L Anion Gap (10-20) BUN (7-21) mg/dL Creatinine (0.5-1.4) mg/dL Est GFR ( Amer) Est GFR (Non-Af Amer) POC Glucose (mg/dL) 143 H 109 92 (65-110) mg/dL Random Glucose (70-110) mg/dL Calcium (8.4-10.5) mg/dL Phosphorus (2.5-4.5) mg/dL Magnesium (1.7-2.2) mg/dL Total Bilirubin (0.2-1.3) mg/dL AST (14-36) U/L ALT (7-56) U/L Alkaline Phosphatase (38-126) U/L Total Protein (5.8-8.3) g/dL Albumin (3.0-4.8) g/dL Globulin gm/dL Albumin/Globulin Ratio (1.1-1.8) 08/03/17 08/03/17 08/03/17 Range/Units 11:28 09:54 09:22 WBC (4.5-11.0) 10^3/ul RBC (3.5-6.1) 10^6/uL Hgb (12.0-16.0) g/dL Hct (36.0-48.0) % MCV (80.0-105.0) fl MCH (25.0-35.0) pg MCHC (31.0-37.0) g/dl RDW (11.5-14.5) % Plt Count (120.0-450.0) 10^3/uL MPV (7.0-11.0) fl Gran % (50.0-68.0) % Lymph % (Auto) (22.0-35.0) % Carbon % (Auto) (1.0-6.0) % Eos % (Auto) (1.5-5.0) % Baso % (Auto) (0.0-3.0) % Gran # (1.4-6.5) Lymph # (1.2-3.4) Carbon # (0.1-0.6) Eos # (0.0-0.7) Baso # (0.0-2.0) K/mm3 pCO2 (35-45) mm/Hg pO2 (80-100) mm/Hg HCO3 (21-28) mmol/L ABG pH (7.35-7.45) ABG Total CO2 (22-28) mmol.L ABG O2 Saturation (95-98) % ABG O2 Content (15-23) ML/dl ABG Base Excess (-2.0-3.0) mmol/L ABG Hemoglobin (11.7-17.4) g/dL ABG Carboxyhemoglobin (0.5-1.5) % POC ABG HHb (Measured) (0-5) % ABG Methemoglobin (0.0-3.0) % ABG O2 Capacity (16-24) mL/dl Hgb O2 Saturation (95.0-98.0) % FiO2 % Sodium (132-148) mmol/L Potassium (3.6-5.0) mmol/L Chloride (98-107) mmol/L Carbon Dioxide (21-33) mmol/L Anion Gap (10-20) BUN (7-21) mg/dL Creatinine (0.5-1.4) mg/dL Est GFR ( Amer) Est GFR (Non-Af Amer) POC Glucose (mg/dL) 85 122 H 135 H (65-110) mg/dL Random Glucose (70-110) mg/dL Calcium (8.4-10.5) mg/dL Phosphorus (2.5-4.5) mg/dL Magnesium (1.7-2.2) mg/dL Total Bilirubin (0.2-1.3) mg/dL AST (14-36) U/L ALT (7-56) U/L Alkaline Phosphatase (38-126) U/L Total Protein (5.8-8.3) g/dL Albumin (3.0-4.8) g/dL Globulin gm/dL Albumin/Globulin Ratio (1.1-1.8) 08/03/17 08/03/17 08/03/17 Range/Units 08:19 07:09 06:30 WBC (4.5-11.0) 10^3/ul RBC (3.5-6.1) 10^6/uL Hgb (12.0-16.0) g/dL Hct (36.0-48.0) % MCV (80.0-105.0) fl MCH (25.0-35.0) pg MCHC (31.0-37.0) g/dl RDW (11.5-14.5) % Plt Count (120.0-450.0) 10^3/uL MPV (7.0-11.0) fl Gran % (50.0-68.0) % Lymph % (Auto) (22.0-35.0) % Carbon % (Auto) (1.0-6.0) % Eos % (Auto) (1.5-5.0) % Baso % (Auto) (0.0-3.0) % Gran # (1.4-6.5) Lymph # (1.2-3.4) Carbon # (0.1-0.6) Eos # (0.0-0.7) Baso # (0.0-2.0) K/mm3 pCO2 (35-45) mm/Hg pO2 (80-100) mm/Hg HCO3 (21-28) mmol/L ABG pH (7.35-7.45) ABG Total CO2 (22-28) mmol.L ABG O2 Saturation (95-98) % ABG O2 Content (15-23) ML/dl ABG Base Excess (-2.0-3.0) mmol/L ABG Hemoglobin (11.7-17.4) g/dL ABG Carboxyhemoglobin (0.5-1.5) % POC ABG HHb (Measured) (0-5) % ABG Methemoglobin (0.0-3.0) % ABG O2 Capacity (16-24) mL/dl Hgb O2 Saturation (95.0-98.0) % FiO2 % Sodium 160 H* (132-148) mmol/L Potassium 3.7 (3.6-5.0) mmol/L Chloride 125 H D (98-107) mmol/L Carbon Dioxide 24 (21-33) mmol/L Anion Gap 15 (10-20) BUN 31 H (7-21) mg/dL Creatinine 0.9 (0.5-1.4) mg/dL Est GFR ( Amer) > 60 Est GFR (Non-Af Amer) > 60 POC Glucose (mg/dL) 145 H 152 H (65-110) mg/dL Random Glucose 98 (70-110) mg/dL Calcium 9.1 (8.4-10.5) mg/dL Phosphorus 3.4 (2.5-4.5) mg/dL Magnesium 2.1 (1.7-2.2) mg/dL Total Bilirubin 0.3 (0.2-1.3) mg/dL AST 22 (14-36) U/L ALT 35 (7-56) U/L Alkaline Phosphatase 90 (38-126) U/L Total Protein 6.4 (5.8-8.3) g/dL Albumin 3.3 (3.0-4.8) g/dL Globulin 3.1 gm/dL Albumin/Globulin Ratio 1.1 (1.1-1.8) 08/03/17 08/03/17 08/03/17 Range/Units 06:30 06:01 05:16 WBC 15.1 H (4.5-11.0) 10^3/ul RBC 2.92 L (3.5-6.1) 10^6/uL Hgb 8.3 L (12.0-16.0) g/dL Hct 27.0 L (36.0-48.0) % MCV 92.5 (80.0-105.0) fl MCH 28.4 (25.0-35.0) pg MCHC 30.7 L (31.0-37.0) g/dl RDW 13.5 (11.5-14.5) % Plt Count 197 (120.0-450.0) 10^3/uL MPV 9.5 (7.0-11.0) fl Gran % 92.3 H (50.0-68.0) % Lymph % (Auto) 4.0 L (22.0-35.0) % Carbon % (Auto) 3.7 (1.0-6.0) % Eos % (Auto) 0.0 L (1.5-5.0) % Baso % (Auto) 0.0 (0.0-3.0) % Gran # 13.95 H (1.4-6.5) Lymph # 0.6 L (1.2-3.4) Carbon # 0.6 (0.1-0.6) Eos # 0.0 (0.0-0.7) Baso # 0.00 (0.0-2.0) K/mm3 pCO2 (35-45) mm/Hg pO2 (80-100) mm/Hg HCO3 (21-28) mmol/L ABG pH (7.35-7.45) ABG Total CO2 (22-28) mmol.L ABG O2 Saturation (95-98) % ABG O2 Content (15-23) ML/dl ABG Base Excess (-2.0-3.0) mmol/L ABG Hemoglobin (11.7-17.4) g/dL ABG Carboxyhemoglobin (0.5-1.5) % POC ABG HHb (Measured) (0-5) % ABG Methemoglobin (0.0-3.0) % ABG O2 Capacity (16-24) mL/dl Hgb O2 Saturation (95.0-98.0) % FiO2 % Sodium (132-148) mmol/L Potassium (3.6-5.0) mmol/L Chloride (98-107) mmol/L Carbon Dioxide (21-33) mmol/L Anion Gap (10-20) BUN (7-21) mg/dL Creatinine (0.5-1.4) mg/dL Est GFR ( Amer) Est GFR (Non-Af Amer) POC Glucose (mg/dL) 114 H 103 (65-110) mg/dL Random Glucose (70-110) mg/dL Calcium (8.4-10.5) mg/dL Phosphorus (2.5-4.5) mg/dL Magnesium (1.7-2.2) mg/dL Total Bilirubin (0.2-1.3) mg/dL AST (14-36) U/L ALT (7-56) U/L Alkaline Phosphatase (38-126) U/L Total Protein (5.8-8.3) g/dL Albumin (3.0-4.8) g/dL Globulin gm/dL Albumin/Globulin Ratio (1.1-1.8) 08/03/17 08/03/17 08/03/17 Range/Units 05:12 04:15 03:08 WBC (4.5-11.0) 10^3/ul RBC (3.5-6.1) 10^6/uL Hgb (12.0-16.0) g/dL Hct (36.0-48.0) % MCV (80.0-105.0) fl MCH (25.0-35.0) pg MCHC (31.0-37.0) g/dl RDW (11.5-14.5) % Plt Count (120.0-450.0) 10^3/uL MPV (7.0-11.0) fl Gran % (50.0-68.0) % Lymph % (Auto) (22.0-35.0) % Carbon % (Auto) (1.0-6.0) % Eos % (Auto) (1.5-5.0) % Baso % (Auto) (0.0-3.0) % Gran # (1.4-6.5) Lymph # (1.2-3.4) Carbon # (0.1-0.6) Eos # (0.0-0.7) Baso # (0.0-2.0) K/mm3 pCO2 34 L (35-45) mm/Hg pO2 141.0 H (80-100) mm/Hg HCO3 23.1 (21-28) mmol/L ABG pH 7.44 (7.35-7.45) ABG Total CO2 24.1 (22-28) mmol.L ABG O2 Saturation 100.3 H (95-98) % ABG O2 Content 10.8 L (15-23) ML/dl ABG Base Excess -0.8 (-2.0-3.0) mmol/L ABG Hemoglobin 7.7 L (11.7-17.4) g/dL ABG Carboxyhemoglobin 2.4 H (0.5-1.5) % POC ABG HHb (Measured) -0.3 L (0-5) % ABG Methemoglobin 1.0 (0.0-3.0) % ABG O2 Capacity 10.8 L (16-24) mL/dl Hgb O2 Saturation 97.0 (95.0-98.0) % FiO2 40.0 % Sodium (132-148) mmol/L Potassium (3.6-5.0) mmol/L Chloride (98-107) mmol/L Carbon Dioxide (21-33) mmol/L Anion Gap (10-20) BUN (7-21) mg/dL Creatinine (0.5-1.4) mg/dL Est GFR ( Amer) Est GFR (Non-Af Amer) POC Glucose (mg/dL) 119 H 158 H (65-110) mg/dL Random Glucose (70-110) mg/dL Calcium (8.4-10.5) mg/dL Phosphorus (2.5-4.5) mg/dL Magnesium (1.7-2.2) mg/dL Total Bilirubin (0.2-1.3) mg/dL AST (14-36) U/L ALT (7-56) U/L Alkaline Phosphatase (38-126) U/L Total Protein (5.8-8.3) g/dL Albumin (3.0-4.8) g/dL Globulin gm/dL Albumin/Globulin Ratio (1.1-1.8) 08/03/17 08/03/17 08/03/17 Range/Units 01:53 00:58 00:05 WBC (4.5-11.0) 10^3/ul RBC (3.5-6.1) 10^6/uL Hgb (12.0-16.0) g/dL Hct (36.0-48.0) % MCV (80.0-105.0) fl MCH (25.0-35.0) pg MCHC (31.0-37.0) g/dl RDW (11.5-14.5) % Plt Count (120.0-450.0) 10^3/uL MPV (7.0-11.0) fl Gran % (50.0-68.0) % Lymph % (Auto) (22.0-35.0) % Carbon % (Auto) (1.0-6.0) % Eos % (Auto) (1.5-5.0) % Baso % (Auto) (0.0-3.0) % Gran # (1.4-6.5) Lymph # (1.2-3.4) Carbon # (0.1-0.6) Eos # (0.0-0.7) Baso # (0.0-2.0) K/mm3 pCO2 (35-45) mm/Hg pO2 (80-100) mm/Hg HCO3 (21-28) mmol/L ABG pH (7.35-7.45) ABG Total CO2 (22-28) mmol.L ABG O2 Saturation (95-98) % ABG O2 Content (15-23) ML/dl ABG Base Excess (-2.0-3.0) mmol/L ABG Hemoglobin (11.7-17.4) g/dL ABG Carboxyhemoglobin (0.5-1.5) % POC ABG HHb (Measured) (0-5) % ABG Methemoglobin (0.0-3.0) % ABG O2 Capacity (16-24) mL/dl Hgb O2 Saturation (95.0-98.0) % FiO2 % Sodium (132-148) mmol/L Potassium (3.6-5.0) mmol/L Chloride (98-107) mmol/L Carbon Dioxide (21-33) mmol/L Anion Gap (10-20) BUN (7-21) mg/dL Creatinine (0.5-1.4) mg/dL Est GFR ( Amer) Est GFR (Non-Af Amer) POC Glucose (mg/dL) 176 H 109 94 (65-110) mg/dL Random Glucose (70-110) mg/dL Calcium (8.4-10.5) mg/dL Phosphorus (2.5-4.5) mg/dL Magnesium (1.7-2.2) mg/dL Total Bilirubin (0.2-1.3) mg/dL AST (14-36) U/L ALT (7-56) U/L Alkaline Phosphatase (38-126) U/L Total Protein (5.8-8.3) g/dL Albumin (3.0-4.8) g/dL Globulin gm/dL Albumin/Globulin Ratio (1.1-1.8) 08/02/17 08/02/17 08/02/17 Range/Units 23:05 22:04 21:13 WBC (4.5-11.0) 10^3/ul RBC (3.5-6.1) 10^6/uL Hgb (12.0-16.0) g/dL Hct (36.0-48.0) % MCV (80.0-105.0) fl MCH (25.0-35.0) pg MCHC (31.0-37.0) g/dl RDW (11.5-14.5) % Plt Count (120.0-450.0) 10^3/uL MPV (7.0-11.0) fl Gran % (50.0-68.0) % Lymph % (Auto) (22.0-35.0) % Carbon % (Auto) (1.0-6.0) % Eos % (Auto) (1.5-5.0) % Baso % (Auto) (0.0-3.0) % Gran # (1.4-6.5) Lymph # (1.2-3.4) Carbon # (0.1-0.6) Eos # (0.0-0.7) Baso # (0.0-2.0) K/mm3 pCO2 (35-45) mm/Hg pO2 (80-100) mm/Hg HCO3 (21-28) mmol/L ABG pH (7.35-7.45) ABG Total CO2 (22-28) mmol.L ABG O2 Saturation (95-98) % ABG O2 Content (15-23) ML/dl ABG Base Excess (-2.0-3.0) mmol/L ABG Hemoglobin (11.7-17.4) g/dL ABG Carboxyhemoglobin (0.5-1.5) % POC ABG HHb (Measured) (0-5) % ABG Methemoglobin (0.0-3.0) % ABG O2 Capacity (16-24) mL/dl Hgb O2 Saturation (95.0-98.0) % FiO2 % Sodium (132-148) mmol/L Potassium (3.6-5.0) mmol/L Chloride (98-107) mmol/L Carbon Dioxide (21-33) mmol/L Anion Gap (10-20) BUN (7-21) mg/dL Creatinine (0.5-1.4) mg/dL Est GFR ( Amer) Est GFR (Non-Af Amer) POC Glucose (mg/dL) 116 H 122 H 124 H (65-110) mg/dL Random Glucose (70-110) mg/dL Calcium (8.4-10.5) mg/dL Phosphorus (2.5-4.5) mg/dL Magnesium (1.7-2.2) mg/dL Total Bilirubin (0.2-1.3) mg/dL AST (14-36) U/L ALT (7-56) U/L Alkaline Phosphatase (38-126) U/L Total Protein (5.8-8.3) g/dL Albumin (3.0-4.8) g/dL Globulin gm/dL Albumin/Globulin Ratio (1.1-1.8) 08/02/17 08/02/17 08/02/17 Range/Units 19:52 19:05 18:14 WBC (4.5-11.0) 10^3/ul RBC (3.5-6.1) 10^6/uL Hgb (12.0-16.0) g/dL Hct (36.0-48.0) % MCV (80.0-105.0) fl MCH (25.0-35.0) pg MCHC (31.0-37.0) g/dl RDW (11.5-14.5) % Plt Count (120.0-450.0) 10^3/uL MPV (7.0-11.0) fl Gran % (50.0-68.0) % Lymph % (Auto) (22.0-35.0) % Carbon % (Auto) (1.0-6.0) % Eos % (Auto) (1.5-5.0) % Baso % (Auto) (0.0-3.0) % Gran # (1.4-6.5) Lymph # (1.2-3.4) Carbon # (0.1-0.6) Eos # (0.0-0.7) Baso # (0.0-2.0) K/mm3 pCO2 (35-45) mm/Hg pO2 (80-100) mm/Hg HCO3 (21-28) mmol/L ABG pH (7.35-7.45) ABG Total CO2 (22-28) mmol.L ABG O2 Saturation (95-98) % ABG O2 Content (15-23) ML/dl ABG Base Excess (-2.0-3.0) mmol/L ABG Hemoglobin (11.7-17.4) g/dL ABG Carboxyhemoglobin (0.5-1.5) % POC ABG HHb (Measured) (0-5) % ABG Methemoglobin (0.0-3.0) % ABG O2 Capacity (16-24) mL/dl Hgb O2 Saturation (95.0-98.0) % FiO2 % Sodium (132-148) mmol/L Potassium (3.6-5.0) mmol/L Chloride (98-107) mmol/L Carbon Dioxide (21-33) mmol/L Anion Gap (10-20) BUN (7-21) mg/dL Creatinine (0.5-1.4) mg/dL Est GFR ( Amer) Est GFR (Non-Af Amer) POC Glucose (mg/dL) 139 H 146 H 158 H (65-110) mg/dL Random Glucose (70-110) mg/dL Calcium (8.4-10.5) mg/dL Phosphorus (2.5-4.5) mg/dL Magnesium (1.7-2.2) mg/dL Total Bilirubin (0.2-1.3) mg/dL AST (14-36) U/L ALT (7-56) U/L Alkaline Phosphatase (38-126) U/L Total Protein (5.8-8.3) g/dL Albumin (3.0-4.8) g/dL Globulin gm/dL Albumin/Globulin Ratio (1.1-1.8) 08/02/17 08/02/17 Range/Units 17:29 17:22 WBC (4.5-11.0) 10^3/ul RBC (3.5-6.1) 10^6/uL Hgb (12.0-16.0) g/dL Hct (36.0-48.0) % MCV (80.0-105.0) fl MCH (25.0-35.0) pg MCHC (31.0-37.0) g/dl RDW (11.5-14.5) % Plt Count (120.0-450.0) 10^3/uL MPV (7.0-11.0) fl Gran % (50.0-68.0) % Lymph % (Auto) (22.0-35.0) % Carbon % (Auto) (1.0-6.0) % Eos % (Auto) (1.5-5.0) % Baso % (Auto) (0.0-3.0) % Gran # (1.4-6.5) Lymph # (1.2-3.4) Carbon # (0.1-0.6) Eos # (0.0-0.7) Baso # (0.0-2.0) K/mm3 pCO2 (35-45) mm/Hg pO2 (80-100) mm/Hg HCO3 (21-28) mmol/L ABG pH (7.35-7.45) ABG Total CO2 (22-28) mmol.L ABG O2 Saturation (95-98) % ABG O2 Content (15-23) ML/dl ABG Base Excess (-2.0-3.0) mmol/L ABG Hemoglobin (11.7-17.4) g/dL ABG Carboxyhemoglobin (0.5-1.5) % POC ABG HHb (Measured) (0-5) % ABG Methemoglobin (0.0-3.0) % ABG O2 Capacity (16-24) mL/dl Hgb O2 Saturation (95.0-98.0) % FiO2 % Sodium (132-148) mmol/L Potassium (3.6-5.0) mmol/L Chloride (98-107) mmol/L Carbon Dioxide (21-33) mmol/L Anion Gap (10-20) BUN (7-21) mg/dL Creatinine (0.5-1.4) mg/dL Est GFR ( Amer) Est GFR (Non-Af Amer) POC Glucose (mg/dL) 150 H 141 H (65-110) mg/dL Random Glucose (70-110) mg/dL Calcium (8.4-10.5) mg/dL Phosphorus (2.5-4.5) mg/dL Magnesium (1.7-2.2) mg/dL Total Bilirubin (0.2-1.3) mg/dL AST (14-36) U/L ALT (7-56) U/L Alkaline Phosphatase (38-126) U/L Total Protein (5.8-8.3) g/dL Albumin (3.0-4.8) g/dL Globulin gm/dL Albumin/Globulin Ratio (1.1-1.8) Laboratory Results - last 24 hr 08/02/17 08/02/17 08/02/17 17:22 17:29 18:14 WBC RBC Hgb Hct MCV MCH MCHC RDW Plt Count MPV Gran % Lymph % (Auto) Carbon % (Auto) Eos % (Auto) Baso % (Auto) Gran # Lymph # Carbon # Eos # Baso # pCO2 pO2 HCO3 ABG pH ABG Total CO2 ABG O2 Saturation ABG O2 Content ABG Base Excess ABG Hemoglobin ABG Carboxyhemoglobin POC ABG HHb (Measured) ABG Methemoglobin ABG O2 Capacity Hgb O2 Saturation FiO2 Sodium Potassium Chloride Carbon Dioxide Anion Gap BUN Creatinine Est GFR ( Amer) Est GFR (Non-Af Amer) POC Glucose (mg/dL) 141 H 150 H 158 H Random Glucose Calcium Phosphorus Magnesium Total Bilirubin AST ALT Alkaline Phosphatase Total Protein Albumin Globulin Albumin/Globulin Ratio 08/02/17 08/02/17 08/02/17 19:05 19:52 21:13 WBC RBC Hgb Hct MCV MCH MCHC RDW Plt Count MPV Gran % Lymph % (Auto) Carbon % (Auto) Eos % (Auto) Baso % (Auto) Gran # Lymph # Carbon # Eos # Baso # pCO2 pO2 HCO3 ABG pH ABG Total CO2 ABG O2 Saturation ABG O2 Content ABG Base Excess ABG Hemoglobin ABG Carboxyhemoglobin POC ABG HHb (Measured) ABG Methemoglobin ABG O2 Capacity Hgb O2 Saturation FiO2 Sodium Potassium Chloride Carbon Dioxide Anion Gap BUN Creatinine Est GFR ( Amer) Est GFR (Non-Af Amer) POC Glucose (mg/dL) 146 H 139 H 124 H Random Glucose Calcium Phosphorus Magnesium Total Bilirubin AST ALT Alkaline Phosphatase Total Protein Albumin Globulin Albumin/Globulin Ratio 08/02/17 08/02/17 08/03/17 22:04 23:05 00:05 WBC RBC Hgb Hct MCV MCH MCHC RDW Plt Count MPV Gran % Lymph % (Auto) Carbon % (Auto) Eos % (Auto) Baso % (Auto) Gran # Lymph # Carbon # Eos # Baso # pCO2 pO2 HCO3 ABG pH ABG Total CO2 ABG O2 Saturation ABG O2 Content ABG Base Excess ABG Hemoglobin ABG Carboxyhemoglobin POC ABG HHb (Measured) ABG Methemoglobin ABG O2 Capacity Hgb O2 Saturation FiO2 Sodium Potassium Chloride Carbon Dioxide Anion Gap BUN Creatinine Est GFR ( Amer) Est GFR (Non-Af Amer) POC Glucose (mg/dL) 122 H 116 H 94 Random Glucose Calcium Phosphorus Magnesium Total Bilirubin AST ALT Alkaline Phosphatase Total Protein Albumin Globulin Albumin/Globulin Ratio 08/03/17 08/03/17 08/03/17 00:58 01:53 03:08 WBC RBC Hgb Hct MCV MCH MCHC RDW Plt Count MPV Gran % Lymph % (Auto) Carbon % (Auto) Eos % (Auto) Baso % (Auto) Gran # Lymph # Carbon # Eos # Baso # pCO2 pO2 HCO3 ABG pH ABG Total CO2 ABG O2 Saturation ABG O2 Content ABG Base Excess ABG Hemoglobin ABG Carboxyhemoglobin POC ABG HHb (Measured) ABG Methemoglobin ABG O2 Capacity Hgb O2 Saturation FiO2 Sodium Potassium Chloride Carbon Dioxide Anion Gap BUN Creatinine Est GFR ( Amer) Est GFR (Non-Af Amer) POC Glucose (mg/dL) 109 176 H 158 H Random Glucose Calcium Phosphorus Magnesium Total Bilirubin AST ALT Alkaline Phosphatase Total Protein Albumin Globulin Albumin/Globulin Ratio 08/03/17 08/03/17 08/03/17 04:15 05:12 05:16 WBC RBC Hgb Hct MCV MCH MCHC RDW Plt Count MPV Gran % Lymph % (Auto) Carbon % (Auto) Eos % (Auto) Baso % (Auto) Gran # Lymph # Carbon # Eos # Baso # pCO2 34 L pO2 141.0 H HCO3 23.1 ABG pH 7.44 ABG Total CO2 24.1 ABG O2 Saturation 100.3 H ABG O2 Content 10.8 L ABG Base Excess -0.8 ABG Hemoglobin 7.7 L ABG Carboxyhemoglobin 2.4 H POC ABG HHb (Measured) -0.3 L ABG Methemoglobin 1.0 ABG O2 Capacity 10.8 L Hgb O2 Saturation 97.0 FiO2 40.0 Sodium Potassium Chloride Carbon Dioxide Anion Gap BUN Creatinine Est GFR ( Amer) Est GFR (Non-Af Amer) POC Glucose (mg/dL) 119 H 103 Random Glucose Calcium Phosphorus Magnesium Total Bilirubin AST ALT Alkaline Phosphatase Total Protein Albumin Globulin Albumin/Globulin Ratio 08/03/17 08/03/17 08/03/17 06:01 06:30 06:30 WBC 15.1 H RBC 2.92 L Hgb 8.3 L Hct 27.0 L MCV 92.5 MCH 28.4 MCHC 30.7 L RDW 13.5 Plt Count 197 MPV 9.5 Gran % 92.3 H Lymph % (Auto) 4.0 L Carbon % (Auto) 3.7 Eos % (Auto) 0.0 L Baso % (Auto) 0.0 Gran # 13.95 H Lymph # 0.6 L Carbon # 0.6 Eos # 0.0 Baso # 0.00 pCO2 pO2 HCO3 ABG pH ABG Total CO2 ABG O2 Saturation ABG O2 Content ABG Base Excess ABG Hemoglobin ABG Carboxyhemoglobin POC ABG HHb (Measured) ABG Methemoglobin ABG O2 Capacity Hgb O2 Saturation FiO2 Sodium 160 H* Potassium 3.7 Chloride 125 H D Carbon Dioxide 24 Anion Gap 15 BUN 31 H Creatinine 0.9 Est GFR ( Amer) > 60 Est GFR (Non-Af Amer) > 60 POC Glucose (mg/dL) 114 H Random Glucose 98 Calcium 9.1 Phosphorus 3.4 Magnesium 2.1 Total Bilirubin 0.3 AST 22 ALT 35 Alkaline Phosphatase 90 Total Protein 6.4 Albumin 3.3 Globulin 3.1 Albumin/Globulin Ratio 1.1 08/03/17 08/03/17 08/03/17 07:09 08:19 09:22 WBC RBC Hgb Hct MCV MCH MCHC RDW Plt Count MPV Gran % Lymph % (Auto) Carbon % (Auto) Eos % (Auto) Baso % (Auto) Gran # Lymph # Carbon # Eos # Baso # pCO2 pO2 HCO3 ABG pH ABG Total CO2 ABG O2 Saturation ABG O2 Content ABG Base Excess ABG Hemoglobin ABG Carboxyhemoglobin POC ABG HHb (Measured) ABG Methemoglobin ABG O2 Capacity Hgb O2 Saturation FiO2 Sodium Potassium Chloride Carbon Dioxide Anion Gap BUN Creatinine Est GFR ( Amer) Est GFR (Non-Af Amer) POC Glucose (mg/dL) 152 H 145 H 135 H Random Glucose Calcium Phosphorus Magnesium Total Bilirubin AST ALT Alkaline Phosphatase Total Protein Albumin Globulin Albumin/Globulin Ratio 08/03/17 08/03/17 08/03/17 09:54 11:28 12:39 WBC RBC Hgb Hct MCV MCH MCHC RDW Plt Count MPV Gran % Lymph % (Auto) [place] % (Auto) Eos % (Auto) Baso % (Auto) Gran # Lymph # [place] # Eos # Baso # pCO2 pO2 HCO3 ABG pH ABG Total CO2 ABG O2 Saturation ABG O2 Content ABG Base Excess ABG Hemoglobin ABG Carboxyhemoglobin POC ABG HHb (Measured) ABG Methemoglobin ABG O2 Capacity Hgb O2 Saturation FiO2 Sodium Potassium Chloride Carbon Dioxide Anion Gap BUN Creatinine Est GFR ( Amer) Est GFR (Non-Af Amer) POC Glucose (mg/dL) 122 H 85 92 Random Glucose Calcium Phosphorus Magnesium Total Bilirubin AST ALT Alkaline Phosphatase Total Protein Albumin Globulin Albumin/Globulin Ratio 08/03/17 08/03/17 14:17 14:51 WBC RBC Hgb Hct MCV MCH MCHC RDW Plt Count MPV Gran % Lymph % (Auto) [place] % (Auto) Eos % (Auto) Baso % (Auto) Gran # Lymph # [place] # Eos # Baso # pCO2 pO2 HCO3 ABG pH ABG Total CO2 ABG O2 Saturation ABG O2 Content ABG Base Excess ABG Hemoglobin ABG Carboxyhemoglobin POC ABG HHb (Measured) ABG Methemoglobin ABG O2 Capacity Hgb O2 Saturation FiO2 Sodium Potassium Chloride Carbon Dioxide Anion Gap BUN Creatinine Est GFR ( Amer) Est GFR (Non-Af Amer) POC Glucose (mg/dL) 109 143 H Random Glucose Calcium Phosphorus Magnesium Total Bilirubin AST ALT Alkaline Phosphatase Total Protein Albumin Globulin Albumin/Globulin Ratio Critical Care Progress Note - Nutrition Nutrition: Nutrition Category Date Time Status NPO Diet [DIET] Diets 08/01/17 Lunch Ordered Attending/Attestation - Attestation I have personally seen and examined this patient.: Yes I have fully participated in the care of the patient.: Yes I have reviewed all pertinent clinical information: Yes Notes (Text): 08/03/17 16:31 67 y/o F w/ R brain mass w/ hemmoragic conversion Port removed today . Repeat blood cx ordered. On abx for gram + cocci Plan to extuabte to BIPAP today and transition to NC. DNR/DNI Palliative care following closely. dvt P SCD PPi cc time 45 min
--- NOTE | 2017-08-03 14:37 | CP.PCM.PN ---
<Kenan Thurman - Last Filed: 08/03/17 16:48> Subjective - Date & Time of Evaluation Date of Evaluation: 08/03/17 Time of Evaluation: 09:00 - Subjective Subjective: Neurology Progress Note for Dr. Giang Service Patient seen and examined at bedside. No acute events reported overnight. Patient remains intubated but awake, with spontaneous movements of R extremities. Later in the afternoon, patient was extubated to BiPAP, tolerating well. Resting but easily arousable, following most commands as able. Objective - Vital Signs/Intake and Output Vital Signs (last 24 hours): Temp Pulse Resp BP Pulse Ox 98.8 F 97 H 31 H 150/57 L 96 08/03/17 14:00 08/03/17 14:00 08/03/17 14:00 08/03/17 13:01 08/03/17 14:00 Intake and Output: 08/03/17 08/03/17 06:59 18:59 Intake Total 2362.5 81.5 Output Total 1900 Balance 462.5 81.5 - Medications Medications: Current Medications Dexamethasone (Decadron Inj) 10 mg IVP Q6 [facility] Last Admin: 08/03/17 12:25 Dose: 10 mg Levetiracetam (Keppra 500mg Ivpb) 500 mg in 100 mls @ 460 mls/hr IVPB Q12 [facility] Last Admin: 08/03/17 11:07 Dose: 460 mls/hr Insulin Human Regular 100 (units/ Sodium Chloride) 100 mls @ 5 mls/hr IV .Q20H PRN; Protocol; 5 UNITS/HR PRN Reason: TITRATE PER MD ORDER Last Admin: 08/03/17 11:29 Dose: 1.5 units/hr, 1.5 mls/hr Propofol (Diprivan) 1,000 mg in 100 mls @ 3.239 mls/hr IV .Q24H PRN; Protocol; 5 MCG/KG/MIN PRN Reason: Agitation Last Admin: 08/03/17 01:11 Dose: 9.3 mcg/kg/min, 6.024 mls/hr Sodium Chloride (Hypertonic Saline 3%) 500 mls @ 50 mls/hr IV .Q10H [facility] Last Admin: 08/03/17 01:56 Dose: 50 mls/hr Vancomycin HCl (Vancomycin 1gm) 1 gm in 250 mls @ 167 mls/hr IVPB Q12H [facility] PRN Reason: Protocol Last Admin: 08/03/17 12:19 Dose: 167 mls/hr Aztreonam (Azactam 1 Gm) 100 mls @ 100 mls/hr IVPB Q8 [facility] PRN Reason: Protocol Last Admin: 08/03/17 05:17 Dose: 100 mls/hr Insulin Human Regular (Humulin R Med) 0 units SC Q4H [facility] PRN Reason: Protocol Last Admin: 08/01/17 09:33 Dose: 8 units Nystatin/Triamcinolone Acetonide (Nystatin/Triamcinolone Cream) 1 ea TOP BID PRN PRN Reason: Excoriation Pantoprazole Sodium (Protonix Inj) 40 mg IVP DAILY [facility] Last Admin: 08/03/17 11:15 Dose: 40 mg - Labs Labs: 08/03/17 06:30 08/03/17 06:30 PT 10.5 Seconds (9.9-11.8) 08/01/17 08:20 INR 0.97 (0.93-1.08) 08/01/17 08:20 APTT 27.3 Seconds (23.7-30.8) 08/01/17 08:20 - Additional Findings Additional findings: - Constitutional Appears: No Acute Distress, Chronically Ill, Extubated, Resting but easily arousable - Head Exam Head Exam: ATRAUMATIC, NORMAL INSPECTION, NORMOCEPHALIC - Eye Exam Eye Exam: Normal appearance, PERRL. absent: Conjunctival injection, Scleral icterus Pupil Exam: PERLL, Normal Accommodation. absent: Irregular, Unequal - ENT Exam ENT Exam: Extubated. absent: Mucous Membranes Dry - Neck Exam Neck exam: Negative for: Lymphadenopathy, Thyromegaly - Respiratory Exam Respiratory Exam: Decreased breath sounds in all carl, but otherwise clear to ausculation bilaterally. absent: Accessory Muscle Use, Chest Wall Tenderness, Rales, Rhonchi, Wheezes - Cardiovascular Exam Cardiovascular Exam: REGULAR RHYTHM, RRR, +S1, +S2. absent: Bradycardia, Tachycardia, Irregular Rhythm, JVD, +S4 - GI/Abdominal Exam GI & Abdominal Exam: Normal Bowel Sounds, Soft. absent: Distended, Firm, Rigid - Extremities Exam Extremities exam: Positive for: pedal pulses present. 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 As per Neurosurgery, no acute surgical intervention at this time, as this is 2/ 2 malignant metastatic mass with poor prognosis, and surgery would not likely be helpful, as patient is at high risk for immediate morbidity. Continue medical management for now; strict BP, BG, and temperature control with sodium goal of 150. Patient is now DNR/DNI. Plan: 1) Sodium goal 140-150; 160 this AM is too high, would recommend holding hypertonic saline for now and reassessing 2) Maintain Blood glucose 140-180 3) Maintain normothermia 4) Head of bed to 30 degrees for aspiration precaution 5) Additional medical management as per ICU 6) Speech/swallow assessment now that extubated Patient reviewed and discussed with attending, Dr. Giang. <Jovani Giang - Last Filed: 08/04/17 10:17> Objective - Vital Signs/Intake and Output Vital Signs (last 24 hours): Temp Pulse Resp BP Pulse Ox 98.4 F 49 L 23 158/64 H 92 L 08/04/17 06:01 08/04/17 07:46 08/04/17 06:01 08/04/17 06:01 08/04/17 06:01 Intake and Output: 08/04/17 08/04/17 06:59 18:59 Intake Total 9 Balance 9 - Medications Medications: Current Medications Dexamethasone (Decadron Inj) 10 mg IVP Q6 [facility] Last Admin: 08/04/17 05:24 Dose: 10 mg Levetiracetam (Keppra 500mg Ivpb) 500 mg in 100 mls @ 460 mls/hr IVPB Q12 [facility] Last Admin: 08/04/17 10:14 Dose: 460 mls/hr Insulin Human Regular 100 (units/ Sodium Chloride) 100 mls @ 5 mls/hr IV .Q20H PRN; Protocol; 5 UNITS/HR PRN Reason: TITRATE PER MD ORDER Last Titration: 08/03/17 20:12 Dose: 7 units/hr, 7 mls/hr Sodium Chloride (Hypertonic Saline 3%) 500 mls @ 50 mls/hr IV .Q10H [facility] Last Admin: 08/03/17 18:38 Dose: Not Given Vancomycin HCl (Vancomycin 1gm) 1 gm in 250 mls @ 167 mls/hr IVPB Q12H [facility] PRN Reason: Protocol Last Admin: 08/04/17 05:22 Dose: 167 mls/hr Aztreonam (Azactam 1 Gm) 100 mls @ 100 mls/hr IVPB Q8 [facility] PRN Reason: Protocol Last Admin: 08/04/17 05:23 Dose: 100 mls/hr Acetaminophen (Ofirmev) 1,000 mg in 100 mls @ 400 mls/hr IVPB Q6H PRN PRN Reason: Pain, moderate (4-7) Stop: 08/05/17 17:42 Last Admin: 08/03/17 18:07 Dose: 400 mls/hr Insulin Human Regular (Humulin R Low) 0 units SC Q6H [facility] PRN Reason: Protocol Last Admin: 08/04/17 08:14 Dose: 3 units Nystatin/Triamcinolone Acetonide (Nystatin/Triamcinolone Cream) 1 ea TOP BID PRN PRN Reason: Excoriation Pantoprazole Sodium (Protonix Inj) 40 mg IVP DAILY [facility] Last Admin: 08/04/17 10:13 Dose: 40 mg - Labs Labs: 08/04/17 05:30 08/04/17 05:30 PT 10.5 Seconds (9.9-11.8) 08/01/17 08:20 INR 0.97 (0.93-1.08) 08/01/17 08:20 APTT 27.3 Seconds (23.7-30.8) 08/01/17 08:20 Attending/Attestation - Attestation I have personally seen and examined this patient.: Yes I have fully participated in the care of the patient.: Yes I have reviewed all pertinent clinical information, including history, physical exam and plan: Yes
--- NOTE | 2017-08-03 14:57 | CP.PCM.CON ---
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 She was intubated for airway protection. MRI of brain acute right posterior fronatl/parietal lobe hemorrhage , moderate to large edema surrounding the hemorrhage resulting in mass effect on lateral ventricle with 14 mm R>L midline shift. PMHx: HTN, DM, uterine cancer mastic to brain, s/p hysterectomy,s/p chemo and radiation therapy, DM, HTN,HLD. Social History: Non smoker, no alcohol or drug use. resides with spouse. Family History: Noncontributory Advance Care Planning: The patient does not have an Advance Directive. Review of Systems: As per HPI, limited review as patient is intubated with altered mental status Past Patient History - Infectious Disease Hx of Infectious Diseases: None - Past Medical History & Family History Past Medical History?: Yes - Past Social History Smoking Status: Never Smoked - CARDIAC Hx Cardiac Disorders: Yes Hx Hypertension: Yes - PULMONARY Hx Respiratory Disorders: No Hx Asthma: No (didn't mention) - NEUROLOGICAL Hx Neurological Disorder: No Hx Seizures: No Hx Syncope: No - HEENT Hx HEENT Problems: Yes Hx Cataracts: Yes - RENAL Hx Chronic Kidney Disease: No - ENDOCRINE/METABOLIC Hx Diabetes Mellitus Type 2: Yes - HEMATOLOGICAL/ONCOLOGICAL Hx Blood Disorders: Yes Hx Cancer: Yes (uterine ) Hx Chemotherapy: Yes Other/Comment: Uterus cancer- last cheml in february 2017 - INTEGUMENTARY Hx Dermatological Problems: No - MUSCULOSKELETAL/RHEUMATOLOGICAL Hx Musculoskeletal Disorders: Yes Hx Falls: Yes - GASTROINTESTINAL Hx Gastrointestinal Disorders: No - GENITOURINARY/GYNECOLOGICAL Hx Genitourinary Disorders: No - PSYCHIATRIC Hx Psychophysiologic Disorder: No Hx Substance Use: No - SURGICAL HISTORY Hx Cholecystectomy: Yes Hx Hysterectomy: Yes - ANESTHESIA Hx Anesthesia: Yes Hx Anesthesia Reactions: No Hx Malignant Hyperthermia: No Meds Allergies/Adverse Reactions: Allergies Allergy/AdvReac Type Severity Reaction Status Date / Time Penicillins Allergy ANGIOEDEMA Verified 07/19/17 18:41 - Medications Medications: Current Medications Dexamethasone (Decadron Inj) 10 mg IVP Q6 [facility]ANIA Last Admin: 08/03/17 12:25 Dose: 10 mg Levetiracetam (Keppra 500mg Ivpb) 500 mg in 100 mls @ 460 mls/hr IVPB Q12 [facility] Last Admin: 08/03/17 11:07 Dose: 460 mls/hr Insulin Human Regular 100 (units/ Sodium Chloride) 100 mls @ 5 mls/hr IV .Q20H PRN; Protocol; 5 UNITS/HR PRN Reason: TITRATE PER MD ORDER Last Admin: 08/03/17 11:29 Dose: 1.5 units/hr, 1.5 mls/hr Propofol (Diprivan) 1,000 mg in 100 mls @ 3.239 mls/hr IV .Q24H PRN; Protocol; 5 MCG/KG/MIN PRN Reason: Agitation Last Admin: 08/03/17 01:11 Dose: 9.3 mcg/kg/min, 6.024 mls/hr Sodium Chloride (Hypertonic Saline 3%) 500 mls @ 50 mls/hr IV .Q10H [facility] Last Admin: 08/03/17 01:56 Dose: 50 mls/hr Vancomycin HCl (Vancomycin 1gm) 1 gm in 250 mls @ 167 mls/hr IVPB Q12H [facility] PRN Reason: Protocol Last Admin: 08/03/17 12:19 Dose: 167 mls/hr Aztreonam (Azactam 1 Gm) 100 mls @ 100 mls/hr IVPB Q8 [facility] PRN Reason: Protocol Last Admin: 08/03/17 05:17 Dose: 100 mls/hr Insulin Human Regular (Humulin R Med) 0 units SC Q4H [facility] PRN Reason: Protocol Last Admin: 08/01/17 09:33 Dose: 8 units Nystatin/Triamcinolone Acetonide (Nystatin/Triamcinolone Cream) 1 ea TOP BID PRN PRN Reason: Excoriation Pantoprazole Sodium (Protonix Inj) 40 mg IVP DAILY [facility] Last Admin: 08/03/17 11:15 Dose: 40 mg Physical Exam - Constitutional Appears: Chronically Ill - Head Exam Additional comments: s/p right craniotomy - ENT Exam ENT Exam: Mucous Membranes Moist - Respiratory Exam Respiratory Exam: Clear to Auscultation Bilateral, NORMAL BREATHING PATTERN - Cardiovascular Exam Cardiovascular Exam: REGULAR RHYTHM, +S1, +S2 - GI/Abdominal Exam GI & Abdominal Exam: Normal Bowel Sounds, Soft - Extremities Exam Extremities exam: Positive for: pedal pulses present Additional comments: left sided weakness - Neurological Exam Neurological exam: Altered - Skin Skin Exam: Dry, Warm - Additional Findings Additional findings: Palliative performance scale rating 20% Results - Vital Signs Recent Vital Signs: Last Vital Signs Temp 98.8 F 08/03/17 14:00 Pulse 97 H 08/03/17 14:00 Resp 31 H 08/03/17 14:00 BP 150/57 L 08/03/17 13:01 Pulse Ox 96 08/03/17 14:00 - Labs Result Diagrams: 08/03/17 06:30 08/03/17 06:30 Labs: Laboratory Results - last 24 hr 08/02/17 08/02/17 08/02/17 15:21 17:22 17:29 WBC RBC Hgb Hct MCV MCH MCHC RDW Plt Count MPV Gran % Lymph % (Auto) [place] % (Auto) Eos % (Auto) Baso % (Auto) Gran # Lymph # [place] # Eos # Baso # pCO2 pO2 HCO3 ABG pH ABG Total CO2 ABG O2 Saturation ABG O2 Content ABG Base Excess ABG Hemoglobin ABG Carboxyhemoglobin POC ABG HHb (Measured) ABG Methemoglobin ABG O2 Capacity Hgb O2 Saturation FiO2 Sodium Potassium Chloride Carbon Dioxide Anion Gap BUN Creatinine Est GFR ( Amer) Est GFR (Non-Af Amer) POC Glucose (mg/dL) 134 H 141 H 150 H Random Glucose Calcium Phosphorus Magnesium Total Bilirubin AST ALT Alkaline Phosphatase Total Protein Albumin Globulin Albumin/Globulin Ratio 08/02/17 08/02/17 08/02/17 18:14 19:05 19:52 WBC RBC Hgb Hct MCV MCH MCHC RDW Plt Count MPV Gran % Lymph % (Auto) [place] % (Auto) Eos % (Auto) Baso % (Auto) Gran # Lymph # [place] # Eos # Baso # pCO2 pO2 HCO3 ABG pH ABG Total CO2 ABG O2 Saturation ABG O2 Content ABG Base Excess ABG Hemoglobin ABG Carboxyhemoglobin POC ABG HHb (Measured) ABG Methemoglobin ABG O2 Capacity Hgb O2 Saturation FiO2 Sodium Potassium Chloride Carbon Dioxide Anion Gap BUN Creatinine Est GFR ( Amer) Est GFR (Non-Af Amer) POC Glucose (mg/dL) 158 H 146 H 139 H Random Glucose Calcium Phosphorus Magnesium Total Bilirubin AST ALT Alkaline Phosphatase Total Protein Albumin Globulin Albumin/Globulin Ratio 08/02/17 08/02/17 08/02/17 21:13 22:04 23:05 WBC RBC Hgb Hct MCV MCH MCHC RDW Plt Count MPV Gran % Lymph % (Auto) [place] % (Auto) Eos % (Auto) Baso % (Auto) Gran # Lymph # [place] # Eos # Baso # pCO2 pO2 HCO3 ABG pH ABG Total CO2 ABG O2 Saturation ABG O2 Content ABG Base Excess ABG Hemoglobin ABG Carboxyhemoglobin POC ABG HHb (Measured) ABG Methemoglobin ABG O2 Capacity Hgb O2 Saturation FiO2 Sodium Potassium Chloride Carbon Dioxide Anion Gap BUN Creatinine Est GFR ( Amer) Est GFR (Non-Af Amer) POC Glucose (mg/dL) 124 H 122 H 116 H Random Glucose Calcium Phosphorus Magnesium Total Bilirubin AST ALT Alkaline Phosphatase Total Protein Albumin Globulin Albumin/Globulin Ratio 08/03/17 08/03/17 08/03/17 00:05 00:58 01:53 WBC RBC Hgb Hct MCV MCH MCHC RDW Plt Count MPV Gran % Lymph % (Auto) [place] % (Auto) Eos % (Auto) Baso % (Auto) Gran # Lymph # [place] # Eos # Baso # pCO2 pO2 HCO3 ABG pH ABG Total CO2 ABG O2 Saturation ABG O2 Content ABG Base Excess ABG Hemoglobin ABG Carboxyhemoglobin POC ABG HHb (Measured) ABG Methemoglobin ABG O2 Capacity Hgb O2 Saturation FiO2 Sodium Potassium Chloride Carbon Dioxide Anion Gap BUN Creatinine Est GFR ( Amer) Est GFR (Non-Af Amer) POC Glucose (mg/dL) 94 109 176 H Random Glucose Calcium Phosphorus Magnesium Total Bilirubin AST ALT Alkaline Phosphatase Total Protein Albumin Globulin Albumin/Globulin Ratio 08/03/17 08/03/17 08/03/17 03:08 04:15 05:12 WBC RBC Hgb Hct MCV MCH MCHC RDW Plt Count MPV Gran % Lymph % (Auto) [place] % (Auto) Eos % (Auto) Baso % (Auto) Gran # Lymph # [place] # Eos # Baso # pCO2 34 L pO2 141.0 H HCO3 23.1 ABG pH 7.44 ABG Total CO2 24.1 ABG O2 Saturation 100.3 H ABG O2 Content 10.8 L ABG Base Excess -0.8 ABG Hemoglobin 7.7 L ABG Carboxyhemoglobin 2.4 H POC ABG HHb (Measured) -0.3 L ABG Methemoglobin 1.0 ABG O2 Capacity 10.8 L Hgb O2 Saturation 97.0 FiO2 40.0 Sodium Potassium Chloride Carbon Dioxide Anion Gap BUN Creatinine Est GFR ( Amer) Est GFR (Non-Af Amer) POC Glucose (mg/dL) 158 H 119 H Random Glucose Calcium Phosphorus Magnesium Total Bilirubin AST ALT Alkaline Phosphatase Total Protein Albumin Globulin Albumin/Globulin Ratio 08/03/17 08/03/17 08/03/17 05:16 06:01 06:30 WBC 15.1 H RBC 2.92 L Hgb 8.3 L Hct 27.0 L MCV 92.5 MCH 28.4 MCHC 30.7 L RDW 13.5 Plt Count 197 MPV 9.5 Gran % 92.3 H Lymph % (Auto) 4.0 L [place] % (Auto) 3.7 Eos % (Auto) 0.0 L Baso % (Auto) 0.0 Gran # 13.95 H Lymph # 0.6 L [place] # 0.6 Eos # 0.0 Baso # 0.00 pCO2 pO2 HCO3 ABG pH ABG Total CO2 ABG O2 Saturation ABG O2 Content ABG Base Excess ABG Hemoglobin ABG Carboxyhemoglobin POC ABG HHb (Measured) ABG Methemoglobin ABG O2 Capacity Hgb O2 Saturation FiO2 Sodium Potassium Chloride Carbon Dioxide Anion Gap BUN Creatinine Est GFR ( Amer) Est GFR (Non-Af Amer) POC Glucose (mg/dL) 103 114 H Random Glucose Calcium Phosphorus Magnesium Total Bilirubin AST ALT Alkaline Phosphatase Total Protein Albumin Globulin Albumin/Globulin Ratio 08/03/17 08/03/17 08/03/17 06:30 07:09 08:19 WBC RBC Hgb Hct MCV MCH MCHC RDW Plt Count MPV Gran % Lymph % (Auto) [place] % (Auto) Eos % (Auto) Baso % (Auto) Gran # Lymph # [place] # Eos # Baso # pCO2 pO2 HCO3 ABG pH ABG Total CO2 ABG O2 Saturation ABG O2 Content ABG Base Excess ABG Hemoglobin ABG Carboxyhemoglobin POC ABG HHb (Measured) ABG Methemoglobin ABG O2 Capacity Hgb O2 Saturation FiO2 Sodium 160 H* Potassium 3.7 Chloride 125 H D Carbon Dioxide 24 Anion Gap 15 BUN 31 H Creatinine 0.9 Est GFR ( Amer) > 60 Est GFR (Non-Af Amer) > 60 POC Glucose (mg/dL) 152 H 145 H Random Glucose 98 Calcium 9.1 Phosphorus 3.4 Magnesium 2.1 Total Bilirubin 0.3 AST 22 ALT 35 Alkaline Phosphatase 90 Total Protein 6.4 Albumin 3.3 Globulin 3.1 Albumin/Globulin Ratio 1.1 08/03/17 08/03/17 08/03/17 09:22 09:54 11:28 WBC RBC Hgb Hct MCV MCH MCHC RDW Plt Count MPV Gran % Lymph % (Auto) [place] % (Auto) Eos % (Auto) Baso % (Auto) Gran # Lymph # [place] # Eos # Baso # pCO2 pO2 HCO3 ABG pH ABG Total CO2 ABG O2 Saturation ABG O2 Content ABG Base Excess ABG Hemoglobin ABG Carboxyhemoglobin POC ABG HHb (Measured) ABG Methemoglobin ABG O2 Capacity Hgb O2 Saturation FiO2 Sodium Potassium Chloride Carbon Dioxide Anion Gap BUN Creatinine Est GFR ( Amer) Est GFR (Non-Af Amer) POC Glucose (mg/dL) 135 H 122 H 85 Random Glucose Calcium Phosphorus Magnesium Total Bilirubin AST ALT Alkaline Phosphatase Total Protein Albumin Globulin Albumin/Globulin Ratio 08/03/17 08/03/17 12:39 14:17 WBC RBC Hgb Hct MCV MCH MCHC RDW Plt Count MPV Gran % Lymph % (Auto) [place] % (Auto) Eos % (Auto) Baso % (Auto) Gran # Lymph # [place] # Eos # Baso # pCO2 pO2 HCO3 ABG pH ABG Total CO2 ABG O2 Saturation ABG O2 Content ABG Base Excess ABG Hemoglobin ABG Carboxyhemoglobin POC ABG HHb (Measured) ABG Methemoglobin ABG O2 Capacity Hgb O2 Saturation FiO2 Sodium Potassium Chloride Carbon Dioxide Anion Gap BUN Creatinine Est GFR ( Amer) Est GFR (Non-Af Amer) POC Glucose (mg/dL) 92 109 Random Glucose Calcium Phosphorus Magnesium Total Bilirubin AST ALT Alkaline Phosphatase Total Protein Albumin Globulin Albumin/Globulin Ratio Assessment & Plan - Assessment and Plan (Free Text) Assessment: 67 year old female with 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 Patient's family at bedside. All members having a very difficult time accepting the gravity of patients illness. Multiple family members expressing concern and wanting to have input in deciding goals of care. I explained that ultimately it is the patients who is the decision maker. Benefits and burdens of aggressive interventions explained to and sons. Psychosocial support given. Time spent in goals of care discussion, 30 minutes Plan: Palliative counseling and support Advance care planning
--- NOTE | 2017-08-03 15:43 | CP.PCM.PN ---
Subjective - Date & Time of Evaluation Date of Evaluation: 08/03/17 Time of Evaluation: 15:00 - Subjective Subjective: Infectious Disease Follow Up: August 03, 2017 67 [place] [facility]. The patient had symptoms of nausea, vomiting, headaches, emesis, and increasing obtunded state. She was [place] [facility] after admission for L-sided weakness and falls, in which she was found to have a 5.1x3.5cm cystic mass in the R parietal lobe, for which she underwent craniotomy and excisional biopsy (07/25/17). CT head was obtained and notable for new onset large elliptical-shaped hemorrhage in right frontoparietal lobe with surrounding edema and mass effect. Neurosurgery evaluated the patient and stated no surgical intervention at this time. The patient is intubated and ventilated. She is on Propofol as well. Leukocytosis slightly improved. One of the blood cultures is showing coagulase negative staph. Objective - Vital Signs/Intake and Output Vital Signs (last 24 hours): Temp Pulse Resp BP Pulse Ox 98.8 F 94 H 31 H 150/57 L 96 08/03/17 14:00 08/03/17 14:52 08/03/17 14:00 08/03/17 13:01 08/03/17 14:00 Intake and Output: 08/03/17 08/03/17 06:59 18:59 Intake Total 2362.5 81.5 Output Total 1900 Balance 462.5 81.5 - Medications Medications: Current Medications Dexamethasone (Decadron Inj) 10 mg IVP Q6 [facility] Last Admin: 08/03/17 12:25 Dose: 10 mg Levetiracetam (Keppra 500mg Ivpb) 500 mg in 100 mls @ 460 mls/hr IVPB Q12 [facility] Last Admin: 08/03/17 11:07 Dose: 460 mls/hr Insulin Human Regular 100 (units/ Sodium Chloride) 100 mls @ 5 mls/hr IV .Q20H PRN; Protocol; 5 UNITS/HR PRN Reason: TITRATE PER MD ORDER Last Admin: 08/03/17 11:29 Dose: 1.5 units/hr, 1.5 mls/hr Propofol (Diprivan) 1,000 mg in 100 mls @ 3.239 mls/hr IV .Q24H PRN; Protocol; 5 MCG/KG/MIN PRN Reason: Agitation Last Admin: 08/03/17 01:11 Dose: 9.3 mcg/kg/min, 6.024 mls/hr Sodium Chloride (Hypertonic Saline 3%) 500 mls @ 50 mls/hr IV .Q10H [facility] Last Admin: 08/03/17 01:56 Dose: 50 mls/hr Vancomycin HCl (Vancomycin 1gm) 1 gm in 250 mls @ 167 mls/hr IVPB Q12H [facility] PRN Reason: Protocol Last Admin: 08/03/17 12:19 Dose: 167 mls/hr Aztreonam (Azactam 1 Gm) 100 mls @ 100 mls/hr IVPB Q8 [facility] PRN Reason: Protocol Last Admin: 08/03/17 05:17 Dose: 100 mls/hr Insulin Human Regular (Humulin R Med) 0 units SC Q4H [facility] PRN Reason: Protocol Last Admin: 08/01/17 09:33 Dose: 8 units Nystatin/Triamcinolone Acetonide (Nystatin/Triamcinolone Cream) 1 ea TOP BID PRN PRN Reason: Excoriation Pantoprazole Sodium (Protonix Inj) 40 mg IVP DAILY [facility] Last Admin: 08/03/17 11:15 Dose: 40 mg - Labs Labs: 08/03/17 06:30 08/03/17 06:30 PT 10.5 Seconds (9.9-11.8) 08/01/17 08:20 INR 0.97 (0.93-1.08) 08/01/17 08:20 APTT 27.3 Seconds (23.7-30.8) 08/01/17 08:20 - Constitutional Appears: Chronically Ill, Other - Head Exam Additional comments: recent craniotomy. - Eye Exam Pupil Exam: Irregular Additional comments: pinpoint pupils - ENT Exam Additional comments: intubated and ventilated - Neck Exam Neck Exam: absent: Lymphadenopathy, Thyromegaly - Respiratory Exam Respiratory Exam: Decreased Breath Sounds. absent: Rhonchi, Wheezes - Cardiovascular Exam Cardiovascular Exam: REGULAR RHYTHM, RRR, +S1, +S2 - GI/Abdominal Exam GI & Abdominal Exam: Soft, Normal Bowel Sounds. absent: Distended, Tenderness - Extremities Exam Extremities Exam: Joint Swelling, Normal Inspection - Neurological Exam Additional comments: intubated, ventilated, sedated, poorly responsive. - Psychiatric Exam Additional comments: Unable to Access due to the patient's current medical condition. - Skin Skin Exam: Dry, Intact Assessment and Plan - Assessment and Plan (Free Text) Assessment: 67 yo female with extensive past medical history that includes Uterine Cancer with recent craniotomy 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 CT head notable for new onset large elliptical- shaped hemorrhage in right frontoparietal lobe with surrounding edema and mass effect. Brain MRI notable for interval appearance of foci of acute hemorrhage at the right posterior frontal/parietal lobe (consistent with hemorrhage seen on CT), and moderate to large edema surrounding the foci of hemorrhage resulting in mass effect on the lateral ventricle and approximately 14 millimeter [id number] midline shift. Neurosurgery feels this is malignant metastatic mass with poor prognosis, and surgery would not likely be helpful, as patient is at high risk for immediate morbidity There is leukocytosis although this is likely due to the large CVA. Blood cultures were noted to be showing gram positive cocci in clusters. The could be Staph Aureus but can be other potential skin organisms. One culture is showing coagulase negative staph. Continue on Vancomycin and Aztreonam for now. Supportive care. Await final culture. The patient has a dismal prognosis at this time. Thank you for allowing me to participate in the care of the panient, we will follow with you.
--- NOTE | 2017-08-03 15:56 | CP.PCM.PN ---
Subjective - Date & Time of Evaluation Date of Evaluation: 08/03/17 Time of Evaluation: 15:53 - Subjective Subjective: General Surgery Progress Note for DR. Schafer PT S&E at bedside. PRITESH. Patient had port removed today. No complications. Patient is sedated on propofol. unable to obtain more information from patient. Objective - Vital Signs/Intake and Output Vital Signs (last 24 hours): Temp Pulse Resp BP Pulse Ox 98.8 F 94 H 31 H 150/57 L 96 08/03/17 14:00 08/03/17 14:52 08/03/17 14:00 08/03/17 13:01 08/03/17 14:00 Intake and Output: 08/03/17 08/03/17 06:59 18:59 Intake Total 2362.5 81.5 Output Total 1900 Balance 462.5 81.5 - Medications Medications: Current Medications Dexamethasone (Decadron Inj) 10 mg IVP Q6 [facility] Last Admin: 08/03/17 12:25 Dose: 10 mg Levetiracetam (Keppra 500mg Ivpb) 500 mg in 100 mls @ 460 mls/hr IVPB Q12 [facility] Last Admin: 08/03/17 11:07 Dose: 460 mls/hr Insulin Human Regular 100 (units/ Sodium Chloride) 100 mls @ 5 mls/hr IV .Q20H PRN; Protocol; 5 UNITS/HR PRN Reason: TITRATE PER MD ORDER Last Admin: 08/03/17 11:29 Dose: 1.5 units/hr, 1.5 mls/hr Propofol (Diprivan) 1,000 mg in 100 mls @ 3.239 mls/hr IV .Q24H PRN; Protocol; 5 MCG/KG/MIN PRN Reason: Agitation Last Admin: 08/03/17 01:11 Dose: 9.3 mcg/kg/min, 6.024 mls/hr Sodium Chloride (Hypertonic Saline 3%) 500 mls @ 50 mls/hr IV .Q10H [facility] Last Admin: 08/03/17 01:56 Dose: 50 mls/hr Vancomycin HCl (Vancomycin 1gm) 1 gm in 250 mls @ 167 mls/hr IVPB Q12H [facility] PRN Reason: Protocol Last Admin: 08/03/17 12:19 Dose: 167 mls/hr Aztreonam (Azactam 1 Gm) 100 mls @ 100 mls/hr IVPB Q8 [facility] PRN Reason: Protocol Last Admin: 08/03/17 05:17 Dose: 100 mls/hr Insulin Human Regular (Humulin R Med) 0 units SC Q4H [facility] PRN Reason: Protocol Last Admin: 08/01/17 09:33 Dose: 8 units Nystatin/Triamcinolone Acetonide (Nystatin/Triamcinolone Cream) 1 ea TOP BID PRN PRN Reason: Excoriation Pantoprazole Sodium (Protonix Inj) 40 mg IVP DAILY [facility] Last Admin: 08/03/17 11:15 Dose: 40 mg - Labs Labs: 08/03/17 06:30 08/03/17 06:30 PT 10.5 Seconds (9.9-11.8) 08/01/17 08:20 INR 0.97 (0.93-1.08) 08/01/17 08:20 APTT 27.3 Seconds (23.7-30.8) 08/01/17 08:20 - Constitutional Appears: Non-toxic - Head Exam Head Exam: NORMAL INSPECTION - Eye Exam Eye Exam: Normal appearance Additional comments: Patient is sedated. - ENT Exam ENT Exam: Mucous Membranes Moist - Neck Exam Neck Exam: Full ROM, Normal Inspection - Respiratory Exam Respiratory Exam: Clear to Ausculation Bilateral, NORMAL BREATHING PATTERN. absent: Accessory Muscle Use - Cardiovascular Exam Cardiovascular Exam: REGULAR RHYTHM. absent: Bradycardia, Tachycardia - GI/Abdominal Exam GI & Abdominal Exam: Soft, Hernia - Neurological Exam Neurological Exam: Alert, Awake, Oriented x3 - Psychiatric Exam Psychiatric exam: Normal Affect, Normal Mood - Skin Skin Exam: Dry, Intact, Normal Color, Warm Additional comments: port removed. incision site with dressings c/d/i Assessment and Plan - Assessment and Plan (Free Text) Assessment: 67F with history of endometrial cancer and metastatic disease presents with altered mental status and positive blood cultures for Gram positive cocci. Plan: Plan is to contact oncologist to determine need for further chemotherapy. Family to decide full code vs. DNR/DNI. monitor port removal site for signs of infection, induration, erythema, drainage , purulence c/w current medical management. c/w pain control d/w with Dr. Schafer. Susan Peguero DO PGY1
--- NOTE | 2017-08-03 16:20 | CP.PCM.PN ---
Subjective - Date & Time of Evaluation Date of Evaluation: 08/03/17 Time of Evaluation: 15:30 - Subjective Subjective: Infectious Disease Follow Up August 03, 2017 73 yo female presented with fall and altered mental status. She was found at home on floor by family who heard her fall. The patient was brought into the ER and found to be in uncontrolled hypertension and requiring intubation on arrival in the ER. The patient was found to hae a 4.4 cm left occipital intracranial hemorrhage with intraventricular extension. Patient is recovering but still having episodes of low grade fevers. Patient herself is not making any new complaints. She still has residual right sided weakness. Afebrile in the past 48 hours. Repeat cultures sent. Cannot rule out central fever. Cultures negative to date from sets taken on 07/28/2017 and 07/29/2017. Objective - Vital Signs/Intake and Output Vital Signs (last 24 hours): Temp Pulse Resp BP Pulse Ox 98.8 F 94 H 31 H 150/57 L 96 08/03/17 14:00 08/03/17 14:52 08/03/17 14:00 08/03/17 13:01 08/03/17 14:00 Intake and Output: 08/03/17 08/03/17 06:59 18:59 Intake Total 2362.5 81.5 Output Total 1900 Balance 462.5 81.5 - Medications Medications: Current Medications Dexamethasone (Decadron Inj) 10 mg IVP Q6 [facility] [place] Last Admin: 08/03/17 12:25 Dose: 10 mg Levetiracetam (Keppra 500mg Ivpb) 500 mg in 100 mls @ 460 mls/hr IVPB Q12 [facility] [place] Last Admin: 08/03/17 11:07 Dose: 460 mls/hr Insulin Human Regular 100 (units/ Sodium Chloride) 100 mls @ 5 mls/hr IV .Q20H PRN; Protocol; 5 UNITS/HR PRN Reason: TITRATE PER MD ORDER Last Admin: 08/03/17 11:29 Dose: 1.5 units/hr, 1.5 mls/hr Propofol (Diprivan) 1,000 mg in 100 mls @ 3.239 mls/hr IV .Q24H PRN; Protocol; 5 MCG/KG/MIN PRN Reason: Agitation Last Admin: 08/03/17 01:11 Dose: 9.3 mcg/kg/min, 6.024 mls/hr Sodium Chloride (Hypertonic Saline 3%) 500 mls @ 50 mls/hr IV .Q10H [facility] [place] Last Admin: 08/03/17 01:56 Dose: 50 mls/hr Vancomycin HCl (Vancomycin 1gm) 1 gm in 250 mls @ 167 mls/hr IVPB Q12H [facility] PRN Reason: Protocol Last Admin: 08/03/17 12:19 Dose: 167 mls/hr Aztreonam (Azactam 1 Gm) 100 mls @ 100 mls/hr IVPB Q8 [facility] PRN Reason: Protocol Last Admin: 08/03/17 05:17 Dose: 100 mls/hr Insulin Human Regular (Humulin R Med) 0 units SC Q4H [facility] PRN Reason: Protocol Last Admin: 08/01/17 09:33 Dose: 8 units Nystatin/Triamcinolone Acetonide (Nystatin/Triamcinolone Cream) 1 ea TOP BID PRN PRN Reason: Excoriation Pantoprazole Sodium (Protonix Inj) 40 mg IVP DAILY [facility] [place] Last Admin: 08/03/17 11:15 Dose: 40 mg - Labs Labs: 08/03/17 06:30 08/03/17 06:30 PT 10.5 Seconds (9.9-11.8) 08/01/17 08:20 INR 0.97 (0.93-1.08) 08/01/17 08:20 APTT 27.3 Seconds (23.7-30.8) 08/01/17 08:20 - Constitutional Appears: Non-toxic, No Acute Distress, Chronically Ill - Head Exam Head Exam: ATRAUMATIC, NORMOCEPHALIC - Eye Exam Eye Exam: EOMI, PERRL Pupil Exam: NORMAL ACCOMODATION, PERRL - ENT Exam ENT Exam: Mucous Membranes Moist, Normal External Ear Exam, TM's Normal Bilaterally - Neck Exam Neck Exam: Full ROM, Normal Inspection - Respiratory Exam Respiratory Exam: Clear to Ausculation Bilateral, NORMAL BREATHING PATTERN. absent: Rales, Rhonchi, Wheezes - Cardiovascular Exam Cardiovascular Exam: REGULAR RHYTHM, RRR, +S1, +S2 - GI/Abdominal Exam GI & Abdominal Exam: Soft, Tenderness, Normal Bowel Sounds. absent: Distended - Extremities Exam Extremities Exam: Pedal Edema Additional comments: right sided weakness - Neurological Exam Neurological Exam: Alert, Awake Additional comments: AAO x 2-3, right sided weakness. - Psychiatric Exam Psychiatric exam: Depressed, Normal Affect - Skin Skin Exam: Intact, Normal Color Assessment and Plan - Assessment and Plan (Free Text) Assessment: 73 yo female with low grade fevers of up to 100.4 F after suffering from a 4.4cm left occipital intracranial hemorrhage with intraventricular extension. The patient initially had fevers up to 101.7 F. Clinically, the patient has been improving. Supportive care. She was intubated on admission. She was extubated on 07/25/2017. She speaks surinamese mostly. The family states that the patient is acting and speaking appropriately other than the slurring of speech due to her right sided residual weakness. Alfredo cultures sent. There was a mild initial leukocytosis on admission but this has slowly improved. Fever trend has shown improvement. The cultures done to date have been negative so far. No consolidation seen on Chest X-ray. Patient answering question during interview and examination. Supportive care. Currently on Unasyn for antibiotic coverage. Noted C. Diff and repeat urine culture sent. No adequate sample for C. diff testing. Would obtain urinalysis. Would continue Unasyn for now. The current temperature is more likely secondary to the recent intracranial hemorrhage. Leukocytosis of 14.0 today but with a normal differential. Multiple culture sets performed to date are negative. Afebrile for the past 48 hours now. Cultures negative to date at greater than 48 hours. Cannot rule out central fever which is the most likely scenario. It appears as the hemorrhage improves the fevers are improving. Last CT done on 07/30/2017 showing interval evolution of known subacute hematoma in left occipital love withou midline shift or herniation. Resolving intraventricular hemorrhage with residual mild intraventricular hemorrhage. If fevers spike again to over 102, repeat blood and urine cultures. She remains on Cefepime for antibiotic coverage.
--- NOTE | 2017-08-03 16:43 | PCM.PROC ---
Procedure: Blank - Time Time Performed: 13:00 - Time Out Time Out: Side verified, Site verified, Patient ID confirmed, Sterile procedures obs. - Procedure Procedure:: PortaCath removal - Consent obtained: Consent obtained: Written - Performed by: Performed by:: Mid-level provider - Contraindications: Contraindications:: None - Anesthetic Technique Anesthetic Technique: Local - Topical: Local/Regional Anesthetic:: Lidocaine 1% - Patient Position Patient Position:: Supine - Location Location: Left, Chest - Needle Size Needle Size:: 25gauge - Description Discription of Procedure: 08/03/17 - Result Result: Successful - Post-Procedure Post-procedure:: Hemostasis achieved, Dressing applied - Patient Tolerated Procedure Patient Tolerated Procedure:: Well
--- NOTE | 2017-08-03 18:25 | CP.PCM.PCO ---
<NGUYEN CARREON - Last Filed: 08/03/17 18:16> Physician Communication Note - Physician Communication Note Physician Communication Note: Patient was rescinded from DNR/DNI to full code status per family request. Addendum Addendum: 08/03/17 18:18 Patients requested to speak to medical team about his recent decision to make his DNR/DNI. He states that in hindsight he should have spoken with his entire family prior to making this decision and now that he has spoken to all of his sons and extended family, he would like to rescind his previous code status change and make his full code. It was explained to the patients what the differences were between the two statuses in detail as well as patients prognosis, given her recent diagnosis of metastatic cancer. After this discussion, patient requested that we rescind his previous order to make his DNR/DNI and that she officially be full code status. Previous paperwork was removed from patients chart, orders were changed in the computer and patients nursing staff was made aware of this decision. <Fausto DIETRICH,Yariel Gonzalez - Last Filed: 08/04/17 14:30> Attending/Attestation - Attestation I have personally seen and examined this patient.: Yes I have fully participated in the care of the patient.: Yes I have reviewed all pertinent clinical information: Yes Notes (Text): 08/04/17 14:26 67 y/o F w/ AMS with R brain mass and bleed post op. Intubated , and extubated to [place] . Protecting airway . Off decadron and 3% NS. NSG has no plans for intervention. Family meeting was done and family changed DNR DNI to full code. Brain mass cytology shows Uterine source. cc time 45 min
--- NOTE | 2017-08-03 19:03 | CP.PCM.CON ---
History of Present Illness - History of Present Illness History of Present Illness: 67 year old female with a history of uterine cancer, diagnosd 3 years ago, s/p FITO-BSO, radiation and chemotherapy (last treated about 3 months ago), brain metastasis diagnosed at [facility] s/p open biopsy, admitted with brain hemorrhage. The patient was recently admitted to [facility] with progressive left sided weakness over 1 week and found to have a brain mass. CT C/A/P was negative for metastasis and imaging of the brain revealed an isolated brain mass which was found to be consistent with her uterine cancer. Past medical history: Uterine cancer Past surgical history: FITO-BSO Family history: Mother had breast cancer Social history: Denies tobacco, alcohol, and illicit drug use. Allergies: Penicillins Review of systems: All remaining review of systems including HEENT, cardiovascular, respiratory, gastrointestinal, genitourinary, musculoskeletal, dermatologic, neurologic, and psychiatric are negative unless mentioned in the HPI. Past Patient History - Infectious Disease Hx of Infectious Diseases: None - Past Medical History & Family History Past Medical History?: Yes - Past Social History Smoking Status: Never Smoked - CARDIAC Hx Cardiac Disorders: Yes Hx Hypertension: Yes - PULMONARY Hx Respiratory Disorders: No Hx Asthma: No (didn't mention) - NEUROLOGICAL Hx Neurological Disorder: No Hx Seizures: No Hx Syncope: No - HEENT Hx HEENT Problems: Yes Hx Cataracts: Yes - RENAL Hx Chronic Kidney Disease: No - ENDOCRINE/METABOLIC Hx Diabetes Mellitus Type 2: Yes - HEMATOLOGICAL/ONCOLOGICAL Hx Blood Disorders: Yes Hx Cancer: Yes (uterine ) Hx Chemotherapy: Yes Other/Comment: Uterus cancer- last cheml in february 2017 - INTEGUMENTARY Hx Dermatological Problems: No - MUSCULOSKELETAL/RHEUMATOLOGICAL Hx Musculoskeletal Disorders: Yes Hx Falls: Yes - GASTROINTESTINAL Hx Gastrointestinal Disorders: No - GENITOURINARY/GYNECOLOGICAL Hx Genitourinary Disorders: No - PSYCHIATRIC Hx Psychophysiologic Disorder: No Hx Substance Use: No - SURGICAL HISTORY Hx Cholecystectomy: Yes Hx Hysterectomy: Yes - ANESTHESIA Hx Anesthesia: Yes Hx Anesthesia Reactions: No Hx Malignant Hyperthermia: No Meds Allergies/Adverse Reactions: Allergies Allergy/AdvReac Type Severity Reaction Status Date / Time Penicillins Allergy ANGIOEDEMA Verified 07/19/17 18:41 - Medications Medications: Current Medications Dexamethasone (Decadron Inj) 10 mg IVP Q6 [facility] Last Admin: 08/03/17 18:04 Dose: 10 mg Levetiracetam (Keppra 500mg Ivpb) 500 mg in 100 mls @ 460 mls/hr IVPB Q12 [facility] Last Admin: 08/03/17 11:07 Dose: 460 mls/hr Insulin Human Regular 100 (units/ Sodium Chloride) 100 mls @ 5 mls/hr IV .Q20H PRN; Protocol; 5 UNITS/HR PRN Reason: TITRATE PER MD ORDER Last Admin: 08/03/17 18:55 Dose: 9 units/hr, 9 mls/hr Propofol (Diprivan) 1,000 mg in 100 mls @ 3.239 mls/hr IV .Q24H PRN; Protocol; 5 MCG/KG/MIN PRN Reason: Agitation Last Admin: 08/03/17 01:11 Dose: 9.3 mcg/kg/min, 6.024 mls/hr Sodium Chloride (Hypertonic Saline 3%) 500 mls @ 50 mls/hr IV .Q10H [facility] Last Admin: 08/03/17 18:38 Dose: Not Given Vancomycin HCl (Vancomycin 1gm) 1 gm in 250 mls @ 167 mls/hr IVPB Q12H [facility] PRN Reason: Protocol Last Admin: 08/03/17 12:19 Dose: 167 mls/hr Aztreonam (Azactam 1 Gm) 100 mls @ 100 mls/hr IVPB Q8 [facility] PRN Reason: Protocol Last Admin: 08/03/17 18:04 Dose: 100 mls/hr Acetaminophen (Ofirmev) 1,000 mg in 100 mls @ 400 mls/hr IVPB Q6H PRN PRN Reason: Pain, moderate (4-7) Stop: 08/05/17 17:42 Last Admin: 08/03/17 18:07 Dose: 400 mls/hr Insulin Human Regular (Humulin R Med) 0 units SC Q4H [facility] PRN Reason: Protocol Last Admin: 08/01/17 09:33 Dose: 8 units Nystatin/Triamcinolone Acetonide (Nystatin/Triamcinolone Cream) 1 ea TOP BID PRN PRN Reason: Excoriation Pantoprazole Sodium (Protonix Inj) 40 mg IVP DAILY [facility] Last Admin: 08/03/17 11:15 Dose: 40 mg Physical Exam - Head Exam Head Exam: ATRAUMATIC - Eye Exam Eye Exam: Normal appearance - ENT Exam ENT Exam: Mucous Membranes Dry - Respiratory Exam Respiratory Exam: NORMAL BREATHING PATTERN - Cardiovascular Exam Cardiovascular Exam: +S1, +S2 - GI/Abdominal Exam GI & Abdominal Exam: Normal Bowel Sounds - Extremities Exam Extremities exam: Positive for: pedal edema - Neurological Exam Neurological exam: Altered - Psychiatric Exam Psychiatric exam: Agitated - Skin Skin Exam: Warm Results - Vital Signs Recent Vital Signs: Last Vital Signs Temp 99.1 F 08/03/17 17:15 Pulse 84 08/03/17 17:15 Resp 30 H 08/03/17 17:15 BP 161/76 H 08/03/17 17:15 Pulse Ox 98 08/03/17 17:15 - Labs Result Diagrams: 08/05/17 12:45 08/05/17 12:45 Labs: Laboratory Results - last 24 hr 08/02/17 08/02/17 08/02/17 19:05 19:52 21:13 WBC RBC Hgb Hct MCV MCH MCHC RDW Plt Count MPV Gran % Lymph % (Auto) [place] % (Auto) Eos % (Auto) Baso % (Auto) Gran # Lymph # [place] # Eos # Baso # pCO2 pO2 HCO3 ABG pH ABG Total CO2 ABG O2 Saturation ABG O2 Content ABG Base Excess ABG Hemoglobin ABG Carboxyhemoglobin POC ABG HHb (Measured) ABG Methemoglobin ABG O2 Capacity Hgb O2 Saturation FiO2 Sodium Potassium Chloride Carbon Dioxide Anion Gap BUN Creatinine Est GFR ( Amer) Est GFR (Non-Af Amer) POC Glucose (mg/dL) 146 H 139 H 124 H Random Glucose Calcium Phosphorus Magnesium Total Bilirubin AST ALT Alkaline Phosphatase Total Protein Albumin Globulin Albumin/Globulin Ratio 08/02/17 08/02/17 08/03/17 22:04 23:05 00:05 WBC RBC Hgb Hct MCV MCH MCHC RDW Plt Count MPV Gran % Lymph % (Auto) [place] % (Auto) Eos % (Auto) Baso % (Auto) Gran # Lymph # [place] # Eos # Baso # pCO2 pO2 HCO3 ABG pH ABG Total CO2 ABG O2 Saturation ABG O2 Content ABG Base Excess ABG Hemoglobin ABG Carboxyhemoglobin POC ABG HHb (Measured) ABG Methemoglobin ABG O2 Capacity Hgb O2 Saturation FiO2 Sodium Potassium Chloride Carbon Dioxide Anion Gap BUN Creatinine Est GFR ( Amer) Est GFR (Non-Af Amer) POC Glucose (mg/dL) 122 H 116 H 94 Random Glucose Calcium Phosphorus Magnesium Total Bilirubin AST ALT Alkaline Phosphatase Total Protein Albumin Globulin Albumin/Globulin Ratio 08/03/17 08/03/17 08/03/17 00:58 01:53 03:08 WBC RBC Hgb Hct MCV MCH MCHC RDW Plt Count MPV Gran % Lymph % (Auto) [place] % (Auto) Eos % (Auto) Baso % (Auto) Gran # Lymph # [place] # Eos # Baso # pCO2 pO2 HCO3 ABG pH ABG Total CO2 ABG O2 Saturation ABG O2 Content ABG Base Excess ABG Hemoglobin ABG Carboxyhemoglobin POC ABG HHb (Measured) ABG Methemoglobin ABG O2 Capacity Hgb O2 Saturation FiO2 Sodium Potassium Chloride Carbon Dioxide Anion Gap BUN Creatinine Est GFR ( Amer) Est GFR (Non-Af Amer) POC Glucose (mg/dL) 109 176 H 158 H Random Glucose Calcium Phosphorus Magnesium Total Bilirubin AST ALT Alkaline Phosphatase Total Protein Albumin Globulin Albumin/Globulin Ratio 08/03/17 08/03/17 08/03/17 04:15 05:12 05:16 WBC RBC Hgb Hct MCV MCH MCHC RDW Plt Count MPV Gran % Lymph % (Auto) [place] % (Auto) Eos % (Auto) Baso % (Auto) Gran # Lymph # [place] # Eos # Baso # pCO2 34 L pO2 141.0 H HCO3 23.1 ABG pH 7.44 ABG Total CO2 24.1 ABG O2 Saturation 100.3 H ABG O2 Content 10.8 L ABG Base Excess -0.8 ABG Hemoglobin 7.7 L ABG Carboxyhemoglobin 2.4 H POC ABG HHb (Measured) -0.3 L ABG Methemoglobin 1.0 ABG O2 Capacity 10.8 L Hgb O2 Saturation 97.0 FiO2 40.0 Sodium Potassium Chloride Carbon Dioxide Anion Gap BUN Creatinine Est GFR ( Amer) Est GFR (Non-Af Amer) POC Glucose (mg/dL) 119 H 103 Random Glucose Calcium Phosphorus Magnesium Total Bilirubin AST ALT Alkaline Phosphatase Total Protein Albumin Globulin Albumin/Globulin Ratio 08/03/17 08/03/17 08/03/17 06:01 06:30 06:30 WBC 15.1 H RBC 2.92 L Hgb 8.3 L Hct 27.0 L MCV 92.5 MCH 28.4 MCHC 30.7 L RDW 13.5 Plt Count 197 MPV 9.5 Gran % 92.3 H Lymph % (Auto) 4.0 L [place] % (Auto) 3.7 Eos % (Auto) 0.0 L Baso % (Auto) 0.0 Gran # 13.95 H Lymph # 0.6 L [place] # 0.6 Eos # 0.0 Baso # 0.00 pCO2 pO2 HCO3 ABG pH ABG Total CO2 ABG O2 Saturation ABG O2 Content ABG Base Excess ABG Hemoglobin ABG Carboxyhemoglobin POC ABG HHb (Measured) ABG Methemoglobin ABG O2 Capacity Hgb O2 Saturation FiO2 Sodium 160 H* Potassium 3.7 Chloride 125 H D Carbon Dioxide 24 Anion Gap 15 BUN 31 H Creatinine 0.9 Est GFR ( Amer) > 60 Est GFR (Non-Af Amer) > 60 POC Glucose (mg/dL) 114 H Random Glucose 98 Calcium 9.1 Phosphorus 3.4 Magnesium 2.1 Total Bilirubin 0.3 AST 22 ALT 35 Alkaline Phosphatase 90 Total Protein 6.4 Albumin 3.3 Globulin 3.1 Albumin/Globulin Ratio 1.1 08/03/17 08/03/17 08/03/17 07:09 08:19 09:22 WBC RBC Hgb Hct MCV MCH MCHC RDW Plt Count MPV Gran % Lymph % (Auto) [place] % (Auto) Eos % (Auto) Baso % (Auto) Gran # Lymph # [place] # Eos # Baso # pCO2 pO2 HCO3 ABG pH ABG Total CO2 ABG O2 Saturation ABG O2 Content ABG Base Excess ABG Hemoglobin ABG Carboxyhemoglobin POC ABG HHb (Measured) ABG Methemoglobin ABG O2 Capacity Hgb O2 Saturation FiO2 Sodium Potassium Chloride Carbon Dioxide Anion Gap BUN Creatinine Est GFR ( Amer) Est GFR (Non-Af Amer) POC Glucose (mg/dL) 152 H 145 H 135 H Random Glucose Calcium Phosphorus Magnesium Total Bilirubin AST ALT Alkaline Phosphatase Total Protein Albumin Globulin Albumin/Globulin Ratio 08/03/17 08/03/17 08/03/17 09:54 11:28 12:39 WBC RBC Hgb Hct MCV MCH MCHC RDW Plt Count MPV Gran % Lymph % (Auto) [place] % (Auto) Eos % (Auto) Baso % (Auto) Gran # Lymph # [place] # Eos # Baso # pCO2 pO2 HCO3 ABG pH ABG Total CO2 ABG O2 Saturation ABG O2 Content ABG Base Excess ABG Hemoglobin ABG Carboxyhemoglobin POC ABG HHb (Measured) ABG Methemoglobin ABG O2 Capacity Hgb O2 Saturation FiO2 Sodium Potassium Chloride Carbon Dioxide Anion Gap BUN Creatinine Est GFR ( Amer) Est GFR (Non-Af Amer) POC Glucose (mg/dL) 122 H 85 92 Random Glucose Calcium Phosphorus Magnesium Total Bilirubin AST ALT Alkaline Phosphatase Total Protein Albumin Globulin Albumin/Globulin Ratio 08/03/17 08/03/17 08/03/17 14:17 14:51 17:54 WBC RBC Hgb Hct MCV MCH MCHC RDW Plt Count MPV Gran % Lymph % (Auto) [place] % (Auto) Eos % (Auto) Baso % (Auto) Gran # Lymph # [place] # Eos # Baso # pCO2 pO2 HCO3 ABG pH ABG Total CO2 ABG O2 Saturation ABG O2 Content ABG Base Excess ABG Hemoglobin ABG Carboxyhemoglobin POC ABG HHb (Measured) ABG Methemoglobin ABG O2 Capacity Hgb O2 Saturation FiO2 Sodium Potassium Chloride Carbon Dioxide Anion Gap BUN Creatinine Est GFR ( Amer) Est GFR (Non-Af Amer) POC Glucose (mg/dL) 109 143 H 182 H Random Glucose Calcium Phosphorus Magnesium Total Bilirubin AST ALT Alkaline Phosphatase Total Protein Albumin Globulin Albumin/Globulin Ratio 08/03/17 18:57 WBC RBC Hgb Hct MCV MCH MCHC RDW Plt Count MPV Gran % Lymph % (Auto) [place] % (Auto) Eos % (Auto) Baso % (Auto) Gran # Lymph # [place] # Eos # Baso # pCO2 pO2 HCO3 ABG pH ABG Total CO2 ABG O2 Saturation ABG O2 Content ABG Base Excess ABG Hemoglobin ABG Carboxyhemoglobin POC ABG HHb (Measured) ABG Methemoglobin ABG O2 Capacity Hgb O2 Saturation FiO2 Sodium Potassium Chloride Carbon Dioxide Anion Gap BUN Creatinine Est GFR ( Amer) Est GFR (Non-Af Amer) POC Glucose (mg/dL) 195 H Random Glucose Calcium Phosphorus Magnesium Total Bilirubin AST ALT Alkaline Phosphatase Total Protein Albumin Globulin Albumin/Globulin Ratio Assessment & Plan (1) Uterine cancer Assessment and Plan: with brain metastasis s/p neurosurgical resection brain bleed will place a radiation oncology evaluation for radiotherpay determination Status: Acute (2) Anemia Assessment and Plan: chronic disease Status: Acute (3) Leukocytosis Assessment and Plan: likely reactive Thank you for this interesting consult. Status: Acute
[2017-08-04] MEDS: levETIRAcetam 500mg IVPB 500 MG/100 ML BAG IVPB SCH ×3 (00:15→22:00)
[2017-08-04] MEDS: Aztreonam 1 Gm in NS 100mL 100 ML IVPB SCH ×4 (00:16→22:00)
[2017-08-04] MEDS: Vancomycin 1gm in NS 250ml 1 GM/250 ML BAG IVPB SCH ×2 (05:22→13:12)
[2017-08-04 07:02] LABS: GRAN # 9.75 (1.4-6.5); GRAN % 95.2 % (50.0-68.0); HEMATOCRIT 25.4 % (36.0-48.0); LYMPH # 0.3 (1.2-3.4); LYMPH % 3.2 % (22.0-35.0); MEAN CELL VOLUME 92.4 fl (80.0-105.0); MEAN CORPUSCULAR HEMOGLOBIN 28.7 pg (25.0-35.0); MEAN CORPUSCULAR HGB CONC 31.1 g/dl (31.0-37.0); MEAN PLATELET VOLUME 9.5 fl (7.0-11.0); MONO # 0.2 (0.1-0.6); MONO % 1.6 % (1.0-6.0); RED CELL DISTRIBUTION WIDTH 13.6 % (11.5-14.5); WHITE BLOOD COUNT 10.2 10^3/ul (4.5-11.0)
[2017-08-04] MEDS ORDERED: Insulin Reg-LOW-Coverage SC SCH ×2 (07:30)
[2017-08-04 07:42] LABS: ALB/GLOB RATIO 1.2 (1.1-1.8); ALKALINE PHOSPHATASE 93 U/L (38-126); ALT/SGPT 34 U/L (7-56); AST/SGOT 32 U/L (14-36); BILIRUBIN,TOTAL 0.5 mg/dL (0.2-1.3); BLOOD UREA NITROGEN 37 mg/dL (7-21); CALCIUM 9.3 mg/dL (8.4-10.5); CARBON DIOXIDE 26 mmol/L (21-33); CHLORIDE 118 mmol/L (98-107); GFR AFRICAN-AMERICAN > 60; GLUCOSE,RANDOM 247 mg/dL (70-110); PHOSPHOROUS 4.7 mg/dL (2.5-4.5); POTASSIUM 3.6 mmol/L (3.6-5.0); SODIUM 153 mmol/L (132-148); TOTAL PROTEIN 6.2 g/dL (5.8-8.3)
[2017-08-04 08:20] LABS: ARTERIAL BLOOD GAS HCO3 25.2 mmol/L (21-28); ARTERIAL BLOOD GAS O2 CAPACITY 10.5 mL/dl (16-24); ARTERIAL BLOOD GAS O2 CONTENT 10.5 ML/dl (15-23); ARTERIAL BLOOD GAS PH 7.43 (7.35-7.45); ARTERIAL BLOOD HGB O2 SAT 96.8 % (95.0-98.0); CARBOXYHEMOGLOBIN 1.8 % (0.5-1.5); HHB 0.2 % (0-5); METHEMOGLOBIN 1.2 % (0.0-3.0)
--- NOTE | 2017-08-04 09:07 | RAD ---
HISTORY: mech vent COMPARISON: 08/03/2017. FINDINGS: The nasogastric tube terminates in the stomach. There has been interval extubation. LUNGS: The lungs are clear. PLEURA: No significant pleural effusion identified, no pneumothorax apparent. CARDIOVASCULAR: Normal. OSSEOUS STRUCTURES: No significant abnormalities. VISUALIZED UPPER ABDOMEN: Normal. OTHER FINDINGS: None. IMPRESSION: No active pulmonary disease.
--- NOTE | 2017-08-04 10:03 | CP.PCM.CON ---
History of Present Illness - History of Present Illness History of Present Illness: Ms Hernandez is a 67 year old female with metastatic uterine cancer with an isolated right parietal cystic brain metastases. Her history dates back 3 years ago when she was diagnosed with uterine cancer. She underwent surgery, chemotherapy and radiation in [facility]. She was recently admitted to [facility] in early July with a several week history of left sided weakness as well as falling 2-3x. On admission on July 19, 2017, she had a CT of the head which revealed a hypodense fluid collection measuring 5.1 x 3.5cm with mass effect on the right lateral ventricle with a 4mm shift. A MRI of the brain on July 20, 2017 revealed a large cystic mass in the right parietal lobe measuring 5.7 x 3.7 x 5.7cm with enhancing rim. A CT of the chest , abdomen and pelvis revealed no metastases. She underwent a craniotomy with biopsy on July 26, 2017 which revealed poorly differentiated carcinoma consistent with her uterine cancer. As per the niece, she was doing well. She still had weakness, but was cognitively fine. On July 31, 2017, [facility], and suddenly developed headaches, nausea, vomiting and was unresponsive as per the family. She was transferred back to [facility] for further evaluation. A repeat CT of the head on August 01, 2017 revealed a large elliptical hemorrhage with surrounding edema. A MRI of the brain on August 01, 2017 revealed an acute hemorrhage in the frontoparietal region with moderate to large edema with a 14mm shift. She was started on decadron and has been in the CCU. She was recently extubated. As per the family, she appears slightly better although she is non verbal. Review of Systems - Constitutional Constitutional: Weakness - Neurological Neurological: Weakness Past Patient History - Infectious Disease Hx of Infectious Diseases: None - Past Medical History & Family History Past Medical History?: Yes - Past Social History Smoking Status: Never Smoked Alcohol: None Home Situation {Lives}: With Family - CARDIAC Hx Cardiac Disorders: Yes Hx Hypertension: Yes - PULMONARY Hx Respiratory Disorders: No Hx Asthma: No (didn't mention) - NEUROLOGICAL Hx Neurological Disorder: No Hx Seizures: No Hx Syncope: No - HEENT Hx HEENT Problems: Yes Hx Cataracts: Yes - RENAL Hx Chronic Kidney Disease: No - ENDOCRINE/METABOLIC Hx Diabetes Mellitus Type 2: Yes - HEMATOLOGICAL/ONCOLOGICAL Hx Blood Disorders: Yes Hx Cancer: Yes (uterine ) Hx Chemotherapy: Yes Other/Comment: Uterus cancer- last cheml in february 2017 - INTEGUMENTARY Hx Dermatological Problems: No - MUSCULOSKELETAL/RHEUMATOLOGICAL Hx Musculoskeletal Disorders: Yes Hx Falls: Yes - GASTROINTESTINAL Hx Gastrointestinal Disorders: No - GENITOURINARY/GYNECOLOGICAL Hx Genitourinary Disorders: No - PSYCHIATRIC Hx Psychophysiologic Disorder: No Hx Substance Use: No - SURGICAL HISTORY Hx Cholecystectomy: Yes Hx Hysterectomy: Yes - ANESTHESIA Hx Anesthesia: Yes Hx Anesthesia Reactions: No Hx Malignant Hyperthermia: No Meds Allergies/Adverse Reactions: Allergies Allergy/AdvReac Type Severity Reaction Status Date / Time Penicillins Allergy ANGIOEDEMA Verified 07/19/17 18:41 - Medications Medications: Current Medications Dexamethasone (Decadron Inj) 10 mg IVP Q6 [facility] Last Admin: 08/04/17 05:24 Dose: 10 mg Levetiracetam (Keppra 500mg Ivpb) 500 mg in 100 mls @ 460 mls/hr IVPB Q12 [facility] Last Admin: 08/04/17 00:15 Dose: 460 mls/hr Insulin Human Regular 100 (units/ Sodium Chloride) 100 mls @ 5 mls/hr IV .Q20H PRN; Protocol; 5 UNITS/HR PRN Reason: TITRATE PER MD ORDER Last Titration: 08/03/17 20:12 Dose: 7 units/hr, 7 mls/hr Sodium Chloride (Hypertonic Saline 3%) 500 mls @ 50 mls/hr IV .Q10H [facility] Last Admin: 08/03/17 18:38 Dose: Not Given Vancomycin HCl (Vancomycin 1gm) 1 gm in 250 mls @ 167 mls/hr IVPB Q12H [facility] PRN Reason: Protocol Last Admin: 08/04/17 05:22 Dose: 167 mls/hr Aztreonam (Azactam 1 Gm) 100 mls @ 100 mls/hr IVPB Q8 [facility] PRN Reason: Protocol Last Admin: 08/04/17 05:23 Dose: 100 mls/hr Acetaminophen (Ofirmev) 1,000 mg in 100 mls @ 400 mls/hr IVPB Q6H PRN PRN Reason: Pain, moderate (4-7) Stop: 08/05/17 17:42 Last Admin: 08/03/17 18:07 Dose: 400 mls/hr Insulin Human Regular (Humulin R Low) 0 units SC Q6H [facility] PRN Reason: Protocol Last Admin: 08/04/17 08:14 Dose: 3 units Nystatin/Triamcinolone Acetonide (Nystatin/Triamcinolone Cream) 1 ea TOP BID PRN PRN Reason: Excoriation Pantoprazole Sodium (Protonix Inj) 40 mg IVP DAILY [facility] Last Admin: 08/03/17 11:15 Dose: 40 mg Physical Exam - Respiratory Exam Respiratory Exam: Clear to Auscultation Bilateral - Cardiovascular Exam Cardiovascular Exam: REGULAR RHYTHM - GI/Abdominal Exam GI & Abdominal Exam: Normal Bowel Sounds - Neurological Exam Additional comments: left sided weakness Results - Vital Signs Recent Vital Signs: Last Vital Signs Temp 98.4 F 08/04/17 06:01 Pulse 49 L 08/04/17 07:46 Resp 23 08/04/17 06:01 BP 158/64 H 08/04/17 06:01 Pulse Ox 92 L 08/04/17 06:01 - Labs Result Diagrams: 08/04/17 05:30 08/04/17 05:30 Labs: Laboratory Results - last 24 hr 08/03/17 08/03/17 08/03/17 09:54 11:28 12:39 WBC RBC Hgb Hct MCV MCH MCHC RDW Plt Count MPV Gran % Lymph % (Auto) [place] % (Auto) Eos % (Auto) Baso % (Auto) Gran # Lymph # [place] # Eos # Baso # pCO2 pO2 HCO3 ABG pH ABG Total CO2 ABG O2 Saturation ABG O2 Content ABG Base Excess ABG Hemoglobin ABG Carboxyhemoglobin POC ABG HHb (Measured) ABG Methemoglobin ABG O2 Capacity Hgb O2 Saturation FiO2 Sodium Potassium Chloride Carbon Dioxide Anion Gap BUN Creatinine Est GFR ( Amer) Est GFR (Non-Af Amer) POC Glucose (mg/dL) 122 H 85 92 Random Glucose Calcium Phosphorus Magnesium Total Bilirubin AST ALT Alkaline Phosphatase Total Protein Albumin Globulin Albumin/Globulin Ratio 08/03/17 08/03/17 08/03/17 14:17 14:51 17:54 WBC RBC Hgb Hct MCV MCH MCHC RDW Plt Count MPV Gran % Lymph % (Auto) [place] % (Auto) Eos % (Auto) Baso % (Auto) Gran # Lymph # [place] # Eos # Baso # pCO2 pO2 HCO3 ABG pH ABG Total CO2 ABG O2 Saturation ABG O2 Content ABG Base Excess ABG Hemoglobin ABG Carboxyhemoglobin POC ABG HHb (Measured) ABG Methemoglobin ABG O2 Capacity Hgb O2 Saturation FiO2 Sodium Potassium Chloride Carbon Dioxide Anion Gap BUN Creatinine Est GFR ( Amer) Est GFR (Non-Af Amer) POC Glucose (mg/dL) 109 143 H 182 H Random Glucose Calcium Phosphorus Magnesium Total Bilirubin AST ALT Alkaline Phosphatase Total Protein Albumin Globulin Albumin/Globulin Ratio 08/03/17 08/03/17 08/03/17 18:57 20:01 20:59 WBC RBC Hgb Hct MCV MCH MCHC RDW Plt Count MPV Gran % Lymph % (Auto) [place] % (Auto) Eos % (Auto) Baso % (Auto) Gran # Lymph # [place] # Eos # Baso # pCO2 pO2 HCO3 ABG pH ABG Total CO2 ABG O2 Saturation ABG O2 Content ABG Base Excess ABG Hemoglobin ABG Carboxyhemoglobin POC ABG HHb (Measured) ABG Methemoglobin ABG O2 Capacity Hgb O2 Saturation FiO2 Sodium Potassium Chloride Carbon Dioxide Anion Gap BUN Creatinine Est GFR ( Amer) Est GFR (Non-Af Amer) POC Glucose (mg/dL) 195 H 166 H 136 H Random Glucose Calcium Phosphorus Magnesium Total Bilirubin AST ALT Alkaline Phosphatase Total Protein Albumin Globulin Albumin/Globulin Ratio 08/03/17 08/03/17 08/03/17 21:59 22:59 23:55 WBC RBC Hgb Hct MCV MCH MCHC RDW Plt Count MPV Gran % Lymph % (Auto) [place] % (Auto) Eos % (Auto) Baso % (Auto) Gran # Lymph # [place] # Eos # Baso # pCO2 pO2 HCO3 ABG pH ABG Total CO2 ABG O2 Saturation ABG O2 Content ABG Base Excess ABG Hemoglobin ABG Carboxyhemoglobin POC ABG HHb (Measured) ABG Methemoglobin ABG O2 Capacity Hgb O2 Saturation FiO2 Sodium Potassium Chloride Carbon Dioxide Anion Gap BUN Creatinine Est GFR ( Amer) Est GFR (Non-Af Amer) POC Glucose (mg/dL) 90 116 H 142 H Random Glucose Calcium Phosphorus Magnesium Total Bilirubin AST ALT Alkaline Phosphatase Total Protein Albumin Globulin Albumin/Globulin Ratio 08/04/17 08/04/17 08/04/17 05:30 05:30 06:05 WBC 10.2 D RBC 2.75 L Hgb 7.9 L Hct 25.4 L MCV 92.4 MCH 28.7 MCHC 31.1 RDW 13.6 Plt Count 173 MPV 9.5 Gran % 95.2 H Lymph % (Auto) 3.2 L [place] % (Auto) 1.6 Eos % (Auto) 0.0 L Baso % (Auto) 0.0 Gran # 9.75 H Lymph # 0.3 L [place] # 0.2 Eos # 0.0 Baso # 0.00 pCO2 pO2 HCO3 ABG pH ABG Total CO2 ABG O2 Saturation ABG O2 Content ABG Base Excess ABG Hemoglobin ABG Carboxyhemoglobin POC ABG HHb (Measured) ABG Methemoglobin ABG O2 Capacity Hgb O2 Saturation FiO2 Sodium 153 H Potassium 3.6 Chloride 118 H Carbon Dioxide 26 Anion Gap 13 BUN 37 H Creatinine 0.9 Est GFR ( Amer) > 60 Est GFR (Non-Af Amer) > 60 POC Glucose (mg/dL) 307 H Random Glucose 247 H Calcium 9.3 Phosphorus 4.7 H Magnesium 2.0 Total Bilirubin 0.5 AST 32 ALT 34 Alkaline Phosphatase 93 Total Protein 6.2 Albumin 3.3 Globulin 2.8 Albumin/Globulin Ratio 1.2 08/04/17 08/04/17 07:37 08:15 WBC RBC Hgb Hct MCV MCH MCHC RDW Plt Count MPV Gran % Lymph % (Auto) [place] % (Auto) Eos % (Auto) Baso % (Auto) Gran # Lymph # [place] # Eos # Baso # pCO2 38 pO2 126.0 H HCO3 25.2 ABG pH 7.43 ABG Total CO2 26.4 ABG O2 Saturation 99.8 H ABG O2 Content 10.5 L ABG Base Excess 0.9 ABG Hemoglobin 7.5 L ABG Carboxyhemoglobin 1.8 H POC ABG HHb (Measured) 0.2 ABG Methemoglobin 1.2 ABG O2 Capacity 10.5 L Hgb O2 Saturation 96.8 FiO2 40.0 Sodium Potassium Chloride Carbon Dioxide Anion Gap BUN Creatinine Est GFR ( Amer) Est GFR (Non-Af Amer) POC Glucose (mg/dL) 294 H Random Glucose Calcium Phosphorus Magnesium Total Bilirubin AST ALT Alkaline Phosphatase Total Protein Albumin Globulin Albumin/Globulin Ratio Assessment & Plan - Assessment and Plan (Free Text) Assessment: Ms Hernandez is a 67 year old female with metastatic uterine cancer with an isolated right parietal cystic brain metastases status post craniotomy with biopsy on July 26, 2017. Unfortunately, her postoperative course was significant for an acute bleed. We spoke at length with her niece about her situation. She reportedly is slightly better although as per the family she is non-verbal since the bleed and continues to have left sided weakness. We mentioned that we need to obtain her previous records from [facility]. We also conveyed that we do not know the extent of her neurologic deficits due to her metastases as well as from the acute bleed. If she continues to improve and is stabilized, one could consider palliative radiation for the brain metastases given the limited extent of her disease. The family is aware that the radiation would not be able to reverse any permanent damage that could have resulted from the metastases as well as from the acute bleed. We would want to observe how she continues to improve over the next few days. She would not be offered radiation while in the CCU since we would want the acute issues from the bleed to resolve. Once we have a better idea of how she is improving, we could touch base again with the family about their interest in radiation. We also spoke to the niece that the family and patient would need to decide how aggressive they would want to be after weighing the risks and benefits, and considering quality of life. We will continue to keep in close communication with the family about this.
--- NOTE | 2017-08-04 11:52 | CP.PCM.PN ---
Subjective - Date & Time of Evaluation Date of Evaluation: 08/04/17 Time of Evaluation: 11:48 - Subjective Subjective: Surgery note for Dr. Schafer 67F seen and examined at bedside. Patient intubated and sedated. Objective - Vital Signs/Intake and Output Vital Signs (last 24 hours): Temp Pulse Resp BP Pulse Ox 98.4 F 49 L 23 158/64 H 92 L 08/04/17 06:01 08/04/17 07:46 08/04/17 06:01 08/04/17 06:01 08/04/17 06:01 Intake and Output: 08/04/17 08/04/17 06:59 18:59 Intake Total 9 73.9 Balance 9 73.9 - Medications Medications: Current Medications Levetiracetam (Keppra 500mg Ivpb) 500 mg in 100 mls @ 460 mls/hr IVPB Q12 VANIA Last Admin: 08/04/17 10:14 Dose: 460 mls/hr Insulin Human Regular 100 (units/ Sodium Chloride) 100 mls @ 5 mls/hr IV .Q20H PRN; Protocol; 5 UNITS/HR PRN Reason: TITRATE PER MD ORDER Last Titration: 08/04/17 11:32 Dose: 16 units/hr, 16 mls/hr Sodium Chloride (Hypertonic Saline 3%) 500 mls @ 50 mls/hr IV .Q10H VANIA Last Admin: 08/03/17 18:38 Dose: Not Given Vancomycin HCl (Vancomycin 1gm) 1 gm in 250 mls @ 167 mls/hr IVPB Q12H VANIA PRN Reason: Protocol Last Admin: 08/04/17 05:22 Dose: 167 mls/hr Aztreonam (Azactam 1 Gm) 100 mls @ 100 mls/hr IVPB Q8 VANIA PRN Reason: Protocol Last Admin: 08/04/17 05:23 Dose: 100 mls/hr Acetaminophen (Ofirmev) 1,000 mg in 100 mls @ 400 mls/hr IVPB Q6H PRN PRN Reason: Pain, moderate (4-7) Stop: 08/05/17 17:42 Last Admin: 08/03/17 18:07 Dose: 400 mls/hr Insulin Human Regular (Humulin R Low) 0 units SC Q6H VANIA PRN Reason: Protocol Last Admin: 08/04/17 08:14 Dose: 3 units Nystatin/Triamcinolone Acetonide (Nystatin/Triamcinolone Cream) 1 ea TOP BID PRN PRN Reason: Excoriation Pantoprazole Sodium (Protonix Inj) 40 mg IVP DAILY VANIA Last Admin: 08/04/17 10:13 Dose: 40 mg - Labs Labs: 08/04/17 05:30 08/04/17 05:30 PT 10.5 Seconds (9.9-11.8) 08/01/17 08:20 INR 0.97 (0.93-1.08) 08/01/17 08:20 APTT 27.3 Seconds (23.7-30.8) 08/01/17 08:20 - Constitutional Appears: Other (intubated) - Respiratory Exam Respiratory Exam: Clear to Ausculation Bilateral, NORMAL BREATHING PATTERN Additional comments: intubated - Cardiovascular Exam Cardiovascular Exam: REGULAR RHYTHM, +S1, +S2 Additional comments: - site of portacath removal CDI - No hematoma - dressing changed Assessment and Plan - Assessment and Plan (Free Text) Assessment: 67F s/p portacath removal bedside, POD1 Plan: - Monitor incision site for bleeding or erythema - No further intervention at this time Further recs discuss with Dr. Gilmar Akers, PGY2
--- NOTE | 2017-08-04 11:54 | CP.CCUPN ---
CCU Subjective - Physician Review Subjective (Free Text): 08/04/17 11:57 Patient seen and assessed at bedside. Patient extubated and on NC. Patient opens her eyes to verbal stimulations and follows minimal commands (will squeeze with R hand) but is verbally unresponsive. Overnight, patient became hypoglycemic on fingerstick glucose readings and her insulin drip was stopped and she was placed on subcutaneous SSI. ROS unobtainable due to clinical condition of patient. CCU Objective - Vital Signs / Intake & Output Intake and Output (Last 8hrs): Intake & Output 08/03/17 08/04/17 08/04/17 22:59 06:59 14:59 Intake Total 459 73.9 Output Total 1200 Balance -741 73.9 Intake: IV 459 73.9 Left Antecubital 350 Output: Urine 1200 2-way Urethral 1200 - Physical Exam Head: Positive for: Other (Jhoan from surgical wound site, without signs of infection) Pupils: Positive for: PERRL Extroacular Muscles: Positive for: EOMI Conjunctiva: Positive for: Normal Mouth: Positive for: Moist Mucous Membranes Neck: Positive for: Normal Range of Motion Respiratory/Chest: Positive for: Clear to Auscultation, Good Air Exchange. Negative for: Respiratory Distress, Accessory Muscle Use Cardiovascular: Positive for: Regular Rate and Rhythm, Normal S1, S2. Negative for: Murmurs Abdomen: Positive for: Normal Bowel Sounds. Negative for: Tenderness, Distention, Peritoneal Signs Upper Extremity: Negative for: Cyanosis, Edema Lower Extremity: Negative for: Edema Neurological: Negative for: GCS=15 Skin: Positive for: Dry, Pale. Negative for: Rashes Psychiatric: Negative for: Alert, Oriented x 3 - Medications Active Medications: Active Medications Generic Name Dose Route Start Last Admin Trade Name Freq PRN Reason Stop Dose Admin Levetiracetam 500 mg in 100 mls @ 460 mls/hr 08/01/17 10:00 08/04/17 10:14 Keppra 500mg Ivpb IVPB 460 mls/hr Q12 VANIA Administration Insulin Human Regular 100 100 mls @ 5 mls/hr 08/01/17 09:44 08/04/17 11:32 units/ Sodium Chloride IV 16 units/hr .Q20H PRN 16 mls/hr TITRATE PER MD ORDER Titration Protocol 5 UNITS/HR Sodium Chloride 500 mls @ 50 mls/hr 08/01/17 18:45 08/03/17 18:38 Hypertonic Saline 3% IV Not Given .Q10H VANIA Vancomycin HCl 1 gm in 250 mls @ 167 mls/hr 08/02/17 12:15 08/04/17 05:22 Vancomycin 1gm IVPB 167 mls/hr Q12H VANIA Administration Protocol Aztreonam 100 mls @ 100 mls/hr 08/02/17 15:15 08/04/17 05:23 Azactam 1 Gm IVPB 100 mls/hr Q8 VANIA Administration Protocol Acetaminophen 1,000 mg in 100 mls @ 400 mls/hr 08/03/17 17:41 08/03/17 18:07 Ofirmev IVPB 08/05/17 17:42 400 mls/hr Q6H PRN Administration Pain, moderate (4-7) Insulin Human Regular 0 units 08/04/17 07:30 08/04/17 08:14 Humulin R Low SC 3 units Q6H VANIA Administration Protocol Nystatin/Triamcinolone Acetonide 1 ea 08/01/17 20:55 Nystatin/Triamcinolone Cream TOP BID PRN Excoriation Pantoprazole Sodium 40 mg 08/01/17 10:00 08/04/17 10:13 Protonix Inj IVP 40 mg DAILY VANIA Administration - Patient Studies Lab Studies: Microbiology Studies 08/01/17 08:07 Blood Culture - Final Blood-Venous Coagulase Neg Staphylococcus Gram Stain - Final 08/01/17 07:30 S.aureus & Coag-Neg Staph PNA FISH - Final Blood-Venous Blood Culture - Final Coagulase Neg Staphylococcus Gram Stain - Final 08/03/17 06:30 Blood Culture - Preliminary Blood-Venous NO GROWTH AFTER 24 HOURS 08/03/17 06:00 Blood Culture - Preliminary Blood-Venous NO GROWTH AFTER 24 HOURS Lab Studies 08/04/17 08/04/17 08/04/17 Range/Units 11:31 08:15 07:37 WBC (4.5-11.0) 10^3/ul RBC (3.5-6.1) 10^6/uL Hgb (12.0-16.0) g/dL Hct (36.0-48.0) % MCV (80.0-105.0) fl MCH (25.0-35.0) pg MCHC (31.0-37.0) g/dl RDW (11.5-14.5) % Plt Count (120.0-450.0) 10^3/uL MPV (7.0-11.0) fl Gran % (50.0-68.0) % Lymph % (Auto) (22.0-35.0) % Routt % (Auto) (1.0-6.0) % Eos % (Auto) (1.5-5.0) % Baso % (Auto) (0.0-3.0) % Gran # (1.4-6.5) Lymph # (1.2-3.4) Routt # (0.1-0.6) Eos # (0.0-0.7) Baso # (0.0-2.0) K/mm3 pCO2 38 (35-45) mm/Hg pO2 126.0 H (80-100) mm/Hg HCO3 25.2 (21-28) mmol/L ABG pH 7.43 (7.35-7.45) ABG Total CO2 26.4 (22-28) mmol.L ABG O2 Saturation 99.8 H (95-98) % ABG O2 Content 10.5 L (15-23) ML/dl ABG Base Excess 0.9 (-2.0-3.0) mmol/L ABG Hemoglobin 7.5 L (11.7-17.4) g/dL ABG Carboxyhemoglobin 1.8 H (0.5-1.5) % POC ABG HHb (Measured) 0.2 (0-5) % ABG Methemoglobin 1.2 (0.0-3.0) % ABG O2 Capacity 10.5 L (16-24) mL/dl Hgb O2 Saturation 96.8 (95.0-98.0) % FiO2 40.0 % Sodium (132-148) mmol/L Potassium (3.6-5.0) mmol/L Chloride (98-107) mmol/L Carbon Dioxide (21-33) mmol/L Anion Gap (10-20) BUN (7-21) mg/dL Creatinine (0.5-1.4) mg/dL Est GFR ( Amer) Est GFR (Non-Af Amer) POC Glucose (mg/dL) 269 H 294 H (65-110) mg/dL Random Glucose (70-110) mg/dL Calcium (8.4-10.5) mg/dL Phosphorus (2.5-4.5) mg/dL Magnesium (1.7-2.2) mg/dL Total Bilirubin (0.2-1.3) mg/dL AST (14-36) U/L ALT (7-56) U/L Alkaline Phosphatase (38-126) U/L Total Protein (5.8-8.3) g/dL Albumin (3.0-4.8) g/dL Globulin gm/dL Albumin/Globulin Ratio (1.1-1.8) 08/04/17 08/04/17 08/04/17 Range/Units 06:05 05:30 05:30 WBC 10.2 D (4.5-11.0) 10^3/ul RBC 2.75 L (3.5-6.1) 10^6/uL Hgb 7.9 L (12.0-16.0) g/dL Hct 25.4 L (36.0-48.0) % MCV 92.4 (80.0-105.0) fl MCH 28.7 (25.0-35.0) pg MCHC 31.1 (31.0-37.0) g/dl RDW 13.6 (11.5-14.5) % Plt Count 173 (120.0-450.0) 10^3/uL MPV 9.5 (7.0-11.0) fl Gran % 95.2 H (50.0-68.0) % Lymph % (Auto) 3.2 L (22.0-35.0) % Routt % (Auto) 1.6 (1.0-6.0) % Eos % (Auto) 0.0 L (1.5-5.0) % Baso % (Auto) 0.0 (0.0-3.0) % Gran # 9.75 H (1.4-6.5) Lymph # 0.3 L (1.2-3.4) Routt # 0.2 (0.1-0.6) Eos # 0.0 (0.0-0.7) Baso # 0.00 (0.0-2.0) K/mm3 pCO2 (35-45) mm/Hg pO2 (80-100) mm/Hg HCO3 (21-28) mmol/L ABG pH (7.35-7.45) ABG Total CO2 (22-28) mmol.L ABG O2 Saturation (95-98) % ABG O2 Content (15-23) ML/dl ABG Base Excess (-2.0-3.0) mmol/L ABG Hemoglobin (11.7-17.4) g/dL ABG Carboxyhemoglobin (0.5-1.5) % POC ABG HHb (Measured) (0-5) % ABG Methemoglobin (0.0-3.0) % ABG O2 Capacity (16-24) mL/dl Hgb O2 Saturation (95.0-98.0) % FiO2 % Sodium 153 H (132-148) mmol/L Potassium 3.6 (3.6-5.0) mmol/L Chloride 118 H (98-107) mmol/L Carbon Dioxide 26 (21-33) mmol/L Anion Gap 13 (10-20) BUN 37 H (7-21) mg/dL Creatinine 0.9 (0.5-1.4) mg/dL Est GFR ( Amer) > 60 Est GFR (Non-Af Amer) > 60 POC Glucose (mg/dL) 307 H (65-110) mg/dL Random Glucose 247 H (70-110) mg/dL Calcium 9.3 (8.4-10.5) mg/dL Phosphorus 4.7 H (2.5-4.5) mg/dL Magnesium 2.0 (1.7-2.2) mg/dL Total Bilirubin 0.5 (0.2-1.3) mg/dL AST 32 (14-36) U/L ALT 34 (7-56) U/L Alkaline Phosphatase 93 (38-126) U/L Total Protein 6.2 (5.8-8.3) g/dL Albumin 3.3 (3.0-4.8) g/dL Globulin 2.8 gm/dL Albumin/Globulin Ratio 1.2 (1.1-1.8) 08/03/17 08/03/17 08/03/17 Range/Units 23:55 22:59 21:59 WBC (4.5-11.0) 10^3/ul RBC (3.5-6.1) 10^6/uL Hgb (12.0-16.0) g/dL Hct (36.0-48.0) % MCV (80.0-105.0) fl MCH (25.0-35.0) pg MCHC (31.0-37.0) g/dl RDW (11.5-14.5) % Plt Count (120.0-450.0) 10^3/uL MPV (7.0-11.0) fl Gran % (50.0-68.0) % Lymph % (Auto) (22.0-35.0) % Routt % (Auto) (1.0-6.0) % Eos % (Auto) (1.5-5.0) % Baso % (Auto) (0.0-3.0) % Gran # (1.4-6.5) Lymph # (1.2-3.4) Routt # (0.1-0.6) Eos # (0.0-0.7) Baso # (0.0-2.0) K/mm3 pCO2 (35-45) mm/Hg pO2 (80-100) mm/Hg HCO3 (21-28) mmol/L ABG pH (7.35-7.45) ABG Total CO2 (22-28) mmol.L ABG O2 Saturation (95-98) % ABG O2 Content (15-23) ML/dl ABG Base Excess (-2.0-3.0) mmol/L ABG Hemoglobin (11.7-17.4) g/dL ABG Carboxyhemoglobin (0.5-1.5) % POC ABG HHb (Measured) (0-5) % ABG Methemoglobin (0.0-3.0) % ABG O2 Capacity (16-24) mL/dl Hgb O2 Saturation (95.0-98.0) % FiO2 % Sodium (132-148) mmol/L Potassium (3.6-5.0) mmol/L Chloride (98-107) mmol/L Carbon Dioxide (21-33) mmol/L Anion Gap (10-20) BUN (7-21) mg/dL Creatinine (0.5-1.4) mg/dL Est GFR ( Amer) Est GFR (Non-Af Amer) POC Glucose (mg/dL) 142 H 116 H 90 (65-110) mg/dL Random Glucose (70-110) mg/dL Calcium (8.4-10.5) mg/dL Phosphorus (2.5-4.5) mg/dL Magnesium (1.7-2.2) mg/dL Total Bilirubin (0.2-1.3) mg/dL AST (14-36) U/L ALT (7-56) U/L Alkaline Phosphatase (38-126) U/L Total Protein (5.8-8.3) g/dL Albumin (3.0-4.8) g/dL Globulin gm/dL Albumin/Globulin Ratio (1.1-1.8) 08/03/17 08/03/17 08/03/17 Range/Units 20:59 20:01 18:57 WBC (4.5-11.0) 10^3/ul RBC (3.5-6.1) 10^6/uL Hgb (12.0-16.0) g/dL Hct (36.0-48.0) % MCV (80.0-105.0) fl MCH (25.0-35.0) pg MCHC (31.0-37.0) g/dl RDW (11.5-14.5) % Plt Count (120.0-450.0) 10^3/uL MPV (7.0-11.0) fl Gran % (50.0-68.0) % Lymph % (Auto) (22.0-35.0) % Routt % (Auto) (1.0-6.0) % Eos % (Auto) (1.5-5.0) % Baso % (Auto) (0.0-3.0) % Gran # (1.4-6.5) Lymph # (1.2-3.4) Routt # (0.1-0.6) Eos # (0.0-0.7) Baso # (0.0-2.0) K/mm3 pCO2 (35-45) mm/Hg pO2 (80-100) mm/Hg HCO3 (21-28) mmol/L ABG pH (7.35-7.45) ABG Total CO2 (22-28) mmol.L ABG O2 Saturation (95-98) % ABG O2 Content (15-23) ML/dl ABG Base Excess (-2.0-3.0) mmol/L ABG Hemoglobin (11.7-17.4) g/dL ABG Carboxyhemoglobin (0.5-1.5) % POC ABG HHb (Measured) (0-5) % ABG Methemoglobin (0.0-3.0) % ABG O2 Capacity (16-24) mL/dl Hgb O2 Saturation (95.0-98.0) % FiO2 % Sodium (132-148) mmol/L Potassium (3.6-5.0) mmol/L Chloride (98-107) mmol/L Carbon Dioxide (21-33) mmol/L Anion Gap (10-20) BUN (7-21) mg/dL Creatinine (0.5-1.4) mg/dL Est GFR ( Amer) Est GFR (Non-Af Amer) POC Glucose (mg/dL) 136 H 166 H 195 H (65-110) mg/dL Random Glucose (70-110) mg/dL Calcium (8.4-10.5) mg/dL Phosphorus (2.5-4.5) mg/dL Magnesium (1.7-2.2) mg/dL Total Bilirubin (0.2-1.3) mg/dL AST (14-36) U/L ALT (7-56) U/L Alkaline Phosphatase (38-126) U/L Total Protein (5.8-8.3) g/dL Albumin (3.0-4.8) g/dL Globulin gm/dL Albumin/Globulin Ratio (1.1-1.8) 08/03/17 08/03/17 08/03/17 Range/Units 17:54 14:51 14:17 WBC (4.5-11.0) 10^3/ul RBC (3.5-6.1) 10^6/uL Hgb (12.0-16.0) g/dL Hct (36.0-48.0) % MCV (80.0-105.0) fl MCH (25.0-35.0) pg MCHC (31.0-37.0) g/dl RDW (11.5-14.5) % Plt Count (120.0-450.0) 10^3/uL MPV (7.0-11.0) fl Gran % (50.0-68.0) % Lymph % (Auto) (22.0-35.0) % Routt % (Auto) (1.0-6.0) % Eos % (Auto) (1.5-5.0) % Baso % (Auto) (0.0-3.0) % Gran # (1.4-6.5) Lymph # (1.2-3.4) Routt # (0.1-0.6) Eos # (0.0-0.7) Baso # (0.0-2.0) K/mm3 pCO2 (35-45) mm/Hg pO2 (80-100) mm/Hg HCO3 (21-28) mmol/L ABG pH (7.35-7.45) ABG Total CO2 (22-28) mmol.L ABG O2 Saturation (95-98) % ABG O2 Content (15-23) ML/dl ABG Base Excess (-2.0-3.0) mmol/L ABG Hemoglobin (11.7-17.4) g/dL ABG Carboxyhemoglobin (0.5-1.5) % POC ABG HHb (Measured) (0-5) % ABG Methemoglobin (0.0-3.0) % ABG O2 Capacity (16-24) mL/dl Hgb O2 Saturation (95.0-98.0) % FiO2 % Sodium (132-148) mmol/L Potassium (3.6-5.0) mmol/L Chloride (98-107) mmol/L Carbon Dioxide (21-33) mmol/L Anion Gap (10-20) BUN (7-21) mg/dL Creatinine (0.5-1.4) mg/dL Est GFR ( Amer) Est GFR (Non-Af Amer) POC Glucose (mg/dL) 182 H 143 H 109 (65-110) mg/dL Random Glucose (70-110) mg/dL Calcium (8.4-10.5) mg/dL Phosphorus (2.5-4.5) mg/dL Magnesium (1.7-2.2) mg/dL Total Bilirubin (0.2-1.3) mg/dL AST (14-36) U/L ALT (7-56) U/L Alkaline Phosphatase (38-126) U/L Total Protein (5.8-8.3) g/dL Albumin (3.0-4.8) g/dL Globulin gm/dL Albumin/Globulin Ratio (1.1-1.8) 08/03/17 Range/Units 12:39 WBC (4.5-11.0) 10^3/ul RBC (3.5-6.1) 10^6/uL Hgb (12.0-16.0) g/dL Hct (36.0-48.0) % MCV (80.0-105.0) fl MCH (25.0-35.0) pg MCHC (31.0-37.0) g/dl RDW (11.5-14.5) % Plt Count (120.0-450.0) 10^3/uL MPV (7.0-11.0) fl Gran % (50.0-68.0) % Lymph % (Auto) (22.0-35.0) % Routt % (Auto) (1.0-6.0) % Eos % (Auto) (1.5-5.0) % Baso % (Auto) (0.0-3.0) % Gran # (1.4-6.5) Lymph # (1.2-3.4) Routt # (0.1-0.6) Eos # (0.0-0.7) Baso # (0.0-2.0) K/mm3 pCO2 (35-45) mm/Hg pO2 (80-100) mm/Hg HCO3 (21-28) mmol/L ABG pH (7.35-7.45) ABG Total CO2 (22-28) mmol.L ABG O2 Saturation (95-98) % ABG O2 Content (15-23) ML/dl ABG Base Excess (-2.0-3.0) mmol/L ABG Hemoglobin (11.7-17.4) g/dL ABG Carboxyhemoglobin (0.5-1.5) % POC ABG HHb (Measured) (0-5) % ABG Methemoglobin (0.0-3.0) % ABG O2 Capacity (16-24) mL/dl Hgb O2 Saturation (95.0-98.0) % FiO2 % Sodium (132-148) mmol/L Potassium (3.6-5.0) mmol/L Chloride (98-107) mmol/L Carbon Dioxide (21-33) mmol/L Anion Gap (10-20) BUN (7-21) mg/dL Creatinine (0.5-1.4) mg/dL Est GFR ( Amer) Est GFR (Non-Af Amer) POC Glucose (mg/dL) 92 (65-110) mg/dL Random Glucose (70-110) mg/dL Calcium (8.4-10.5) mg/dL Phosphorus (2.5-4.5) mg/dL Magnesium (1.7-2.2) mg/dL Total Bilirubin (0.2-1.3) mg/dL AST (14-36) U/L ALT (7-56) U/L Alkaline Phosphatase (38-126) U/L Total Protein (5.8-8.3) g/dL Albumin (3.0-4.8) g/dL Globulin gm/dL Albumin/Globulin Ratio (1.1-1.8) Laboratory Results - last 24 hr 08/03/17 08/03/17 08/03/17 12:39 14:17 14:51 WBC RBC Hgb Hct MCV MCH MCHC RDW Plt Count MPV Gran % Lymph % (Auto) Routt % (Auto) Eos % (Auto) Baso % (Auto) Gran # Lymph # Routt # Eos # Baso # pCO2 pO2 HCO3 ABG pH ABG Total CO2 ABG O2 Saturation ABG O2 Content ABG Base Excess ABG Hemoglobin ABG Carboxyhemoglobin POC ABG HHb (Measured) ABG Methemoglobin ABG O2 Capacity Hgb O2 Saturation FiO2 Sodium Potassium Chloride Carbon Dioxide Anion Gap BUN Creatinine Est GFR ( Amer) Est GFR (Non-Af Amer) POC Glucose (mg/dL) 92 109 143 H Random Glucose Calcium Phosphorus Magnesium Total Bilirubin AST ALT Alkaline Phosphatase Total Protein Albumin Globulin Albumin/Globulin Ratio 08/03/17 08/03/17 08/03/17 17:54 18:57 20:01 WBC RBC Hgb Hct MCV MCH MCHC RDW Plt Count MPV Gran % Lymph % (Auto) Routt % (Auto) Eos % (Auto) Baso % (Auto) Gran # Lymph # Routt # Eos # Baso # pCO2 pO2 HCO3 ABG pH ABG Total CO2 ABG O2 Saturation ABG O2 Content ABG Base Excess ABG Hemoglobin ABG Carboxyhemoglobin POC ABG HHb (Measured) ABG Methemoglobin ABG O2 Capacity Hgb O2 Saturation FiO2 Sodium Potassium Chloride Carbon Dioxide Anion Gap BUN Creatinine Est GFR ( Amer) Est GFR (Non-Af Amer) POC Glucose (mg/dL) 182 H 195 H 166 H Random Glucose Calcium Phosphorus Magnesium Total Bilirubin AST ALT Alkaline Phosphatase Total Protein Albumin Globulin Albumin/Globulin Ratio 08/03/17 08/03/17 08/03/17 20:59 21:59 22:59 WBC RBC Hgb Hct MCV MCH MCHC RDW Plt Count MPV Gran % Lymph % (Auto) Routt % (Auto) Eos % (Auto) Baso % (Auto) Gran # Lymph # Routt # Eos # Baso # pCO2 pO2 HCO3 ABG pH ABG Total CO2 ABG O2 Saturation ABG O2 Content ABG Base Excess ABG Hemoglobin ABG Carboxyhemoglobin POC ABG HHb (Measured) ABG Methemoglobin ABG O2 Capacity Hgb O2 Saturation FiO2 Sodium Potassium Chloride Carbon Dioxide Anion Gap BUN Creatinine Est GFR ( Amer) Est GFR (Non-Af Amer) POC Glucose (mg/dL) 136 H 90 116 H Random Glucose Calcium Phosphorus Magnesium Total Bilirubin AST ALT Alkaline Phosphatase Total Protein Albumin Globulin Albumin/Globulin Ratio 08/03/17 08/04/17 08/04/17 23:55 05:30 05:30 WBC 10.2 D RBC 2.75 L Hgb 7.9 L Hct 25.4 L MCV 92.4 MCH 28.7 MCHC 31.1 RDW 13.6 Plt Count 173 MPV 9.5 Gran % 95.2 H Lymph % (Auto) 3.2 L Routt % (Auto) 1.6 Eos % (Auto) 0.0 L Baso % (Auto) 0.0 Gran # 9.75 H Lymph # 0.3 L Routt # 0.2 Eos # 0.0 Baso # 0.00 pCO2 pO2 HCO3 ABG pH ABG Total CO2 ABG O2 Saturation ABG O2 Content ABG Base Excess ABG Hemoglobin ABG Carboxyhemoglobin POC ABG HHb (Measured) ABG Methemoglobin ABG O2 Capacity Hgb O2 Saturation FiO2 Sodium 153 H Potassium 3.6 Chloride 118 H Carbon Dioxide 26 Anion Gap 13 BUN 37 H Creatinine 0.9 Est GFR ( Amer) > 60 Est GFR (Non-Af Amer) > 60 POC Glucose (mg/dL) 142 H Random Glucose 247 H Calcium 9.3 Phosphorus 4.7 H Magnesium 2.0 Total Bilirubin 0.5 AST 32 ALT 34 Alkaline Phosphatase 93 Total Protein 6.2 Albumin 3.3 Globulin 2.8 Albumin/Globulin Ratio 1.2 08/04/17 08/04/17 08/04/17 06:05 07:37 08:15 WBC RBC Hgb Hct MCV MCH MCHC RDW Plt Count MPV Gran % Lymph % (Auto) [place]t % (Auto) Eos % (Auto) Baso % (Auto) Gran # Lymph # Routt # Eos # Baso # pCO2 38 pO2 126.0 H HCO3 25.2 ABG pH 7.43 ABG Total CO2 26.4 ABG O2 Saturation 99.8 H ABG O2 Content 10.5 L ABG Base Excess 0.9 ABG Hemoglobin 7.5 L ABG Carboxyhemoglobin 1.8 H POC ABG HHb (Measured) 0.2 ABG Methemoglobin 1.2 ABG O2 Capacity 10.5 L Hgb O2 Saturation 96.8 FiO2 40.0 Sodium Potassium Chloride Carbon Dioxide Anion Gap BUN Creatinine Est GFR ( Amer) Est GFR (Non-Af Amer) POC Glucose (mg/dL) 307 H 294 H Random Glucose Calcium Phosphorus Magnesium Total Bilirubin AST ALT Alkaline Phosphatase Total Protein Albumin Globulin Albumin/Globulin Ratio 08/04/17 11:31 WBC RBC Hgb Hct MCV MCH MCHC RDW Plt Count MPV Gran % Lymph % (Auto) [place] % (Auto) Eos % (Auto) Baso % (Auto) Gran # Lymph # [place] # Eos # Baso # pCO2 pO2 HCO3 ABG pH ABG Total CO2 ABG O2 Saturation ABG O2 Content ABG Base Excess ABG Hemoglobin ABG Carboxyhemoglobin POC ABG HHb (Measured) ABG Methemoglobin ABG O2 Capacity Hgb O2 Saturation FiO2 Sodium Potassium Chloride Carbon Dioxide Anion Gap BUN Creatinine Est GFR ( Amer) Est GFR (Non-Af Amer) POC Glucose (mg/dL) 269 H Random Glucose Calcium Phosphorus Magnesium Total Bilirubin AST ALT Alkaline Phosphatase Total Protein Albumin Globulin Albumin/Globulin Ratio Fingerstick Blood Sugar Results: 294 Review of Systems - Review of Systems Review of Systems: Please refer to [facility] Critical Care Progress Note - Ventilator Checklist Head of Bed 30 Degrees: Yes PUD Prophalyxis: Yes DVT Prophylaxis: Yes - Extremities/Vascular Does the Patient have a Central Venous Catheter?: No Does the Patient need a Central Venous Catheter?: No Does the Patient have a Huerta Catheter?: Yes Does the Patient need a Huerta Catheter?: Yes - Prophylaxis GI Prophylaxis GI: PPI - Prophylaxis DVT Prophylaxis DVT: SCDs - Nutrition Nutrition: Nutrition Category Date Time Status NPO Diet [DIET] Diets 08/01/17 Lunch Ordered Assessment/Plan - Assessment and Plan (Free Text) Assessment: 67 year old female with a past medical history of endometrial carcinoma, DM2, HTN and HLD who presented with nausea, emesis, headache, and increasingly obtunded state. She was found to have intracranial hemorrhage at previous site of craniotomy with significant midline shift. She was intubated for airway protection. Biopsies revealed that the mass removed was metastatic disease. Patient was also found to have blood cultures positive for gram positive cocci. Surgery is consulted for removal and possible replacement of left chest wall port. Patient was made DNR/DNI by her on 08/03 and palliative care was consulted. Radiation/Oncology has seen patient and recommends possible palliative radiation based on patients clinical improvement in the CCU. 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, 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 -Discontinue Decadron -Contine Keppra and Ofirmev PRN -Continue to maintain euglycemia, normothermia and aspiration precautions with HOB above 30 degrees -Neurosurgery recommending no intervention and conservative management -Neurosurgery and Neurology consulted, all recommendations appreciated Pulm: -Chest X-Ray notable for no active pulmonary disease -Extubated and on NC at 2L with adequate oxygenation -Maintain oxygen saturation above 92% Cardio: -EKG showing normal sinus rhythm -Previous ECHO done in June showed LVEF of 50% GI: -Continue Protonix -NPO diet -CHECK SERVICES CLERK will reevaluate when patient is extubated for swallow evaluation Renal: -BUN/Creatinine stable at 37/0.9 -Continue to monitor and replenish electrolytes as clinically indicated with daily CMP's -Continue Huerta, with 1200cc of UOP over the past 24 hours Endo: -Restart Insulin drip to maintain euglycemia -Discontinue SSI SC -Continue Accucheck Q1H Heme/Onc: -See path report above -Radiation/Oncology recommending palliative radiation based on clinical improvement in CCU -Last chemo treatment was three months ago -Patient not a candidate for pharmacotherapy for DVT prophylaxis with ICH -H/H and platelets stable -Continue to monitor with daily CBC's -Heme/Onc, Radiation/Oncology and palliative care consulted, all recommendations appreciated ID: -Blood cultures are negative for growth for 24 hours -Currently with resolved leukocytosis, afebrile, normotensive and with no tachycardia -Continue IV Vancomycin and IV Aztreonam -ID, all recommendations appreciated Lines: -Continue all peripheral lines GI Prophylaxis: Protonix DVT Prophylaxis: SCD's Disposition: Patient's DNR/DNI order rescinded by family and patient is now full code. Patient may receive palliative radiation based on clinical improvement. Patient with poor prognosis overall. Patient seen and case discussed with attending, Dr. Lambert. - Date & Time Date: 08/04/17 Time: 11:52
--- NOTE | 2017-08-04 13:32 | CP.PCM.PN ---
Subjective - Date & Time of Evaluation Date of Evaluation: 08/04/17 Time of Evaluation: 11:45 - Subjective Subjective: Infectious Disease Follow Up August 04, 2017 73 yo female presented with fall and altered mental status. She was found at home on floor by family who heard her fall. The patient was brought into the ER and found to be in uncontrolled hypertension and requiring intubation on arrival in the ER. The patient was found to hae a 4.4 cm left occipital intracranial hemorrhage with intraventricular extension. Patient is recovering but still having episodes of low grade fevers. Patient herself is not making any new complaints. She still has residual right sided weakness. Afebrile in the past 48 hours. Repeat cultures sent. Cannot rule out central fever. Cultures negative to date from sets taken on 07/28/2017 and 07/29/2017. She was extubated today. Patient opens her eyes and can follow an occasional command such as squeezing hand. Noted family has rescinded DNR/DNI. Noted Radiation Oncology considering palliative radiation if the patient shows some reasonable improvement during this hospitalization. Objective - Vital Signs/Intake and Output Vital Signs (last 24 hours): Temp Pulse Resp BP Pulse Ox 98.1 F 49 L 23 158/64 H 92 L 08/04/17 08:00 08/04/17 07:46 08/04/17 06:01 08/04/17 06:01 08/04/17 06:01 Intake and Output: 08/04/17 08/04/17 06:59 18:59 Intake Total 9 73.9 Balance 9 73.9 - Medications Medications: Current Medications Levetiracetam (Keppra 500mg Ivpb) 500 mg in 100 mls @ 460 mls/hr IVPB Q12 [facility] Last Admin: 08/04/17 10:14 Dose: 460 mls/hr Insulin Human Regular 100 (units/ Sodium Chloride) 100 mls @ 5 mls/hr IV .Q20H PRN; Protocol; 5 UNITS/HR PRN Reason: TITRATE PER MD ORDER Last Titration: 08/04/17 11:32 Dose: 16 units/hr, 16 mls/hr Sodium Chloride (Hypertonic Saline 3%) 500 mls @ 50 mls/hr IV .Q10H [facility] Last Admin: 08/03/17 18:38 Dose: Not Given Vancomycin HCl (Vancomycin 1gm) 1 gm in 250 mls @ 167 mls/hr IVPB Q12H [facility] PRN Reason: Protocol Last Admin: 08/04/17 05:22 Dose: 167 mls/hr Aztreonam (Azactam 1 Gm) 100 mls @ 100 mls/hr IVPB Q8 [facility] PRN Reason: Protocol Last Admin: 08/04/17 13:00 Dose: 100 mls/hr Acetaminophen (Ofirmev) 1,000 mg in 100 mls @ 400 mls/hr IVPB Q6H PRN PRN Reason: Pain, moderate (4-7) Stop: 08/05/17 17:42 Last Admin: 08/03/17 18:07 Dose: 400 mls/hr Insulin Human Regular (Humulin R Low) 0 units SC Q6H [facility] PRN Reason: Protocol Last Admin: 08/04/17 08:14 Dose: 3 units Nystatin/Triamcinolone Acetonide (Nystatin/Triamcinolone Cream) 1 ea TOP BID PRN PRN Reason: Excoriation Pantoprazole Sodium (Protonix Inj) 40 mg IVP DAILY [facility] Last Admin: 08/04/17 10:13 Dose: 40 mg - Labs Labs: 08/04/17 05:30 08/04/17 05:30 PT 10.5 Seconds (9.9-11.8) 08/01/17 08:20 INR 0.97 (0.93-1.08) 08/01/17 08:20 APTT 27.3 Seconds (23.7-30.8) 08/01/17 08:20 - Constitutional Appears: Confused, Chronically Ill - Head Exam Head Exam: ATRAUMATIC, NORMOCEPHALIC - Eye Exam Eye Exam: EOMI, PERRL Pupil Exam: NORMAL ACCOMODATION, PERRL - ENT Exam ENT Exam: Mucous Membranes Moist, Normal External Ear Exam, TM's Normal Bilaterally - Neck Exam Neck Exam: Full ROM, Normal Inspection - Respiratory Exam Respiratory Exam: Decreased Breath Sounds, NORMAL BREATHING PATTERN. absent: Rales, Rhonchi, Wheezes - Cardiovascular Exam Cardiovascular Exam: REGULAR RHYTHM, RRR, +S1, +S2 - GI/Abdominal Exam GI & Abdominal Exam: Soft, Normal Bowel Sounds. absent: Distended, Tenderness - Extremities Exam Extremities Exam: Full ROM, Normal Inspection - Neurological Exam Neurological Exam: Alert, Awake Additional comments: Limited understanding. Aphasic. - Psychiatric Exam Additional comments: aphasic, lethargic - Skin Skin Exam: Intact, Normal Color Assessment and Plan - Assessment and Plan (Free Text) Assessment: 73 yo female with low grade fevers of up to 100.4 F after suffering from a 4.4cm left occipital intracranial hemorrhage with intraventricular extension. The patient initially had fevers up to 101.7 F. Clinically, the patient has been improving. Supportive care. She was intubated on admission. She was extubated on 07/25/2017. She speaks greenlandic mostly. The family states that the patient is acting and speaking appropriately other than the slurring of speech due to her right sided residual weakness. Alfredo cultures sent. There was a mild initial leukocytosis on admission but this has slowly improved. Fever trend has shown improvement. The cultures done to date have been negative so far. No consolidation seen on Chest X-ray. Patient answering question during interview and examination. Supportive care. Currently on Unasyn for antibiotic coverage. Noted C. Diff and repeat urine culture sent. No adequate sample for C. diff testing. Would obtain urinalysis. Would continue Unasyn for now. The current temperature is more likely secondary to the recent intracranial hemorrhage. Leukocytosis of 10.2 today but with a normal differential. Multiple culture sets performed to date are negative. Afebrile for the past 48 hours now. Cultures negative to date at greater than 48 hours. Cannot rule out central fever which is the most likely scenario. It appears as the hemorrhage improves the fevers are improving. Last CT done on 07/30/2017 showing interval evolution of known subacute hematoma in left occipital lobe without midline shift or herniation. Resolving intraventricular hemorrhage with residual mild intraventricular hemorrhage. If fevers spike again to over 102, repeat blood and urine cultures. She remains on Cefepime for antibiotic coverage. She has been afebrile for the past 48 hours. Extubated today. Able to follow occasional simple command. Supportive care. Poor intermodal customer service prognosis. Thank you for allowing me to participate in the care of the patient, we will follow with you.
--- NOTE | 2017-08-04 14:00 | CP.PCM.PN ---
Subjective - Date & Time of Evaluation Date of Evaluation: 08/04/17 Time of Evaluation: 14:00 - Subjective Subjective: Opens eyes family at bedside Objective - Vital Signs/Intake and Output Vital Signs (last 24 hours): Temp Pulse Resp BP Pulse Ox 98.1 F 49 L 23 158/64 H 92 L 08/04/17 08:00 08/04/17 07:46 08/04/17 06:01 08/04/17 06:01 08/04/17 06:01 Intake and Output: 08/04/17 08/04/17 06:59 18:59 Intake Total 9 73.9 Balance 9 73.9 - Medications Medications: Current Medications Levetiracetam (Keppra 500mg Ivpb) 500 mg in 100 mls @ 460 mls/hr IVPB Q12 [facility] Last Admin: 08/04/17 10:14 Dose: 460 mls/hr Insulin Human Regular 100 (units/ Sodium Chloride) 100 mls @ 5 mls/hr IV .Q20H PRN; Protocol; 5 UNITS/HR PRN Reason: TITRATE PER MD ORDER Last Titration: 08/04/17 11:32 Dose: 16 units/hr, 16 mls/hr Sodium Chloride (Hypertonic Saline 3%) 500 mls @ 50 mls/hr IV .Q10H [facility] Last Admin: 08/03/17 18:38 Dose: Not Given Vancomycin HCl (Vancomycin 1gm) 1 gm in 250 mls @ 167 mls/hr IVPB Q12H [facility] PRN Reason: Protocol Last Admin: 08/04/17 13:12 Dose: 167 mls/hr Aztreonam (Azactam 1 Gm) 100 mls @ 100 mls/hr IVPB Q8 [facility] PRN Reason: Protocol Last Admin: 08/04/17 13:00 Dose: 100 mls/hr Acetaminophen (Ofirmev) 1,000 mg in 100 mls @ 400 mls/hr IVPB Q6H PRN PRN Reason: Pain, moderate (4-7) Stop: 08/05/17 17:42 Last Admin: 08/03/17 18:07 Dose: 400 mls/hr Insulin Human Regular (Humulin R Low) 0 units SC Q6H [facility] PRN Reason: Protocol Last Admin: 08/04/17 08:14 Dose: 3 units Nystatin/Triamcinolone Acetonide (Nystatin/Triamcinolone Cream) 1 ea TOP BID PRN PRN Reason: Excoriation Pantoprazole Sodium (Protonix Inj) 40 mg IVP DAILY [facility] Last Admin: 08/04/17 10:13 Dose: 40 mg - Labs Labs: 08/04/17 05:30 08/04/17 05:30 PT 10.5 Seconds (9.9-11.8) 08/01/17 08:20 INR 0.97 (0.93-1.08) 08/01/17 08:20 APTT 27.3 Seconds (23.7-30.8) 08/01/17 08:20 - Eye Exam Eye Exam: Normal appearance - ENT Exam ENT Exam: Mucous Membranes Dry - Respiratory Exam Respiratory Exam: NORMAL BREATHING PATTERN - Cardiovascular Exam Cardiovascular Exam: +S1, +S2 - GI/Abdominal Exam GI & Abdominal Exam: Normal Bowel Sounds - Extremities Exam Extremities Exam: Pedal Edema Assessment and Plan (1) Uterine cancer Assessment & Plan: stage IV with brain metastasis brain bleed radiation possible once pt more clinically stable Status: Acute (2) Anemia Assessment & Plan: chronic disease Status: Acute
--- NOTE | 2017-08-04 14:21 | CP.PCM.PN ---
<Everett Alva - Last Filed: 08/04/17 14:18> Subjective - Date & Time of Evaluation Date of Evaluation: 08/04/17 Time of Evaluation: 11:00 - Subjective Subjective: Patient has been seen and examined. Patient has been extubated and now is responsive to verbal and tactile stimulation. Patient is still non-verbal and is minimally able to move her right lower extremity when asked. Objective - Vital Signs/Intake and Output Vital Signs (last 24 hours): Temp Pulse Resp BP Pulse Ox 99.1 F 72 19 139/74 97 08/04/17 14:01 08/04/17 14:01 08/04/17 14:01 08/04/17 14:01 08/04/17 14:01 Intake and Output: 08/04/17 08/04/17 06:59 18:59 Intake Total 9 73.9 Balance 9 73.9 - Medications Medications: Current Medications Levetiracetam (Keppra 500mg Ivpb) 500 mg in 100 mls @ 460 mls/hr IVPB Q12 [facility] Last Admin: 08/04/17 10:14 Dose: 460 mls/hr Insulin Human Regular 100 (units/ Sodium Chloride) 100 mls @ 5 mls/hr IV .Q20H PRN; Protocol; 5 UNITS/HR PRN Reason: TITRATE PER MD ORDER Last Titration: 08/04/17 11:32 Dose: 16 units/hr, 16 mls/hr Sodium Chloride (Hypertonic Saline 3%) 500 mls @ 50 mls/hr IV .Q10H [facility] Last Admin: 08/03/17 18:38 Dose: Not Given Vancomycin HCl (Vancomycin 1gm) 1 gm in 250 mls @ 167 mls/hr IVPB Q12H [facility] PRN Reason: Protocol Last Admin: 08/04/17 13:12 Dose: 167 mls/hr Aztreonam (Azactam 1 Gm) 100 mls @ 100 mls/hr IVPB Q8 [facility] PRN Reason: Protocol Last Admin: 08/04/17 13:00 Dose: 100 mls/hr Acetaminophen (Ofirmev) 1,000 mg in 100 mls @ 400 mls/hr IVPB Q6H PRN PRN Reason: Pain, moderate (4-7) Stop: 08/05/17 17:42 Last Admin: 08/03/17 18:07 Dose: 400 mls/hr Insulin Human Regular (Humulin R Low) 0 units SC Q6H [facility] PRN Reason: Protocol Last Admin: 08/04/17 08:14 Dose: 3 units Nystatin/Triamcinolone Acetonide (Nystatin/Triamcinolone Cream) 1 ea TOP BID PRN PRN Reason: Excoriation Pantoprazole Sodium (Protonix Inj) 40 mg IVP DAILY [facility] Last Admin: 08/04/17 10:13 Dose: 40 mg - Labs Labs: 08/04/17 05:30 08/04/17 05:30 PT 10.5 Seconds (9.9-11.8) 08/01/17 08:20 INR 0.97 (0.93-1.08) 08/01/17 08:20 APTT 27.3 Seconds (23.7-30.8) 08/01/17 08:20 - Head Exam Additional comments: surgical wound in right parietal region. - Eye Exam Eye Exam: Normal appearance - Respiratory Exam Respiratory Exam: Clear to Ausculation Bilateral. absent: Rales, Rhonchi, Wheezes - Cardiovascular Exam Cardiovascular Exam: RRR, +S1, +S2 - GI/Abdominal Exam GI & Abdominal Exam: Soft. absent: Tenderness - Extremities Exam Extremities Exam: absent: Pedal Edema Additional comments: b/l Lower extremity weakness - Neurological Exam Neurological Exam: Altered, Awake. absent: Alert, Oriented x3 - Psychiatric Exam Psychiatric exam: Flat Affect Assessment and Plan - Assessment and Plan (Free Text) Assessment: This is a 67 yo F with PMH of Uterine Ca (s/p chemo/rads, total hysterectomy, and b/l salpingo-oophrectomy), DM2, HTN, HLD, and disc disease who represents to [facility] with nausea, emesis, headache, and increasingly obtunded state. 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 She was intubated for airway protection. Plan: Hemorrhagic CVA with midline Shift - CT head notable for new onset large elliptical-shaped hemorrhage in right frontoparietal lobe with surrounding edema and mass effect. Brain MRI notable for interval appearance of foci of acute hemorrhage at the right posterior frontal/parietal lobe (consistent with hemorrhage seen on CT), and moderate to large edema surrounding the foci of hemorrhage resulting in mass effect on the lateral ventricle and approximately 14 millimeter [id number] midline shift. -Admission CXR shows ETT and NGT placement. Reads Mild bibasilar atelectasis with what appears to represent small left and possibly tiny right effusion. -Consulted Neurology and Neurosurgery recs appreciated -Neurosurgery says no acute indication for surgery at this time. Cont. with supportive care. -intubated today and responding to verbal and tactile stimulation. -PT/OT -Cont. Decadron per neuro SIRS (resolved) Patient met SIRS criteria with Tachycardia, leukocytosis, and fever Fluids and Insulin per ICU Patient is now Afebrile with a normal HR and no leukocytosis Blood cultures on (08/01) show Staphylococcus Sp Coag Neg. MRSA of nares negative. Blood cultures on 08/03 show no growth. Urine cultures are pending. Cartoid US showed B/L 20-39% proximal ICA stenosis and anterograde flow in both cerebral arteries. Continue Vanc and Azactam Dispo: The patients condition is slight improved. Prognosis is still poor. Begin discussion about palliative radiation. Patient seen, discussed and reviewed with attending Everett Alva PGY-1 <Davon DIETRICH,[facility] - Last Filed: 08/04/17 15:22> Objective - Vital Signs/Intake and Output Vital Signs (last 24 hours): Temp Pulse Resp BP Pulse Ox 99.1 F 72 19 139/74 97 08/04/17 14:01 08/04/17 14:01 08/04/17 14:01 08/04/17 14:01 08/04/17 14:01 Intake and Output: 08/04/17 08/04/17 06:59 18:59 Intake Total 9 73.9 Balance 9 73.9 - Medications Medications: Current Medications Levetiracetam (Keppra 500mg Ivpb) 500 mg in 100 mls @ 460 mls/hr IVPB Q12 [facility] Last Admin: 08/04/17 10:14 Dose: 460 mls/hr Insulin Human Regular 100 (units/ Sodium Chloride) 100 mls @ 5 mls/hr IV .Q20H PRN; Protocol; 5 UNITS/HR PRN Reason: TITRATE PER MD ORDER Last Titration: 08/04/17 11:32 Dose: 16 units/hr, 16 mls/hr Sodium Chloride (Hypertonic Saline 3%) 500 mls @ 50 mls/hr IV .Q10H [facility] Last Admin: 08/03/17 18:38 Dose: Not Given Vancomycin HCl (Vancomycin 1gm) 1 gm in 250 mls @ 167 mls/hr IVPB Q12H [facility] PRN Reason: Protocol Last Admin: 08/04/17 13:12 Dose: 167 mls/hr Aztreonam (Azactam 1 Gm) 100 mls @ 100 mls/hr IVPB Q8 [facility] PRN Reason: Protocol Last Admin: 08/04/17 13:00 Dose: 100 mls/hr Acetaminophen (Ofirmev) 1,000 mg in 100 mls @ 400 mls/hr IVPB Q6H PRN PRN Reason: Pain, moderate (4-7) Stop: 08/05/17 17:42 Last Admin: 08/03/17 18:07 Dose: 400 mls/hr Insulin Human Regular (Humulin R Low) 0 units SC Q6H [facility] PRN Reason: Protocol Last Admin: 08/04/17 08:14 Dose: 3 units Nystatin/Triamcinolone Acetonide (Nystatin/Triamcinolone Cream) 1 ea TOP BID PRN PRN Reason: Excoriation Pantoprazole Sodium (Protonix Inj) 40 mg IVP DAILY [facility] Last Admin: 08/04/17 10:13 Dose: 40 mg - Labs Labs: 08/04/17 05:30 08/04/17 05:30 PT 10.5 Seconds (9.9-11.8) 08/01/17 08:20 INR 0.97 (0.93-1.08) 08/01/17 08:20 APTT 27.3 Seconds (23.7-30.8) 08/01/17 08:20 Attending/Attestation - Attestation I have personally seen and examined this patient.: Yes I have fully participated in the care of the patient.: Yes I have reviewed all pertinent clinical information, including history, physical exam and plan: Yes Notes (Text): 08/04/17 15:19 Patient was seen and examined with remote medical coder. 67 yo F with PMH of Uterine Ca (s/p chemo/rads, total hysterectomy, and b/l salpingo-oophrectomy), DM2, HTN, HLD, and disc disease, underwent surgery for right Parietal mass causing left hemipegia last week and was discharged yesterday to rehab for rehabilitation, her power was improving at the time of discharge .She was admitted with change of mental status yesterday morning , was intubated, she was found to have hemorrhagic CVA at the site of prior surgery with significant midline shift, patient was evaluated by Neuro surgery, no plan for intervention.Patient pathology report showed metastatic uterine cancer..Patient was extubated yesterday, follow command, motor examination reveals left sided hemiplegia as well as new right sided weakness.Patient was evaluated by oncology and radiation oncology , there is plan for radiation at this time as patient is critially sick.We will get swallow evaluation. Hypernatremia is improving. Management plan was discussed with family who is at bed side. Patient is full code at this time. Prognosis is guarded.
--- NOTE | 2017-08-04 15:18 | CP.PCM.PN ---
<Kenan Thurman - Last Filed: 08/04/17 19:09> Subjective - Date & Time of Evaluation Date of Evaluation: 08/04/17 Time of Evaluation: 09:00 - Subjective Subjective: Neurology Progress Note for Dr. Giang Service Patient seen and examined at bedside. No acute events reported overnight. Remains extubated, tolerating well. Currently off BiPAP. Somnolent but arousable. Remains non-verbal, L-sided paresis persists. Objective - Vital Signs/Intake and Output Vital Signs (last 24 hours): Temp Pulse Resp BP Pulse Ox 99.1 F 72 19 139/74 97 08/04/17 14:01 08/04/17 14:01 08/04/17 14:01 08/04/17 14:01 08/04/17 14:01 Intake and Output: 08/04/17 08/04/17 06:59 18:59 Intake Total 9 73.9 Balance 9 73.9 - Medications Medications: Current Medications Levetiracetam (Keppra 500mg Ivpb) 500 mg in 100 mls @ 460 mls/hr IVPB Q12 [facility] Last Admin: 08/04/17 10:14 Dose: 460 mls/hr Insulin Human Regular 100 (units/ Sodium Chloride) 100 mls @ 5 mls/hr IV .Q20H PRN; Protocol; 5 UNITS/HR PRN Reason: TITRATE PER MD ORDER Last Titration: 08/04/17 11:32 Dose: 16 units/hr, 16 mls/hr Sodium Chloride (Hypertonic Saline 3%) 500 mls @ 50 mls/hr IV .Q10H [facility] Last Admin: 08/03/17 18:38 Dose: Not Given Vancomycin HCl (Vancomycin 1gm) 1 gm in 250 mls @ 167 mls/hr IVPB Q12H [facility] PRN Reason: Protocol Last Admin: 08/04/17 13:12 Dose: 167 mls/hr Aztreonam (Azactam 1 Gm) 100 mls @ 100 mls/hr IVPB Q8 [facility] PRN Reason: Protocol Last Admin: 08/04/17 13:00 Dose: 100 mls/hr Acetaminophen (Ofirmev) 1,000 mg in 100 mls @ 400 mls/hr IVPB Q6H PRN PRN Reason: Pain, moderate (4-7) Stop: 08/05/17 17:42 Last Admin: 08/03/17 18:07 Dose: 400 mls/hr Insulin Human Regular (Humulin R Low) 0 units SC Q6H [facility] PRN Reason: Protocol Last Admin: 08/04/17 08:14 Dose: 3 units Nystatin/Triamcinolone Acetonide (Nystatin/Triamcinolone Cream) 1 ea TOP BID PRN PRN Reason: Excoriation Pantoprazole Sodium (Protonix Inj) 40 mg IVP DAILY [facility] Last Admin: 08/04/17 10:13 Dose: 40 mg - Labs Labs: 08/04/17 05:30 08/04/17 05:30 PT 10.5 Seconds (9.9-11.8) 08/01/17 08:20 INR 0.97 (0.93-1.08) 08/01/17 08:20 APTT 27.3 Seconds (23.7-30.8) 08/01/17 08:20 - Additional Findings Additional findings: - Constitutional Appears: No Acute Distress, Chronically Ill, Extubated, Resting but easily arousable - Head Exam Head Exam: ATRAUMATIC, NORMAL INSPECTION, NORMOCEPHALIC - Eye Exam Eye Exam: Normal appearance, PERRL. absent: Conjunctival injection, Scleral icterus Pupil Exam: PERLL, Normal Accommodation. absent: Irregular, Unequal - ENT Exam ENT Exam: Extubated. absent: Mucous Membranes Dry - Neck Exam Neck exam: Negative for: Lymphadenopathy, Thyromegaly - Respiratory Exam Respiratory Exam: Decreased breath sounds in all carl, but otherwise clear to ausculation bilaterally. absent: Accessory Muscle Use, Chest Wall Tenderness, Rales, Rhonchi, Wheezes - Cardiovascular Exam Cardiovascular Exam: REGULAR RHYTHM, RRR, +S1, +S2. absent: Bradycardia, Tachycardia, Irregular Rhythm, JVD, +S4 - GI/Abdominal Exam GI & Abdominal Exam: Normal Bowel Sounds, Soft. absent: Distended, Firm, Rigid - Extremities Exam Extremities exam: Positive for: pedal pulses present. Negative for: joint swelling, pedal edema - Neurological Exam Extubated, not sedated; resting but easily arousable, awake and alert after Following commands as able, moving R extremities, unable to move L extremities 2-3/5 RUE and RLE strength, 3/5 R price clerk strength - Psychiatric Exam unable to assess as non-verbal - Skin Skin Exam: Dry, Intact, Normal Color, Warm Assessment and Plan - Assessment and Plan (Free Text) Assessment: This is a 67 yo F with PMH of Uterine Ca (s/p chemo/rads, total hysterectomy, and b/l salpingo-oophrectomy), DM2, HTN, HLD, and disc disease who represents to [facility] with nausea, emesis, headache, and increasingly obtunded state. 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 As per Neurosurgery, no acute surgical intervention at this time, as this is 2/ 2 malignant metastatic mass with poor prognosis, and surgery would not likely be helpful, as patient is at high risk for immediate morbidity. Continue medical management for now; strict BP, BG, and temperature control with sodium goal of 150. Patient will need to follow up with Rad-onc for palliative radiation therapy for her malignant metastatic mass. Plan: 1) Sodium goal 140-150; 153 today, continue to hold hypertonic saline 2) Maintain Blood glucose 140-180; currently too elevated 3) Maintain normothermia 4) Head of bed to 30 degrees for aspiration precaution 5) Speech/swallow assessment now that extubated 6) Additional medical management as per ICU 7) Follow up with Rad-onc for palliative radiation therapy after discharge Patient reviewed and discussed with attending, Dr. Giang. At this time, patient remains stable, we will follow peripherally. Please reconsult if she experiences any acute changes in condition. <Jovani Giang - Last Filed: 08/04/17 22:36> Objective - Vital Signs/Intake and Output Vital Signs (last 24 hours): Temp Pulse Resp BP Pulse Ox 98.1 F 62 19 139/74 97 08/04/17 16:00 08/04/17 18:45 08/04/17 14:01 08/04/17 14:01 08/04/17 14:01 Intake and Output: 08/04/17 08/05/17 18:59 06:59 Intake Total 96.0 Balance 96.0 - Medications Medications: Current Medications Levetiracetam (Keppra 500mg Ivpb) 500 mg in 100 mls @ 460 mls/hr IVPB Q12 [facility] Last Admin: 08/04/17 10:14 Dose: 460 mls/hr Sodium Chloride (Hypertonic Saline 3%) 500 mls @ 50 mls/hr IV .Q10H [facility] Last Admin: 08/03/17 18:38 Dose: Not Given Vancomycin HCl (Vancomycin 1gm) 1 gm in 250 mls @ 167 mls/hr IVPB Q12H [facility] PRN Reason: Protocol Last Admin: 08/04/17 13:12 Dose: 167 mls/hr Aztreonam (Azactam 1 Gm) 100 mls @ 100 mls/hr IVPB Q8 [facility] PRN Reason: Protocol Last Admin: 08/04/17 13:00 Dose: 100 mls/hr Acetaminophen (Ofirmev) 1,000 mg in 100 mls @ 400 mls/hr IVPB Q6H PRN PRN Reason: Pain, moderate (4-7) Stop: 08/05/17 17:42 Last Admin: 08/03/17 18:07 Dose: 400 mls/hr Insulin Human Lispro (Humalog High) 0 units SC Q4H [facility] PRN Reason: Protocol Last Admin: 08/04/17 19:57 Dose: 4 units Nystatin/Triamcinolone Acetonide (Nystatin/Triamcinolone Cream) 1 ea TOP BID PRN PRN Reason: Excoriation Pantoprazole Sodium (Protonix Inj) 40 mg IVP DAILY [facility] Last Admin: 08/04/17 10:13 Dose: 40 mg - Labs Labs: 08/04/17 05:30 08/04/17 05:30 PT 10.5 Seconds (9.9-11.8) 08/01/17 08:20 INR 0.97 (0.93-1.08) 08/01/17 08:20 APTT 27.3 Seconds (23.7-30.8) 08/01/17 08:20 Attending/Attestation - Attestation I have personally seen and examined this patient.: Yes I have fully participated in the care of the patient.: Yes I have reviewed all pertinent clinical information, including history, physical exam and plan: Yes
[2017-08-04] MEDS ORDERED: Dextrose 50% SYRINGE Inj (50 ml) ONE (15:22)
[2017-08-04] MEDS ORDERED: Dextrose 50% SYRINGE Inj (50 ml) IVP ONE (15:33)
[2017-08-04] MEDS: Insulin Regular 100 UNITS in Sodium Chloride 0.9% 99 ML IV PRN (15:57)
--- NOTE | 2017-08-04 19:24 | EEG ---
ELECTROENCEPHALOGRAM DATE: 08/04/2017 CONDITION OF THE RECORDING: Drowsy EEG. DIAGNOSIS: Altered mental status. MEDICATIONS: Reviewed by nurse per reconciliation sheet. The patient is on Keppra. INTERPRETATION: This is a 16-channel international recording. Background activity of this session was composed of 5 to 6 cycles per second. There was limited amount of beta activity of 16 to 20 cycles per second seen in this recording. There was increased amount of theta activity of 5 to 7 cycles per second seen in this tracing. There is occasional delta waves throughout the EEG. Drowsiness was characterized by mixed beta and theta activities. Sleep was characterized by vertex transient waves, sleep spindles, and bilateral slowing. Photic stimulation showed no change in the tracing. No paroxysmal activity noted in this recording. CONCLUSION: This is an abnormal EEG due to presence of diffuse slowing consistent with severe bilateral cerebral dysfunction. Please clinically correlate. Jovani Giang MD
[2017-08-04] MEDS: Insulin Lispro (HUMAlog) HIGH Coverage SC SCH ×3 (19:57→23:15)
[2017-08-05] MEDS: Vancomycin 1gm in NS 250ml 1 GM/250 ML BAG IVPB SCH ×3 (01:00→23:57)
--- NOTE | 2017-08-05 03:15 | OP ---
SURGEON: . DESCRIPTION OF PROCEDURE: The patient was identified in the ICU, was identified by name, name of the procedure, laterality. The port in the left upper chest was examined. The patient had a time-out, the patient was identified by name, name of the procedure, laterality, my nicholas. The area was infiltrated with Xylocaine after being prepped and draped using sterile technique. The old incision was opened with a #15 bladed followed by lateral dissection. There was very little bleeding. The entire catheter was identified, cleaned and removed, this was then tied, the area was then closed with Vicryl and sahara. A light pressure dressing was applied. The patient was left in situ on the respirator without incident. Sponge and needle count was declared correct. John Schafer MD
[2017-08-05] MEDS: Aztreonam 1 Gm in NS 100mL 100 ML IVPB SCH ×3 (05:28→21:56)
[2017-08-05 06:06] LABS: GRAN # 9.24 (1.4-6.5); GRAN % 90.3 % (50.0-68.0); HEMATOCRIT 27.1 % (36.0-48.0); LYMPH # 0.6 (1.2-3.4); LYMPH % 6.1 % (22.0-35.0); MEAN CELL VOLUME 92.5 fl (80.0-105.0); MEAN CORPUSCULAR HGB CONC 31.4 g/dl (31.0-37.0); MEAN PLATELET VOLUME 9.2 fl (7.0-11.0); MONO # 0.4 (0.1-0.6); MONO % 3.6 % (1.0-6.0); PLATELET COUNT 184 10^3/uL (120.0-450.0); RED CELL DISTRIBUTION WIDTH 13.6 % (11.5-14.5); WHITE BLOOD COUNT 10.2 10^3/ul (4.5-11.0)
[2017-08-05 06:23] LABS: ALB/GLOB RATIO 1.2 (1.1-1.8); ALKALINE PHOSPHATASE 92 U/L (38-126); ALT/SGPT 40 U/L (7-56); AST/SGOT 36 U/L (14-36); BILIRUBIN,TOTAL 0.4 mg/dL (0.2-1.3); BLOOD UREA NITROGEN 45 mg/dL (7-21); CALCIUM 9.2 mg/dL (8.4-10.5); CARBON DIOXIDE 26 mmol/L (21-33); CHLORIDE 118 mmol/L (98-107); GFR AFRICAN-AMERICAN > 60; GLUCOSE,RANDOM 230 mg/dL (70-110); MAGNESIUM 2.1 mg/dL (1.7-2.2); PHOSPHOROUS 3.3 mg/dL (2.5-4.5); POTASSIUM 3.3 mmol/L (3.6-5.0); SODIUM 155 mmol/L (132-148); TOTAL PROTEIN 6.3 g/dL (5.8-8.3)
[2017-08-05] MEDS: Insulin Lispro (HUMAlog) HIGH Coverage SC SCH ×5 (07:22→22:51)
[2017-08-05 09:01] LABS: BAND 1 % (0-2); NEUTROPHIL 89 % (50.0-70.0)
[2017-08-05 09:13] LABS: ANISOCYTOSIS 1+; HYPOCHROMIA 1+; PLATELET ESTIMATE NORMAL (NORMAL); POLYCHROMASIA SLIGHT
[2017-08-05] MEDS: levETIRAcetam 500mg IVPB 500 MG/100 ML BAG IVPB SCH ×2 (09:25→21:57)
--- NOTE | 2017-08-05 12:46 | PN ---
HOME MANAGER NOTE DATE: 08/05/2017 SUBJECTIVE: The patient is awake and responds appropriately to the spoken words. She is on BiPAP at this time, but we will give her a trial on nasal cannula for respiratory support. The patient is comfortable, resting in bed. No complaints of pain. No nauseous or vomiting. Does have NG tube in. PHYSICAL EXAMINATION VITAL SIGNS: Her temperature is 99.5, her pulse is 77, respirations are 19, and BP is 157/78. SKIN: Warm and dry. HEENT: Head is atraumatic and normocephalic. Eyes are reactive to light. Ears, nose and throat seen to be within normal limits. NECK: Supple. No JVD. No thyroid enlargement. No lymph nodes. HEART: Regular rate and rhythm. Normal S1, S2. LUNGS: Reveal mild decreased breath sounds bilaterally at the bases. No significant rales. ABDOMEN: Soft. Decrease bowel sounds. GENITALIA: Deferred. RECTAL: Deferred. MUSCULOSKELETAL: No joint deformities. EXTREMITIES: Reveal positive lower extremity edema. NEUROLOGICAL: The patient is awake and responding and seems to move all extremities. LABORATORY DATA: As far as her laboratories are concerned; her white is 10.2, hemoglobin 8.5, hematocrit 27.1 with platelets of 184,000. The patient's sodium is 155, potassium 3.3, chloride 118, CO2 of 26 with a BUN of 45, creatinine of 0.9 and glucose of 236. 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 She has respiratory insufficiency, anemia, diabetes, hypertension, as well as obesity. PLAN: We will continue with aztreonam and vancomycin as antibiotics. The patient is on Protonix and we will continue with O2 via nasal cannula and monitor her respiratory status closely. The patient is getting IV fluids and Keppra as well. We will continue to follow closely and treat aggressively along with the other consultants and primary care doctor. Jovanny Harrington MD
[2017-08-05 12:56] LABS: GRAN # 6.83 (1.4-6.5); GRAN % 90.5 % (50.0-68.0); HEMATOCRIT 24.9 % (36.0-48.0); LYMPH # 0.5 (1.2-3.4); LYMPH % 6.5 % (22.0-35.0); MEAN CELL VOLUME 92.2 fl (80.0-105.0); MEAN CORPUSCULAR HEMOGLOBIN 29.3 pg (25.0-35.0); MEAN CORPUSCULAR HGB CONC 31.7 g/dl (31.0-37.0); MEAN PLATELET VOLUME 9.7 fl (7.0-11.0); MONO # 0.2 (0.1-0.6); RED CELL DISTRIBUTION WIDTH 13.5 % (11.5-14.5); WHITE BLOOD COUNT 7.6 10^3/ul (4.5-11.0)
[2017-08-05 13:05] LABS: ALB/GLOB RATIO 1.1 (1.1-1.8); ALKALINE PHOSPHATASE 84 U/L (38-126); ALT/SGPT 41 U/L (7-56); AST/SGOT 34 U/L (14-36); BILIRUBIN,TOTAL 0.5 mg/dL (0.2-1.3); BLOOD UREA NITROGEN 43 mg/dL (7-21); CALCIUM 8.8 mg/dL (8.4-10.5); CARBON DIOXIDE 27 mmol/L (21-33); CHLORIDE 116 mmol/L (98-107); GFR AFRICAN-AMERICAN > 60; GLUCOSE,RANDOM 240 mg/dL (70-110); POTASSIUM 3.6 mmol/L (3.6-5.0); SODIUM 151 mmol/L (132-148)
--- NOTE | 2017-08-05 17:11 | CP.PCM.CON ---
History of Present Illness - History of Present Illness History of Present Illness: 67 yo F w/ pmh of htn, dm, uterine CA, s/p recent craniotomy for cystic lesion ( pathology consistent with mets), sent to ED due to headaches and altered mental status; found to have hemorrhagic CVA and was intubated, started on hypertonic saline and decadron; patient now extubated; nephrology being consulted for hypernatremia; Prior to recent neurologic symptoms, patient was verbal and coherent per family ; currently not able to verbalize but able to recognize family; not complaining of anything although ROS not obtainable from patient; Patient had been on hypertonic saline until 2 days ago; had been NPO but just started to receive tube feeds yesterday; was started on D5W at 60 cc/hr today; has been urinating well, no recent BM documented; Review of Systems - Review of Systems Systems not reviewed;Unavailable: Altered Mental Status Past Patient History - Infectious Disease Hx of Infectious Diseases: None - Past Medical History & Family History Past Medical History?: Yes - Past Social History Smoking Status: Never Smoked Alcohol: None Home Situation {Lives}: With Family - CARDIAC Hx Hypertension: Yes - PULMONARY Hx Respiratory Disorders: No Hx Asthma: No (didn't mention) - NEUROLOGICAL Hx Neurological Disorder: No Hx Seizures: No Hx Syncope: No - HEENT Hx HEENT Problems: Yes Hx Cataracts: Yes - RENAL Hx Chronic Kidney Disease: No - ENDOCRINE/METABOLIC Hx Diabetes Mellitus Type 2: Yes - HEMATOLOGICAL/ONCOLOGICAL Hx Blood Disorders: Yes Hx Cancer: Yes (uterine ) Hx Chemotherapy: Yes Other/Comment: Uterus cancer- last cheml in february 2017 - INTEGUMENTARY Hx Dermatological Problems: No - MUSCULOSKELETAL/RHEUMATOLOGICAL Hx Musculoskeletal Disorders: Yes Hx Falls: Yes - GASTROINTESTINAL Hx Gastrointestinal Disorders: No - GENITOURINARY/GYNECOLOGICAL Hx Genitourinary Disorders: No - PSYCHIATRIC Hx Psychophysiologic Disorder: No Hx Substance Use: No - SURGICAL HISTORY Hx Cholecystectomy: Yes Hx Hysterectomy: Yes - ANESTHESIA Hx Anesthesia: Yes Hx Anesthesia Reactions: No Hx Malignant Hyperthermia: No Meds Allergies/Adverse Reactions: Allergies Allergy/AdvReac Type Severity Reaction Status Date / Time Penicillins Allergy ANGIOEDEMA Verified 07/19/17 18:41 - Medications Medications: Current Medications Artificial Tears (Artificial Tears Opht Oint) 0 gm OU BID [facility] Levetiracetam (Keppra 500mg Ivpb) 500 mg in 100 mls @ 460 mls/hr IVPB Q12 [facility] Last Admin: 08/05/17 09:25 Dose: 460 mls/hr Sodium Chloride (Hypertonic Saline 3%) 500 mls @ 50 mls/hr IV .Q10H [facility] Last Admin: 08/03/17 18:38 Dose: Not Given Vancomycin HCl (Vancomycin 1gm) 1 gm in 250 mls @ 167 mls/hr IVPB Q12H [facility] PRN Reason: Protocol Last Admin: 08/05/17 11:52 Dose: 167 mls/hr Aztreonam (Azactam 1 Gm) 100 mls @ 100 mls/hr IVPB Q8 [facility] PRN Reason: Protocol Last Admin: 08/05/17 14:55 Dose: 100 mls/hr Acetaminophen (Ofirmev) 1,000 mg in 100 mls @ 400 mls/hr IVPB Q6H PRN PRN Reason: Pain, moderate (4-7) Stop: 08/05/17 17:42 Last Admin: 08/05/17 15:20 Dose: 400 mls/hr Dextrose (Dextrose 5% In Water 1000 Ml) 1,000 mls @ 60 mls/hr IV .[id number] [facility] Last Admin: 08/05/17 09:03 Dose: 60 mls/hr Insulin Human Lispro (Humalog High) 0 units SC Q4H [facility] PRN Reason: Protocol Last Admin: 08/05/17 12:09 Dose: 10 units Nifedipine (Procardia) 10 mg PO Q8 [facility] Nystatin/Triamcinolone Acetonide (Nystatin/Triamcinolone Cream) 1 ea TOP BID PRN PRN Reason: Excoriation Pantoprazole Sodium (Protonix Inj) 40 mg IVP DAILY [facility] Last Admin: 08/05/17 09:25 Dose: 40 mg Physical Exam - Constitutional Appears: Non-toxic, No Acute Distress - Eye Exam Eye Exam: Normal appearance. absent: Scleral icterus - ENT Exam ENT Exam: Mucous Membranes Moist - Neck Exam Neck exam: Positive for: Normal Inspection - Respiratory Exam Respiratory Exam: Clear to Auscultation Bilateral. absent: Rales, Rhonchi - Cardiovascular Exam Cardiovascular Exam: RRR, +S1, +S2 - GI/Abdominal Exam GI & Abdominal Exam: Soft. absent: Distended, Tenderness - Exam Additional comments: anaya in place - Extremities Exam Additional comments: minimal/no leg edema; - Neurological Exam Neurological exam: Altered - Skin Skin Exam: Normal Color, Warm Results - Vital Signs Recent Vital Signs: Last Vital Signs Temp 99.3 F 08/05/17 11:01 Pulse 84 08/05/17 11:01 Resp 17 08/05/17 11:01 BP 157/72 H 08/05/17 11:01 Pulse Ox 98 08/05/17 11:01 - Labs Result Diagrams: 08/06/17 05:00 08/06/17 05:00 Labs: Laboratory Results - last 24 hr 08/04/17 08/04/17 08/04/17 14:12 15:19 15:46 WBC RBC Hgb Hct MCV MCH MCHC RDW Plt Count MPV Gran % Lymph % (Auto) [place] % (Auto) Eos % (Auto) Baso % (Auto) Gran # Lymph # [place] # Eos # Baso # Neutrophils % (Manual) Band Neutrophils % Lymphocytes % (Manual) Monocytes % (Manual) Platelet Evaluation Polychromasia Hypochromasia Anisocytosis (manual) Sodium Potassium Chloride Carbon Dioxide Anion Gap BUN Creatinine Est GFR ( Amer) Est GFR (Non-Af Amer) POC Glucose (mg/dL) 138 H 36 L* 152 H Random Glucose Calcium Phosphorus Magnesium Total Bilirubin AST ALT Alkaline Phosphatase Total Protein Albumin Globulin Albumin/Globulin Ratio 08/04/17 08/04/17 08/04/17 16:50 18:01 19:09 WBC RBC Hgb Hct MCV MCH MCHC RDW Plt Count MPV Gran % Lymph % (Auto) [place] % (Auto) Eos % (Auto) Baso % (Auto) Gran # Lymph # [place] # Eos # Baso # Neutrophils % (Manual) Band Neutrophils % Lymphocytes % (Manual) Monocytes % (Manual) Platelet Evaluation Polychromasia Hypochromasia Anisocytosis (manual) Sodium Potassium Chloride Carbon Dioxide Anion Gap BUN Creatinine Est GFR ( Amer) Est GFR (Non-Af Amer) POC Glucose (mg/dL) 140 H 179 H 220 H Random Glucose Calcium Phosphorus Magnesium Total Bilirubin AST ALT Alkaline Phosphatase Total Protein Albumin Globulin Albumin/Globulin Ratio 08/04/17 08/05/17 08/05/17 23:01 03:35 05:00 WBC 10.2 RBC 2.93 L Hgb 8.5 L Hct 27.1 L MCV 92.5 MCH 29.0 MCHC 31.4 RDW 13.6 Plt Count 184 MPV 9.2 Gran % 90.3 H Lymph % (Auto) 6.1 L [place] % (Auto) 3.6 Eos % (Auto) 0.0 L Baso % (Auto) 0.0 Gran # 9.24 H Lymph # 0.6 L [place] # 0.4 Eos # 0.0 Baso # 0.00 Neutrophils % (Manual) 89 H Band Neutrophils % 1 Lymphocytes % (Manual) 6 L Monocytes % (Manual) 4 Platelet Evaluation Normal Polychromasia Slight Hypochromasia 1+ Anisocytosis (manual) 1+ Sodium Potassium Chloride Carbon Dioxide Anion Gap BUN Creatinine Est GFR ( Amer) Est GFR (Non-Af Amer) POC Glucose (mg/dL) 200 H 267 H Random Glucose Calcium Phosphorus Magnesium Total Bilirubin AST ALT Alkaline Phosphatase Total Protein Albumin Globulin Albumin/Globulin Ratio 08/05/17 08/05/17 08/05/17 05:00 06:53 08:03 WBC RBC Hgb Hct MCV MCH MCHC RDW Plt Count MPV Gran % Lymph % (Auto) [place] % (Auto) Eos % (Auto) Baso % (Auto) Gran # Lymph # [place] # Eos # Baso # Neutrophils % (Manual) Band Neutrophils % Lymphocytes % (Manual) Monocytes % (Manual) Platelet Evaluation Polychromasia Hypochromasia Anisocytosis (manual) Sodium 155 H Potassium 3.3 L Chloride 118 H Carbon Dioxide 26 Anion Gap 14 BUN 45 H Creatinine 0.9 Est GFR ( Amer) > 60 Est GFR (Non-Af Amer) > 60 POC Glucose (mg/dL) 219 H 236 H Random Glucose 230 H Calcium 9.2 Phosphorus 3.3 Magnesium 2.1 Total Bilirubin 0.4 AST 36 ALT 40 Alkaline Phosphatase 92 Total Protein 6.3 Albumin 3.4 Globulin 2.9 Albumin/Globulin Ratio 1.2 08/05/17 08/05/17 08/05/17 11:59 12:45 12:45 WBC 7.6 D RBC 2.70 L Hgb 7.9 L Hct 24.9 L MCV 92.2 MCH 29.3 MCHC 31.7 RDW 13.5 Plt Count 167 MPV 9.7 Gran % 90.5 H Lymph % (Auto) 6.5 L [place] % (Auto) 3.0 Eos % (Auto) 0.0 L Baso % (Auto) 0.0 Gran # 6.83 H Lymph # 0.5 L [place] # 0.2 Eos # 0.0 Baso # 0.00 Neutrophils % (Manual) Band Neutrophils % Lymphocytes % (Manual) Monocytes % (Manual) Platelet Evaluation Polychromasia Hypochromasia Anisocytosis (manual) Sodium 151 H Potassium 3.6 Chloride 116 H Carbon Dioxide 27 Anion Gap 12 BUN 43 H Creatinine 0.8 Est GFR ( Amer) > 60 Est GFR (Non-Af Amer) > 60 POC Glucose (mg/dL) 301 H Random Glucose 240 H Calcium 8.8 Phosphorus Magnesium Total Bilirubin 0.5 AST 34 ALT 41 Alkaline Phosphatase 84 Total Protein 6.0 Albumin 3.2 Globulin 2.8 Albumin/Globulin Ratio 1.1 08/05/17 15:45 WBC RBC Hgb Hct MCV MCH MCHC RDW Plt Count MPV Gran % Lymph % (Auto) [place] % (Auto) Eos % (Auto) Baso % (Auto) Gran # Lymph # [place] # Eos # Baso # Neutrophils % (Manual) Band Neutrophils % Lymphocytes % (Manual) Monocytes % (Manual) Platelet Evaluation Polychromasia Hypochromasia Anisocytosis (manual) Sodium Potassium Chloride Carbon Dioxide Anion Gap BUN Creatinine Est GFR ( Amer) Est GFR (Non-Af Amer) POC Glucose (mg/dL) 186 H Random Glucose Calcium Phosphorus Magnesium Total Bilirubin AST ALT Alkaline Phosphatase Total Protein Albumin Globulin Albumin/Globulin Ratio Assessment & Plan (1) Hypernatremia Assessment and Plan: Secondary to being administered hypertonic saline in the setting of intracranial hemorrhage; having been intubated with inability to ask for water also contributing to problem; however, hypernatremia is already improving; currently on D5W at 60 cc/hr, and getting tube feeds; continue the same; Status: Acute (2) HTN (hypertension) Assessment and Plan: BP elevated; in setting of recent intracranial hemorrhage, should try to bring SBP < 140; will start nifedipine 10 mg PO tid; Status: Acute (3) Azotemia Assessment and Plan: Likely secondary to steroids, currently discontinued; continue to monitor; if no improvement, may need further assessment (volume depletion v GI bleed v high protein feeds); Status: Acute - Assessment and Plan (Free Text) Assessment: Thank you for this interesting consult; will sign off; please feel free to call us back.
[2017-08-05] MEDS: Mineral Oil/Petrolatum Opht Oint(3.5 gm) OU SCH (17:15)
--- NOTE | 2017-08-05 18:40 | CP.PCM.PN ---
Subjective - Date & Time of Evaluation Date of Evaluation: 08/05/17 Time of Evaluation: 17:30 - Subjective Subjective: Infectious Disease Follow Up August 05, 2017 73 yo female presented with fall and altered mental status. She was found at home on floor by family who heard her fall. The patient was brought into the ER and found to be in uncontrolled hypertension and requiring intubation on arrival in the ER. The patient was found to hae a 4.4 cm left occipital intracranial hemorrhage with intraventricular extension. Patient is recovering but still having episodes of low grade fevers. Patient herself is not making any new complaints. She still has residual right sided weakness. Afebrile in the past 48 hours. Repeat cultures sent. Cannot rule out central fever. Cultures negative to date from sets taken on 07/28/2017 and 07/29/2017. She was extubated 08/04/2017. Patient opens her eyes and can follow an occasional command such as squeezing hand. Noted family has rescinded DNR/DNI. Noted Radiation Oncology considering palliative radiation if the patient shows some reasonable improvement during this hospitalization. Blood cultures with coagulase negative staph which is most likely contamination. Objective - Vital Signs/Intake and Output Vital Signs (last 24 hours): Temp Pulse Resp BP Pulse Ox 99.1 F 72 17 143/62 97 08/05/17 17:01 08/05/17 17:01 08/05/17 17:01 08/05/17 17:01 08/05/17 17:01 Intake and Output: 08/05/17 08/05/17 06:59 18:59 Intake Total 530 Output Total 1500 Balance -970 - Medications Medications: Current Medications Artificial Tears (Artificial Tears Opht Oint) 0 gm OU BID [facility] Last Admin: 08/05/17 17:15 Dose: 1 applic Levetiracetam (Keppra 500mg Ivpb) 500 mg in 100 mls @ 460 mls/hr IVPB Q12 [facility] Last Admin: 08/05/17 09:25 Dose: 460 mls/hr Sodium Chloride (Hypertonic Saline 3%) 500 mls @ 50 mls/hr IV .Q10H [facility] Last Admin: 08/03/17 18:38 Dose: Not Given Vancomycin HCl (Vancomycin 1gm) 1 gm in 250 mls @ 167 mls/hr IVPB Q12H [facility] PRN Reason: Protocol Last Admin: 08/05/17 11:52 Dose: 167 mls/hr Aztreonam (Azactam 1 Gm) 100 mls @ 100 mls/hr IVPB Q8 [facility] PRN Reason: Protocol Last Admin: 08/05/17 14:55 Dose: 100 mls/hr Dextrose (Dextrose 5% In Water 1000 Ml) 1,000 mls @ 60 mls/hr IV .[id number] [facility] Last Admin: 08/05/17 09:03 Dose: 60 mls/hr Insulin Human Lispro (Humalog High) 0 units SC Q4H [facility] PRN Reason: Protocol Last Admin: 08/05/17 17:58 Dose: 4 units Nifedipine (Procardia) 10 mg PO Q8 [facility] Nystatin/Triamcinolone Acetonide (Nystatin/Triamcinolone Cream) 1 ea TOP BID PRN PRN Reason: Excoriation Pantoprazole Sodium (Protonix Inj) 40 mg IVP DAILY [facility] Last Admin: 08/05/17 09:25 Dose: 40 mg - Labs Labs: 08/05/17 12:45 08/05/17 12:45 PT 10.5 Seconds (9.9-11.8) 08/01/17 08:20 INR 0.97 (0.93-1.08) 08/01/17 08:20 APTT 27.3 Seconds (23.7-30.8) 08/01/17 08:20 - Constitutional Appears: Confused, Chronically Ill - Head Exam Head Exam: ATRAUMATIC, NORMOCEPHALIC - Eye Exam Eye Exam: EOMI, PERRL Pupil Exam: NORMAL ACCOMODATION, PERRL - ENT Exam ENT Exam: Mucous Membranes Moist, Normal External Ear Exam, TM's Normal Bilaterally - Neck Exam Neck Exam: Full ROM, Normal Inspection - Respiratory Exam Respiratory Exam: Decreased Breath Sounds, NORMAL BREATHING PATTERN. absent: Rales, Rhonchi, Wheezes - Cardiovascular Exam Cardiovascular Exam: REGULAR RHYTHM, RRR, +S1, +S2 - GI/Abdominal Exam GI & Abdominal Exam: Soft, Normal Bowel Sounds. absent: Tenderness - Extremities Exam Extremities Exam: Full ROM, Normal Inspection - Neurological Exam Neurological Exam: Alert, Awake Additional comments: Limited understanding. Aphasic. - Psychiatric Exam Additional comments: aphasic, lethargic - Skin Skin Exam: Intact, Normal Color Assessment and Plan - Assessment and Plan (Free Text) Assessment: 73 yo female with low grade fevers of up to 100.4 F after suffering from a 4.4cm left occipital intracranial hemorrhage with intraventricular extension. The patient initially had fevers up to 101.7 F. Clinically, the patient has been improving. Supportive care. She was intubated on admission. She was extubated on 07/25/2017. She speaks serbian mostly. The family states that the patient is acting and speaking appropriately other than the slurring of speech due to her right sided residual weakness. Alfredo cultures sent. There was a mild initial leukocytosis on admission but this has slowly improved. Fever trend has shown improvement. The cultures done to date have been negative so far. No consolidation seen on Chest X-ray. Patient answering question during interview and examination. Supportive care. Currently on Unasyn for antibiotic coverage. Noted C. Diff and repeat urine culture sent. No adequate sample for C. diff testing. Would obtain urinalysis. Would continue Unasyn for now. The current temperature is more likely secondary to the recent intracranial hemorrhage. Leukocytosis of 10.2 today but with a normal differential. Multiple culture sets performed to date are negative. Afebrile for the past 48 hours now. Cultures negative to date at greater than 48 hours. Cannot rule out central fever which is the most likely scenario. It appears as the hemorrhage improves the fevers are improving. The patient still with residual right sided weakness. Last CT done on 07/30/2017 showing interval evolution of known subacute hematoma in left occipital lobe without midline shift or herniation. Resolving intraventricular hemorrhage with residual mild intraventricular hemorrhage. If fevers spike again to over 102, repeat blood and urine cultures. She remains on Cefepime for antibiotic coverage. She has been afebrile for the past 48 hours. Extubated 08/04/2017. Able to follow occasional simple command. Supportive care. Poor termite exterminator helper prognosis given Uterine cancer with brain metastasis and the recent hemorrhagic CVA. Thank you for allowing me to participate in the care of the patient, we will follow with you.
--- NOTE | 2017-08-05 19:53 | CP.PCM.PN ---
Subjective - Date & Time of Evaluation Date of Evaluation: 08/05/17 Time of Evaluation: 18:15 - Subjective Subjective: Opens eyes Objective - Vital Signs/Intake and Output Vital Signs (last 24 hours): Temp Pulse Resp BP Pulse Ox 99.1 F 72 17 143/62 97 08/05/17 17:01 08/05/17 17:01 08/05/17 17:01 08/05/17 17:01 08/05/17 17:01 Intake and Output: 08/05/17 08/06/17 18:59 06:59 Intake Total 1970 Output Total 1400 Balance 570 - Medications Medications: Current Medications Artificial Tears (Artificial Tears Opht Oint) 0 gm OU BID [facility] Last Admin: 08/05/17 17:15 Dose: 1 applic Levetiracetam (Keppra 500mg Ivpb) 500 mg in 100 mls @ 460 mls/hr IVPB Q12 [facility] Last Admin: 08/05/17 09:25 Dose: 460 mls/hr Sodium Chloride (Hypertonic Saline 3%) 500 mls @ 50 mls/hr IV .Q10H [facility] Last Admin: 08/03/17 18:38 Dose: Not Given Vancomycin HCl (Vancomycin 1gm) 1 gm in 250 mls @ 167 mls/hr IVPB Q12H [facility] PRN Reason: Protocol Last Admin: 08/05/17 11:52 Dose: 167 mls/hr Aztreonam (Azactam 1 Gm) 100 mls @ 100 mls/hr IVPB Q8 [facility] PRN Reason: Protocol Last Admin: 08/05/17 14:55 Dose: 100 mls/hr Dextrose (Dextrose 5% In Water 1000 Ml) 1,000 mls @ 60 mls/hr IV .[id number] [facility] Last Admin: 08/05/17 09:03 Dose: 60 mls/hr Insulin Human Lispro (Humalog High) 0 units SC Q4H [facility] PRN Reason: Protocol Last Admin: 08/05/17 17:58 Dose: 4 units Nifedipine (Procardia) 10 mg PO Q8 [facility] Nystatin/Triamcinolone Acetonide (Nystatin/Triamcinolone Cream) 1 ea TOP BID PRN PRN Reason: Excoriation Pantoprazole Sodium (Protonix Inj) 40 mg IVP DAILY [facility] Last Admin: 08/05/17 09:25 Dose: 40 mg - Labs Labs: 08/05/17 12:45 08/05/17 12:45 PT 10.5 Seconds (9.9-11.8) 08/01/17 08:20 INR 0.97 (0.93-1.08) 08/01/17 08:20 APTT 27.3 Seconds (23.7-30.8) 08/01/17 08:20 - Eye Exam Eye Exam: Normal appearance - ENT Exam ENT Exam: Mucous Membranes Dry - Respiratory Exam Respiratory Exam: NORMAL BREATHING PATTERN - Cardiovascular Exam Cardiovascular Exam: +S1, +S2 - GI/Abdominal Exam GI & Abdominal Exam: Normal Bowel Sounds - Extremities Exam Extremities Exam: Pedal Edema Assessment and Plan (1) Uterine cancer Assessment & Plan: brain metastasis s/p neurosurgical biopsy brain bleed radiotherapy when more clinically stable Status: Acute (2) Anemia Assessment & Plan: chronic disease Status: Acute
--- NOTE | 2017-08-05 22:04 | CP.PCM.PN ---
<Mode Loera - Last Filed: 08/05/17 22:12> Subjective - Date & Time of Evaluation Date of Evaluation: 08/05/17 Time of Evaluation: 10:02 - Subjective Subjective: Patient was seen and examined at bedside. The patient responds t commands. The patient is able to move the right leg minimally but unable to keep it flexed at the bedside. Objective - Vital Signs/Intake and Output Vital Signs (last 24 hours): Temp Pulse Resp BP Pulse Ox 99.1 F 72 17 143/62 97 08/05/17 17:01 08/05/17 17:01 08/05/17 17:01 08/05/17 17:01 08/05/17 17:01 Intake and Output: 08/05/17 08/06/17 18:59 06:59 Intake Total 1970 Output Total 1400 Balance 570 - Medications Medications: Current Medications Artificial Tears (Artificial Tears Opht Oint) 0 gm OU BID [facility] Last Admin: 08/05/17 17:15 Dose: 1 applic Levetiracetam (Keppra 500mg Ivpb) 500 mg in 100 mls @ 460 mls/hr IVPB Q12 [facility] Last Admin: 08/05/17 21:57 Dose: 460 mls/hr Sodium Chloride (Hypertonic Saline 3%) 500 mls @ 50 mls/hr IV .Q10H [facility] Last Admin: 08/03/17 18:38 Dose: Not Given Vancomycin HCl (Vancomycin 1gm) 1 gm in 250 mls @ 167 mls/hr IVPB Q12H [facility] PRN Reason: Protocol Last Admin: 08/05/17 11:52 Dose: 167 mls/hr Aztreonam (Azactam 1 Gm) 100 mls @ 100 mls/hr IVPB Q8 [facility] PRN Reason: Protocol Last Admin: 08/05/17 21:56 Dose: 100 mls/hr Dextrose (Dextrose 5% In Water 1000 Ml) 1,000 mls @ 60 mls/hr IV .[id number] [facility] Last Admin: 08/05/17 09:03 Dose: 60 mls/hr Insulin Human Lispro (Humalog High) 0 units SC Q4H [facility] PRN Reason: Protocol Last Admin: 08/05/17 20:00 Dose: Not Given Nifedipine (Procardia) 10 mg PO Q8 [facility] Nystatin/Triamcinolone Acetonide (Nystatin/Triamcinolone Cream) 1 ea TOP BID PRN PRN Reason: Excoriation Pantoprazole Sodium (Protonix Inj) 40 mg IVP DAILY [facility] Last Admin: 08/05/17 09:25 Dose: 40 mg - Labs Labs: 08/05/17 12:45 08/05/17 12:45 PT 10.5 Seconds (9.9-11.8) 08/01/17 08:20 INR 0.97 (0.93-1.08) 08/01/17 08:20 APTT 27.3 Seconds (23.7-30.8) 08/01/17 08:20 - Head Exam Head Exam: ATRAUMATIC, NORMAL INSPECTION, NORMOCEPHALIC - Eye Exam Eye Exam: absent: EOMI Pupil Exam: PERRL. absent: Miosis - Neck Exam Neck Exam: Normal Inspection - Respiratory Exam Respiratory Exam: NORMAL BREATHING PATTERN. absent: Accessory Muscle Use, Decreased Breath Sounds - Cardiovascular Exam Cardiovascular Exam: REGULAR RHYTHM, +S1, +S2. absent: Rubs - GI/Abdominal Exam GI & Abdominal Exam: Soft, Normal Bowel Sounds - Extremities Exam Additional comments: BILATERAL le WEAKNESS - Neurological Exam Neurological Exam: Altered, Motor Sensory Deficit - Psychiatric Exam Psychiatric exam: Normal Affect, Normal Mood - Skin Skin Exam: Dry Assessment and Plan - Assessment and Plan (Free Text) Assessment: This is a 67 yo F with PMH of Uterine Ca (s/p chemo/rads, total hysterectomy, and b/l salpingo-oophrectomy), DM2, HTN, HLD, and disc disease who represents [place] [facility] [place] with nausea, emesis, headache, and increasingly obtunded state. 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 She was intubated for airway protection. Plan: Hemorrhagic CVA with midline Shift - CT head notable for new onset large elliptical-shaped hemorrhage in right frontoparietal lobe with surrounding edema and mass effect. Brain MRI notable for interval appearance of foci of acute hemorrhage at the right posterior frontal/parietal lobe (consistent with hemorrhage seen on CT), and moderate to large edema surrounding the foci of hemorrhage resulting in mass effect on the lateral ventricle and approximately 14 millimeter [id number] midline shift. -Admission CXR shows ETT and NGT placement. Reads Mild bibasilar atelectasis with what appears to represent small left and possibly tiny right effusion. -Consulted Neurology and Neurosurgery recs appreciated -Neurosurgery says no acute indication for surgery at this time. Cont. with supportive care. -intubated today and responding to verbal and tactile stimulation. -PT/OT -Cont. Decadron per neuro Hypernatremia - D5W given . NA now 151 with the goal of 150 today. -Will continue to monitor with serial cmp's. SIRS (resolved) Patient met SIRS criteria with Tachycardia, leukocytosis, and fever Fluids and Insulin per ICU Patient is now Afebrile with a normal HR and no leukocytosis Blood cultures on (08/01) show Staphylococcus Sp Coag Neg. MRSA of nares negative. Blood cultures on 08/03 show no growth. Urine cultures are pending. Cartoid US showed B/L 20-39% proximal ICA stenosis and anterograde flow in both cerebral arteries. Continue Vanc and Azactam <Davon DIETRICH,Roly - Last Filed: 08/06/17 11:25> Objective - Vital Signs/Intake and Output Vital Signs (last 24 hours): Temp Pulse Resp BP Pulse Ox 99.7 F H 73 19 143/55 L 100 08/06/17 09:01 08/06/17 09:01 08/06/17 09:01 08/06/17 09:01 08/06/17 09:01 Intake and Output: 08/06/17 08/06/17 06:59 18:59 Intake Total 1270 Output Total 1700 Balance -430 - Medications Medications: Current Medications Acetaminophen (Tylenol 650mg/20.3ml Solution Ud) 650 mg PO Q6H PRN PRN Reason: Headache Artificial Tears (Artificial Tears Opht Oint) 0 gm OU BID [facility] Last Admin: 08/06/17 09:23 Dose: 1 applic Levetiracetam (Keppra 500mg Ivpb) 500 mg in 100 mls @ 460 mls/hr IVPB Q12 [facility] Last Admin: 08/06/17 09:24 Dose: 460 mls/hr Sodium Chloride (Hypertonic Saline 3%) 500 mls @ 50 mls/hr IV .Q10H [facility] Last Admin: 08/03/17 18:38 Dose: Not Given Vancomycin HCl (Vancomycin 1gm) 1 gm in 250 mls @ 167 mls/hr IVPB Q12H [facility] PRN Reason: Protocol Last Admin: 08/05/17 23:57 Dose: 167 mls/hr Aztreonam (Azactam 1 Gm) 100 mls @ 100 mls/hr IVPB Q8 [facility] PRN Reason: Protocol Last Admin: 08/06/17 05:02 Dose: 100 mls/hr Insulin Human Lispro (Humalog High) 0 units SC Q4H [facility] PRN Reason: Protocol Last Admin: 08/06/17 08:00 Dose: 7 units Nifedipine (Procardia) 10 mg PO Q8 [facility] Last Admin: 08/06/17 05:00 Dose: 10 mg Nystatin/Triamcinolone Acetonide (Nystatin/Triamcinolone Cream) 1 ea TOP BID PRN PRN Reason: Excoriation Last Admin: 08/06/17 09:29 Dose: 1 applic Pantoprazole Sodium (Protonix Inj) 40 mg IVP DAILY [facility] Last Admin: 08/06/17 09:23 Dose: 40 mg - Labs Labs: 08/06/17 05:00 08/06/17 05:00 PT 10.5 Seconds (9.9-11.8) 08/01/17 08:20 INR 0.97 (0.93-1.08) 08/01/17 08:20 APTT 27.3 Seconds (23.7-30.8) 08/01/17 08:20 Attending/Attestation - Attestation I have personally seen and examined this patient.: Yes I have fully participated in the care of the patient.: Yes I have reviewed all pertinent clinical information, including history, physical exam and plan: Yes Notes (Text): 08/06/17 11:22 Patient was seen and examined with medical records assistant. 67 yo F with PMH of Uterine Ca , DM2, HTN, HLD, , underwent surgery for right Parietal mass which was causing left hemiplegia and was discharged to rehab for rehabilitation, her power was improving at the time of discharge was readmitted with change of mental status , was intubated, found to have hemorrhagic CVA at the site of surgery with significant midline shift, patient was evaluated by Neuro surgery, no plan for intervention. Patient pathology report showed metastatic uterine cancer. Patient was extubated, mental status is poor, reveals left sided hemiplegia as well as new right sided weakness. Patient was evaluated by oncology and radiation oncology , there is plan for radiation at this time as patient is critically sick. Failed swallow evaluation. Hypernatremia is worsened, will start on d 5W,We will monitor closely, Nephrology is consulted. Patient is full code at this time. Prognosis is guarded.
[2017-08-06] MEDS: Insulin Lispro (HUMAlog) HIGH Coverage SC SCH ×6 (03:48→23:20)
[2017-08-06] MEDS: Aztreonam 1 Gm in NS 100mL 100 ML IVPB SCH ×3 (05:02→21:34)
[2017-08-06 05:58] LABS: EOS % 0.6 % (1.5-5.0); GRAN # 6.19 (1.4-6.5); GRAN % 88.8 % (50.0-68.0); HEMATOCRIT 25.3 % (36.0-48.0); LYMPH # 0.5 (1.2-3.4); LYMPH % 7.6 % (22.0-35.0); MEAN CELL VOLUME 91.3 fl (80.0-105.0); MEAN CORPUSCULAR HEMOGLOBIN 28.5 pg (25.0-35.0); MEAN CORPUSCULAR HGB CONC 31.2 g/dl (31.0-37.0); MONO # 0.2 (0.1-0.6); RED CELL DISTRIBUTION WIDTH 12.9 % (11.5-14.5)
[2017-08-06 05:59] LABS: ALB/GLOB RATIO 1.2 (1.1-1.8); ALKALINE PHOSPHATASE 85 U/L (38-126); ALT/SGPT 40 U/L (7-56); AST/SGOT 26 U/L (14-36); BILIRUBIN,TOTAL 0.4 mg/dL (0.2-1.3); BLOOD UREA NITROGEN 28 mg/dL (7-21); CALCIUM 8.9 mg/dL (8.4-10.5); CARBON DIOXIDE 32 mmol/L (21-33); CHLORIDE 107 mmol/L (98-107); GFR AFRICAN-AMERICAN > 60; GLUCOSE,RANDOM 219 mg/dL (70-110); MAGNESIUM 1.9 mg/dL (1.7-2.2); PHOSPHOROUS 3.1 mg/dL (2.5-4.5); POTASSIUM 3.3 mmol/L (3.6-5.0); SODIUM 146 mmol/L (132-148); TOTAL PROTEIN 5.5 g/dL (5.8-8.3)
[2017-08-06] MEDS ORDERED: Potassium Chloride 20 mEq ER Tab PO STA (08:09)
[2017-08-06] MEDS: Mineral Oil/Petrolatum Opht Oint(3.5 gm) OU SCH ×2 (09:23→17:08)
[2017-08-06] MEDS: levETIRAcetam 500mg IVPB 500 MG/100 ML BAG IVPB SCH ×2 (09:24→21:37)
[2017-08-06] MEDS: Nystatin-Triamcinolone Cream(30 gm) TOP PRN ×2 (09:29→17:07)
--- NOTE | 2017-08-06 10:22 | PN ---
DATE: 08/06/2017 FINGERPRINT TECHNICIAN NOTE SUBJECTIVE: The patient is resting in bed with NG tube in place, tolerating NG tube feedings. She is awake and responds appropriately. She is on O2 via nasal cannula and tolerating well. The patient has no vomiting and does not complaining of being nauseous. No chest pain. No significant cough or wheezing. PHYSICAL EXAMINATION: VITAL SIGNS: Her temperature is 99.1, her pulse is 76, respirations are 30, and BP is 149/62. SKIN: Warm and dry. HEENT: Head is atraumatic and normocephalic. Eyes are reactive to light. Ears, nose and throat seemed to be within normal limits. NECK: Supple. No JVD. No thyroid enlargement. No lymph nodes. HEART: Regular rate and rhythm. Normal S1, S2. LUNGS: Reveal rare rhonchi at the bases. ABDOMEN: Soft. Decreased bowel sounds, but obese. GENITALIA: Deferred. RECTAL: Deferred. MUSCULOSKELETAL: No joint deformities. EXTREMITIES: Reveal positive lower extremity edema. NEUROLOGICAL: The patient is awake and moving all extremities. LABORATORY DATA: Reveal a white count of 7.0, hemoglobin of 7.9, hematocrit of 25.3, and platelets of 140,000. The patient's sodium is 146, potassium 3.3, chloride 107, CO2 of 32 with a BUN of 28, creatinine of 0.8, and glucose of 259. 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 She has respiratory insufficiency, anemia, diabetes, hypertension, as well as obesity. PLAN: We will continue with NG tube feeding as well as O2 via nasal cannula and aggressive pulmonary toilet. The patient is on aztreonam as well as vancomycin and Protonix with O2 via nasal cannula. She is getting IV fluids as well as Keppra and we will continue to monitor closely and treat aggressively along with the other consultants and the primary care doctor. Note, that the patient will be transfer to the family as per PMD. Jovanny Harrington MD
--- NOTE | 2017-08-06 10:36 | CP.PCM.PN ---
<Mode Loera - Last Filed: 08/06/17 10:38> Subjective - Date & Time of Evaluation Date of Evaluation: 08/06/17 Time of Evaluation: 10:34 - Subjective Subjective: Patient was seen and examined at bedside. The patient is able to follow command and attempts to respond when asked a question. Per nursing there were no acute events overnight. The remainder of ROS unobtainable due to current clinical condition. Objective - Vital Signs/Intake and Output Vital Signs (last 24 hours): Temp Pulse Resp BP Pulse Ox 99.7 F H 73 19 143/55 L 100 08/06/17 09:01 08/06/17 09:01 08/06/17 09:01 08/06/17 09:01 08/06/17 09:01 Intake and Output: 08/06/17 08/06/17 06:59 18:59 Intake Total 1270 Output Total 1700 Balance -430 - Medications Medications: Current Medications Artificial Tears (Artificial Tears Opht Oint) 0 gm OU BID [facility] Last Admin: 08/06/17 09:23 Dose: 1 applic Levetiracetam (Keppra 500mg Ivpb) 500 mg in 100 mls @ 460 mls/hr IVPB Q12 [facility] Last Admin: 08/06/17 09:24 Dose: 460 mls/hr Sodium Chloride (Hypertonic Saline 3%) 500 mls @ 50 mls/hr IV .Q10H [facility] Last Admin: 08/03/17 18:38 Dose: Not Given Vancomycin HCl (Vancomycin 1gm) 1 gm in 250 mls @ 167 mls/hr IVPB Q12H [facility] PRN Reason: Protocol Last Admin: 08/05/17 23:57 Dose: 167 mls/hr Aztreonam (Azactam 1 Gm) 100 mls @ 100 mls/hr IVPB Q8 [facility] PRN Reason: Protocol Last Admin: 08/06/17 05:02 Dose: 100 mls/hr Insulin Human Lispro (Humalog High) 0 units SC Q4H [facility] PRN Reason: Protocol Last Admin: 08/06/17 08:00 Dose: 7 units Nifedipine (Procardia) 10 mg PO Q8 [facility] Last Admin: 08/06/17 05:00 Dose: 10 mg Nystatin/Triamcinolone Acetonide (Nystatin/Triamcinolone Cream) 1 ea TOP BID PRN PRN Reason: Excoriation Last Admin: 08/06/17 09:29 Dose: 1 applic Pantoprazole Sodium (Protonix Inj) 40 mg IVP DAILY [facility] Last Admin: 08/06/17 09:23 Dose: 40 mg - Labs Labs: 08/06/17 05:00 08/06/17 05:00 PT 10.5 Seconds (9.9-11.8) 08/01/17 08:20 INR 0.97 (0.93-1.08) 08/01/17 08:20 APTT 27.3 Seconds (23.7-30.8) 08/01/17 08:20 - Head Exam Head Exam: ATRAUMATIC - Eye Exam Eye Exam: Normal appearance, PERRL Pupil Exam: PERRL - ENT Exam ENT Exam: Mucous Membranes Moist - Neck Exam Neck Exam: Normal Inspection. absent: Lymphadenopathy, Thyromegaly - Respiratory Exam Respiratory Exam: Clear to Ausculation Bilateral, NORMAL BREATHING PATTERN. absent: Accessory Muscle Use, Respiratory Distress - Cardiovascular Exam Cardiovascular Exam: REGULAR RHYTHM, RRR, +S1, +S2. absent: Gallop, Rubs - GI/Abdominal Exam GI & Abdominal Exam: Soft, Normal Bowel Sounds. absent: Rigid, Tenderness - Extremities Exam Additional comments: decreased range of motion LE bilaterally. Weakness b/l le . - Back Exam Back Exam: NORMAL INSPECTION. absent: paraspinal tenderness - Neurological Exam Neurological Exam: Altered, Awake, Motor Sensory Deficit - Psychiatric Exam Psychiatric exam: Normal Affect, Normal Mood - Skin Skin Exam: Dry Assessment and Plan - Assessment and Plan (Free Text) Assessment: This is a 67 yo F with PMH of Uterine Ca (s/p chemo/rads, total hysterectomy, and b/l salpingo-oophrectomy), DM2, HTN, HLD, and disc disease who [place] [facility] [place], emesis, headache, and increasingly obtunded state. 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 She was intubated for airway protection. Plan: Hemorrhagic CVA with midline Shift - CT head notable for new onset large elliptical-shaped hemorrhage in right frontoparietal lobe with surrounding edema and mass effect. Brain MRI notable for interval appearance of foci of acute hemorrhage at the right posterior frontal/parietal lobe (consistent with hemorrhage seen on CT), and moderate to large edema surrounding the foci of hemorrhage resulting in mass effect on the lateral ventricle and approximately 14 millimeter [id number] midline shift. -Admission CXR shows ETT and NGT placement. Reads Mild bibasilar atelectasis with what appears to represent small left and possibly tiny right effusion. -Consulted Neurology and Neurosurgery recs appreciated -Neurosurgery says no acute indication for surgery at this time. Cont. with supportive care. -intubated today and responding to verbal and tactile stimulation. -continue PT/OT -Cont. Decadron per neuro Hypernatremia - D5W given . NA now 151. 146 today. -Will continue to monitor with serial cmp's. SIRS (resolved) Patient met SIRS criteria with Tachycardia, leukocytosis, and fever Fluids and Insulin per ICU Patient is now Afebrile with a normal HR and no leukocytosis Blood cultures on (08/01) show Staphylococcus Sp Coag Neg. MRSA of nares negative. Blood cultures on 08/03 show no growth. Urine cultures are pending. Cartoid US showed B/L 20-39% proximal ICA stenosis and anterograde flow in both cerebral arteries. Continue Vanc and Azactam <Davon DIETRICH,Roly - Last Filed: 08/14/17 14:03> Objective - Vital Signs/Intake and Output Vital Signs (last 24 hours): Temp Pulse Resp BP Pulse Ox 98.7 F 104 H 20 165/88 H 100 08/14/17 06:00 08/14/17 06:00 08/14/17 06:00 08/14/17 06:00 08/14/17 06:00 Intake and Output: 08/14/17 08/14/17 06:59 18:59 Intake Total 1000 Balance 1000 - Medications Medications: Current Medications Acetaminophen (Tylenol 650mg/20.3ml Solution Ud) 650 mg PO Q6H PRN PRN Reason: Headache Last Admin: 08/14/17 00:32 Dose: 650 mg Artificial Tears (Artificial Tears Opht Oint) 0 gm OU BID [facility] Last Admin: 08/14/17 10:23 Dose: 1 applic Baclofen (Lioresal) 20 mg PO HS [facility] Last Admin: 08/13/17 21:10 Dose: 20 mg Levetiracetam (Keppra 500mg Ivpb) 500 mg in 100 mls @ 460 mls/hr IVPB Q12 [facility] Last Admin: 08/14/17 10:23 Dose: 460 mls/hr Insulin Detemir (Levemir) 8 unit SC HS [facility] Last Admin: 08/13/17 22:00 Dose: 8 unit Insulin Human Lispro (Humalog High) 0 units SC Q4H [facility] PRN Reason: Protocol Last Admin: 08/14/17 12:12 Dose: 4 units Metoprolol Tartrate (Lopressor) 5 mg IVP Q6 PRN PRN Reason: Systolic Blood Pressure Last Admin: 08/10/17 10:23 Dose: 5 mg Nifedipine (Procardia) 10 mg PO Q8 [facility] Last Admin: 08/14/17 05:39 Dose: 10 mg Nystatin/Triamcinolone Acetonide (Nystatin/Triamcinolone Cream) 1 ea TOP BID PRN PRN Reason: Excoriation Last Admin: 08/09/17 09:48 Dose: 1 applic Pantoprazole Sodium (Protonix Inj) 40 mg IVP DAILY [facility] Last Admin: 08/14/17 09:15 Dose: 40 mg - Labs Labs: 08/14/17 08:10 08/14/17 08:10 PT 10.5 Seconds (9.9-11.8) 08/01/17 08:20 INR 0.97 (0.93-1.08) 08/01/17 08:20 APTT 27.3 Seconds (23.7-30.8) 08/01/17 08:20 Attending/Attestation - Attestation I have personally seen and examined this patient.: Yes I have fully participated in the care of the patient.: Yes I have reviewed all pertinent clinical information, including history, physical exam and plan: Yes Notes (Text): 08/14/17 14:01 Patient was seen and examined with medical device sales consultant. 67 yo F with PMH of Uterine Ca , DM2, HTN, HLD, , underwent surgery for right Parietal mass causing left hemiplegia and was discharged to rehab for rehabilitation, her power was improving at the time of discharge was readmitted with change of mental status , was intubated, found to have hemorrhagic CVA at the site of surgery with significant midline shift, patient was evaluated by Neuro surgery, no plan for intervention. Patient pathology report showed metastatic uterine cancer. Patient was extubated, mental status is poor, limited neuro examination reveals left sided hemiplegia as well as new right sided weakness. Patient was evaluated by oncology and radiation oncology , there is no plan for radiation at this time as patient is critically sick.Patient has failed swallow evaluation. Most likely will need PEG tube .Family has revoked DNR/DNI Prognosis is guarded.
[2017-08-06] MEDS ORDERED: Acetaminophen 160 mg/5 ml UD PEG STA (10:54)
[2017-08-06] MEDS: Vancomycin 1gm in NS 250ml 1 GM/250 ML BAG IVPB SCH (11:23)
[2017-08-06] MEDS: Acetaminophen 650mg/20.3ml solution UD PO PRN (11:23)
--- NOTE | 2017-08-06 19:35 | CP.PCM.PN ---
Subjective - Date & Time of Evaluation Date of Evaluation: 08/06/17 Time of Evaluation: 16:30 - Subjective Subjective: Infectious Disease Follow Up August 06, 2017 73 yo female presented with fall and altered mental status. She was found at home on floor by family who heard her fall. The patient was brought into the ER and found to be in uncontrolled hypertension and requiring intubation on arrival in the ER. The patient was found to hae a 4.4 cm left occipital intracranial hemorrhage with intraventricular extension. Patient is recovering but still having episodes of low grade fevers. Patient herself is not making any new complaints. She still has residual right sided weakness. Afebrile in the past 48 hours. Repeat cultures sent. Cannot rule out central fever. Cultures negative to date from sets taken on 07/28/2017 and 07/29/2017. She was extubated 08/04/2017. Patient opens her eyes and can follow an occasional command such as squeezing hand. Noted family has rescinded DNR/DNI. Noted Radiation Oncology considering palliative radiation if the patient shows some reasonable improvement during this hospitalization. Blood cultures with coagulase negative staph which is most likely contamination. Objective - Vital Signs/Intake and Output Vital Signs (last 24 hours): Temp Pulse Resp BP Pulse Ox 99.5 F 75 40 H 147/66 100 08/06/17 18:01 08/06/17 18:01 08/06/17 18:01 08/06/17 18:01 08/06/17 18:01 Intake and Output: 08/06/17 08/07/17 18:59 06:59 Intake Total 1370 Output Total 1250 Balance 120 - Medications Medications: Current Medications Acetaminophen (Tylenol 650mg/20.3ml Solution Ud) 650 mg PO Q6H PRN PRN Reason: Headache Last Admin: 08/06/17 11:23 Dose: 650 mg Artificial Tears (Artificial Tears Opht Oint) 0 gm OU BID [facility] Last Admin: 08/06/17 17:08 Dose: 1 applic Levetiracetam (Keppra 500mg Ivpb) 500 mg in 100 mls @ 460 mls/hr IVPB Q12 [facility] Last Admin: 08/06/17 09:24 Dose: 460 mls/hr Sodium Chloride (Hypertonic Saline 3%) 500 mls @ 50 mls/hr IV .Q10H [facility] Last Admin: 08/03/17 18:38 Dose: Not Given Vancomycin HCl (Vancomycin 1gm) 1 gm in 250 mls @ 167 mls/hr IVPB Q12H [facility] PRN Reason: Protocol Last Admin: 08/06/17 11:23 Dose: 167 mls/hr Aztreonam (Azactam 1 Gm) 100 mls @ 100 mls/hr IVPB Q8 [facility] PRN Reason: Protocol Last Admin: 08/06/17 13:04 Dose: 100 mls/hr Insulin Human Lispro (Humalog High) 0 units SC Q4H [facility] PRN Reason: Protocol Last Admin: 08/06/17 15:53 Dose: 2 units Nifedipine (Procardia) 10 mg PO Q8 [facility] Last Admin: 08/06/17 13:06 Dose: 10 mg Nystatin/Triamcinolone Acetonide (Nystatin/Triamcinolone Cream) 1 ea TOP BID PRN PRN Reason: Excoriation Last Admin: 08/06/17 17:07 Dose: 1 applic Pantoprazole Sodium (Protonix Inj) 40 mg IVP DAILY [facility] Last Admin: 08/06/17 09:23 Dose: 40 mg - Labs Labs: 08/06/17 05:00 08/06/17 05:00 PT 10.5 Seconds (9.9-11.8) 08/01/17 08:20 INR 0.97 (0.93-1.08) 08/01/17 08:20 APTT 27.3 Seconds (23.7-30.8) 08/01/17 08:20 - Constitutional Appears: Confused, Chronically Ill - Head Exam Head Exam: ATRAUMATIC, NORMOCEPHALIC - Eye Exam Eye Exam: EOMI, PERRL Pupil Exam: NORMAL ACCOMODATION, PERRL - ENT Exam ENT Exam: Mucous Membranes Moist, Normal External Ear Exam, TM's Normal Bilaterally - Neck Exam Neck Exam: Full ROM, Normal Inspection - Respiratory Exam Respiratory Exam: Decreased Breath Sounds, NORMAL BREATHING PATTERN. absent: Rales, Rhonchi, Wheezes - Cardiovascular Exam Cardiovascular Exam: REGULAR RHYTHM, RRR, +S1, +S2 - GI/Abdominal Exam GI & Abdominal Exam: Soft, Normal Bowel Sounds. absent: Distended, Tenderness - Extremities Exam Extremities Exam: Full ROM, Normal Inspection - Neurological Exam Neurological Exam: Alert, Awake Additional comments: Limited understanding. Aphasic. - Psychiatric Exam Additional comments: aphasic, lethargic - Skin Skin Exam: Intact, Normal Color Assessment and Plan - Assessment and Plan (Free Text) Assessment: 73 yo female with low grade fevers of up to 100.4 F after suffering from a 4.4cm left occipital intracranial hemorrhage with intraventricular extension. The patient initially had fevers up to 101.7 F. Clinically, the patient has been improving. Supportive care. She was intubated on admission. She was extubated on 07/25/2017. She speaks korean mostly. The family states that the patient is acting and speaking appropriately other than the slurring of speech due to her right sided residual weakness. Alfredo cultures sent. There was a mild initial leukocytosis on admission but this has slowly improved. Fever trend has shown improvement. The cultures done to date have been negative so far. No consolidation seen on Chest X-ray. Patient answering question during interview and examination. Supportive care. Currently on Unasyn for antibiotic coverage. Noted C. Diff and repeat urine culture sent. No adequate sample for C. diff testing. Would obtain urinalysis. Would continue Unasyn for now. The current temperature is more likely secondary to the recent intracranial hemorrhage. Leukocytosis of 10.2 today but with a normal differential. Multiple culture sets performed to date are negative. Afebrile for the past 48 hours now. Cultures negative to date at greater than 48 hours. Cannot rule out central fever which is the most likely scenario. It appears as the hemorrhage improves the fevers are improving. The patient still with residual right sided weakness. Last CT done on 07/30/2017 showing interval evolution of known subacute hematoma in left occipital lobe without midline shift or herniation. Resolving intraventricular hemorrhage with residual mild intraventricular hemorrhage. If fevers spike again to over 102, repeat blood and urine cultures. She remains on IV Vancomycin and Aztreonam for antibiotic coverage. She has been afebrile for the past few days. Consider stopping antibiotics at 10 days of administration. Extubated 08/04/2017. Able to follow occasional simple command. Supportive care. Poor terminal supervisor prognosis given Uterine cancer with brain metastasis and the recent hemorrhagic CVA. Thank you for allowing me to participate in the care of the patient, we will follow with you.
[2017-08-07] MEDS: Vancomycin 1gm in NS 250ml 1 GM/250 ML BAG IVPB SCH ×2 (00:16→12:00)
[2017-08-07] MEDS: Acetaminophen 650mg/20.3ml solution UD PO PRN ×2 (00:32→09:25)
[2017-08-07] MEDS: Insulin Lispro (HUMAlog) HIGH Coverage SC SCH ×5 (03:22→19:45)
[2017-08-07] MEDS: Aztreonam 1 Gm in NS 100mL 100 ML IVPB SCH ×3 (05:01→21:00)
[2017-08-07] MEDS: Mineral Oil/Petrolatum Opht Oint(3.5 gm) OU SCH ×2 (09:18→17:21)
[2017-08-07] MEDS: levETIRAcetam 500mg IVPB 500 MG/100 ML BAG IVPB SCH ×2 (09:19→20:58)
--- NOTE | 2017-08-07 17:18 | CP.PCM.PN ---
<KristiRashaun - Last Filed: 08/07/17 17:14> Subjective - Date & Time of Evaluation Date of Evaluation: 08/07/17 Time of Evaluation: 08:50 - Subjective Subjective: Medicine Progress note. Dr. Nichols Pt seen and examined at bedside. present at bedside. Patient responds with minimal words. Shakes head no when asked if she is experiencing any pain. Able to move her right upper extremity to command. Tracks with eyes to midline. Does not follow commands with left side. states that the patient's status improved mildly since yesterday. Objective - Vital Signs/Intake and Output Vital Signs (last 24 hours): Temp Pulse Resp BP Pulse Ox 99.3 F 82 23 140/64 100 08/07/17 10:01 08/07/17 14:42 08/07/17 10:01 08/07/17 14:42 08/07/17 10:01 Intake and Output: 08/07/17 08/07/17 06:59 18:59 Intake Total 550 Output Total 1600 Balance -1050 - Medications Medications: Current Medications Acetaminophen (Tylenol 650mg/20.3ml Solution Ud) 650 mg PO Q6H PRN PRN Reason: Headache Last Admin: 08/07/17 09:25 Dose: 650 mg Artificial Tears (Artificial Tears Opht Oint) 0 gm OU BID [facility] Last Admin: 08/07/17 09:18 Dose: 2 applic Levetiracetam (Keppra 500mg Ivpb) 500 mg in 100 mls @ 460 mls/hr IVPB Q12 [facility] Last Admin: 08/07/17 09:19 Dose: 460 mls/hr Sodium Chloride (Hypertonic Saline 3%) 500 mls @ 50 mls/hr IV .Q10H [facility] Last Admin: 08/03/17 18:38 Dose: Not Given Vancomycin HCl (Vancomycin 1gm) 1 gm in 250 mls @ 167 mls/hr IVPB Q12H [facility] PRN Reason: Protocol Last Admin: 08/07/17 12:00 Dose: 167 mls/hr Aztreonam (Azactam 1 Gm) 100 mls @ 100 mls/hr IVPB Q8 [facility] PRN Reason: Protocol Last Admin: 08/07/17 14:41 Dose: 100 mls/hr Insulin Human Lispro (Humalog High) 0 units SC Q4H [facility] PRN Reason: Protocol Last Admin: 08/07/17 15:34 Dose: 7 units Nifedipine (Procardia) 10 mg PO Q8 [facility] Last Admin: 08/07/17 14:42 Dose: 10 mg Nystatin/Triamcinolone Acetonide (Nystatin/Triamcinolone Cream) 1 ea TOP BID PRN PRN Reason: Excoriation Last Admin: 08/06/17 17:07 Dose: 1 applic Pantoprazole Sodium (Protonix Inj) 40 mg IVP DAILY [facility] Last Admin: 08/07/17 09:19 Dose: 40 mg - Labs Labs: 08/06/17 05:00 08/06/17 05:00 PT 10.5 Seconds (9.9-11.8) 08/01/17 08:20 INR 0.97 (0.93-1.08) 08/01/17 08:20 APTT 27.3 Seconds (23.7-30.8) 08/01/17 08:20 - Constitutional Appears: No Acute Distress - Head Exam Additional comments: posterior scalp intact with sahara. No active oozing or discharge. - Eye Exam Additional comments: tracks to midline and right side with her eyes. - ENT Exam ENT Exam: Mucous Membranes Moist - Respiratory Exam Respiratory Exam: Clear to Ausculation Bilateral, NORMAL BREATHING PATTERN. absent: Decreased Breath Sounds, Wheezes, Respiratory Distress - Cardiovascular Exam Cardiovascular Exam: RRR, +S1, +S2 - GI/Abdominal Exam GI & Abdominal Exam: Soft. absent: Distended, Firm, Guarding, Rigid, Tenderness - Extremities Exam Extremities Exam: absent: Calf Tenderness, Pedal Edema - Neurological Exam Neurological Exam: Alert Additional comments: responds to questions with minimal words - Skin Skin Exam: Dry, Intact, Normal Color, Warm Assessment and Plan - Assessment and Plan (Free Text) Assessment: 67yo F with PMhx of Uterine CA s/p chemo/radiation, s/p total hysterectomy w/ bilat salpingooopherectomy, DM, HTN, HLD here with nausea, TY, worsening mental status. She was found to have hemorrhagic CVA with midline shift, s/p decompressive craniotomy. 1. Hemorrhagic CVA CT - new onset large hemorrhage in right frontoparietal lobe. Brain MRI - interval appearance of foci of acute hemorrhage at right posterior frontopariatal lobe Possible Uterine CA met to brain Neurology following Neurosurgery following f/u Speech and Language eval and recs f/u Swallow eval recs Cont tight BP control Nifedipine Keppra for seizure ppx NPO aspiration precautions Tube feeds 2. Uterine CA. S/p neurosurg bx Heme/Onc following Radiation Onc consulted radiotherapy when more clinically stable 3. Bacteremia Coag neg staph in Blood cxs ID following continue IV Abx: Vanc, Aztreonam Repeat Blood Cxs NGTD @ 4 days 4. Hypernatremia Nephrology following likely secondary to having hypertonic saline in the setting of intracranial hemorrhage continue to monitor 5. PPx Protonix SCDs Discussed case with Dr. Simone Berry PGY1 <Nik Nichols A - Last Filed: 08/07/17 18:50> Objective - Vital Signs/Intake and Output Vital Signs (last 24 hours): Temp Pulse Resp BP Pulse Ox 99.5 F 84 19 143/71 100 08/07/17 18:01 08/07/17 18:01 08/07/17 18:01 08/07/17 18:01 08/07/17 18:01 Intake and Output: 08/07/17 08/07/17 06:59 18:59 Intake Total 550 Output Total 1600 Balance -1050 - Medications Medications: Current Medications Acetaminophen (Tylenol 650mg/20.3ml Solution Ud) 650 mg PO Q6H PRN PRN Reason: Headache Last Admin: 08/07/17 09:25 Dose: 650 mg Artificial Tears (Artificial Tears Opht Oint) 0 gm OU BID [facility] Last Admin: 08/07/17 17:21 Dose: 2 applic Levetiracetam (Keppra 500mg Ivpb) 500 mg in 100 mls @ 460 mls/hr IVPB Q12 [facility] Last Admin: 08/07/17 09:19 Dose: 460 mls/hr Sodium Chloride (Hypertonic Saline 3%) 500 mls @ 50 mls/hr IV .Q10H [facility] Last Admin: 08/03/17 18:38 Dose: Not Given Vancomycin HCl (Vancomycin 1gm) 1 gm in 250 mls @ 167 mls/hr IVPB Q12H [facility] PRN Reason: Protocol Last Admin: 08/07/17 12:00 Dose: 167 mls/hr Aztreonam (Azactam 1 Gm) 100 mls @ 100 mls/hr IVPB Q8 [facility] PRN Reason: Protocol Last Admin: 08/07/17 14:41 Dose: 100 mls/hr Insulin Human Lispro (Humalog High) 0 units SC Q4H [facility] PRN Reason: Protocol Last Admin: 08/07/17 15:34 Dose: 7 units Nifedipine (Procardia) 10 mg PO Q8 [facility] Last Admin: 08/07/17 14:42 Dose: 10 mg Nystatin/Triamcinolone Acetonide (Nystatin/Triamcinolone Cream) 1 ea TOP BID PRN PRN Reason: Excoriation Last Admin: 08/06/17 17:07 Dose: 1 applic Pantoprazole Sodium (Protonix Inj) 40 mg IVP DAILY [facility] Last Admin: 08/07/17 09:19 Dose: 40 mg - Labs Labs: 08/06/17 05:00 08/06/17 05:00 PT 10.5 Seconds (9.9-11.8) 08/01/17 08:20 INR 0.97 (0.93-1.08) 08/01/17 08:20 APTT 27.3 Seconds (23.7-30.8) 08/01/17 08:20 Attending/Attestation - Attestation I have personally seen and examined this patient.: Yes I have fully participated in the care of the patient.: Yes I have reviewed all pertinent clinical information, including history, physical exam and plan: Yes Notes (Text): 08/07/17 18:46 67 year old female with past medical history of uterine cancer, hypertension, diabetes, dyslipidemia and history of right parietal mass s/p recent craniotomy/ biopsy who presented with altered mental status. She was found to hvae hemorrhagic CVA with significant midline shift. She was seen by neurology and neurosurgery, no plan for intervention. Continue with physical therapy and speech follow up. Pathology report showed metastatic uterine cancer. Hem/Onc and Rad/Onc evaluations were appreciated. Will follow up with recommendations. Labs this morning were still pending. is at bedside and questions were answered. Nik Nichols MD Hospitalist.
--- NOTE | 2017-08-07 21:59 | CP.PCM.PN ---
Subjective - Date & Time of Evaluation Date of Evaluation: 08/07/17 Time of Evaluation: 19:30 - Subjective Subjective: Infectious Disease Follow Up August 07, 2017 73 yo female presented with fall and altered mental status. She was found at home on floor by family who heard her fall. The patient was brought into the ER and found to be in uncontrolled hypertension and requiring intubation on arrival in the ER. The patient was found to hae a 4.4 cm left occipital intracranial hemorrhage with intraventricular extension. Patient is recovering but still having episodes of low grade fevers. Patient herself is not making any new complaints. She still has residual right sided weakness. Afebrile in the past 48 hours. Repeat cultures sent. Cannot rule out central fever. Cultures negative to date from sets taken on 07/28/2017 and 07/29/2017. She was extubated 08/04/2017. Patient opens her eyes and can follow an occasional command such as squeezing hand. Noted family has rescinded DNR/DNI. Noted Radiation Oncology considering palliative radiation if the patient shows some reasonable improvement during this hospitalization. Blood cultures with coagulase negative staph which is most likely contamination. Patient can follow some commands. Objective - Vital Signs/Intake and Output Vital Signs (last 24 hours): Temp Pulse Resp BP Pulse Ox 99.3 F 72 21 150/72 94 L 08/07/17 20:01 08/07/17 20:01 08/07/17 20:01 08/07/17 21:01 08/07/17 20:01 - Medications Medications: Current Medications Acetaminophen (Tylenol 650mg/20.3ml Solution Ud) 650 mg PO Q6H PRN PRN Reason: Headache Last Admin: 08/07/17 09:25 Dose: 650 mg Artificial Tears (Artificial Tears Opht Oint) 0 gm OU BID [facility] Last Admin: 08/07/17 17:21 Dose: 2 applic Levetiracetam (Keppra 500mg Ivpb) 500 mg in 100 mls @ 460 mls/hr IVPB Q12 [facility] Last Admin: 08/07/17 20:58 Dose: 460 mls/hr Sodium Chloride (Hypertonic Saline 3%) 500 mls @ 50 mls/hr IV .Q10H [facility] Last Admin: 08/03/17 18:38 Dose: Not Given Vancomycin HCl (Vancomycin 1gm) 1 gm in 250 mls @ 167 mls/hr IVPB Q12H [facility] PRN Reason: Protocol Last Admin: 08/07/17 12:00 Dose: 167 mls/hr Aztreonam (Azactam 1 Gm) 100 mls @ 100 mls/hr IVPB Q8 [facility] PRN Reason: Protocol Last Admin: 08/07/17 21:00 Dose: 100 mls/hr Insulin Human Lispro (Humalog High) 0 units SC Q4H [facility] PRN Reason: Protocol Last Admin: 08/07/17 19:45 Dose: Not Given Nifedipine (Procardia) 10 mg PO Q8 [facility] Last Admin: 08/07/17 21:01 Dose: 10 mg Nystatin/Triamcinolone Acetonide (Nystatin/Triamcinolone Cream) 1 ea TOP BID PRN PRN Reason: Excoriation Last Admin: 08/06/17 17:07 Dose: 1 applic Pantoprazole Sodium (Protonix Inj) 40 mg IVP DAILY [facility] Last Admin: 08/07/17 09:19 Dose: 40 mg - Labs Labs: 08/06/17 05:00 08/06/17 05:00 PT 10.5 Seconds (9.9-11.8) 08/01/17 08:20 INR 0.97 (0.93-1.08) 08/01/17 08:20 APTT 27.3 Seconds (23.7-30.8) 08/01/17 08:20 - Constitutional Appears: Confused, Chronically Ill - Head Exam Head Exam: ATRAUMATIC, NORMOCEPHALIC - Eye Exam Eye Exam: EOMI, PERRL Pupil Exam: NORMAL ACCOMODATION, PERRL - ENT Exam ENT Exam: Mucous Membranes Moist, Normal External Ear Exam, TM's Normal Bilaterally - Neck Exam Neck Exam: Full ROM, Normal Inspection - Respiratory Exam Respiratory Exam: Clear to Ausculation Bilateral, NORMAL BREATHING PATTERN. absent: Rales, Rhonchi, Wheezes - Cardiovascular Exam Cardiovascular Exam: REGULAR RHYTHM, RRR, +S1, +S2 - GI/Abdominal Exam GI & Abdominal Exam: Soft, Normal Bowel Sounds. absent: Distended, Tenderness - Extremities Exam Extremities Exam: Joint Swelling, Pedal Edema - Neurological Exam Neurological Exam: Alert, Awake Additional comments: limited understanding, very limited speech, left neglect - Psychiatric Exam Additional comments: Aphasic Assessment and Plan - Assessment and Plan (Free Text) Assessment: 73 yo female with low grade fevers of up to 100.4 F after suffering from a 4.4cm left occipital intracranial hemorrhage with intraventricular extension. The patient initially had fevers up to 101.7 F. Clinically, the patient has been improving. Supportive care. She was intubated on admission. She was extubated on 07/25/2017. She speaks greek mostly. The family states that the patient is acting and speaking appropriately other than the slurring of speech due to her right sided residual weakness. Alfredo cultures sent. There was a mild initial leukocytosis on admission but this has slowly improved. Fever trend has shown improvement. The cultures done to date have been negative so far. No consolidation seen on Chest X-ray. Patient answering question during interview and examination. Supportive care. Currently on Unasyn for antibiotic coverage. Noted C. Diff and repeat urine culture sent. No adequate sample for C. diff testing. Would obtain urinalysis. Would continue Unasyn for now. The current temperature is more likely secondary to the recent intracranial hemorrhage. Leukocytosis of 10.2 today but with a normal differential. Multiple culture sets performed to date are negative. Afebrile for the past 48 hours now. Cultures negative to date at greater than 48 hours. Cannot rule out central fever which is the most likely scenario. It appears as the hemorrhage improves the fevers are improving. The patient still with residual right sided weakness. Last CT done on 07/30/2017 showing interval evolution of known subacute hematoma in left occipital lobe without midline shift or herniation. Resolving intraventricular hemorrhage with residual mild intraventricular hemorrhage. If fevers spike again to over 102, repeat blood and urine cultures. She remains on IV Vancomycin and Aztreonam for antibiotic coverage. She has been afebrile for the past few days. Consider stopping antibiotics at 10 days of administration. Extubated 08/04/2017. Able to follow occasional simple command. Supportive care. [facility] given Uterine cancer with brain metastasis and the recent hemorrhagic CVA. Thank you for allowing me to participate in the care of the patient, we will follow with you.
[2017-08-08] MEDS: Insulin Lispro (HUMAlog) HIGH Coverage SC SCH ×6 (00:14→20:00)
[2017-08-08] MEDS: Vancomycin 1gm in NS 250ml 1 GM/250 ML BAG IVPB SCH ×3 (00:15→11:33)
[2017-08-08] MEDS: Aztreonam 1 Gm in NS 100mL 100 ML IVPB SCH ×2 (05:12→14:49)
[2017-08-08 07:03] LABS: EOS # 0.1 (0.0-0.7); EOS % 1.5 % (1.5-5.0); GRAN # 6.98 (1.4-6.5); GRAN % 87.5 % (50.0-68.0); HEMATOCRIT 27.7 % (36.0-48.0); LYMPH # 0.6 (1.2-3.4); MEAN CELL VOLUME 88.8 fl (80.0-105.0); MEAN CORPUSCULAR HEMOGLOBIN 28.5 pg (25.0-35.0); MEAN CORPUSCULAR HGB CONC 32.1 g/dl (31.0-37.0); MEAN PLATELET VOLUME 9.6 fl (7.0-11.0); MONO # 0.2 (0.1-0.6); RED CELL DISTRIBUTION WIDTH 12.8 % (11.5-14.5)
[2017-08-08 07:33] LABS: ALB/GLOB RATIO 1.3 (1.1-1.8); ALKALINE PHOSPHATASE 104 U/L (38-126); ALT/SGPT 40 U/L (7-56); AST/SGOT 39 U/L (14-36); BILIRUBIN,TOTAL 0.6 mg/dL (0.2-1.3); BLOOD UREA NITROGEN 23 mg/dL (7-21); CALCIUM 9.3 mg/dL (8.4-10.5); CARBON DIOXIDE 34 mmol/L (21-33); CHLORIDE 99 mmol/L (98-107); GFR AFRICAN-AMERICAN > 60; GLUCOSE,RANDOM 225 mg/dL (70-110); MAGNESIUM 1.6 mg/dL (1.7-2.2); PHOSPHOROUS 3.2 mg/dL (2.5-4.5); POTASSIUM 3.8 mmol/L (3.6-5.0); SODIUM 140 mmol/L (132-148); TOTAL PROTEIN 6.1 g/dL (5.8-8.3)
[2017-08-08] MEDS: levETIRAcetam 500mg IVPB 500 MG/100 ML BAG IVPB SCH ×3 (08:03→21:39)
[2017-08-08] MEDS: Mineral Oil/Petrolatum Opht Oint(3.5 gm) OU SCH ×2 (09:20→18:58)
[2017-08-08] MEDS: Acetaminophen 650mg/20.3ml solution UD PO PRN (10:59)
--- NOTE | 2017-08-08 17:10 | CP.PCM.PN ---
<KristiRashaun - Last Filed: 08/08/17 17:40> Subjective - Date & Time of Evaluation Date of Evaluation: 08/08/17 Time of Evaluation: 07:45 - Subjective Subjective: Medicine Progress note. Dr. Nichols Pt seen and examined at bedside. No acute events overnight. Patient responds to questions by gestures using right hand. Still no improvement with the left side. Speech and Language continue to treat patient, recommend staff assisted trial PO with puree and honey thick. Objective - Vital Signs/Intake and Output Vital Signs (last 24 hours): Temp Pulse Resp BP Pulse Ox 98.0 F 87 33 H 153/76 H 100 08/08/17 12:00 08/08/17 14:52 08/08/17 14:01 08/08/17 14:52 08/08/17 14:01 Intake and Output: 08/08/17 08/08/17 06:59 18:59 Intake Total 1350 Output Total 350 Balance 1000 - Medications Medications: Current Medications Acetaminophen (Tylenol 650mg/20.3ml Solution Ud) 650 mg PO Q6H PRN PRN Reason: Headache Last Admin: 08/08/17 10:59 Dose: 650 mg Artificial Tears (Artificial Tears Opht Oint) 0 gm OU BID [facility] Last Admin: 08/08/17 09:20 Dose: 1 applic Levetiracetam (Keppra 500mg Ivpb) 500 mg in 100 mls @ 460 mls/hr IVPB Q12 [facility] Last Admin: 08/08/17 09:21 Dose: Not Given Sodium Chloride (Hypertonic Saline 3%) 500 mls @ 50 mls/hr IV .Q10H [facility] Last Admin: 08/03/17 18:38 Dose: Not Given Vancomycin HCl (Vancomycin 1gm) 1 gm in 250 mls @ 167 mls/hr IVPB Q12H [facility] PRN Reason: Protocol Last Admin: 08/08/17 11:33 Dose: Not Given Aztreonam (Azactam 1 Gm) 100 mls @ 100 mls/hr IVPB Q8 [facility] PRN Reason: Protocol Last Admin: 08/08/17 14:49 Dose: 100 mls/hr Insulin Human Lispro (Humalog High) 0 units SC Q4H [facility] PRN Reason: Protocol Last Admin: 08/08/17 12:40 Dose: 7 units Nifedipine (Procardia) 10 mg PO Q8 [facility] Last Admin: 08/08/17 14:52 Dose: 10 mg Nystatin/Triamcinolone Acetonide (Nystatin/Triamcinolone Cream) 1 ea TOP BID PRN PRN Reason: Excoriation Last Admin: 08/06/17 17:07 Dose: 1 applic Pantoprazole Sodium (Protonix Inj) 40 mg IVP DAILY [facility] Last Admin: 08/08/17 09:21 Dose: Not Given - Labs Labs: 08/08/17 05:20 08/08/17 05:20 PT 10.5 Seconds (9.9-11.8) 08/01/17 08:20 INR 0.97 (0.93-1.08) 08/01/17 08:20 APTT 27.3 Seconds (23.7-30.8) 08/01/17 08:20 - Constitutional Appears: Well, No Acute Distress - Head Exam Head Exam: NORMOCEPHALIC Additional comments: posterior scalp intact with sahara - Eye Exam Eye Exam: Normal appearance Additional comments: tracks to midline and right side - ENT Exam ENT Exam: Mucous Membranes Moist - Neck Exam Neck Exam: Full ROM - Respiratory Exam Respiratory Exam: Clear to Ausculation Bilateral, NORMAL BREATHING PATTERN. absent: Rhonchi, Wheezes, Respiratory Distress - Cardiovascular Exam Cardiovascular Exam: RRR, +S1, +S2. absent: JVD - GI/Abdominal Exam GI & Abdominal Exam: Soft. absent: Distended, Firm, Guarding, Rigid, Tenderness Assessment and Plan - Assessment and Plan (Free Text) Assessment: 67yo F with PMhx of Uterine CA s/p chemo/radiation, s/p total hysterectomy w/ bilat salpingooopherectomy, DM, HTN, HLD here with nausea, TY, worsening mental status. She was found to have hemorrhagic CVA with midline shift, s/p decompressive craniotomy. 1. Hemorrhagic CVA CT - new onset large hemorrhage in right frontoparietal lobe. Brain MRI - interval appearance of foci of acute hemorrhage at right posterior frontopariatal lobe Possible Uterine CA met to brain Neurology signed off continue current treatment Neurosurgery on board no further surgical intervention indicated Speech and Language eval: Trial of PO puree and honey thick by staff. Continue therapy Cont tight BP control Nifedipine Keppra for seizure ppx NPO aspiration precautions Tube feeds 2. Uterine CA. S/p neurosurg bx Heme/Onc following Radiation Onc consulted radiotherapy when more stable on an out-patient basis 3. Bacteremia Coag neg staph in Blood cxs likely contaminant ID following Will discontinue ABX today Repeat Blood Cxs NGTD @ 4 days 4. Hypernatremia Nephrology following likely secondary to having hypertonic saline in the setting of intracranial hemorrhage continue to monitor 5. Hx of DM Accuchecks ISS high dose 6. PPx Protonix SCDs on tube feeds Discussed case with Dr. Simone Berry PGY1 <Nik Nichols - Last Filed: 08/08/17 18:48> Objective - Vital Signs/Intake and Output Vital Signs (last 24 hours): Temp Pulse Resp BP Pulse Ox 98.0 F 87 33 H 153/76 H 100 08/08/17 12:00 08/08/17 14:52 08/08/17 14:01 08/08/17 14:52 08/08/17 14:01 Intake and Output: 08/08/17 08/08/17 06:59 18:59 Intake Total 1350 Output Total 350 Balance 1000 - Medications Medications: Current Medications Acetaminophen (Tylenol 650mg/20.3ml Solution Ud) 650 mg PO Q6H PRN PRN Reason: Headache Last Admin: 08/08/17 10:59 Dose: 650 mg Artificial Tears (Artificial Tears Opht Oint) 0 gm OU BID [facility] Last Admin: 08/08/17 09:20 Dose: 1 applic Levetiracetam (Keppra 500mg Ivpb) 500 mg in 100 mls @ 460 mls/hr IVPB Q12 [facility] Last Admin: 08/08/17 09:21 Dose: Not Given Sodium Chloride (Hypertonic Saline 3%) 500 mls @ 50 mls/hr IV .Q10H [facility] Last Admin: 08/03/17 18:38 Dose: Not Given Insulin Human Lispro (Humalog High) 0 units SC Q4H [facility] PRN Reason: Protocol Last Admin: 08/08/17 17:35 Dose: 7 units Nifedipine (Procardia) 10 mg PO Q8 [facility] Last Admin: 08/08/17 14:52 Dose: 10 mg Nystatin/Triamcinolone Acetonide (Nystatin/Triamcinolone Cream) 1 ea TOP BID PRN PRN Reason: Excoriation Last Admin: 08/06/17 17:07 Dose: 1 applic Pantoprazole Sodium (Protonix Inj) 40 mg IVP DAILY [facility] Last Admin: 08/08/17 09:21 Dose: Not Given - Labs Labs: 08/08/17 05:20 08/08/17 05:20 PT 10.5 Seconds (9.9-11.8) 08/01/17 08:20 INR 0.97 (0.93-1.08) 08/01/17 08:20 APTT 27.3 Seconds (23.7-30.8) 08/01/17 08:20 Attending/Attestation - Attestation I have personally seen and examined this patient.: Yes I have fully participated in the care of the patient.: Yes I have reviewed all pertinent clinical information, including history, physical exam and plan: Yes Notes (Text): 08/08/17 18:46 67 year old female with past medical history of uterine cancer, hypertension, diabetes, dyslipidemia and history of right parietal mass s/p recent craniotomy/ biopsy who presented with altered mental status. She was found to hvae hemorrhagic CVA with significant midline shift. She was seen by neurology and neurosurgery, no plan for intervention. Continue with physical therapy. Speech and swallow follow up was appreciated. Pathology report showed metastatic uterine cancer. Hem/Onc and Rad/Onc evaluations were appreciated. Nik Nichols MD Hospitalist.
--- NOTE | 2017-08-08 19:42 | CP.PCM.PN ---
Subjective - Date & Time of Evaluation Date of Evaluation: 08/08/17 Time of Evaluation: 18:30 - Subjective Subjective: Infectious Disease Follow Up August 08, 2017 73 yo female presented with fall and altered mental status. She was found at home on floor by family who heard her fall. The patient was brought into the ER and found to be in uncontrolled hypertension and requiring intubation on arrival in the ER. The patient was found to hae a 4.4 cm left occipital intracranial hemorrhage with intraventricular extension. Patient is recovering but still having episodes of low grade fevers. Patient herself is not making any new complaints. She still has residual right sided weakness. Afebrile in the past 48 hours. Repeat cultures sent. Cannot rule out central fever. Cultures negative to date from sets taken on 07/28/2017 and 07/29/2017. She was extubated 08/04/2017. Patient opens her eyes and can follow an occasional command such as squeezing hand. Noted family has rescinded DNR/DNI. Noted Radiation Oncology considering palliative radiation if the patient shows some reasonable improvement during this hospitalization. Blood cultures with coagulase negative staph which is most likely contamination. Patient can follow some commands. Objective - Vital Signs/Intake and Output Vital Signs (last 24 hours): Temp Pulse Resp BP Pulse Ox 98.7 F 85 22 132/64 98 08/08/17 16:00 08/08/17 18:01 08/08/17 18:01 08/08/17 18:01 08/08/17 18:01 Intake and Output: 08/08/17 08/09/17 18:59 06:59 Intake Total 750 Output Total 1000 Balance -250 - Medications Medications: Current Medications Acetaminophen (Tylenol 650mg/20.3ml Solution Ud) 650 mg PO Q6H PRN PRN Reason: Headache Last Admin: 08/08/17 10:59 Dose: 650 mg Artificial Tears (Artificial Tears Opht Oint) 0 gm OU BID [facility] Last Admin: 08/08/17 18:58 Dose: 1 applic Levetiracetam (Keppra 500mg Ivpb) 500 mg in 100 mls @ 460 mls/hr IVPB Q12 [facility] Last Admin: 08/08/17 09:21 Dose: Not Given Sodium Chloride (Hypertonic Saline 3%) 500 mls @ 50 mls/hr IV .Q10H [facility] Last Admin: 08/03/17 18:38 Dose: Not Given Insulin Human Lispro (Humalog High) 0 units SC Q4H [facility] PRN Reason: Protocol Last Admin: 08/08/17 17:35 Dose: 7 units Nifedipine (Procardia) 10 mg PO Q8 [facility] Last Admin: 08/08/17 14:52 Dose: 10 mg Nystatin/Triamcinolone Acetonide (Nystatin/Triamcinolone Cream) 1 ea TOP BID PRN PRN Reason: Excoriation Last Admin: 08/06/17 17:07 Dose: 1 applic Pantoprazole Sodium (Protonix Inj) 40 mg IVP DAILY [facility] Last Admin: 08/08/17 09:21 Dose: Not Given - Labs Labs: 08/08/17 05:20 08/08/17 05:20 PT 10.5 Seconds (9.9-11.8) 08/01/17 08:20 INR 0.97 (0.93-1.08) 08/01/17 08:20 APTT 27.3 Seconds (23.7-30.8) 08/01/17 08:20 - Constitutional Appears: Non-toxic, Confused, Chronically Ill - Head Exam Head Exam: ATRAUMATIC, NORMOCEPHALIC - Eye Exam Eye Exam: EOMI, PERRL Pupil Exam: NORMAL ACCOMODATION, PERRL - ENT Exam ENT Exam: Mucous Membranes Moist, Normal External Ear Exam, TM's Normal Bilaterally - Neck Exam Neck Exam: Full ROM, Normal Inspection - Respiratory Exam Respiratory Exam: Clear to Ausculation Bilateral, NORMAL BREATHING PATTERN. absent: Rales, Rhonchi, Wheezes - Cardiovascular Exam Cardiovascular Exam: REGULAR RHYTHM, RRR, +S1, +S2 - GI/Abdominal Exam GI & Abdominal Exam: Soft, Normal Bowel Sounds. absent: Distended, Tenderness - Extremities Exam Extremities Exam: Joint Swelling, Pedal Edema - Neurological Exam Neurological Exam: Alert, Awake Additional comments: limited understanding, very limited speech, left neglect - Psychiatric Exam Psychiatric exam: Normal Affect, Normal Mood - Skin Skin Exam: Intact, Normal Color Assessment and Plan - Assessment and Plan (Free Text) Assessment: 73 yo female with low grade fevers of up to 100.4 F after suffering from a 4.4cm left occipital intracranial hemorrhage with intraventricular extension. The patient initially had fevers up to 101.7 F. Clinically, the patient has been improving. Supportive care. She was intubated on admission. She was extubated on 07/25/2017. She speaks austrian mostly. The family states that the patient is acting and speaking appropriately other than the slurring of speech due to her right sided residual weakness. Alfredo cultures sent. There was a mild initial leukocytosis on admission but this has slowly improved. Fever trend has shown improvement. The cultures done to date have been negative so far. No consolidation seen on Chest X-ray. Patient answering question during interview and examination. Supportive care. Currently on Unasyn for antibiotic coverage. Noted C. Diff and repeat urine culture sent. No adequate sample for C. diff testing. Would obtain urinalysis. Would continue Unasyn for now. The current temperature is more likely secondary to the recent intracranial hemorrhage. Leukocytosis of 10.2 today but with a normal differential. Multiple culture sets performed to date are negative. Afebrile for the past 48 hours now. Cultures negative to date at greater than 48 hours. Cannot rule out central fever which is the most likely scenario. It appears as the hemorrhage improves the fevers are improving. The patient still with residual right sided weakness. Last CT done on 07/30/2017 showing interval evolution of known subacute hematoma in left occipital lobe without midline shift or herniation. Resolving intraventricular hemorrhage with residual mild intraventricular hemorrhage. If fevers spike again to over 102, repeat blood and urine cultures. She remains on IV Vancomycin and Aztreonam for antibiotic coverage. She has been afebrile for the past few days. Consider stopping antibiotics at no more than 10 days of administration. On 7 days of antibiotics now... discussed with the medical team, can stop antibiotics today. Extubated 08/04/2017. Able to follow occasional simple command. Supportive care. Poor ad terminal makeup operator prognosis given Uterine cancer with brain metastasis and the recent hemorrhagic CVA. No new infectious disease issues. Thank you for allowing me to participate in the care of the patient, we will follow with you.
[2017-08-09] MEDS: Acetaminophen 650mg/20.3ml solution UD PO PRN (01:18)
[2017-08-09] MEDS: Insulin Lispro (HUMAlog) HIGH Coverage SC SCH ×6 (06:14→22:54)
[2017-08-09] MEDS: Mineral Oil/Petrolatum Opht Oint(3.5 gm) OU SCH ×2 (09:46→17:27)
[2017-08-09] MEDS: levETIRAcetam 500mg IVPB 500 MG/100 ML BAG IVPB SCH ×2 (09:47→22:23)
[2017-08-09] MEDS: Nystatin-Triamcinolone Cream(30 gm) TOP PRN (09:48)
[2017-08-09 09:57] LABS: HEMATOCRIT 26.8 % (36.0-48.0); MEAN CELL VOLUME 88.4 fl (80.0-105.0); MEAN CORPUSCULAR HGB CONC 32.8 g/dl (31.0-37.0); MEAN PLATELET VOLUME 9.6 fl (7.0-11.0); RED CELL DISTRIBUTION WIDTH 12.9 % (11.5-14.5); WHITE BLOOD COUNT 6.7 10^3/ul (4.5-11.0)
[2017-08-09 10:04] LABS: ALB/GLOB RATIO 1.2 (1.1-1.8); ALKALINE PHOSPHATASE 100 U/L (38-126); ALT/SGPT 51 U/L (7-56); AST/SGOT 40 U/L (14-36); BILIRUBIN,TOTAL 0.7 mg/dL (0.2-1.3); BLOOD UREA NITROGEN 22 mg/dL (7-21); CALCIUM 9.6 mg/dL (8.4-10.5); CARBON DIOXIDE 36 mmol/L (21-33); CHLORIDE 94 mmol/L (95-110); GFR AFRICAN-AMERICAN > 60; GLUCOSE,RANDOM 278 mg/dL (70-110); POTASSIUM 3.5 mmol/L (3.6-5.0); SODIUM 138 mmol/L (132-148); TOTAL PROTEIN 6.2 g/dL (5.8-8.3)
--- NOTE | 2017-08-09 13:18 | CP.PCM.PN ---
<Yohan Candelario - Last Filed: 08/09/17 13:21> Subjective - Date & Time of Evaluation Date of Evaluation: 08/09/17 Time of Evaluation: 13:12 - Subjective Subjective: Pt seen and examined at bedside. Pt doing well overnight with no acute events. Pt is lethargic this morning, but obeying commands. Denies CP, SOB, N/V/D, fever , chills. Objective - Vital Signs/Intake and Output Vital Signs (last 24 hours): Temp Pulse Resp BP Pulse Ox 98.3 F 108 H 25 H 157/73 H 95 08/09/17 08:00 08/09/17 12:00 08/09/17 08:01 08/09/17 08:02 08/09/17 07:23 Intake and Output: 08/09/17 08/09/17 06:59 18:59 Intake Total 900 Output Total 850 Balance 50 - Medications Medications: Current Medications Acetaminophen (Tylenol 650mg/20.3ml Solution Ud) 650 mg PO Q6H PRN PRN Reason: Headache Last Admin: 08/09/17 01:18 Dose: 650 mg Artificial Tears (Artificial Tears Opht Oint) 0 gm OU BID [facility] Last Admin: 08/09/17 09:46 Dose: 1 applic Levetiracetam (Keppra 500mg Ivpb) 500 mg in 100 mls @ 460 mls/hr IVPB Q12 [facility] Last Admin: 08/09/17 09:47 Dose: 460 mls/hr Sodium Chloride (Hypertonic Saline 3%) 500 mls @ 50 mls/hr IV .Q10H [facility] Last Admin: 08/03/17 18:38 Dose: Not Given Insulin Human Lispro (Humalog High) 0 units SC Q4H [facility] PRN Reason: Protocol Last Admin: 08/09/17 12:00 Dose: 7 units Nifedipine (Procardia) 10 mg PO Q8 [facility] Last Admin: 08/09/17 06:01 Dose: 10 mg Nystatin/Triamcinolone Acetonide (Nystatin/Triamcinolone Cream) 1 ea TOP BID PRN PRN Reason: Excoriation Last Admin: 08/09/17 09:48 Dose: 1 applic Pantoprazole Sodium (Protonix Inj) 40 mg IVP DAILY [facility] Last Admin: 08/09/17 09:47 Dose: 40 mg - Labs Labs: 08/09/17 09:52 08/09/17 09:52 PT 10.5 Seconds (9.9-11.8) 08/01/17 08:20 INR 0.97 (0.93-1.08) 08/01/17 08:20 APTT 27.3 Seconds (23.7-30.8) 08/01/17 08:20 - Constitutional Appears: Non-toxic, No Acute Distress - Head Exam Head Exam: ATRAUMATIC, NORMAL INSPECTION, NORMOCEPHALIC - ENT Exam Additional comments: NGT in place - Respiratory Exam Respiratory Exam: Clear to Ausculation Bilateral, NORMAL BREATHING PATTERN. absent: Rales, Rhonchi, Wheezes - Cardiovascular Exam Cardiovascular Exam: RRR, +S1, +S2 - GI/Abdominal Exam GI & Abdominal Exam: Soft, Normal Bowel Sounds. absent: Tenderness - Extremities Exam Extremities Exam: Pedal Edema (+1 b/l). absent: Calf Tenderness - Neurological Exam Neurological Exam: Alert, Awake. absent: Oriented x3 - Psychiatric Exam Psychiatric exam: Normal Affect, Normal Mood - Skin Skin Exam: Intact, Normal Color, Warm Assessment and Plan - Assessment and Plan (Free Text) Plan: 67 y/o F with PMhx of Uterine CA s/p chemo/radiation and s/p total hysterectomy w/ bilateral salpingooopherectomy, DM, HTN, HLD presents with hemorrhagic CVA with midline shift, s/p decompressive craniotomy. Will obtain PT eval 1. Frontoparietal hemorrhagic CVA No surgical intervention Neurology signed off at this time Diet changed as per speech pathology recs - Pureed, honey thickened Maintain tight blood pressure control Keppra for seizure ppx NPO aspiration precautions Continue Tube feeds 2. Uterine CA. S/p neurosurg bx Heme/Onc following Radiation Onc recommends further therapy once stable as outpt 3. Bacteremia Blood cultures negative ID following Repeat Blood Cxs 4. Hx of DM Accuchecks ISS high dose 5. PPx Protonix SCDs [employer], PGY-2 <Nik Nichols - Last Filed: 08/09/17 17:14> Objective - Vital Signs/Intake and Output Vital Signs (last 24 hours): Temp Pulse Resp BP Pulse Ox 98.0 F 119 H 25 H 164/85 H 95 08/09/17 16:00 08/09/17 15:42 08/09/17 08:01 08/09/17 15:42 08/09/17 07:23 Intake and Output: 08/09/17 08/09/17 06:59 18:59 Intake Total 900 Output Total 850 Balance 50 - Medications Medications: Current Medications Acetaminophen (Tylenol 650mg/20.3ml Solution Ud) 650 mg PO Q6H PRN PRN Reason: Headache Last Admin: 08/09/17 01:18 Dose: 650 mg Artificial Tears (Artificial Tears Opht Oint) 0 gm OU BID [facility] Last Admin: 08/09/17 09:46 Dose: 1 applic Levetiracetam (Keppra 500mg Ivpb) 500 mg in 100 mls @ 460 mls/hr IVPB Q12 [facility] Last Admin: 08/09/17 09:47 Dose: 460 mls/hr Sodium Chloride (Hypertonic Saline 3%) 500 mls @ 50 mls/hr IV .Q10H [facility] Last Admin: 08/03/17 18:38 Dose: Not Given Potassium Chloride (Potassium Chloride 10 Meq/100 Ml) 10 meq in 100 mls @ 100 mls/hr IVPB Q2H [facility] Stop: 08/09/17 18:44 Last Admin: 08/09/17 16:55 Dose: 100 mls/hr Insulin Human Lispro (Humalog High) 0 units SC Q4H [facility] PRN Reason: Protocol Last Admin: 08/09/17 15:49 Dose: 7 units Nifedipine (Procardia) 10 mg PO Q8 [facility] Last Admin: 08/09/17 15:42 Dose: 10 mg Nystatin/Triamcinolone Acetonide (Nystatin/Triamcinolone Cream) 1 ea TOP BID PRN PRN Reason: Excoriation Last Admin: 08/09/17 09:48 Dose: 1 applic Pantoprazole Sodium (Protonix Inj) 40 mg IVP DAILY [facility] Last Admin: 08/09/17 09:47 Dose: 40 mg - Labs Labs: 08/09/17 09:52 08/09/17 09:52 PT 10.5 Seconds (9.9-11.8) 08/01/17 08:20 INR 0.97 (0.93-1.08) 08/01/17 08:20 APTT 27.3 Seconds (23.7-30.8) 08/01/17 08:20 Attending/Attestation - Attestation I have personally seen and examined this patient.: Yes I have fully participated in the care of the patient.: Yes I have reviewed all pertinent clinical information, including history, physical exam and plan: Yes Notes (Text): 08/09/17 17:11 67 year old female with past medical history of uterine cancer, hypertension, diabetes, dyslipidemia and history of right parietal mass s/p recent craniotomy/ biopsy who presented with altered mental status. She was found to hvae hemorrhagic CVA with significant midline shift. She was seen by neurology and neurosurgery, no plan for intervention. Continue with physical therapy. Advance diet as per speech and swallow recommendations. Pathology report showed metastatic uterine cancer. Hem/Onc and Rad/Onc evaluations were appreciated. is at bedside and questions were answered. Nik Nichols MD Hospitalist.
--- NOTE | 2017-08-09 13:43 | CP.PCM.PN ---
Subjective - Date & Time of Evaluation Date of Evaluation: 08/08/17 Time of Evaluation: 18:00 - Subjective Subjective: Appears fatigued, lethargic Objective - Vital Signs/Intake and Output Vital Signs (last 24 hours): Temp Pulse Resp BP Pulse Ox 98.3 F 108 H 25 H 157/73 H 95 08/09/17 08:00 08/09/17 12:00 08/09/17 08:01 08/09/17 08:02 08/09/17 07:23 Intake and Output: 08/09/17 08/09/17 06:59 18:59 Intake Total 900 Output Total 850 Balance 50 - Medications Medications: Current Medications Acetaminophen (Tylenol 650mg/20.3ml Solution Ud) 650 mg PO Q6H PRN PRN Reason: Headache Last Admin: 08/09/17 01:18 Dose: 650 mg Artificial Tears (Artificial Tears Opht Oint) 0 gm OU BID [facility] Last Admin: 08/09/17 09:46 Dose: 1 applic Levetiracetam (Keppra 500mg Ivpb) 500 mg in 100 mls @ 460 mls/hr IVPB Q12 [facility] Last Admin: 08/09/17 09:47 Dose: 460 mls/hr Sodium Chloride (Hypertonic Saline 3%) 500 mls @ 50 mls/hr IV .Q10H [facility] Last Admin: 08/03/17 18:38 Dose: Not Given Insulin Human Lispro (Humalog High) 0 units SC Q4H [facility] PRN Reason: Protocol Last Admin: 08/09/17 12:00 Dose: 7 units Nifedipine (Procardia) 10 mg PO Q8 [facility] Last Admin: 08/09/17 06:01 Dose: 10 mg Nystatin/Triamcinolone Acetonide (Nystatin/Triamcinolone Cream) 1 ea TOP BID PRN PRN Reason: Excoriation Last Admin: 08/09/17 09:48 Dose: 1 applic Pantoprazole Sodium (Protonix Inj) 40 mg IVP DAILY [facility] Last Admin: 08/09/17 09:47 Dose: 40 mg - Labs Labs: 08/09/17 09:52 08/09/17 09:52 PT 10.5 Seconds (9.9-11.8) 08/01/17 08:20 INR 0.97 (0.93-1.08) 08/01/17 08:20 APTT 27.3 Seconds (23.7-30.8) 08/01/17 08:20 - Head Exam Head Exam: ATRAUMATIC - Eye Exam Eye Exam: Normal appearance - ENT Exam ENT Exam: Mucous Membranes Dry - Respiratory Exam Respiratory Exam: NORMAL BREATHING PATTERN - Cardiovascular Exam Cardiovascular Exam: +S1, +S2 - GI/Abdominal Exam GI & Abdominal Exam: Normal Bowel Sounds Assessment and Plan (1) Uterine cancer Assessment & Plan: brain mets evaluated by rad onc; possible radiotherapy if clinically improved Status: Acute (2) Anemia Assessment & Plan: chronic disease Status: Acute
--- NOTE | 2017-08-09 13:44 | CP.PCM.PN ---
Subjective - Date & Time of Evaluation Date of Evaluation: 08/09/17 Time of Evaluation: 13:30 - Subjective Subjective: Lethargic Objective - Vital Signs/Intake and Output Vital Signs (last 24 hours): Temp Pulse Resp BP Pulse Ox 98.3 F 108 H 25 H 157/73 H 95 08/09/17 08:00 08/09/17 12:00 08/09/17 08:01 08/09/17 08:02 08/09/17 07:23 Intake and Output: 08/09/17 08/09/17 06:59 18:59 Intake Total 900 Output Total 850 Balance 50 - Medications Medications: Current Medications Acetaminophen (Tylenol 650mg/20.3ml Solution Ud) 650 mg PO Q6H PRN PRN Reason: Headache Last Admin: 08/09/17 01:18 Dose: 650 mg Artificial Tears (Artificial Tears Opht Oint) 0 gm OU BID [facility] Last Admin: 08/09/17 09:46 Dose: 1 applic Levetiracetam (Keppra 500mg Ivpb) 500 mg in 100 mls @ 460 mls/hr IVPB Q12 [facility] Last Admin: 08/09/17 09:47 Dose: 460 mls/hr Sodium Chloride (Hypertonic Saline 3%) 500 mls @ 50 mls/hr IV .Q10H [facility] Last Admin: 08/03/17 18:38 Dose: Not Given Insulin Human Lispro (Humalog High) 0 units SC Q4H [facility] PRN Reason: Protocol Last Admin: 08/09/17 12:00 Dose: 7 units Nifedipine (Procardia) 10 mg PO Q8 [facility] Last Admin: 08/09/17 06:01 Dose: 10 mg Nystatin/Triamcinolone Acetonide (Nystatin/Triamcinolone Cream) 1 ea TOP BID PRN PRN Reason: Excoriation Last Admin: 08/09/17 09:48 Dose: 1 applic Pantoprazole Sodium (Protonix Inj) 40 mg IVP DAILY [facility] Last Admin: 08/09/17 09:47 Dose: 40 mg - Labs Labs: 08/09/17 09:52 08/09/17 09:52 PT 10.5 Seconds (9.9-11.8) 08/01/17 08:20 INR 0.97 (0.93-1.08) 08/01/17 08:20 APTT 27.3 Seconds (23.7-30.8) 08/01/17 08:20 - Eye Exam Eye Exam: Normal appearance - ENT Exam ENT Exam: Mucous Membranes Dry - Respiratory Exam Respiratory Exam: NORMAL BREATHING PATTERN - Cardiovascular Exam Cardiovascular Exam: +S1, +S2 - GI/Abdominal Exam GI & Abdominal Exam: Normal Bowel Sounds Assessment and Plan (1) Uterine cancer Assessment & Plan: brain mets rad onc evaluated; possible radiotherapy when clinically improved Status: Acute (2) Anemia Assessment & Plan: chronic disease Status: Acute
--- NOTE | 2017-08-09 13:48 | CP.PCM.PN ---
Subjective - Date & Time of Evaluation Date of Evaluation: 08/09/17 Time of Evaluation: 12:00 - Subjective Subjective: Infectious Disease Follow Up August 09, 2017 73 yo female presented with fall and altered mental status. She was found at home on floor by family who heard her fall. The patient was brought into the ER and found to be in uncontrolled hypertension and requiring intubation on arrival in the ER. The patient was found to hae a 4.4 cm left occipital intracranial hemorrhage with intraventricular extension. Patient is recovering but still having episodes of low grade fevers. Patient herself is not making any new complaints. She still has residual right sided weakness. Afebrile in the past 48 hours. Repeat cultures sent. Cannot rule out central fever. Cultures negative to date from sets taken on 07/28/2017 and 07/29/2017. She was extubated 08/04/2017. Patient opens her eyes and can follow an occasional command such as squeezing hand. Noted family has rescinded DNR/DNI. Noted Radiation Oncology considering palliative radiation if the patient shows some reasonable improvement during this hospitalization. Blood cultures with coagulase negative staph which is most likely contamination. Patient can follow some commands. No new issues. Objective - Vital Signs/Intake and Output Vital Signs (last 24 hours): Temp Pulse Resp BP Pulse Ox 98.3 F 108 H 25 H 157/73 H 95 08/09/17 08:00 08/09/17 12:00 08/09/17 08:01 08/09/17 08:02 08/09/17 07:23 Intake and Output: 08/09/17 08/09/17 06:59 18:59 Intake Total 900 Output Total 850 Balance 50 - Medications Medications: Current Medications Acetaminophen (Tylenol 650mg/20.3ml Solution Ud) 650 mg PO Q6H PRN PRN Reason: Headache Last Admin: 08/09/17 01:18 Dose: 650 mg Artificial Tears (Artificial Tears Opht Oint) 0 gm OU BID [facility] Last Admin: 08/09/17 09:46 Dose: 1 applic Levetiracetam (Keppra 500mg Ivpb) 500 mg in 100 mls @ 460 mls/hr IVPB Q12 [facility] Last Admin: 08/09/17 09:47 Dose: 460 mls/hr Sodium Chloride (Hypertonic Saline 3%) 500 mls @ 50 mls/hr IV .Q10H [facility] Last Admin: 08/03/17 18:38 Dose: Not Given Insulin Human Lispro (Humalog High) 0 units SC Q4H [facility] PRN Reason: Protocol Last Admin: 08/09/17 12:00 Dose: 7 units Nifedipine (Procardia) 10 mg PO Q8 [facility] Last Admin: 08/09/17 06:01 Dose: 10 mg Nystatin/Triamcinolone Acetonide (Nystatin/Triamcinolone Cream) 1 ea TOP BID PRN PRN Reason: Excoriation Last Admin: 08/09/17 09:48 Dose: 1 applic Pantoprazole Sodium (Protonix Inj) 40 mg IVP DAILY [facility] Last Admin: 08/09/17 09:47 Dose: 40 mg - Labs Labs: 08/09/17 09:52 08/09/17 09:52 PT 10.5 Seconds (9.9-11.8) 08/01/17 08:20 INR 0.97 (0.93-1.08) 08/01/17 08:20 APTT 27.3 Seconds (23.7-30.8) 08/01/17 08:20 - Constitutional Appears: Non-toxic, No Acute Distress, Chronically Ill - Head Exam Head Exam: ATRAUMATIC, NORMOCEPHALIC - Eye Exam Eye Exam: EOMI, PERRL Pupil Exam: NORMAL ACCOMODATION, PERRL - ENT Exam ENT Exam: Mucous Membranes Moist, Normal External Ear Exam, TM's Normal Bilaterally - Neck Exam Neck Exam: Full ROM, Normal Inspection - Respiratory Exam Respiratory Exam: Clear to Ausculation Bilateral, NORMAL BREATHING PATTERN. absent: Rales, Rhonchi, Wheezes - Cardiovascular Exam Cardiovascular Exam: REGULAR RHYTHM, RRR, +S1, +S2 - GI/Abdominal Exam GI & Abdominal Exam: Soft, Normal Bowel Sounds. absent: Distended, Tenderness - Extremities Exam Extremities Exam: Joint Swelling, Pedal Edema - Neurological Exam Neurological Exam: Alert, Awake Additional comments: limited understanding, very limited speech, left neglect - Psychiatric Exam Psychiatric exam: Normal Affect, Normal Mood - Skin Skin Exam: Intact, Normal Color Assessment and Plan - Assessment and Plan (Free Text) Assessment: 73 yo female with low grade fevers of up to 100.4 F after suffering from a 4.4cm left occipital intracranial hemorrhage with intraventricular extension. The patient initially had fevers up to 101.7 F. Clinically, the patient has been improving. Supportive care. She was intubated on admission. She was extubated on 07/25/2017. She speaks dutch mostly. The family states that the patient is acting and speaking appropriately other than the slurring of speech due to her right sided residual weakness. Alfredo cultures sent. There was a mild initial leukocytosis on admission but this has slowly improved. Fever trend has shown improvement. The cultures done to date have been negative so far. No consolidation seen on Chest X-ray. Patient answering question during interview and examination. Supportive care. Currently on Unasyn for antibiotic coverage. Noted C. Diff and repeat urine culture sent. No adequate sample for C. diff testing. Would obtain urinalysis. Would continue Unasyn for now. The current temperature is more likely secondary to the recent intracranial hemorrhage. Leukocytosis of 10.2 today but with a normal differential. Multiple culture sets performed to date are negative. Afebrile for the past 48 hours now. Cultures negative to date at greater than 48 hours. Cannot rule out central fever which is the most likely scenario. It appears as the hemorrhage improves the fevers are improving. The patient still with residual right sided weakness. Last CT done on 07/30/2017 showing interval evolution of known subacute hematoma in left occipital lobe without midline shift or herniation. Resolving intraventricular hemorrhage with residual mild intraventricular hemorrhage. If fevers spike again to over 102, repeat blood and urine cultures. She remains on IV Vancomycin and Aztreonam for antibiotic coverage. She has been afebrile for the past few days. Consider stopping antibiotics at no more than 10 days of administration. On 7 days of antibiotics now... discussed with the medical team, can stopped antibiotics yesterday. Extubated 08/04/2017. Able to follow occasional simple command. Supportive care. Poor manager long term care prognosis given Uterine cancer with brain metastasis and the recent hemorrhagic CVA. No new infectious disease issues. Thank you for allowing me to participate in the care of the patient, we will follow with you.
[2017-08-09] MEDS: Metoprolol 1 mg/ml Inj IVP PRN (20:13)
[2017-08-10] MEDS: Acetaminophen 650mg/20.3ml solution UD PO PRN ×2 (01:35→18:19)
[2017-08-10] MEDS: Insulin Lispro (HUMAlog) HIGH Coverage SC SCH ×5 (02:58→20:15)
--- NOTE | 2017-08-10 04:30 | CP.PCM.PN ---
Subjective - Date & Time of Evaluation Date of Evaluation: 08/10/17 Time of Evaluation: 04:29 - Subjective Subjective: Nasogastric tube was inserted through left nostril. CXR ordered. NGT seems to be in fundus of stomach. Objective - Vital Signs/Intake and Output Vital Signs (last 24 hours): Temp Pulse Resp BP Pulse Ox 98.5 F 80 21 168/88 H 100 08/10/17 00:01 08/10/17 02:00 08/10/17 02:00 08/10/17 00:04 08/10/17 02:00 Intake and Output: 08/09/17 08/10/17 18:59 06:59 Intake Total 1800 50 Output Total 1550 Balance 250 50 - Medications Medications: Current Medications Acetaminophen (Tylenol 650mg/20.3ml Solution Ud) 650 mg PO Q6H PRN PRN Reason: Headache Last Admin: 08/10/17 01:35 Dose: 650 mg Artificial Tears (Artificial Tears Opht Oint) 0 gm OU BID [facility] Last Admin: 08/09/17 17:27 Dose: 1 applic Levetiracetam (Keppra 500mg Ivpb) 500 mg in 100 mls @ 460 mls/hr IVPB Q12 [facility] Last Admin: 08/09/17 22:23 Dose: 460 mls/hr Sodium Chloride (Hypertonic Saline 3%) 500 mls @ 50 mls/hr IV .Q10H [facility] Last Admin: 08/03/17 18:38 Dose: Not Given Insulin Human Lispro (Humalog High) 0 units SC Q4H [facility] PRN Reason: Protocol Last Admin: 08/10/17 02:58 Dose: 2 units Metoprolol Tartrate (Lopressor) 5 mg IVP Q6 PRN PRN Reason: Systolic Blood Pressure Last Admin: 08/09/17 20:13 Dose: 5 mg Nifedipine (Procardia) 10 mg PO Q8 [facility] Last Admin: 08/09/17 22:23 Dose: 10 mg Nystatin/Triamcinolone Acetonide (Nystatin/Triamcinolone Cream) 1 ea TOP BID PRN PRN Reason: Excoriation Last Admin: 08/09/17 09:48 Dose: 1 applic Pantoprazole Sodium (Protonix Inj) 40 mg IVP DAILY [facility] Last Admin: 08/09/17 09:47 Dose: 40 mg - Labs Labs: 08/09/17 09:52 08/09/17 09:52 PT 10.5 Seconds (9.9-11.8) 08/01/17 08:20 INR 0.97 (0.93-1.08) 08/01/17 08:20 APTT 27.3 Seconds (23.7-30.8) 08/01/17 08:20
[2017-08-10] MEDS: Metoprolol 1 mg/ml Inj IVP PRN ×2 (05:07→10:23)
[2017-08-10 06:43] LABS: HEMATOCRIT 26.7 % (36.0-48.0); MEAN CELL VOLUME 89.3 fl (80.0-105.0); MEAN CORPUSCULAR HEMOGLOBIN 28.8 pg (25.0-35.0); MEAN CORPUSCULAR HGB CONC 32.2 g/dl (31.0-37.0); MEAN PLATELET VOLUME 10.1 fl (7.0-11.0); RED CELL DISTRIBUTION WIDTH 13.2 % (11.5-14.5)
[2017-08-10 07:08] LABS: ALB/GLOB RATIO 1.2 (1.1-1.8); ALKALINE PHOSPHATASE 91 U/L (38-126); ALT/SGPT 53 U/L (7-56); AST/SGOT 43 U/L (14-36); BILIRUBIN,TOTAL 0.6 mg/dL (0.2-1.3); BLOOD UREA NITROGEN 25 mg/dL (7-21); CALCIUM 9.5 mg/dL (8.4-10.5); CARBON DIOXIDE 35 mmol/L (21-33); CHLORIDE 95 mmol/L (95-110); GFR AFRICAN-AMERICAN > 60; GLUCOSE,RANDOM 228 mg/dL (70-110); POTASSIUM 3.7 mmol/L (3.6-5.0); SODIUM 140 mmol/L (132-148); TOTAL PROTEIN 6.2 g/dL (5.8-8.3)
--- NOTE | 2017-08-10 07:22 | RAD ---
HISTORY: NGT position. COMPARISON: Portable chest 08/04/2017. FINDINGS: LUNGS: Airspace disease seen in the retrocardiac left lower lobe. This represents significant interval increased in history is disease here. None is seen the right. Rare diaphragm remains elevated. PLEURA: Trace of pleural effusion is not excluded. CARDIOVASCULAR: Cardiac silhouette remains prominent but stable. No definite pulmonary vascular derangement. OSSEOUS STRUCTURES: No significant abnormalities. VISUALIZED UPPER ABDOMEN: Nasonex tube appears to terminate at the left upper quadrant abdomen once again. OTHER FINDINGS: None. IMPRESSION: Increased airspace disease left base. Elevated right hemidiaphragm again evident. Trace of pleural effusion not excluded.
[2017-08-10] MEDS: levETIRAcetam 500mg IVPB 500 MG/100 ML BAG IVPB SCH ×2 (09:36→21:31)
[2017-08-10] MEDS: Mineral Oil/Petrolatum Opht Oint(3.5 gm) OU SCH ×2 (09:37→18:31)
--- NOTE | 2017-08-10 18:33 | CP.PCM.PN ---
<Rashaun Berry - Last Filed: 08/10/17 18:30> Subjective - Date & Time of Evaluation Date of Evaluation: 08/10/17 Time of Evaluation: 10:00 - Subjective Subjective: Medicine Progress note. Dr. Nichols Pt seen and examined at bedside. Rocky pulled out her NGT yesterday, now has right wrist soft mitten restraint placed. Replaced NGT overnight. Patient has family at bedside. Responds by waving right hand. Denies any pain. No F/C. No N/ V/D. Urine [place] cath in place with yellow urine output. Objective - Vital Signs/Intake and Output Vital Signs (last 24 hours): Temp Pulse Resp BP Pulse Ox 98.1 F 91 H 18 140/78 96 08/10/17 12:00 08/10/17 15:02 08/10/17 05:36 08/10/17 15:02 08/10/17 05:36 Intake and Output: 08/10/17 08/10/17 06:59 18:59 Intake Total 50 Balance 50 - Medications Medications: Current Medications Acetaminophen (Tylenol 650mg/20.3ml Solution Ud) 650 mg PO Q6H PRN PRN Reason: Headache Last Admin: 08/10/17 01:35 Dose: 650 mg Artificial Tears (Artificial Tears Opht Oint) 0 gm OU BID [facility] Last Admin: 08/10/17 09:37 Dose: 1 applic Levetiracetam (Keppra 500mg Ivpb) 500 mg in 100 mls @ 460 mls/hr IVPB Q12 [facility] Last Admin: 08/10/17 09:36 Dose: 460 mls/hr Sodium Chloride (Hypertonic Saline 3%) 500 mls @ 50 mls/hr IV .Q10H [facility] Last Admin: 08/03/17 18:38 Dose: Not Given Insulin Human Lispro (Humalog High) 0 units SC Q4H [facility] PRN Reason: Protocol Last Admin: 08/10/17 12:04 Dose: 7 units Metoprolol Tartrate (Lopressor) 5 mg IVP Q6 PRN PRN Reason: Systolic Blood Pressure Last Admin: 08/10/17 10:23 Dose: 5 mg Nifedipine (Procardia) 10 mg PO Q8 [facility] Last Admin: 08/10/17 15:02 Dose: 10 mg Nystatin/Triamcinolone Acetonide (Nystatin/Triamcinolone Cream) 1 ea TOP BID PRN PRN Reason: Excoriation Last Admin: 08/09/17 09:48 Dose: 1 applic Pantoprazole Sodium (Protonix Inj) 40 mg IVP DAILY [facility] Last Admin: 08/10/17 09:36 Dose: 40 mg - Labs Labs: 08/10/17 06:00 08/10/17 06:00 PT 10.5 Seconds (9.9-11.8) 08/01/17 08:20 INR 0.97 (0.93-1.08) 08/01/17 08:20 APTT 27.3 Seconds (23.7-30.8) 08/01/17 08:20 - Constitutional Appears: No Acute Distress - Head Exam Additional comments: posterior scalp intact with sahara - ENT Exam ENT Exam: Mucous Membranes Dry Additional comments: NGT in place, glucerna feeds - Neck Exam Neck Exam: Full ROM - Cardiovascular Exam Cardiovascular Exam: Tachycardia, +S1, +S2. absent: JVD - GI/Abdominal Exam GI & Abdominal Exam: Soft. absent: Firm, Guarding, Rigid, Tenderness, Rebound - Exam Additional comments: [place] cath in place. yellow urine output - Extremities Exam Extremities Exam: Pedal Edema. absent: Calf Tenderness - Neurological Exam Neurological Exam: Alert, Awake Additional comments: responds by waving right upper extremity - Skin Skin Exam: Dry, Intact, Normal Color, Warm Assessment and Plan - Assessment and Plan (Free Text) Assessment: 67 y/o F with PMHx of Uterine CA s/p chemo/radiation and s/p total hysterectomy w/ bilateral salpingooopherectomy, DM, HTN, HLD presents with hemorrhagic CVA with midline shift, s/p decompressive craniotomy. Today, exhibiting right hand increased "flapping" movements. 1. Frontoparietal hemorrhagic CVA No further surgical intervention Neurology signed off at this time Maintain tight blood pressure control Keppra for seizure ppx CXR with increased left base airspace disease noted NPO aspiration precautions Continue Tube feeds 2. Repetitive Right hand "flapping" movements consider due to mitten restraints discussed with Neurology, may be due to sequela of neuro disease baclofen 20mg PO HS continue to monitor 3. Uterine CA. S/p neurosurg bx Heme/Onc following Radiation Onc recommends further therapy once stable as outpt 4. Bacteremia previous Blood cultures with possible contaminant ID following Repeat Blood Cxs Abx stopped 5. Hx of DM Accuchecks ISS high dose 6. Hx of HTN maintain tight blood pressure control coverage increased 7. PPx Protonix SCDs Discussed case with Dr. Simone Berry PGY1 <Nik Nichols - Last Filed: 08/11/17 07:49> Objective - Vital Signs/Intake and Output Vital Signs (last 24 hours): Temp Pulse Resp BP Pulse Ox 97.8 F 78 20 147/63 98 08/11/17 07:40 08/11/17 07:40 08/11/17 07:40 08/11/17 07:40 08/11/17 07:40 Intake and Output: 08/11/17 08/11/17 06:59 18:59 Intake Total 700 0 Output Total 750 Balance -50 0 - Medications Medications: Current Medications Acetaminophen (Tylenol 650mg/20.3ml Solution Ud) 650 mg PO Q6H PRN PRN Reason: Headache Last Admin: 08/10/17 18:19 Dose: 650 mg Artificial Tears (Artificial Tears Opht Oint) 0 gm OU BID [facility] Last Admin: 08/10/17 18:31 Dose: 1 applic Baclofen (Lioresal) 20 mg PO HS [facility] Last Admin: 08/10/17 21:33 Dose: 20 mg Levetiracetam (Keppra 500mg Ivpb) 500 mg in 100 mls @ 460 mls/hr IVPB Q12 [facility] Last Admin: 08/10/17 21:31 Dose: 460 mls/hr Sodium Chloride (Hypertonic Saline 3%) 500 mls @ 50 mls/hr IV .Q10H [facility] Last Admin: 08/03/17 18:38 Dose: Not Given Insulin Human Lispro (Humalog High) 0 units SC Q4H [facility] PRN Reason: Protocol Last Admin: 08/11/17 03:15 Dose: Not Given Metoprolol Tartrate (Lopressor) 5 mg IVP Q6 PRN PRN Reason: Systolic Blood Pressure Last Admin: 08/10/17 10:23 Dose: 5 mg Nifedipine (Procardia) 10 mg PO Q8 [facility] Last Admin: 08/11/17 07:01 Dose: 10 mg Nystatin/Triamcinolone Acetonide (Nystatin/Triamcinolone Cream) 1 ea TOP BID PRN PRN Reason: Excoriation Last Admin: 08/09/17 09:48 Dose: 1 applic Pantoprazole Sodium (Protonix Inj) 40 mg IVP DAILY [facility] Last Admin: 08/10/17 09:36 Dose: 40 mg - Labs Labs: 08/10/17 06:00 08/10/17 06:00 PT 10.5 Seconds (9.9-11.8) 08/01/17 08:20 INR 0.97 (0.93-1.08) 08/01/17 08:20 APTT 27.3 Seconds (23.7-30.8) 08/01/17 08:20 Attending/Attestation - Attestation I have personally seen and examined this patient.: Yes I have fully participated in the care of the patient.: Yes I have reviewed all pertinent clinical information, including history, physical exam and plan: Yes Notes (Text): 08/10/17 67 year old female with past medical history of uterine cancer, hypertension, diabetes, dyslipidemia and history of right parietal mass s/p recent craniotomy/ biopsy who presented with altered mental status. She was found to have hemorrhagic CVA with significant midline shift. She was seen by neurology and neurosurgery, no plan for intervention. Continue with keppra and baclofen added as per neurology. Continue with nifedipine and lopressor prn. Continue with physical therapy; currently recommending acute rehab. Pathology report showed metastatic uterine cancer. Hem/Onc and Rad/Onc evaluations were appreciated. Nik Nichols MD Hospitalist.
--- NOTE | 2017-08-10 19:23 | CP.PCM.PN ---
Subjective - Date & Time of Evaluation Date of Evaluation: 08/10/17 Time of Evaluation: 17:30 - Subjective Subjective: Infectious Disease Follow Up August 10, 2017 73 yo female presented with fall and altered mental status. She was found at home on floor by family who heard her fall. The patient was brought into the ER and found to be in uncontrolled hypertension and requiring intubation on arrival in the ER. The patient was found to hae a 4.4 cm left occipital intracranial hemorrhage with intraventricular extension. Patient is recovering but still having episodes of low grade fevers. Patient herself is not making any new complaints. She still has residual right sided weakness. Afebrile in the past 48 hours. Repeat cultures sent. Cannot rule out central fever. Cultures negative to date from sets taken on 07/28/2017 and 07/29/2017. She was extubated 08/04/2017. Patient opens her eyes and can follow an occasional command such as squeezing hand. Noted family has rescinded DNR/DNI. Noted Radiation Oncology considering palliative radiation if the patient shows some reasonable improvement during this hospitalization. Blood cultures with coagulase negative staph which is most likely contamination. Patient can follow some commands. No new issues. Antibiotics completed. Objective - Vital Signs/Intake and Output Vital Signs (last 24 hours): Temp Pulse Resp BP Pulse Ox 98.1 F 91 H 18 140/78 96 08/10/17 12:00 08/10/17 15:02 08/10/17 05:36 08/10/17 15:02 08/10/17 05:36 - Medications Medications: Current Medications Acetaminophen (Tylenol 650mg/20.3ml Solution Ud) 650 mg PO Q6H PRN PRN Reason: Headache Last Admin: 08/10/17 18:19 Dose: 650 mg Artificial Tears (Artificial Tears Opht Oint) 0 gm OU BID [facility] Last Admin: 08/10/17 18:31 Dose: 1 applic Baclofen (Lioresal) 20 mg PO HS [facility] Levetiracetam (Keppra 500mg Ivpb) 500 mg in 100 mls @ 460 mls/hr IVPB Q12 [facility] Last Admin: 08/10/17 09:36 Dose: 460 mls/hr Sodium Chloride (Hypertonic Saline 3%) 500 mls @ 50 mls/hr IV .Q10H [facility] Last Admin: 08/03/17 18:38 Dose: Not Given Insulin Human Lispro (Humalog High) 0 units SC Q4H [facility] PRN Reason: Protocol Last Admin: 08/10/17 18:18 Dose: 7 units Metoprolol Tartrate (Lopressor) 5 mg IVP Q6 PRN PRN Reason: Systolic Blood Pressure Last Admin: 08/10/17 10:23 Dose: 5 mg Nifedipine (Procardia) 10 mg PO Q8 [facility] Last Admin: 08/10/17 15:02 Dose: 10 mg Nystatin/Triamcinolone Acetonide (Nystatin/Triamcinolone Cream) 1 ea TOP BID PRN PRN Reason: Excoriation Last Admin: 08/09/17 09:48 Dose: 1 applic Pantoprazole Sodium (Protonix Inj) 40 mg IVP DAILY [facility] Last Admin: 08/10/17 09:36 Dose: 40 mg - Labs Labs: 08/10/17 06:00 08/10/17 06:00 PT 10.5 Seconds (9.9-11.8) 08/01/17 08:20 INR 0.97 (0.93-1.08) 08/01/17 08:20 APTT 27.3 Seconds (23.7-30.8) 08/01/17 08:20 - Constitutional Appears: Non-toxic, No Acute Distress, Chronically Ill - Head Exam Head Exam: ATRAUMATIC, NORMOCEPHALIC - Eye Exam Eye Exam: EOMI, PERRL Pupil Exam: NORMAL ACCOMODATION, PERRL - ENT Exam ENT Exam: Mucous Membranes Moist, Normal External Ear Exam, TM's Normal Bilaterally - Neck Exam Neck Exam: Full ROM, Normal Inspection - Respiratory Exam Respiratory Exam: Clear to Ausculation Bilateral, NORMAL BREATHING PATTERN. absent: Rales, Rhonchi, Wheezes - Cardiovascular Exam Cardiovascular Exam: REGULAR RHYTHM, RRR, +S1, +S2 - GI/Abdominal Exam GI & Abdominal Exam: Soft, Normal Bowel Sounds. absent: Distended, Tenderness - Extremities Exam Extremities Exam: Joint Swelling, Pedal Edema - Neurological Exam Neurological Exam: Alert, Awake Additional comments: limited understanding, very limited speech, left neglect - Psychiatric Exam Psychiatric exam: Normal Affect, Normal Mood - Skin Skin Exam: Intact, Normal Color Assessment and Plan - Assessment and Plan (Free Text) Assessment: 73 yo female with low grade fevers of up to 100.4 F after suffering from a 4.4cm left occipital intracranial hemorrhage with intraventricular extension. The patient initially had fevers up to 101.7 F. Clinically, the patient has been improving. Supportive care. She was intubated on admission. She was extubated on 07/25/2017. She speaks lao mostly. The family states that the patient is acting and speaking appropriately other than the slurring of speech due to her right sided residual weakness. Alfredo cultures sent. There was a mild initial leukocytosis on admission but this has slowly improved. Fever trend has shown improvement. The cultures done to date have been negative so far. No consolidation seen on Chest X-ray. Patient answering question during interview and examination. Supportive care. Currently on Unasyn for antibiotic coverage. Noted C. Diff and repeat urine culture sent. No adequate sample for C. diff testing. Would obtain urinalysis. Would continue Unasyn for now. The current temperature is more likely secondary to the recent intracranial hemorrhage. Leukocytosis of 10.2 today but with a normal differential. Multiple culture sets performed to date are negative. Afebrile for the past 48 hours now. Cultures negative to date at greater than 48 hours. Cannot rule out central fever which is the most likely scenario. It appears as the hemorrhage improves the fevers are improving. The patient still with residual right sided weakness. Last CT done on 07/30/2017 showing interval evolution of known subacute hematoma in left occipital lobe without midline shift or herniation. Resolving intraventricular hemorrhage with residual mild intraventricular hemorrhage. Antibiotics completed. Extubated 08/04/2017. Able to follow occasional simple command. Supportive care. Poor terminal system operator prognosis given Uterine cancer with brain metastasis and the recent hemorrhagic CVA. No new infectious disease issues. Thank you for allowing me to participate in the care of the patient, we will follow with you.
[2017-08-11] MEDS: Insulin Lispro (HUMAlog) HIGH Coverage SC SCH ×6 (03:15→22:10)
[2017-08-11] MEDS: Mineral Oil/Petrolatum Opht Oint(3.5 gm) OU SCH ×2 (10:01→17:02)
[2017-08-11 10:31] LABS: HEMATOCRIT 26.6 % (36.0-48.0); MEAN CELL VOLUME 89.9 fl (80.0-105.0); MEAN CORPUSCULAR HEMOGLOBIN 29.7 pg (25.0-35.0); MEAN CORPUSCULAR HGB CONC 33.1 g/dl (31.0-37.0); MEAN PLATELET VOLUME 10.7 fl (7.0-11.0); RED CELL DISTRIBUTION WIDTH 13.6 % (11.5-14.5); WHITE BLOOD COUNT 9.5 10^3/ul (4.5-11.0)
[2017-08-11 10:41] LABS: ALB/GLOB RATIO 1.4 (1.1-1.8); ALKALINE PHOSPHATASE 81 U/L (38-126); ALT/SGPT 55 U/L (7-56); AST/SGOT 38 U/L (14-36); BILIRUBIN,TOTAL 0.7 mg/dL (0.2-1.3); BLOOD UREA NITROGEN 23 mg/dL (7-21); CALCIUM 9.4 mg/dL (8.4-10.5); CARBON DIOXIDE 30 mmol/L (21-33); CHLORIDE 97 mmol/L (98-107); GFR AFRICAN-AMERICAN > 60; GLUCOSE,RANDOM 240 mg/dL (70-110); SODIUM 136 mmol/L (132-148)
[2017-08-11] MEDS: Acetaminophen 650mg/20.3ml solution UD PO PRN ×2 (13:19→19:20)
[2017-08-11] MEDS: levETIRAcetam 500mg IVPB 500 MG/100 ML BAG IVPB SCH ×2 (13:23→22:05)
--- NOTE | 2017-08-11 15:42 | CP.PCM.PN ---
Subjective - Date & Time of Evaluation Date of Evaluation: 08/11/17 Time of Evaluation: 13:15 - Subjective Subjective: Infectious Disease Follow Up August 11, 2017 73 yo female presented with fall and altered mental status. She was found at home on floor by family who heard her fall. The patient was brought into the ER and found to be in uncontrolled hypertension and requiring intubation on arrival in the ER. The patient was found to hae a 4.4 cm left occipital intracranial hemorrhage with intraventricular extension. Patient is recovering but still having episodes of low grade fevers. Patient herself is not making any new complaints. She still has residual right sided weakness. Afebrile in the past 48 hours. Repeat cultures sent. Cannot rule out central fever. Cultures negative to date from sets taken on 07/28/2017 and 07/29/2017. She was extubated 08/04/2017. Patient opens her eyes and can follow an occasional command such as squeezing hand. Noted family has rescinded DNR/DNI. Noted Radiation Oncology considering palliative radiation if the patient shows some reasonable improvement during this hospitalization. Blood cultures with coagulase negative staph which is most likely contamination. Patient can occasional commands. No new issues. Antibiotics completed. Noted that she failed swallow studies and required NG tube to be placed again. Objective - Vital Signs/Intake and Output Vital Signs (last 24 hours): Temp Pulse Resp BP Pulse Ox 97.8 F 78 20 147/63 98 08/11/17 07:40 08/11/17 13:24 08/11/17 07:40 08/11/17 13:24 08/11/17 07:40 Intake and Output: 08/11/17 08/11/17 06:59 18:59 Intake Total 700 0 Output Total 750 Balance -50 0 - Medications Medications: Current Medications Acetaminophen (Tylenol 650mg/20.3ml Solution Ud) 650 mg PO Q6H PRN PRN Reason: Headache Last Admin: 08/11/17 13:19 Dose: 650 mg Artificial Tears (Artificial Tears Opht Oint) 0 gm OU BID [facility] Last Admin: 08/10/17 18:31 Dose: 1 applic Baclofen (Lioresal) 20 mg PO HS [facility] Last Admin: 08/10/17 21:33 Dose: 20 mg Levetiracetam (Keppra 500mg Ivpb) 500 mg in 100 mls @ 460 mls/hr IVPB Q12 [facility] Last Admin: 08/11/17 13:23 Dose: 460 mls/hr Sodium Chloride (Hypertonic Saline 3%) 500 mls @ 50 mls/hr IV .Q10H [facility] Last Admin: 08/03/17 18:38 Dose: Not Given Insulin Human Lispro (Humalog High) 0 units SC Q4H [facility] PRN Reason: Protocol Last Admin: 08/11/17 09:12 Dose: 10 units Metoprolol Tartrate (Lopressor) 5 mg IVP Q6 PRN PRN Reason: Systolic Blood Pressure Last Admin: 08/10/17 10:23 Dose: 5 mg Nifedipine (Procardia) 10 mg PO Q8 [facility] Last Admin: 08/11/17 13:24 Dose: 10 mg Nystatin/Triamcinolone Acetonide (Nystatin/Triamcinolone Cream) 1 ea TOP BID PRN PRN Reason: Excoriation Last Admin: 08/09/17 09:48 Dose: 1 applic Pantoprazole Sodium (Protonix Inj) 40 mg IVP DAILY [facility] Last Admin: 08/11/17 13:19 Dose: 40 mg - Labs Labs: 08/11/17 10:24 08/11/17 10:24 PT 10.5 Seconds (9.9-11.8) 08/01/17 08:20 INR 0.97 (0.93-1.08) 08/01/17 08:20 APTT 27.3 Seconds (23.7-30.8) 08/01/17 08:20 - Constitutional Appears: Non-toxic, No Acute Distress, Chronically Ill - Head Exam Head Exam: ATRAUMATIC, NORMOCEPHALIC - Eye Exam Eye Exam: EOMI, PERRL Pupil Exam: NORMAL ACCOMODATION, PERRL - ENT Exam ENT Exam: Mucous Membranes Moist, Normal External Ear Exam, TM's Normal Bilaterally - Neck Exam Neck Exam: Full ROM, Normal Inspection - Respiratory Exam Respiratory Exam: Clear to Ausculation Bilateral, NORMAL BREATHING PATTERN. absent: Rales, Rhonchi, Wheezes - Cardiovascular Exam Cardiovascular Exam: REGULAR RHYTHM, RRR, +S1, +S2 - GI/Abdominal Exam GI & Abdominal Exam: Soft, Normal Bowel Sounds. absent: Distended, Tenderness - Extremities Exam Extremities Exam: Joint Swelling, Pedal Edema - Neurological Exam Neurological Exam: Alert, Awake Additional comments: limited understanding, very limited speech, left neglect - Psychiatric Exam Psychiatric exam: Normal Affect, Normal Mood - Skin Skin Exam: Intact, Normal Color Assessment and Plan - Assessment and Plan (Free Text) Assessment: 73 yo female with low grade fevers of up to 100.4 F after suffering from a 4.4cm left occipital intracranial hemorrhage with intraventricular extension. The patient initially had fevers up to 101.7 F. Clinically, the patient has been improving. Supportive care. She was intubated on admission. She was extubated on 07/25/2017. She speaks [place] mostly. The family states that the patient is acting and speaking appropriately other than the slurring of speech due to her right sided residual weakness. Alfredo cultures sent. There was a mild initial leukocytosis on admission but this has slowly improved. Fever trend has shown improvement. The cultures done to date have been negative so far. No consolidation seen on Chest X-ray. Patient answering question during interview and examination. Supportive care. Currently on Unasyn for antibiotic coverage. Noted C. Diff and repeat urine culture sent. No adequate sample for C. diff testing. Would obtain urinalysis. Would continue Unasyn for now. The current temperature is more likely secondary to the recent intracranial hemorrhage. Leukocytosis of 10.2 today but with a normal differential. Multiple culture sets performed to date are negative. Afebrile for the past 48 hours now. Cultures negative to date at greater than 48 hours. Cannot rule out central fever which is the most likely scenario. It appears as the hemorrhage improves the fevers are improving. The patient still with residual right sided weakness. Last CT done on 07/30/2017 showing interval evolution of known subacute hematoma in left occipital lobe without midline shift or herniation. Resolving intraventricular hemorrhage with residual mild intraventricular hemorrhage. Antibiotics completed. Extubated 08/04/2017. Able to follow occasional simple command. Supportive care. Poor [place] prognosis given Uterine cancer with brain metastasis and the recent hemorrhagic CVA. No new infectious disease issues. Difficulty with feeds. NG tube had to be replaced today and patient made NPO before NG tube placement. Thank you for allowing me to participate in the care of the patient, we will follow with you.
--- NOTE | 2017-08-11 16:18 | CP.PCM.PN ---
<Rashaun Berry - Last Filed: 08/11/17 16:12> Subjective - Date & Time of Evaluation Date of Evaluation: 08/11/17 Time of Evaluation: 10:10 - Subjective Subjective: Medicine Progress note. Dr. Nichols Pt seen and examined at bedside. No acute events overnight. Pt asleep, easily arousable. Responds by waving right hand. Denies any pain or complaints. No F/ C. Tolerating tube feeds. No new complaints. Objective - Vital Signs/Intake and Output Vital Signs (last 24 hours): Temp Pulse Resp BP Pulse Ox 97.8 F 78 20 147/63 98 08/11/17 07:40 08/11/17 13:24 08/11/17 07:40 08/11/17 13:24 08/11/17 07:40 Intake and Output: 08/11/17 08/11/17 06:59 18:59 Intake Total 700 0 Output Total 750 Balance -50 0 - Medications Medications: Current Medications Acetaminophen (Tylenol 650mg/20.3ml Solution Ud) 650 mg PO Q6H PRN PRN Reason: Headache Last Admin: 08/11/17 13:19 Dose: 650 mg Artificial Tears (Artificial Tears Opht Oint) 0 gm OU BID [facility] Last Admin: 08/10/17 18:31 Dose: 1 applic Baclofen (Lioresal) 20 mg PO HS [facility] Last Admin: 08/10/17 21:33 Dose: 20 mg Levetiracetam (Keppra 500mg Ivpb) 500 mg in 100 mls @ 460 mls/hr IVPB Q12 [facility] Last Admin: 08/11/17 13:23 Dose: 460 mls/hr Sodium Chloride (Hypertonic Saline 3%) 500 mls @ 50 mls/hr IV .Q10H [facility] Last Admin: 08/03/17 18:38 Dose: Not Given Insulin Human Lispro (Humalog High) 0 units SC Q4H [facility] PRN Reason: Protocol Last Admin: 08/11/17 09:12 Dose: 10 units Metoprolol Tartrate (Lopressor) 5 mg IVP Q6 PRN PRN Reason: Systolic Blood Pressure Last Admin: 08/10/17 10:23 Dose: 5 mg Nifedipine (Procardia) 10 mg PO Q8 [facility] Last Admin: 08/11/17 13:24 Dose: 10 mg Nystatin/Triamcinolone Acetonide (Nystatin/Triamcinolone Cream) 1 ea TOP BID PRN PRN Reason: Excoriation Last Admin: 08/09/17 09:48 Dose: 1 applic Pantoprazole Sodium (Protonix Inj) 40 mg IVP DAILY [facility] Last Admin: 08/11/17 13:19 Dose: 40 mg - Labs Labs: 08/11/17 10:24 08/11/17 10:24 PT 10.5 Seconds (9.9-11.8) 08/01/17 08:20 INR 0.97 (0.93-1.08) 08/01/17 08:20 APTT 27.3 Seconds (23.7-30.8) 08/01/17 08:20 - Constitutional Appears: Non-toxic, No Acute Distress - Head Exam Additional comments: posterior scalp intact with sahara - Eye Exam Eye Exam: EOMI - ENT Exam ENT Exam: Mucous Membranes Moist - Neck Exam Neck Exam: Full ROM - Respiratory Exam Respiratory Exam: Clear to Ausculation Bilateral, NORMAL BREATHING PATTERN. absent: Decreased Breath Sounds, Rales, Rhonchi, Wheezes - Cardiovascular Exam Cardiovascular Exam: RRR, +S1, +S2. absent: JVD - GI/Abdominal Exam GI & Abdominal Exam: Soft. absent: Distended, Firm, Guarding, Rigid, Tenderness - Extremities Exam Additional comments: moves right upper extremity spontaneously. - Neurological Exam Neurological Exam: Alert Additional comments: easily arousable. No motor function observed left side or lower extremities - Psychiatric Exam Psychiatric exam: Normal Affect, Normal Mood - Skin Skin Exam: Dry, Intact, Normal Color, Warm Assessment and Plan - Assessment and Plan (Free Text) Assessment: 67 y/o F with PMHx of Uterine CA s/p chemo/radiation and s/p total hysterectomy w/ bilateral salpingooopherectomy, DM, HTN, HLD presents with hemorrhagic CVA with midline shift, s/p decompressive craniotomy on 07/25/17. Right upper extremity "flapping" not observed when patient asleep 1. Frontoparietal hemorrhagic CVA No further surgical intervention Nursing staff to discuss case with neurosurg for scalp staple/suture recs. ( When cleared to remove) Neurology signed off at this time Maintain tight blood pressure control Keppra for seizure ppx CXR with increased left base airspace disease noted NPO aspiration precautions Continue Tube feeds Speech Lang recs appreciated: continue tube feeds as PO trials failing currently 2. Repetitive Right hand "flapping" movements continue current treatment discussed with Neurology, may be due to sequela of neuro disease baclofen 20mg PO HS Patient somnolent but easily arousable. Will discuss with nursing staff if we need to titrate the dose down. continue to monitor 3. Uterine CA. S/p neurosurg bx Heme/Onc following Radiation Onc recommends further therapy once stable as outpt 4. Bacteremia previous Blood cultures with possible contaminant ID following Repeat Blood Cxs with no growth @5 days Abx stopped 5. Hx of DM Accuchecks ISS high dose 6. Hx of HTN maintain tight blood pressure control coverage increased 7. PPx Protonix SCDs Discussed case with Dr. Simone Berry PGY1 <Nik Nichols - Last Filed: 08/11/17 17:31> Objective - Vital Signs/Intake and Output Vital Signs (last 24 hours): Temp Pulse Resp BP Pulse Ox 97.8 F 78 20 147/63 98 08/11/17 07:40 08/11/17 13:24 08/11/17 07:40 08/11/17 13:24 08/11/17 07:40 Intake and Output: 08/11/17 08/11/17 06:59 18:59 Intake Total 700 0 Output Total 750 Balance -50 0 - Medications Medications: Current Medications Acetaminophen (Tylenol 650mg/20.3ml Solution Ud) 650 mg PO Q6H PRN PRN Reason: Headache Last Admin: 08/11/17 13:19 Dose: 650 mg Artificial Tears (Artificial Tears Opht Oint) 0 gm OU BID [facility] Last Admin: 08/11/17 17:02 Dose: 1 applic Baclofen (Lioresal) 20 mg PO HS [facility] Last Admin: 08/10/17 21:33 Dose: 20 mg Levetiracetam (Keppra 500mg Ivpb) 500 mg in 100 mls @ 460 mls/hr IVPB Q12 [facility] Last Admin: 08/11/17 13:23 Dose: 460 mls/hr Sodium Chloride (Hypertonic Saline 3%) 500 mls @ 50 mls/hr IV .Q10H [facility] Last Admin: 08/03/17 18:38 Dose: Not Given Insulin Human Lispro (Humalog High) 0 units SC Q4H [facility] PRN Reason: Protocol Last Admin: 08/11/17 17:05 Dose: 4 units Metoprolol Tartrate (Lopressor) 5 mg IVP Q6 PRN PRN Reason: Systolic Blood Pressure Last Admin: 08/10/17 10:23 Dose: 5 mg Nifedipine (Procardia) 10 mg PO Q8 [facility] Last Admin: 08/11/17 13:24 Dose: 10 mg Nystatin/Triamcinolone Acetonide (Nystatin/Triamcinolone Cream) 1 ea TOP BID PRN PRN Reason: Excoriation Last Admin: 08/09/17 09:48 Dose: 1 applic Pantoprazole Sodium (Protonix Inj) 40 mg IVP DAILY [facility] Last Admin: 08/11/17 13:19 Dose: 40 mg - Labs Labs: 08/11/17 10:24 08/11/17 10:24 PT 10.5 Seconds (9.9-11.8) 08/01/17 08:20 INR 0.97 (0.93-1.08) 08/01/17 08:20 APTT 27.3 Seconds (23.7-30.8) 08/01/17 08:20 Attending/Attestation - Attestation I have personally seen and examined this patient.: Yes I have fully participated in the care of the patient.: Yes I have reviewed all pertinent clinical information, including history, physical exam and plan: Yes Notes (Text): 08/11/17 17:29 67 year old female with past medical history of uterine cancer, hypertension, diabetes, dyslipidemia and history of right parietal mass s/p recent craniotomy/ biopsy who presented with altered mental status. She was found to have hemorrhagic CVA with significant midline shift. She was seen by neurology and neurosurgery, no plan for intervention. Continue with keppra and baclofen as per neurology. Will discuss with NS when sutures/sahara need to be removed. Continue with nifedipine and lopressor prn. Continue with physical therapy; currently recommending acute rehab. She is on insulin ss for diabetes. Will add levemir. Pathology report showed metastatic uterine cancer. Hem/Onc and Rad/Onc evaluations were appreciated. Nik Nichols MD Hospitalist.
[2017-08-11] MEDS ORDERED: Insulin Detemir 100 units/ml Vial (Levemir) SC SCH (22:00)
[2017-08-12] MEDS: Insulin Lispro (HUMAlog) HIGH Coverage SC SCH ×5 (03:58→21:59)
[2017-08-12 07:43] LABS: HEMATOCRIT 27.1 % (36.0-48.0); MEAN CELL VOLUME 90.3 fl (80.0-105.0); MEAN CORPUSCULAR HEMOGLOBIN 29.3 pg (25.0-35.0); MEAN CORPUSCULAR HGB CONC 32.5 g/dl (31.0-37.0); MEAN PLATELET VOLUME 10.2 fl (7.0-11.0); RED CELL DISTRIBUTION WIDTH 13.6 % (11.5-14.5); WHITE BLOOD COUNT 6.8 10^3/ul (4.5-11.0)
--- NOTE | 2017-08-12 08:47 | CP.PCM.PN ---
<KristiRashaun villanueva - Last Filed: 08/12/17 18:22> Subjective - Date & Time of Evaluation Date of Evaluation: 08/12/17 Time of Evaluation: 09:00 - Subjective Subjective: Medicine progress note. Dr. Nichols Pt seen and examined at bedside. No acute events overnight. Patient with BiPAP overnight as ordered. Tolerating well. Responds with right upper extremity. Denies any pain. No new complaints. Objective - Vital Signs/Intake and Output Vital Signs (last 24 hours): Temp Pulse Resp BP Pulse Ox 98.2 F 102 H 20 168/88 H 98 08/12/17 06:00 08/12/17 06:58 08/12/17 06:00 08/12/17 06:58 08/12/17 06:00 Intake and Output: 08/12/17 08/12/17 06:59 18:59 Intake Total 0 Balance 0 - Medications Medications: Current Medications Acetaminophen (Tylenol 650mg/20.3ml Solution Ud) 650 mg PO Q6H PRN PRN Reason: Headache Last Admin: 08/11/17 19:20 Dose: 650 mg Artificial Tears (Artificial Tears Opht Oint) 0 gm OU BID [facility] Last Admin: 08/11/17 17:02 Dose: 1 applic Baclofen (Lioresal) 20 mg PO HS [facility] Last Admin: 08/11/17 22:06 Dose: 20 mg Levetiracetam (Keppra 500mg Ivpb) 500 mg in 100 mls @ 460 mls/hr IVPB Q12 [facility] Last Admin: 08/11/17 22:05 Dose: 460 mls/hr Sodium Chloride (Hypertonic Saline 3%) 500 mls @ 50 mls/hr IV .Q10H [facility] Last Admin: 08/03/17 18:38 Dose: Not Given Insulin Detemir (Levemir) 5 unit SC HS [facility] Last Admin: 08/11/17 22:05 Dose: 5 unit Insulin Human Lispro (Humalog High) 0 units SC Q4H [facility] PRN Reason: Protocol Last Admin: 08/12/17 08:39 Dose: 7 units Metoprolol Tartrate (Lopressor) 5 mg IVP Q6 PRN PRN Reason: Systolic Blood Pressure Last Admin: 08/10/17 10:23 Dose: 5 mg Nifedipine (Procardia) 10 mg PO Q8 [facility] Last Admin: 08/12/17 06:58 Dose: 10 mg Nystatin/Triamcinolone Acetonide (Nystatin/Triamcinolone Cream) 1 ea TOP BID PRN PRN Reason: Excoriation Last Admin: 08/09/17 09:48 Dose: 1 applic Pantoprazole Sodium (Protonix Inj) 40 mg IVP DAILY [facility] Last Admin: 08/11/17 13:19 Dose: 40 mg - Labs Labs: 08/12/17 07:00 08/11/17 10:24 PT 10.5 Seconds (9.9-11.8) 08/01/17 08:20 INR 0.97 (0.93-1.08) 08/01/17 08:20 APTT 27.3 Seconds (23.7-30.8) 08/01/17 08:20 - Constitutional Appears: No Acute Distress - Head Exam Additional comments: Right posterior scalp intact with sahara, skin well approximated - Eye Exam Eye Exam: EOMI - ENT Exam ENT Exam: Mucous Membranes Moist - Respiratory Exam Respiratory Exam: Clear to Ausculation Bilateral, NORMAL BREATHING PATTERN. absent: Rhonchi, Wheezes, Respiratory Distress - Cardiovascular Exam Cardiovascular Exam: RRR, +S1, +S2. absent: JVD - GI/Abdominal Exam GI & Abdominal Exam: Soft. absent: Firm, Guarding, Rigid, Tenderness - Extremities Exam Extremities Exam: Normal Inspection. absent: Calf Tenderness Additional comments: Right upper extremity movement, follows simple commands. Flaccid left extremity and lower extremities - Neurological Exam Neurological Exam: Alert, Awake - Psychiatric Exam Psychiatric exam: Normal Affect, Normal Mood - Skin Skin Exam: Dry, Intact, Normal Color, Warm Assessment and Plan - Assessment and Plan (Free Text) Assessment: 67 y/o F with PMHx of Uterine CA s/p chemo/radiation and s/p total hysterectomy w/ bilateral salpingooopherectomy, DM, HTN, HLD presents with hemorrhagic CVA with midline shift, s/p decompressive craniotomy on 07/25/17. Right upper extremity "flapping" resolved from few days prior. 1. Frontoparietal hemorrhagic CVA No further surgical intervention Nursing staff to discuss case with neurosurg for scalp staple/suture recs. ( When cleared to remove) Awaiting recs Neurology signed off at this time Maintain tight blood pressure control Keppra for seizure ppx CXR with increased left base airspace disease noted NPO aspiration precautions Continue Tube feeds Speech Lang recs appreciated: continue tube feeds as PO trials failing currently 2. Repetitive Right hand "flapping" movements continue current treatment discussed with Neurology, may be due to sequela of neuro disease baclofen 20mg PO HS continue to monitor 3. Uterine CA. S/p neurosurg bx Heme/Onc following Radiation Onc recommends further therapy once stable as outpt 4. Bacteremia previous Blood cultures with possible contaminant ID following Repeat Blood Cxs with no growth @5 days Abx stopped 5. Hx of DM Accuchecks ISS high dose Started on Levemir 8U SC HS 6. Hx of HTN maintain tight blood pressure control coverage increased 7. PPx Protonix SCDs Discussed case with Dr. Simone Berry PGY1 <Nik Nichols - Last Filed: 08/13/17 07:08> Objective - Vital Signs/Intake and Output Vital Signs (last 24 hours): Temp Pulse Resp BP Pulse Ox 97.8 F 94 H 20 153/75 H 100 08/12/17 17:46 08/13/17 06:21 08/12/17 17:46 08/13/17 06:21 08/12/17 17:46 Intake and Output: 08/13/17 08/13/17 06:59 18:59 Intake Total 0 Balance 0 - Medications Medications: Current Medications Acetaminophen (Tylenol 650mg/20.3ml Solution Ud) 650 mg PO Q6H PRN PRN Reason: Headache Last Admin: 08/13/17 05:05 Dose: 650 mg Artificial Tears (Artificial Tears Opht Oint) 0 gm OU BID [facility] Last Admin: 08/12/17 17:42 Dose: 1 applic Baclofen (Lioresal) 20 mg PO HS [facility] Last Admin: 08/12/17 21:59 Dose: 20 mg Levetiracetam (Keppra 500mg Ivpb) 500 mg in 100 mls @ 460 mls/hr IVPB Q12 [facility] Last Admin: 08/12/17 21:58 Dose: 460 mls/hr Sodium Chloride (Hypertonic Saline 3%) 500 mls @ 50 mls/hr IV .Q10H [facility] Last Admin: 08/03/17 18:38 Dose: Not Given Insulin Detemir (Levemir) 8 unit SC HS [facility] Last Admin: 08/12/17 21:59 Dose: 8 unit Insulin Human Lispro (Humalog High) 0 units SC Q4H [facility] PRN Reason: Protocol Last Admin: 08/13/17 06:17 Dose: Not Given Metoprolol Tartrate (Lopressor) 5 mg IVP Q6 PRN PRN Reason: Systolic Blood Pressure Last Admin: 08/10/17 10:23 Dose: 5 mg Nifedipine (Procardia) 10 mg PO Q8 [facility] Last Admin: 08/13/17 06:21 Dose: 10 mg Nystatin/Triamcinolone Acetonide (Nystatin/Triamcinolone Cream) 1 ea TOP BID PRN PRN Reason: Excoriation Last Admin: 08/09/17 09:48 Dose: 1 applic Pantoprazole Sodium (Protonix Inj) 40 mg IVP DAILY [facility] Last Admin: 08/12/17 10:45 Dose: 40 mg - Labs Labs: 08/12/17 07:00 08/12/17 07:00 PT 10.5 Seconds (9.9-11.8) 08/01/17 08:20 INR 0.97 (0.93-1.08) 08/01/17 08:20 APTT 27.3 Seconds (23.7-30.8) 08/01/17 08:20 Attending/Attestation - Attestation I have personally seen and examined this patient.: Yes I have fully participated in the care of the patient.: Yes I have reviewed all pertinent clinical information, including history, physical exam and plan: Yes Notes (Text): 08/12/17 67 year old female with past medical history of uterine cancer, hypertension, diabetes, dyslipidemia and history of right parietal mass s/p recent craniotomy/ biopsy who presented with altered mental status. She was found to have hemorrhagic CVA with significant midline shift. She was seen by neurology and neurosurgery, no plan for intervention. Continue with keppra and baclofen as per neurology. Continue with nifedipine and lopressor prn and levemir and insulin ss for diabetes. Continue with physical therapy; currently recommending acute rehab. Will discuss with rifle case repairer / hospital social worker on Monday. Pathology report showed metastatic uterine cancer. Hem/Onc and Rad/Onc evaluations were appreciated. Nik Nichols MD Hospitalist.
[2017-08-12 09:49] LABS: ALB/GLOB RATIO 1.3 (1.1-1.8); ALKALINE PHOSPHATASE 99 U/L (38-126); ALT/SGPT 49 U/L (7-56); AST/SGOT 34 U/L (14-36); BILIRUBIN,TOTAL 0.6 mg/dL (0.2-1.3); BLOOD UREA NITROGEN 20 mg/dL (7-21); CALCIUM 9.5 mg/dL (8.4-10.5); CARBON DIOXIDE 31 mmol/L (21-33); CHLORIDE 97 mmol/L (98-107); GFR AFRICAN-AMERICAN > 60; GLUCOSE,RANDOM 251 mg/dL (70-110); POTASSIUM 3.7 mmol/L (3.6-5.0); SODIUM 138 mmol/L (132-148); TOTAL PROTEIN 6.3 g/dL (5.8-8.3)
[2017-08-12] MEDS: levETIRAcetam 500mg IVPB 500 MG/100 ML BAG IVPB SCH ×2 (10:45→21:58)
[2017-08-12] MEDS: Mineral Oil/Petrolatum Opht Oint(3.5 gm) OU SCH ×2 (10:45→17:42)
[2017-08-12] MEDS: Acetaminophen 650mg/20.3ml solution UD PO PRN (13:05)
--- NOTE | 2017-08-12 17:18 | CP.PCM.PN ---
Subjective - Date & Time of Evaluation Date of Evaluation: 08/12/17 Time of Evaluation: 14:30 - Subjective Subjective: Infectious Disease Follow Up August 12, 2017 73 yo female presented with fall and altered mental status. She was found at home on floor by family who heard her fall. The patient was brought into the ER and found to be in uncontrolled hypertension and requiring intubation on arrival in the ER. The patient was found to hae a 4.4 cm left occipital intracranial hemorrhage with intraventricular extension. Patient is recovering but still having episodes of low grade fevers. Patient herself is not making any new complaints. She still has residual right sided weakness. Afebrile in the past 48 hours. Repeat cultures sent. Cannot rule out central fever. Cultures negative to date from sets taken on 07/28/2017 and 07/29/2017. She was extubated 08/04/2017. Patient opens her eyes and can follow an occasional command such as squeezing hand. Noted family has rescinded DNR/DNI. Noted Radiation Oncology considering palliative radiation if the patient shows some reasonable improvement during this hospitalization. Blood cultures with coagulase negative staph which is most likely contamination. Patient can occasional commands. No new issues. Antibiotics completed. Noted that she failed swallow studies and required NG tube to be placed again. Objective - Vital Signs/Intake and Output Vital Signs (last 24 hours): Temp Pulse Resp BP Pulse Ox 98.2 F 102 H 20 168/88 H 98 08/12/17 06:00 08/12/17 06:58 08/12/17 06:00 08/12/17 06:58 08/12/17 06:00 Intake and Output: 08/12/17 08/12/17 06:59 18:59 Intake Total 0 Balance 0 - Medications Medications: Current Medications Acetaminophen (Tylenol 650mg/20.3ml Solution Ud) 650 mg PO Q6H PRN PRN Reason: Headache Last Admin: 08/12/17 13:05 Dose: 650 mg Artificial Tears (Artificial Tears Opht Oint) 0 gm OU BID [facility] Last Admin: 08/12/17 10:45 Dose: 1 applic Baclofen (Lioresal) 20 mg PO HS [facility] Last Admin: 08/11/17 22:06 Dose: 20 mg Levetiracetam (Keppra 500mg Ivpb) 500 mg in 100 mls @ 460 mls/hr IVPB Q12 [facility] Last Admin: 08/12/17 10:45 Dose: 460 mls/hr Sodium Chloride (Hypertonic Saline 3%) 500 mls @ 50 mls/hr IV .Q10H [facility] Last Admin: 08/03/17 18:38 Dose: Not Given Insulin Detemir (Levemir) 5 unit SC HS [facility] Last Admin: 08/11/17 22:05 Dose: 5 unit Insulin Human Lispro (Humalog High) 0 units SC Q4H [facility] PRN Reason: Protocol Last Admin: 08/12/17 16:57 Dose: Not Given Metoprolol Tartrate (Lopressor) 5 mg IVP Q6 PRN PRN Reason: Systolic Blood Pressure Last Admin: 08/10/17 10:23 Dose: 5 mg Nifedipine (Procardia) 10 mg PO Q8 [facility] Last Admin: 08/12/17 13:48 Dose: 10 mg Nystatin/Triamcinolone Acetonide (Nystatin/Triamcinolone Cream) 1 ea TOP BID PRN PRN Reason: Excoriation Last Admin: 08/09/17 09:48 Dose: 1 applic Pantoprazole Sodium (Protonix Inj) 40 mg IVP DAILY [facility] Last Admin: 08/12/17 10:45 Dose: 40 mg - Labs Labs: 08/12/17 07:00 08/12/17 07:00 PT 10.5 Seconds (9.9-11.8) 08/01/17 08:20 INR 0.97 (0.93-1.08) 08/01/17 08:20 APTT 27.3 Seconds (23.7-30.8) 08/01/17 08:20 - Constitutional Appears: Non-toxic, No Acute Distress, Chronically Ill - Head Exam Head Exam: ATRAUMATIC, NORMOCEPHALIC - Eye Exam Eye Exam: EOMI, PERRL Pupil Exam: NORMAL ACCOMODATION, PERRL - ENT Exam ENT Exam: Mucous Membranes Moist, Normal External Ear Exam, TM's Normal Bilaterally - Neck Exam Neck Exam: Full ROM, Normal Inspection - Respiratory Exam Respiratory Exam: Clear to Ausculation Bilateral, NORMAL BREATHING PATTERN. absent: Rales, Rhonchi, Wheezes - Cardiovascular Exam Cardiovascular Exam: REGULAR RHYTHM, RRR, +S1, +S2 - GI/Abdominal Exam GI & Abdominal Exam: Soft, Normal Bowel Sounds. absent: Distended, Tenderness - Extremities Exam Extremities Exam: Joint Swelling, Pedal Edema - Neurological Exam Neurological Exam: Alert, Awake Additional comments: limited understanding, very limited speech, left neglect - Psychiatric Exam Psychiatric exam: Normal Affect, Normal Mood - Skin Skin Exam: Intact, Normal Color Assessment and Plan - Assessment and Plan (Free Text) Assessment: 73 yo female with low grade fevers of up to 100.4 F after suffering from a 4.4cm left occipital intracranial hemorrhage with intraventricular extension. The patient initially had fevers up to 101.7 F. Clinically, the patient has been improving. Supportive care. She was intubated on admission. She was extubated on 07/25/2017. She speaks danish mostly. The family states that the patient is acting and speaking appropriately other than the slurring of speech due to her right sided residual weakness. Alfredo cultures sent. There was a mild initial leukocytosis on admission but this has slowly improved. Fever trend has shown improvement. The cultures done to date have been negative so far. No consolidation seen on Chest X-ray. Patient answering question during interview and examination. Supportive care. Currently on Unasyn for antibiotic coverage. Noted C. Diff and repeat urine culture sent. No adequate sample for C. diff testing. Would obtain urinalysis. Would continue Unasyn for now. The current temperature is more likely secondary to the recent intracranial hemorrhage. Leukocytosis of 10.2 today but with a normal differential. Multiple culture sets performed to date are negative. Afebrile for the past 48 hours now. Cultures negative to date at greater than 48 hours. Cannot rule out central fever which is the most likely scenario. It appears as the hemorrhage improves the fevers are improving. The patient still with residual right sided weakness. Last CT done on 07/30/2017 showing interval evolution of known subacute hematoma in left occipital lobe without midline shift or herniation. Resolving intraventricular hemorrhage with residual mild intraventricular hemorrhage. Antibiotics completed. Extubated 08/04/2017. Able to follow occasional simple command. Supportive care. Poor shelter prognosis given Uterine cancer with brain metastasis and the recent hemorrhagic CVA. No new infectious disease issues. Difficulty with feeds. NG tube had to be replaced today and patient made NPO before NG tube placement. Thank you for allowing me to participate in the care of the patient, we will follow with you.
[2017-08-12] MEDS: Insulin Detemir 100 units/ml Vial (Levemir) SC SCH (21:59)
[2017-08-13] MEDS: Acetaminophen 650mg/20.3ml solution UD PO PRN ×2 (05:05→15:02)
[2017-08-13] MEDS: Insulin Lispro (HUMAlog) HIGH Coverage SC SCH ×5 (06:17→20:45)
[2017-08-13] MEDS: Mineral Oil/Petrolatum Opht Oint(3.5 gm) OU SCH ×2 (10:30→17:04)
[2017-08-13] MEDS: levETIRAcetam 500mg IVPB 500 MG/100 ML BAG IVPB SCH ×2 (12:20→21:07)
--- NOTE | 2017-08-13 14:21 | CP.PCM.PN ---
<KristiRashaun villanueva - Last Filed: 08/13/17 15:01> Subjective - Date & Time of Evaluation Date of Evaluation: 08/13/17 Time of Evaluation: 09:00 - Subjective Subjective: Medicine Progress note. Dr. Nichols Patient seen and examined at bedside. Patient's mental status a bit better this AM. Responding to questions with few words in ku[place]i. She pulled out her NGT overnight. She nods yes and says she wants "ensalada" (Salad). She does report some headache. No further complaints. Reevaluated the patient this afternoon. Her mental status is again poor. Patient does not follow commands. Does not swallow trial of apple sauce. Objective - Vital Signs/Intake and Output Vital Signs (last 24 hours): Temp Pulse Resp BP Pulse Ox 97.6 F 94 H 20 153/75 H 97 08/13/17 06:00 08/13/17 06:21 08/13/17 06:00 08/13/17 06:21 08/13/17 06:00 Intake and Output: 08/13/17 08/13/17 06:59 18:59 Intake Total 0 900 Balance 0 900 - Medications Medications: Current Medications Acetaminophen (Tylenol 650mg/20.3ml Solution Ud) 650 mg PO Q6H PRN PRN Reason: Headache Last Admin: 08/13/17 05:05 Dose: 650 mg Artificial Tears (Artificial Tears Opht Oint) 0 gm OU BID [facility] Last Admin: 08/13/17 10:30 Dose: 1 applic Baclofen (Lioresal) 20 mg PO HS [facility] Last Admin: 08/12/17 21:59 Dose: 20 mg Levetiracetam (Keppra 500mg Ivpb) 500 mg in 100 mls @ 460 mls/hr IVPB Q12 [facility] Last Admin: 08/13/17 12:20 Dose: 460 mls/hr Sodium Chloride (Hypertonic Saline 3%) 500 mls @ 50 mls/hr IV .Q10H [facility] Last Admin: 08/03/17 18:38 Dose: Not Given Insulin Detemir (Levemir) 8 unit SC HS [facility] Last Admin: 08/12/17 21:59 Dose: 8 unit Insulin Human Lispro (Humalog High) 0 units SC Q4H [facility] PRN Reason: Protocol Last Admin: 08/13/17 12:21 Dose: Not Given Metoprolol Tartrate (Lopressor) 5 mg IVP Q6 PRN PRN Reason: Systolic Blood Pressure Last Admin: 08/10/17 10:23 Dose: 5 mg Nifedipine (Procardia) 10 mg PO Q8 [facility] Last Admin: 08/13/17 06:21 Dose: 10 mg Nystatin/Triamcinolone Acetonide (Nystatin/Triamcinolone Cream) 1 ea TOP BID PRN PRN Reason: Excoriation Last Admin: 08/09/17 09:48 Dose: 1 applic Pantoprazole Sodium (Protonix Inj) 40 mg IVP DAILY [facility] Last Admin: 08/13/17 10:30 Dose: 40 mg - Labs Labs: 08/12/17 07:00 08/12/17 07:00 PT 10.5 Seconds (9.9-11.8) 08/01/17 08:20 INR 0.97 (0.93-1.08) 08/01/17 08:20 APTT 27.3 Seconds (23.7-30.8) 08/01/17 08:20 - Constitutional Appears: No Acute Distress - Head Exam Additional comments: Posterior scalp skin intact with sahara. - Eye Exam Eye Exam: EOMI - ENT Exam ENT Exam: Mucous Membranes Moist - Respiratory Exam Respiratory Exam: Clear to Ausculation Bilateral, Rhonchi (intermittent rhonchi) . absent: Decreased Breath Sounds, Wheezes, Respiratory Distress - Cardiovascular Exam Cardiovascular Exam: RRR, +S1, +S2. absent: JVD - GI/Abdominal Exam GI & Abdominal Exam: Soft. absent: Distended, Guarding, Rigid, Tenderness - Extremities Exam Extremities Exam: Normal Inspection. absent: Calf Tenderness, Pedal Edema Additional comments: Right wrist restraints in place - Neurological Exam Neurological Exam: Alert, Awake Additional comments: Mentation waxing and waning - Skin Skin Exam: Dry, Intact, Normal Color, Warm Assessment and Plan - Assessment and Plan (Free Text) Assessment: 67 y/o F with PMHx of Uterine CA s/p chemo/radiation and s/p total hysterectomy w/ bilateral salpingooopherectomy, DM, HTN, HLD presents with hemorrhagic CVA with midline shift, s/p decompressive craniotomy on 07/25/17. Patient unable to comprehend need for feeding tube and continues to exhibit pulling. Will place soft wrist restraint for right upper extremity. 1. Frontoparietal hemorrhagic CVA Neurosurgery: No further surgical intervention Nursing staff to discuss case with neurosurg for scalp staple/suture recs. ( When cleared to remove) Awaiting recs. Neurology signed off at this time Maintain tight blood pressure control Keppra for seizure ppx NPO aspiration precautions Replaced feeding tube today. CXR with tube in stomach. Soft wrist restraints due to pulling Continue Tube feeds Speech Lang recs appreciated: continue tube feeds. Consider alternative methods for feeding. Will discuss with family if agreeable for PEG placement. 2. Repetitive Right hand "flapping" movements continue current treatment discussed with Neurology, may be due to sequela of neuro disease baclofen 20mg PO HS continue to monitor 3. Uterine CA. S/p neurosurg bx Heme/Onc following Radiation Onc recommends further therapy once stable as outpt. Will discuss with Radiation Onc tomorrow to evaluate timing on when to begin treatment 4. Bacteremia previous Blood cultures with possible contaminant ID following Repeat Blood Cxs with no growth Abx stopped 5. Hx of DM Accuchecks ISS high dose On Levemir 8U SC HS Continue to monitor 6. Hx of HTN maintain tight blood pressure control 7. PPx Protonix SCDs Discussed case with Dr. Simone Berry PGY1 <Nik Nichols - Last Filed: 08/13/17 16:15> Objective - Vital Signs/Intake and Output Vital Signs (last 24 hours): Temp Pulse Resp BP Pulse Ox 97.6 F 107 H 20 153/75 H 97 08/13/17 06:00 08/13/17 15:02 08/13/17 06:00 08/13/17 06:21 08/13/17 06:00 Intake and Output: 08/13/17 08/13/17 06:59 18:59 Intake Total 0 900 Balance 0 900 - Medications Medications: Current Medications Acetaminophen (Tylenol 650mg/20.3ml Solution Ud) 650 mg PO Q6H PRN PRN Reason: Headache Last Admin: 08/13/17 15:02 Dose: 650 mg Artificial Tears (Artificial Tears Opht Oint) 0 gm OU BID [facility] Last Admin: 08/13/17 10:30 Dose: 1 applic Baclofen (Lioresal) 20 mg PO HS [facility] Last Admin: 08/12/17 21:59 Dose: 20 mg Levetiracetam (Keppra 500mg Ivpb) 500 mg in 100 mls @ 460 mls/hr IVPB Q12 [facility] Last Admin: 08/13/17 12:20 Dose: 460 mls/hr Insulin Detemir (Levemir) 8 unit SC HS [facility] Last Admin: 08/12/17 21:59 Dose: 8 unit Insulin Human Lispro (Humalog High) 0 units SC Q4H [facility] PRN Reason: Protocol Last Admin: 08/13/17 12:21 Dose: Not Given Metoprolol Tartrate (Lopressor) 5 mg IVP Q6 PRN PRN Reason: Systolic Blood Pressure Last Admin: 08/10/17 10:23 Dose: 5 mg Nifedipine (Procardia) 10 mg PO Q8 [facility] Last Admin: 08/13/17 15:02 Dose: 10 mg Nystatin/Triamcinolone Acetonide (Nystatin/Triamcinolone Cream) 1 ea TOP BID PRN PRN Reason: Excoriation Last Admin: 08/09/17 09:48 Dose: 1 applic Pantoprazole Sodium (Protonix Inj) 40 mg IVP DAILY [facility] Last Admin: 08/13/17 10:30 Dose: 40 mg - Labs Labs: 08/12/17 07:00 08/12/17 07:00 PT 10.5 Seconds (9.9-11.8) 08/01/17 08:20 INR 0.97 (0.93-1.08) 08/01/17 08:20 APTT 27.3 Seconds (23.7-30.8) 08/01/17 08:20 Attending/Attestation - Attestation I have personally seen and examined this patient.: Yes I have fully participated in the care of the patient.: Yes I have reviewed all pertinent clinical information, including history, physical exam and plan: Yes Notes (Text): 08/13/17 16:11 67 year old female with past medical history of uterine cancer, hypertension, diabetes, dyslipidemia and history of right parietal mass s/p recent craniotomy/ biopsy who presented with altered mental status. She was found to have hemorrhagic CVA with significant midline shift. She was seen by neurology and neurosurgery, no plan for intervention. Continue with keppra and baclofen as per neurology. Will discuss with NS when to remove suture/sahara. Pathology report showed metastatic uterine cancer. Hem/Onc and Rad/Onc evaluations were appreciated who recommended possible radiation treatment once patient is stable. Continue with nifedipine and lopressor prn and levemir and insulin ss for diabetes. Overnight she pulled out NGT which was re-inserted today. Speech and swallow follow up requested. Will discuss with family regarding alternate feeding methods (?PEG) if patient continues to fail studies. Continue with physical therapy; currently recommending acute rehab. Nik Nichlos MD Hospitalist.
--- NOTE | 2017-08-13 17:45 | RAD ---
HISTORY: NGT placement verification COMPARISON: 08/10/2017 FINDINGS: LUNGS: No pulmonary infiltrate. Linear scar/atelectasis at left base. PLEURA: Nonspecific elevation of right hemidiaphragm, unchanged. No pleural effusion or pneumothorax. CARDIOVASCULAR: Normal heart size. Double off tube extends to left upper quadrant of abdomen. OSSEOUS STRUCTURES: No significant abnormalities. VISUALIZED UPPER ABDOMEN: Normal. OTHER FINDINGS: None. IMPRESSION: No active disease.
--- NOTE | 2017-08-13 18:45 | CP.PCM.PN ---
Subjective - Date & Time of Evaluation Date of Evaluation: 08/13/17 Time of Evaluation: 15:30 - Subjective Subjective: Infectious Disease Follow Up August 13, 2017 73 yo female presented with fall and altered mental status. She was found at home on floor by family who heard her fall. The patient was brought into the ER and found to be in uncontrolled hypertension and requiring intubation on arrival in the ER. The patient was found to hae a 4.4 cm left occipital intracranial hemorrhage with intraventricular extension. Patient is recovering but still having episodes of low grade fevers. Patient herself is not making any new complaints. She still has residual right sided weakness. Afebrile in the past 48 hours. Repeat cultures sent. Cannot rule out central fever. Cultures negative to date from sets taken on 07/28/2017 and 07/29/2017. She was extubated 08/04/2017. Patient opens her eyes and can follow an occasional command such as squeezing hand. Noted family has rescinded DNR/DNI. Noted Radiation Oncology considering palliative radiation if the patient shows some reasonable improvement during this hospitalization. Blood cultures with coagulase negative staph which is most likely contamination. Patient can occasional commands. No new issues. Antibiotics completed. Noted that she failed swallow studies and required NG tube to be placed again. Objective - Vital Signs/Intake and Output Vital Signs (last 24 hours): Temp Pulse Resp BP Pulse Ox 97.6 F 107 H 20 153/75 H 97 08/13/17 06:00 08/13/17 15:02 08/13/17 06:00 08/13/17 06:21 08/13/17 06:00 Intake and Output: 08/13/17 08/13/17 06:59 18:59 Intake Total 0 900 Balance 0 900 - Medications Medications: Current Medications Acetaminophen (Tylenol 650mg/20.3ml Solution Ud) 650 mg PO Q6H PRN PRN Reason: Headache Last Admin: 08/13/17 15:02 Dose: 650 mg Artificial Tears (Artificial Tears Opht Oint) 0 gm OU BID [facility] Last Admin: 08/13/17 17:04 Dose: 1 applic Baclofen (Lioresal) 20 mg PO HS [facility] Last Admin: 08/12/17 21:59 Dose: 20 mg Levetiracetam (Keppra 500mg Ivpb) 500 mg in 100 mls @ 460 mls/hr IVPB Q12 [facility] Last Admin: 08/13/17 12:20 Dose: 460 mls/hr Insulin Detemir (Levemir) 8 unit SC HS [facility] Last Admin: 08/12/17 21:59 Dose: 8 unit Insulin Human Lispro (Humalog High) 0 units SC Q4H [facility] PRN Reason: Protocol Last Admin: 08/13/17 17:06 Dose: 4 units Metoprolol Tartrate (Lopressor) 5 mg IVP Q6 PRN PRN Reason: Systolic Blood Pressure Last Admin: 08/10/17 10:23 Dose: 5 mg Nifedipine (Procardia) 10 mg PO Q8 [facility] Last Admin: 08/13/17 15:02 Dose: 10 mg Nystatin/Triamcinolone Acetonide (Nystatin/Triamcinolone Cream) 1 ea TOP BID PRN PRN Reason: Excoriation Last Admin: 08/09/17 09:48 Dose: 1 applic Pantoprazole Sodium (Protonix Inj) 40 mg IVP DAILY [facility] Last Admin: 08/13/17 10:30 Dose: 40 mg - Labs Labs: 08/12/17 07:00 08/12/17 07:00 PT 10.5 Seconds (9.9-11.8) 08/01/17 08:20 INR 0.97 (0.93-1.08) 08/01/17 08:20 APTT 27.3 Seconds (23.7-30.8) 08/01/17 08:20 - Constitutional Appears: Non-toxic, No Acute Distress, Chronically Ill - Head Exam Head Exam: ATRAUMATIC, NORMOCEPHALIC - Eye Exam Eye Exam: EOMI, PERRL Pupil Exam: NORMAL ACCOMODATION, PERRL - ENT Exam ENT Exam: Mucous Membranes Moist, Normal External Ear Exam, TM's Normal Bilaterally - Neck Exam Neck Exam: Full ROM, Normal Inspection - Respiratory Exam Respiratory Exam: Clear to Ausculation Bilateral, NORMAL BREATHING PATTERN. absent: Rales, Rhonchi, Wheezes - Cardiovascular Exam Cardiovascular Exam: REGULAR RHYTHM, RRR, +S1, +S2 - GI/Abdominal Exam GI & Abdominal Exam: Hyperactive Bowel Sounds, Normal Bowel Sounds. absent: Distended, Tenderness - Extremities Exam Extremities Exam: Joint Swelling, Pedal Edema - Neurological Exam Neurological Exam: Alert, Awake Additional comments: AAO x 0, lethargic, left neglect - Psychiatric Exam Additional comments: Unable to fully assess. - Skin Skin Exam: Intact, Normal Color Assessment and Plan - Assessment and Plan (Free Text) Assessment: 73 yo female with low grade fevers of up to 100.4 F after suffering from a 4.4cm left occipital intracranial hemorrhage with intraventricular extension. The patient initially had fevers up to 101.7 F. Clinically, the patient has been improving. Supportive care. She was intubated on admission. She was extubated on 07/25/2017. She speaks belarusian mostly. The family states that the patient is acting and speaking appropriately other than the slurring of speech due to her right sided residual weakness. Alfredo cultures sent. There was a mild initial leukocytosis on admission but this has slowly improved. Fever trend has shown improvement. The cultures done to date have been negative so far. No consolidation seen on Chest X-ray. Patient answering question during interview and examination. Supportive care. Currently on Unasyn for antibiotic coverage. Noted C. Diff and repeat urine culture sent. No adequate sample for C. diff testing. Would obtain urinalysis. Would continue Unasyn for now. The current temperature is more likely secondary to the recent intracranial hemorrhage. Leukocytosis of 10.2 today but with a normal differential. Multiple culture sets performed to date are negative. Afebrile for the past 48 hours now. Cultures negative to date at greater than 48 hours. Cannot rule out central fever which is the most likely scenario. It appears as the hemorrhage improves the fevers are improving. The patient still with residual right sided weakness. Last CT done on 07/30/2017 showing interval evolution of known subacute hematoma in left occipital lobe without midline shift or herniation. Resolving intraventricular hemorrhage with residual mild intraventricular hemorrhage. Antibiotics completed. Extubated 08/04/2017. Able to follow occasional simple command. Supportive care. Poor fpc prognosis given Uterine cancer with brain metastasis and the recent hemorrhagic CVA. No new infectious disease issues. Difficulty with feeds. NG tube had to be replaced and patient made NPO before NG tube placement. Patient dislodged NG tube overnight. The patient is lethargic. Thank you for allowing me to participate in the care of the patient, we will follow with you.
[2017-08-13] MEDS: Insulin Detemir 100 units/ml Vial (Levemir) SC SCH (22:00)
[2017-08-14] MEDS: Insulin Lispro (HUMAlog) HIGH Coverage SC SCH ×6 (00:26→20:18)
[2017-08-14] MEDS: Acetaminophen 650mg/20.3ml solution UD PO PRN (00:32)
[2017-08-14 08:31] LABS: EOS # 0.1 (0.0-0.7); EOS % 1.3 % (1.5-5.0); GRAN # 4.97 (1.4-6.5); GRAN % 81.7 % (50.0-68.0); LYMPH # 0.7 (1.2-3.4); LYMPH % 11.2 % (22.0-35.0); MEAN CELL VOLUME 90.9 fl (80.0-105.0); MEAN CORPUSCULAR HEMOGLOBIN 29.6 pg (25.0-35.0); MEAN CORPUSCULAR HGB CONC 32.6 g/dl (31.0-37.0); MEAN PLATELET VOLUME 10.3 fl (7.0-11.0); MONO # 0.4 (0.1-0.6); MONO % 5.8 % (1.0-6.0); RED CELL DISTRIBUTION WIDTH 14.1 % (11.5-14.5); WHITE BLOOD COUNT 6.1 10^3/ul (4.5-11.0)
[2017-08-14 08:42] LABS: ALB/GLOB RATIO 1.3 (1.1-1.8); ALKALINE PHOSPHATASE 101 U/L (38-126); ALT/SGPT 47 U/L (7-56); AST/SGOT 30 U/L (14-36); BILIRUBIN,TOTAL 0.6 mg/dL (0.2-1.3); BLOOD UREA NITROGEN 18 mg/dL (7-21); CALCIUM 9.6 mg/dL (8.4-10.5); CARBON DIOXIDE 33 mmol/L (21-33); CHLORIDE 96 mmol/L (98-107); GFR AFRICAN-AMERICAN > 60; GLUCOSE,RANDOM 254 mg/dL (70-110); POTASSIUM 3.8 mmol/L (3.6-5.0); SODIUM 138 mmol/L (132-148); TOTAL PROTEIN 6.4 g/dL (5.8-8.3)
[2017-08-14] MEDS: levETIRAcetam 500mg IVPB 500 MG/100 ML BAG IVPB SCH ×2 (10:23→21:41)
[2017-08-14] MEDS: Mineral Oil/Petrolatum Opht Oint(3.5 gm) OU SCH ×2 (10:23→17:19)
[2017-08-14] MEDS ORDERED: Metoprolol 1 mg/ml Inj IVP PRN (14:50)
--- NOTE | 2017-08-14 14:53 | CP.PCM.PN ---
<Mode Loera - Last Filed: 08/14/17 19:19> Subjective - Date & Time of Evaluation Date of Evaluation: 08/14/17 Time of Evaluation: 09:51 - Subjective Subjective: Patient was seen and examined at bedside. The patient still showing gross motor deficits, however was able to say she felt ok when speaking with her. The remainder of ROS was unobtainable due to patient's current clinical condition. Objective - Vital Signs/Intake and Output Vital Signs (last 24 hours): Temp Pulse Resp BP Pulse Ox 98.7 F 104 H 20 165/88 H 100 08/14/17 06:00 08/14/17 06:00 08/14/17 06:00 08/14/17 06:00 08/14/17 06:00 Intake and Output: 08/14/17 08/14/17 06:59 18:59 Intake Total 1000 Balance 1000 - Medications Medications: Current Medications Acetaminophen (Tylenol 650mg/20.3ml Solution Ud) 650 mg PO Q6H PRN PRN Reason: Headache Last Admin: 08/14/17 00:32 Dose: 650 mg Artificial Tears (Artificial Tears Opht Oint) 0 gm OU BID [facility] Last Admin: 08/14/17 10:23 Dose: 1 applic Baclofen (Lioresal) 20 mg PO HS [facility] Last Admin: 08/13/17 21:10 Dose: 20 mg Levetiracetam (Keppra 500mg Ivpb) 500 mg in 100 mls @ 460 mls/hr IVPB Q12 [facility] Last Admin: 08/14/17 10:23 Dose: 460 mls/hr Insulin Detemir (Levemir) 8 unit SC HS [facility] Last Admin: 08/13/17 22:00 Dose: 8 unit Insulin Human Lispro (Humalog High) 0 units SC Q4H [facility] PRN Reason: Protocol Last Admin: 08/14/17 12:12 Dose: 4 units Metoprolol Tartrate (Lopressor) 6.25 mg IVP Q6 PRN PRN Reason: Systolic Blood Pressure Nifedipine (Procardia) 10 mg PO Q8 [facility] Last Admin: 08/14/17 05:39 Dose: 10 mg Nystatin/Triamcinolone Acetonide (Nystatin/Triamcinolone Cream) 1 ea TOP BID PRN PRN Reason: Excoriation Last Admin: 08/09/17 09:48 Dose: 1 applic Pantoprazole Sodium (Protonix Inj) 40 mg IVP DAILY [facility] Last Admin: 08/14/17 09:15 Dose: 40 mg - Labs Labs: 08/14/17 08:10 08/14/17 08:10 PT 10.5 Seconds (9.9-11.8) 08/01/17 08:20 INR 0.97 (0.93-1.08) 08/01/17 08:20 APTT 27.3 Seconds (23.7-30.8) 08/01/17 08:20 - Head Exam Head Exam: ATRAUMATIC, NORMAL INSPECTION, NORMOCEPHALIC - Eye Exam Eye Exam: Normal appearance, PERRL. absent: Conjunctival injection, Periorbital tenderness Pupil Exam: NORMAL ACCOMODATION - ENT Exam ENT Exam: Mucous Membranes Moist, Normal Oropharynx - Neck Exam Neck Exam: Normal Inspection. absent: Lymphadenopathy, Thyromegaly - Respiratory Exam Respiratory Exam: Clear to Ausculation Bilateral, Rhonchi, NORMAL BREATHING PATTERN. absent: Decreased Breath Sounds - Cardiovascular Exam Cardiovascular Exam: REGULAR RHYTHM, +S1, +S2. absent: Gallop, RRR, Rubs - GI/Abdominal Exam GI & Abdominal Exam: Soft, Normal Bowel Sounds. absent: Rigid, Tenderness - Extremities Exam Additional comments: soft restraints present. - Neurological Exam Neurological Exam: Altered - Skin Skin Exam: Dry, Normal Color Assessment and Plan - Assessment and Plan (Free Text) Assessment: 67 y/o F with PMHx of Uterine CA s/p chemo/radiation and s/p total hysterectomy w/ bilateral salpingooopherectomy, DM, HTN, HLD presents with hemorrhagic CVA with midline shift, s/p decompressive craniotomy on 07/25/17. Patient unable to comprehend need for feeding tube and continues to exhibit pulling. Will place soft wrist restraint for right upper extremity. Plan: 1. Frontoparietal hemorrhagic CVA -Neurosurgery: No further surgical intervention -Nursing staff to discuss case with neurosurgery for scalp staple/suture recs. ( When cleared to remove) Awaiting recs. -Neurology signed off at this time -Maintain tight blood pressure control -Continue Keppra for seizure ppx -Continue NPO -Continue aspiration precautions -Replaced feeding tube today. CXR with tube in stomach. -Continue Soft wrist restraints due to pulling. Reassess need tomorrow in the morning. -Continue Tube feeds. -Speech Language recs appreciated: continue tube feeds. Consider alternative methods for feeding. -F/u with family about peg tube. 2. Repetitive Right hand "flapping" movements -continue current treatment -discussed with Neurology, may be due to sequela of neuro disease -continue baclofen 20mg PO HS -continue to monitor 3. Uterine CA. S/p neurosurg bx -Heme/Onc following -Radiation Onc recommends further therapy once stable as outpatient. -Will f/u with rec's with heme-onc tomrrow. 4. Bacteremia -previous Blood cultures with possible contaminant -ID following -Repeat Blood Cxs with no growth -Abx stopped 5. Hx of DM -Continue Accuchecks -ISS high dose -On Levemir 8U SC HS -Continue to monitor 6. Hx of HTN -maintain tight blood pressure control. Lopressor increased. Continue to watch closely. 7. PPx -Continue Protonix -Continue SCDs <Davon DIETRICH,Roly - Last Filed: 08/15/17 11:50> Objective - Vital Signs/Intake and Output Vital Signs (last 24 hours): Temp Pulse Resp BP Pulse Ox 97.3 F L 109 H 22 168/96 H 100 08/15/17 04:00 08/15/17 06:00 08/15/17 04:00 08/15/17 04:00 08/15/17 04:00 Intake and Output: 08/15/17 08/15/17 06:59 18:59 Intake Total 0 0 Balance 0 0 - Medications Medications: Current Medications Acetaminophen (Tylenol 650mg/20.3ml Solution Ud) 650 mg PO Q6H PRN PRN Reason: Headache Last Admin: 08/14/17 00:32 Dose: 650 mg Artificial Tears (Artificial Tears Opht Oint) 0 gm OU BID [facility] Last Admin: 08/15/17 09:19 Dose: 1 applic Baclofen (Lioresal) 20 mg PO HS [facility] Last Admin: 08/14/17 21:42 Dose: 20 mg Levetiracetam (Keppra 500mg Ivpb) 500 mg in 100 mls @ 460 mls/hr IVPB Q12 [facility] Last Admin: 08/15/17 09:19 Dose: 460 mls/hr Insulin Detemir (Levemir) 10 unit SC HS [facility] Insulin Human Lispro (Humalog High) 0 units SC Q4H [facility] PRN Reason: Protocol Last Admin: 08/15/17 08:03 Dose: 10 units Metoprolol Tartrate (Lopressor) 25 mg PO BRKDIN [facility] Nifedipine (Procardia) 10 mg PO Q8 [facility] Last Admin: 08/15/17 05:44 Dose: 10 mg Nystatin/Triamcinolone Acetonide (Nystatin/Triamcinolone Cream) 1 ea TOP BID PRN PRN Reason: Excoriation Last Admin: 08/09/17 09:48 Dose: 1 applic Pantoprazole Sodium (Protonix Inj) 40 mg IVP DAILY [facility] Last Admin: 08/15/17 09:19 Dose: 40 mg - Labs Labs: 08/15/17 08:20 08/15/17 08:20 PT 10.5 Seconds (9.9-11.8) 08/01/17 08:20 INR 0.97 (0.93-1.08) 08/01/17 08:20 APTT 27.3 Seconds (23.7-30.8) 08/01/17 08:20 Attending/Attestation - Attestation I have personally seen and examined this patient.: Yes I have fully participated in the care of the patient.: Yes I have reviewed all pertinent clinical information, including history, physical exam and plan: Yes Notes (Text): 08/15/17 11:45 Patient was seen and examined with medical pathology teacher. 67 year old female with PMH of uterine cancer, hypertension, diabetes, dyslipidemia and history of right parietal mass s/p recent craniotomy/biopsy was admitted with altered mental status. She was found to have hemorrhagic CVA with significant midline shift. She was seen by neurology and neurosurgery , no plan for intervention. Continue with keppra and baclofen as per neurology. Will discuss with NS when to remove suture/sahara. Pathology report showed metastatic uterine cancer. Hem/Onc and Rad/Onc recommended possible radiation treatment once patient is stable. Patient has failed swallow evaluation,will get GI consult for PEG tube placement. Prognosis is guarded.
--- NOTE | 2017-08-14 20:31 | CP.PCM.PN ---
Subjective - Date & Time of Evaluation Date of Evaluation: 08/14/17 Time of Evaluation: 17:15 - Subjective Subjective: Infectious Disease Follow Up August 14, 2017 73 yo female presented with fall and altered mental status. She was found at home on floor by family who heard her fall. The patient was brought into the ER and found to be in uncontrolled hypertension and requiring intubation on arrival in the ER. The patient was found to hae a 4.4 cm left occipital intracranial hemorrhage with intraventricular extension. Patient is recovering but still having episodes of low grade fevers. Patient herself is not making any new complaints. She still has residual right sided weakness. Afebrile in the past 48 hours. Repeat cultures sent. Cannot rule out central fever. Cultures negative to date from sets taken on 07/28/2017 and 07/29/2017. She was extubated 08/04/2017. Patient opens her eyes and can follow an occasional command such as squeezing hand. Noted family has rescinded DNR/DNI. Noted Radiation Oncology considering palliative radiation if the patient shows some reasonable improvement during this hospitalization. Blood cultures with coagulase negative staph which is most likely contamination. Patient can occasional commands. No new issues. Antibiotics completed. Poorly responsive. Noted that she failed swallow studies and required NG tube to be placed again. Objective - Vital Signs/Intake and Output Vital Signs (last 24 hours): Temp Pulse Resp BP Pulse Ox 99.3 F 99 H 20 149/75 97 08/14/17 17:34 08/14/17 17:34 08/14/17 17:34 08/14/17 17:34 08/14/17 17:34 Intake and Output: 08/14/17 08/15/17 18:59 06:59 Intake Total 0 Balance 0 - Medications Medications: Current Medications Acetaminophen (Tylenol 650mg/20.3ml Solution Ud) 650 mg PO Q6H PRN PRN Reason: Headache Last Admin: 08/14/17 00:32 Dose: 650 mg Artificial Tears (Artificial Tears Opht Oint) 0 gm OU BID [facility] Last Admin: 08/14/17 17:19 Dose: 1 applic Baclofen (Lioresal) 20 mg PO HS [facility] Last Admin: 08/13/17 21:10 Dose: 20 mg Levetiracetam (Keppra 500mg Ivpb) 500 mg in 100 mls @ 460 mls/hr IVPB Q12 [facility] Last Admin: 08/14/17 10:23 Dose: 460 mls/hr Insulin Detemir (Levemir) 8 unit SC HS [facility] Last Admin: 08/13/17 22:00 Dose: 8 unit Insulin Human Lispro (Humalog High) 0 units SC Q4H [facility] PRN Reason: Protocol Last Admin: 08/14/17 20:18 Dose: Not Given Metoprolol Tartrate (Lopressor) 6.25 mg IVP Q6 PRN PRN Reason: Systolic Blood Pressure Nifedipine (Procardia) 10 mg PO Q8 [facility] Last Admin: 08/14/17 15:27 Dose: 10 mg Nystatin/Triamcinolone Acetonide (Nystatin/Triamcinolone Cream) 1 ea TOP BID PRN PRN Reason: Excoriation Last Admin: 08/09/17 09:48 Dose: 1 applic Pantoprazole Sodium (Protonix Inj) 40 mg IVP DAILY [facility] Last Admin: 08/14/17 09:15 Dose: 40 mg - Labs Labs: 08/14/17 08:10 08/14/17 08:10 PT 10.5 Seconds (9.9-11.8) 08/01/17 08:20 INR 0.97 (0.93-1.08) 08/01/17 08:20 APTT 27.3 Seconds (23.7-30.8) 08/01/17 08:20 - Constitutional Appears: Non-toxic, No Acute Distress, Chronically Ill - Head Exam Head Exam: ATRAUMATIC, NORMOCEPHALIC - Eye Exam Eye Exam: EOMI, PERRL Pupil Exam: NORMAL ACCOMODATION, PERRL - ENT Exam ENT Exam: Mucous Membranes Moist, Normal External Ear Exam, TM's Normal Bilaterally - Neck Exam Neck Exam: Full ROM, Normal Inspection - Respiratory Exam Respiratory Exam: Clear to Ausculation Bilateral, NORMAL BREATHING PATTERN. absent: Rales, Rhonchi, Wheezes - Cardiovascular Exam Cardiovascular Exam: REGULAR RHYTHM, RRR, +S1, +S2 - GI/Abdominal Exam GI & Abdominal Exam: Soft, Normal Bowel Sounds. absent: Distended, Tenderness - Extremities Exam Extremities Exam: Joint Swelling, Pedal Edema - Neurological Exam Neurological Exam: Alert, Awake Additional comments: AAO x 0, lethargic, left neglect - Psychiatric Exam Additional comments: Unable to fully assess. - Skin Skin Exam: Intact, Normal Color Assessment and Plan - Assessment and Plan (Free Text) Assessment: 73 yo female with low grade fevers of up to 100.4 F after suffering from a 4.4cm left occipital intracranial hemorrhage with intraventricular extension. The patient initially had fevers up to 101.7 F. Clinically, the patient has been improving. Supportive care. She was intubated on admission. She was extubated on 07/25/2017. She speaks arabic mostly. The family states that the patient is acting and speaking appropriately other than the slurring of speech due to her right sided residual weakness. Alfredo cultures sent. There was a mild initial leukocytosis on admission but this has slowly improved. Fever trend has shown improvement. The cultures done to date have been negative so far. No consolidation seen on Chest X-ray. Patient answering question during interview and examination. Supportive care. Currently on Unasyn for antibiotic coverage. Noted C. Diff and repeat urine culture sent. No adequate sample for C. diff testing. Would obtain urinalysis. Would continue Unasyn for now. The current temperature is more likely secondary to the recent intracranial hemorrhage. Leukocytosis of 10.2 today but with a normal differential. Multiple culture sets performed to date are negative. Afebrile for the past 48 hours now. Cultures negative to date at greater than 48 hours. Cannot rule out central fever which is the most likely scenario. It appears as the hemorrhage improves the fevers are improving. The patient still with residual right sided weakness. Last CT done on 07/30/2017 showing interval evolution of known subacute hematoma in left occipital lobe without midline shift or herniation. Resolving intraventricular hemorrhage with residual mild intraventricular hemorrhage. Antibiotics completed. Extubated 08/04/2017. Able to follow occasional simple command. Supportive care. Poor outbound telemarketing representative prognosis given Uterine cancer with brain metastasis and the recent hemorrhagic CVA. No new infectious disease issues. Difficulty with feeds. NG tube had to be replaced and patient made NPO before NG tube placement. Patient dislodged NG tube a night ago. The patient is lethargic. Thank you for allowing me to participate in the care of the patient, we will follow with you.
[2017-08-14] MEDS: Insulin Detemir 100 units/ml Vial (Levemir) SC SCH (21:41)
[2017-08-15] MEDS: Insulin Lispro (HUMAlog) HIGH Coverage SC SCH ×6 (00:09→22:17)
[2017-08-15 08:24] LABS: BASO # 0.01 K/mm3 (0.0-2.0); BASO % 0.2 % (0.0-3.0); EOS # 0.1 (0.0-0.7); EOS % 1.7 % (1.5-5.0); GRAN # 4.13 (1.4-6.5); GRAN % 76.9 % (50.0-68.0); HEMATOCRIT 26.8 % (36.0-48.0); LYMPH # 0.8 (1.2-3.4); LYMPH % 14.9 % (22.0-35.0); MEAN CELL VOLUME 91.5 fl (80.0-105.0); MEAN CORPUSCULAR HEMOGLOBIN 29.4 pg (25.0-35.0); MEAN CORPUSCULAR HGB CONC 32.1 g/dl (31.0-37.0); MEAN PLATELET VOLUME 9.2 fl (7.0-11.0); MONO # 0.3 (0.1-0.6); MONO % 6.3 % (1.0-6.0); RED CELL DISTRIBUTION WIDTH 14.2 % (11.5-14.5); WHITE BLOOD COUNT 5.4 10^3/ul (4.5-11.0)
[2017-08-15 08:48] LABS: ALB/GLOB RATIO 1.4 (1.1-1.8); ALKALINE PHOSPHATASE 95 U/L (38-126); ALT/SGPT 46 U/L (7-56); AST/SGOT 35 U/L (14-36); BILIRUBIN,TOTAL 0.5 mg/dL (0.2-1.3); BLOOD UREA NITROGEN 18 mg/dL (7-21); CALCIUM 9.5 mg/dL (8.4-10.5); CARBON DIOXIDE 33 mmol/L (21-33); CHLORIDE 97 mmol/L (98-107); GFR AFRICAN-AMERICAN > 60; GLUCOSE,RANDOM 260 mg/dL (70-110); POTASSIUM 3.9 mmol/L (3.6-5.0); SODIUM 139 mmol/L (132-148); TOTAL PROTEIN 6.3 g/dL (5.8-8.3)
[2017-08-15] MEDS: levETIRAcetam 500mg IVPB 500 MG/100 ML BAG IVPB SCH ×2 (09:19→22:18)
[2017-08-15] MEDS: Mineral Oil/Petrolatum Opht Oint(3.5 gm) OU SCH (09:19)
--- NOTE | 2017-08-15 11:32 | CP.PCM.PN ---
<Mode Loera - Last Filed: 08/15/17 15:54> Subjective - Date & Time of Evaluation Date of Evaluation: 08/15/17 Time of Evaluation: 08:29 - Subjective Subjective: Patient seen and examined at bedside. Per nursing there were no acute events overnight. The patient reports feeling better upon questioning this morning. The remainder of ROS unobtainable due to patient's current clinical condition. Objective - Vital Signs/Intake and Output Vital Signs (last 24 hours): Temp Pulse Resp BP Pulse Ox 97.3 F L 109 H 22 168/96 H 100 08/15/17 04:00 08/15/17 06:00 08/15/17 04:00 08/15/17 04:00 08/15/17 04:00 Intake and Output: 08/15/17 08/15/17 06:59 18:59 Intake Total 0 0 Balance 0 0 - Medications Medications: Current Medications Acetaminophen (Tylenol 650mg/20.3ml Solution Ud) 650 mg PO Q6H PRN PRN Reason: Headache Last Admin: 08/14/17 00:32 Dose: 650 mg Artificial Tears (Artificial Tears Opht Oint) 0 gm OU BID [facility] Last Admin: 08/15/17 09:19 Dose: 1 applic Baclofen (Lioresal) 20 mg PO HS [facility] Last Admin: 08/14/17 21:42 Dose: 20 mg Levetiracetam (Keppra 500mg Ivpb) 500 mg in 100 mls @ 460 mls/hr IVPB Q12 [facility] Last Admin: 08/15/17 09:19 Dose: 460 mls/hr Insulin Detemir (Levemir) 8 unit SC HS [facility] Last Admin: 08/14/17 21:41 Dose: 8 unit Insulin Human Lispro (Humalog High) 0 units SC Q4H [facility] PRN Reason: Protocol Last Admin: 08/15/17 08:03 Dose: 10 units Metoprolol Tartrate (Lopressor) 25 mg PO BRKDIN [facility] Nifedipine (Procardia) 10 mg PO Q8 [facility] Last Admin: 08/15/17 05:44 Dose: 10 mg Nystatin/Triamcinolone Acetonide (Nystatin/Triamcinolone Cream) 1 ea TOP BID PRN PRN Reason: Excoriation Last Admin: 08/09/17 09:48 Dose: 1 applic Pantoprazole Sodium (Protonix Inj) 40 mg IVP DAILY [facility] Last Admin: 08/15/17 09:19 Dose: 40 mg - Labs Labs: 08/15/17 08:20 08/15/17 08:20 PT 10.5 Seconds (9.9-11.8) 08/01/17 08:20 INR 0.97 (0.93-1.08) 08/01/17 08:20 APTT 27.3 Seconds (23.7-30.8) 08/01/17 08:20 - Head Exam Head Exam: ATRAUMATIC, NORMAL INSPECTION, NORMOCEPHALIC - Eye Exam Eye Exam: EOMI, Normal appearance, PERRL. absent: Conjunctival injection, Periorbital tenderness Pupil Exam: NORMAL ACCOMODATION, PERRL. absent: Irregular, Unequal - ENT Exam ENT Exam: Mucous Membranes Moist, Normal Exam - Neck Exam Neck Exam: Normal Inspection. absent: Lymphadenopathy, Thyromegaly - Respiratory Exam Respiratory Exam: Clear to Ausculation Bilateral, NORMAL BREATHING PATTERN. absent: Accessory Muscle Use, Chest Wall Tenderness, Respiratory Distress - Cardiovascular Exam Cardiovascular Exam: REGULAR RHYTHM, +S1, +S2. absent: Gallop, Rubs - GI/Abdominal Exam GI & Abdominal Exam: Soft, Normal Bowel Sounds - Extremities Exam Extremities Exam: Pedal Edema. absent: Full ROM - Back Exam Back Exam: NORMAL INSPECTION - Neurological Exam Neurological Exam: Altered, Motor Sensory Deficit - Psychiatric Exam Psychiatric exam: Normal Mood - Skin Skin Exam: Dry Assessment and Plan - Assessment and Plan (Free Text) Assessment: 67 y/o F with PMHx of Uterine CA s/p chemo/radiation and s/p total hysterectomy w/ bilateral salpingooopherectomy, DM, HTN, HLD presents with hemorrhagic CVA with midline shift, s/p decompressive craniotomy on 07/25/17. Patient unable to comprehend need for feeding tube and continues to exhibit pulling. Will place soft wrist restraint for right upper extremity. Plan: 1. Frontoparietal hemorrhagic CVA -Neurosurgery: No further surgical intervention -Nursing staff to discuss case with neurosurgery for scalp staple/suture recs. ( When cleared to remove) Awaiting recs. -Neurology signed off at this time -Maintain tight blood pressure control. BP med -Continue Keppra for seizure ppx -Continue NPO -Continue aspiration precautions -Replaced feeding tube today. CXR with tube in stomach. -Continue Soft wrist restraints due to pulling. Reassess need tomorrow in the morning. -Continue Tube feeds. -Speech Language recs appreciated: continue tube feeds. -F/u with family about peg tube. 2. Repetitive Right hand "flapping" movements -Patient in soft restraints for the right hand. Will continue to monitor closely. -continue current treatment -discussed with Neurology, may be due to sequela of neuro disease -continue baclofen 20mg PO HS -continue to monitor 3. Uterine CA. S/p neurosurg bx -Heme/Onc following -Radiation Onc recommends further therapy once stable as outpatient. -Will f/u with rec's with heme-onc tomorrow. 4. Bacteremia -No leukocytosis present. -previous Blood cultures with possible contaminant -ID following -Repeat Blood Cxs with no growth -Abx stopped 5. Hx of DM -Continue Accuchecks -ISS high dose -On Levemir 10U SC HS. Will monitor closely. -Continue to monitor 6. Hx of HTN -maintain tight blood pressure control. Lopressor increased. Continue to watch closely. 7. PPx -Continue Protonix -Continue SCDs <Roly Mays - Last Filed: 08/17/17 16:00> Objective - Vital Signs/Intake and Output Vital Signs (last 24 hours): Temp Pulse Resp BP Pulse Ox 97.4 F L 106 H 20 164/82 H 99 08/17/17 06:00 08/17/17 06:12 08/17/17 06:00 08/17/17 06:12 08/17/17 06:00 Intake and Output: 08/17/17 08/17/17 06:59 18:59 Intake Total 0 0 Balance 0 0 - Medications Medications: Current Medications Acetaminophen (Tylenol 650mg/20.3ml Solution Ud) 650 mg PO Q6H PRN PRN Reason: Headache Last Admin: 08/16/17 20:02 Dose: 650 mg Artificial Tears (Artificial Tears Opht Oint) 0 gm OU BID [facility] Last Admin: 08/16/17 10:10 Dose: 1 applic Baclofen (Lioresal) 20 mg PO [facility] Last Admin: 08/16/17 21:01 Dose: 20 mg Insulin Detemir (Levemir) 10 unit SC [facility] Last Admin: 08/16/17 21:01 Dose: 10 unit Insulin Human Lispro (Humalog High) 0 units SC Q4H [facility] PRN Reason: Protocol Stop: 08/25/17 00:01 Last Admin: 08/17/17 04:19 Dose: 7 units Metoclopramide HCl (Reglan) 5 mg NG TID [facility] Metoprolol Tartrate (Lopressor) 50 mg PO BRKDIN [facility] Nifedipine (Procardia) 10 mg PO Q8 [facility] Last Admin: 08/17/17 06:12 Dose: 10 mg - Labs Labs: 08/17/17 06:00 08/17/17 06:00 PT 10.5 Seconds (9.9-11.8) 08/01/17 08:20 INR 0.97 (0.93-1.08) 08/01/17 08:20 APTT 27.3 Seconds (23.7-30.8) 08/01/17 08:20 Attending/Attestation - Attestation I have personally seen and examined this patient.: Yes I have fully participated in the care of the patient.: Yes I have reviewed all pertinent clinical information, including history, physical exam and plan: Yes Notes (Text): 08/17/17 15:57 Patient was seen and examined with hospital medical biller. 67 year old female with PMH of uterine cancer, hypertension, diabetes, dyslipidemia and history of right parietal mass s/p recent craniotomy/biopsy was admitted with altered mental status. She was found to have hemorrhagic CVA with significant midline shift. She was seen by neurology and neurosurgery , no plan for intervention. Continue with keppra and baclofen as per neurology. Pathology report showed metastatic uterine cancer. Hem/Onc and Rad/Onc recommended possible radiation treatment once patient is stable. Patient mental status is poor.There is no new focal deficit.Patient has failed swallow evaluation,awaiting for family to make decision regarding PEG tube. GI evaluation is appreciated. Prognosis is guarded.
--- NOTE | 2017-08-15 13:14 | CP.PCM.CON ---
<Alecia Pichardo - Last Filed: 08/15/17 13:34> History of Present Illness - History of Present Illness History of Present Illness: Initial GI Progress Note Ayah Guillen is a 67F w a hx of DM, HTN, and uterine Ca who presented after a fall and AMS. 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 She was diagnosed 3 years ago with uterine ca and underwent surgery, chemotherapy, and radiation. One month ago, she was recently admitted to [facility] with left sided weakness and frequent falls. At the time a CT of the head which revealed a hypodense fluid collection with mass effect on the right lateral ventricle with a 4mm shift. A MRI of the brain revealed a large cystic mass in the right parietal lobe. A subsequent CT of the chest, abdomen and pelvis revealed no metastases. She underwent a craniotomy with biopsy which revealed poorly differentiated carcinoma consistent with her uterine cancer. [facility], and suddenly developed headaches, nausea, vomiting and was unresponsive as per the family. She was transferred back to [facility] for further evaluation and found to have hemorrhage in the frontoparietal region with moderate to large edema with a 14mm shift. She has intubated initialled then extubated. Her post-op course has been complicated due to dysphagia. She has failed multiple speech swallow evals with risk of moderate to severe aspiration. Past medical history: Uterine cancer, DM, HTN Past surgical history: FITO-BSO Family history: Mother had breast cancer Social history: Denies tobacco, alcohol, and illicit drug use. Endo hx: denies ROS: could not be completed Past Patient History - Infectious Disease Hx of Infectious Diseases: None - Past Medical History & Family History Past Medical History?: Yes - Past Social History Smoking Status: Never Smoked Alcohol: None Home Situation {Lives}: With Family - CARDIAC Hx Hypertension: Yes - PULMONARY Hx Respiratory Disorders: No Hx Asthma: No (didn't mention) - NEUROLOGICAL Hx Neurological Disorder: No Hx Seizures: No Hx Syncope: No - HEENT Hx HEENT Problems: Yes Hx Cataracts: Yes - RENAL Hx Chronic Kidney Disease: No - ENDOCRINE/METABOLIC Hx Diabetes Mellitus Type 1: Yes - HEMATOLOGICAL/ONCOLOGICAL Hx Blood Disorders: Yes Hx Cancer: Yes (uterine ) Hx Chemotherapy: Yes Other/Comment: Uterus cancer- last cheml in february 2017 - INTEGUMENTARY Hx Dermatological Problems: No - MUSCULOSKELETAL/RHEUMATOLOGICAL Hx Musculoskeletal Disorders: Yes Hx Falls: Yes - GASTROINTESTINAL Hx Gastrointestinal Disorders: No - GENITOURINARY/GYNECOLOGICAL Hx Genitourinary Disorders: No - PSYCHIATRIC Hx Psychophysiologic Disorder: No Hx Substance Use: No - SURGICAL HISTORY Hx Cholecystectomy: Yes Hx Hysterectomy: Yes - ANESTHESIA Hx Anesthesia: Yes Hx Anesthesia Reactions: No Hx Malignant Hyperthermia: No Meds Allergies/Adverse Reactions: Allergies Allergy/AdvReac Type Severity Reaction Status Date / Time Penicillins Allergy ANGIOEDEMA Verified 07/19/17 18:41 - Medications Medications: Current Medications Acetaminophen (Tylenol 650mg/20.3ml Solution Ud) 650 mg PO Q6H PRN PRN Reason: Headache Last Admin: 08/14/17 00:32 Dose: 650 mg Artificial Tears (Artificial Tears Opht Oint) 0 gm OU BID [facility] Last Admin: 08/15/17 09:19 Dose: 1 applic Baclofen (Lioresal) 20 mg PO HS [facility] Last Admin: 08/14/17 21:42 Dose: 20 mg Levetiracetam (Keppra 500mg Ivpb) 500 mg in 100 mls @ 460 mls/hr IVPB Q12 [facility] Last Admin: 08/15/17 09:19 Dose: 460 mls/hr Insulin Detemir (Levemir) 10 unit SC HS [facility] Insulin Human Lispro (Humalog High) 0 units SC Q4H [facility] PRN Reason: Protocol Last Admin: 08/15/17 12:58 Dose: 4 units Metoprolol Tartrate (Lopressor) 25 mg PO BRKDIN [facility] Nifedipine (Procardia) 10 mg PO Q8 [facility] Last Admin: 08/15/17 05:44 Dose: 10 mg Nystatin/Triamcinolone Acetonide (Nystatin/Triamcinolone Cream) 1 ea TOP BID PRN PRN Reason: Excoriation Last Admin: 08/09/17 09:48 Dose: 1 applic Pantoprazole Sodium (Protonix Inj) 40 mg IVP DAILY [facility] Last Admin: 08/15/17 09:19 Dose: 40 mg Physical Exam - Constitutional Appears: No Acute Distress, Confused, Chronically Ill - Head Exam Additional comments: scar over right parietal - Eye Exam Eye Exam: Normal appearance - ENT Exam ENT Exam: Mucous Membranes Moist - Respiratory Exam Respiratory Exam: Clear to Auscultation Bilateral, NORMAL BREATHING PATTERN. absent: Rales, Rhonchi, Wheezes, Respiratory Distress - Cardiovascular Exam Cardiovascular Exam: REGULAR RHYTHM, +S1, +S2 - GI/Abdominal Exam GI & Abdominal Exam: Normal Bowel Sounds, Soft. absent: Rigid Additional comments: old scar in RUQ - Neurological Exam Neurological exam: Altered - Psychiatric Exam Additional comments: could not assess - Skin Skin Exam: Dry, Intact, Normal Color, Warm Results - Vital Signs Recent Vital Signs: Last Vital Signs Temp 97.3 F L 08/15/17 04:00 Pulse 109 H 08/15/17 06:00 Resp 22 08/15/17 04:00 BP 168/96 H 08/15/17 04:00 Pulse Ox 100 08/15/17 04:00 - Labs Result Diagrams: 08/15/17 08:20 08/15/17 08:20 Labs: Laboratory Results - last 24 hr 08/14/17 08/14/17 08/15/17 15:27 20:05 00:02 WBC RBC Hgb Hct MCV MCH MCHC RDW Plt Count MPV Gran % Lymph % (Auto) [place] % (Auto) Eos % (Auto) Baso % (Auto) Gran # Lymph # [place] # Eos # Baso # Sodium Potassium Chloride Carbon Dioxide Anion Gap BUN Creatinine Est GFR ( Amer) Est GFR (Non-Af Amer) POC Glucose (mg/dL) 204 H 224 H 266 H Random Glucose Calcium Total Bilirubin AST ALT Alkaline Phosphatase Total Protein Albumin Globulin Albumin/Globulin Ratio 08/15/17 08/15/17 08/15/17 04:19 07:21 08:20 WBC 5.4 RBC 2.93 L Hgb 8.6 L Hct 26.8 L MCV 91.5 MCH 29.4 MCHC 32.1 RDW 14.2 Plt Count 204 MPV 9.2 Gran % 76.9 H Lymph % (Auto) 14.9 L [place] % (Auto) 6.3 H Eos % (Auto) 1.7 Baso % (Auto) 0.2 Gran # 4.13 Lymph # 0.8 L [place] # 0.3 Eos # 0.1 Baso # 0.01 Sodium Potassium Chloride Carbon Dioxide Anion Gap BUN Creatinine Est GFR ( Amer) Est GFR (Non-Af Amer) POC Glucose (mg/dL) 269 H 308 H Random Glucose Calcium Total Bilirubin AST ALT Alkaline Phosphatase Total Protein Albumin Globulin Albumin/Globulin Ratio 08/15/17 08/15/17 08:20 11:51 WBC RBC Hgb Hct MCV MCH MCHC RDW Plt Count MPV Gran % Lymph % (Auto) [place] % (Auto) Eos % (Auto) Baso % (Auto) Gran # Lymph # [place] # Eos # Baso # Sodium 139 Potassium 3.9 Chloride 97 L Carbon Dioxide 33 Anion Gap 13 BUN 18 Creatinine 0.6 Est GFR ( Amer) > 60 Est GFR (Non-Af Amer) > 60 POC Glucose (mg/dL) 230 H Random Glucose 260 H Calcium 9.5 Total Bilirubin 0.5 AST 35 ALT 46 Alkaline Phosphatase 95 Total Protein 6.3 Albumin 3.6 Globulin 2.6 Albumin/Globulin Ratio 1.4 Assessment & Plan - Assessment and Plan (Free Text) Assessment: Ayah Guillen is a 67F w/ hx of met uterine ca, HTN, and DM who presents with hemorrhagic CVA. Pt is awake, but does not have any meaningful interaction. She has failed many swallow eval likely 2/2 CVA 1. Dysphagia 2/2 CVA 2. Aspiration risk 3. Frontoparietal hemorrhagic CVA Plan: -spoke with family discussed the need for permanent nutritional conduit -continue feeds VIA NG -spoke with who was at bedside and daughter over the phone -discussed the pt's current condition and need to PEG -risk and benefits explained to the family -Family will have a discussion amongst themsleves and decide -recommend family meeting with primary medical team to discuss goals of care and outcome D/W Dr. Sweeney <Giorgio Sweeney - Last Filed: 08/15/17 13:45> Meds - Medications Medications: Current Medications Acetaminophen (Tylenol 650mg/20.3ml Solution Ud) 650 mg PO Q6H PRN PRN Reason: Headache Last Admin: 08/14/17 00:32 Dose: 650 mg Artificial Tears (Artificial Tears Opht Oint) 0 gm OU BID [facility] Last Admin: 08/15/17 09:19 Dose: 1 applic Baclofen (Lioresal) 20 mg PO HS [facility] Last Admin: 08/14/17 21:42 Dose: 20 mg Levetiracetam (Keppra 500mg Ivpb) 500 mg in 100 mls @ 460 mls/hr IVPB Q12 [facility] Last Admin: 08/15/17 09:19 Dose: 460 mls/hr Insulin Detemir (Levemir) 10 unit SC HS [facility] Insulin Human Lispro (Humalog High) 0 units SC Q4H [facility] PRN Reason: Protocol Last Admin: 08/15/17 12:58 Dose: 4 units Metoprolol Tartrate (Lopressor) 25 mg PO BRKDIN [facility] Nifedipine (Procardia) 10 mg PO Q8 [facility] Last Admin: 08/15/17 13:30 Dose: 10 mg Nystatin/Triamcinolone Acetonide (Nystatin/Triamcinolone Cream) 1 ea TOP BID PRN PRN Reason: Excoriation Last Admin: 08/09/17 09:48 Dose: 1 applic Pantoprazole Sodium (Protonix Inj) 40 mg IVP DAILY [facility] Last Admin: 08/15/17 09:19 Dose: 40 mg Results - Vital Signs Recent Vital Signs: Last Vital Signs Temp 97.3 F L 08/15/17 04:00 Pulse 91 H 08/15/17 13:30 Resp 22 08/15/17 04:00 BP 164/119 H 08/15/17 13:30 Pulse Ox 100 08/15/17 04:00 - Labs Result Diagrams: 08/15/17 08:20 08/15/17 08:20 Labs: Laboratory Results - last 24 hr 08/14/17 08/14/17 08/15/17 15:27 20:05 00:02 WBC RBC Hgb Hct MCV MCH MCHC RDW Plt Count MPV Gran % Lymph % (Auto) [place] % (Auto) Eos % (Auto) Baso % (Auto) Gran # Lymph # [place] # Eos # Baso # Sodium Potassium Chloride Carbon Dioxide Anion Gap BUN Creatinine Est GFR ( Amer) Est GFR (Non-Af Amer) POC Glucose (mg/dL) 204 H 224 H 266 H Random Glucose Calcium Total Bilirubin AST ALT Alkaline Phosphatase Total Protein Albumin Globulin Albumin/Globulin Ratio 08/15/17 08/15/17 08/15/17 04:19 07:21 08:20 WBC 5.4 RBC 2.93 L Hgb 8.6 L Hct 26.8 L MCV 91.5 MCH 29.4 MCHC 32.1 RDW 14.2 Plt Count 204 MPV 9.2 Gran % 76.9 H Lymph % (Auto) 14.9 L [place] % (Auto) 6.3 H Eos % (Auto) 1.7 Baso % (Auto) 0.2 Gran # 4.13 Lymph # 0.8 L [place] # 0.3 Eos # 0.1 Baso # 0.01 Sodium Potassium Chloride Carbon Dioxide Anion Gap BUN Creatinine Est GFR ( Amer) Est GFR (Non-Af Amer) POC Glucose (mg/dL) 269 H 308 H Random Glucose Calcium Total Bilirubin AST ALT Alkaline Phosphatase Total Protein Albumin Globulin Albumin/Globulin Ratio 08/15/17 08/15/17 08:20 11:51 WBC RBC Hgb Hct MCV MCH MCHC RDW Plt Count MPV Gran % Lymph % (Auto) [place] % (Auto) Eos % (Auto) Baso % (Auto) Gran # Lymph # [place] # Eos # Baso # Sodium 139 Potassium 3.9 Chloride 97 L Carbon Dioxide 33 Anion Gap 13 BUN 18 Creatinine 0.6 Est GFR ( Amer) > 60 Est GFR (Non-Af Amer) > 60 POC Glucose (mg/dL) 230 H Random Glucose 260 H Calcium 9.5 Total Bilirubin 0.5 AST 35 ALT 46 Alkaline Phosphatase 95 Total Protein 6.3 Albumin 3.6 Globulin 2.6 Albumin/Globulin Ratio 1.4 Attending/Attestation - Attestation I have personally seen and examined this patient.: Yes I have fully participated in the care of the patient.: Yes I have reviewed all pertinent clinical information: Yes Notes (Text): 08/15/17 13:43 67 year old female history of metastatic uterine ca, HTN, DM, hemorrhagic cva with dysphagia in need of possible peg. 1. Dysphagia 2. Stroke Plan: -discussed the risks,benefits, and alternatives of PEG with the and daugther -they will discuss and let us know -in the meantime, NPO -nutrition via dobhoff -supportive measures
--- NOTE | 2017-08-15 14:05 | CP.PCM.PN ---
Subjective - Date & Time of Evaluation Date of Evaluation: 08/15/17 Time of Evaluation: 13:00 - Subjective Subjective: Lethargic, speech incoherent, follows simple commands. Objective - Vital Signs/Intake and Output Vital Signs (last 24 hours): Temp Pulse Resp BP Pulse Ox 97.3 F L 91 H 22 164/119 H 100 08/15/17 04:00 08/15/17 13:30 08/15/17 04:00 08/15/17 13:30 08/15/17 04:00 Intake and Output: 08/15/17 08/15/17 06:59 18:59 Intake Total 0 0 Balance 0 0 - Medications Medications: Current Medications Acetaminophen (Tylenol 650mg/20.3ml Solution Ud) 650 mg PO Q6H PRN PRN Reason: Headache Last Admin: 08/14/17 00:32 Dose: 650 mg Artificial Tears (Artificial Tears Opht Oint) 0 gm OU BID [facility] Last Admin: 08/15/17 09:19 Dose: 1 applic Baclofen (Lioresal) 20 mg PO HS [facility] Last Admin: 08/14/17 21:42 Dose: 20 mg Levetiracetam (Keppra 500mg Ivpb) 500 mg in 100 mls @ 460 mls/hr IVPB Q12 [facility] Last Admin: 08/15/17 09:19 Dose: 460 mls/hr Insulin Detemir (Levemir) 10 unit SC HS [facility] Insulin Human Lispro (Humalog High) 0 units SC Q4H [facility] PRN Reason: Protocol Last Admin: 08/15/17 12:58 Dose: 4 units Metoprolol Tartrate (Lopressor) 25 mg PO [facility] Nifedipine (Procardia) 10 mg PO Q8 [facility] Last Admin: 08/15/17 13:30 Dose: 10 mg Nystatin/Triamcinolone Acetonide (Nystatin/Triamcinolone Cream) 1 ea TOP BID PRN PRN Reason: Excoriation Last Admin: 08/09/17 09:48 Dose: 1 applic Pantoprazole Sodium (Protonix Inj) 40 mg IVP DAILY [facility] Last Admin: 08/15/17 09:19 Dose: 40 mg - Labs Labs: 08/15/17 08:20 08/15/17 08:20 PT 10.5 Seconds (9.9-11.8) 08/01/17 08:20 INR 0.97 (0.93-1.08) 08/01/17 08:20 APTT 27.3 Seconds (23.7-30.8) 08/01/17 08:20 - Constitutional Appears: Chronically Ill - Eye Exam Eye Exam: Normal appearance, PERRL - ENT Exam ENT Exam: Mucous Membranes Moist - Respiratory Exam Respiratory Exam: Decreased Breath Sounds, NORMAL BREATHING PATTERN - Cardiovascular Exam Cardiovascular Exam: REGULAR RHYTHM, +S1, +S2 - GI/Abdominal Exam GI & Abdominal Exam: Soft Additional comments: Dobhoff in place - Extremities Exam Additional comments: edematous - Neurological Exam Neurological Exam: Altered - Skin Skin Exam: Dry, Pallor Assessment and Plan - Assessment and Plan (Free Text) Assessment: 67 year old female with history of HTN,DM advanced uterine cancer, right parietal cystic mass s/p drainage who developed a frontoparietal hemorrhage with moderate edema and midline shift, respiratory failure s/p intubation,sepsis,SIRS and dysphagia. The patient was originally DNR/DNI when admitted to the ICU, but shortly after family rescinded this order. I met with and sons at that time to discuss goals of care. I explained that patient had very advanced cancer with multiple comorbidities. Support offered in establishing goals of care. Family very vocal that they do not want to hear about all the "gloom" and that everything should be done. Today I met with and son to discuss benefits and ramifications of PEG placement. I explained risks in patient's such as Ayah who have advanced cancer and multiple medical issues. states he understands, but is hesitant to make decision. He states he needs time to think and wants to discuss with the rest of his family. Goals of care discussion with family, 30 minutes. Plan: Goals of care/advance care planning Palliative support
--- NOTE | 2017-08-15 18:27 | CP.PCM.PN ---
Subjective - Date & Time of Evaluation Date of Evaluation: 08/10/17 Time of Evaluation: 15:00 - Subjective Subjective: Appears comfortable, less lethargic today Objective - Vital Signs/Intake and Output Vital Signs (last 24 hours): Temp Pulse Resp BP Pulse Ox 97.3 F L 96 H 22 133/74 100 08/15/17 04:00 08/15/17 17:23 08/15/17 04:00 08/15/17 17:23 08/15/17 04:00 Intake and Output: 08/15/17 08/15/17 06:59 18:59 Intake Total 0 0 Output Total 500 Balance 0 -500 - Medications Medications: Current Medications Acetaminophen (Tylenol 650mg/20.3ml Solution Ud) 650 mg PO Q6H PRN PRN Reason: Headache Last Admin: 08/14/17 00:32 Dose: 650 mg Artificial Tears (Artificial Tears Opht Oint) 0 gm OU BID [facility] Last Admin: 08/15/17 09:19 Dose: 1 applic Baclofen (Lioresal) 20 mg PO HS [facility] Last Admin: 08/14/17 21:42 Dose: 20 mg Levetiracetam (Keppra 500mg Ivpb) 500 mg in 100 mls @ 460 mls/hr IVPB Q12 [facility] Last Admin: 08/15/17 09:19 Dose: 460 mls/hr Insulin Detemir (Levemir) 10 unit SC HS [facility] Insulin Human Lispro (Humalog High) 0 units SC Q4H [facility] PRN Reason: Protocol Last Admin: 08/15/17 17:23 Dose: 4 units Metoprolol Tartrate (Lopressor) 25 mg PO BRKDIN [facility] Last Admin: 08/15/17 17:23 Dose: 25 mg Nifedipine (Procardia) 10 mg PO Q8 [facility] Last Admin: 08/15/17 13:30 Dose: 10 mg Nystatin/Triamcinolone Acetonide (Nystatin/Triamcinolone Cream) 1 ea TOP BID PRN PRN Reason: Excoriation Last Admin: 08/09/17 09:48 Dose: 1 applic Pantoprazole Sodium (Protonix Inj) 40 mg IVP DAILY [facility] Last Admin: 08/15/17 09:19 Dose: 40 mg - Labs Labs: 08/15/17 08:20 08/15/17 08:20 PT 10.5 Seconds (9.9-11.8) 08/01/17 08:20 INR 0.97 (0.93-1.08) 08/01/17 08:20 APTT 27.3 Seconds (23.7-30.8) 08/01/17 08:20 - Eye Exam Eye Exam: Normal appearance - ENT Exam ENT Exam: Mucous Membranes Dry - Respiratory Exam Respiratory Exam: NORMAL BREATHING PATTERN - Cardiovascular Exam Cardiovascular Exam: +S1, +S2 - GI/Abdominal Exam GI & Abdominal Exam: Normal Bowel Sounds Assessment and Plan (1) Uterine cancer Assessment & Plan: brain mets rad onc evaluated; possible radiotherapy when clinically improved Status: Acute (2) Anemia Assessment & Plan: chronic disease Status: Acute
--- NOTE | 2017-08-15 18:28 | CP.PCM.PN ---
Subjective - Date & Time of Evaluation Date of Evaluation: 08/11/17 Time of Evaluation: 12:00 - Subjective Subjective: lethargic but arousable Objective - Vital Signs/Intake and Output Vital Signs (last 24 hours): Temp Pulse Resp BP Pulse Ox 97.3 F L 96 H 22 133/74 100 08/15/17 04:00 08/15/17 17:23 08/15/17 04:00 08/15/17 17:23 08/15/17 04:00 Intake and Output: 08/15/17 08/15/17 06:59 18:59 Intake Total 0 0 Output Total 500 Balance 0 -500 - Medications Medications: Current Medications Acetaminophen (Tylenol 650mg/20.3ml Solution Ud) 650 mg PO Q6H PRN PRN Reason: Headache Last Admin: 08/14/17 00:32 Dose: 650 mg Artificial Tears (Artificial Tears Opht Oint) 0 gm OU BID [facility] Last Admin: 08/15/17 09:19 Dose: 1 applic Baclofen (Lioresal) 20 mg PO HS [facility] Last Admin: 08/14/17 21:42 Dose: 20 mg Levetiracetam (Keppra 500mg Ivpb) 500 mg in 100 mls @ 460 mls/hr IVPB Q12 [facility] Last Admin: 08/15/17 09:19 Dose: 460 mls/hr Insulin Detemir (Levemir) 10 unit SC HS [facility] Insulin Human Lispro (Humalog High) 0 units SC Q4H [facility] PRN Reason: Protocol Last Admin: 08/15/17 17:23 Dose: 4 units Metoprolol Tartrate (Lopressor) 25 mg PO BRKDIN [facility] Last Admin: 08/15/17 17:23 Dose: 25 mg Nifedipine (Procardia) 10 mg PO Q8 [facility] Last Admin: 08/15/17 13:30 Dose: 10 mg Nystatin/Triamcinolone Acetonide (Nystatin/Triamcinolone Cream) 1 ea TOP BID PRN PRN Reason: Excoriation Last Admin: 08/09/17 09:48 Dose: 1 applic Pantoprazole Sodium (Protonix Inj) 40 mg IVP DAILY [facility] Last Admin: 08/15/17 09:19 Dose: 40 mg - Labs Labs: 08/15/17 08:20 08/15/17 08:20 PT 10.5 Seconds (9.9-11.8) 08/01/17 08:20 INR 0.97 (0.93-1.08) 08/01/17 08:20 APTT 27.3 Seconds (23.7-30.8) 08/01/17 08:20 - Eye Exam Eye Exam: Normal appearance - ENT Exam ENT Exam: Mucous Membranes Dry - Respiratory Exam Respiratory Exam: NORMAL BREATHING PATTERN - Cardiovascular Exam Cardiovascular Exam: +S1, +S2 - GI/Abdominal Exam GI & Abdominal Exam: Normal Bowel Sounds Assessment and Plan (1) Uterine cancer Assessment & Plan: brain mets rad onc evaluated; possible radiotherapy when clinically improved Status: Acute (2) Anemia Assessment & Plan: chronic disease Status: Acute
--- NOTE | 2017-08-15 18:29 | CP.PCM.PN ---
Subjective - Date & Time of Evaluation Date of Evaluation: 08/12/17 Time of Evaluation: 16:35 - Subjective Subjective: Awake, appears comfortable Objective - Vital Signs/Intake and Output Vital Signs (last 24 hours): Temp Pulse Resp BP Pulse Ox 97.3 F L 96 H 22 133/74 100 08/15/17 04:00 08/15/17 17:23 08/15/17 04:00 08/15/17 17:23 08/15/17 04:00 Intake and Output: 08/15/17 08/15/17 06:59 18:59 Intake Total 0 0 Output Total 500 Balance 0 -500 - Medications Medications: Current Medications Acetaminophen (Tylenol 650mg/20.3ml Solution Ud) 650 mg PO Q6H PRN PRN Reason: Headache Last Admin: 08/14/17 00:32 Dose: 650 mg Artificial Tears (Artificial Tears Opht Oint) 0 gm OU BID [facility] Last Admin: 08/15/17 09:19 Dose: 1 applic Baclofen (Lioresal) 20 mg PO HS [facility] Last Admin: 08/14/17 21:42 Dose: 20 mg Levetiracetam (Keppra 500mg Ivpb) 500 mg in 100 mls @ 460 mls/hr IVPB Q12 [facility] Last Admin: 08/15/17 09:19 Dose: 460 mls/hr Insulin Detemir (Levemir) 10 unit SC HS [facility] Insulin Human Lispro (Humalog High) 0 units SC Q4H [facility] PRN Reason: Protocol Last Admin: 08/15/17 17:23 Dose: 4 units Metoprolol Tartrate (Lopressor) 25 mg PO BRKDIN [facility] Last Admin: 08/15/17 17:23 Dose: 25 mg Nifedipine (Procardia) 10 mg PO Q8 [facility] Last Admin: 08/15/17 13:30 Dose: 10 mg Nystatin/Triamcinolone Acetonide (Nystatin/Triamcinolone Cream) 1 ea TOP BID PRN PRN Reason: Excoriation Last Admin: 08/09/17 09:48 Dose: 1 applic Pantoprazole Sodium (Protonix Inj) 40 mg IVP DAILY [facility] Last Admin: 08/15/17 09:19 Dose: 40 mg - Labs Labs: 08/15/17 08:20 08/15/17 08:20 PT 10.5 Seconds (9.9-11.8) 08/01/17 08:20 INR 0.97 (0.93-1.08) 08/01/17 08:20 APTT 27.3 Seconds (23.7-30.8) 08/01/17 08:20 - Eye Exam Eye Exam: Normal appearance - ENT Exam ENT Exam: Mucous Membranes Dry - Respiratory Exam Respiratory Exam: NORMAL BREATHING PATTERN - Cardiovascular Exam Cardiovascular Exam: +S1, +S2 - GI/Abdominal Exam GI & Abdominal Exam: Normal Bowel Sounds Assessment and Plan (1) Uterine cancer Assessment & Plan: brain mets possible radiotherapy when clinically improved Status: Acute (2) Anemia Assessment & Plan: chronic disease Status: Acute
--- NOTE | 2017-08-15 18:31 | CP.PCM.PN ---
Subjective - Date & Time of Evaluation Date of Evaluation: 08/14/17 Time of Evaluation: 20:00 - Subjective Subjective: Awake, appears comfortable Objective - Vital Signs/Intake and Output Vital Signs (last 24 hours): Temp Pulse Resp BP Pulse Ox 97.3 F L 96 H 22 133/74 100 08/15/17 04:00 08/15/17 17:23 08/15/17 04:00 08/15/17 17:23 08/15/17 04:00 Intake and Output: 08/15/17 08/15/17 06:59 18:59 Intake Total 0 0 Output Total 500 Balance 0 -500 - Medications Medications: Current Medications Acetaminophen (Tylenol 650mg/20.3ml Solution Ud) 650 mg PO Q6H PRN PRN Reason: Headache Last Admin: 08/14/17 00:32 Dose: 650 mg Artificial Tears (Artificial Tears Opht Oint) 0 gm OU BID [facility] Last Admin: 08/15/17 09:19 Dose: 1 applic Baclofen (Lioresal) 20 mg PO HS [facility] Last Admin: 08/14/17 21:42 Dose: 20 mg Levetiracetam (Keppra 500mg Ivpb) 500 mg in 100 mls @ 460 mls/hr IVPB Q12 [facility] Last Admin: 08/15/17 09:19 Dose: 460 mls/hr Insulin Detemir (Levemir) 10 unit SC HS [facility] Insulin Human Lispro (Humalog High) 0 units SC Q4H [facility] PRN Reason: Protocol Last Admin: 08/15/17 17:23 Dose: 4 units Metoprolol Tartrate (Lopressor) 25 mg PO BRKDIN [facility] Last Admin: 08/15/17 17:23 Dose: 25 mg Nifedipine (Procardia) 10 mg PO Q8 [facility] Last Admin: 08/15/17 13:30 Dose: 10 mg Nystatin/Triamcinolone Acetonide (Nystatin/Triamcinolone Cream) 1 ea TOP BID PRN PRN Reason: Excoriation Last Admin: 08/09/17 09:48 Dose: 1 applic Pantoprazole Sodium (Protonix Inj) 40 mg IVP DAILY [facility] Last Admin: 08/15/17 09:19 Dose: 40 mg - Labs Labs: 08/15/17 08:20 08/15/17 08:20 PT 10.5 Seconds (9.9-11.8) 08/01/17 08:20 INR 0.97 (0.93-1.08) 08/01/17 08:20 APTT 27.3 Seconds (23.7-30.8) 08/01/17 08:20 - Eye Exam Eye Exam: Normal appearance - ENT Exam ENT Exam: Mucous Membranes Dry - Respiratory Exam Respiratory Exam: NORMAL BREATHING PATTERN - Cardiovascular Exam Cardiovascular Exam: +S1, +S2 - GI/Abdominal Exam GI & Abdominal Exam: Normal Bowel Sounds Assessment and Plan (1) Uterine cancer Assessment & Plan: with brain metastasis s/p neurosurgery radiotherapy reevaluation when more clinically stable Status: Acute (2) Anemia Assessment & Plan: chronic disease Status: Acute
--- NOTE | 2017-08-15 18:32 | CP.PCM.PN ---
Subjective - Date & Time of Evaluation Date of Evaluation: 08/15/17 Time of Evaluation: 17:15 - Subjective Subjective: Appears comfortable, has no complaints. Objective - Vital Signs/Intake and Output Vital Signs (last 24 hours): Temp Pulse Resp BP Pulse Ox 97.3 F L 96 H 22 133/74 100 08/15/17 04:00 08/15/17 17:23 08/15/17 04:00 08/15/17 17:23 08/15/17 04:00 Intake and Output: 08/15/17 08/15/17 06:59 18:59 Intake Total 0 0 Output Total 500 Balance 0 -500 - Medications Medications: Current Medications Acetaminophen (Tylenol 650mg/20.3ml Solution Ud) 650 mg PO Q6H PRN PRN Reason: Headache Last Admin: 08/14/17 00:32 Dose: 650 mg Artificial Tears (Artificial Tears Opht Oint) 0 gm OU BID [facility] Last Admin: 08/15/17 09:19 Dose: 1 applic Baclofen (Lioresal) 20 mg PO HS [facility] Last Admin: 08/14/17 21:42 Dose: 20 mg Levetiracetam (Keppra 500mg Ivpb) 500 mg in 100 mls @ 460 mls/hr IVPB Q12 [facility] Last Admin: 08/15/17 09:19 Dose: 460 mls/hr Insulin Detemir (Levemir) 10 unit SC HS [facility] Insulin Human Lispro (Humalog High) 0 units SC Q4H [facility] PRN Reason: Protocol Last Admin: 08/15/17 17:23 Dose: 4 units Metoprolol Tartrate (Lopressor) 25 mg PO BRKDIN [facility] Last Admin: 08/15/17 17:23 Dose: 25 mg Nifedipine (Procardia) 10 mg PO Q8 [facility] Last Admin: 08/15/17 13:30 Dose: 10 mg Nystatin/Triamcinolone Acetonide (Nystatin/Triamcinolone Cream) 1 ea TOP BID PRN PRN Reason: Excoriation Last Admin: 08/09/17 09:48 Dose: 1 applic Pantoprazole Sodium (Protonix Inj) 40 mg IVP DAILY [facility] Last Admin: 08/15/17 09:19 Dose: 40 mg - Labs Labs: 08/15/17 08:20 08/15/17 08:20 PT 10.5 Seconds (9.9-11.8) 08/01/17 08:20 INR 0.97 (0.93-1.08) 08/01/17 08:20 APTT 27.3 Seconds (23.7-30.8) 08/01/17 08:20 - Eye Exam Eye Exam: Normal appearance - ENT Exam ENT Exam: Mucous Membranes Dry - Respiratory Exam Respiratory Exam: NORMAL BREATHING PATTERN - Cardiovascular Exam Cardiovascular Exam: +S1, +S2 - GI/Abdominal Exam GI & Abdominal Exam: Normal Bowel Sounds Assessment and Plan (1) Uterine cancer Assessment & Plan: with brain metastasis s/p neurosurgery radiotherapy reevaluation when more clinically stable Status: Acute (2) Anemia Assessment & Plan: chronic disease Status: Acute
--- NOTE | 2017-08-15 19:24 | CP.PCM.PN ---
Subjective - Date & Time of Evaluation Date of Evaluation: 08/15/17 Time of Evaluation: 17:30 - Subjective Subjective: Infectious Disease Follow Up: August 15, 2017 73 yo female presented with fall and altered mental status. She was found at home on floor by family who heard her fall. The patient was brought into the ER and found to be in uncontrolled hypertension and requiring intubation on arrival in the ER. The patient was found to hae a 4.4 cm left occipital intracranial hemorrhage with intraventricular extension. Patient is recovering but still having episodes of low grade fevers. Patient herself is not making any new complaints. She still has residual right sided weakness. Afebrile in the past 48 hours. Repeat cultures sent. Cannot rule out central fever. Cultures negative to date from sets taken on 07/28/2017 and 07/29/2017. She was extubated 08/04/2017. Patient opens her eyes and can follow an occasional command such as squeezing hand. Noted family has rescinded DNR/DNI. Noted Radiation Oncology considering palliative radiation if the patient shows some reasonable improvement during this hospitalization. Blood cultures with coagulase negative staph which is most likely contamination. Patient can occasional commands. No new issues. Antibiotics completed. Poorly responsive. On occasion follows commands. Noted that she failed swallow studies and required NG tube to be placed again. Seen by palliative care. Objective - Vital Signs/Intake and Output Vital Signs (last 24 hours): Temp Pulse Resp BP Pulse Ox 97.3 F L 96 H 22 133/74 100 08/15/17 04:00 08/15/17 17:23 08/15/17 04:00 08/15/17 17:23 08/15/17 04:00 Intake and Output: 08/15/17 08/16/17 18:59 06:59 Intake Total 0 Output Total 500 Balance -500 - Medications Medications: Current Medications Acetaminophen (Tylenol 650mg/20.3ml Solution Ud) 650 mg PO Q6H PRN PRN Reason: Headache Last Admin: 08/14/17 00:32 Dose: 650 mg Artificial Tears (Artificial Tears Opht Oint) 0 gm OU BID [facility] Last Admin: 08/15/17 09:19 Dose: 1 applic Baclofen (Lioresal) 20 mg PO HS [facility] Last Admin: 08/14/17 21:42 Dose: 20 mg Levetiracetam (Keppra 500mg Ivpb) 500 mg in 100 mls @ 460 mls/hr IVPB Q12 [facility] Last Admin: 08/15/17 09:19 Dose: 460 mls/hr Insulin Detemir (Levemir) 10 unit SC HS [facility] Insulin Human Lispro (Humalog High) 0 units SC Q4H [facility] PRN Reason: Protocol Last Admin: 08/15/17 17:23 Dose: 4 units Metoprolol Tartrate (Lopressor) 25 mg PO BRKDIN [facility] Last Admin: 08/15/17 17:23 Dose: 25 mg Nifedipine (Procardia) 10 mg PO Q8 [facility] Last Admin: 08/15/17 13:30 Dose: 10 mg Nystatin/Triamcinolone Acetonide (Nystatin/Triamcinolone Cream) 1 ea TOP BID PRN PRN Reason: Excoriation Last Admin: 08/09/17 09:48 Dose: 1 applic Pantoprazole Sodium (Protonix Inj) 40 mg IVP DAILY [facility] Last Admin: 08/15/17 09:19 Dose: 40 mg - Labs Labs: 08/15/17 08:20 08/15/17 08:20 PT 10.5 Seconds (9.9-11.8) 08/01/17 08:20 INR 0.97 (0.93-1.08) 08/01/17 08:20 APTT 27.3 Seconds (23.7-30.8) 08/01/17 08:20 - Constitutional Appears: Non-toxic, No Acute Distress, Chronically Ill - Head Exam Head Exam: ATRAUMATIC, NORMOCEPHALIC - Eye Exam Eye Exam: EOMI, PERRL Pupil Exam: NORMAL ACCOMODATION, PERRL - ENT Exam ENT Exam: Mucous Membranes Moist, Normal External Ear Exam, TM's Normal Bilaterally - Neck Exam Neck Exam: Full ROM, Normal Inspection - Respiratory Exam Respiratory Exam: Clear to Ausculation Bilateral, NORMAL BREATHING PATTERN. absent: Rales, Rhonchi, Wheezes - Cardiovascular Exam Cardiovascular Exam: REGULAR RHYTHM, RRR, +S1, +S2 - GI/Abdominal Exam GI & Abdominal Exam: Soft, Normal Bowel Sounds. absent: Distended, Tenderness - Extremities Exam Extremities Exam: Joint Swelling, Pedal Edema - Neurological Exam Neurological Exam: Alert, Awake Additional comments: AAO x 0, lethargic, left neglect - Psychiatric Exam Additional comments: Unable to fully assess. - Skin Skin Exam: Intact, Normal Color Assessment and Plan - Assessment and Plan (Free Text) Assessment: 73 yo female with low grade fevers of up to 100.4 F after suffering from a 4.4cm left occipital intracranial hemorrhage with intraventricular extension. The patient initially had fevers up to 101.7 F. Clinically, the patient has been improving. Supportive care. She was intubated on admission. She was extubated on 07/25/2017. She speaks ghanaian mostly. The family states that the patient is acting and speaking appropriately other than the slurring of speech due to her right sided residual weakness. Alfredo cultures sent. There was a mild initial leukocytosis on admission but this has slowly improved. Fever trend has shown improvement. The cultures done to date have been negative so far. No consolidation seen on Chest X-ray. Patient answering question during interview and examination. Supportive care. Currently on Unasyn for antibiotic coverage. Noted C. Diff and repeat urine culture sent. No adequate sample for C. diff testing. Would obtain urinalysis. Would continue Unasyn for now. The current temperature is more likely secondary to the recent intracranial hemorrhage. No Leukocytosis with WBC of 5.4 on 08/15/2017. Multiple culture sets performed to date are negative. Afebrile for the past 48 hours now. Cultures negative to date at greater than 48 hours. Cannot rule out central fever which is the most likely scenario. It appears as the hemorrhage improves the fevers are improving. The patient still with residual right sided weakness. Last CT done on 07/30/2017 showing interval evolution of known subacute hematoma in left occipital lobe without midline shift or herniation. Resolving intraventricular hemorrhage with residual mild intraventricular hemorrhage. Antibiotics completed. Extubated 08/04/2017. Able to follow occasional simple command. Supportive care. Poor alf prognosis given Uterine cancer with brain metastasis and the recent hemorrhagic CVA. No new infectious disease issues. Difficulty with feeds. NG tube had to be replaced and patient made NPO before NG tube placement. Patient dislodged NG tube a night ago. The patient is lethargic. On occasion follows commands. Thank you for allowing me to participate in the care of the patient, we will follow with you.
[2017-08-15] MEDS: Insulin Detemir 100 units/ml Vial (Levemir) SC SCH (22:18)
[2017-08-16] MEDS: Insulin Lispro (HUMAlog) HIGH Coverage SC SCH ×7 (03:51→21:00)
[2017-08-16 08:27] LABS: BASO # 0.01 K/mm3 (0.0-2.0); BASO % 0.2 % (0.0-3.0); EOS # 0.2 (0.0-0.7); EOS % 2.7 % (1.5-5.0); GRAN # 4.26 (1.4-6.5); GRAN % 76.5 % (50.0-68.0); HEMATOCRIT 28.3 % (36.0-48.0); LYMPH # 0.8 (1.2-3.4); LYMPH % 14.7 % (22.0-35.0); MEAN CELL VOLUME 90.4 fl (80.0-105.0); MEAN CORPUSCULAR HEMOGLOBIN 28.8 pg (25.0-35.0); MEAN CORPUSCULAR HGB CONC 31.8 g/dl (31.0-37.0); MEAN PLATELET VOLUME 9.4 fl (7.0-11.0); MONO # 0.3 (0.1-0.6); MONO % 5.9 % (1.0-6.0); RED CELL DISTRIBUTION WIDTH 14.5 % (11.5-14.5); WHITE BLOOD COUNT 5.6 10^3/ul (4.5-11.0)
[2017-08-16 08:28] LABS: ALB/GLOB RATIO 1.3 (1.1-1.8); ALKALINE PHOSPHATASE 106 U/L (38-126); ALT/SGPT 43 U/L (7-56); AST/SGOT 35 U/L (14-36); BILIRUBIN,TOTAL 0.7 mg/dL (0.2-1.3); BLOOD UREA NITROGEN 17 mg/dL (7-21); CALCIUM 9.6 mg/dL (8.4-10.5); CARBON DIOXIDE 35 mmol/L (21-33); CHLORIDE 97 mmol/L (98-107); GFR AFRICAN-AMERICAN > 60; GLUCOSE,RANDOM 229 mg/dL (70-110); POTASSIUM 3.9 mmol/L (3.6-5.0); SODIUM 138 mmol/L (132-148); TOTAL PROTEIN 6.7 g/dL (5.8-8.3)
[2017-08-16] MEDS: Mineral Oil/Petrolatum Opht Oint(3.5 gm) OU SCH (10:10)
[2017-08-16] MEDS: levETIRAcetam 500mg IVPB 500 MG/100 ML BAG IVPB SCH (10:12)
--- NOTE | 2017-08-16 11:33 | CP.PCM.PN ---
<Alecia Pichardo - Last Filed: 08/16/17 15:50> Subjective - Date & Time of Evaluation Date of Evaluation: 08/16/17 Time of Evaluation: 10:00 - Subjective Subjective: PGY 4 GI Follow-up Pt seen and examined bedside Opens eyes, no meaningful communication as per RN, no acute overnight events Still getting feeds through NG ROS: could not be conducted due to pt's AMS Objective - Vital Signs/Intake and Output Vital Signs (last 24 hours): Temp Pulse Resp BP Pulse Ox 98.3 F 70 17 145/74 100 08/16/17 06:00 08/16/17 09:06 08/16/17 06:00 08/16/17 09:06 08/16/17 06:00 Intake and Output: 08/16/17 08/16/17 06:59 18:59 Intake Total 700 0 Output Total 500 Balance 200 0 - Medications Medications: Current Medications Acetaminophen (Tylenol 650mg/20.3ml Solution Ud) 650 mg PO Q6H PRN PRN Reason: Headache Last Admin: 08/14/17 00:32 Dose: 650 mg Artificial Tears (Artificial Tears Opht Oint) 0 gm OU BID [facility] Last Admin: 08/16/17 10:10 Dose: 1 applic Baclofen (Lioresal) 20 mg PO HS [facility] Last Admin: 08/15/17 22:19 Dose: 20 mg Insulin Detemir (Levemir) 10 unit SC HS [facility] Last Admin: 08/15/17 22:18 Dose: 10 unit Insulin Human Lispro (Humalog High) 0 units SC Q4H [facility] PRN Reason: Protocol Last Admin: 08/16/17 09:11 Dose: 4 units Metoprolol Tartrate (Lopressor) 25 mg PO BRKDIN [facility] Last Admin: 08/16/17 09:06 Dose: 25 mg Nifedipine (Procardia) 10 mg PO Q8 [facility] Last Admin: 08/16/17 06:44 Dose: 10 mg Nystatin/Triamcinolone Acetonide (Nystatin/Triamcinolone Cream) 1 ea TOP BID PRN PRN Reason: Excoriation Last Admin: 08/09/17 09:48 Dose: 1 applic - Labs Labs: 08/16/17 08:00 08/16/17 08:00 PT 10.5 Seconds (9.9-11.8) 08/01/17 08:20 INR 0.97 (0.93-1.08) 08/01/17 08:20 APTT 27.3 Seconds (23.7-30.8) 08/01/17 08:20 - Constitutional Appears: No Acute Distress, Chronically Ill - Head Exam Additional comments: right parietal incision with old sahara, clean and intact - Eye Exam Eye Exam: Normal appearance - ENT Exam ENT Exam: Mucous Membranes Moist, Normal Exam - Respiratory Exam Respiratory Exam: Clear to Ausculation Bilateral, NORMAL BREATHING PATTERN. absent: Rales, Rhonchi, Wheezes - Cardiovascular Exam Cardiovascular Exam: REGULAR RHYTHM, +S1, +S2 - GI/Abdominal Exam GI & Abdominal Exam: Soft, Normal Bowel Sounds. absent: Firm, Guarding, Rigid, Tenderness, Organomegaly Additional comments: obese - Extremities Exam Extremities Exam: absent: Joint Swelling, Pedal Edema - Neurological Exam Neurological Exam: Altered. absent: Normal Gait, Oriented x3 - Psychiatric Exam Additional comments: cannot assess due to AMS - Skin Skin Exam: Dry, Intact, Normal Color, Warm Assessment and Plan - Assessment and Plan (Free Text) Assessment: Ayah Guillen is a 67F w/ hx of met uterine ca, HTN, and DM who presents with hemorrhagic CVA. Pt is awake, but does not have any meaningful interaction. She has failed many swallow eval likely 2/2 CVA 1. Dysphagia 2/2 CVA 2. Aspiration risk 3. Frontoparietal hemorrhagic CVA Plan: -Palliative care rec appreciated -Family is still undecided about PEG -continue feeds VIA NG, keep NPO -Feeds as per nutrition -waiting on to arrive -discussed the pt's current condition and need to PEG yesterday -risk and benefits explained to the family -will sign off for now, please reconsult if family wants to pursue a PEG Will D/W Dr. Sweeney <Girogio Sweeney - Last Filed: 08/16/17 16:15> Objective - Vital Signs/Intake and Output Vital Signs (last 24 hours): Temp Pulse Resp BP Pulse Ox 98.3 F 70 17 145/74 100 08/16/17 06:00 08/16/17 09:06 08/16/17 06:00 08/16/17 09:06 08/16/17 06:00 Intake and Output: 08/16/17 08/16/17 06:59 18:59 Intake Total 700 0 Output Total 500 Balance 200 0 - Medications Medications: Current Medications Acetaminophen (Tylenol 650mg/20.3ml Solution Ud) 650 mg PO Q6H PRN PRN Reason: Headache Last Admin: 08/16/17 15:02 Dose: 650 mg Artificial Tears (Artificial Tears Opht Oint) 0 gm OU BID [facility] Last Admin: 08/16/17 10:10 Dose: 1 applic Baclofen (Lioresal) 20 mg PO HS [facility] Last Admin: 08/15/17 22:19 Dose: 20 mg Insulin Detemir (Levemir) 10 unit SC HS [facility] Last Admin: 08/15/17 22:18 Dose: 10 unit Insulin Human Lispro (Humalog High) 0 units SC Q4H [facility] PRN Reason: Protocol Last Admin: 08/16/17 09:11 Dose: 4 units Metoprolol Tartrate (Lopressor) 25 mg PO BRKDIN [facility] Last Admin: 08/16/17 09:06 Dose: 25 mg Nifedipine (Procardia) 10 mg PO Q8 [facility] Last Admin: 08/16/17 14:58 Dose: 10 mg Nystatin/Triamcinolone Acetonide (Nystatin/Triamcinolone Cream) 1 ea TOP BID PRN PRN Reason: Excoriation Last Admin: 08/09/17 09:48 Dose: 1 applic - Labs Labs: 08/16/17 08:00 08/16/17 08:00 PT 10.5 Seconds (9.9-11.8) 08/01/17 08:20 INR 0.97 (0.93-1.08) 08/01/17 08:20 APTT 27.3 Seconds (23.7-30.8) 08/01/17 08:20 Attending/Attestation - Attestation I have personally seen and examined this patient.: Yes I have fully participated in the care of the patient.: Yes I have reviewed all pertinent clinical information, including history, physical exam and plan: Yes Notes (Text): 08/16/17 16:15 67 year old female history of metastatic uterine ca, HTN, DM, hemorrhagic cva with dysphagia in need of possible peg. 1. Dysphagia 2. Stroke Plan: -discussed the risks,benefits, and alternatives of PEG with the and daugther -they will discuss and let us know -in the meantime, NPO -nutrition via dobhoff -supportive measures
--- NOTE | 2017-08-16 13:58 | CP.PCM.PN ---
Subjective - Date & Time of Evaluation Date of Evaluation: 08/16/17 Time of Evaluation: 11:30 - Subjective Subjective: Infectious Disease Follow Up: August 16, 2017 73 yo female presented with fall and altered mental status. She was found at home on floor by family who heard her fall. The patient was brought into the ER and found to be in uncontrolled hypertension and requiring intubation on arrival in the ER. The patient was found to hae a 4.4 cm left occipital intracranial hemorrhage with intraventricular extension. Patient is recovering but still having episodes of low grade fevers. Patient herself is not making any new complaints. She still has residual right sided weakness. Afebrile in the past 48 hours. Repeat cultures sent. Cannot rule out central fever. Cultures negative to date from sets taken on 07/28/2017 and 07/29/2017. She was extubated 08/04/2017. Patient opens her eyes and can follow an occasional command such as squeezing hand. Noted family has rescinded DNR/DNI. Noted Radiation Oncology considering palliative radiation if the patient shows some reasonable improvement during this hospitalization. Blood cultures with coagulase negative staph which is most likely contamination. Patient can occasional commands. No new issues. Antibiotics completed. Poorly responsive. On occasion follows commands. Noted that she failed swallow studies and required NG tube to be placed again. Seen by palliative care. Objective - Vital Signs/Intake and Output Vital Signs (last 24 hours): Temp Pulse Resp BP Pulse Ox 98.3 F 70 17 145/74 100 08/16/17 06:00 08/16/17 09:06 08/16/17 06:00 08/16/17 09:06 08/16/17 06:00 Intake and Output: 08/16/17 08/16/17 06:59 18:59 Intake Total 700 0 Output Total 500 Balance 200 0 - Medications Medications: Current Medications Acetaminophen (Tylenol 650mg/20.3ml Solution Ud) 650 mg PO Q6H PRN PRN Reason: Headache Last Admin: 08/14/17 00:32 Dose: 650 mg Artificial Tears (Artificial Tears Opht Oint) 0 gm OU BID [facility] Last Admin: 08/16/17 10:10 Dose: 1 applic Baclofen (Lioresal) 20 mg PO HS [facility] Last Admin: 08/15/17 22:19 Dose: 20 mg Insulin Detemir (Levemir) 10 unit SC HS [facility] Last Admin: 08/15/17 22:18 Dose: 10 unit Insulin Human Lispro (Humalog High) 0 units SC Q4H [facility] PRN Reason: Protocol Last Admin: 08/16/17 09:11 Dose: 4 units Metoprolol Tartrate (Lopressor) 25 mg PO BRKDIN [facility] Last Admin: 08/16/17 09:06 Dose: 25 mg Nifedipine (Procardia) 10 mg PO Q8 [facility] Last Admin: 08/16/17 06:44 Dose: 10 mg Nystatin/Triamcinolone Acetonide (Nystatin/Triamcinolone Cream) 1 ea TOP BID PRN PRN Reason: Excoriation Last Admin: 08/09/17 09:48 Dose: 1 applic - Labs Labs: 08/16/17 08:00 08/16/17 08:00 PT 10.5 Seconds (9.9-11.8) 08/01/17 08:20 INR 0.97 (0.93-1.08) 08/01/17 08:20 APTT 27.3 Seconds (23.7-30.8) 08/01/17 08:20 - Constitutional Appears: Non-toxic, No Acute Distress, Chronically Ill - Head Exam Head Exam: ATRAUMATIC, NORMOCEPHALIC - Eye Exam Eye Exam: EOMI, PERRL Pupil Exam: NORMAL ACCOMODATION, PERRL - ENT Exam ENT Exam: Mucous Membranes Moist, Normal External Ear Exam, TM's Normal Bilaterally - Neck Exam Neck Exam: Full ROM, Normal Inspection - Respiratory Exam Respiratory Exam: Clear to Ausculation Bilateral, NORMAL BREATHING PATTERN. absent: Rales, Rhonchi, Wheezes - Cardiovascular Exam Cardiovascular Exam: REGULAR RHYTHM, RRR, +S1, +S2 - GI/Abdominal Exam GI & Abdominal Exam: Soft, Normal Bowel Sounds. absent: Distended, Tenderness - Extremities Exam Extremities Exam: Full ROM, Normal Inspection - Neurological Exam Neurological Exam: Alert, Awake Additional comments: AAO x 0, lethargic, left neglect - Psychiatric Exam Additional comments: Unable to fully assess. - Skin Skin Exam: Intact, Normal Color Assessment and Plan - Assessment and Plan (Free Text) Assessment: 73 yo female with low grade fevers of up to 100.4 F after suffering from a 4.4cm left occipital intracranial hemorrhage with intraventricular extension. The patient initially had fevers up to 101.7 F. Clinically, the patient has been improving. Supportive care. She was intubated on admission. She was extubated on 07/25/2017. She speaks qatari mostly. The family states that the patient is acting and speaking appropriately other than the slurring of speech due to her right sided residual weakness. Alfredo cultures sent. There was a mild initial leukocytosis on admission but this has slowly improved. Fever trend has shown improvement. The cultures done to date have been negative so far. No consolidation seen on Chest X-ray. Patient answering question during interview and examination. Supportive care. Currently on Unasyn for antibiotic coverage. Noted C. Diff and repeat urine culture sent. No adequate sample for C. diff testing. Would obtain urinalysis. Would continue Unasyn for now. The current temperature is more likely secondary to the recent intracranial hemorrhage. No Leukocytosis with WBC of 5.4 on 08/15/2017. Multiple culture sets performed to date are negative. Afebrile for the past 48 hours now. Cultures negative to date at greater than 48 hours. Cannot rule out central fever which is the most likely scenario. It appears as the hemorrhage improves the fevers are improving. The patient still with residual right sided weakness. Last CT done on 07/30/2017 showing interval evolution of known subacute hematoma in left occipital lobe without midline shift or herniation. Resolving intraventricular hemorrhage with residual mild intraventricular hemorrhage. Antibiotics completed. Extubated 08/04/2017. Able to follow occasional simple command. Supportive care. Poor [facility] prognosis given Uterine cancer with brain metastasis and the recent hemorrhagic CVA. No new infectious disease issues. Difficulty with feeds. NG tube had to be replaced and patient made NPO before NG tube placement. Patient dislodged NG tube a night ago. The patient is lethargic. On rare occasions follows commands. No new issues. Thank you for allowing me to participate in the care of the patient, we will follow with you.
--- NOTE | 2017-08-16 13:58 | CP.PCM.PN ---
<Mode Loera - Last Filed: 08/16/17 17:29> Subjective - Date & Time of Evaluation Date of Evaluation: 08/16/17 Time of Evaluation: 10:55 - Subjective Subjective: Patient was seen and examined at bedside this morning. Per nursing no overnight events occurred. The patient was able to respond and follow simple commands this morning. The remainder of ROS unobtainable due to patient's clinical condition. Objective - Vital Signs/Intake and Output Vital Signs (last 24 hours): Temp Pulse Resp BP Pulse Ox 98.3 F 70 17 145/74 100 08/16/17 06:00 08/16/17 09:06 08/16/17 06:00 08/16/17 09:06 08/16/17 06:00 Intake and Output: 08/16/17 08/16/17 06:59 18:59 Intake Total 700 0 Output Total 500 Balance 200 0 - Medications Medications: Current Medications Acetaminophen (Tylenol 650mg/20.3ml Solution Ud) 650 mg PO Q6H PRN PRN Reason: Headache Last Admin: 08/14/17 00:32 Dose: 650 mg Artificial Tears (Artificial Tears Opht Oint) 0 gm OU BID [facility] Last Admin: 08/16/17 10:10 Dose: 1 applic Baclofen (Lioresal) 20 mg PO HS [facility] Last Admin: 08/15/17 22:19 Dose: 20 mg Insulin Detemir (Levemir) 10 unit SC HS [facility] Last Admin: 08/15/17 22:18 Dose: 10 unit Insulin Human Lispro (Humalog High) 0 units SC Q4H [facility] PRN Reason: Protocol Last Admin: 08/16/17 09:11 Dose: 4 units Metoprolol Tartrate (Lopressor) 25 mg PO BRKDIN [facility] Last Admin: 08/16/17 09:06 Dose: 25 mg Nifedipine (Procardia) 10 mg PO Q8 [facility] Last Admin: 08/16/17 06:44 Dose: 10 mg Nystatin/Triamcinolone Acetonide (Nystatin/Triamcinolone Cream) 1 ea TOP BID PRN PRN Reason: Excoriation Last Admin: 08/09/17 09:48 Dose: 1 applic - Labs Labs: 08/16/17 08:00 08/16/17 08:00 PT 10.5 Seconds (9.9-11.8) 08/01/17 08:20 INR 0.97 (0.93-1.08) 08/01/17 08:20 APTT 27.3 Seconds (23.7-30.8) 08/01/17 08:20 - Head Exam Head Exam: ATRAUMATIC, NORMAL INSPECTION, NORMOCEPHALIC - Eye Exam Eye Exam: EOMI, Normal appearance, PERRL. absent: Periorbital tenderness Pupil Exam: PERRL. absent: Irregular, Miosis, NORMAL ACCOMODATION, Unequal - ENT Exam ENT Exam: Mucous Membranes Moist, Normal Exam - Neck Exam Neck Exam: absent: Full ROM - Respiratory Exam Respiratory Exam: Clear to Ausculation Bilateral, NORMAL BREATHING PATTERN. absent: Accessory Muscle Use, Chest Wall Tenderness, Respiratory Distress - Cardiovascular Exam Cardiovascular Exam: REGULAR RHYTHM, RRR, +S1, +S2. absent: Gallop, Rubs - GI/Abdominal Exam GI & Abdominal Exam: Soft, Normal Bowel Sounds. absent: Firm, Guarding, Rigid, Tenderness - Extremities Exam Extremities Exam: Pedal Edema. absent: Full ROM, Tenderness Additional comments: Decreased LE motion (R>L). - Neurological Exam Neurological Exam: Awake, Motor Sensory Deficit. absent: CN II-XII Intact, Oriented x3, Reflexes Normal - Skin Skin Exam: Dry Assessment and Plan - Assessment and Plan (Free Text) Assessment: 67 y/o F with PMHx of Uterine CA s/p chemo/radiation and s/p total hysterectomy w/ bilateral salpingooopherectomy, DM, HTN, HLD presents with hemorrhagic CVA with midline shift, s/p decompressive craniotomy on 07/25/17. Patient unable to comprehend need for feeding tube and continues to exhibit pulling. Will place soft wrist restraint for right upper extremity. Plan: 1. Frontoparietal hemorrhagic CVA -Neurosurgery: No further surgical intervention -Nursing staff to discuss case with neurosurgery for scalp staple/suture recs. ( When cleared to remove) Awaiting recs. -Neurology signed off at this time -Maintain tight blood pressure control. BP med -Continue Keppra for seizure ppx -Continue NPO -Continue aspiration precautions -Replaced feeding tube today. CXR with tube in stomach. -Continue Soft wrist restraints due to pulling. Reassess need tomorrow in the morning. -Continue Tube feeds. -Speech Language recs appreciated: continue tube feeds. -F/u with family about peg tube. 2. Repetitive Right hand "flapping" movements -Patient in soft restraints for the right hand. Will continue to monitor closely. -continue current treatment -discussed with Neurology, may be due to sequela of neuro disease -continue to monitor 3. Uterine CA. S/p neurosurg bx -Heme/Onc following -Radiation Onc recommends further therapy once stable as outpatient. -Will f/u with rec's with heme-onc tomorrow. 4. Bacteremia -No leukocytosis present. -previous Blood cultures with possible contaminant -ID following -Repeat Blood Cxs with no growth -Abx stopped 5. Hx of DM -Continue Accuchecks -ISS high dose -On Levemir 10U SC HS. Will monitor closely. -Continue to monitor 6. Hx of HTN -maintain tight blood pressure control. Continue to watch closely. 7. PPx -Continue Protonix -Continue SCDs <Roly Mays - Last Filed: 08/18/17 16:45> Objective - Vital Signs/Intake and Output Vital Signs (last 24 hours): Temp Pulse Resp BP Pulse Ox 98.3 F 104 H 19 159/79 H 98 08/18/17 16:38 08/18/17 16:38 08/18/17 16:38 08/18/17 16:38 08/18/17 16:38 Intake and Output: 08/18/17 08/18/17 06:59 18:59 Intake Total 0 0 Balance 0 0 - Medications Medications: Current Medications Acetaminophen (Tylenol 650mg/20.3ml Solution Ud) 650 mg PO Q6H PRN PRN Reason: Headache Last Admin: 08/17/17 16:04 Dose: 650 mg Artificial Tears (Artificial Tears Opht Oint) 0 gm OU BID [facility] Last Admin: 08/18/17 10:18 Dose: 1 applic Baclofen (Lioresal) 20 mg PO HS [facility] Last Admin: 08/17/17 21:56 Dose: 20 mg Levetiracetam (Keppra 500mg Ivpb) 500 mg in 100 mls @ 400 mls/hr IVPB Q12 [facility] Last Admin: 08/18/17 10:18 Dose: 400 mls/hr Dextrose/Sodium Chloride (Dextrose 5%/0.45% Ns 1000 Ml) 1,000 mls @ 80 mls/hr IV .[id number] [facility] Last Admin: 08/18/17 16:17 Dose: 80 mls/hr Insulin Detemir (Levemir) 10 unit SC HS [facility] Last Admin: 08/17/17 21:55 Dose: 10 unit Insulin Human Lispro (Humalog High) 0 units SC Q4H [facility] PRN Reason: Protocol Stop: 08/25/17 00:01 Last Admin: 08/18/17 16:16 Dose: Not Given Metoprolol Tartrate (Lopressor) 50 mg PO BRKDIN [facility] Last Admin: 08/18/17 16:16 Dose: 50 mg Nifedipine (Procardia) 10 mg PO Q8 [facility] Last Admin: 08/18/17 15:00 Dose: 10 mg Ondansetron HCl (Zofran Inj) 4 mg IVP Q4H PRN PRN Reason: Nausea/Vomiting - Labs Labs: 08/18/17 11:59 08/18/17 11:59 PT 10.6 Seconds (9.9-11.8) 08/17/17 17:22 INR 0.98 (0.93-1.08) 08/17/17 17:22 APTT 27.3 Seconds (23.7-30.8) 08/01/17 08:20 Attending/Attestation - Attestation I have personally seen and examined this patient.: Yes I have fully participated in the care of the patient.: Yes I have reviewed all pertinent clinical information, including history, physical exam and plan: Yes Notes (Text): 08/18/17 16:44 Patient was seen and examined with certified ophthalmic medical technician. 67 year old female with PMH of uterine cancer, hypertension, diabetes, dyslipidemia and history of right parietal mass s/p recent craniotomy/biopsy was admitted with altered mental status. She was found to have hemorrhagic CVA with significant midline shift. She was seen by neurology and neurosurgery , no plan for intervention. Pathology report showed metastatic uterine cancer. Hem/Onc and Rad/Onc recommended possible radiation treatment once patient is stable. Patient mental status is poor.There is no new focal deficit.Patient has failed swallow evaluation,awaiting for family to make decision Prognosis is guarded.
--- NOTE | 2017-08-16 14:14 | CP.PCM.PN ---
Subjective - Date & Time of Evaluation Date of Evaluation: 08/16/17 Time of Evaluation: 13:00 - Subjective Subjective: Lethargic, opens eyes, non verbal. Objective - Vital Signs/Intake and Output Vital Signs (last 24 hours): Temp Pulse Resp BP Pulse Ox 98.3 F 70 17 145/74 100 08/16/17 06:00 08/16/17 09:06 08/16/17 06:00 08/16/17 09:06 08/16/17 06:00 Intake and Output: 08/16/17 08/16/17 06:59 18:59 Intake Total 700 0 Output Total 500 Balance 200 0 - Medications Medications: Current Medications Acetaminophen (Tylenol 650mg/20.3ml Solution Ud) 650 mg PO Q6H PRN PRN Reason: Headache Last Admin: 08/14/17 00:32 Dose: 650 mg Artificial Tears (Artificial Tears Opht Oint) 0 gm OU BID [facility] Last Admin: 08/16/17 10:10 Dose: 1 applic Baclofen (Lioresal) 20 mg PO HS [facility] Last Admin: 08/15/17 22:19 Dose: 20 mg Insulin Detemir (Levemir) 10 unit SC HS [facility] Last Admin: 08/15/17 22:18 Dose: 10 unit Insulin Human Lispro (Humalog High) 0 units SC Q4H [facility] PRN Reason: Protocol Last Admin: 08/16/17 09:11 Dose: 4 units Metoprolol Tartrate (Lopressor) 25 mg PO BRKDIN [facility] Last Admin: 08/16/17 09:06 Dose: 25 mg Nifedipine (Procardia) 10 mg PO Q8 [facility] Last Admin: 08/16/17 06:44 Dose: 10 mg Nystatin/Triamcinolone Acetonide (Nystatin/Triamcinolone Cream) 1 ea TOP BID PRN PRN Reason: Excoriation Last Admin: 08/09/17 09:48 Dose: 1 applic - Labs Labs: 08/16/17 08:00 08/16/17 08:00 PT 10.5 Seconds (9.9-11.8) 08/01/17 08:20 INR 0.97 (0.93-1.08) 08/01/17 08:20 APTT 27.3 Seconds (23.7-30.8) 08/01/17 08:20 - Constitutional Appears: Chronically Ill - Head Exam Head Exam: NORMAL INSPECTION - Eye Exam Eye Exam: Normal appearance Pupil Exam: NORMAL ACCOMODATION - ENT Exam ENT Exam: Mucous Membranes Moist - Neck Exam Neck Exam: Normal Inspection - Respiratory Exam Respiratory Exam: Decreased Breath Sounds, NORMAL BREATHING PATTERN - Cardiovascular Exam Cardiovascular Exam: REGULAR RHYTHM, +S1, +S2 - GI/Abdominal Exam GI & Abdominal Exam: Soft, Normal Bowel Sounds Additional comments: dobhoff in place - Extremities Exam Extremities Exam: Pedal Edema Additional comments: left hemiparesis - Neurological Exam Neurological Exam: Altered - Skin Skin Exam: Dry, Pallor Assessment and Plan - Assessment and Plan (Free Text) Assessment: 67 year old female with history of advanced uterine cancer, frontal lobe cyst s/ p drainage who suffered an acute frontoparietal lobe hemorrhage, respiratory failure. She is s/p intubation. Patients at bedside. Revisited discussion regarding PEG placement. states he has not discussed with his family. Encouraged to do so as soon as possible. is hopeful that patient will eat on her own and that PEG may prevent this from happening. I explained that she is not able to swallow safely at this point and that Dobhoff is only temporary measure. Reassured that if her swallowing efforts improve in the future, that PEG use can be discontinued. I also explained that patient can not be transitioned to acute rehab until PEG is placed. states he will speak with his sons today. Ramifications of aggressive CPR/intubation explained to . affirms that he wants to remain full code. Time spent in goals of care and advanced care planning discussion, 30 minutes Plan: Palliative support. Will assist family in establishing goals of care and with advance care planning.
[2017-08-16] MEDS: Acetaminophen 650mg/20.3ml solution UD PO PRN ×2 (15:02→20:02)
[2017-08-16] MEDS: Insulin Detemir 100 units/ml Vial (Levemir) SC SCH (21:01)
[2017-08-17] MEDS: Insulin Lispro (HUMAlog) HIGH Coverage SC SCH ×6 (00:45→21:00)
[2017-08-17 06:23] LABS: BASO # 0.01 K/mm3 (0.0-2.0); BASO % 0.2 % (0.0-3.0); EOS # 0.1 (0.0-0.7); EOS % 1.5 % (1.5-5.0); GRAN # 4.55 (1.4-6.5); GRAN % 76.8 % (50.0-68.0); HEMATOCRIT 29.5 % (36.0-48.0); LYMPH # 0.9 (1.2-3.4); LYMPH % 14.8 % (22.0-35.0); MEAN CELL VOLUME 90.8 fl (80.0-105.0); MEAN CORPUSCULAR HEMOGLOBIN 28.9 pg (25.0-35.0); MEAN CORPUSCULAR HGB CONC 31.9 g/dl (31.0-37.0); MEAN PLATELET VOLUME 9.8 fl (7.0-11.0); MONO # 0.4 (0.1-0.6); MONO % 6.7 % (1.0-6.0); RED CELL DISTRIBUTION WIDTH 14.6 % (11.5-14.5); WHITE BLOOD COUNT 5.9 10^3/ul (4.5-11.0)
[2017-08-17 07:00] LABS: ALB/GLOB RATIO 1.3 (1.1-1.8); ALKALINE PHOSPHATASE 106 U/L (38-126); ALT/SGPT 43 U/L (7-56); AST/SGOT 35 U/L (14-36); BILIRUBIN,TOTAL 0.6 mg/dL (0.2-1.3); BLOOD UREA NITROGEN 18 mg/dL (7-21); CALCIUM 9.9 mg/dL (8.4-10.5); CARBON DIOXIDE 35 mmol/L (21-33); CHLORIDE 95 mmol/L (98-107); GFR AFRICAN-AMERICAN > 60; GLUCOSE,RANDOM 218 mg/dL (70-110); POTASSIUM 3.8 mmol/L (3.6-5.0); SODIUM 139 mmol/L (132-148)
[2017-08-17] MEDS: Mineral Oil/Petrolatum Opht Oint(3.5 gm) OU SCH ×2 (10:02→19:04)
--- NOTE | 2017-08-17 10:14 | RAD ---
HISTORY: r/o pneumonia COMPARISON: 08/13/2017 FINDINGS: LUNGS: No active pulmonary disease. There is elevation of the right hemidiaphragm. PLEURA: No significant pleural effusion identified, no pneumothorax apparent. CARDIOVASCULAR: Normal. OSSEOUS STRUCTURES: No significant abnormalities. VISUALIZED UPPER ABDOMEN: Feeding tube in satisfactory position OTHER FINDINGS: None. IMPRESSION: No active disease.
[2017-08-17 10:38] LABS: ARTERIAL BLOOD GAS HCO3 34.3 mmol/L (21-28); ARTERIAL BLOOD GAS O2 CAPACITY 13.1 mL/dl (16-24); ARTERIAL BLOOD GAS O2 CONTENT 13.1 ML/dl (15-23); ARTERIAL BLOOD HGB O2 SAT 96.8 % (95.0-98.0); HHB 0.3 % (0-5); METHEMOGLOBIN 0.9 % (0.0-3.0)
--- NOTE | 2017-08-17 12:34 | CT ---
PROCEDURE: CT HEAD WITHOUT CONTRAST. HISTORY: AMS, previous CVA COMPARISON: Prior CT scans and MRIs, the most recent noncontrast head CT from 08/01/2017. TECHNIQUE: Axial computed tomography images were obtained through the head/brain without intravenous contrast. Radiation dose: Total exam DLP = 681.32 mGy-cm. This CT exam was performed using one or more of the following dose reduction techniques: Automated exposure control, adjustment of the mA and/or kV according to patient size, and/or use of iterative reconstruction technique. FINDINGS: HEMORRHAGE: There is redemonstration of a chronic evolving hematoma in the right frontoparietal lobe now measuring 6.0 by 3.9 cm. There is persistent significant surrounding vasogenic edema with effacement of ipsilateral cortical sulci and mass effect on the right lateral ventricle with 10 mm midline shift from right to left. BRAIN: There is no evidence of extra-axial fluid collection or territorial infarction. There is no uncal or transtentorial herniation. VENTRICLES: No obstructive hydrocephalus. CALVARIUM: Status post right parietal craniotomy PARANASAL SINUSES: Predominantly clear. MASTOID AIR CELLS: Predominantly clear. OTHER FINDINGS: None. IMPRESSION: Chronic evolving hematoma in the right frontoparietal lobe in an underlying metastatic lesion with significant surrounding vasogenic edema, mass effect on the right lateral ventricle and 10 mm midline shift from right to left. No hydrocephalus or herniation.
--- NOTE | 2017-08-17 15:01 | CP.PCM.PN ---
<Mode Loera - Last Filed: 08/17/17 15:02> Subjective - Date & Time of Evaluation Date of Evaluation: 08/17/17 Time of Evaluation: 07:58 - Subjective Subjective: Patient seen and examined at bedside. Per nursing the patient had one episode of vomiting at 5:30a.m. and the the feedings were stopped. ROS was unobtainable due to patient's current clinical condition. Objective - Vital Signs/Intake and Output Vital Signs (last 24 hours): Temp Pulse Resp BP Pulse Ox 97.4 F L 106 H 20 164/82 H 99 08/17/17 06:00 08/17/17 06:12 08/17/17 06:00 08/17/17 06:12 08/17/17 06:00 Intake and Output: 08/17/17 08/17/17 06:59 18:59 Intake Total 0 0 Balance 0 0 - Medications Medications: Current Medications Acetaminophen (Tylenol 650mg/20.3ml Solution Ud) 650 mg PO Q6H PRN PRN Reason: Headache Last Admin: 08/16/17 20:02 Dose: 650 mg Artificial Tears (Artificial Tears Opht Oint) 0 gm OU BID [facility] Last Admin: 08/16/17 10:10 Dose: 1 applic Baclofen (Lioresal) 20 mg PO HS [facility] Last Admin: 08/16/17 21:01 Dose: 20 mg Insulin Detemir (Levemir) 10 unit SC HS [facility] Last Admin: 08/16/17 21:01 Dose: 10 unit Insulin Human Lispro (Humalog High) 0 units SC Q4H [facility] PRN Reason: Protocol Stop: 08/25/17 00:01 Last Admin: 08/17/17 04:19 Dose: 7 units Metoclopramide HCl (Reglan) 5 mg NG TID [facility] Metoprolol Tartrate (Lopressor) 50 mg PO BRKDIN [facility] Nifedipine (Procardia) 10 mg PO Q8 [facility] Last Admin: 08/17/17 06:12 Dose: 10 mg - Labs Labs: 08/17/17 06:00 08/17/17 06:00 PT 10.5 Seconds (9.9-11.8) 08/01/17 08:20 INR 0.97 (0.93-1.08) 08/01/17 08:20 APTT 27.3 Seconds (23.7-30.8) 08/01/17 08:20 - Head Exam Head Exam: ATRAUMATIC, NORMAL INSPECTION, NORMOCEPHALIC - Eye Exam Eye Exam: EOMI, Normal appearance, PERRL. absent: Periorbital tenderness Pupil Exam: NORMAL ACCOMODATION, PERRL. absent: Irregular, Unequal - ENT Exam ENT Exam: Mucous Membranes Moist, Normal Oropharynx. absent: Normal Exam, TM's Normal Bilaterally - Respiratory Exam Respiratory Exam: Clear to Ausculation Bilateral, NORMAL BREATHING PATTERN. absent: Accessory Muscle Use, Chest Wall Tenderness, Respiratory Distress - Cardiovascular Exam Cardiovascular Exam: REGULAR RHYTHM, RRR, +S1, +S2. absent: Gallop, Rubs - GI/Abdominal Exam GI & Abdominal Exam: Soft, Normal Bowel Sounds. absent: Tenderness, Hyperactive Bowel Sounds - Extremities Exam Additional comments: motor deficits (R>L) noted. - Neurological Exam Neurological Exam: Altered, Motor Sensory Deficit - Skin Skin Exam: Dry, Intact Assessment and Plan - Assessment and Plan (Free Text) Assessment: 67 y/o F with PMHx of Uterine CA s/p chemo/radiation and s/p total hysterectomy w/ bilateral salpingooopherectomy, DM, HTN, HLD presents with hemorrhagic CVA with midline shift, s/p decompressive craniotomy on 07/25/17. Patient unable to comprehend need for feeding tube and continues to exhibit pulling. Will place soft wrist restraint for right upper extremity. Plan: 1. Frontoparietal hemorrhagic CVA -Neurosurgery: No further surgical intervention -Nursing staff to discuss case with neurosurgery for scalp staple/suture recs. ( When cleared to remove) Awaiting recs. -Neurology signed off at this time -Maintain tight blood pressure control. BP med -Continue Keppra for seizure ppx -Patient had one episode of vomiting at 5:30a.m. Patient feedings were d/c'ed. Will restart at lower rate.Continue NPO. -Patient was more drowsy this morning. STAT Head CT ordered. Will f/u rec's tomorrow. -Continue aspiration precautions -Replaced feeding tube today. CXR with tube in stomach. -Continue Soft wrist restraints due to pulling. Reassess need tomorrow in the morning. -Continue Tube feeds. -Speech Language recs appreciated: continue tube feeds. -Family agreed to peg tube. 2. Repetitive Right hand "flapping" movements -Patient in soft restraints for the right hand. Will continue to monitor closely. -continue current treatment -discussed with Neurology, may be due to sequela of neuro disease -continue to monitor 3. Uterine CA. S/p neurosurg bx -Heme/Onc following -Radiation Onc recommends further therapy once stable as outpatient. 4. Bacteremia -No leukocytosis present. -previous Blood cultures with possible contaminant -ID following -Repeat Blood Cxs with no growth -Abx stopped 5. Hx of DM -Continue Accuchecks -ISS high dose -On Levemir 10U SC HS. Will monitor closely. -Continue to monitor 6. Hx of HTN -maintain tight blood pressure control. Continue to watch closely. 7. PPx -Continue Protonix -Continue SCDs <Roly Mays - Last Filed: 08/18/17 16:50> Objective - Vital Signs/Intake and Output Vital Signs (last 24 hours): Temp Pulse Resp BP Pulse Ox 98.3 F 104 H 19 159/79 H 98 08/18/17 16:38 08/18/17 16:38 08/18/17 16:38 08/18/17 16:38 08/18/17 16:38 Intake and Output: 08/18/17 08/18/17 06:59 18:59 Intake Total 0 0 Balance 0 0 - Medications Medications: Current Medications Acetaminophen (Tylenol 650mg/20.3ml Solution Ud) 650 mg PO Q6H PRN PRN Reason: Headache Last Admin: 08/17/17 16:04 Dose: 650 mg Artificial Tears (Artificial Tears Opht Oint) 0 gm OU BID [facility] Last Admin: 08/18/17 10:18 Dose: 1 applic Baclofen (Lioresal) 20 mg PO HS [facility] Last Admin: 08/17/17 21:56 Dose: 20 mg Levetiracetam (Keppra 500mg Ivpb) 500 mg in 100 mls @ 400 mls/hr IVPB Q12 [facility] Last Admin: 08/18/17 10:18 Dose: 400 mls/hr Dextrose/Sodium Chloride (Dextrose 5%/0.45% Ns 1000 Ml) 1,000 mls @ 80 mls/hr IV .[id number] [facility] Last Admin: 08/18/17 16:17 Dose: 80 mls/hr Insulin Detemir (Levemir) 10 unit SC HS [facility] Last Admin: 08/17/17 21:55 Dose: 10 unit Insulin Human Lispro (Humalog High) 0 units SC Q4H [facility] PRN Reason: Protocol Stop: 08/25/17 00:01 Last Admin: 08/18/17 16:16 Dose: Not Given Metoprolol Tartrate (Lopressor) 50 mg PO BRKDIN [facility] Last Admin: 08/18/17 16:16 Dose: 50 mg Nifedipine (Procardia) 10 mg PO Q8 [facility] Last Admin: 08/18/17 15:00 Dose: 10 mg Ondansetron HCl (Zofran Inj) 4 mg IVP Q4H PRN PRN Reason: Nausea/Vomiting - Labs Labs: 08/18/17 11:59 08/18/17 11:59 PT 10.6 Seconds (9.9-11.8) 08/17/17 17:22 INR 0.98 (0.93-1.08) 08/17/17 17:22 APTT 27.3 Seconds (23.7-30.8) 08/01/17 08:20 Attending/Attestation - Attestation I have personally seen and examined this patient.: Yes I have fully participated in the care of the patient.: Yes I have reviewed all pertinent clinical information, including history, physical exam and plan: Yes Notes (Text): 08/18/17 16:46 Patient was seen and examined with senior medical director. 67 year old female with PMH of uterine cancer, hypertension, diabetes, dyslipidemia and history of right parietal mass s/p recent craniotomy/biopsy was admitted with altered mental status. She was found to have hemorrhagic CVA with significant midline shift. She was seen by neurology and neurosurgery , no plan for intervention. Pathology report showed metastatic uterine cancer. Hem/Onc and Rad/Onc recommended possible radiation treatment once patient is stable. Patient is more drowsy today ,CT head was done that was negative for any new finding.Midline shift is improved, compared to previous MRI. Patient family is agreeable for PEG tube, we will let GI team know about this. Issue of DNR and DNI was discussed with patient family.Patient is full code at this time. Prognosis is guarded.
--- NOTE | 2017-08-17 15:51 | CP.PCM.PN ---
<Alecia Pichardo - Last Filed: 08/17/17 15:53> Subjective - Date & Time of Evaluation Date of Evaluation: 08/17/17 Time of Evaluation: 12:00 - Subjective Subjective: PGY 4 GI Follow-up Pt seen and examined bedside Opens eyes, no meaningful communication as per RN, no acute overnight events Still getting feeds through NG ROS: could not be conducted due to pt's AMS Objective - Vital Signs/Intake and Output Vital Signs (last 24 hours): Temp Pulse Resp BP Pulse Ox 97.4 F L 106 H 20 164/82 H 99 08/17/17 06:00 08/17/17 06:12 08/17/17 06:00 08/17/17 06:12 08/17/17 06:00 Intake and Output: 08/17/17 08/17/17 06:59 18:59 Intake Total 0 0 Balance 0 0 - Medications Medications: Current Medications Acetaminophen (Tylenol 650mg/20.3ml Solution Ud) 650 mg PO Q6H PRN PRN Reason: Headache Last Admin: 08/16/17 20:02 Dose: 650 mg Artificial Tears (Artificial Tears Opht Oint) 0 gm OU BID [facility] Last Admin: 08/16/17 10:10 Dose: 1 applic Baclofen (Lioresal) 20 mg PO HS [facility] Last Admin: 08/16/17 21:01 Dose: 20 mg Insulin Detemir (Levemir) 10 unit SC HS [facility] Last Admin: 08/16/17 21:01 Dose: 10 unit Insulin Human Lispro (Humalog High) 0 units SC Q4H [facility] PRN Reason: Protocol Stop: 08/25/17 00:01 Last Admin: 08/17/17 04:19 Dose: 7 units Metoclopramide HCl (Reglan) 5 mg NG TID [facility] Metoprolol Tartrate (Lopressor) 50 mg PO BRKDIN [facility] Nifedipine (Procardia) 10 mg PO Q8 [facility] Last Admin: 08/17/17 06:12 Dose: 10 mg - Labs Labs: 08/17/17 06:00 08/17/17 06:00 PT 10.5 Seconds (9.9-11.8) 08/01/17 08:20 INR 0.97 (0.93-1.08) 08/01/17 08:20 APTT 27.3 Seconds (23.7-30.8) 08/01/17 08:20 - Constitutional Appears: No Acute Distress, Chronically Ill - Head Exam Additional comments: right incision with shaara - Eye Exam Eye Exam: Normal appearance - ENT Exam ENT Exam: Mucous Membranes Moist - Respiratory Exam Respiratory Exam: Clear to Ausculation Bilateral, NORMAL BREATHING PATTERN. absent: Rales, Rhonchi, Wheezes, Respiratory Distress - Cardiovascular Exam Cardiovascular Exam: REGULAR RHYTHM, +S1, +S2 - GI/Abdominal Exam GI & Abdominal Exam: Soft, Normal Bowel Sounds. absent: Tenderness, Diminished Bowel Sounds, Hypoactive Bowel Sounds, Organomegaly - Extremities Exam Extremities Exam: absent: Joint Swelling, Pedal Edema - Neurological Exam Neurological Exam: Alert, Awake, Oriented x3 - Psychiatric Exam Additional comments: cannot assess - Skin Skin Exam: Dry, Intact, Normal Color, Warm Assessment and Plan - Assessment and Plan (Free Text) Assessment: Ayah Guillen is a 67F w/ hx of met uterine ca, HTN, and DM who presents with hemorrhagic CVA. Pt is awake, but does not have any meaningful interaction. She has failed many swallow eval likely 2/2 CVA 1. Dysphagia 2/2 CVA 2. Aspiration risk 3. Frontoparietal hemorrhagic CVA Plan: -Palliative care rec appreciated - agrees to PEG -turn off feed after midnight -discussed the pt's current condition and PEG risk and benefits extensively to and other family members in the room. -pt's is agreeable -tentatively scheduled for PEG tomorrow in the AM -will need repeat coags prior to the procedure D/W Dr. Sweeney <Giorgio Sweeney - Last Filed: 08/17/17 19:21> Objective - Vital Signs/Intake and Output Vital Signs (last 24 hours): Temp Pulse Resp BP Pulse Ox 98.8 F 82 19 144/62 96 08/17/17 17:45 08/17/17 17:45 08/17/17 17:45 08/17/17 17:45 08/17/17 17:45 Intake and Output: 08/17/17 08/18/17 18:59 06:59 Intake Total 0 Balance 0 - Medications Medications: Current Medications Acetaminophen (Tylenol 650mg/20.3ml Solution Ud) 650 mg PO Q6H PRN PRN Reason: Headache Last Admin: 08/17/17 16:04 Dose: 650 mg Artificial Tears (Artificial Tears Opht Oint) 0 gm OU BID [facility] Last Admin: 08/17/17 19:04 Dose: 1 applic Baclofen (Lioresal) 20 mg PO HS [facility] Last Admin: 08/16/17 21:01 Dose: 20 mg Insulin Detemir (Levemir) 10 unit SC HS [facility] Last Admin: 08/16/17 21:01 Dose: 10 unit Insulin Human Lispro (Humalog High) 0 units SC Q4H [facility] PRN Reason: Protocol Stop: 08/25/17 00:01 Last Admin: 08/17/17 19:05 Dose: Not Given Metoclopramide HCl (Reglan) 5 mg NG TID [facility] Last Admin: 08/17/17 14:05 Dose: 5 mg Metoprolol Tartrate (Lopressor) 50 mg PO BRKDIN [facility] Last Admin: 08/17/17 19:08 Dose: 50 mg Nifedipine (Procardia) 10 mg PO Q8 [facility] Last Admin: 08/17/17 14:00 Dose: 10 mg - Labs Labs: 08/17/17 06:00 08/17/17 06:00 PT 10.6 Seconds (9.9-11.8) 08/17/17 17:22 INR 0.98 (0.93-1.08) 08/17/17 17:22 APTT 27.3 Seconds (23.7-30.8) 08/01/17 08:20 Attending/Attestation - Attestation I have personally seen and examined this patient.: Yes I have fully participated in the care of the patient.: Yes I have reviewed all pertinent clinical information, including history, physical exam and plan: Yes Notes (Text): 08/17/17 19:20 67 year old female history of metastatic uterine ca, HTN, DM, hemorrhagic cva with dysphagia in need of possible peg. 1. Dysphagia 2. Stroke Plan: -discussed the risks,benefits, and alternatives of PEG with the family -they are agreeable to peg -will add on when available in , possibly monday -supportive measures
[2017-08-17] MEDS: Acetaminophen 650mg/20.3ml solution UD PO PRN (16:04)
--- NOTE | 2017-08-17 17:13 | CP.PCM.PN ---
Subjective - Date & Time of Evaluation Date of Evaluation: 08/17/17 Time of Evaluation: 16:00 - Subjective Subjective: Infectious Disease Follow Up: August 17, 2017 73 yo female presented with fall and altered mental status. She was found at home on floor by family who heard her fall. The patient was brought into the ER and found to be in uncontrolled hypertension and requiring intubation on arrival in the ER. The patient was found to hae a 4.4 cm left occipital intracranial hemorrhage with intraventricular extension. Patient is recovering but still having episodes of low grade fevers. Patient herself is not making any new complaints. She still has residual right sided weakness. Afebrile in the past 48 hours. Repeat cultures sent. Cannot rule out central fever. Cultures negative to date from sets taken on 07/28/2017 and 07/29/2017. She was extubated 08/04/2017. Patient opens her eyes and can follow an occasional command such as squeezing hand. Noted family has rescinded DNR/DNI. Noted Radiation Oncology considering palliative radiation if the patient shows some reasonable improvement during this hospitalization. Blood cultures with coagulase negative staph which is most likely contamination. Patient can occasional commands. No new issues. Antibiotics completed. Poorly responsive. On occasion follows commands. Noted that she failed swallow studies and required NG tube to be placed again. Seen by palliative care. Family wants full Code. Objective - Vital Signs/Intake and Output Vital Signs (last 24 hours): Temp Pulse Resp BP Pulse Ox 97.4 F L 106 H 20 164/82 H 99 08/17/17 06:00 08/17/17 06:12 08/17/17 06:00 08/17/17 06:12 08/17/17 06:00 Intake and Output: 08/17/17 08/17/17 06:59 18:59 Intake Total 0 0 Balance 0 0 - Medications Medications: Current Medications Acetaminophen (Tylenol 650mg/20.3ml Solution Ud) 650 mg PO Q6H PRN PRN Reason: Headache Last Admin: 08/17/17 16:04 Dose: 650 mg Artificial Tears (Artificial Tears Opht Oint) 0 gm OU BID [facility] Last Admin: 08/17/17 10:02 Dose: 1 applic Baclofen (Lioresal) 20 mg PO HS [facility] Last Admin: 08/16/17 21:01 Dose: 20 mg Insulin Detemir (Levemir) 10 unit SC HS [facility] Last Admin: 08/16/17 21:01 Dose: 10 unit Insulin Human Lispro (Humalog High) 0 units SC Q4H [facility] PRN Reason: Protocol Stop: 08/25/17 00:01 Last Admin: 08/17/17 12:04 Dose: Not Given Metoclopramide HCl (Reglan) 5 mg NG TID [facility] Last Admin: 08/17/17 14:05 Dose: 5 mg Metoprolol Tartrate (Lopressor) 50 mg PO BRKDIN [facility] Nifedipine (Procardia) 10 mg PO Q8 [facility] Last Admin: 08/17/17 14:00 Dose: 10 mg - Labs Labs: 08/17/17 06:00 08/17/17 06:00 PT 10.5 Seconds (9.9-11.8) 08/01/17 08:20 INR 0.97 (0.93-1.08) 08/01/17 08:20 APTT 27.3 Seconds (23.7-30.8) 08/01/17 08:20 - Constitutional Appears: Non-toxic, No Acute Distress, Chronically Ill - Head Exam Head Exam: ATRAUMATIC, NORMOCEPHALIC - Eye Exam Eye Exam: EOMI, PERRL Pupil Exam: NORMAL ACCOMODATION, PERRL - ENT Exam ENT Exam: Mucous Membranes Moist, Normal External Ear Exam, TM's Normal Bilaterally - Respiratory Exam Respiratory Exam: Clear to Ausculation Bilateral, NORMAL BREATHING PATTERN. absent: Rales, Rhonchi, Wheezes - Cardiovascular Exam Cardiovascular Exam: REGULAR RHYTHM, RRR, +S1, +S2 - GI/Abdominal Exam GI & Abdominal Exam: Soft, Normal Bowel Sounds. absent: Distended, Tenderness - Extremities Exam Extremities Exam: Full ROM, Normal Inspection - Neurological Exam Neurological Exam: Awake Additional comments: AAO x 0, lethargic, left neglect - Psychiatric Exam Additional comments: Unable to assess Assessment and Plan - Assessment and Plan (Free Text) Assessment: 73 yo female with low grade fevers of up to 100.4 F after suffering from a 4.4cm left occipital intracranial hemorrhage with intraventricular extension. The patient initially had fevers up to 101.7 F. Clinically, the patient has been improving. Supportive care. She was intubated on admission. She was extubated on 07/25/2017. She speaks vietnamese mostly. The family states that the patient is acting and speaking appropriately other than the slurring of speech due to her right sided residual weakness. Alfredo cultures sent. There was a mild initial leukocytosis on admission but this has slowly improved. Fever trend has shown improvement. The cultures done to date have been negative so far. No consolidation seen on Chest X-ray. Patient answering question during interview and examination. Supportive care. Currently on Unasyn for antibiotic coverage. Noted C. Diff and repeat urine culture sent. No adequate sample for C. diff testing. Would obtain urinalysis. Would continue Unasyn for now. The current temperature is more likely secondary to the recent intracranial hemorrhage. No Leukocytosis with WBC of 5.4 on 08/15/2017. Multiple culture sets performed to date are negative. Afebrile for the past 48 hours now. Cultures negative to date at greater than 48 hours. Cannot rule out central fever which is the most likely scenario. It appears as the hemorrhage improves the fevers are improving. The patient still with residual right sided weakness. Last CT done on 07/30/2017 showing interval evolution of known subacute hematoma in left occipital lobe without midline shift or herniation. Resolving intraventricular hemorrhage with residual mild intraventricular hemorrhage. Antibiotics completed. Extubated 08/04/2017. Able to follow occasional simple command. Supportive care. Poor laborer marine terminal prognosis given Uterine cancer with brain metastasis and the recent hemorrhagic CVA. No new infectious disease issues. Difficulty with feeds. NG tube had to be replaced and patient made NPO before NG tube placement. Patient dislodged NG tube a night ago. The patient is lethargic. At this point, she is not following commands. Family still wants Full Code. Thank you for allowing me to participate in the care of the patient, we will follow with you.
[2017-08-17 17:34] LABS: INR 0.98 (0.93-1.08)
[2017-08-17] MEDS ORDERED: Sodium Chloride 0.9% 500 ML IV SCH (20:00)
[2017-08-17] MEDS ORDERED: Sodium Chloride 0.9% 1,000 ML IV SCH (20:33)
[2017-08-17] MEDS: levETIRAcetam 500mg IVPB 500 MG/100 ML BAG IVPB SCH (21:54)
[2017-08-17] MEDS: Insulin Detemir 100 units/ml Vial (Levemir) SC SCH (21:55)
[2017-08-17] MEDS ORDERED: levETIRAcetam 500 MG in Sodium Chloride 0.9% 100 ML IV SCH (22:00)
[2017-08-18] MEDS: Insulin Lispro (HUMAlog) HIGH Coverage SC SCH ×5 (00:30→16:16)
[2017-08-18] MEDS ORDERED: levoFLOXacin 750 mg in D5W 150 ML BAG IVPB ONE (08:03)
[2017-08-18] MEDS ORDERED: Midazolam 2 MG/2 ML VIAL ONE (08:14)
[2017-08-18] MEDS ORDERED: Propofol 10 mg/ml Inj (20 ML) ONE (08:14)
[2017-08-18] MEDS ORDERED: Etomidate 20 mg/10ml Inj IV ONE (08:26)
[2017-08-18] MEDS ORDERED: levETIRAcetam 500 mg/5ml UD cups NG SCH (10:00)
[2017-08-18] MEDS: levETIRAcetam 500mg IVPB 500 MG/100 ML BAG IVPB SCH ×2 (10:18→22:22)
[2017-08-18] MEDS: Mineral Oil/Petrolatum Opht Oint(3.5 gm) OU SCH (10:18)
--- NOTE | 2017-08-18 11:40 | CP.PCM.PN ---
<Mode Loera - Last Filed: 08/18/17 11:40> Subjective - Date & Time of Evaluation Date of Evaluation: 08/18/17 Time of Evaluation: 06:38 - Subjective Subjective: Patient was seen and examined at bedside. The patient was responsive to painful stimuli. The patient was expected to have a PEG tube placement this morning by GI team. ROS unobtainable due to patient's current clinical condition. Objective - Vital Signs/Intake and Output Vital Signs (last 24 hours): Temp Pulse Resp BP Pulse Ox 98.9 F 97 H 21 167/91 H 99 08/18/17 09:45 08/18/17 09:45 08/18/17 09:45 08/18/17 09:45 08/18/17 09:45 Intake and Output: 08/18/17 08/18/17 06:59 18:59 Intake Total 0 Balance 0 - Medications Medications: Current Medications Acetaminophen (Tylenol 650mg/20.3ml Solution Ud) 650 mg PO Q6H PRN PRN Reason: Headache Last Admin: 08/17/17 16:04 Dose: 650 mg Artificial Tears (Artificial Tears Opht Oint) 0 gm OU BID [facility] Last Admin: 08/18/17 10:18 Dose: 1 applic Baclofen (Lioresal) 20 mg PO HS [facility] Last Admin: 08/17/17 21:56 Dose: 20 mg Levetiracetam (Keppra 500mg Ivpb) 500 mg in 100 mls @ 400 mls/hr IVPB Q12 [facility] Last Admin: 08/18/17 10:18 Dose: 400 mls/hr Dextrose/Sodium Chloride (Dextrose 5%/0.45% Ns 1000 Ml) 1,000 mls @ 80 mls/hr IV .[id number] [facility] Insulin Detemir (Levemir) 10 unit SC HS [facility] Last Admin: 08/17/17 21:55 Dose: 10 unit Insulin Human Lispro (Humalog High) 0 units SC Q4H [facility] PRN Reason: Protocol Stop: 08/25/17 00:01 Last Admin: 08/18/17 08:13 Dose: Not Given Metoprolol Tartrate (Lopressor) 50 mg PO BRKDIN [facility] Last Admin: 08/18/17 08:28 Dose: Not Given Nifedipine (Procardia) 10 mg PO Q8 [facility] Last Admin: 08/18/17 05:04 Dose: 10 mg Ondansetron HCl (Zofran Inj) 4 mg IVP Q4H PRN PRN Reason: Nausea/Vomiting - Labs Labs: 08/17/17 06:00 08/17/17 06:00 PT 10.6 Seconds (9.9-11.8) 08/17/17 17:22 INR 0.98 (0.93-1.08) 08/17/17 17:22 APTT 27.3 Seconds (23.7-30.8) 08/01/17 08:20 - Constitutional Appears: Non-toxic - Head Exam Head Exam: ATRAUMATIC, NORMAL INSPECTION, NORMOCEPHALIC - Eye Exam Eye Exam: Normal appearance, PERRL. absent: EOMI Pupil Exam: PERRL. absent: Irregular - ENT Exam ENT Exam: Mucous Membranes Moist - Neck Exam Neck Exam: Normal Inspection - Respiratory Exam Respiratory Exam: Clear to Ausculation Bilateral, NORMAL BREATHING PATTERN. absent: Chest Wall Tenderness, Respiratory Distress - Cardiovascular Exam Cardiovascular Exam: REGULAR RHYTHM, RRR, +S1, +S2. absent: Gallop, Rubs - GI/Abdominal Exam GI & Abdominal Exam: Soft, Normal Bowel Sounds - Extremities Exam Extremities Exam: Full ROM, Normal Inspection. absent: Joint Swelling, Pedal Edema - Neurological Exam Neurological Exam: Altered, Motor Sensory Deficit Neuro motor strength exam: Left Upper Extremity: 3, Right Upper Extremity: 0, Left Lower Extremity: 2/1, Right Lower Extremity: 0 - Skin Skin Exam: Dry Assessment and Plan - Assessment and Plan (Free Text) Assessment: 67 y/o F with PMHx of Uterine CA s/p chemo/radiation and s/p total hysterectomy w/ bilateral salpingooopherectomy, DM, HTN, HLD presents with hemorrhagic CVA with midline shift, s/p decompressive craniotomy on 07/25/17. Patient unable to comprehend need for feeding tube and continues to exhibit pulling. Will place soft wrist restraint for right upper extremity. Plan: 1. Frontoparietal hemorrhagic CVA -Neurosurgery: No further surgical intervention -Nursing staff to discuss case with neurosurgery for scalp staple/suture recs. ( When cleared to remove) Awaiting recs. -Neurology signed off at this time -Maintain tight blood pressure control. BP med -Continue Keppra for seizure ppx -Patient had one episode of vomiting at 5:30a.m. Patient feedings were d/c'ed. Will restart at lower rate.Continue NPO. -Patient was more drowsy this morning. STAT Head CT ordered. Showed improvement in brain bleed and the size is now 10mmm. -Continue aspiration precautions -Replaced feeding tube today. CXR with tube in stomach. -Continue Soft wrist restraints due to pulling. Reassess need tomorrow in the morning. -Continue Tube feeds. -Speech Language recs appreciated: continue tube feeds. -Peg tube placed this morning. Will f/u with Social Work rec's. 2. Repetitive Right hand "flapping" movements -Patient in soft restraints for the right hand. Will continue to monitor closely. -continue current treatment -discussed with Neurology, may be due to sequela of neuro disease -continue to monitor 3. Uterine CA. S/p neurosurg bx -Heme/Onc following -Radiation Onc recommends further therapy once stable as outpatient. 4. Bacteremia -No leukocytosis present. -previous Blood cultures with possible contaminant -ID following -Repeat Blood Cxs with no growth -Abx stopped 5. Hx of DM -Continue Accuchecks -ISS high dose -Continue Levemir 10U SC HS. Will monitor closely. -Continue to monitor 6. Hx of HTN -maintain tight blood pressure control. Continue to watch closely. 7. PPx -Continue Protonix -Continue SCDs <Roly Mays - Last Filed: 08/18/17 16:52> Objective - Vital Signs/Intake and Output Vital Signs (last 24 hours): Temp Pulse Resp BP Pulse Ox 98.3 F 104 H 19 159/79 H 98 08/18/17 16:38 08/18/17 16:38 08/18/17 16:38 08/18/17 16:38 08/18/17 16:38 Intake and Output: 08/18/17 08/18/17 06:59 18:59 Intake Total 0 0 Balance 0 0 - Medications Medications: Current Medications Acetaminophen (Tylenol 650mg/20.3ml Solution Ud) 650 mg PO Q6H PRN PRN Reason: Headache Last Admin: 08/17/17 16:04 Dose: 650 mg Artificial Tears (Artificial Tears Opht Oint) 0 gm OU BID [facility] Last Admin: 08/18/17 10:18 Dose: 1 applic Baclofen (Lioresal) 20 mg PO HS [facility] Last Admin: 08/17/17 21:56 Dose: 20 mg Levetiracetam (Keppra 500mg Ivpb) 500 mg in 100 mls @ 400 mls/hr IVPB Q12 [facility] Last Admin: 08/18/17 10:18 Dose: 400 mls/hr Dextrose/Sodium Chloride (Dextrose 5%/0.45% Ns 1000 Ml) 1,000 mls @ 80 mls/hr IV .[id number] [facility] Last Admin: 08/18/17 16:17 Dose: 80 mls/hr Insulin Detemir (Levemir) 10 unit SC HS [facility] Last Admin: 08/17/17 21:55 Dose: 10 unit Insulin Human Lispro (Humalog High) 0 units SC Q4H [facility] PRN Reason: Protocol Stop: 08/25/17 00:01 Last Admin: 08/18/17 16:16 Dose: Not Given Metoprolol Tartrate (Lopressor) 50 mg PO BRKDIN [facility] Last Admin: 08/18/17 16:16 Dose: 50 mg Nifedipine (Procardia) 10 mg PO Q8 [facility] Last Admin: 08/18/17 15:00 Dose: 10 mg Ondansetron HCl (Zofran Inj) 4 mg IVP Q4H PRN PRN Reason: Nausea/Vomiting - Labs Labs: 08/18/17 11:59 08/18/17 11:59 PT 10.6 Seconds (9.9-11.8) 08/17/17 17:22 INR 0.98 (0.93-1.08) 08/17/17 17:22 APTT 27.3 Seconds (23.7-30.8) 08/01/17 08:20 Attending/Attestation - Attestation I have personally seen and examined this patient.: Yes I have fully participated in the care of the patient.: Yes I have reviewed all pertinent clinical information, including history, physical exam and plan: Yes Notes (Text): 08/18/17 16:51 Patient was seen and examined with medical certification specialist. 67 year old female with PMH of uterine cancer, hypertension, diabetes, dyslipidemia and history of right parietal mass s/p recent craniotomy/biopsy was admitted with altered mental status. She was found to have hemorrhagic CVA with significant midline shift. She was seen by neurology and neurosurgery , no plan for intervention. Pathology report showed metastatic uterine cancer. Hem/Onc and Rad/Onc recommended possible radiation treatment once patient is stable. ,CT head yesterday was negative for any new finding.Midline shift is improved, compared to previous MRI. Patient underwent PEG tube placement today.Neuro examination is unchanged since yesterday. Patient is a high risk for aspiration. Issue of DNR and DNI was discussed with patient family.Patient is full code at this time. Prognosis is guarded.
[2017-08-18 12:03] LABS: BASO # 0.01 K/mm3 (0.0-2.0); BASO % 0.2 % (0.0-3.0); EOS % 0.7 % (1.5-5.0); GRAN # 4.73 (1.4-6.5); GRAN % 81.9 % (50.0-68.0); HEMATOCRIT 30.5 % (36.0-48.0); LYMPH # 0.6 (1.2-3.4); LYMPH % 10.4 % (22.0-35.0); MEAN CELL VOLUME 91.6 fl (80.0-105.0); MEAN CORPUSCULAR HEMOGLOBIN 29.4 pg (25.0-35.0); MEAN CORPUSCULAR HGB CONC 32.1 g/dl (31.0-37.0); MEAN PLATELET VOLUME 9.4 fl (7.0-11.0); MONO # 0.4 (0.1-0.6); MONO % 6.8 % (1.0-6.0); WHITE BLOOD COUNT 5.8 10^3/ul (4.5-11.0)
[2017-08-18 12:14] LABS: ALB/GLOB RATIO 1.3 (1.1-1.8); ALKALINE PHOSPHATASE 101 U/L (38-126); ALT/SGPT 36 U/L (7-56); AST/SGOT 29 U/L (14-36); BILIRUBIN,TOTAL 0.8 mg/dL (0.2-1.3); BLOOD UREA NITROGEN 19 mg/dL (7-21); CALCIUM 9.6 mg/dL (8.4-10.5); CARBON DIOXIDE 33 mmol/L (21-33); CHLORIDE 97 mmol/L (98-107); GFR AFRICAN-AMERICAN > 60; GLUCOSE,RANDOM 167 mg/dL (70-110); POTASSIUM 3.6 mmol/L (3.6-5.0); SODIUM 139 mmol/L (132-148); TOTAL PROTEIN 6.7 g/dL (5.8-8.3)
--- NOTE | 2017-08-18 13:24 | CP.PCM.PN ---
Subjective - Date & Time of Evaluation Date of Evaluation: 08/16/17 Time of Evaluation: 20:00 - Subjective Subjective: Appears comfortable, responds slowly Objective - Vital Signs/Intake and Output Vital Signs (last 24 hours): Temp Pulse Resp BP Pulse Ox 98.9 F 97 H 21 167/91 H 99 08/18/17 09:45 08/18/17 09:45 08/18/17 09:45 08/18/17 09:45 08/18/17 09:45 Intake and Output: 08/18/17 08/18/17 06:59 18:59 Intake Total 0 Balance 0 - Medications Medications: Current Medications Acetaminophen (Tylenol 650mg/20.3ml Solution Ud) 650 mg PO Q6H PRN PRN Reason: Headache Last Admin: 08/17/17 16:04 Dose: 650 mg Artificial Tears (Artificial Tears Opht Oint) [address] [facility] Last Admin: 08/18/17 10:18 Dose: 1 applic Baclofen (Lioresal) 20 mg PO [facility] Last Admin: 08/17/17 21:56 Dose: 20 mg Levetiracetam (Keppra 500mg Ivpb) 500 mg in 100 mls @ 400 mls/hr IVPB Q12 [facility] Last Admin: 08/18/17 10:18 Dose: 400 mls/hr Dextrose/Sodium Chloride (Dextrose 5%/0.45% Ns 1000 Ml) 1,000 mls @ 80 mls/hr IV .[id number] [facility] Insulin Detemir (Levemir) 10 unit SC [facility] Last Admin: 08/17/17 21:55 Dose: 10 unit Insulin Human Lispro (Humalog High) 0 units SC Q4H [facility] PRN Reason: Protocol Stop: 08/25/17 00:01 Last Admin: 08/18/17 12:41 Dose: Not Given Metoprolol Tartrate (Lopressor) [address] [facility] Last Admin: 08/18/17 08:28 Dose: Not Given Nifedipine (Procardia) [address] [facility] Last Admin: 08/18/17 05:04 Dose: 10 mg Ondansetron HCl (Zofran Inj) 4 mg IVP Q4H PRN PRN Reason: Nausea/Vomiting - Labs Labs: 08/18/17 11:59 08/18/17 11:59 PT 10.6 Seconds (9.9-11.8) 08/17/17 17:22 INR 0.98 (0.93-1.08) 08/17/17 17:22 APTT 27.3 Seconds (23.7-30.8) 08/01/17 08:20 - Eye Exam Eye Exam: Normal appearance - ENT Exam ENT Exam: Mucous Membranes Dry - Respiratory Exam Respiratory Exam: NORMAL BREATHING PATTERN - Cardiovascular Exam Cardiovascular Exam: +S1, +S2 - GI/Abdominal Exam GI & Abdominal Exam: Normal Bowel Sounds - Extremities Exam Extremities Exam: Pedal Edema Assessment and Plan (1) Uterine cancer Assessment & Plan: stage IV with brain met s/p neurosurgical biopsy for radiotherapy when more stable Status: Acute (2) Anemia Assessment & Plan: chronic disease Status: Acute
--- NOTE | 2017-08-18 13:25 | CP.PCM.PN ---
Subjective - Date & Time of Evaluation Date of Evaluation: 08/17/17 Time of Evaluation: 19:10 - Subjective Subjective: at bedside, no complaints. Objective - Vital Signs/Intake and Output Vital Signs (last 24 hours): Temp Pulse Resp BP Pulse Ox 98.9 F 97 H 21 167/91 H 99 08/18/17 09:45 08/18/17 09:45 08/18/17 09:45 08/18/17 09:45 08/18/17 09:45 Intake and Output: 08/18/17 08/18/17 06:59 18:59 Intake Total 0 Balance 0 - Medications Medications: Current Medications Acetaminophen (Tylenol 650mg/20.3ml Solution Ud) 650 mg PO Q6H PRN PRN Reason: Headache Last Admin: 08/17/17 16:04 Dose: 650 mg Artificial Tears (Artificial Tears Opht Oint) 0 gm OU BID [facility] Last Admin: 08/18/17 10:18 Dose: 1 applic Baclofen (Lioresal) 20 mg PO [facility] Last Admin: 08/17/17 21:56 Dose: 20 mg Levetiracetam (Keppra 500mg Ivpb) 500 mg in 100 mls @ 400 mls/hr IVPB Q12 [facility] Last Admin: 08/18/17 10:18 Dose: 400 mls/hr Dextrose/Sodium Chloride (Dextrose 5%/0.45% Ns 1000 Ml) 1,000 mls @ 80 mls/hr IV .[id number] [facility] Insulin Detemir (Levemir) 10 unit SC [facility] Last Admin: 08/17/17 21:55 Dose: 10 unit Insulin Human Lispro (Humalog High) 0 units SC Q4H [facility] PRN Reason: Protocol Stop: 08/25/17 00:01 Last Admin: 08/18/17 12:41 Dose: Not Given Metoprolol Tartrate (Lopressor) 50 mg PO BRKDIN [facility] Last Admin: 08/18/17 08:28 Dose: Not Given Nifedipine (Procardia) 10 mg PO Q8 [facility] Last Admin: 08/18/17 05:04 Dose: 10 mg Ondansetron HCl (Zofran Inj) 4 mg IVP Q4H PRN PRN Reason: Nausea/Vomiting - Labs Labs: 08/18/17 11:59 10/06/17 11:59 PT 10.6 Seconds (9.9-11.8) 08/17/17 17:22 INR 0.98 (0.93-1.08) 08/17/17 17:22 APTT 27.3 Seconds (23.7-30.8) 08/01/17 08:20 - Eye Exam Eye Exam: Normal appearance - ENT Exam ENT Exam: Mucous Membranes Dry - Respiratory Exam Respiratory Exam: NORMAL BREATHING PATTERN - Cardiovascular Exam Cardiovascular Exam: +S1, +S2 - GI/Abdominal Exam GI & Abdominal Exam: Normal Bowel Sounds - Extremities Exam Extremities Exam: Pedal Edema Assessment and Plan (1) Uterine cancer Assessment & Plan: stage IV brain met s/p neurosurgical biopsy brain radiotherapy when more stable Status: Acute (2) Anemia Assessment & Plan: chronic disease Status: Acute
--- NOTE | 2017-08-18 15:41 | CP.PCM.PN ---
Subjective - Date & Time of Evaluation Date of Evaluation: 08/18/17 Time of Evaluation: 15:00 - Subjective Subjective: Infectious Disease Follow Up: August 18, 2017 73 yo female presented with fall and altered mental status. She was found at home on floor by family who heard her fall. The patient was brought into the ER and found to be in uncontrolled hypertension and requiring intubation on arrival in the ER. The patient was found to hae a 4.4 cm left occipital intracranial hemorrhage with intraventricular extension. Patient is recovering but still having episodes of low grade fevers. Patient herself is not making any new complaints. She still has residual right sided weakness. Afebrile in the past 48 hours. Repeat cultures sent. Cannot rule out central fever. Cultures negative to date from sets taken on 07/28/2017 and 07/29/2017. She was extubated 08/04/2017. Patient opens her eyes and can follow an occasional command such as squeezing hand. Noted family has rescinded DNR/DNI. Noted Radiation Oncology considering palliative radiation if the patient shows some reasonable improvement during this hospitalization. Blood cultures with coagulase negative staph which is most likely contamination. Patient can occasional commands. No new issues. Antibiotics completed. Poorly responsive. Poorly responsive. Noted that she failed swallow studies and required NG tube to be placed again. Patient is deteriorating. Seen by palliative care. Family wants full Code. Objective - Vital Signs/Intake and Output Vital Signs (last 24 hours): Temp Pulse Resp BP Pulse Ox 98.9 F 97 H 21 167/91 H 99 08/18/17 09:45 08/18/17 09:45 08/18/17 09:45 08/18/17 09:45 08/18/17 09:45 Intake and Output: 08/18/17 08/18/17 06:59 18:59 Intake Total 0 0 Balance 0 0 - Medications Medications: Current Medications Acetaminophen (Tylenol 650mg/20.3ml Solution Ud) 650 mg PO Q6H PRN PRN Reason: Headache Last Admin: 08/17/17 16:04 Dose: 650 mg Artificial Tears (Artificial Tears Opht Oint) 0 gm OU BID [facility] Last Admin: 08/18/17 10:18 Dose: 1 applic Baclofen (Lioresal) 20 mg PO HS [facility] Last Admin: 08/17/17 21:56 Dose: 20 mg Levetiracetam (Keppra 500mg Ivpb) 500 mg in 100 mls @ 400 mls/hr IVPB Q12 [facility] Last Admin: 08/18/17 10:18 Dose: 400 mls/hr Dextrose/Sodium Chloride (Dextrose 5%/0.45% Ns 1000 Ml) 1,000 mls @ 80 mls/hr IV .[id number] [facility] Insulin Detemir (Levemir) 10 unit SC HS [facility] Last Admin: 08/17/17 21:55 Dose: 10 unit Insulin Human Lispro (Humalog High) 0 units SC Q4H [facility] PRN Reason: Protocol Stop: 08/25/17 00:01 Last Admin: 08/18/17 12:41 Dose: Not Given Metoprolol Tartrate (Lopressor) 50 mg PO BRKDIN [facility] Last Admin: 08/18/17 08:28 Dose: Not Given Nifedipine (Procardia) 10 mg PO Q8 [facility] Last Admin: 08/18/17 05:04 Dose: 10 mg Ondansetron HCl (Zofran Inj) 4 mg IVP Q4H PRN PRN Reason: Nausea/Vomiting - Labs Labs: 08/18/17 11:59 08/18/17 11:59 PT 10.6 Seconds (9.9-11.8) 08/17/17 17:22 INR 0.98 (0.93-1.08) 08/17/17 17:22 APTT 27.3 Seconds (23.7-30.8) 08/01/17 08:20 - Constitutional Appears: Non-toxic, No Acute Distress, Chronically Ill - Head Exam Head Exam: ATRAUMATIC, NORMOCEPHALIC - Eye Exam Eye Exam: EOMI, PERRL Pupil Exam: NORMAL ACCOMODATION, PERRL - ENT Exam ENT Exam: Mucous Membranes Moist, Normal External Ear Exam, TM's Normal Bilaterally - Neck Exam Neck Exam: Full ROM, Normal Inspection - Respiratory Exam Respiratory Exam: Clear to Ausculation Bilateral, NORMAL BREATHING PATTERN. absent: Rales, Rhonchi, Wheezes - Cardiovascular Exam Cardiovascular Exam: REGULAR RHYTHM, RRR, +S1, +S2 - GI/Abdominal Exam GI & Abdominal Exam: Soft, Normal Bowel Sounds. absent: Distended, Tenderness - Extremities Exam Extremities Exam: Full ROM, Normal Inspection - Neurological Exam Neurological Exam: Awake Additional comments: AAO x 0, lethargic, left neglect - Psychiatric Exam Additional comments: Unable to assess Assessment and Plan - Assessment and Plan (Free Text) Assessment: 73 yo female with low grade fevers of up to 100.4 F after suffering from a 4.4cm left occipital intracranial hemorrhage with intraventricular extension. The patient initially had fevers up to 101.7 F. Clinically, the patient has been improving. Supportive care. She was intubated on admission. She was extubated on 07/25/2017. She speaks serbian mostly. The family states that the patient is acting and speaking appropriately other than the slurring of speech due to her right sided residual weakness. Alfredo cultures sent. There was a mild initial leukocytosis on admission but this has slowly improved. Fever trend has shown improvement. The cultures done to date have been negative so far. No consolidation seen on Chest X-ray. Patient answering question during interview and examination. Supportive care. Currently on Unasyn for antibiotic coverage. Noted C. Diff and repeat urine culture sent. No adequate sample for C. diff testing. Would obtain urinalysis. Was on Unasyn. The current temperature is more likely secondary to the recent intracranial hemorrhage. No Leukocytosis with WBC of 5.4 on 08/15/2017. Multiple culture sets performed to date are negative. Afebrile for the past 48 hours now. Cultures negative to date at greater than 48 hours. Cannot rule out central fever which is the most likely scenario. It appears as the hemorrhage improves the fevers are improving. The patient still with residual right sided weakness. Last CT done on 07/30/2017 showing interval evolution of known subacute hematoma in left occipital lobe without midline shift or herniation. Resolving intraventricular hemorrhage with residual mild intraventricular hemorrhage. Antibiotics completed. Extubated 08/04/2017. Able to follow occasional simple command. Supportive care. Poor lobsterman prognosis given Uterine cancer with brain metastasis and the recent hemorrhagic CVA. No new infectious disease issues. Difficulty with feeds. NG tube had to be replaced and patient made NPO before NG tube placement. Patient dislodged NG tube a night ago. The patient is lethargic. At this point, she is not following commands. Family still wants Full Code. Afebrile at this time. Thank you for allowing me to participate in the care of the patient, we will follow with you.
[2017-08-18] MEDS: Dextrose 5%/0.45% NS 1,000 ML IV SCH (16:17)
[2017-08-18] MEDS: Insulin Detemir 100 units/ml Vial (Levemir) SC SCH (22:21)
[2017-08-19] MEDS: Acetaminophen 650mg/20.3ml solution UD PO PRN ×3 (06:06→18:49)
--- NOTE | 2017-08-19 07:45 | CP.PCM.PCO ---
Physician Communication Note - Physician Communication Note Physician Communication Note: PEG bumper adjusted, site clean, may begin feeds. Will sign off case.
[2017-08-19] MEDS: Insulin Lispro (HUMAlog) HIGH Coverage SC SCH ×4 (08:16→19:05)
[2017-08-19] MEDS: levETIRAcetam 500mg IVPB 500 MG/100 ML BAG IVPB SCH ×2 (10:16→22:48)
[2017-08-19] MEDS: Mineral Oil/Petrolatum Opht Oint(3.5 gm) OU SCH ×2 (10:17→17:51)
--- NOTE | 2017-08-19 10:50 | CP.PCM.PN ---
<EvaristoMarianan - Last Filed: 08/19/17 10:51> Subjective - Date & Time of Evaluation Date of Evaluation: 08/19/17 Time of Evaluation: 08:48 - Subjective Subjective: Patient seen and examined at bedside. Per nursing no new events occurred overnight. The patient was more alert today on examination than the last two days, however she still is drowsy. The remainder of ROS unobtainable due to current clinical condition. Objective - Vital Signs/Intake and Output Vital Signs (last 24 hours): Temp Pulse Resp BP Pulse Ox 98.9 F 96 H 18 138/86 100 08/19/17 10:30 08/19/17 10:30 08/19/17 10:30 08/19/17 10:30 08/19/17 10:30 Intake and Output: 08/19/17 08/19/17 06:59 18:59 Intake Total 0 Output Total 0 Balance 0 - Medications Medications: Current Medications Acetaminophen (Tylenol 650mg/20.3ml Solution Ud) 650 mg PO Q6H PRN PRN Reason: Headache Last Admin: 08/19/17 06:06 Dose: 650 mg Artificial Tears (Artificial Tears Opht Oint) 0 gm OU BID [facility] Last Admin: 08/19/17 10:17 Dose: Not Given Baclofen (Lioresal) 20 mg PO HS [facility] Last Admin: 08/18/17 22:21 Dose: 20 mg Levetiracetam (Keppra 500mg Ivpb) 500 mg in 100 mls @ 400 mls/hr IVPB Q12 [facility] Last Admin: 08/19/17 10:16 Dose: 400 mls/hr Insulin Detemir (Levemir) 10 unit SC HS [facility] Last Admin: 08/18/17 22:21 Dose: 10 unit Insulin Human Lispro (Humalog High) 0 units SC Q4H [facility] PRN Reason: Protocol Stop: 08/25/17 00:01 Last Admin: 08/19/17 08:16 Dose: 4 units Metoprolol Tartrate (Lopressor) 50 mg PO BRKDIN [facility] Last Admin: 08/19/17 08:00 Dose: 50 mg Nifedipine (Procardia) 10 mg PO Q8 [facility] Last Admin: 08/19/17 06:05 Dose: 10 mg Ondansetron HCl (Zofran Inj) 4 mg IVP Q4H PRN PRN Reason: Nausea/Vomiting - Labs Labs: 08/18/17 11:59 08/18/17 11:59 PT 10.6 Seconds (9.9-11.8) 08/17/17 17:22 INR 0.98 (0.93-1.08) 08/17/17 17:22 APTT 27.3 Seconds (23.7-30.8) 08/01/17 08:20 - Head Exam Head Exam: ATRAUMATIC, NORMAL INSPECTION, NORMOCEPHALIC - Eye Exam Eye Exam: Normal appearance, PERRL Pupil Exam: NORMAL ACCOMODATION, PERRL - ENT Exam ENT Exam: Mucous Membranes Moist - Neck Exam Neck Exam: Normal Inspection. absent: Lymphadenopathy, Thyromegaly - Respiratory Exam Respiratory Exam: Clear to Ausculation Bilateral, NORMAL BREATHING PATTERN. absent: Accessory Muscle Use, Chest Wall Tenderness, Respiratory Distress - Cardiovascular Exam Cardiovascular Exam: REGULAR RHYTHM, +S1, +S2 - GI/Abdominal Exam GI & Abdominal Exam: Soft, Normal Bowel Sounds. absent: Tenderness, Hyperactive Bowel Sounds - Neurological Exam Neurological Exam: Motor Sensory Deficit. absent: Normal Gait - Skin Skin Exam: Dry, Intact Assessment and Plan - Assessment and Plan (Free Text) Assessment: 67 y/o F with PMHx of Uterine CA s/p chemo/radiation and s/p total hysterectomy w/ bilateral salpingooopherectomy, DM, HTN, HLD presents with hemorrhagic CVA with midline shift, s/p decompressive craniotomy on 07/25/17. Patient unable to comprehend need for feeding tube and continues to exhibit pulling. Will place soft wrist restraint for right upper extremity. Plan: 1. Frontoparietal hemorrhagic CVA -Neurosurgery: No further surgical intervention -Nursing staff to discuss case with neurosurgery for scalp staple/suture recs. ( When cleared to remove) Awaiting recs. -Neurology signed off at this time -Maintain tight blood pressure control. BP med -Continue Keppra for seizure ppx -Patient had one episode of vomiting at 5:30a.m. Patient feedings were d/c'ed. Will restart at lower rate.Continue NPO. -Patient was more drowsy this morning. STAT Head CT ordered. Showed improvement in brain bleed and the size is now 10mmm. -Continue aspiration precautions -Replaced feeding tube today. CXR with tube in stomach. -Continue Soft wrist restraints due to pulling. Reassess need tomorrow in the morning. -Continue Tube feeds. -Speech Language recs appreciated: continue tube feeds. -Peg tube placed. Tube feedings started back with Glucerna at 30 ml/hr. Will increase as tolerated. 2. Repetitive Right hand "flapping" movements -Patient in soft restraints for the right hand. Will continue to monitor closely. -continue current treatment -discussed with Neurology, may be due to sequela of neuro disease -continue to monitor 3. Uterine CA. S/p neurosurg bx -Heme/Onc following -Radiation Onc recommends further therapy once stable as outpatient. 4. Bacteremia -No leukocytosis present. -previous Blood cultures with possible contaminant -ID following -Repeat Blood Cxs with no growth -Abx stopped 5. Hx of DM -Continue Accuchecks -ISS high dose -Continue Levemir 10U SC HS. Will monitor closely. -Continue to monitor 6. Hx of HTN -maintain tight blood pressure control. Continue to watch closely. 7. PPx -Continue Protonix -Continue SCDs PEG tube in place and receiving nutrition via tube. The plan is to keep the patient over the weekend and see how she tolerates tube feedings. If tolerated she's [facility]. <Roly Mays - Last Filed: 08/19/17 16:28> Objective - Vital Signs/Intake and Output Vital Signs (last 24 hours): Temp Pulse Resp BP Pulse Ox 98.9 F 85 18 138/86 100 08/19/17 10:30 08/19/17 14:00 08/19/17 10:30 08/19/17 10:30 08/19/17 10:30 Intake and Output: 08/19/17 08/19/17 06:59 18:59 Intake Total 0 160 Output Total 0 Balance 0 160 - Medications Medications: Current Medications Acetaminophen (Tylenol 650mg/20.3ml Solution Ud) 650 mg PO Q6H PRN PRN Reason: Headache Last Admin: 08/19/17 10:00 Dose: 650 mg Artificial Tears (Artificial Tears Opht Oint) 0 gm OU BID [facility] Last Admin: 08/19/17 10:17 Dose: Not Given Baclofen (Lioresal) 20 mg PO HS [facility] Last Admin: 08/18/17 22:21 Dose: 20 mg Levetiracetam (Keppra 500mg Ivpb) 500 mg in 100 mls @ 400 mls/hr IVPB Q12 [facility] Last Admin: 08/19/17 10:16 Dose: 400 mls/hr Insulin Detemir (Levemir) 10 unit SC HS [facility] Last Admin: 08/18/17 22:21 Dose: 10 unit Insulin Human Lispro (Humalog High) 0 units SC Q6H [facility] PRN Reason: Protocol Last Admin: 08/19/17 13:10 Dose: Not Given Metoprolol Tartrate (Lopressor) 50 mg PO BRKDIN [facility] Last Admin: 08/19/17 08:00 Dose: 50 mg Nifedipine (Procardia) 10 mg PO Q8 [facility] Last Admin: 08/19/17 14:34 Dose: 10 mg Ondansetron HCl (Zofran Inj) 4 mg IVP Q4H PRN PRN Reason: Nausea/Vomiting - Labs Labs: 08/18/17 11:59 08/19/17 14:50 PT 10.6 Seconds (9.9-11.8) 08/17/17 17:22 INR 0.98 (0.93-1.08) 08/17/17 17:22 APTT 27.3 Seconds (23.7-30.8) 08/01/17 08:20 Attending/Attestation - Attestation I have personally seen and examined this patient.: Yes I have fully participated in the care of the patient.: Yes I have reviewed all pertinent clinical information, including history, physical exam and plan: Yes Notes (Text): 08/19/17 16:26 Patient was seen and examined with medical front desk coordinator. 67 year old female with PMH of uterine cancer, hypertension, diabetes, dyslipidemia and history of right parietal mass s/p recent craniotomy/biopsy was admitted with altered mental status. She was found to have hemorrhagic CVA with significant midline shift. She was seen by neurology and neurosurgery , no plan for intervention. Pathology report showed metastatic uterine cancer. Hem/Onc and Rad/Onc recommended possible radiation treatment once patient is stable. ,Her Neuro examination is unchanged.Mental status is still poor.Patient underwent PEG tube placement yesterday.We will stat tube feeding. Patient is a high risk for aspiration. Patient is a full code at this time Prognosis is guarded. 08/19/17 16:28
[2017-08-19] MEDS: Dextrose 5%/0.45% NS 1,000 ML IV SCH (11:42)
[2017-08-19 15:13] LABS: ALB/GLOB RATIO 1.3 (1.1-1.8); ALKALINE PHOSPHATASE 107 U/L (38-126); ALT/SGPT 39 U/L (7-56); AST/SGOT 35 U/L (14-36); BILIRUBIN,TOTAL 1.3 mg/dL (0.2-1.3); BLOOD UREA NITROGEN 14 mg/dL (7-21); CALCIUM 9.4 mg/dL (8.4-10.5); CARBON DIOXIDE 25 mmol/L (21-33); CHLORIDE 100 mmol/L (98-107); GFR AFRICAN-AMERICAN > 60; GLUCOSE,RANDOM 165 mg/dL (70-110); POTASSIUM 3.9 mmol/L (3.6-5.0); SODIUM 137 mmol/L (132-148)
--- NOTE | 2017-08-19 19:29 | CP.PCM.PN ---
Subjective - Date & Time of Evaluation Date of Evaluation: 08/19/17 Time of Evaluation: 17:22 - Subjective Subjective: Infectious Disease Follow Up: August 19, 2017 73 yo female presented with fall and altered mental status. She was found at home on floor by family who heard her fall. The patient was brought into the ER and found to be in uncontrolled hypertension and requiring intubation on arrival in the ER. The patient was found to hae a 4.4 cm left occipital intracranial hemorrhage with intraventricular extension. Patient is recovering but still having episodes of low grade fevers. Patient herself is not making any new complaints. She still has residual right sided weakness. Afebrile in the past 48 hours. Repeat cultures sent. Cannot rule out central fever. Cultures negative to date from sets taken on 07/28/2017 and 07/29/2017. She was extubated 08/04/2017. Patient opens her eyes and can follow an occasional command such as squeezing hand. Noted family has rescinded DNR/DNI. Noted Radiation Oncology considering palliative radiation if the patient shows some reasonable improvement during this hospitalization. Blood cultures with coagulase negative staph which is most likely contamination. Patient can occasional commands. No new issues. Antibiotics completed. Poorly responsive. Poorly responsive. Noted that she failed swallow studies and required NG tube to be placed again. Patient is deteriorating. No new issues. Seen by palliative care. Family wants full Code. Objective - Vital Signs/Intake and Output Vital Signs (last 24 hours): Temp Pulse Resp BP Pulse Ox 98.9 F 126 H 18 131/87 100 08/19/17 10:30 08/19/17 17:53 08/19/17 10:30 08/19/17 17:53 08/19/17 10:30 Intake and Output: 08/19/17 08/20/17 18:59 06:59 Intake Total 160 Balance 160 - Medications Medications: Current Medications Acetaminophen (Tylenol 650mg/20.3ml Solution Ud) 650 mg PO Q6H PRN PRN Reason: Headache Last Admin: 08/19/17 18:49 Dose: 650 mg Artificial Tears (Artificial Tears Opht Oint) 0 gm OU BID [facility] Last Admin: 08/19/17 17:51 Dose: Not Given Baclofen (Lioresal) 20 mg PO HS [facility] Last Admin: 08/18/17 22:21 Dose: 20 mg Levetiracetam (Keppra 500mg Ivpb) 500 mg in 100 mls @ 400 mls/hr IVPB Q12 [facility] Last Admin: 08/19/17 10:16 Dose: 400 mls/hr Insulin Detemir (Levemir) 10 unit SC HS [facility] Last Admin: 08/18/17 22:21 Dose: 10 unit Insulin Human Lispro (Humalog High) 0 units SC Q6H [facility] PRN Reason: Protocol Last Admin: 08/19/17 13:10 Dose: Not Given Metoprolol Tartrate (Lopressor) 50 mg PO BRKDIN [facility] Last Admin: 08/19/17 17:53 Dose: 50 mg Nifedipine (Procardia) 10 mg PO Q8 [facility] Last Admin: 08/19/17 14:34 Dose: 10 mg Ondansetron HCl (Zofran Inj) 4 mg IVP Q4H PRN PRN Reason: Nausea/Vomiting - Labs Labs: 08/18/17 11:59 08/19/17 14:50 PT 10.6 Seconds (9.9-11.8) 08/17/17 17:22 INR 0.98 (0.93-1.08) 08/17/17 17:22 APTT 27.3 Seconds (23.7-30.8) 08/01/17 08:20 - Constitutional Appears: Non-toxic, No Acute Distress, Chronically Ill - Head Exam Head Exam: ATRAUMATIC, NORMOCEPHALIC - Eye Exam Eye Exam: EOMI, PERRL Pupil Exam: NORMAL ACCOMODATION, PERRL - ENT Exam ENT Exam: Mucous Membranes Moist, Normal External Ear Exam, TM's Normal Bilaterally - Neck Exam Neck Exam: Full ROM, Normal Inspection - Respiratory Exam Respiratory Exam: Clear to Ausculation Bilateral, NORMAL BREATHING PATTERN. absent: Rales, Rhonchi, Wheezes - Cardiovascular Exam Cardiovascular Exam: REGULAR RHYTHM, RRR, +S1, +S2 - GI/Abdominal Exam GI & Abdominal Exam: Soft, Normal Bowel Sounds. absent: Distended, Tenderness - Extremities Exam Extremities Exam: Full ROM, Normal Inspection - Neurological Exam Neurological Exam: Awake Additional comments: AAO x 0, lethargic, left neglect, not following commands. - Psychiatric Exam Additional comments: Unable to Assess Assessment and Plan - Assessment and Plan (Free Text) Assessment: 73 yo female with low grade fevers of up to 100.4 F after suffering from a 4.4cm left occipital intracranial hemorrhage with intraventricular extension. The patient initially had fevers up to 101.7 F. Clinically, the patient has been improving. Supportive care. She was intubated on admission. She was extubated on 07/25/2017. She speaks yi mostly. The family states that the patient is acting and speaking appropriately other than the slurring of speech due to her right sided residual weakness. Alfredo cultures sent. There was a mild initial leukocytosis on admission but this has slowly improved. Fever trend has shown improvement. The cultures done to date have been negative so far. No consolidation seen on Chest X-ray. Patient answering question during interview and examination. Supportive care. Currently on Unasyn for antibiotic coverage. Noted C. Diff and repeat urine culture sent. No adequate sample for C. diff testing. Would obtain urinalysis. Was on Unasyn. The current temperature is more likely secondary to the recent intracranial hemorrhage. No Leukocytosis with WBC of 5.4 on 08/15/2017. Multiple culture sets performed to date are negative. Afebrile for the past 48 hours now. Cultures negative to date at greater than 48 hours. Cannot rule out central fever which is the most likely scenario. It appears as the hemorrhage improves the fevers are improving. The patient still with residual right sided weakness. Last CT done on 07/30/2017 showing interval evolution of known subacute hematoma in left occipital lobe without midline shift or herniation. Resolving intraventricular hemorrhage with residual mild intraventricular hemorrhage. Antibiotics completed. Extubated 08/04/2017. Able to follow occasional simple command. Supportive care. Poor terminal press operator prognosis given Uterine cancer with brain metastasis and the recent hemorrhagic CVA. No new infectious disease issues. Difficulty with feeds. NG tube had to be replaced and patient made NPO before NG tube placement. Patient dislodged NG tube a night ago. The patient is lethargic. At this point, she is not following commands. Family still wants Full Code. Afebrile at this time. Thank you for allowing me to participate in the care of the patient, we will follow with you.
[2017-08-19] MEDS: Insulin Detemir 100 units/ml Vial (Levemir) SC SCH (22:50)
[2017-08-20] MEDS: Insulin Lispro (HUMAlog) HIGH Coverage SC SCH ×3 (01:00→16:18)
[2017-08-20 07:52] LABS: EOS % 0.5 % (1.5-5.0); GRAN # 1.21 (1.4-6.5); GRAN % 55.5 % (50.0-68.0); HEMATOCRIT 33.5 % (36.0-48.0); LYMPH # 0.8 (1.2-3.4); LYMPH % 35.3 % (22.0-35.0); MEAN CELL VOLUME 90.3 fl (80.0-105.0); MEAN CORPUSCULAR HEMOGLOBIN 29.1 pg (25.0-35.0); MEAN CORPUSCULAR HGB CONC 32.2 g/dl (31.0-37.0); MEAN PLATELET VOLUME 9.9 fl (7.0-11.0); MONO # 0.2 (0.1-0.6); MONO % 8.7 % (1.0-6.0)
[2017-08-20 07:57] LABS: WHITE BLOOD COUNT 2.2 10^3/ul (4.5-11.0)
[2017-08-20 08:00] LABS: ALB/GLOB RATIO 1.3 (1.1-1.8); BILIRUBIN,TOTAL 1.3 mg/dL (0.2-1.3); CALCIUM 9.8 mg/dL (8.4-10.5); POTASSIUM 4.8 mmol/L (3.6-5.0); TOTAL PROTEIN 6.8 g/dL (5.8-8.3)
--- NOTE | 2017-08-20 08:42 | PCM.PROC ---
Procedures Attestation:: I certify that I have explained the specified Operation(s) or Procedure(s), risks, benefits and reasonable alternatives to the Patient and/or other person responsible. The opportunity was given to ask questions and all questions answered - Intubation Time Out Performed: Yes Sedative: Etomidate (10cc) Paralytic: Succinylholine (120cc) Laryngoscope: Glidescope ET Tube Size: 7.5 ET Tube Uncuffed: Yes ET Tube Secured at Depth: 22 ET Tube Secured Locarion: Lips ET Tube Placement Confirmation: Visualized Passing Through Cords, Breath Sounds Equal Bilaterally, No Breath Sounds Over Epigastrum, Confirmation w/Capnometry Patient Tolerated Procedure: No Complications Procedure Immediate Complications: None Additional comments: STAT CXR ordered to confirm placement of ET tube - will follow up STAT ABG ordered - will follow up
[2017-08-20] MEDS ORDERED: Aztreonam 1 Gm in NS 100mL 100 ML IVPB SCH (08:45)
[2017-08-20] MEDS ORDERED: Etomidate 20 mg/10ml Inj IV ONE (09:08)
[2017-08-20] MEDS ORDERED: Succinylcholine 200 mg/10 ml Inj IV ONE (09:08)
[2017-08-20] MEDS ORDERED: Vancomycin 1gm in NS 250ml 1 GM/250 ML BAG IVPB STA (09:21)
[2017-08-20] MEDS ORDERED: metroNIDAZOLE IV 500 mg/100 ml 500 MG/100 ML BAG IVPB SCH ×2 (10:00→15:24)
[2017-08-20] MEDS: levETIRAcetam 500mg IVPB 500 MG/100 ML BAG IVPB SCH ×2 (10:30→23:00)
[2017-08-20 11:03] LABS: ARTERIAL BLOOD GAS HCO3 17.9 mmol/L (21-28); ARTERIAL BLOOD GAS O2 CAPACITY 13.2 mL/dl (16-24); ARTERIAL BLOOD GAS O2 CONTENT 13.3 ML/dl (15-23); ARTERIAL BLOOD GAS PH 7.43 (7.35-7.45); ARTERIAL BLOOD HGB O2 SAT 98.2 % (95.0-98.0); CARBOXYHEMOGLOBIN 1.8 % (0.5-1.5); HHB -0.5 % (0-5); METHEMOGLOBIN 0.5 % (0.0-3.0)
--- NOTE | 2017-08-20 11:08 | RAD ---
HISTORY: Intubation. Technique: Supine view performed @ 08:56 COMPARISON: 08/17/2017 FINDINGS: LUNGS: No active pulmonary disease. PLEURA: No significant pleural effusion identified, no pneumothorax apparent. CARDIOVASCULAR: No radiographic findings to suggest acute or significant cardiovascular disease. OSSEOUS STRUCTURES: No significant abnormalities. VISUALIZED UPPER ABDOMEN: Normal. OTHER FINDINGS: Low lying endotracheal tube at the kerri directed into the right mainstem bronchus. Optimal placement would results from retraction of the tube approximately 4 cm. IMPRESSION: Low lying endotracheal tube. This should be pulled back approximately 4 cm for optimal placement.
[2017-08-20 11:44] VITALS: O2SAT 100
--- NOTE | 2017-08-20 12:17 | CP.PCM.PN ---
Subjective - Date & Time of Evaluation Date of Evaluation: 08/20/17 Time of Evaluation: 08:14 - Subjective Subjective: Patient was seen and examined at bedside. Per nursing staff the patient was able to get to her tube and caused it to get out of place. The patient oxygen stats began to drop and a rapid response was called on her this morning which ended in her being intubated and transferred to the ICU. The family was made aware of events. ROS unobtainable due to current clinical condition. Objective - Vital Signs/Intake and Output Vital Signs (last 24 hours): Temp Pulse Resp BP Pulse Ox 99.3 F 105 H 20 106/50 L 100 08/20/17 10:00 08/20/17 11:30 08/20/17 11:30 08/20/17 11:30 08/20/17 11:30 Intake and Output: 08/20/17 08/20/17 06:59 18:59 Intake Total 0 Output Total 350 Balance -350 - Medications Medications: Current Medications Acetaminophen (Tylenol 650mg/20.3ml Solution Ud) 650 mg PO Q6H PRN PRN Reason: Headache Last Admin: 08/19/17 18:49 Dose: 650 mg Artificial Tears (Artificial Tears Opht Oint) 0 gm OU BID [facility] Last Admin: 08/19/17 17:51 Dose: Not Given Baclofen (Lioresal) 20 mg PO HS [facility] Last Admin: 08/19/17 22:51 Dose: Not Given Levetiracetam (Keppra 500mg Ivpb) 500 mg in 100 mls @ 400 mls/hr IVPB Q12 [facility] Last Admin: 08/20/17 10:30 Dose: 400 mls/hr Metronidazole (Flagyl) 500 mg in 100 mls @ 100 mls/hr IVPB TID [facility] PRN Reason: Protocol Last Admin: 08/20/17 10:34 Dose: 100 mls/hr Aztreonam 500 mg/ Sodium (Chloride) 100 mls @ 100 mls/hr IVPB Q8 [facility] PRN Reason: Protocol Stop: 08/20/17 22:59 Insulin Detemir (Levemir) 10 unit SC HS [facility] Last Admin: 08/19/17 22:50 Dose: 10 unit Insulin Human Lispro (Humalog High) 0 units SC Q6H [facility] PRN Reason: Protocol Last Admin: 08/20/17 08:15 Dose: 10 units Metoprolol Tartrate (Lopressor) 50 mg PO BRKDIN [facility] Nifedipine (Procardia) 10 mg PO Q8 [facility] Last Admin: 08/20/17 05:59 Dose: Not Given Ondansetron HCl (Zofran Inj) 4 mg IVP Q4H PRN PRN Reason: Nausea/Vomiting - Labs Labs: 08/20/17 07:20 08/20/17 07:20 PT 10.6 Seconds (9.9-11.8) 08/17/17 17:22 INR 0.98 (0.93-1.08) 08/17/17 17:22 APTT 27.3 Seconds (23.7-30.8) 08/01/17 08:20 - Head Exam Head Exam: ATRAUMATIC, NORMAL INSPECTION, NORMOCEPHALIC - Eye Exam Eye Exam: Normal appearance. absent: EOMI, Periorbital tenderness, PERRL Pupil Exam: NORMAL ACCOMODATION, PERRL. absent: Irregular, Unequal - ENT Exam ENT Exam: Mucous Membranes Moist, Normal Exam - Neck Exam Neck Exam: Normal Inspection. absent: Lymphadenopathy, Thyromegaly - Respiratory Exam Respiratory Exam: Clear to Ausculation Bilateral, NORMAL BREATHING PATTERN. absent: Respiratory Distress - Cardiovascular Exam Cardiovascular Exam: REGULAR RHYTHM, +S1, +S2. absent: RRR, Rubs - GI/Abdominal Exam GI & Abdominal Exam: Soft, Normal Bowel Sounds. absent: Rigid, Tenderness - Extremities Exam Extremities Exam: absent: Full ROM, Joint Swelling, Pedal Edema, Tenderness - Neurological Exam Neurological Exam: Altered, Motor Sensory Deficit Neuro motor strength exam: Left Upper Extremity: 2/1, Right Upper Extremity: 0, Left Lower Extremity: 2/1, Right Lower Extremity: 0 - Skin Skin Exam: Dry Assessment and Plan - Assessment and Plan (Free Text) Assessment: 67 y/o F with PMHx of Uterine CA s/p chemo/radiation and s/p total hysterectomy w/ bilateral salpingooopherectomy, DM, HTN, HLD presents with hemorrhagic CVA with midline shift, s/p decompressive craniotomy on 07/25/17. Patient unable to comprehend need for feeding tube and continues to exhibit pulling. Will place soft wrist restraint for right upper extremity. Plan: 1. Frontoparietal hemorrhagic CVA -Neurosurgery: No further surgical intervention -Nursing staff to discuss case with neurosurgery for scalp staple/suture recs. ( When cleared to remove) Awaiting recs. -Neurology signed off at this time -Maintain tight blood pressure control. BP med -Continue Keppra for seizure ppx -Patient had one episode of vomiting at 5:30a.m. Patient feedings were d/c'ed. Will restart at lower rate.Continue NPO. -Patient was more drowsy this morning. STAT Head CT ordered. Showed improvement in brain bleed and the size is now 10mmm. -Continue aspiration precautions -Replaced feeding tube today. CXR with tube in stomach. -Continue Soft wrist restraints due to pulling. Reassess need tomorrow in the morning. -Continue Tube feeds. -Speech Language recs appreciated: continue tube feeds. -Peg tube placed. Patient attempted to dislodge peg tube again today and it was ultimately pulled by Dr. Joyner early this morning. Tube feedings stopped. Patient became unresponsive and oxygen saturation began to drop. Rapid response was called and she was intubated and sent to ICU. 2. Repetitive Right hand "flapping" movements -Patient in soft restraints for the right hand. Will continue to monitor closely. -continue current treatment -discussed with Neurology, may be due to sequela of neuro disease -continue to monitor 3. Uterine CA. S/p neurosurg bx -Heme/Onc following -Radiation Onc recommends further therapy once stable as outpatient. 4. Bacteremia -No leukocytosis present. -previous Blood cultures with possible contaminant -ID following -Repeat Blood Cxs with no growth -Abx stopped -Patient started on empiric Vancomycin. Will continueto monitor. 5. Hx of DM -Continue Accuchecks -ISS high dose -Continue Levemir 10U SC HS. Will monitor closely. -Continue to monitor 6. Hx of HTN -maintain tight blood pressure control. Continue to watch closely. 7. PPx -Continue Protonix -Continue SCDs
--- NOTE | 2017-08-20 12:28 | PCM.RRT ---
PHYSICAL THERAPIST CENTER MANAGER Nurse Assessment - Situation Date: 08/20/17 Time PHYSICAL THERAPIST CENTER MANAGER was called: 08:10 PHYSICAL THERAPIST CENTER MANAGER Responder Arrival Time: 08:15 PHYSICAL THERAPIST CENTER MANAGER Location:: [address] [place] [address] Room Number: 362 PHYSICAL THERAPIST CENTER MANAGER Reason for Call: Tachycardia, Respiratory Distress, O2 Saturation below 90% , Looks Sicker PHYSICAL THERAPIST CENTER MANAGER Called By: RN - IV IV Inserted during PHYSICAL THERAPIST CENTER MANAGER?: No - Respiratory Oxygen Delivery Method: BiPAP @%, Intubated Oxygen Flow Rate: 3 Received Nebulizer Treatments:: No Was the Patient Ventilated with Bag/Mask 100% O2?: No Secretions Suctioned?: No Was the Patient Placed on a Ventilator?: No - Medication Medications Administered During PHYSICAL THERAPIST CENTER MANAGER: Etomidate 20 mg IVP. Succinylcholine 120 mg IVP - Diagnostic Test Ordered EKG: Yes Chest X-Ray: Yes - Stat Labs Ordered PHYSICAL THERAPIST CENTER MANAGER Stat Labs Ordered: CBC, BMP, ABG CPR started during PHYSICAL THERAPIST CENTER MANAGER?: No - Vital Signs Vital Sign: Rapid Response Vital Sign Blood Pressure 114/49 Pulse Rate 130 Respiratory Rate 48 Temperature 99.2 F Oxygen Saturation 75 - Finger Stick Blood Glucose Finger Stick Blood Glucose: 301 - Sepsis Screen Part 1 Sepsis Screen Part 1: Hypotensive - Sepsis Screen Part 2 Sepsis Screen Part 2: Glucose elevated, Pt not on steroids - Time PHYSICAL THERAPIST CENTER MANAGER Ended Time PHYSICAL THERAPIST CENTER MANAGER Ended: 08:36 - Vital Signs at end of PHYSICAL THERAPIST CENTER MANAGER Vital Signs at end of PHYSICAL THERAPIST CENTER MANAGER: Rapid Response End Vital Sign Blood Pressure 90/53 Pulse Rate 122 Respiratory Rate 40 Temperature 99.0 F O2 Sat by Pulse Oximetry 100 - Recommendations Notifications: Attending Physician I.Reason for PHYSICAL THERAPIST CENTER MANAGER - A) Acute Change in Patient: Subjective: This is a 67 year old female with past medical history of uterine ca s/p surgery /chemo/radiation, hypertension, diabetes type 2, hyperlipidemia who had a rapid called on her today after pulling at her tube feeding and oxygen saturation began to plummet. - Respiratory Oxygen Delivery Method: BiPAP @%, Intubated Oxygen Flow Rate: 3 - Head Head Exam: ATRAUMATIC, NORMAL INSPECTION, NORMOCEPHALIC - Eyes Eye Exam: Normal appearance, PERRL. absent: EOMI - Respiratory Exam Respiratory Exam: Clear to Ausculation Bilateral, NORMAL BREATHING PATTERN. absent: Chest Wall Tenderness, Respiratory Distress - Cardiovascular Exam Cardiovascular Exam: REGULAR RHYTHM, +S1, +S2. absent: Gallop, Rubs - GI/Abdominal Exam GI & Abdominal Exam: Soft, Normal Bowel Sounds. absent: Guarding, Rigid, Tenderness - Neurological Exam Neurological Exam: Altered, Motor Sensory Deficit Plan - Assessment of Findings&Treatment Plan The rapid response was called and I ordered stat cbc, cmp, abg, cxr. The initial blood pressure was taken and read 114/79 and oxygen saturation was 75%. Initially the the patient was placed on BIPAP, however the vitals didn't improve enough and it was decided to intubate her. The patient was intubated and sent down to the ICU floor for further management.
--- NOTE | 2017-08-20 12:37 | PCM.SEPTIC ---
Sepsis Progress Note - Reassessment Type Date of Evaluation: 08/20/17 Time of Evaluation: 06:36 Reassessment Type: Non-invasive reassessment - Non Invasive Reassessment Were the most recent vital sign reviewed: Yes Vital Sign (Latest): Temp Pulse Resp BP Pulse Ox 99.3 F 105 H 20 106/50 L 100 08/20/17 10:00 08/20/17 11:30 08/20/17 11:30 08/20/17 11:30 08/20/17 11:30 Cardiovascular: Yes: Regular Rate, Rhythm. No: Bradycardia, Tachycardia Respiratory: Yes: Normal Breath Sounds Capillary Refill: Normal (Less than 2 sec) Skin: Dry - Invasive Reassessment (complete 2 of 4) Was a Central Venous Pressure Measurement obtained within 6 Hours after the presentation of septic shock: No Was a central venous oxygen measurement obtained within 6 hours after the presentation of septic shock: No Was a bedside cardiovascular ultrasound performed within 6 hours after the presentation of septic shock: No Was a passive leg raise performed or was a fluid challenge performed within 6 hrs of the initial fluid bolus: No Passive Leg Raise Result: Not Applicable Fluid Challenge performed: Yes
--- NOTE | 2017-08-20 13:01 | CP.PCM.PN ---
Subjective - Date & Time of Evaluation Date of Evaluation: 08/18/17 Time of Evaluation: 18:00 - Subjective Subjective: Appears comfortable, at bedside Objective - Vital Signs/Intake and Output Vital Signs (last 24 hours): Temp Pulse Resp BP Pulse Ox 99.3 F 105 H 20 106/50 L 100 08/20/17 10:00 08/20/17 11:30 08/20/17 11:30 08/20/17 11:30 08/20/17 11:30 Intake and Output: 08/20/17 08/20/17 06:59 18:59 Intake Total 0 Output Total 350 Balance -350 - Medications Medications: Current Medications Acetaminophen (Tylenol 650mg/20.3ml Solution Ud) 650 mg PO Q6H PRN PRN Reason: Headache Last Admin: 08/19/17 18:49 Dose: 650 mg Artificial Tears (Artificial Tears Opht Oint) 0 gm OU BID [facility] Last Admin: 08/19/17 17:51 Dose: Not Given Baclofen (Lioresal) 20 mg PO HS [facility] Last Admin: 08/19/17 22:51 Dose: Not Given Levetiracetam (Keppra 500mg Ivpb) 500 mg in 100 mls @ 400 mls/hr IVPB Q12 [facility] Last Admin: 08/20/17 10:30 Dose: 400 mls/hr Metronidazole (Flagyl) 500 mg in 100 mls @ 100 mls/hr IVPB TID [facility] PRN Reason: Protocol Last Admin: 08/20/17 10:34 Dose: 100 mls/hr Aztreonam 500 mg/ Sodium (Chloride) 100 mls @ 100 mls/hr IVPB Q8 [facility] PRN Reason: Protocol Stop: 08/20/17 22:59 Insulin Detemir (Levemir) 10 unit SC HS [facility] Last Admin: 08/19/17 22:50 Dose: 10 unit Insulin Human Lispro (Humalog High) 0 units SC Q6H [facility] PRN Reason: Protocol Last Admin: 08/20/17 08:15 Dose: 10 units Metoprolol Tartrate (Lopressor) 50 mg PO BRKDIN [facility] Nifedipine (Procardia) 10 mg PO Q8 [facility] Last Admin: 08/20/17 05:59 Dose: Not Given Ondansetron HCl (Zofran Inj) 4 mg IVP Q4H PRN PRN Reason: Nausea/Vomiting - Labs Labs: 08/20/17 07:20 08/20/17 07:20 PT 10.6 Seconds (9.9-11.8) 08/17/17 17:22 INR 0.98 (0.93-1.08) 08/17/17 17:22 APTT 27.3 Seconds (23.7-30.8) 08/01/17 08:20 - Head Exam Head Exam: ATRAUMATIC - Eye Exam Eye Exam: Normal appearance - ENT Exam ENT Exam: Mucous Membranes Dry - Respiratory Exam Respiratory Exam: NORMAL BREATHING PATTERN - Cardiovascular Exam Cardiovascular Exam: +S1, +S2 - GI/Abdominal Exam GI & Abdominal Exam: Normal Bowel Sounds - Extremities Exam Extremities Exam: Normal Inspection Assessment and Plan (1) Uterine cancer Assessment & Plan: brain metastasis s/p neurosurgical biopsy palliative radiotherapy when more clinically stable Status: Acute (2) Anemia Assessment & Plan: anemia of chronic disease Status: Acute
--- NOTE | 2017-08-20 13:07 | CP.PCM.PN ---
Subjective - Date & Time of Evaluation Date of Evaluation: 08/19/17 Time of Evaluation: 16:00 - Subjective Subjective: Appears comfortable, slow to respond Objective - Vital Signs/Intake and Output Vital Signs (last 24 hours): Temp Pulse Resp BP Pulse Ox 99.3 F 105 H 20 106/50 L 100 08/20/17 10:00 08/20/17 11:30 08/20/17 11:30 08/20/17 11:30 08/20/17 11:30 Intake and Output: 08/20/17 08/20/17 06:59 18:59 Intake Total 0 Output Total 350 Balance -350 - Medications Medications: Current Medications Acetaminophen (Tylenol 650mg/20.3ml Solution Ud) 650 mg PO Q6H PRN PRN Reason: Headache Last Admin: 08/19/17 18:49 Dose: 650 mg Artificial Tears (Artificial Tears Opht Oint) 0 gm OU BID [facility] Last Admin: 08/19/17 17:51 Dose: Not Given Baclofen (Lioresal) 20 mg PO HS [facility] Last Admin: 08/19/17 22:51 Dose: Not Given Levetiracetam (Keppra 500mg Ivpb) 500 mg in 100 mls @ 400 mls/hr IVPB Q12 [facility] Last Admin: 08/20/17 10:30 Dose: 400 mls/hr Metronidazole (Flagyl) 500 mg in 100 mls @ 100 mls/hr IVPB TID [facility] PRN Reason: Protocol Last Admin: 08/20/17 10:34 Dose: 100 mls/hr Aztreonam 500 mg/ Sodium (Chloride) 100 mls @ 100 mls/hr IVPB Q8 [facility] PRN Reason: Protocol Stop: 08/20/17 22:59 Insulin Detemir (Levemir) 10 unit SC HS [facility] Last Admin: 08/19/17 22:50 Dose: 10 unit Insulin Human Lispro (Humalog High) 0 units SC Q6H [facility] PRN Reason: Protocol Last Admin: 08/20/17 08:15 Dose: 10 units Metoprolol Tartrate (Lopressor) 50 mg PO BRKDIN [facility] Nifedipine (Procardia) 10 mg PO Q8 [facility] Last Admin: 08/20/17 05:59 Dose: Not Given Ondansetron HCl (Zofran Inj) 4 mg IVP Q4H PRN PRN Reason: Nausea/Vomiting - Labs Labs: 08/20/17 07:20 08/20/17 07:20 PT 10.6 Seconds (9.9-11.8) 08/17/17 17:22 INR 0.98 (0.93-1.08) 08/17/17 17:22 APTT 27.3 Seconds (23.7-30.8) 08/01/17 08:20 - Eye Exam Eye Exam: Normal appearance - ENT Exam ENT Exam: Mucous Membranes Dry - Respiratory Exam Respiratory Exam: NORMAL BREATHING PATTERN - Cardiovascular Exam Cardiovascular Exam: +S1, +S2 - GI/Abdominal Exam GI & Abdominal Exam: Normal Bowel Sounds - Extremities Exam Extremities Exam: Normal Inspection Assessment and Plan (1) Uterine cancer Assessment & Plan: stage IV with brain metastasis palliative radiotherapy when more clinically stable Status: Acute (2) Anemia Assessment & Plan: anemia of chronic disease Status: Acute
[2017-08-20 13:32] LABS: URINE BILIRUBIN NEGATIVE (NEGATIVE); URINE BLOOD MODERATE (NEGATIVE); URINE GLUCOSE (UA) NEGATIVE (NEGATIVE); URINE KETONE NEGATIVE (NEGATIVE); URINE LEUKOCYTE ESTERASE LARGE Leu/uL (NEGATIVE); URINE PROTEIN TRACE mg/dL (<30 mg/dL); URINE UROBILINOGEN 0.2 E.U./dL (<1 E.U./dL)
[2017-08-20 13:34] LABS: URINE APPEARANCE CLOUDY (CLEAR); URINE COLOR YELLOW (YELLOW)
[2017-08-20 13:38] LABS: URINE BACTERIA MANY (NEG)
[2017-08-20 13:39] LABS: URINE WBC 20 - 25 /hpf (0-6)
[2017-08-20] MEDS: Acetaminophen 650mg/20.3ml solution UD PO PRN (16:44)
[2017-08-20] MEDS ORDERED: Insulin Lispro (humaLOG) LOW Coverage SC SCH (17:15)
--- NOTE | 2017-08-20 17:46 | CP.PCM.PN ---
Subjective - Date & Time of Evaluation Date of Evaluation: 08/20/17 Time of Evaluation: 14:45 - Subjective Subjective: Infectious Disease Follow Up: August 20, 2017 73 yo female presented with fall and altered mental status. She was found at home on floor by family who heard her fall. The patient was brought into the ER and found to be in uncontrolled hypertension and requiring intubation on arrival in the ER. The patient was found to hae a 4.4 cm left occipital intracranial hemorrhage with intraventricular extension. Patient is recovering but still having episodes of low grade fevers. Patient herself is not making any new complaints. She still has residual right sided weakness. Afebrile in the past 48 hours. Repeat cultures sent. Cannot rule out central fever. Cultures negative to date from sets taken on 07/28/2017 and 07/29/2017. She was extubated 08/04/2017. Patient opens her eyes and can follow an occasional command such as squeezing hand. Noted family has rescinded DNR/DNI. Noted Radiation Oncology considering palliative radiation if the patient shows some reasonable improvement during this hospitalization. Blood cultures with coagulase negative staph which is most likely contamination. Patient can occasional commands. No new issues. Antibiotics completed. Poorly responsive. Poorly responsive. Noted that she failed swallow studies and required NG tube to be placed again. Patient is deteriorating. No new issues. Events of this morning noted. The patient was found tachycardic with low saturations. Had hypotension during Rapid Response today. She required intubation and ventilation. The patient's mental status remains extremely poor. Supportive care. Transferred to MICU. Objective - Vital Signs/Intake and Output Vital Signs (last 24 hours): Temp Pulse Resp BP Pulse Ox 101 F H 119 H 22 96/52 L 100 08/20/17 16:51 08/20/17 13:00 08/20/17 13:00 08/20/17 13:00 08/20/17 13:00 Intake and Output: 08/20/17 08/20/17 06:59 18:59 Intake Total 0 Output Total 350 Balance -350 - Medications Medications: Current Medications Acetaminophen (Tylenol 650mg/20.3ml Solution Ud) 650 mg PO Q6H PRN PRN Reason: Headache Last Admin: 08/20/17 16:44 Dose: 650 mg Artificial Tears (Artificial Tears Opht Oint) 0 gm OU BID [facility] Last Admin: 08/19/17 17:51 Dose: Not Given Baclofen (Lioresal) 20 mg PO [facility] Last Admin: 08/19/17 22:51 Dose: Not Given Chlorhexidine Gluconate (Peridex) 15 ml PO BID [facility] Levetiracetam (Keppra 500mg Ivpb) 500 mg in 100 mls @ 400 mls/hr IVPB Q12 [facility] Last Admin: 08/20/17 10:30 Dose: 400 mls/hr Aztreonam 500 mg/ Sodium (Chloride) 100 mls @ 100 mls/hr IVPB Q8 [facility] PRN Reason: Protocol Stop: 08/20/17 22:59 Last Admin: 08/20/17 14:00 Dose: 100 mls/hr Metronidazole (Flagyl) 500 mg in 100 mls @ 100 mls/hr IVPB Q8H [facility] PRN Reason: Protocol Sodium Chloride (Sodium Chloride 0.9%) 1,000 mls @ 250 mls/hr IV .Q4H [facility] Insulin Detemir (Levemir) 10 unit SC [facility] Last Admin: 08/19/17 22:50 Dose: 10 unit Insulin Human Lispro (Humalog Low) 0 units SC Q6H [facility] PRN Reason: Protocol Metoprolol Tartrate (Lopressor) 50 mg PO BRKDIN [facility] Last Admin: 08/20/17 16:33 Dose: Not Given Nifedipine (Procardia) 10 mg PO Q8 [facility] Last Admin: 08/20/17 16:34 Dose: Not Given Ondansetron HCl (Zofran Inj) 4 mg IVP Q4H PRN PRN Reason: Nausea/Vomiting - Labs Labs: 08/20/17 07:20 08/20/17 07:20 PT 10.6 Seconds (9.9-11.8) 08/17/17 17:22 INR 0.98 (0.93-1.08) 08/17/17 17:22 APTT 27.3 Seconds (23.7-30.8) 08/01/17 08:20 - Constitutional Appears: In Acute Distress, Chronically Ill - Head Exam Additional comments: intubated and ventilated. - Eye Exam Eye Exam: EOMI, PERRL Pupil Exam: NORMAL ACCOMODATION, PERRL - ENT Exam ENT Exam: Mucous Membranes Moist, Normal External Ear Exam, TM's Normal Bilaterally - Neck Exam Neck Exam: Full ROM, Normal Inspection - Respiratory Exam Respiratory Exam: Decreased Breath Sounds Additional comments: intubated and ventilated. - Cardiovascular Exam Cardiovascular Exam: Tachycardia, +S1, +S2 - GI/Abdominal Exam GI & Abdominal Exam: Soft, Normal Bowel Sounds. absent: Distended, Tenderness - Extremities Exam Extremities Exam: Full ROM, Normal Inspection - Neurological Exam Additional comments: AAO x 0, lethargic, left neglect, not following commands. Intubated and ventilated. - Psychiatric Exam Additional comments: Unable to Assess Assessment and Plan - Assessment and Plan (Free Text) Assessment: 73 yo female with low grade fevers of up to 100.4 F after suffering from a 4.4cm left occipital intracranial hemorrhage with intraventricular extension. The patient initially had fevers up to 101.7 F. Clinically, the patient has been improving. Supportive care. She was intubated on admission. She was extubated on 07/25/2017. She speaks belarusian mostly. The family states that the patient is acting and speaking appropriately other than the slurring of speech due to her right sided residual weakness. Alfredo cultures sent. There was a mild initial leukocytosis on admission but this has slowly improved. Fever trend has shown improvement. The cultures done to date have been negative so far. No consolidation seen on Chest X-ray. Patient answering question during interview and examination. Supportive care. Currently on Unasyn for antibiotic coverage. Noted C. Diff and repeat urine culture sent. No adequate sample for C. diff testing. Would obtain urinalysis. Was on Unasyn. The current temperature is more likely secondary to the recent intracranial hemorrhage. No Leukocytosis with WBC of 5.4 on 08/15/2017. Multiple culture sets performed to date are negative. Afebrile for the past 48 hours now. Cultures negative to date at greater than 48 hours. Cannot rule out central fever which is the most likely scenario. It appears as the hemorrhage improves the fevers are improving. The patient still with residual right sided weakness. Last CT done on 07/30/2017 showing interval evolution of known subacute hematoma in left occipital lobe without midline shift or herniation. Resolving intraventricular hemorrhage with residual mild intraventricular hemorrhage. Antibiotics completed. Extubated 08/04/2017. Able to follow occasional simple command. Supportive care. Poor medical terminologist prognosis given Uterine cancer with brain metastasis and the recent hemorrhagic CVA. No new infectious disease issues. Difficulty with feeds. NG tube had to be replaced and patient made NPO before NG tube placement. Patient dislodged NG tube a night ago. The patient is lethargic. At this point, she is not following commands. In morning of 08/20/2017, the patient had a rapid response and was intubated and ventilated. Transferred to MICU. Patient had episode of hypotension during rapid response as well as tachycardia. Thank you for allowing me to participate in the care of the patient, we will follow with you.
[2017-08-20] MEDS: Sodium Chloride 0.9% 1,000 ML IV SCH ×2 (18:37→22:45)
[2017-08-20] MEDS: metroNIDAZOLE IV 500 mg/100 ml 500 MG/100 ML BAG IVPB SCH (18:39)
[2017-08-20] MEDS: Chlorhexidine 0.12% Oral Sol 480 ml Bot PO SCH (18:41)
--- NOTE | 2017-08-20 19:35 | CARD ---
APPROVED REPORT EKG Measurement Heart [id number] MD [id number] <Conclusion> Sinus tachycardia Artifacts Abnormal ECG
[2017-08-20] MEDS: Mineral Oil/Petrolatum Opht Oint(3.5 gm) OU SCH (20:36)
[2017-08-20] MEDS: Insulin Detemir 100 units/ml Vial (Levemir) SC SCH (22:33)
[2017-08-20 22:54] VITALS: BP 94/50; PULSE 123
[2017-08-21] MEDS: Insulin Lispro (humaLOG) LOW Coverage SC SCH ×2 (03:25→07:01)
[2017-08-21] MEDS: Mineral Oil/Petrolatum Opht Oint(3.5 gm) OU SCH ×2 (03:28→07:56)
[2017-08-21] MEDS: metroNIDAZOLE IV 500 mg/100 ml 500 MG/100 ML BAG IVPB SCH ×2 (03:28→09:09)
[2017-08-21] MEDS: Sodium Chloride 0.9% 1,000 ML IV SCH ×2 (03:39→07:52)
[2017-08-21 05:35] LABS: ARTERIAL BLOOD GAS HCO3 14.9 mmol/L (21-28); ARTERIAL BLOOD GAS O2 CONTENT 14.9 ML/dl (15-23); ARTERIAL BLOOD GAS PH 7.44 (7.35-7.45); ARTERIAL BLOOD HGB O2 SAT 96.3 % (95.0-98.0); CARBOXYHEMOGLOBIN 2.1 % (0.5-1.5); HHB 0.4 % (0-5); METHEMOGLOBIN 1.2 % (0.0-3.0)
[2017-08-21 06:02] LABS: GRAN # 1.84 (1.4-6.5); GRAN % 68.9 % (50.0-68.0); HEMATOCRIT 25.7 % (36.0-48.0); LYMPH # 0.6 (1.2-3.4); LYMPH % 22.1 % (22.0-35.0); MEAN CELL VOLUME 91.1 fl (80.0-105.0); MEAN CORPUSCULAR HEMOGLOBIN 29.4 pg (25.0-35.0); MEAN CORPUSCULAR HGB CONC 32.3 g/dl (31.0-37.0); MEAN PLATELET VOLUME 9.5 fl (7.0-11.0); MONO # 0.2 (0.1-0.6); RED CELL DISTRIBUTION WIDTH 16.6 % (11.5-14.5)
[2017-08-21 06:20] LABS: WHITE BLOOD COUNT 2.7 10^3/ul (4.5-11.0)
[2017-08-21 06:55] LABS: BILIRUBIN,TOTAL 0.6 mg/dL (0.2-1.3); CALCIUM 8.2 mg/dL (8.4-10.5); POTASSIUM 4.5 mmol/L (3.6-5.0); TOTAL PROTEIN 5.3 g/dL (5.8-8.3)
[2017-08-21 07:56] VITALS: TEMP 99.6
[2017-08-21 07:57] LABS: MAGNESIUM 1.6 mg/dL (1.7-2.2); PHOSPHOROUS 5.2 mg/dL (2.5-4.5)
--- NOTE | 2017-08-21 08:17 | PN ---
DATE: 08/20/2017 [employer] TRIMMER NOTE SUBJECTIVE: Note that the patient is on the ventilator, she had respiratory failure, FiO2 at this time is 100% and NG tube is in place. The patient is stable hemodynamically, not requiring any pressors. It was felt that she may have had aspiration or possible pneumonia with respiratory failure. Note that the patient did have PEG tube in place that was nonfunctional and was removed and at this time does have NG tube in place. No active fever or chills. PHYSICAL EXAMINATION VITAL SIGNS: Note that her temperature is 99.2, her pulse is 127, respirations are 20, and blood pressure 114/43. SKIN: Warm and dry. HEENT: Head atraumatic, normocephalic. Eyes reactive to light. Ears, nose and throat seen to be within normal limits. NECK: Supple. No JVD. No thyroid enlargement. No lymph nodes. HEART: Regular rate and rhythm. Normal S1, S2 with tachycardiac. LUNGS: Reveal mild rhonchi at the bases. ABDOMEN: Soft. Decrease bowel sounds, but obese. GENITALIA: Deferred. RECTAL: Deferred. MUSCULOSKELETAL: No joint deformities. EXTREMITIES: Reveal positive lower extremity edema. NEUROLOGICAL: The patient is unresponsive on the ventilator. LABORATORY DATA: As far as her laboratories are concerned her white count is 2.2, hemoglobin is 10.8, hematocrit 33.5, with platelets of 235,000. Arterial blood gas is pending as well as sodium is 138, potassium 4.8, chloride 97, CO2 of 19, BUN 26, creatinine of 2.2, and glucose of 265. As far as chest x-ray it is pending. IMPRESSION: This patient had acute respiratory failure requiring ventilator support. I felt that there may be a component of aspiration pneumonia. The patient had episodes of hypotension, but once given fluids it corrected. 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 The patient also carries a diagnosis of anemia, diabetes, hypertension, and hyperlipidemia. PLAN: As far as our plan, we will continue with ventilator support and decrease the FiO2 as the patient tolerates. We will continue with bronchodilators and continue with IV fluids. We will monitor her hemodynamically closely. The patient is getting metronidazole, Keppra, and Zofran. We will continue to follow her chest x-ray and arterial blood gas closely. We will give her aggressive pulmonary toilet and continue to treatment aggressively along with the other consultants and the primary care doctor. Jovanny Harrington MD
[2017-08-21] MEDS: levETIRAcetam 500mg IVPB 500 MG/100 ML BAG IVPB SCH (09:09)
[2017-08-21] MEDS: Chlorhexidine 0.12% Oral Sol 480 ml Bot PO SCH (09:10)
[2017-08-21] MEDS ORDERED: Sodium Chloride 0.9% 1,000 ML IV SCH (09:15)
[2017-08-21 09:38] LABS: INR 1.14 (0.93-1.08); PARTIAL THROMBOPLASTIN TIME 31.1 Seconds (23.7-30.8)
--- NOTE | 2017-08-21 09:39 | CP.PCM.PRO ---
Pronouncement of Note - Clinical Findings Physical Exam: No Response Verbal/Painful Stimuli, Absent Peripheral Pulses{ Carotid & Femoral}, Absent Heart & Breath Sounds (absent heart sounds, breath sounds 2/2 ventilator), No Pupillary Light Reflex, No Corneal Reflex, Pupils Fixed & Dilated, Absence of Vital Signs - Pronouncement Time Time of Pronouncement of : 09:27 - Notifications Pronouncement Notifications: Family Notified (present at bedside, remaining family notified by phone by family member present), Atending Notified (at bedside) Brake Assembler Notified: No - Autopsy Autopsy Requested: No - [place] [id number]
--- NOTE | 2017-08-21 09:39 | CP.CCUPN ---
<Kenan Thurman - Last Filed: 08/21/17 09:36> CCU Subjective - Physician Review Events Since Last Encounter (Free Text): 08/21/17 09:36 Patient abruptly became bradycardic to 30's on bedside monitor during rounds, with bigeminy on bedside monitor. Atropine 0.5 IVP x1 given, HR improved to 60' s briefly, but then became progressively more bradycardic, back down to 30's. Carotid pulse unable to be palpated, but presence confirmed with bedside Doppler. Patient then lost pulse. Confirmed by family at bedside to be DNR. No breathing over vent, no auscultated heart sounds, no corneal reflex, no palpable or Dopplerable carotid or femoral pulses. Patient declared at 9:27 AM 08/21/17. Family at bedside, emotional support provided. CCU Objective - Physical Exam Head: Positive for: Other ([place] from surgical wound site, without signs of infection) Pupils: Positive for: PERRL Extroacular Muscles: Positive for: EOMI Conjunctiva: Positive for: Normal Mouth: Positive for: Moist Mucous Membranes Neck: Positive for: Normal Range of Motion Respiratory/Chest: Positive for: Clear to Auscultation, Good Air Exchange. Negative for: Respiratory Distress, Accessory Muscle Use Cardiovascular: Positive for: Regular Rate and Rhythm, Normal S1, S2. Negative for: Murmurs Abdomen: Positive for: Normal Bowel Sounds. Negative for: Tenderness, Distention, Peritoneal Signs Back: Positive for: Normal Inspection Upper Extremity: Negative for: Cyanosis, Edema Lower Extremity: Negative for: Edema Neurological: Negative for: GCS=15 Skin: Positive for: Dry, Pale. Negative for: Rashes Psychiatric: Negative for: Alert, Oriented x 3 - Medications Active Medications: Active Medications Generic Name Dose Route Start Last Admin Trade Name Freq PRN Reason Stop Dose Admin Acetaminophen 650 mg 08/06/17 11:13 08/20/17 16:44 Tylenol 650mg/20.3ml Solution Ud PO 650 mg Q6H PRN Administration Headache Artificial Tears 1 gm 08/20/17 20:00 08/21/17 07:56 Artificial Tears Opht Oint OU 1 drop Q6H VANIA Administration Baclofen 20 mg 08/10/17 22:00 08/19/17 22:51 Lioresal PO Not Given HS VANIA Chlorhexidine Gluconate 15 ml 08/20/17 18:00 08/21/17 09:10 Peridex PO 15 ml BID VANIA Administration Levetiracetam 500 mg in 100 mls @ 400 mls/hr 08/17/17 22:00 08/21/17 09:09 Keppra 500mg Ivpb IVPB 400 mls/hr Q12 VANIA Administration Metronidazole 500 mg in 100 mls @ 100 mls/hr 08/20/17 18:00 08/21/17 09:09 Flagyl IVPB 100 mls/hr Q8H VANIA Administration Protocol Acetaminophen 1,000 mg in 100 mls @ 400 mls/hr 08/21/17 08:52 08/21/17 09:08 Ofirmev IVPB 08/23/17 08:53 400 mls/hr Q6H PRN Administration Temperature >= 100.4 Sodium Chloride 1,000 mls @ 150 mls/hr 08/21/17 09:15 Sodium Chloride 0.9% IV .[id number] [facility] Insulin Detemir 10 unit 08/15/17 11:37 08/20/17 22:33 Levemir SC Not Given HS [facility] Insulin Human Lispro 0 units 08/20/17 20:37 08/21/17 07:01 Humalog Low SC Not Given Q6 [facility] Protocol Metoprolol Tartrate 50 mg 08/20/17 08:44 08/20/17 16:33 Lopressor PO Not Given BRKDIN [facility] Ondansetron HCl 4 mg 08/18/17 10:54 Zofran Inj IVP Q4H PRN Nausea/Vomiting - Patient Studies Lab Studies: Lab Studies 08/21/17 08/21/17 08/21/17 Range/Units 07:38 07:00 05:18 WBC (4.5-11.0) 10^3/ul RBC (3.5-6.1) 10^6/uL Hgb (12.0-16.0) g/dL Hct (36.0-48.0) % MCV (80.0-105.0) fl MCH (25.0-35.0) pg MCHC (31.0-37.0) g/dl RDW (11.5-14.5) % Plt Count (120.0-450.0) 10^3/uL MPV (7.0-11.0) fl Gran % (50.0-68.0) % Lymph % (Auto) (22.0-35.0) % Riley % (Auto) (1.0-6.0) % Eos % (Auto) (1.5-5.0) % Baso % (Auto) (0.0-3.0) % Gran # (1.4-6.5) Lymph # (1.2-3.4) Riley # (0.1-0.6) Eos # (0.0-0.7) Baso # (0.0-2.0) K/mm3 pCO2 22 L (35-45) mm/Hg pO2 139.0 H (80-100) mm/Hg HCO3 14.9 L (21-28) mmol/L ABG pH 7.44 (7.35-7.45) ABG Total CO2 15.6 L (22-28) mmol.L ABG O2 Saturation 99.6 H (95-98) % ABG O2 Content 14.9 L (15-23) ML/dl ABG Base Excess -7.6 L (-2.0-3.0) mmol/L ABG Hemoglobin 10.8 L (11.7-17.4) g/dL ABG Carboxyhemoglobin 2.1 H (0.5-1.5) % POC ABG HHb (Measured) 0.4 (0-5) % ABG Methemoglobin 1.2 (0.0-3.0) % ABG O2 Capacity 15.0 L (16-24) mL/dl Hgb O2 Saturation 96.3 (95.0-98.0) % FiO2 50.0 % Sodium (132-148) mmol/L Potassium (3.6-5.0) mmol/L Chloride (98-107) mmol/L Carbon Dioxide (21-33) mmol/L Anion Gap (10-20) BUN (7-21) mg/dL Creatinine (0.7-1.2) mg/dL Est GFR ( Amer) Est GFR (Non-Af Amer) POC Glucose (mg/dL) 150 H (65-110) mg/dL Random Glucose (70-110) mg/dL Lactic Acid (0.7-2.1) mmol/L Calcium (8.4-10.5) mg/dL Phosphorus 5.2 H (2.5-4.5) mg/dL Magnesium 1.6 L (1.7-2.2) mg/dL Total Bilirubin (0.2-1.3) mg/dL AST (14-36) U/L ALT (7-56) U/L Alkaline Phosphatase (38-126) U/L Total Protein (5.8-8.3) g/dL Albumin (3.0-4.8) g/dL Globulin gm/dL Albumin/Globulin Ratio (1.1-1.8) Procalcitonin (0.19-0.49) NG/ML Urine Color (YELLOW) Urine Appearance (CLEAR) Urine pH (4.7-8.0) Ur Specific [place] (1.005-1.035) Urine Protein (<30 mg/dL) mg/dL Urine Glucose (UA) (NEGATIVE) mg/dL Urine Ketones (NEGATIVE) mg/dL Urine Blood (NEGATIVE) Urine Nitrate (NEGATIVE) Urine Bilirubin (NEGATIVE) Urine Urobilinogen (<1 E.U./dL) E.U./dL Ur Leukocyte Esterase (NEGATIVE) Pavel/uL Urine RBC (0-2) /hpf Urine WBC (0-6) /hpf Ur Epithelial Cells (0-5) /hpf Urine Bacteria (NEG) Ur Random Creatinine mg/dL Ur Random Sodium 08/21/17 08/21/17 08/20/17 Range/Units 05:00 05:00 21:57 WBC 2.7 L* D (4.5-11.0) 10^3/ul RBC 2.82 L (3.5-6.1) 10^6/uL Hgb 8.3 L D (12.0-16.0) g/dL Hct 25.7 L (36.0-48.0) % MCV 91.1 (80.0-105.0) fl MCH 29.4 (25.0-35.0) pg MCHC 32.3 (31.0-37.0) g/dl RDW 16.6 H (11.5-14.5) % Plt Count 169 (120.0-450.0) 10^3/uL MPV 9.5 (7.0-11.0) fl Gran % 68.9 H (50.0-68.0) % Lymph % (Auto) 22.1 (22.0-35.0) % Riley % (Auto) 9.0 H (1.0-6.0) % Eos % (Auto) 0.0 L (1.5-5.0) % Baso % (Auto) 0.0 (0.0-3.0) % Gran # 1.84 (1.4-6.5) Lymph # 0.6 L (1.2-3.4) Riley # 0.2 (0.1-0.6) Eos # 0.0 (0.0-0.7) Baso # 0.00 (0.0-2.0) K/mm3 pCO2 (35-45) mm/Hg pO2 (80-100) mm/Hg HCO3 (21-28) mmol/L ABG pH (7.35-7.45) ABG Total CO2 (22-28) mmol.L ABG O2 Saturation (95-98) % ABG O2 Content (15-23) ML/dl ABG Base Excess (-2.0-3.0) mmol/L ABG Hemoglobin (11.7-17.4) g/dL ABG Carboxyhemoglobin (0.5-1.5) % POC ABG HHb (Measured) (0-5) % ABG Methemoglobin (0.0-3.0) % ABG O2 Capacity (16-24) mL/dl Hgb O2 Saturation (95.0-98.0) % FiO2 % Sodium 143 (132-148) mmol/L Potassium 4.5 (3.6-5.0) mmol/L Chloride 110 H (98-107) mmol/L Carbon Dioxide 16 L (21-33) mmol/L Anion Gap 22 H (10-20) BUN 38 H (7-21) mg/dL Creatinine 2.9 H (0.7-1.2) mg/dL Est GFR ( Amer) 20 Est GFR (Non-Af Amer) 16 POC Glucose (mg/dL) 120 H (65-110) mg/dL Random Glucose 106 (70-110) mg/dL Lactic Acid (0.7-2.1) mmol/L Calcium 8.2 L (8.4-10.5) mg/dL Phosphorus (2.5-4.5) mg/dL Magnesium (1.7-2.2) mg/dL Total Bilirubin 0.6 (0.2-1.3) mg/dL AST 40 H D (14-36) U/L ALT 28 (7-56) U/L Alkaline Phosphatase 81 (38-126) U/L Total Protein 5.3 L (5.8-8.3) g/dL Albumin 2.6 L (3.0-4.8) g/dL Globulin 2.6 gm/dL Albumin/Globulin Ratio 1.0 L (1.1-1.8) Procalcitonin (0.19-0.49) NG/ML Urine Color (YELLOW) Urine Appearance (CLEAR) Urine pH (4.7-8.0) Ur Specific [place] (1.005-1.035) Urine Protein (<30 mg/dL) mg/dL Urine Glucose (UA) (NEGATIVE) mg/dL Urine Ketones (NEGATIVE) mg/dL Urine Blood (NEGATIVE) Urine Nitrate (NEGATIVE) Urine Bilirubin (NEGATIVE) Urine Urobilinogen (<1 E.U./dL) E.U./dL Ur Leukocyte Esterase (NEGATIVE) Pavel/uL Urine RBC (0-2) /hpf Urine WBC (0-6) /hpf Ur Epithelial Cells (0-5) /hpf Urine Bacteria (NEG) Ur Random Creatinine mg/dL Ur Random Sodium 08/20/17 08/20/17 08/20/17 Range/Units 19:23 18:37 16:34 WBC (4.5-11.0) 10^3/ul RBC (3.5-6.1) 10^6/uL Hgb (12.0-16.0) g/dL Hct (36.0-48.0) % MCV (80.0-105.0) fl MCH (25.0-35.0) pg MCHC (31.0-37.0) g/dl RDW (11.5-14.5) % Plt Count (120.0-450.0) 10^3/uL MPV (7.0-11.0) fl Gran % (50.0-68.0) % Lymph % (Auto) (22.0-35.0) % Riley % (Auto) (1.0-6.0) % Eos % (Auto) (1.5-5.0) % Baso % (Auto) (0.0-3.0) % Gran # (1.4-6.5) Lymph # (1.2-3.4) Riley # (0.1-0.6) Eos # (0.0-0.7) Baso # (0.0-2.0) K/mm3 pCO2 (35-45) mm/Hg pO2 (80-100) mm/Hg HCO3 (21-28) mmol/L ABG pH (7.35-7.45) ABG Total CO2 (22-28) mmol.L ABG O2 Saturation (95-98) % ABG O2 Content (15-23) ML/dl ABG Base Excess (-2.0-3.0) mmol/L ABG Hemoglobin (11.7-17.4) g/dL ABG Carboxyhemoglobin (0.5-1.5) % POC ABG HHb (Measured) (0-5) % ABG Methemoglobin (0.0-3.0) % ABG O2 Capacity (16-24) mL/dl Hgb O2 Saturation (95.0-98.0) % FiO2 % Sodium (132-148) mmol/L Potassium (3.6-5.0) mmol/L Chloride (98-107) mmol/L Carbon Dioxide (21-33) mmol/L Anion Gap (10-20) BUN (7-21) mg/dL Creatinine (0.7-1.2) mg/dL Est GFR ( Amer) Est GFR (Non-Af Amer) POC Glucose (mg/dL) 152 H 163 H (65-110) mg/dL Random Glucose (70-110) mg/dL Lactic Acid 4.1 H* (0.7-2.1) mmol/L Calcium (8.4-10.5) mg/dL Phosphorus (2.5-4.5) mg/dL Magnesium (1.7-2.2) mg/dL Total Bilirubin (0.2-1.3) mg/dL AST (14-36) U/L ALT (7-56) U/L Alkaline Phosphatase (38-126) U/L Total Protein (5.8-8.3) g/dL Albumin (3.0-4.8) g/dL Globulin gm/dL Albumin/Globulin Ratio (1.1-1.8) Procalcitonin (0.19-0.49) NG/ML Urine Color (YELLOW) Urine Appearance (CLEAR) Urine pH (4.7-8.0) Ur Specific [place] (1.005-1.035) Urine Protein (<30 mg/dL) mg/dL Urine Glucose (UA) (NEGATIVE) mg/dL Urine Ketones (NEGATIVE) mg/dL Urine Blood (NEGATIVE) Urine Nitrate (NEGATIVE) Urine Bilirubin (NEGATIVE) Urine Urobilinogen (<1 E.U./dL) E.U./dL Ur Leukocyte Esterase (NEGATIVE) Pavel/uL Urine RBC (0-2) /hpf Urine WBC (0-6) /hpf Ur Epithelial Cells (0-5) /hpf Urine Bacteria (NEG) Ur Random Creatinine mg/dL Ur Random Sodium 08/20/17 08/20/17 08/20/17 Range/Units 13:50 12:30 12:30 WBC (4.5-11.0) 10^3/ul RBC (3.5-6.1) 10^6/uL Hgb (12.0-16.0) g/dL Hct (36.0-48.0) % MCV (80.0-105.0) fl MCH (25.0-35.0) pg MCHC (31.0-37.0) g/dl RDW (11.5-14.5) % Plt Count (120.0-450.0) 10^3/uL MPV (7.0-11.0) fl Gran % (50.0-68.0) % Lymph % (Auto) (22.0-35.0) % Riley % (Auto) (1.0-6.0) % Eos % (Auto) (1.5-5.0) % Baso % (Auto) (0.0-3.0) % Gran # (1.4-6.5) Lymph # (1.2-3.4) Riley # (0.1-0.6) Eos # (0.0-0.7) Baso # (0.0-2.0) K/mm3 pCO2 (35-45) mm/Hg pO2 (80-100) mm/Hg HCO3 (21-28) mmol/L ABG pH (7.35-7.45) ABG Total CO2 (22-28) mmol.L ABG O2 Saturation (95-98) % ABG O2 Content (15-23) ML/dl ABG Base Excess (-2.0-3.0) mmol/L ABG Hemoglobin (11.7-17.4) g/dL ABG Carboxyhemoglobin (0.5-1.5) % POC ABG HHb (Measured) (0-5) % ABG Methemoglobin (0.0-3.0) % ABG O2 Capacity (16-24) mL/dl Hgb O2 Saturation (95.0-98.0) % FiO2 % Sodium (132-148) mmol/L Potassium (3.6-5.0) mmol/L Chloride (98-107) mmol/L Carbon Dioxide (21-33) mmol/L Anion Gap (10-20) BUN (7-21) mg/dL Creatinine (0.7-1.2) mg/dL Est GFR ( Amer) Est GFR (Non-Af Amer) POC Glucose (mg/dL) (65-110) mg/dL Random Glucose (70-110) mg/dL Lactic Acid 4.3 H* (0.7-2.1) mmol/L Calcium (8.4-10.5) mg/dL Phosphorus (2.5-4.5) mg/dL Magnesium (1.7-2.2) mg/dL Total Bilirubin (0.2-1.3) mg/dL AST (14-36) U/L ALT (7-56) U/L Alkaline Phosphatase (38-126) U/L Total Protein (5.8-8.3) g/dL Albumin (3.0-4.8) g/dL Globulin gm/dL Albumin/Globulin Ratio (1.1-1.8) Procalcitonin (0.19-0.49) NG/ML Urine Color Yellow (YELLOW) Urine Appearance Cloudy (CLEAR) Urine pH 5.0 (4.7-8.0) Ur Specific [place] 1.015 (1.005-1.035) Urine Protein Trace H (<30 mg/dL) mg/dL Urine Glucose (UA) Negative (NEGATIVE) mg/dL Urine Ketones Negative (NEGATIVE) mg/dL Urine Blood Moderate H (NEGATIVE) Urine Nitrate Negative (NEGATIVE) Urine Bilirubin Negative (NEGATIVE) Urine Urobilinogen 0.2 (<1 E.U./dL) E.U./dL Ur Leukocyte Esterase Large H (NEGATIVE) Pavel/uL Urine RBC 2 - 5 (0-2) /hpf Urine WBC 20 - 25 (0-6) /hpf Ur Epithelial Cells 1 - 3 (0-5) /hpf Urine Bacteria Many (NEG) Ur Random Creatinine mg/dL Ur Random Sodium 13 08/20/17 08/20/17 08/20/17 Range/Units 12:30 11:17 10:32 WBC (4.5-11.0) 10^3/ul RBC (3.5-6.1) 10^6/uL Hgb (12.0-16.0) g/dL Hct (36.0-48.0) % MCV (80.0-105.0) fl MCH (25.0-35.0) pg MCHC (31.0-37.0) g/dl RDW (11.5-14.5) % Plt Count (120.0-450.0) 10^3/uL MPV (7.0-11.0) fl Gran % (50.0-68.0) % Lymph % (Auto) (22.0-35.0) % Riley % (Auto) (1.0-6.0) % Eos % (Auto) (1.5-5.0) % Baso % (Auto) (0.0-3.0) % Gran # (1.4-6.5) Lymph # (1.2-3.4) Riley # (0.1-0.6) Eos # (0.0-0.7) Baso # (0.0-2.0) K/mm3 pCO2 27 L (35-45) mm/Hg pO2 334.0 H (80-100) mm/Hg HCO3 17.9 L (21-28) mmol/L ABG pH 7.43 (7.35-7.45) ABG Total CO2 18.7 L (22-28) mmol.L ABG O2 Saturation 100.5 H (95-98) % ABG O2 Content 13.3 L (15-23) ML/dl ABG Base Excess -5.5 L (-2.0-3.0) mmol/L ABG Hemoglobin 9.0 L (11.7-17.4) g/dL ABG Carboxyhemoglobin 1.8 H (0.5-1.5) % POC ABG HHb (Measured) -0.5 L (0-5) % ABG Methemoglobin 0.5 (0.0-3.0) % ABG O2 Capacity 13.2 L (16-24) mL/dl Hgb O2 Saturation 98.2 H (95.0-98.0) % FiO2 100.0 % Sodium (132-148) mmol/L Potassium (3.6-5.0) mmol/L Chloride (98-107) mmol/L Carbon Dioxide (21-33) mmol/L Anion Gap (10-20) BUN (7-21) mg/dL Creatinine (0.7-1.2) mg/dL Est GFR ( Amer) Est GFR (Non-Af Amer) POC Glucose (mg/dL) 220 H (65-110) mg/dL Random Glucose (70-110) mg/dL Lactic Acid (0.7-2.1) mmol/L Calcium (8.4-10.5) mg/dL Phosphorus (2.5-4.5) mg/dL Magnesium (1.7-2.2) mg/dL Total Bilirubin (0.2-1.3) mg/dL AST (14-36) U/L ALT (7-56) U/L Alkaline Phosphatase (38-126) U/L Total Protein (5.8-8.3) g/dL Albumin (3.0-4.8) g/dL Globulin gm/dL Albumin/Globulin Ratio (1.1-1.8) Procalcitonin (0.19-0.49) NG/ML Urine Color (YELLOW) Urine Appearance (CLEAR) Urine pH (4.7-8.0) Ur Specific [place] (1.005-1.035) Urine Protein (<30 mg/dL) mg/dL Urine Glucose (UA) (NEGATIVE) mg/dL Urine Ketones (NEGATIVE) mg/dL Urine Blood (NEGATIVE) Urine Nitrate (NEGATIVE) Urine Bilirubin (NEGATIVE) Urine Urobilinogen (<1 E.U./dL) E.U./dL Ur Leukocyte Esterase (NEGATIVE) Pavel/uL Urine RBC (0-2) /hpf Urine WBC (0-6) /hpf Ur Epithelial Cells (0-5) /hpf Urine Bacteria (NEG) Ur Random Creatinine 63 mg/dL Ur Random Sodium Cancelled 08/20/17 08/20/17 08/20/17 Range/Units 09:35 09:35 09:11 WBC (4.5-11.0) 10^3/ul RBC (3.5-6.1) 10^6/uL Hgb (12.0-16.0) g/dL Hct (36.0-48.0) % MCV (80.0-105.0) fl MCH (25.0-35.0) pg MCHC (31.0-37.0) g/dl RDW (11.5-14.5) % Plt Count (120.0-450.0) 10^3/uL MPV (7.0-11.0) fl Gran % (50.0-68.0) % Lymph % (Auto) (22.0-35.0) % Riley % (Auto) (1.0-6.0) % Eos % (Auto) (1.5-5.0) % Baso % (Auto) (0.0-3.0) % Gran # (1.4-6.5) Lymph # (1.2-3.4) Riley # (0.1-0.6) Eos # (0.0-0.7) Baso # (0.0-2.0) K/mm3 pCO2 (35-45) mm/Hg pO2 (80-100) mm/Hg HCO3 (21-28) mmol/L ABG pH (7.35-7.45) ABG Total CO2 (22-28) mmol.L ABG O2 Saturation (95-98) % ABG O2 Content (15-23) ML/dl ABG Base Excess (-2.0-3.0) mmol/L ABG Hemoglobin (11.7-17.4) g/dL ABG Carboxyhemoglobin (0.5-1.5) % POC ABG HHb (Measured) (0-5) % ABG Methemoglobin (0.0-3.0) % ABG O2 Capacity (16-24) mL/dl Hgb O2 Saturation (95.0-98.0) % FiO2 % Sodium (132-148) mmol/L Potassium (3.6-5.0) mmol/L Chloride (98-107) mmol/L Carbon Dioxide (21-33) mmol/L Anion Gap (10-20) BUN (7-21) mg/dL Creatinine (0.7-1.2) mg/dL Est GFR ( Amer) Est GFR (Non-Af Amer) POC Glucose (mg/dL) 246 H (65-110) mg/dL Random Glucose (70-110) mg/dL Lactic Acid 5.6 H* (0.7-2.1) mmol/L Calcium (8.4-10.5) mg/dL Phosphorus (2.5-4.5) mg/dL Magnesium (1.7-2.2) mg/dL Total Bilirubin (0.2-1.3) mg/dL AST (14-36) U/L ALT (7-56) U/L Alkaline Phosphatase (38-126) U/L Total Protein (5.8-8.3) g/dL Albumin (3.0-4.8) g/dL Globulin gm/dL Albumin/Globulin Ratio (1.1-1.8) Procalcitonin 124.71 H (0.19-0.49) NG/ML Urine Color (YELLOW) Urine Appearance (CLEAR) Urine pH (4.7-8.0) Ur Specific [place] (1.005-1.035) Urine Protein (<30 mg/dL) mg/dL Urine Glucose (UA) (NEGATIVE) mg/dL Urine Ketones (NEGATIVE) mg/dL Urine Blood (NEGATIVE) Urine Nitrate (NEGATIVE) Urine Bilirubin (NEGATIVE) Urine Urobilinogen (<1 E.U./dL) E.U./dL Ur Leukocyte Esterase (NEGATIVE) Pavel/uL Urine RBC (0-2) /hpf Urine WBC (0-6) /hpf Ur Epithelial Cells (0-5) /hpf Urine Bacteria (NEG) Ur Random Creatinine mg/dL Ur Random Sodium Laboratory Results - last 24 hr 08/20/17 08/20/17 08/20/17 09:11 09:35 09:35 WBC RBC Hgb Hct MCV MCH MCHC RDW Plt Count MPV Gran % Lymph % (Auto) Riley % (Auto) Eos % (Auto) Baso % (Auto) Gran # Lymph # Riley # Eos # Baso # pCO2 pO2 HCO3 ABG pH ABG Total CO2 ABG O2 Saturation ABG O2 Content ABG Base Excess ABG Hemoglobin ABG Carboxyhemoglobin POC ABG HHb (Measured) ABG Methemoglobin ABG O2 Capacity Hgb O2 Saturation FiO2 Sodium Potassium Chloride Carbon Dioxide Anion Gap BUN Creatinine Est GFR ( Amer) Est GFR (Non-Af Amer) POC Glucose (mg/dL) 246 H Random Glucose Lactic Acid 5.6 H* Calcium Phosphorus Magnesium Total Bilirubin AST ALT Alkaline Phosphatase Total Protein Albumin Globulin Albumin/Globulin Ratio Procalcitonin 124.71 H Urine Color Urine Appearance Urine pH Ur Specific [place] Urine Protein Urine Glucose (UA) Urine Ketones Urine Blood Urine Nitrate Urine Bilirubin Urine Urobilinogen Ur Leukocyte Esterase Urine RBC Urine WBC Ur Epithelial Cells Urine Bacteria Ur Random Creatinine Ur Random Sodium 08/20/17 08/20/17 08/20/17 10:32 11:17 12:30 WBC RBC Hgb Hct MCV MCH MCHC RDW Plt Count MPV Gran % Lymph % (Auto) Riley % (Auto) Eos % (Auto) Baso % (Auto) Gran # Lymph # Riley # Eos # Baso # pCO2 27 L pO2 334.0 H HCO3 17.9 L ABG pH 7.43 ABG Total CO2 18.7 L ABG O2 Saturation 100.5 H ABG O2 Content 13.3 L ABG Base Excess -5.5 L ABG Hemoglobin 9.0 L ABG Carboxyhemoglobin 1.8 H POC ABG HHb (Measured) -0.5 L ABG Methemoglobin 0.5 ABG O2 Capacity 13.2 L Hgb O2 Saturation 98.2 H FiO2 100.0 Sodium Potassium Chloride Carbon Dioxide Anion Gap BUN Creatinine Est GFR ( Amer) Est GFR (Non-Af Amer) POC Glucose (mg/dL) 220 H Random Glucose Lactic Acid Calcium Phosphorus Magnesium Total Bilirubin AST ALT Alkaline Phosphatase Total Protein Albumin Globulin Albumin/Globulin Ratio Procalcitonin Urine Color Urine Appearance Urine pH Ur Specific [place] Urine Protein Urine Glucose (UA) Urine Ketones Urine Blood Urine Nitrate Urine Bilirubin Urine Urobilinogen Ur Leukocyte Esterase Urine RBC Urine WBC Ur Epithelial Cells Urine Bacteria Ur Random Creatinine 63 Ur Random Sodium Cancelled 08/20/17 08/20/17 08/20/17 12:30 12:30 13:50 WBC RBC Hgb Hct MCV MCH MCHC RDW Plt Count MPV Gran % Lymph % (Auto) Riley % (Auto) Eos % (Auto) Baso % (Auto) Gran # Lymph # Riley # Eos # Baso # pCO2 pO2 HCO3 ABG pH ABG Total CO2 ABG O2 Saturation ABG O2 Content ABG Base Excess ABG Hemoglobin ABG Carboxyhemoglobin POC ABG HHb (Measured) ABG Methemoglobin ABG O2 Capacity Hgb O2 Saturation FiO2 Sodium Potassium Chloride Carbon Dioxide Anion Gap BUN Creatinine Est GFR ( Amer) Est GFR (Non-Af Amer) POC Glucose (mg/dL) Random Glucose Lactic Acid 4.3 H* Calcium Phosphorus Magnesium Total Bilirubin AST ALT Alkaline Phosphatase Total Protein Albumin Globulin Albumin/Globulin Ratio Procalcitonin Urine Color Yellow Urine Appearance Cloudy Urine pH 5.0 Ur Specific [place] 1.015 Urine Protein Trace H Urine Glucose (UA) Negative Urine Ketones Negative Urine Blood Moderate H Urine Nitrate Negative Urine Bilirubin Negative Urine Urobilinogen 0.2 Ur Leukocyte Esterase Large H Urine RBC 2 - 5 Urine WBC 20 - 25 Ur Epithelial Cells 1 - 3 Urine Bacteria Many Ur Random Creatinine Ur Random Sodium 13 08/20/17 08/20/17 08/20/17 16:34 18:37 19:23 WBC RBC Hgb Hct MCV MCH MCHC RDW Plt Count MPV Gran % Lymph % (Auto) Riley % (Auto) Eos % (Auto) Baso % (Auto) Gran # Lymph # Riley # Eos # Baso # pCO2 pO2 HCO3 ABG pH ABG Total CO2 ABG O2 Saturation ABG O2 Content ABG Base Excess ABG Hemoglobin ABG Carboxyhemoglobin POC ABG HHb (Measured) ABG Methemoglobin ABG O2 Capacity Hgb O2 Saturation FiO2 Sodium Potassium Chloride Carbon Dioxide Anion Gap BUN Creatinine Est GFR ( Amer) Est GFR (Non-Af Amer) POC Glucose (mg/dL) 163 H 152 H Random Glucose Lactic Acid 4.1 H* Calcium Phosphorus Magnesium Total Bilirubin AST ALT Alkaline Phosphatase Total Protein Albumin Globulin Albumin/Globulin Ratio Procalcitonin Urine Color Urine Appearance Urine pH Ur Specific [place] Urine Protein Urine Glucose (UA) Urine Ketones Urine Blood Urine Nitrate Urine Bilirubin Urine Urobilinogen Ur Leukocyte Esterase Urine RBC Urine WBC Ur Epithelial Cells Urine Bacteria Ur Random Creatinine Ur Random Sodium 08/20/17 08/21/17 08/21/17 21:57 05:00 05:00 WBC 2.7 L* D RBC 2.82 L Hgb 8.3 L D Hct 25.7 L MCV 91.1 MCH 29.4 MCHC 32.3 RDW 16.6 H Plt Count 169 MPV 9.5 Gran % 68.9 H Lymph % (Auto) 22.1 Riley % (Auto) 9.0 H Eos % (Auto) 0.0 L Baso % (Auto) 0.0 Gran # 1.84 Lymph # 0.6 L Riley # 0.2 Eos # 0.0 Baso # 0.00 pCO2 pO2 HCO3 ABG pH ABG Total CO2 ABG O2 Saturation ABG O2 Content ABG Base Excess ABG Hemoglobin ABG Carboxyhemoglobin POC ABG HHb (Measured) ABG Methemoglobin ABG O2 Capacity Hgb O2 Saturation FiO2 Sodium 143 Potassium 4.5 Chloride 110 H Carbon Dioxide 16 L Anion Gap 22 H BUN 38 H Creatinine 2.9 H Est GFR ( Amer) 20 Est GFR (Non-Af Amer) 16 POC Glucose (mg/dL) 120 H Random Glucose 106 Lactic Acid Calcium 8.2 L Phosphorus Magnesium Total Bilirubin 0.6 AST 40 H D ALT 28 Alkaline Phosphatase 81 Total Protein 5.3 L Albumin 2.6 L Globulin 2.6 Albumin/Globulin Ratio 1.0 L Procalcitonin Urine Color Urine Appearance Urine pH Ur Specific [place] Urine Protein Urine Glucose (UA) Urine Ketones Urine Blood Urine Nitrate Urine Bilirubin Urine Urobilinogen Ur Leukocyte Esterase Urine RBC Urine WBC Ur Epithelial Cells Urine Bacteria Ur Random Creatinine Ur Random Sodium 08/21/17 08/21/17 08/21/17 05:18 07:00 07:38 WBC RBC Hgb Hct MCV MCH MCHC RDW Plt Count MPV Gran % Lymph % (Auto) Riley % (Auto) Eos % (Auto) Baso % (Auto) Gran # Lymph # Riley # Eos # Baso # pCO2 22 L pO2 139.0 H HCO3 14.9 L ABG pH 7.44 ABG Total CO2 15.6 L ABG O2 Saturation 99.6 H ABG O2 Content 14.9 L ABG Base Excess -7.6 L ABG Hemoglobin 10.8 L ABG Carboxyhemoglobin 2.1 H POC ABG HHb (Measured) 0.4 ABG Methemoglobin 1.2 ABG O2 Capacity 15.0 L Hgb O2 Saturation 96.3 FiO2 50.0 Sodium Potassium Chloride Carbon Dioxide Anion Gap BUN Creatinine Est GFR ( Amer) Est GFR (Non-Af Amer) POC Glucose (mg/dL) 150 H Random Glucose Lactic Acid Calcium Phosphorus 5.2 H Magnesium 1.6 L Total Bilirubin AST ALT Alkaline Phosphatase Total Protein Albumin Globulin Albumin/Globulin Ratio Procalcitonin Urine Color Urine Appearance Urine pH Ur Specific [place] Urine Protein Urine Glucose (UA) Urine Ketones Urine Blood Urine Nitrate Urine Bilirubin Urine Urobilinogen Ur Leukocyte Esterase Urine RBC Urine WBC Ur Epithelial Cells Urine Bacteria Ur Random Creatinine Ur Random Sodium Fingerstick Blood Sugar Results: 150 <Oleksandr [place] - Last Filed: 08/21/17 11:24> CCU Subjective - Physician Review Events Since Last Encounter (Free Text): Patient seen on rounds, became bradycardic, HR 40s, given Atropine x 1, bigeminy on the monitor, HR improved to 60s, sinus. Patient then lost pulse, confirmed with Doppler, NO carotid, NO femoral pulse. No heart sound, no corneal reflex. Patient DNR. Patients at the bedside. Patient pronounced at 9:27 am. Family at the bedside, notified. 08/21/17 11:20 CCU Objective - Vital Signs / Intake & Output Vital Signs (Last 4 hours): Vital Signs Resp Pulse Ox 08/21/17 07:36 33 H 100 - Medications Active Medications: Active Medications Generic Name Dose Route Start Last Admin Trade Name Freq PRN Reason Stop Dose Admin Artificial Tears 1 gm 08/20/17 20:00 08/21/17 07:56 Artificial Tears Opht Oint OU 1 drop Q6H VANIA Administration Baclofen 20 mg 08/10/17 22:00 08/19/17 22:51 Lioresal PO Not Given HS VANIA Chlorhexidine Gluconate 15 ml 08/20/17 18:00 08/21/17 09:10 Peridex PO 15 ml BID VANIA Administration Levetiracetam 500 mg in 100 mls @ 400 mls/hr 08/17/17 22:00 08/21/17 09:09 Keppra 500mg Ivpb IVPB 400 mls/hr Q12 VANIA Administration Metronidazole 500 mg in 100 mls @ 100 mls/hr 08/20/17 18:00 08/21/17 09:09 Flagyl IVPB 100 mls/hr Q8H VANIA Administration Protocol Acetaminophen 1,000 mg in 100 mls @ 400 mls/hr 08/21/17 08:52 08/21/17 09:08 Ofirmev IVPB 08/23/17 08:53 400 mls/hr Q6H PRN Administration Temperature >= 100.4 Sodium Chloride 1,000 mls @ 150 mls/hr 08/21/17 09:15 Sodium Chloride 0.9% IV .[id number] [facility] Insulin Detemir 10 unit 08/15/17 11:37 08/20/17 22:33 Levemir SC Not Given HS [facility] [place] Insulin Human Lispro 0 units 08/20/17 20:37 08/21/17 07:01 Humalog Low SC Not Given Q6 [facility] [place] Protocol Metoprolol Tartrate 50 mg 08/20/17 08:44 08/20/17 16:33 Lopressor PO Not Given BRKDIN [facility] [place] Ondansetron HCl 4 mg 08/18/17 10:54 Zofran Inj IVP Q4H PRN Nausea/Vomiting - Patient Studies Lab Studies: Microbiology Studies 08/20/17 09:35 Blood Culture - Preliminary Blood NO GROWTH AFTER 24 HOURS Lab Studies 08/21/17 08/21/17 08/21/17 Range/Units 09:00 09:00 07:38 WBC (4.5-11.0) 10^3/ul RBC (3.5-6.1) 10^6/uL Hgb (12.0-16.0) g/dL Hct (36.0-48.0) % MCV (80.0-105.0) fl MCH (25.0-35.0) pg MCHC (31.0-37.0) g/dl RDW (11.5-14.5) % Plt Count (120.0-450.0) 10^3/uL MPV (7.0-11.0) fl Gran % (50.0-68.0) % Lymph % (Auto) (22.0-35.0) % Riley % (Auto) (1.0-6.0) % Eos % (Auto) (1.5-5.0) % Baso % (Auto) (0.0-3.0) % Gran # (1.4-6.5) Lymph # (1.2-3.4) Riley # (0.1-0.6) Eos # (0.0-0.7) Baso # (0.0-2.0) K/mm3 PT 12.3 H (9.9-11.8) Seconds INR 1.14 H (0.93-1.08) APTT 31.1 H (23.7-30.8) Seconds pCO2 (35-45) mm/Hg pO2 (80-100) mm/Hg HCO3 (21-28) mmol/L ABG pH (7.35-7.45) ABG Total CO2 (22-28) mmol.L ABG O2 Saturation (95-98) % ABG O2 Content (15-23) ML/dl ABG Base Excess (-2.0-3.0) mmol/L ABG Hemoglobin (11.7-17.4) g/dL ABG Carboxyhemoglobin (0.5-1.5) % POC ABG HHb (Measured) (0-5) % ABG Methemoglobin (0.0-3.0) % ABG O2 Capacity (16-24) mL/dl Hgb O2 Saturation (95.0-98.0) % FiO2 % Sodium (132-148) mmol/L Potassium (3.6-5.0) mmol/L Chloride (98-107) mmol/L Carbon Dioxide (21-33) mmol/L Anion Gap (10-20) BUN (7-21) mg/dL Creatinine (0.7-1.2) mg/dL Est GFR ( Amer) Est GFR (Non-Af Amer) POC Glucose (mg/dL) (65-110) mg/dL Random Glucose (70-110) mg/dL Lactic Acid (0.7-2.1) mmol/L Calcium (8.4-10.5) mg/dL Phosphorus 5.2 H (2.5-4.5) mg/dL Magnesium 1.6 L (1.7-2.2) mg/dL Total Bilirubin (0.2-1.3) mg/dL AST (14-36) U/L ALT (7-56) U/L Alkaline Phosphatase (38-126) U/L Total Protein (5.8-8.3) g/dL Albumin (3.0-4.8) g/dL Globulin gm/dL Albumin/Globulin Ratio (1.1-1.8) Procalcitonin (0.19-0.49) NG/ML Urine Color (YELLOW) Urine Appearance (CLEAR) Urine pH (4.7-8.0) Ur Specific [place] (1.005-1.035) Urine Protein (<30 mg/dL) mg/dL Urine Glucose (UA) (NEGATIVE) mg/dL Urine Ketones (NEGATIVE) mg/dL Urine Blood (NEGATIVE) Urine Nitrate (NEGATIVE) Urine Bilirubin (NEGATIVE) Urine Urobilinogen (<1 E.U./dL) E.U./dL Ur Leukocyte Esterase (NEGATIVE) Pavel/uL Urine RBC (0-2) /hpf Urine WBC (0-6) /hpf Ur Epithelial Cells (0-5) /hpf Urine Bacteria (NEG) Ur Random Creatinine mg/dL Ur Random Sodium Blood Type O POSITIVE Antibody Screen Negative BBK History Checked Patient has bt 08/21/17 08/21/17 08/21/17 Range/Units 07:00 05:18 05:00 WBC (4.5-11.0) 10^3/ul RBC (3.5-6.1) 10^6/uL Hgb (12.0-16.0) g/dL Hct (36.0-48.0) % MCV (80.0-105.0) fl MCH (25.0-35.0) pg MCHC (31.0-37.0) g/dl RDW (11.5-14.5) % Plt Count (120.0-450.0) 10^3/uL MPV (7.0-11.0) fl Gran % (50.0-68.0) % Lymph % (Auto) (22.0-35.0) % Riley % (Auto) (1.0-6.0) % Eos % (Auto) (1.5-5.0) % Baso % (Auto) (0.0-3.0) % Gran # (1.4-6.5) Lymph # (1.2-3.4) Riley # (0.1-0.6) Eos # (0.0-0.7) Baso # (0.0-2.0) K/mm3 PT (9.9-11.8) Seconds INR (0.93-1.08) APTT (23.7-30.8) Seconds pCO2 22 L (35-45) mm/Hg pO2 139.0 H (80-100) mm/Hg HCO3 14.9 L (21-28) mmol/L ABG pH 7.44 (7.35-7.45) ABG Total CO2 15.6 L (22-28) mmol.L ABG O2 Saturation 99.6 H (95-98) % ABG O2 Content 14.9 L (15-23) ML/dl ABG Base Excess -7.6 L (-2.0-3.0) mmol/L ABG Hemoglobin 10.8 L (11.7-17.4) g/dL ABG Carboxyhemoglobin 2.1 H (0.5-1.5) % POC ABG HHb (Measured) 0.4 (0-5) % ABG Methemoglobin 1.2 (0.0-3.0) % ABG O2 Capacity 15.0 L (16-24) mL/dl Hgb O2 Saturation 96.3 (95.0-98.0) % FiO2 50.0 % Sodium 143 (132-148) mmol/L Potassium 4.5 (3.6-5.0) mmol/L Chloride 110 H (98-107) mmol/L Carbon Dioxide 16 L (21-33) mmol/L Anion Gap 22 H (10-20) BUN 38 H (7-21) mg/dL Creatinine 2.9 H (0.7-1.2) mg/dL Est GFR ( Amer) 20 Est GFR (Non-Af Amer) 16 POC Glucose (mg/dL) 150 H (65-110) mg/dL Random Glucose 106 (70-110) mg/dL Lactic Acid (0.7-2.1) mmol/L Calcium 8.2 L (8.4-10.5) mg/dL Phosphorus (2.5-4.5) mg/dL Magnesium (1.7-2.2) mg/dL Total Bilirubin 0.6 (0.2-1.3) mg/dL AST 40 H D (14-36) U/L ALT 28 (7-56) U/L Alkaline Phosphatase 81 (38-126) U/L Total Protein 5.3 L (5.8-8.3) g/dL Albumin 2.6 L (3.0-4.8) g/dL Globulin 2.6 gm/dL Albumin/Globulin Ratio 1.0 L (1.1-1.8) Procalcitonin (0.19-0.49) NG/ML Urine Color (YELLOW) Urine Appearance (CLEAR) Urine pH (4.7-8.0) Ur Specific [place] (1.005-1.035) Urine Protein (<30 mg/dL) mg/dL Urine Glucose (UA) (NEGATIVE) mg/dL Urine Ketones (NEGATIVE) mg/dL Urine Blood (NEGATIVE) Urine Nitrate (NEGATIVE) Urine Bilirubin (NEGATIVE) Urine Urobilinogen (<1 E.U./dL) E.U./dL Ur Leukocyte Esterase (NEGATIVE) Pavel/uL Urine RBC (0-2) /hpf Urine WBC (0-6) /hpf Ur Epithelial Cells (0-5) /hpf Urine Bacteria (NEG) Ur Random Creatinine mg/dL Ur Random Sodium Blood Type Antibody Screen BBK History Checked 08/21/17 08/20/17 08/20/17 Range/Units 05:00 21:57 19:23 WBC 2.7 L* D (4.5-11.0) 10^3/ul RBC 2.82 L (3.5-6.1) 10^6/uL Hgb 8.3 L D (12.0-16.0) g/dL Hct 25.7 L (36.0-48.0) % MCV 91.1 (80.0-105.0) fl MCH 29.4 (25.0-35.0) pg MCHC 32.3 (31.0-37.0) g/dl RDW 16.6 H (11.5-14.5) % Plt Count 169 (120.0-450.0) 10^3/uL MPV 9.5 (7.0-11.0) fl Gran % 68.9 H (50.0-68.0) % Lymph % (Auto) 22.1 (22.0-35.0) % Riley % (Auto) 9.0 H (1.0-6.0) % Eos % (Auto) 0.0 L (1.5-5.0) % Baso % (Auto) 0.0 (0.0-3.0) % Gran # 1.84 (1.4-6.5) Lymph # 0.6 L (1.2-3.4) Riley # 0.2 (0.1-0.6) Eos # 0.0 (0.0-0.7) Baso # 0.00 (0.0-2.0) K/mm3 PT (9.9-11.8) Seconds INR (0.93-1.08) APTT (23.7-30.8) Seconds pCO2 (35-45) mm/Hg pO2 (80-100) mm/Hg HCO3 (21-28) mmol/L ABG pH (7.35-7.45) ABG Total CO2 (22-28) mmol.L ABG O2 Saturation (95-98) % ABG O2 Content (15-23) ML/dl ABG Base Excess (-2.0-3.0) mmol/L ABG Hemoglobin (11.7-17.4) g/dL ABG Carboxyhemoglobin (0.5-1.5) % POC ABG HHb (Measured) (0-5) % ABG Methemoglobin (0.0-3.0) % ABG O2 Capacity (16-24) mL/dl Hgb O2 Saturation (95.0-98.0) % FiO2 % Sodium (132-148) mmol/L Potassium (3.6-5.0) mmol/L Chloride (98-107) mmol/L Carbon Dioxide (21-33) mmol/L Anion Gap (10-20) BUN (7-21) mg/dL Creatinine (0.7-1.2) mg/dL Est GFR ( Amer) Est GFR (Non-Af Amer) POC Glucose (mg/dL) 120 H (65-110) mg/dL Random Glucose (70-110) mg/dL Lactic Acid 4.1 H* (0.7-2.1) mmol/L Calcium (8.4-10.5) mg/dL Phosphorus (2.5-4.5) mg/dL Magnesium (1.7-2.2) mg/dL Total Bilirubin (0.2-1.3) mg/dL AST (14-36) U/L ALT (7-56) U/L Alkaline Phosphatase (38-126) U/L Total Protein (5.8-8.3) g/dL Albumin (3.0-4.8) g/dL Globulin gm/dL Albumin/Globulin Ratio (1.1-1.8) Procalcitonin (0.19-0.49) NG/ML Urine Color (YELLOW) Urine Appearance (CLEAR) Urine pH (4.7-8.0) Ur Specific [place] (1.005-1.035) Urine Protein (<30 mg/dL) mg/dL Urine Glucose (UA) (NEGATIVE) mg/dL Urine Ketones (NEGATIVE) mg/dL Urine Blood (NEGATIVE) Urine Nitrate (NEGATIVE) Urine Bilirubin (NEGATIVE) Urine Urobilinogen (<1 E.U./dL) E.U./dL Ur Leukocyte Esterase (NEGATIVE) Pavel/uL Urine RBC (0-2) /hpf Urine WBC (0-6) /hpf Ur Epithelial Cells (0-5) /hpf Urine Bacteria (NEG) Ur Random Creatinine mg/dL Ur Random Sodium Blood Type Antibody Screen BBK History Checked 08/20/17 08/20/17 08/20/17 Range/Units 18:37 16:34 13:50 WBC (4.5-11.0) 10^3/ul RBC (3.5-6.1) 10^6/uL Hgb (12.0-16.0) g/dL Hct (36.0-48.0) % MCV (80.0-105.0) fl MCH (25.0-35.0) pg MCHC (31.0-37.0) g/dl RDW (11.5-14.5) % Plt Count (120.0-450.0) 10^3/uL MPV (7.0-11.0) fl Gran % (50.0-68.0) % Lymph % (Auto) (22.0-35.0) % Riley % (Auto) (1.0-6.0) % Eos % (Auto) (1.5-5.0) % Baso % (Auto) (0.0-3.0) % Gran # (1.4-6.5) Lymph # (1.2-3.4) Riley # (0.1-0.6) Eos # (0.0-0.7) Baso # (0.0-2.0) K/mm3 PT (9.9-11.8) Seconds INR (0.93-1.08) APTT (23.7-30.8) Seconds pCO2 (35-45) mm/Hg pO2 (80-100) mm/Hg HCO3 (21-28) mmol/L ABG pH (7.35-7.45) ABG Total CO2 (22-28) mmol.L ABG O2 Saturation (95-98) % ABG O2 Content (15-23) ML/dl ABG Base Excess (-2.0-3.0) mmol/L ABG Hemoglobin (11.7-17.4) g/dL ABG Carboxyhemoglobin (0.5-1.5) % POC ABG HHb (Measured) (0-5) % ABG Methemoglobin (0.0-3.0) % ABG O2 Capacity (16-24) mL/dl Hgb O2 Saturation (95.0-98.0) % FiO2 % Sodium (132-148) mmol/L Potassium (3.6-5.0) mmol/L Chloride (98-107) mmol/L Carbon Dioxide (21-33) mmol/L Anion Gap (10-20) BUN (7-21) mg/dL Creatinine (0.7-1.2) mg/dL Est GFR ( Amer) Est GFR (Non-Af Amer) POC Glucose (mg/dL) 152 H 163 H (65-110) mg/dL Random Glucose (70-110) mg/dL Lactic Acid 4.3 H* (0.7-2.1) mmol/L Calcium (8.4-10.5) mg/dL Phosphorus (2.5-4.5) mg/dL Magnesium (1.7-2.2) mg/dL Total Bilirubin (0.2-1.3) mg/dL AST (14-36) U/L ALT (7-56) U/L Alkaline Phosphatase (38-126) U/L Total Protein (5.8-8.3) g/dL Albumin (3.0-4.8) g/dL Globulin gm/dL Albumin/Globulin Ratio (1.1-1.8) Procalcitonin (0.19-0.49) NG/ML Urine Color (YELLOW) Urine Appearance (CLEAR) Urine pH (4.7-8.0) Ur Specific [place] (1.005-1.035) Urine Protein (<30 mg/dL) mg/dL Urine Glucose (UA) (NEGATIVE) mg/dL Urine Ketones (NEGATIVE) mg/dL Urine Blood (NEGATIVE) Urine Nitrate (NEGATIVE) Urine Bilirubin (NEGATIVE) Urine Urobilinogen (<1 E.U./dL) E.U./dL Ur Leukocyte Esterase (NEGATIVE) Pavel/uL Urine RBC (0-2) /hpf Urine WBC (0-6) /hpf Ur Epithelial Cells (0-5) /hpf Urine Bacteria (NEG) Ur Random Creatinine mg/dL Ur Random Sodium Blood Type Antibody Screen BBK History Checked 08/20/17 08/20/17 08/20/17 Range/Units 12:30 12:30 12:30 WBC (4.5-11.0) 10^3/ul RBC (3.5-6.1) 10^6/uL Hgb (12.0-16.0) g/dL Hct (36.0-48.0) % MCV (80.0-105.0) fl MCH (25.0-35.0) pg MCHC (31.0-37.0) g/dl RDW (11.5-14.5) % Plt Count (120.0-450.0) 10^3/uL MPV (7.0-11.0) fl Gran % (50.0-68.0) % Lymph % (Auto) (22.0-35.0) % Riley % (Auto) (1.0-6.0) % Eos % (Auto) (1.5-5.0) % Baso % (Auto) (0.0-3.0) % Gran # (1.4-6.5) Lymph # (1.2-3.4) Riley # (0.1-0.6) Eos # (0.0-0.7) Baso # (0.0-2.0) K/mm3 PT (9.9-11.8) Seconds INR (0.93-1.08) APTT (23.7-30.8) Seconds pCO2 (35-45) mm/Hg pO2 (80-100) mm/Hg HCO3 (21-28) mmol/L ABG pH (7.35-7.45) ABG Total CO2 (22-28) mmol.L ABG O2 Saturation (95-98) % ABG O2 Content (15-23) ML/dl ABG Base Excess (-2.0-3.0) mmol/L ABG Hemoglobin (11.7-17.4) g/dL ABG Carboxyhemoglobin (0.5-1.5) % POC ABG HHb (Measured) (0-5) % ABG Methemoglobin (0.0-3.0) % ABG O2 Capacity (16-24) mL/dl Hgb O2 Saturation (95.0-98.0) % FiO2 % Sodium (132-148) mmol/L Potassium (3.6-5.0) mmol/L Chloride (98-107) mmol/L Carbon Dioxide (21-33) mmol/L Anion Gap (10-20) BUN (7-21) mg/dL Creatinine (0.7-1.2) mg/dL Est GFR ( Amer) Est GFR (Non-Af Amer) POC Glucose (mg/dL) (65-110) mg/dL Random Glucose (70-110) mg/dL Lactic Acid (0.7-2.1) mmol/L Calcium (8.4-10.5) mg/dL Phosphorus (2.5-4.5) mg/dL Magnesium (1.7-2.2) mg/dL Total Bilirubin (0.2-1.3) mg/dL AST (14-36) U/L ALT (7-56) U/L Alkaline Phosphatase (38-126) U/L Total Protein (5.8-8.3) g/dL Albumin (3.0-4.8) g/dL Globulin gm/dL Albumin/Globulin Ratio (1.1-1.8) Procalcitonin (0.19-0.49) NG/ML Urine Color Yellow (YELLOW) Urine Appearance Cloudy (CLEAR) Urine pH 5.0 (4.7-8.0) Ur Specific [place] 1.015 (1.005-1.035) Urine Protein Trace H (<30 mg/dL) mg/dL Urine Glucose (UA) Negative (NEGATIVE) mg/dL Urine Ketones Negative (NEGATIVE) mg/dL Urine Blood Moderate H (NEGATIVE) Urine Nitrate Negative (NEGATIVE) Urine Bilirubin Negative (NEGATIVE) Urine Urobilinogen 0.2 (<1 E.U./dL) E.U./dL Ur Leukocyte Esterase Large H (NEGATIVE) Pavel/uL Urine RBC 2 - 5 (0-2) /hpf Urine WBC 20 - 25 (0-6) /hpf Ur Epithelial Cells 1 - 3 (0-5) /hpf Urine Bacteria Many (NEG) Ur Random Creatinine 63 mg/dL Ur Random Sodium 13 Cancelled Blood Type Antibody Screen BBK History Checked 08/20/17 08/20/17 08/20/17 Range/Units 11:17 09:35 09:11 WBC (4.5-11.0) 10^3/ul RBC (3.5-6.1) 10^6/uL Hgb (12.0-16.0) g/dL Hct (36.0-48.0) % MCV (80.0-105.0) fl MCH (25.0-35.0) pg MCHC (31.0-37.0) g/dl RDW (11.5-14.5) % Plt Count (120.0-450.0) 10^3/uL MPV (7.0-11.0) fl Gran % (50.0-68.0) % Lymph % (Auto) (22.0-35.0) % Riley % (Auto) (1.0-6.0) % Eos % (Auto) (1.5-5.0) % Baso % (Auto) (0.0-3.0) % Gran # (1.4-6.5) Lymph # (1.2-3.4) Riley # (0.1-0.6) Eos # (0.0-0.7) Baso # (0.0-2.0) K/mm3 PT (9.9-11.8) Seconds INR (0.93-1.08) APTT (23.7-30.8) Seconds pCO2 (35-45) mm/Hg pO2 (80-100) mm/Hg HCO3 (21-28) mmol/L ABG pH (7.35-7.45) ABG Total CO2 (22-28) mmol.L ABG O2 Saturation (95-98) % ABG O2 Content (15-23) ML/dl ABG Base Excess (-2.0-3.0) mmol/L ABG Hemoglobin (11.7-17.4) g/dL ABG Carboxyhemoglobin (0.5-1.5) % POC ABG HHb (Measured) (0-5) % ABG Methemoglobin (0.0-3.0) % ABG O2 Capacity (16-24) mL/dl Hgb O2 Saturation (95.0-98.0) % FiO2 % Sodium (132-148) mmol/L Potassium (3.6-5.0) mmol/L Chloride (98-107) mmol/L Carbon Dioxide (21-33) mmol/L Anion Gap (10-20) BUN (7-21) mg/dL Creatinine (0.7-1.2) mg/dL Est GFR ( Amer) Est GFR (Non-Af Amer) POC Glucose (mg/dL) 220 H 246 H (65-110) mg/dL Random Glucose (70-110) mg/dL Lactic Acid (0.7-2.1) mmol/L Calcium (8.4-10.5) mg/dL Phosphorus (2.5-4.5) mg/dL Magnesium (1.7-2.2) mg/dL Total Bilirubin (0.2-1.3) mg/dL AST (14-36) U/L ALT (7-56) U/L Alkaline Phosphatase (38-126) U/L Total Protein (5.8-8.3) g/dL Albumin (3.0-4.8) g/dL Globulin gm/dL Albumin/Globulin Ratio (1.1-1.8) Procalcitonin 124.71 H (0.19-0.49) NG/ML Urine Color (YELLOW) Urine Appearance (CLEAR) Urine pH (4.7-8.0) Ur Specific [place] (1.005-1.035) Urine Protein (<30 mg/dL) mg/dL Urine Glucose (UA) (NEGATIVE) mg/dL Urine Ketones (NEGATIVE) mg/dL Urine Blood (NEGATIVE) Urine Nitrate (NEGATIVE) Urine Bilirubin (NEGATIVE) Urine Urobilinogen (<1 E.U./dL) E.U./dL Ur Leukocyte Esterase (NEGATIVE) Pavel/uL Urine RBC (0-2) /hpf Urine WBC (0-6) /hpf Ur Epithelial Cells (0-5) /hpf Urine Bacteria (NEG) Ur Random Creatinine mg/dL Ur Random Sodium Blood Type Antibody Screen BBK History Checked Laboratory Results - last 24 hr 08/20/17 08/20/17 08/20/17 09:11 09:35 11:17 WBC RBC Hgb Hct MCV MCH MCHC RDW Plt Count MPV Gran % Lymph % (Auto) Riley % (Auto) Eos % (Auto) Baso % (Auto) Gran # Lymph # Riley # Eos # Baso # PT INR APTT pCO2 pO2 HCO3 ABG pH ABG Total CO2 ABG O2 Saturation ABG O2 Content ABG Base Excess ABG Hemoglobin ABG Carboxyhemoglobin POC ABG HHb (Measured) ABG Methemoglobin ABG O2 Capacity Hgb O2 Saturation FiO2 Sodium Potassium Chloride Carbon Dioxide Anion Gap BUN Creatinine Est GFR ( Amer) Est GFR (Non-Af Amer) POC Glucose (mg/dL) 246 H 220 H Random Glucose Lactic Acid Calcium Phosphorus Magnesium Total Bilirubin AST ALT Alkaline Phosphatase Total Protein Albumin Globulin Albumin/Globulin Ratio Procalcitonin 124.71 H Urine Color Urine Appearance Urine pH Ur Specific [place] Urine Protein Urine Glucose (UA) Urine Ketones Urine Blood Urine Nitrate Urine Bilirubin Urine Urobilinogen Ur Leukocyte Esterase Urine RBC Urine WBC Ur Epithelial Cells Urine Bacteria Ur Random Creatinine Ur Random Sodium Blood Type Antibody Screen BBK History Checked 08/20/17 08/20/17 08/20/17 12:30 12:30 12:30 WBC RBC Hgb Hct MCV MCH MCHC RDW Plt Count MPV Gran % Lymph % (Auto) Riley % (Auto) Eos % (Auto) Baso % (Auto) Gran # Lymph # Riley # Eos # Baso # PT INR APTT pCO2 pO2 HCO3 ABG pH ABG Total CO2 ABG O2 Saturation ABG O2 Content ABG Base Excess ABG Hemoglobin ABG Carboxyhemoglobin POC ABG HHb (Measured) ABG Methemoglobin ABG O2 Capacity Hgb O2 Saturation FiO2 Sodium Potassium Chloride Carbon Dioxide Anion Gap BUN Creatinine Est GFR ( Amer) Est GFR (Non-Af Amer) POC Glucose (mg/dL) Random Glucose Lactic Acid Calcium Phosphorus Magnesium Total Bilirubin AST ALT Alkaline Phosphatase Total Protein Albumin Globulin Albumin/Globulin Ratio Procalcitonin Urine Color Yellow Urine Appearance Cloudy Urine pH 5.0 Ur Specific [place] 1.015 Urine Protein Trace H Urine Glucose (UA) Negative Urine Ketones Negative Urine Blood Moderate H Urine Nitrate Negative Urine Bilirubin Negative Urine Urobilinogen 0.2 Ur Leukocyte Esterase Large H Urine RBC 2 - 5 Urine WBC 20 - 25 Ur Epithelial Cells 1 - 3 Urine Bacteria Many Ur Random Creatinine 63 Ur Random Sodium Cancelled 13 Blood Type Antibody Screen BBK History Checked 08/20/17 08/20/17 08/20/17 13:50 16:34 18:37 WBC RBC Hgb Hct MCV MCH MCHC RDW Plt Count MPV Gran % Lymph % (Auto) Riley % (Auto) Eos % (Auto) Baso % (Auto) Gran # Lymph # Riley # Eos # Baso # PT INR APTT pCO2 pO2 HCO3 ABG pH ABG Total CO2 ABG O2 Saturation ABG O2 Content ABG Base Excess ABG Hemoglobin ABG Carboxyhemoglobin POC ABG HHb (Measured) ABG Methemoglobin ABG O2 Capacity Hgb O2 Saturation FiO2 Sodium Potassium Chloride Carbon Dioxide Anion Gap BUN Creatinine Est GFR ( Amer) Est GFR (Non-Af Amer) POC Glucose (mg/dL) 163 H 152 H Random Glucose Lactic Acid 4.3 H* Calcium Phosphorus Magnesium Total Bilirubin AST ALT Alkaline Phosphatase Total Protein Albumin Globulin Albumin/Globulin Ratio Procalcitonin Urine Color Urine Appearance Urine pH Ur Specific [place] Urine Protein Urine Glucose (UA) Urine Ketones Urine Blood Urine Nitrate Urine Bilirubin Urine Urobilinogen Ur Leukocyte Esterase Urine RBC Urine WBC Ur Epithelial Cells Urine Bacteria Ur Random Creatinine Ur Random Sodium Blood Type Antibody Screen BBK History Checked 08/20/17 08/20/17 08/21/17 19:23 21:57 05:00 WBC 2.7 L* D RBC 2.82 L Hgb 8.3 L D Hct 25.7 L MCV 91.1 MCH 29.4 MCHC 32.3 RDW 16.6 H Plt Count 169 MPV 9.5 Gran % 68.9 H Lymph % (Auto) 22.1 Riley % (Auto) 9.0 H Eos % (Auto) 0.0 L Baso % (Auto) 0.0 Gran # 1.84 Lymph # 0.6 L Riley # 0.2 Eos # 0.0 Baso # 0.00 PT INR APTT pCO2 pO2 HCO3 ABG pH ABG Total CO2 ABG O2 Saturation ABG O2 Content ABG Base Excess ABG Hemoglobin ABG Carboxyhemoglobin POC ABG HHb (Measured) ABG Methemoglobin ABG O2 Capacity Hgb O2 Saturation FiO2 Sodium Potassium Chloride Carbon Dioxide Anion Gap BUN Creatinine Est GFR ( Amer) Est GFR (Non-Af Amer) POC Glucose (mg/dL) 120 H Random Glucose Lactic Acid 4.1 H* Calcium Phosphorus Magnesium Total Bilirubin AST ALT Alkaline Phosphatase Total Protein Albumin Globulin Albumin/Globulin Ratio Procalcitonin Urine Color Urine Appearance Urine pH Ur Specific [place] Urine Protein Urine Glucose (UA) Urine Ketones Urine Blood Urine Nitrate Urine Bilirubin Urine Urobilinogen Ur Leukocyte Esterase Urine RBC Urine WBC Ur Epithelial Cells Urine Bacteria Ur Random Creatinine Ur Random Sodium Blood Type Antibody Screen BBK History Checked 08/21/17 08/21/17 08/21/17 05:00 05:18 07:00 WBC RBC Hgb Hct MCV MCH MCHC RDW Plt Count MPV Gran % Lymph % (Auto) Riley % (Auto) Eos % (Auto) Baso % (Auto) Gran # Lymph # Riley # Eos # Baso # PT INR APTT pCO2 22 L pO2 139.0 H HCO3 14.9 L ABG pH 7.44 ABG Total CO2 15.6 L ABG O2 Saturation 99.6 H ABG O2 Content 14.9 L ABG Base Excess -7.6 L ABG Hemoglobin 10.8 L ABG Carboxyhemoglobin 2.1 H POC ABG HHb (Measured) 0.4 ABG Methemoglobin 1.2 ABG O2 Capacity 15.0 L Hgb O2 Saturation 96.3 FiO2 50.0 Sodium 143 Potassium 4.5 Chloride 110 H Carbon Dioxide 16 L Anion Gap 22 H BUN 38 H Creatinine 2.9 H Est GFR ( Amer) 20 Est GFR (Non-Af Amer) 16 POC Glucose (mg/dL) 150 H Random Glucose 106 Lactic Acid Calcium 8.2 L Phosphorus Magnesium Total Bilirubin 0.6 AST 40 H D ALT 28 Alkaline Phosphatase 81 Total Protein 5.3 L Albumin 2.6 L Globulin 2.6 Albumin/Globulin Ratio 1.0 L Procalcitonin Urine Color Urine Appearance Urine pH Ur Specific [place] Urine Protein Urine Glucose (UA) Urine Ketones Urine Blood Urine Nitrate Urine Bilirubin Urine Urobilinogen Ur Leukocyte Esterase Urine RBC Urine WBC Ur Epithelial Cells Urine Bacteria Ur Random Creatinine Ur Random Sodium Blood Type Antibody Screen BBK History Checked 08/21/17 08/21/17 08/21/17 07:38 09:00 09:00 WBC RBC Hgb Hct MCV MCH MCHC RDW Plt Count MPV Gran % Lymph % (Auto) Riley % (Auto) Eos % (Auto) Baso % (Auto) Gran # Lymph # Riley # Eos # Baso # PT 12.3 H INR 1.14 H APTT 31.1 H pCO2 pO2 HCO3 ABG pH ABG Total CO2 ABG O2 Saturation ABG O2 Content ABG Base Excess ABG Hemoglobin ABG Carboxyhemoglobin POC ABG HHb (Measured) ABG Methemoglobin ABG O2 Capacity Hgb O2 Saturation FiO2 Sodium Potassium Chloride Carbon Dioxide Anion Gap BUN Creatinine Est GFR ( Amer) Est GFR (Non-Af Amer) POC Glucose (mg/dL) Random Glucose Lactic Acid Calcium Phosphorus 5.2 H Magnesium 1.6 L Total Bilirubin AST ALT Alkaline Phosphatase Total Protein Albumin Globulin Albumin/Globulin Ratio Procalcitonin Urine Color Urine Appearance Urine pH Ur Specific [place] Urine Protein Urine Glucose (UA) Urine Ketones Urine Blood Urine Nitrate Urine Bilirubin Urine Urobilinogen Ur Leukocyte Esterase Urine RBC Urine WBC Ur Epithelial Cells Urine Bacteria Ur Random Creatinine Ur Random Sodium Blood Type O POSITIVE Antibody Screen Negative BBK History Checked Patient has bt
--- NOTE | 2017-08-21 09:42 | RAD ---
HISTORY: intubated, f/u; r/o aspiration COMPARISON: 08/20/2017 FINDINGS: The endotracheal tube terminates 2.5 cm proximal to the kerri. LUNGS: The lungs are well inflated. There is airspace disease in the left lower lobe. PLEURA: No significant pleural effusion identified, no pneumothorax apparent. CARDIOVASCULAR: Normal. OSSEOUS STRUCTURES: No significant abnormalities. VISUALIZED UPPER ABDOMEN: Normal. OTHER FINDINGS: None. IMPRESSION: Airspace disease in the left lower lobe could represent atelectasis or pneumonia.
--- NOTE | 2017-08-21 09:58 | CP.PCM.PN ---
Subjective - Date & Time of Evaluation Date of Evaluation: 08/21/17 Time of Evaluation: 15:00 - Subjective Subjective: Unresponsive, bradycardia, hypotensive Objective - Vital Signs/Intake and Output Vital Signs (last 24 hours): Temp Pulse Resp BP Pulse Ox 99.6 F 123 H 22 94/50 L 100 08/20/17 22:00 08/20/17 22:53 08/20/17 13:00 08/20/17 22:53 08/20/17 13:00 - Medications Medications: Current Medications Acetaminophen (Tylenol 650mg/20.3ml Solution Ud) 650 mg PO Q6H PRN PRN Reason: Headache Last Admin: 08/20/17 16:44 Dose: 650 mg Artificial Tears (Artificial Tears Opht Oint) 1 gm OU Q6H [facility] Last Admin: 08/21/17 07:56 Dose: 1 drop Baclofen (Lioresal) 20 mg PO HS [facility] Last Admin: 08/19/17 22:51 Dose: Not Given Chlorhexidine Gluconate (Peridex) 15 ml PO BID [facility] Last Admin: 08/21/17 09:10 Dose: 15 ml Levetiracetam (Keppra 500mg Ivpb) 500 mg in 100 mls @ 400 mls/hr IVPB Q12 [facility] Last Admin: 08/21/17 09:09 Dose: 400 mls/hr Metronidazole (Flagyl) 500 mg in 100 mls @ 100 mls/hr IVPB Q8H [facility] PRN Reason: Protocol Last Admin: 08/21/17 09:09 Dose: 100 mls/hr Acetaminophen (Ofirmev) 1,000 mg in 100 mls @ 400 mls/hr IVPB Q6H PRN PRN Reason: Temperature >= 100.4 Stop: 08/23/17 08:53 Last Admin: 08/21/17 09:08 Dose: 400 mls/hr Sodium Chloride (Sodium Chloride 0.9%) 1,000 mls @ 150 mls/hr IV .Q6H40M [facility] Insulin Detemir (Levemir) 10 unit SC [facility] Last Admin: 08/20/17 22:33 Dose: Not Given Insulin Human Lispro (Humalog Low) 0 units SC Q6 [facility] PRN Reason: Protocol Last Admin: 08/21/17 07:01 Dose: Not Given Metoprolol Tartrate (Lopressor) 50 mg PO BRKDIN [facility] Last Admin: 08/20/17 16:33 Dose: Not Given Ondansetron HCl (Zofran Inj) 4 mg IVP Q4H PRN PRN Reason: Nausea/Vomiting - Labs Labs: 08/21/17 05:00 08/21/17 05:00 PT 10.6 Seconds (9.9-11.8) 08/17/17 17:22 INR 0.98 (0.93-1.08) 08/17/17 17:22 APTT 27.3 Seconds (23.7-30.8) 08/01/17 08:20 - Constitutional Appears: Chronically Ill - Eye Exam Eye Exam: Normal appearance - Respiratory Exam Respiratory Exam: Decreased Breath Sounds Additional comments: apneic - Cardiovascular Exam Cardiovascular Exam: Bradycardia - GI/Abdominal Exam GI & Abdominal Exam: Soft, Diminished Bowel Sounds (ansaraca) - Extremities Exam Additional comments: anasarca - Skin Skin Exam: Dry, Pallor Assessment and Plan - Assessment and Plan (Free Text) Assessment: 67 year old female with history of metastatic uterine cancer admitted with acute frontal hemorrhage, DAWIT, SIRS, dyspagia, altered mental status at bedside. Explained that patient was nearing end of life. confirms that he wants no aggressive measures to prolong life. End of life counseling given. Psychosocial support given. Spiritual support declined. Patient . Family support given.
[2017-08-21 10:14] VITALS: RESP 33
--- NOTE | 2017-08-21 18:46 | CP.PCM.DIS ---
<EvaristoMode - Last Filed: 08/21/17 19:35> Provider - Provider Date of Admission: 08/01/17 06:40 Attending physician: Nik Nichols MD Primary care physician: Edna Shaffer MD Time Spent in preparation of Discharge (in minutes): 45 Hospital Course - Lab Results Lab Results: Micro Results 08/20/17 09:35 Blood Blood Culture - Preliminary NO GROWTH AFTER 24 HOURS 08/03/17 06:30 Blood-Venous Blood Culture - Final NO GROWTH AFTER 5 DAYS 08/03/17 06:30 Blood-Venous Gram Stain - Final TEST NOT PERFORMED 08/03/17 06:00 Blood-Venous Blood Culture - Final NO GROWTH AFTER 5 DAYS 08/03/17 06:00 Blood-Venous Gram Stain - Final TEST NOT PERFORMED 08/01/17 08:07 Blood-Venous Blood Culture - Final Coagulase Neg Staphylococcus 08/01/17 08:07 Blood-Venous Gram Stain - Final 08/01/17 07:30 Blood-Venous S.aureus & Coag-Neg Staph PNA FISH - Final 08/01/17 07:30 Blood-Venous Blood Culture - Final Coagulase Neg Staphylococcus 08/01/17 07:30 Blood-Venous Gram Stain - Final 08/01/17 08:09 Nose MRSA Culture (Admit) - Final MRSA NOT DETECTED Most Recent Lab Values WBC 2.7 10^3/ul (4.5-11.0) L* D 08/21/17 05:00 RBC 2.82 10^6/uL (3.5-6.1) L 08/21/17 05:00 Hgb 8.3 g/dL (12.0-16.0) L D 08/21/17 05:00 Hct 25.7 % (36.0-48.0) L 08/21/17 05:00 MCV 91.1 fl (80.0-105.0) 08/21/17 05:00 MCH 29.4 pg (25.0-35.0) 08/21/17 05:00 MCHC 32.3 g/dl (31.0-37.0) 08/21/17 05:00 RDW 16.6 % (11.5-14.5) H 08/21/17 05:00 Plt Count 169 10^3/uL (120.0-450.0) 08/21/17 05:00 MPV 9.5 fl (7.0-11.0) 08/21/17 05:00 Gran % 68.9 % (50.0-68.0) H 08/21/17 05:00 Lymph % (Auto) 22.1 % (22.0-35.0) 08/21/17 05:00 Wilcox % (Auto) 9.0 % (1.0-6.0) H 08/21/17 05:00 Eos % (Auto) 0.0 % (1.5-5.0) L 08/21/17 05:00 Baso % (Auto) 0.0 % (0.0-3.0) 08/21/17 05:00 Gran # 1.84 (1.4-6.5) 08/21/17 05:00 Lymph # 0.6 (1.2-3.4) L 08/21/17 05:00 Wilcox # 0.2 (0.1-0.6) 08/21/17 05:00 Eos # 0.0 (0.0-0.7) 08/21/17 05:00 Baso # 0.00 K/mm3 (0.0-2.0) 08/21/17 05:00 Neutrophils % (Manual) 89 % (50.0-70.0) H 08/05/17 05:00 Band Neutrophils % 1 % (0-2) 08/05/17 05:00 Lymphocytes % (Manual) 6 % (22.0-35.0) L 08/05/17 05:00 Monocytes % (Manual) 4 % (1.0-6.0) 08/05/17 05:00 Platelet Evaluation Normal (NORMAL) 08/05/17 05:00 Polychromasia Slight 08/05/17 05:00 Hypochromasia 1+ 08/05/17 05:00 Anisocytosis (manual) 1+ 08/05/17 05:00 PT 12.3 Seconds (9.9-11.8) H 08/21/17 09:00 INR 1.14 (0.93-1.08) H 08/21/17 09:00 APTT 31.1 Seconds (23.7-30.8) H 08/21/17 09:00 pCO2 22 mm/Hg (35-45) L 08/21/17 05:18 pO2 139.0 mm/Hg (80-100) H 08/21/17 05:18 HCO3 14.9 mmol/L (21-28) L 08/21/17 05:18 ABG pH 7.44 (7.35-7.45) 08/21/17 05:18 ABG Total CO2 15.6 mmol.L (22-28) L 08/21/17 05:18 ABG O2 Saturation 99.6 % (95-98) H 08/21/17 05:18 ABG O2 Content 14.9 ML/dl (15-23) L 08/21/17 05:18 ABG Base Excess -7.6 mmol/L (-2.0-3.0) L 08/21/17 05:18 ABG Hemoglobin 10.8 g/dL (11.7-17.4) L 08/21/17 05:18 ABG Carboxyhemoglobin 2.1 % (0.5-1.5) H 08/21/17 05:18 POC ABG HHb (Measured) 0.4 % (0-5) 08/21/17 05:18 ABG Methemoglobin 1.2 % (0.0-3.0) 08/21/17 05:18 ABG O2 Capacity 15.0 mL/dl (16-24) L 08/21/17 05:18 ABG Potassium 3.9 mmol/L (3.6-5.2) 08/01/17 09:25 VBG pH 7.38 (7.32-7.43) 08/02/17 02:35 VBG pCO2 52.0 (40-60) 08/02/17 02:35 VBG HCO3 30.8 mmol/l (21-28) H 08/02/17 02:35 VBG Total CO2 32.4 mmol.L (22-28) H 08/02/17 02:35 VBG O2 Sat (Calc) 62.2 % (40-65) 08/02/17 02:35 VBG Base Excess 4.4 mmol/L (0.0-2.0) H 08/02/17 02:35 VBG Potassium 3.6 mmol/L (3.6-5.2) 08/02/17 02:35 Hgb O2 Saturation 96.3 % (95.0-98.0) 08/21/17 05:18 Sodium 145.0 mmol/L (132-148) 08/02/17 02:35 Chloride 112.0 mmol/L (98-107) H 08/02/17 02:35 Glucose 107 mg/dl (65-105) H 08/02/17 02:35 Lactate 1.8 mmol/L (0.7-2.1) 08/02/17 02:35 FiO2 50.0 % 08/21/17 05:18 PEEP 5 08/01/17 09:25 Pressure Support 5 08/01/17 09:25 Sodium 143 mmol/L (132-148) 08/21/17 05:00 Potassium 4.5 mmol/L (3.6-5.0) 08/21/17 05:00 Chloride 110 mmol/L (98-107) H 08/21/17 05:00 Carbon Dioxide 16 mmol/L (21-33) L 08/21/17 05:00 Anion Gap 22 (10-20) H 08/21/17 05:00 BUN 38 mg/dL (7-21) H 08/21/17 05:00 Creatinine 2.9 mg/dL (0.7-1.2) H 08/21/17 05:00 Est GFR ( Amer) 20 08/21/17 05:00 Est GFR (Non-Af Amer) 16 08/21/17 05:00 POC Glucose (mg/dL) 150 mg/dL (65-110) H 08/21/17 07:00 Random Glucose 106 mg/dL (70-110) 08/21/17 05:00 Serum Osmolality 303 mosm/kg (271-296) H 08/01/17 11:32 Lactic Acid 4.1 mmol/L (0.7-2.1) H* 08/20/17 19:23 Calcium 8.2 mg/dL (8.4-10.5) L 08/21/17 05:00 Phosphorus 5.2 mg/dL (2.5-4.5) H 08/21/17 07:38 Magnesium 1.6 mg/dL (1.7-2.2) L 08/21/17 07:38 Total Bilirubin 0.6 mg/dL (0.2-1.3) 08/21/17 05:00 AST 40 U/L (14-36) H D 08/21/17 05:00 ALT 28 U/L (7-56) 08/21/17 05:00 Alkaline Phosphatase 81 U/L (38-126) 08/21/17 05:00 Troponin I 0.04 ng/mL D 08/01/17 05:50 Total Protein 5.3 g/dL (5.8-8.3) L 08/21/17 05:00 Albumin 2.6 g/dL (3.0-4.8) L 08/21/17 05:00 Globulin 2.6 gm/dL 08/21/17 05:00 Albumin/Globulin Ratio 1.0 (1.1-1.8) L 08/21/17 05:00 Procalcitonin 124.71 NG/ML (0.19-0.49) H 08/20/17 09:35 Arterial Blood Potassium 3.9 mmol/L (3.6-5.2) 08/01/17 09:25 Venous Blood Potassium 3.6 mmol/L (3.6-5.2) 08/02/17 02:35 Urine Color Yellow (YELLOW) 08/20/17 12:30 Urine Appearance Cloudy (CLEAR) 08/20/17 12:30 Urine pH 5.0 (4.7-8.0) 08/20/17 12:30 Ur Specific [place] 1.015 (1.005-1.035) 08/20/17 12:30 Urine Protein Trace mg/dL (<30 mg/dL) H 08/20/17 12:30 Urine Glucose (UA) Negative mg/dL (NEGATIVE) 08/20/17 12:30 Urine Ketones Negative mg/dL (NEGATIVE) 08/20/17 12:30 Urine Blood Moderate (NEGATIVE) H 08/20/17 12:30 Urine Nitrate Negative (NEGATIVE) 08/20/17 12:30 Urine Bilirubin Negative (NEGATIVE) 08/20/17 12:30 Urine Urobilinogen 0.2 E.U./dL (<1 E.U./dL) 08/20/17 12:30 Ur Leukocyte Esterase Large Pavel/uL (NEGATIVE) H 08/20/17 12:30 Urine RBC 2 - 5 /hpf (0-2) 08/20/17 12:30 Urine WBC 20 - 25 /hpf (0-6) 08/20/17 12:30 Ur Epithelial Cells 1 - 3 /hpf (0-5) 08/20/17 12:30 Urine Bacteria Many (NEG) 08/20/17 12:30 Ur Random Creatinine 63 mg/dL 08/20/17 12:30 Ur Random Sodium 13 meq/L 08/20/17 12:30 Ur Random Potassium 23.2 meq/L 08/05/17 17:30 Vancomycin Trough 20.5 ug/mL (5.0-10.0) H* 08/05/17 22:00 Blood Type O POSITIVE 08/21/17 09:00 Antibody Screen Negative 08/21/17 09:00 BBK History Checked Patient has bt 08/21/17 09:00 - Hospital Course Hospital Course: This is a 73 year old female with a past medical history of uterine cancer (s/p craniotomy/chemotherapy/radiation), hypertension, Type II Diabetes, hyperlipidemia who came in low grade fevers of up to 100.4 F after suffering from a 4.4cm left occipital intracranial hemorrhage with intraventricular extension. The patient initially had fevers up to 101.7 F. Clinically, the patient has been improving. Supportive care. She was intubated on admission. While admitted the patient was seen by Neurology, Neurosurgery, Neurologist, Infectious Disease, Hematology, and Radiation oncology. 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 She was extubated on 10/2017 . The family states that the patient is acting and speaking appropriately other than the slurring of speech due to her right sided residual weakness. Alfredo cultures sent. There was a mild initial leukocytosis on admission but this has slowly improved. Fever trend has shown improvement. The cultures done to date have been negative so far. No consolidation seen on Chest X-ray. Patient answering question during interview and examination. Supportive care. Currently on Unasyn for antibiotic coverage. Noted C. Diff and repeat urine culture sent. No adequate sample for C. diff testing. Would obtain urinalysis. Was on Unasyn. The current temperature is more likely secondary to the recent intracranial hemorrhage. No Leukocytosis with WBC of 5.4 on 08/15/2017. Multiple culture sets performed to date are negative. Afebrile for the past 48 hours now. Cultures negative to date at greater than 48 hours. It appears as the hemorrhage improves the fevers are improving. The patient still with residual right sided weakness. Last CT done on 07/30/2017 showing interval evolution of known subacute hematoma in left occipital lobe without midline shift or herniation. Resolving intraventricular hemorrhage with residual mild intraventricular hemorrhage. 08/03 the patient's sodium increased to 161 and was corrected appropriately. Extubated 08/04/2017. Able to follow occasional simple command. Supportive care. Poor fpc prognosis given Uterine cancer with brain metastasis and the recent hemorrhagic CVA. No new infectious disease issues. Difficulty with feeds. Patient had two separate episodes of vomiting with tube feeds. Patient continue to fail swallow evaluations and NG tube had to be replaced and patient made NPO before NG tube placement. Patient dislodged NG tube a night ago. The patient is lethargic. At this point, she is not following commands. In morning of 08/20/2017, the patient had a rapid response due to her dislodging her peg tube and oxygen saturation dropped into the mid 70's. The patient was initially placed on BIPAP however the oxygen saturation didn't improve and was intubated and ventilated. Transferred to MICU. Patient had episode of hypotension during rapid response as well as tachycardia. Monday08/20/2017, the DNR was obtained by the patient's . Monday the patient abruptly became bradycardic to 30's on bedside monitor during rounds, with bigeminy on bedside monitor. Atropine 0.5 IVP x1 given, HR improved to 60's briefly, but then became progressively more bradycardic, back down to 30's. Carotid pulse unable to be palpated, but presence confirmed with bedside Doppler. Patient then lost pulse. Confirmed by family at bedside to be DNR. No breathing over vent, no auscultated heart sounds, no corneal reflex, no palpable carotid or femoral pulses. Patient declared at 9:27 AM 08/21/17. Monday the patient due to cardiopulmonary failure secondary to uterine cancer s/p craniotomy. Discharge Exam - Head Exam Head Exam: ATRAUMATIC Discharge Plan - Follow Up Plan Condition: CRITICAL Disposition: WITH WITHOUT AUTOPSY Instructions: Hemorrhagic Stroke (DC), Stroke (DC) Referrals: Edna Shaffer MD [Primary Care Provider] - <Nik Nichols - Last Filed: 08/22/17 09:23> Provider - Provider Date of Admission: 08/01/17 06:40 Attending physician: Nik Nichols MD Primary care physician: Edna Shaffer MD Hospital Course - Lab Results Lab Results: Micro Results 08/20/17 09:35 Blood Blood Culture - Preliminary NO GROWTH AFTER 24 HOURS 08/03/17 06:30 Blood-Venous Blood Culture - Final NO GROWTH AFTER 5 DAYS 08/03/17 06:30 Blood-Venous Gram Stain - Final TEST NOT PERFORMED 08/03/17 06:00 Blood-Venous Blood Culture - Final NO GROWTH AFTER 5 DAYS 08/03/17 06:00 Blood-Venous Gram Stain - Final TEST NOT PERFORMED 08/01/17 08:07 Blood-Venous Blood Culture - Final Coagulase Neg Staphylococcus 08/01/17 08:07 Blood-Venous Gram Stain - Final 08/01/17 07:30 Blood-Venous S.aureus & Coag-Neg Staph PNA FISH - Final 08/01/17 07:30 Blood-Venous Blood Culture - Final Coagulase Neg Staphylococcus 08/01/17 07:30 Blood-Venous Gram Stain - Final 08/01/17 08:09 Nose MRSA Culture (Admit) - Final MRSA NOT DETECTED Most Recent Lab Values WBC 2.7 10^3/ul (4.5-11.0) L* D 08/21/17 05:00 RBC 2.82 10^6/uL (3.5-6.1) L 08/21/17 05:00 Hgb 8.3 g/dL (12.0-16.0) L D 08/21/17 05:00 Hct 25.7 % (36.0-48.0) L 08/21/17 05:00 MCV 91.1 fl (80.0-105.0) 08/21/17 05:00 MCH 29.4 pg (25.0-35.0) 08/21/17 05:00 MCHC 32.3 g/dl (31.0-37.0) 08/21/17 05:00 RDW 16.6 % (11.5-14.5) H 08/21/17 05:00 Plt Count 169 10^3/uL (120.0-450.0) 08/21/17 05:00 MPV 9.5 fl (7.0-11.0) 08/21/17 05:00 Gran % 68.9 % (50.0-68.0) H 08/21/17 05:00 Lymph % (Auto) 22.1 % (22.0-35.0) 08/21/17 05:00 Wilcox % (Auto) 9.0 % (1.0-6.0) H 08/21/17 05:00 Eos % (Auto) 0.0 % (1.5-5.0) L 08/21/17 05:00 Baso % (Auto) 0.0 % (0.0-3.0) 08/21/17 05:00 Gran # 1.84 (1.4-6.5) 08/21/17 05:00 Lymph # 0.6 (1.2-3.4) L 08/21/17 05:00 Wilcox # 0.2 (0.1-0.6) 08/21/17 05:00 Eos # 0.0 (0.0-0.7) 08/21/17 05:00 Baso # 0.00 K/mm3 (0.0-2.0) 08/21/17 05:00 Neutrophils % (Manual) 89 % (50.0-70.0) H 08/05/17 05:00 Band Neutrophils % 1 % (0-2) 08/05/17 05:00 Lymphocytes % (Manual) 6 % (22.0-35.0) L 08/05/17 05:00 Monocytes % (Manual) 4 % (1.0-6.0) 08/05/17 05:00 Platelet Evaluation Normal (NORMAL) 08/05/17 05:00 Polychromasia Slight 08/05/17 05:00 Hypochromasia 1+ 08/05/17 05:00 Anisocytosis (manual) 1+ 08/05/17 05:00 PT 12.3 Seconds (9.9-11.8) H 08/21/17 09:00 INR 1.14 (0.93-1.08) H 08/21/17 09:00 APTT 31.1 Seconds (23.7-30.8) H 08/21/17 09:00 pCO2 22 mm/Hg (35-45) L 08/21/17 05:18 pO2 139.0 mm/Hg (80-100) H 08/21/17 05:18 HCO3 14.9 mmol/L (21-28) L 08/21/17 05:18 ABG pH 7.44 (7.35-7.45) 08/21/17 05:18 ABG Total CO2 15.6 mmol.L (22-28) L 08/21/17 05:18 ABG O2 Saturation 99.6 % (95-98) H 08/21/17 05:18 ABG O2 Content 14.9 ML/dl (15-23) L 08/21/17 05:18 ABG Base Excess -7.6 mmol/L (-2.0-3.0) L 08/21/17 05:18 ABG Hemoglobin 10.8 g/dL (11.7-17.4) L 08/21/17 05:18 ABG Carboxyhemoglobin 2.1 % (0.5-1.5) H 08/21/17 05:18 POC ABG HHb (Measured) 0.4 % (0-5) 08/21/17 05:18 ABG Methemoglobin 1.2 % (0.0-3.0) 08/21/17 05:18 ABG O2 Capacity 15.0 mL/dl (16-24) L 08/21/17 05:18 ABG Potassium 3.9 mmol/L (3.6-5.2) 08/01/17 09:25 VBG pH 7.38 (7.32-7.43) 08/02/17 02:35 VBG pCO2 52.0 (40-60) 08/02/17 02:35 VBG HCO3 30.8 mmol/l (21-28) H 08/02/17 02:35 VBG Total CO2 32.4 mmol.L (22-28) H 08/02/17 02:35 VBG O2 Sat (Calc) 62.2 % (40-65) 08/02/17 02:35 VBG Base Excess 4.4 mmol/L (0.0-2.0) H 08/02/17 02:35 VBG Potassium 3.6 mmol/L (3.6-5.2) 08/02/17 02:35 Hgb O2 Saturation 96.3 % (95.0-98.0) 08/21/17 05:18 Sodium 145.0 mmol/L (132-148) 08/02/17 02:35 Chloride 112.0 mmol/L (98-107) H 08/02/17 02:35 Glucose 107 mg/dl (65-105) H 08/02/17 02:35 Lactate 1.8 mmol/L (0.7-2.1) 08/02/17 02:35 FiO2 50.0 % 08/21/17 05:18 PEEP 5 08/01/17 09:25 Pressure Support 5 08/01/17 09:25 Sodium 143 mmol/L (132-148) 08/21/17 05:00 Potassium 4.5 mmol/L (3.6-5.0) 08/21/17 05:00 Chloride 110 mmol/L (98-107) H 08/21/17 05:00 Carbon Dioxide 16 mmol/L (21-33) L 08/21/17 05:00 Anion Gap 22 (10-20) H 08/21/17 05:00 BUN 38 mg/dL (7-21) H 08/21/17 05:00 Creatinine 2.9 mg/dL (0.7-1.2) H 08/21/17 05:00 Est GFR ( Amer) 20 08/21/17 05:00 Est GFR (Non-Af Amer) 16 08/21/17 05:00 POC Glucose (mg/dL) 113 mg/dL (65-110) H 08/21/17 08:02 Random Glucose 106 mg/dL (70-110) 08/21/17 05:00 Serum Osmolality 303 mosm/kg (271-296) H 08/01/17 11:32 Lactic Acid 4.1 mmol/L (0.7-2.1) H* 08/20/17 19:23 Calcium 8.2 mg/dL (8.4-10.5) L 08/21/17 05:00 Phosphorus 5.2 mg/dL (2.5-4.5) H 08/21/17 07:38 Magnesium 1.6 mg/dL (1.7-2.2) L 08/21/17 07:38 Total Bilirubin 0.6 mg/dL (0.2-1.3) 08/21/17 05:00 AST 40 U/L (14-36) H D 08/21/17 05:00 ALT 28 U/L (7-56) 08/21/17 05:00 Alkaline Phosphatase 81 U/L (38-126) 08/21/17 05:00 Troponin I 0.04 ng/mL D 08/01/17 05:50 Total Protein 5.3 g/dL (5.8-8.3) L 08/21/17 05:00 Albumin 2.6 g/dL (3.0-4.8) L 08/21/17 05:00 Globulin 2.6 gm/dL 08/21/17 05:00 Albumin/Globulin Ratio 1.0 (1.1-1.8) L 08/21/17 05:00 Procalcitonin 124.71 NG/ML (0.19-0.49) H 08/20/17 09:35 Arterial Blood Potassium 3.9 mmol/L (3.6-5.2) 08/01/17 09:25 Venous Blood Potassium 3.6 mmol/L (3.6-5.2) 08/02/17 02:35 Urine Color Yellow (YELLOW) 08/20/17 12:30 Urine Appearance Cloudy (CLEAR) 08/20/17 12:30 Urine pH 5.0 (4.7-8.0) 08/20/17 12:30 Ur Specific [place] 1.015 (1.005-1.035) 08/20/17 12:30 Urine Protein Trace mg/dL (<30 mg/dL) H 08/20/17 12:30 Urine Glucose (UA) Negative mg/dL (NEGATIVE) 08/20/17 12:30 Urine Ketones Negative mg/dL (NEGATIVE) 08/20/17 12:30 Urine Blood Moderate (NEGATIVE) H 08/20/17 12:30 Urine Nitrate Negative (NEGATIVE) 08/20/17 12:30 Urine Bilirubin Negative (NEGATIVE) 08/20/17 12:30 Urine Urobilinogen 0.2 E.U./dL (<1 E.U./dL) 08/20/17 12:30 Ur Leukocyte Esterase Large Pavel/uL (NEGATIVE) H 08/20/17 12:30 Urine RBC 2 - 5 /hpf (0-2) 08/20/17 12:30 Urine WBC 20 - 25 /hpf (0-6) 08/20/17 12:30 Ur Epithelial Cells 1 - 3 /hpf (0-5) 08/20/17 12:30 Urine Bacteria Many (NEG) 08/20/17 12:30 Ur Random Creatinine 63 mg/dL 08/20/17 12:30 Ur Random Sodium 13 meq/L 08/20/17 12:30 Ur Random Potassium 23.2 meq/L 08/05/17 17:30 Vancomycin Trough 20.5 ug/mL (5.0-10.0) H* 08/05/17 22:00 Blood Type O POSITIVE 08/21/17 09:00 Antibody Screen Negative 08/21/17 09:00 BBK History Checked Patient has bt 08/21/17 09:00 Discharge Exam - Head Exam Additional comments: before rounds Attending/Attestation - Attestation I have personally seen and examined this patient.: Yes I have fully participated in the care of the patient.: Yes I have reviewed all pertinent clinical information, including history, physical exam and plan: Yes Notes (Text): 08/21/17 67 year old female with past medical history of uterine cancer, hypertension, diabetes, and history of right parietal mass s/p recent craniotomy and biopsy who was admitted with altered mental status. She was found to have hemorrhagic CVA. She was seen by neurology and neurosurgery, no plan for intervention. While in hospital her mental status remained poor. She was seen by GI and underwent PEG tube placement and feeds were started. Yesterday she has LUNCHRO[employer] MOTHER for hypoxia. She was placed on Bipap and then intubated and transferred to the ICU. After discussion with the patient was made DNR. This morning patient became bradycardic and received atropine. She then lost pulse. She was pronounced . Family member was at bedside and consoled. Nik Nichols MD Hospitalist.
== END 2017-08-21 09:40 | DRG 64 ==
LOC: ED 05:27 → ERH 06:40 → CCU 07:39 → 3RNO 08-10 23:12 → CCU 08-20 08:55
PROVIDERS: ADMIT Hospitalist; ATTEND Internal Medicine
PROC: 5A1945Z Respiratory Ventilation, 24-96 Consecutive Hours (ICD-10-PCS; principal; 2017-08-01)
PROC: 0BH17EZ Insertion of Endotracheal Airway into Trachea, Via Natural or Artificial Opening (ICD-10-PCS; 2017-08-01)
PROC: 5A09557 Assistance with Respiratory Ventilation, Greater than 96 Consecutive Hours, Continuous Positive Airway Pressure (ICD-10-PCS; 2017-08-03)
PROC: 3E0G76Z Introduction of Nutritional Substance into Upper GI, Via Natural or Artificial Opening (ICD-10-PCS; 2017-08-04)
PROC: 0DH67UZ Insertion of Feeding Device into Stomach, Via Natural or Artificial Opening (ICD-10-PCS; 2017-08-04)
PROC: 0JPT0XZ Removal of Tunneled Vascular Access Device from Trunk Subcutaneous Tissue and Fascia, Open Approach (ICD-10-PCS; 2017-08-04)
PROC: 05H533Z Insertion of Infusion Device into Right Subclavian Vein, Percutaneous Approach (ICD-10-PCS; 2017-08-07)
PROC: B546ZZA Ultrasonography of Right Subclavian Vein, Guidance (ICD-10-PCS; 2017-08-07)
PROC: 0DH63UZ Insertion of Feeding Device into Stomach, Percutaneous Approach (ICD-10-PCS; 2017-08-18)
PROC: 0DJ08ZZ Inspection of Upper Intestinal Tract, Via Natural or Artificial Opening Endoscopic (ICD-10-PCS; 2017-08-18)
PROC: 5A1935Z Respiratory Ventilation, Less than 24 Consecutive Hours (ICD-10-PCS; 2017-08-20)
PROC: 0BH17EZ Insertion of Endotracheal Airway into Trachea, Via Natural or Artificial Opening (ICD-10-PCS; 2017-08-20)
DX: I61.5 Nontraumatic intracerebral hemorrhage, intraventricular (principal); G93.6 Cerebral edema; C79.31 Secondary malignant neoplasm of brain; J96.01 Acute respiratory failure with hypoxia; E87.0 Hyperosmolality and hypernatremia; E11.649 Type 2 diabetes mellitus with hypoglycemia without coma; G81.94 Hemiplegia, unspecified affecting left nondominant side; Z68.41 Body mass index [BMI] 40.0-44.9, adult; R13.10 Dysphagia, unspecified; I10 Essential (primary) hypertension; E78.5 Hyperlipidemia, unspecified; D63.8 Anemia in other chronic diseases classified elsewhere; E66.9 Obesity, unspecified; Z66 Do not resuscitate; Z78.1 Physical restraint status; Z85.42 Personal history of malignant neoplasm of other parts of uterus; Z92.21 Personal history of antineoplastic chemotherapy; Z92.3 Personal history of irradiation; Z90.49 Acquired absence of other specified parts of digestive tract; Z90.710 Acquired absence of both cervix and uterus; Z79.899 Other long term (current) drug therapy; Z88.2 Allergy status to sulfonamides; Z88.0 Allergy status to penicillin; Z80.3 Family history of malignant neoplasm of breast